=== PATIENT | female | born 1985 | race African-American/Black ===

== ENCOUNTER 2017-09-10 21:50 | Inpatient (IN) | payer MEDICAID ==
[~2017-09-10] VITALS: Ht 157.5 cm; Wt 49.9 kg
--- NOTE | 2017-09-10 21:47 | Emergency Room Report ---
History of Present Illness General Source: Patient Present Illness HPI Patient is a 31-year-old female presented after increased bleeding. The patient noted have prior history of cervical CVA and is currently receiving chemotherapy [place] to patient was noted to have increased rectal bleeding.The patient reports having had generalized weakness. Allergies: Coded Allergies: No Known Allergies (Unverified , 09/10/17) Patient History Reviewed Nursing Documentation: PMH: Agreed, PSxH: Agreed Review of Systems All Other Systems: negative except mentioned in HPI Physical Exam Sp02 EP Interpretation: reviewed, normal General Appearance: normal inspection, alert, lethargic, Chronically Ill Head: atraumatic ENT: normal ENT inspection, hearing grossly normal, normal voice Neck: normal inspection, full range of motion, supple, no bony tend Respiratory: normal inspection, lungs clear, normal breath sounds, no respiratory distress, no retraction, no wheezing Gastrointestinal: normal inspection, normal bowel sounds, non tender, soft, no guarding, no hernia Genitourinary: no CVA tenderness Musculoskeletal: normal inspection, back normal, normal range of motion Neurologic: normal inspection, alert, oriented x3, responsive, 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 The differential diagnosis included but was not limited to ulcer, diverticulosis, aortic aneurysm, arteriovenous formation, coagulopathy, cancer among others. Because of complexity of patient' s case laboratory testing and imaging studies were ordered. Laboratory testing showed evidence of severe anemia. Patient was noted to have active bleeding. Urinalysis showed evidence of urinary infection. The patient was given IV antibiotics as well as IV fluids she was noted to be tachycardic. The patient was transfused blood after consent was obtained. Patient given IV pain medications. Dr. Dano Guillaume was contacted for inpatient management due to panel physician. Labs Test 09/10/17 22:30 White Blood Count 14.0 K/UL (4.8-10.8) Red Blood Count 3.48 M/UL (4.20-5.40) Hemoglobin 8.1 G/DL (12.0-16.0) Hematocrit 27.5 % (37.0-47.0) Mean Corpuscular Volume 79 FL (80-99) Mean Corpuscular Hemoglobin 23.3 PG (27.0-31.0) Mean Corpuscular Hemoglobin Concent 29.4 G/DL (32.0-36.0) Red Cell Distribution Width 17.2 % (11.6-14.8) Platelet Count 758 K/UL (150-450) Mean Platelet Volume 5.0 FL (6.5-10.1) Neutrophils (%) (Auto) % (45.0-75.0) Lymphocytes (%) (Auto) % (20.0-45.0) Monocytes (%) (Auto) % (1.0-10.0) Eosinophils (%) (Auto) % (0.0-3.0) Basophils (%) (Auto) % (0.0-2.0) EKG Diagnostic Results Rate: tachycardiac - 135 Rhythm: NSR ST Segments: no acute changes ASA given to the pt in ED: No Rhythm Strip Diag. Results EP Interpretation: yes Rhythm: NSR, no PVC's Status: unchanged Disposition: ADMITTED INPATIENT Condition: Serious Harpreet Salinas Sep 10, 2017 21:47
[2017-09-10 22:39] VITALS: BP 103/76
[2017-09-10 23:03] LABS: HEMATOCRIT 27.5 % (37.0-47.0); HEMOGLOBIN 8.1 G/DL (12.0-16.0); MEAN CORPUSCULAR VOLUME 79 FL (80-99); PLATELET COUNT 758 K/UL (150-450); RED BLOOD COUNT 3.48 M/UL (4.20-5.40); RED CELL DISTRIBUTION WIDTH 17.2 % (11.6-14.8)
[2017-09-10 23:15] LABS: ANION GAP 8 mmol/L (5-15); BLOOD UREA NITROGEN 16 mg/dL (7-18); CALCIUM 8.3 MG/DL (8.5-10.1); CARBON DIOXIDE 30 MMOL/L (21-32); CHLORIDE 96 MMOL/L (98-107); CREATININE 0.7 MG/DL (0.55-1.30); POTASSIUM 4.4 MMOL/L (3.5-5.1); SODIUM 133 MMOL/L (136-145)
[2017-09-10 23:20] LABS: ALANINE AMINOTRANSFERASE 32 U/L (12-78); ALBUMIN 2.5 G/DL (3.4-5.0); ALBUMIN/GLOBULIN RATIO 0.5 (1.0-2.7); ALKALINE PHOSPHATASE 107 U/L (46-116); ASPARTATE AMINO TRANSFERASE 33 U/L (15-37); BILIRUBIN,TOTAL 0.3 MG/DL (0.2-1.0)
[2017-09-10 23:48] VITALS: BP 87/62
[2017-09-11] VITALS (12 sets, daily range): BP systolic 93–121; BP diastolic 49–86
[2017-09-11 00:53] LABS: BILIRUBIN, URINE 1+ (NEGATIVE); GLUCOSE, URINE (UA) NEGATIVE (NEGATIVE); KETONES,URINE NEGATIVE (NEGATIVE); LEUKOCYTE ESTERASE ,URINE 3+ (NEGATIVE); NITRITE,URINE NEGATIVE (NEGATIVE); PH,URINE 5 (4.5-8.0); PROTEIN,URINE 1+ (NEGATIVE); UROBILINOGEN,URINE 1 MG/DL (0.0-1.0)
[2017-09-11 01:09] LABS: APPEARANCE,URINE CLOUDY; COLOR,URINE YELLOW
[2017-09-11] MEDS ORDERED: cefTRIAXone 2 GM in NS 55 ML IVPB ONE (01:45)
[2017-09-11] MEDS ORDERED: OXYCODONE-ACET1 EAC5 ORAL (02:37)
[2017-09-11] MEDS ORDERED: Morphine Sulfate 4mg/ml Inj IVP ONE (02:45)
[2017-09-11] MEDS ORDERED: Morphine Sulfate 4mg/ml Inj ONE (03:34)
[2017-09-11] MEDS ORDERED: Morphine Sulfate 2mg/ml Inj IVP PRN (06:15)
[2017-09-11] MEDS ORDERED: Mylanta II UD 30ml ORAL PRN (06:15)
[2017-09-11] MEDS ORDERED: Miralax 17gm pkt ORAL PRN (06:15)
[2017-09-11] MEDS ORDERED: Nitroglycerin Subl 0.4mg tab SL PRN (06:15)
[2017-09-11] MEDS: D5NS 1,000 ML IV SCH (06:38)
[2017-09-11] MEDS ORDERED: Phytonadione 10 MG in D5W 55 ML IVPB ONE (08:00)
[2017-09-11] MEDS ORDERED: Phytonadione 10 mg/mL 1ml amp ONE (09:31)
[2017-09-11 09:45] LABS: BASOPHILS % (AUTO) 0.9 % (0.0-2.0); EOSINOPHILS % (AUTO) 0.3 % (0.0-3.0); HEMATOCRIT 33.9 % (37.0-47.0); HEMOGLOBIN 10.5 G/DL (12.0-16.0); LYMPHOCYTES % (AUTO) 7.5 % (20.0-45.0); MEAN CORPUSCULAR VOLUME 84 FL (80-99); MONOCYTES % (AUTO) 6.6 % (1.0-10.0); NEUTROPHILS % (AUTO) 84.7 % (45.0-75.0); PLATELET COUNT 488 K/UL (150-450); RED BLOOD COUNT 4.03 M/UL (4.20-5.40); RED CELL DISTRIBUTION WIDTH 15.5 % (11.6-14.8); WHITE BLOOD COUNT 11.2 K/UL (4.8-10.8)
[2017-09-11] MEDS: Morphine Sulfate 4mg/ml Inj IVP PRN ×3 (11:33→21:14)
--- NOTE | 2017-09-11 15:26 | Consultation ---
History of Present Illness General Date patient seen: Sep 11, 2017 Chief Complaint: Gastrointestinal Bleed Reason for Consultation: inpatient management Present Illness HPI 31-year-old female with hx of cervical cancer, on chemotherapy presented after increased bleeding. The patient reports having had generalized weakness. she is admitted for further work up. Allergies: Coded Allergies: No Known Allergies (Unverified , 09/10/17) Medication History Scheduled PRN Oxycodone Hcl/Acetaminophen 10-325* (Oxycodone-Acetaminophen 10-325*), 1 TAB ORAL Q6H PRN for For Pain, (Reported) Patient History Healthcare decision maker N Resuscitation status Advanced Directive on File Past Medical/Surgical History Past Medical/Surgical History: (1) Cervical cancer Review of Systems Constitutional: Reports: malaise, weakness Physical Exam General Appearance: cachetic Lines, tubes and drains: peripheral, central line HEENT: atraumatic Neck: non-tender, normal alignment Respiratory/Chest: lungs clear, normal breath sounds Cardiovascular/Chest: normal rate Abdomen: normal bowel sounds Genitourinary/Rectal: normal genital exam Extremities: normal range of motion, normal inspection Last 24 Hour Vital Signs Date Time Temp Pulse Resp B/P (MAP) Pulse Ox O2 Delivery O2 Flow Rate FiO2 09/11/17 14:45 98.7 100 12 113/61 100 Room Air 93 09/11/17 14:27 98.7 93 12 113/61 100 Room Air 09/11/17 11:08 100 14 108/73 100 Room Air 09/11/17 10:13 101 15 101/71 100 Room Air 09/11/17 09:25 98.5 09/11/17 05:40 98.5 107 17 103/72 98 Room Air 09/11/17 05:40 98.5 107 17 09/11/17 04:40 99.3 107 17 104/80 98 Room Air 09/11/17 03:30 99.3 113 16 09/11/17 03:30 99.3 113 16 112/86 99 Room Air 09/11/17 03:22 98.0 116 13 09/11/17 03:15 98.0 116 18 103/50 100 Room Air 09/11/17 02:50 98.1 114 13 09/11/17 02:50 98.1 114 13 109/71 96 Room Air 09/11/17 01:40 98.8 123 15 93/49 100 Room Air 09/11/17 01:40 98.8 123 15 09/11/17 01:25 98.7 121 17 09/11/17 01:25 98.7 121 17 103/70 100 Room Air 09/10/17 23:48 97.7 112 17 87/62 100 Room Air 09/10/17 22:39 97.7 127 16 103/76 100 Room Air 09/10/17 21:46 97.7 142 16 102/73 98 Room Air Intake and Output 09/10/17 09/11/17 19:00 07:00 Intake Total 1500 ml Balance 1500 ml Intake IV Total 1000 ml Blood Product 500 ml # Voids 1 Laboratory Tests Test 09/10/17 22:10 09/10/17 22:30 09/11/17 00:35 09/11/17 09:10 Lab Scanned Report Blood Bank/Transfusion White Blood Count 14.0 K/UL (4.8-10.8) H 11.2 K/UL (4.8-10.8) H Red Blood Count 3.48 M/UL (4.20-5.40) L 4.03 M/UL (4.20-5.40) L Hemoglobin 8.1 G/DL (12.0-16.0) L 10.5 G/DL (12.0-16.0) L Hematocrit 27.5 % (37.0-47.0) L 33.9 % (37.0-47.0) L Mean Corpuscular Volume 79 FL (80-99) L 84 FL (80-99) Mean Corpuscular Hemoglobin 23.3 PG (27.0-31.0) L 26.1 PG (27.0-31.0) L Mean Corpuscular Hemoglobin Concent 29.4 G/DL (32.0-36.0) L 31.0 G/DL (32.0-36.0) L Red Cell Distribution Width 17.2 % (11.6-14.8) H 15.5 % (11.6-14.8) H Platelet Count 758 K/UL (150-450) H 488 K/UL (150-450) H Mean Platelet Volume 5.0 FL (6.5-10.1) L 4.9 FL (6.5-10.1) L Neutrophils (%) (Auto) % (45.0-75.0) 84.7 % (45.0-75.0) H Lymphocytes (%) (Auto) % (20.0-45.0) 7.5 % (20.0-45.0) L Monocytes (%) (Auto) % (1.0-10.0) 6.6 % (1.0-10.0) Eosinophils (%) (Auto) % (0.0-3.0) 0.3 % (0.0-3.0) Basophils (%) (Auto) % (0.0-2.0) 0.9 % (0.0-2.0) Prothrombin Time 10.7 SEC (9.30-11.50) Prothromb Time International Ratio 1.0 (0.9-1.1) Activated Partial Thromboplast Time 37 SEC (23-33) H Sodium Level 133 MMOL/L (136-145) L Potassium Level 4.4 MMOL/L (3.5-5.1) Chloride Level 96 MMOL/L (98-107) L Carbon Dioxide Level 30 MMOL/L (21-32) Anion Gap 8 mmol/L (5-15) Blood Urea Nitrogen 16 mg/dL (7-18) Creatinine 0.7 MG/DL (0.55-1.30) Estimat Glomerular Filtration Rate > 60 mL/min (>60) Glucose Level 119 MG/DL (74-106) H Lactic Acid Level 1.10 mmol/L (0.66-2.22) Calcium Level 8.3 MG/DL (8.5-10.1) L Total Bilirubin 0.3 MG/DL (0.2-1.0) Aspartate Amino Transf (AST/SGOT) 33 U/L (15-37) Alanine Aminotransferase (ALT/SGPT) 32 U/L (12-78) Alkaline Phosphatase 107 U/L (46-116) Total Protein 8.0 G/DL (6.4-8.2) Albumin 2.5 G/DL (3.4-5.0) L Globulin 5.5 g/dL Albumin/Globulin Ratio 0.5 (1.0-2.7) L Urine Color Yellow Urine Appearance Cloudy Urine pH 5 (4.5-8.0) Urine Specific [place] 1.025 (1.005-1.035) Urine Protein 1+ (NEGATIVE) H Urine Glucose (UA) Negative (NEGATIVE) Urine Ketones Negative (NEGATIVE) Urine Occult Blood 2+ (NEGATIVE) H Urine Nitrite Negative (NEGATIVE) Urine Bilirubin 1+ (NEGATIVE) H Urine Ictotest Positive Urine Urobilinogen 1 MG/DL (0.0-1.0) H Urine Leukocyte Esterase 3+ (NEGATIVE) H Urine RBC 2-4 /HPF (0 - 2) H Urine WBC Tntc /HPF (0 - 2) H Urine Squamous Epithelial Cells Many /LPF (NONE/OCC) H Urine Bacteria Few /HPF (NONE) Height (Feet): 5 Height (Inches): 2.00 Weight (Pounds): 110 Medications Current Medications Medications (Trade) Dose Ordered Sig/Francoise Route PRN Reason Start Time Stop Time Status Last Admin Dose Admin Acetaminophen (Tylenol) 650 mg Q4H PRN ORAL fever 09/11/17 06:15 10/11/17 06:14 Al Hydroxide/Mg Hydroxide (Mylanta II) 30 ml Q6H PRN ORAL dyspepsia 09/11/17 06:15 10/11/17 06:14 Dextrose (Dextrose 50%) STAT PRN IV Hypoglycemia 09/11/17 06:15 10/11/17 06:14 Dextrose/Sodium Chloride 1,000 ml @ 100 mls/hr Q10H IV 09/11/17 06:14 10/11/17 06:13 09/11/17 06:38 Diphenhydramine HCl (Benadryl) 25 mg Q6H PRN ORAL Itching/Pruritis 09/11/17 06:15 10/11/17 06:14 Morphine Sulfate (Morphine Sulfate) 4 mg Q4H PRN IVP Pain 7-10 09/11/17 10:30 09/18/17 10:29 09/11/17 11:33 Nitroglycerin (Ntg) 0.4 mg Q5M X 3 DOSES PRN SL Prn Chest Pain 09/11/17 06:15 10/11/17 06:14 Ondansetron HCl (Zofran) 4 mg Q6H PRN IVP Nausea & Vomiting 09/11/17 06:15 10/11/17 06:14 Polyethylene Glycol (Miralax) 17 gm HSPRN PRN ORAL Constipation 09/11/17 06:15 10/11/17 06:14 Temazepam (Restoril) 15 mg HSPRN PRN ORAL Insomnia 09/11/17 06:15 09/18/17 06:14 Assessment/Plan Problem List: (1) Severe anemia ICD Codes: D64.9 - Anemia, unspecified SNOMED: 988457683 (2) Cervical cancer ICD Codes: C53.9 - Malignant neoplasm of cervix uteri, unspecified SNOMED: 588833613 (3) UTI (urinary tract infection) ICD Codes: N39.0 - Urinary tract infection, site not specified SNOMED: 37764300 Assessment/Plan prbc prn symptomatic treatment check h/h oncology evaluation JL CHAVEZ Sep 11, 2017 15:26
--- NOTE | 2017-09-11 17:15 | History and Physical Report ---
DATE OF ADMISSION: 09/11/2017 TIME SEEN: 3 p.m. CONSULTANTS: 1. Dimitrios Yung M.D. 2. Chris Spencer M.D. 3. Lon Jordan M.D. 4. Grant Ochoa M.D. CHIEF COMPLAINT: Abdominal pain, asthma, and history of cervical cancer. BRIEF HISTORY: This is a 32-year-old female with history of cervical cancer status post chemo and surgery presents with increasing abdominal pain for two days, increased to 8/10, asthma, slight nausea and vomiting, came to [facility], being diagnosed with the above, being admitted to [facility] floor shortly. Currently, slightly anxious, agitated in bed secondary to pain. No complaint otherwise. PAST MEDICAL HISTORY: Includes cervical cancer one year ago status post chemo. PAST SURGICAL HISTORY: Cervical surgery in 2017. MEDICATIONS: Include morphine, Tylenol, MiraLAX, Restoril, Benadryl, and Mylanta. ALLERGIES: Denies. SOCIAL HISTORY: No smoking. No alcohol. No intravenous drug abuse. FAMILY HISTORY: Noncontributory. REVIEW OF SYSTEMS: No chest pain. Slight short of breath. Slight nausea and vomiting. No diarrhea. PHYSICAL EXAMINATION: GENERAL: Slightly anxious in bed, oriented x3, and in no acute distress. VITAL SIGNS: Temperature is 98, pulse 100, respirations 12, and blood pressure 113/61. CARDIOVASCULAR: . LUNGS: Distant. ABDOMEN: Bowel sounds distant. Soft. No guarding. No rigidity. No rebound. EXTREMITIES: Show no cyanosis, clubbing, or edema. NEURO: The patient moves all extremities. Slightly weak. LABORATORY DATA: Lab exam show white count 11.2, hemoglobin and hematocrit 10 and 33, and platelets 288. BMP show sodium 133, chloride 96, and glucose 119. Albumin 2.5. INR is 1.0 and PTT is 37. Urinalysis, 3+ leukocyte esterase, otherwise 1+ protein, and 2+ occult blood. ASSESSMENT: 1. Abdominal pain. 2. Asthma. 3. Malnutrition. 4. Hyponatremia. 5. Urinary tract infection. 6. Gastrointestinal bleed. 7. Anemia. 8. Cervical cancer. PLAN: 1. Continue premeds. 2. Antiemetics. 3. Pain control. 4. OT, PT, and dietary evaluation. 5. CBC and BMP in the morning. 6. Antibiotics per Infectious Diseases. 7. Dr. Yung, Dr. Ochoa, Dr. Spencre, Dr. Jordan, Dr. Weiss, and Dr. Mauricio to consult. Dano Guillaume D.O. DR: THERESA JOB#: [id number] CC:
--- NOTE | 2017-09-11 19:00 | Consultation ---
DATE OF CONSULTATION: 09/11/2017 INFECTIOUS DISEASES CONSULTATION CONSULTING PHYSICIAN: Marco Dunbar M.D. PRIMARY ATTENDING PHYSICIAN: Dano Guillaume D.O. REASON FOR CONSULTATION: Pyuria, UTI. HISTORY OF PRESENT ILLNESS: The patient is a 32-year-old female admitted last night complaining of abdominal pain and rectal bleeding. The patient has history of cervical cancer diagnosed in 09/2016, with recurrence. The patient had surgery and chemotherapy. The last chemotherapy was given 1 month ago. She has lower abdominal and back pain, passing blood clots in stool. The patient has no fever. Since admission, the patient received blood transfusion for anemia. PAST MEDICAL HISTORY: Cervical cancer, on chemotherapy. MEDICATIONS: Getting morphine sulfate, Tylenol, MiraLAX, Zofran, temazepam, diphenhydramine, and also received a dose of ceftriaxone in the ER. SOCIAL HISTORY: Single. She has 3 children. REVIEW OF SYSTEMS: She has significant weight loss. In the past 3 months, she lost 40 pounds. No fever. No chills. No coughing. No nausea. No vomiting. Diarrhea and blood in stool, lower abdominal pain, back pain. PHYSICAL EXAMINATION: VITAL SIGNS: Temperature 98.7, pulse 100, and blood pressure is 113/61. GENERAL APPEARANCE: No acute distress. HEENT: [place] conjunctivae. No oral lesion. HEART: S1, S2. Regular. LUNGS: Clear. ABDOMEN: Soft. EXTREMITIES: No edema. LABORATORY AND DIAGNOSTIC DATA: WBC is 11.2 coming down from 14,000, hemoglobin 10.5 which is after blood transfusion coming up from 8.1, hematocrit 33.9, and platelets 488,000. Sodium 133, potassium 4.4, chloride 96, bicarbonate 30, BUN 16, and creatinine 0.7. UA showed WBC too numerous to count, leukocyte esterase 3+. IMPRESSION: Pyuria, may have urinary tract infection. The patient has lower abdominal pain, also has history of cervical cancer, on chemotherapy, has rectal bleeding, and has anemia status post transfusion. RECOMMENDATION: We will continue with Rocephin. At the end of my exam, I thank Dr. Dano Guillaume for involving me in the care of this patient. We will follow up the cultures. Marco Dunbar M.D. DR: DONTA JOB#: [id number] CC:
--- NOTE | 2017-09-11 21:49 | Cardiology Report ---
APPROVED REPORT EKG Measurement Heart [id number] Sinus tachycardia Rightward axis Abnormal ECG
[2017-09-12] VITALS: BP 112/79
[2017-09-12] MEDS: Morphine Sulfate 4mg/ml Inj IVP PRN ×5 (02:10→20:47)
[2017-09-12 04:00] VITALS: BP 113/83
[2017-09-12 08:00] VITALS: BP 115/77
[2017-09-12 08:26] LABS: BASOPHILS % (AUTO) 1.2 % (0.0-2.0); EOSINOPHILS % (AUTO) 1.1 % (0.0-3.0); HEMATOCRIT 28.4 % (37.0-47.0); HEMOGLOBIN 9.2 G/DL (12.0-16.0); LYMPHOCYTES % (AUTO) 7.5 % (20.0-45.0); MEAN CORPUSCULAR VOLUME 83 FL (80-99); MONOCYTES % (AUTO) 9.4 % (1.0-10.0); NEUTROPHILS % (AUTO) 80.8 % (45.0-75.0); PLATELET COUNT 492 K/UL (150-450); RED CELL DISTRIBUTION WIDTH 15.8 % (11.6-14.8); WHITE BLOOD COUNT 8.7 K/UL (4.8-10.8)
[2017-09-12 08:43] LABS: ALBUMIN 2.4 G/DL (3.4-5.0); ALBUMIN/GLOBULIN RATIO 0.5 (1.0-2.7); ALKALINE PHOSPHATASE 94 U/L (46-116); AMYLASE 24 U/L (25-115); ANION GAP 7 mmol/L (5-15); ASPARTATE AMINO TRANSFERASE 21 U/L (15-37); BILIRUBIN,TOTAL 0.6 MG/DL (0.2-1.0); BLOOD UREA NITROGEN 8 mg/dL (7-18); CALCIUM 8.4 MG/DL (8.5-10.1); CARBON DIOXIDE 28 MMOL/L (21-32); CHLORIDE 98 MMOL/L (98-107); CREATININE 0.6 MG/DL (0.55-1.30); POTASSIUM 3.8 MMOL/L (3.5-5.1); SODIUM 133 MMOL/L (136-145)
--- NOTE | 2017-09-12 09:08 | Consultation ---
History of Present Illness General Date patient seen: Sep 12, 2017 Chief Complaint: Present Illness Allergies: Coded Allergies: No Known Allergies (Unverified , 09/10/17) Medication History Scheduled PRN Oxycodone Hcl/Acetaminophen 10-325* (Oxycodone-Acetaminophen 10-325*), 1 TAB ORAL Q6H PRN for For Pain, (Reported) Patient History Healthcare decision maker N Resuscitation status Full Code Advanced Directive on File No Physical Exam Last 24 Hour Vital Signs Date Time Temp Pulse Resp B/P (MAP) Pulse Ox O2 Delivery O2 Flow Rate FiO2 09/12/17 04:00 98.2 96 20 113/83 99 Room Air 09/12/17 04:00 85 09/12/17 00:00 98.2 94 20 112/79 100 Room Air 09/12/17 00:00 92 09/11/17 20:00 99.0 86 18 121/73 99 Room Air 09/11/17 16:49 98.7 09/11/17 16:00 98.2 92 18 116/77 99 Room Air 09/11/17 16:00 92 09/11/17 14:45 98.7 100 12 113/61 100 Room Air 93 09/11/17 14:27 98.7 93 12 113/61 100 Room Air 09/11/17 11:08 100 14 108/73 100 Room Air 09/11/17 10:13 101 15 101/71 100 Room Air 09/11/17 09:25 98.5 Intake and Output 09/11/17 09/12/17 19:00 07:00 Intake Total 200 ml Balance 200 ml Intake Oral 200 ml # Voids 1 Laboratory Tests Test 09/11/17 09:10 09/11/17 21:20 09/12/17 07:35 White Blood Count 11.2 K/UL (4.8-10.8) H 8.7 K/UL (4.8-10.8) Red Blood Count 4.03 M/UL (4.20-5.40) L 3.40 M/UL (4.20-5.40) L Hemoglobin 10.5 G/DL (12.0-16.0) L 9.2 G/DL (12.0-16.0) L Hematocrit 33.9 % (37.0-47.0) L 28.4 % (37.0-47.0) L Mean Corpuscular Volume 84 FL (80-99) 83 FL (80-99) Mean Corpuscular Hemoglobin 26.1 PG (27.0-31.0) L 27.2 PG (27.0-31.0) Mean Corpuscular Hemoglobin Concent 31.0 G/DL (32.0-36.0) L 32.6 G/DL (32.0-36.0) Red Cell Distribution Width 15.5 % (11.6-14.8) H 15.8 % (11.6-14.8) H Platelet Count 488 K/UL (150-450) H 492 K/UL (150-450) H Mean Platelet Volume 4.9 FL (6.5-10.1) L 5.2 FL (6.5-10.1) L Neutrophils (%) (Auto) 84.7 % (45.0-75.0) H 80.8 % (45.0-75.0) H Lymphocytes (%) (Auto) 7.5 % (20.0-45.0) L 7.5 % (20.0-45.0) L Monocytes (%) (Auto) 6.6 % (1.0-10.0) 9.4 % (1.0-10.0) Eosinophils (%) (Auto) 0.3 % (0.0-3.0) 1.1 % (0.0-3.0) Basophils (%) (Auto) 0.9 % (0.0-2.0) 1.2 % (0.0-2.0) Reticulocyte Count 0.7 % (0.0-2.0) Soluble Transferrin Receptor Pending Ferritin 209 NG/ML (8-388) Vitamin B12 Level 1050 PG/ML (193-986) H Thyroid Stimulating Hormone (TSH) 0.787 uiU/mL (0.358-3.740) Prothrombin Time 10.2 SEC (9.30-11.50) Prothromb Time International Ratio 1.0 (0.9-1.1) Activated Partial Thromboplast Time 37 SEC (23-33) H Sodium Level 133 MMOL/L (136-145) L Potassium Level 3.8 MMOL/L (3.5-5.1) Chloride Level 98 MMOL/L (98-107) Carbon Dioxide Level 28 MMOL/L (21-32) Anion Gap 7 mmol/L (5-15) Blood Urea Nitrogen 8 mg/dL (7-18) Creatinine 0.6 MG/DL (0.55-1.30) Estimat Glomerular Filtration Rate > 60 mL/min (>60) Glucose Level 87 MG/DL (74-106) Calcium Level 8.4 MG/DL (8.5-10.1) L Total Bilirubin 0.6 MG/DL (0.2-1.0) Aspartate Amino Transf (AST/SGOT) 21 U/L (15-37) Alanine Aminotransferase (ALT/SGPT) Pending Alkaline Phosphatase 94 U/L (46-116) Total Protein 7.3 G/DL (6.4-8.2) Albumin 2.4 G/DL (3.4-5.0) L Globulin 4.9 g/dL Albumin/Globulin Ratio 0.5 (1.0-2.7) L Amylase Level 24 U/L (25-115) L Lipase 62 U/L (73-393) L Height (Feet): 5 Height (Inches): 2.00 Weight (Pounds): 110 Medications Current Medications Medications (Trade) Dose Ordered Sig/Francoise Route PRN Reason Start Time Stop Time Status Last Admin Dose Admin Acetaminophen (Tylenol) 650 mg Q4H PRN ORAL fever 09/11/17 06:15 10/11/17 06:14 Al Hydroxide/Mg Hydroxide (Mylanta II) 30 ml Q6H PRN ORAL dyspepsia 09/11/17 06:15 10/11/17 06:14 Ceftriaxone Sodium 1 gm/ Dextrose 55 ml @ 110 mls/hr Q24H IVPB 09/12/17 08:00 09/19/17 07:59 Dextrose (Dextrose 50%) STAT PRN IV Hypoglycemia 09/11/17 06:15 10/11/17 06:14 Dextrose/Sodium Chloride 1,000 ml @ 100 mls/hr Q10H IV 09/11/17 06:14 10/11/17 06:13 09/11/17 06:38 Diphenhydramine HCl (Benadryl) 25 mg Q6H PRN ORAL Itching/Pruritis 09/11/17 06:15 10/11/17 06:14 Morphine Sulfate (Morphine Sulfate) 4 mg Q4H PRN IVP Pain 7-10 09/11/17 10:30 09/18/17 10:29 09/12/17 06:23 Nitroglycerin (Ntg) 0.4 mg Q5M X 3 DOSES PRN SL Prn Chest Pain 09/11/17 06:15 10/11/17 06:14 Ondansetron HCl (Zofran) 4 mg Q6H PRN IVP Nausea & Vomiting 09/11/17 06:15 10/11/17 06:14 Polyethylene Glycol (Miralax) 17 gm HSPRN PRN ORAL Constipation 09/11/17 06:15 10/11/17 06:14 Temazepam (Restoril) 15 mg HSPRN PRN ORAL Insomnia 09/11/17 06:15 09/18/17 06:14 Assessment/Plan Assessment/Plan (1) Intractable abdominal pain (2) Cervical CA Seen dictated. ROSA MARIA MELGAR Sep 12, 2017 09:08
[2017-09-12 09:52] LABS: ALANINE AMINOTRANSFERASE 30 U/L (12-78)
[2017-09-12] MEDS: cefTRIAXone 1 GM in D5W 55 ML IVPB SCH (11:48)
[2017-09-12 12:00] VITALS: BP 112/76
[2017-09-12] MEDS: D5NS 1,000 ML IV SCH ×3 (12:14→22:14)
--- NOTE | 2017-09-12 13:20 | Infectious Diseases Prog Note ---
Assessment/Plan Assessment/Plan A; Pyuria/ UTI Cervical cancer GI bleeding Anemia P; Continue Rocephin Subjective ROS Limited/Unobtainable: No Constitutional: Reports: other - feels better HEENT: Reports: no symptoms Cardiovascular: Reports: no symptoms Gastrointestinal/Abdominal: Reports: no symptoms, other - on clear liquid diet Genitourinary: Reports: no symptoms Musculoskeletal: Reports: pain, other - controlled Allergies: Coded Allergies: No Known Allergies (Unverified , 09/10/17) Objective Vital Signs Last 24 Hour Vital Signs Date Time Temp Pulse Resp B/P (MAP) Pulse Ox O2 Delivery O2 Flow Rate FiO2 09/12/17 04:00 98.2 96 20 113/83 99 Room Air 09/12/17 04:00 85 09/12/17 00:00 98.2 94 20 112/79 100 Room Air 09/12/17 00:00 92 09/11/17 20:00 99.0 86 18 121/73 99 Room Air 09/11/17 16:49 98.7 09/11/17 16:00 98.2 92 18 116/77 99 Room Air 09/11/17 16:00 92 09/11/17 14:45 98.7 100 12 113/61 100 Room Air 93 09/11/17 14:27 98.7 93 12 113/61 100 Room Air Height (Feet): 5 Height (Inches): 2.00 Weight (Pounds): 110 General Appearance: no acute distress HEENT: anicteric Respiratory/Chest: lungs clear Cardiovascular: normal rate Abdomen: soft, non tender Extremities: no edema Neurologic/Psychiatric: alert, oriented x 3, responsive Microbiology Date/Time Source Procedure Growth Status 09/10/17 22:35 Blood Blood Culture - Preliminary NO GROWTH AFTER 24 HOURS Resulted 09/10/17 22:30 Blood Blood Culture - Preliminary NO GROWTH AFTER 24 HOURS Resulted 09/11/17 00:35 Urine,Clean Catch Urine Culture - Preliminary Mixed Gram Positive Organism Resulted Laboratory Tests Test 09/11/17 21:20 09/12/17 07:35 Reticulocyte Count 0.7 % (0.0-2.0) Soluble Transferrin Receptor Pending Ferritin 209 NG/ML (8-388) Vitamin B12 Level 1050 PG/ML (193-986) H Thyroid Stimulating Hormone (TSH) 0.787 uiU/mL (0.358-3.740) White Blood Count 8.7 K/UL (4.8-10.8) Red Blood Count 3.40 M/UL (4.20-5.40) L Hemoglobin 9.2 G/DL (12.0-16.0) L Hematocrit 28.4 % (37.0-47.0) L Mean Corpuscular Volume 83 FL (80-99) Mean Corpuscular Hemoglobin 27.2 PG (27.0-31.0) Mean Corpuscular Hemoglobin Concent 32.6 G/DL (32.0-36.0) Red Cell Distribution Width 15.8 % (11.6-14.8) H Platelet Count 492 K/UL (150-450) H Mean Platelet Volume 5.2 FL (6.5-10.1) L Neutrophils (%) (Auto) 80.8 % (45.0-75.0) H Lymphocytes (%) (Auto) 7.5 % (20.0-45.0) L Monocytes (%) (Auto) 9.4 % (1.0-10.0) Eosinophils (%) (Auto) 1.1 % (0.0-3.0) Basophils (%) (Auto) 1.2 % (0.0-2.0) Prothrombin Time 10.2 SEC (9.30-11.50) Prothromb Time International Ratio 1.0 (0.9-1.1) Activated Partial Thromboplast Time 37 SEC (23-33) H Sodium Level 133 MMOL/L (136-145) L Potassium Level 3.8 MMOL/L (3.5-5.1) Chloride Level 98 MMOL/L (98-107) Carbon Dioxide Level 28 MMOL/L (21-32) Anion Gap 7 mmol/L (5-15) Blood Urea Nitrogen 8 mg/dL (7-18) Creatinine 0.6 MG/DL (0.55-1.30) Estimat Glomerular Filtration Rate > 60 mL/min (>60) Glucose Level 87 MG/DL (74-106) Calcium Level 8.4 MG/DL (8.5-10.1) L Total Bilirubin 0.6 MG/DL (0.2-1.0) Aspartate Amino Transf (AST/SGOT) 21 U/L (15-37) Alanine Aminotransferase (ALT/SGPT) 30 U/L (12-78) Alkaline Phosphatase 94 U/L (46-116) Total Protein 7.3 G/DL (6.4-8.2) Albumin 2.4 G/DL (3.4-5.0) L Globulin 4.9 g/dL Albumin/Globulin Ratio 0.5 (1.0-2.7) L Amylase Level 24 U/L (25-115) L Lipase 62 U/L (73-393) L Current Medications Medications (Trade) Dose Ordered Sig/[place] Route PRN Reason Start Time Stop Time Status Last Admin Dose Admin Acetaminophen (Tylenol) 650 mg Q4H PRN ORAL fever 09/11/17 06:15 10/11/17 06:14 Al Hydroxide/Mg Hydroxide (Mylanta II) 30 ml Q6H PRN ORAL dyspepsia 09/11/17 06:15 10/11/17 06:14 Ceftriaxone Sodium 1 gm/ Dextrose 55 ml @ 110 mls/hr Q24H IVPB 09/12/17 08:00 09/19/17 07:59 09/12/17 11:48 Dextrose (Dextrose 50%) STAT PRN IV Hypoglycemia 09/11/17 06:15 10/11/17 06:14 Dextrose/Sodium Chloride 1,000 ml @ 100 mls/hr Q10H IV 09/11/17 06:14 10/11/17 06:13 09/11/17 06:38 Diphenhydramine HCl (Benadryl) 25 mg Q6H PRN ORAL Itching/Pruritis 09/11/17 06:15 10/11/17 06:14 Morphine Sulfate (Morphine Sulfate) 4 mg Q4H PRN IVP Pain 7-10 09/11/17 10:30 09/18/17 10:29 09/12/17 10:08 Nitroglycerin (Ntg) 0.4 mg Q5M X 3 DOSES PRN SL Prn Chest Pain 09/11/17 06:15 10/11/17 06:14 Ondansetron HCl (Zofran) 4 mg Q6H PRN IVP Nausea & Vomiting 09/11/17 06:15 10/11/17 06:14 Oxycodone/ Acetaminophen (Percocet 10/325) 1 tab Q6H PRN ORAL Moderate Breakthru Pain (5-7) 09/12/17 10:00 09/19/17 09:59 09/12/17 12:10 Polyethylene Glycol (Miralax) 17 gm HSPRN PRN ORAL Constipation 09/11/17 06:15 10/11/17 06:14 Temazepam (Restoril) 15 mg HSPRN PRN ORAL Insomnia 09/11/17 06:15 09/18/17 06:14 CHERYLE WOLFE Sep 12, 2017 13:20
--- NOTE | 2017-09-12 14:48 | Pulmonology Progress Note ---
Assessment/Plan Problems: (1) Severe anemia (2) Cervical cancer (3) UTI (urinary tract infection) Assessment/Plan feeling better continue abx check cultures symptomatic treatment med/surg Subjective ROS Limited/Unobtainable: No Constitutional: Reports: no symptoms HEENT: Repors: no symptoms Allergies: Coded Allergies: No Known Allergies (Unverified , 09/10/17) Objective Last 24 Hour Vital Signs Date Time Temp Pulse Resp B/P (MAP) Pulse Ox O2 Delivery O2 Flow Rate FiO2 09/12/17 12:00 98.1 90 20 112/76 98 Room Air 09/12/17 08:00 97.9 99 20 115/77 99 Room Air 09/12/17 04:00 98.2 96 20 113/83 99 Room Air 09/12/17 04:00 85 09/12/17 00:00 98.2 94 20 112/79 100 Room Air 09/12/17 00:00 92 09/11/17 20:00 99.0 86 18 121/73 99 Room Air 09/11/17 16:49 98.7 09/11/17 16:00 98.2 92 18 116/77 99 Room Air 09/11/17 16:00 92 Intake and Output 09/11/17 09/12/17 19:00 07:00 Intake Total 200 ml Balance 200 ml Intake Oral 200 ml # Voids 1 Objective . General Appearance: cachetic HEENT: normocephalic, atraumatic Respiratory/Chest: chest wall non-tender, normal breath sounds Breasts: no masses Cardiovascular: normal peripheral pulses Abdomen: normal bowel sounds, soft, non tender Genitourinary: normal external genitalia Extremities: no cyanosis Skin: no lesions Neurologic/Psychiatric: feather edger II-XII grossly normal Microbiology Date/Time Source Procedure Growth Status 09/10/17 22:35 Blood Blood Culture - Preliminary NO GROWTH AFTER 24 HOURS Resulted 09/10/17 22:30 Blood Blood Culture - Preliminary NO GROWTH AFTER 24 HOURS Resulted 09/11/17 00:35 Urine,Clean Catch Urine Culture - Preliminary Mixed Gram Positive Organism Resulted Laboratory Tests 09/11/17 21:20: Reticulocyte Count 0.7, Soluble Transferrin Receptor [Pending], Ferritin 209, Vitamin B12 Level 1050H, Thyroid Stimulating Hormone (TSH) 0.787 09/12/17 07:35: White Blood Count 8.7, Red Blood Count 3.40L, Hemoglobin 9.2L, Hematocrit 28.4L , Mean Corpuscular Volume 83, Mean Corpuscular Hemoglobin 27.2, Mean Corpuscular Hemoglobin Concent 32.6, Red Cell Distribution Width 15.8H, Platelet Count 492H, Mean Platelet Volume 5.2L, Neutrophils (%) (Auto) 80.8H, Lymphocytes (%) (Auto) 7.5L, Monocytes (%) (Auto) 9.4, Eosinophils (%) (Auto) 1.1, Basophils (%) (Auto) 1.2, Prothrombin Time 10.2, Prothromb Time International Ratio 1.0, Activated Partial Thromboplast Time 37H, Sodium Level 133L, Potassium Level 3.8, Chloride Level 98, Carbon Dioxide Level 28, Anion Gap 7, Blood Urea Nitrogen 8, Creatinine 0.6, Estimat Glomerular Filtration Rate > 60, Glucose Level 87, Calcium Level 8.4L, Total Bilirubin 0.6, Aspartate Amino Transf (AST/SGOT) 21, Alanine Aminotransferase (ALT/SGPT) 30, Alkaline Phosphatase 94, Total Protein 7.3, Albumin 2.4L, Globulin 4.9, Albumin/Globulin Ratio 0.5L, Amylase Level 24L, Lipase 62L Current Medications Medications (Trade) Dose Ordered Sig/Francoise Route PRN Reason Start Time Stop Time Status Last Admin Dose Admin Acetaminophen (Tylenol) 650 mg Q4H PRN ORAL fever 09/11/17 06:15 10/11/17 06:14 Al Hydroxide/Mg Hydroxide (Mylanta II) 30 ml Q6H PRN ORAL dyspepsia 09/11/17 06:15 10/11/17 06:14 Ceftriaxone Sodium 1 gm/ Dextrose 55 ml @ 110 mls/hr Q24H IVPB 09/12/17 08:00 09/19/17 07:59 09/12/17 11:48 Dextrose (Dextrose 50%) STAT PRN IV Hypoglycemia 09/11/17 06:15 10/11/17 06:14 Dextrose/Sodium Chloride 1,000 ml @ 100 mls/hr Q10H IV 09/11/17 06:14 10/11/17 06:13 09/11/17 06:38 Diphenhydramine HCl (Benadryl) 25 mg Q6H PRN ORAL Itching/Pruritis 09/11/17 06:15 10/11/17 06:14 Morphine Sulfate (Morphine Sulfate) 4 mg Q4H PRN IVP Pain 7-10 09/11/17 10:30 09/18/17 10:29 09/12/17 10:08 Nitroglycerin (Ntg) 0.4 mg Q5M X 3 DOSES PRN SL Prn Chest Pain 09/11/17 06:15 10/11/17 06:14 Ondansetron HCl (Zofran) 4 mg Q6H PRN IVP Nausea & Vomiting 09/11/17 06:15 10/11/17 06:14 Oxycodone/ Acetaminophen (Percocet 10/325) 1 tab Q6H PRN ORAL Moderate Breakthru Pain (5-7) 09/12/17 10:00 09/19/17 09:59 09/12/17 12:10 Polyethylene Glycol (Miralax) 17 gm HSPRN PRN ORAL Constipation 09/11/17 06:15 10/11/17 06:14 Temazepam (Restoril) 15 mg HSPRN PRN ORAL Insomnia 09/11/17 06:15 09/18/17 06:14 JL CHAVEZ Sep 12, 2017 14:48
--- NOTE | 2017-09-12 15:20 | General Progress Note ---
Assessment/Plan Problem List: (1) UTI (urinary tract infection) ICD Codes: N39.0 - Urinary tract infection, site not specified SNOMED: 61163441 (2) Gastrointestinal hemorrhage ICD Codes: K92.2 - Gastrointestinal hemorrhage, unspecified SNOMED: 34469325 (3) Cervical cancer ICD Codes: C53.9 - Malignant neoplasm of cervix uteri, unspecified SNOMED: 046354606 (4) Severe anemia ICD Codes: D64.9 - Anemia, unspecified SNOMED: 042019738 Status: unchanged Assessment/Plan ot pt diet abx pain control gi f/u cbc bmp am Subjective Constitutional: Reports: weakness Allergies: Coded Allergies: No Known Allergies (Unverified , 09/10/17) All Systems: reviewed and negative except above Subjective c/o gen pain Objective Last 24 Hour Vital Signs Date Time Temp Pulse Resp B/P (MAP) Pulse Ox O2 Delivery O2 Flow Rate FiO2 09/12/17 12:00 98.1 90 20 112/76 98 Room Air 09/12/17 08:00 97.9 99 20 115/77 99 Room Air 09/12/17 04:00 98.2 96 20 113/83 99 Room Air 09/12/17 04:00 85 09/12/17 00:00 98.2 94 20 112/79 100 Room Air 09/12/17 00:00 92 09/11/17 20:00 99.0 86 18 121/73 99 Room Air 09/11/17 16:49 98.7 09/11/17 16:00 98.2 92 18 116/77 99 Room Air 09/11/17 16:00 92 Intake and Output 09/11/17 09/12/17 19:00 07:00 Intake Total 200 ml Balance 200 ml Intake Oral 200 ml # Voids 1 Laboratory Tests 09/11/17 21:20: Reticulocyte Count 0.7, Soluble Transferrin Receptor [Pending], Ferritin 209, Vitamin B12 Level 1050H, Thyroid Stimulating Hormone (TSH) 0.787 09/12/17 07:35: White Blood Count 8.7, Red Blood Count 3.40L, Hemoglobin 9.2L, Hematocrit 28.4L , Mean Corpuscular Volume 83, Mean Corpuscular Hemoglobin 27.2, Mean Corpuscular Hemoglobin Concent 32.6, Red Cell Distribution Width 15.8H, Platelet Count 492H, Mean Platelet Volume 5.2L, Neutrophils (%) (Auto) 80.8H, Lymphocytes (%) (Auto) 7.5L, Monocytes (%) (Auto) 9.4, Eosinophils (%) (Auto) 1.1, Basophils (%) (Auto) 1.2, Prothrombin Time 10.2, Prothromb Time International Ratio 1.0, Activated Partial Thromboplast Time 37H, Sodium Level 133L, Potassium Level 3.8, Chloride Level 98, Carbon Dioxide Level 28, Anion Gap 7, Blood Urea Nitrogen 8, Creatinine 0.6, Estimat Glomerular Filtration Rate > 60, Glucose Level 87, Calcium Level 8.4L, Total Bilirubin 0.6, Aspartate Amino Transf (AST/SGOT) 21, Alanine Aminotransferase (ALT/SGPT) 30, Alkaline Phosphatase 94, Total Protein 7.3, Albumin 2.4L, Globulin 4.9, Albumin/Globulin Ratio 0.5L, Amylase Level 24L, Lipase 62L Height (Feet): 5 Height (Inches): 2.00 Weight (Pounds): 110 General Appearance: lethargic EENT: normal ENT inspection Neck: normal alignment Cardiovascular: normal peripheral pulses, normal rate, regular rhythm Respiratory/Chest: chest wall non-tender, lungs clear, normal breath sounds Abdomen: normal bowel sounds, soft Extremities: normal inspection Edema: no edema noted Arm (L), no edema noted Arm (R), no edema noted Leg (L), no edema noted Leg (R), no edema noted Pedal (L), no edema noted Pedal (R), no edema noted Generalized Neurologic: responsive, motor weakness Skin: normal pigmentation, warm/dry SONIDO FELICIANO Sep 12, 2017 15:20
[2017-09-12 16:00] VITALS: BP 122/79
--- NOTE | 2017-09-12 16:10 | GI Initial Consult Note ---
History of Present Illness General Date patient seen: Sep 12, 2017 Time patient seen: 15:47 Reason for Hospitalization: Gastrointestinal Bleed Referring physician: SONIDO FELICIANO Reason for Consultation: R/O GI BLEED Present Illness HPI Patient is a 31-year-old female presented after increased bleeding. The patient noted have prior history of cervical CVA and is currently receiving chemotherapy Bruce Peggs to patient was noted to have increased rectal bleeding.The patient reports having had generalized weakness. GI consulted r/o GI bleed. HPI noted above. Pt seen on floor, awake A&Ox4 NAD with no active s/sx of N/V/D. Per patient report, the patient c/o of diarrhea with noted large amounts of blood clots. Currently complain of generalized weakness. No known history of endoscopies or colonoscopies.. Home Meds Reported Medications Oxycodone Hcl/Acetaminophen 10-325* (OXYCODONE-ACETAMINOPHEN 10-325*) 1 Each Tablet, 1 TAB ORAL Q6H Y for For Pain, #30 TAB 0 Refills 09/11/17 Med list reviewed/reconciled: Yes Allergies: Coded Allergies: No Known Allergies (Unverified , 09/10/17) Patient History History Provided By: Patient, Medical Record PMH Narrative Patient History Reviewed Nursing Documentation: PMH: Agreed, PSxH: Agreed Social History: Denies: smoking, alcohol use, drug use, other Review of Systems All Other Systems: negative except mentioned in HPI Physical Exam Vital Signs Date Time Temp Pulse Resp B/P (MAP) Pulse Ox O2 Delivery O2 Flow Rate FiO2 09/10/17 21:46 97.7 142 16 102/73 98 Room Air Sp02 EP Interpretation: reviewed, normal Labs Laboratory Tests Test 09/11/17 21:20 09/12/17 07:35 Reticulocyte Count 0.7 % (0.0-2.0) Soluble Transferrin Receptor Pending Ferritin 209 NG/ML (8-388) Vitamin B12 Level 1050 PG/ML (193-986) H Thyroid Stimulating Hormone (TSH) 0.787 uiU/mL (0.358-3.740) White Blood Count 8.7 K/UL (4.8-10.8) Red Blood Count 3.40 M/UL (4.20-5.40) L Hemoglobin 9.2 G/DL (12.0-16.0) L Hematocrit 28.4 % (37.0-47.0) L Mean Corpuscular Volume 83 FL (80-99) Mean Corpuscular Hemoglobin 27.2 PG (27.0-31.0) Mean Corpuscular Hemoglobin Concent 32.6 G/DL (32.0-36.0) Red Cell Distribution Width 15.8 % (11.6-14.8) H Platelet Count 492 K/UL (150-450) H Mean Platelet Volume 5.2 FL (6.5-10.1) L Neutrophils (%) (Auto) 80.8 % (45.0-75.0) H Lymphocytes (%) (Auto) 7.5 % (20.0-45.0) L Monocytes (%) (Auto) 9.4 % (1.0-10.0) Eosinophils (%) (Auto) 1.1 % (0.0-3.0) Basophils (%) (Auto) 1.2 % (0.0-2.0) Prothrombin Time 10.2 SEC (9.30-11.50) Prothromb Time International Ratio 1.0 (0.9-1.1) Activated Partial Thromboplast Time 37 SEC (23-33) H Sodium Level 133 MMOL/L (136-145) L Potassium Level 3.8 MMOL/L (3.5-5.1) Chloride Level 98 MMOL/L (98-107) Carbon Dioxide Level 28 MMOL/L (21-32) Anion Gap 7 mmol/L (5-15) Blood Urea Nitrogen 8 mg/dL (7-18) Creatinine 0.6 MG/DL (0.55-1.30) Estimat Glomerular Filtration Rate > 60 mL/min (>60) Glucose Level 87 MG/DL (74-106) Calcium Level 8.4 MG/DL (8.5-10.1) L Total Bilirubin 0.6 MG/DL (0.2-1.0) Aspartate Amino Transf (AST/SGOT) 21 U/L (15-37) Alanine Aminotransferase (ALT/SGPT) 30 U/L (12-78) Alkaline Phosphatase 94 U/L (46-116) Total Protein 7.3 G/DL (6.4-8.2) Albumin 2.4 G/DL (3.4-5.0) L Globulin 4.9 g/dL Albumin/Globulin Ratio 0.5 (1.0-2.7) L Amylase Level 24 U/L (25-115) L Lipase 62 U/L (73-393) L General Appearance: well appearing, no apparent distress, alert, thin Head: normocephalic EENT: PERRL/EOMI, normal ENT inspection Neck: supple Respiratory: normal breath sounds, no respiratory distress Cardiovascular: normal rate Gastrointestinal: normal inspection, non tender, soft, normal bowel sounds, non -distended Rectal: deferred Genitourinary: no CVA tenderness Musculoskeletal: normal inspection, back normal Neurologic: normal inspection, alert, oriented x3, responsive Psychiatric: normal inspection, judgement/insight normal, memory normal Skin: normal inspection, normal color, no rash, warm/dry, palpation normal, well hydrated Lymphatic: normal inspection, no adenopathy Current Medications Current Medications Medications (Trade) Dose Ordered Sig/Francoise Route PRN Reason Start Time Stop Time Status Last Admin Dose Admin Acetaminophen (Tylenol) 650 mg Q4H PRN ORAL fever 09/11/17 06:15 10/11/17 06:14 Al Hydroxide/Mg Hydroxide (Mylanta II) 30 ml Q6H PRN ORAL dyspepsia 09/11/17 06:15 10/11/17 06:14 Ceftriaxone Sodium 1 gm/ Dextrose 55 ml @ 110 mls/hr Q24H IVPB 09/12/17 08:00 09/19/17 07:59 09/12/17 11:48 Dextrose (Dextrose 50%) STAT PRN IV Hypoglycemia 09/11/17 06:15 10/11/17 06:14 Dextrose/Sodium Chloride 1,000 ml @ 100 mls/hr Q10H IV 09/11/17 06:14 10/11/17 06:13 09/11/17 06:38 Diphenhydramine HCl (Benadryl) 25 mg Q6H PRN ORAL Itching/Pruritis 09/11/17 06:15 10/11/17 06:14 Morphine Sulfate (Morphine Sulfate) 4 mg Q4H PRN IVP Pain 7-10 09/11/17 10:30 09/18/17 10:29 09/12/17 10:08 Nitroglycerin (Ntg) 0.4 mg Q5M X 3 DOSES PRN SL Prn Chest Pain 09/11/17 06:15 10/11/17 06:14 Ondansetron HCl (Zofran) 4 mg Q6H PRN IVP Nausea & Vomiting 09/11/17 06:15 10/11/17 06:14 Oxycodone/ Acetaminophen (Percocet 10/325) 1 tab Q6H PRN ORAL Moderate Breakthru Pain (5-7) 09/12/17 10:00 09/19/17 09:59 09/12/17 12:10 Polyethylene Glycol (Miralax) 17 gm HSPRN PRN ORAL Constipation 09/11/17 06:15 10/11/17 06:14 Temazepam (Restoril) 15 mg HSPRN PRN ORAL Insomnia 09/11/17 06:15 09/18/17 06:14 GI: Plan Problems: (1) Cervical cancer (2) Severe anemia (3) Gastrointestinal hemorrhage Plan possible acute chemotherapy-related diarrhea send for cdiff, stool studies OB stool r/o GI bleed vs cervical anemia work up reviewed monitor H&H, prn transfusions ppi electrolyte correction low residual diet Imodium prn fu labs Discussed with Dr. Jordan. Thank you for this patient referral, we will follow. Cece Gerard N.P. Sep 12, 2017 16:10
[2017-09-12 20:54] VITALS: BP 116/76
[2017-09-13 00:34] VITALS: BP 111/76
[2017-09-13] MEDS: Morphine Sulfate 4mg/ml Inj IVP PRN ×4 (00:49→21:32)
[2017-09-13] MEDS: D5NS 1,000 ML IV SCH ×3 (02:49→18:32)
[2017-09-13 04:27] VITALS: BP 117/78
[2017-09-13 07:50] LABS: BASOPHILS % (AUTO) 0.8 % (0.0-2.0); EOSINOPHILS % (AUTO) 1.8 % (0.0-3.0); HEMATOCRIT 30.4 % (37.0-47.0); HEMOGLOBIN 9.7 G/DL (12.0-16.0); MEAN CORPUSCULAR VOLUME 84 FL (80-99); NEUTROPHILS % (AUTO) 72.5 % (45.0-75.0); PLATELET COUNT 529 K/UL (150-450); RED BLOOD COUNT 3.63 M/UL (4.20-5.40); RED CELL DISTRIBUTION WIDTH 16.1 % (11.6-14.8); WHITE BLOOD COUNT 6.2 K/UL (4.8-10.8)
[2017-09-13 08:00] VITALS: BP 102/70
[2017-09-13 08:13] LABS: ANION GAP 8 mmol/L (5-15); BLOOD UREA NITROGEN 4 mg/dL (7-18); CARBON DIOXIDE 29 MMOL/L (21-32); CHLORIDE 99 MMOL/L (98-107); CREATININE 0.6 MG/DL (0.55-1.30); POTASSIUM 3.2 MMOL/L (3.5-5.1); SODIUM 136 MMOL/L (136-145)
[2017-09-13] MEDS: cefTRIAXone 1 GM in D5W 55 ML IVPB SCH (08:18)
--- NOTE | 2017-09-13 09:42 | Consultation ---
DATE OF CONSULTATION: 09/11/2017 NOTE: POOR AUDIO HEMATOLOGY/ONCOLOGY CONSULTATION CONSULTING PHYSICIAN: Chris Spencer M.D. IDENTIFICATION DATA: The patient is a pleasant 32-year-old female with a history of stage IV cervical cancer. She has been status post chemotherapy with surgery, recently increasing abdominal pain, 8/10 on the scale with nausea and vomiting, presents to [facility], noted to be anemic, had been having bloody stools. Hematology Service was consulted as well as UNCLAIMED PROPERTY MANAGER . The patient continues to be anemic at this time, status post blood transfusion. PAST MEDICAL HISTORY: Cervical cancer one year ago, status post chemo. PAST SURGICAL HISTORY: Cervical surgery in 2017. MEDICATIONS: Morphine, Tylenol, MiraLAX, Restoril, Benadryl, and Mylanta. ALLERGIES: Denies. SOCIAL HISTORY: No alcohol, tobacco, or illicit drug use. FAMILY HISTORY: Noncontributory. REVIEW OF SYSTEMS: Otherwise negative except as noted in the HPI. PHYSICAL EXAMINATION: GENERAL: No acute distress. VITAL SIGNS: Reviewed. PULMONARY: Decreased breath sounds. CARDIOVASCULAR: Regular rate. No S3 and S4. ABDOMEN: Soft, nontender, and nondistended. Surgical scar noted on the abdomen. EXTREMITIES: No cyanosis, swelling, or edema. LABORATORY AND DIAGNOSTIC DATA: WBC 11.3, hemoglobin 10.5, hematocrit 35, and platelet count 180,000. INR of 1 and PTT of 37. BUN of 16 and creatinine is 0.7. labs reviewed. ASSESSMENT AND RECOMMENDATIONS: 1. the patient is status post transfusion again. 2. secondary to genitourinary bleed. Continue to closely monitor. Consider [employer] evaluation. Continue to follow up with Radiation Oncology. 3. Anemia, secondary to potential gastrointestinal bleed. 4. Leukocytosis, likely secondary to underlying infection, urinary tract infection and pyuria. 5. Asthma. 6. Malnutrition . 7. gastrointestinal bleed. I appreciate the consultation. Chris Spencer M.D. DR: RADHA JOB#: [id number] CC:
--- NOTE | 2017-09-13 09:42 | Consultation ---
DATE OF CONSULTATION: 09/12/2017 PAIN MANAGEMENT CONSULTATION CONSULTING PHYSICIAN: Grant Ochoa M.D. PHYSICIAN MASTER OCEAN: Virginie Rudd REFERRING PHYSICIAN: Dano Guillaume D.O. CHIEF COMPLAINT: Abdominal pain and pelvic pain. HISTORY OF PRESENT ILLNESS: This is a 32-year-old female, who is being seen on the telemetry floor of [facility] for initial comprehensive pain management consultation. The patient was admitted under the care of Dr. Guillaume complaining of severe abdominal pain, rating 8/10, has a history of cervical cancer with hysterectomy; however, over the past two weeks, the pain has been constant and acute, rating at 8/10. Describing as a twisting, stabbing pain. Increased with movement, and nothing has been helping to relieve her pain. Started on morphine 4 mg IV every four hours with minimal pain relief. We were consulted so that the patient would have adequate Pain control while here in the hospital. PAST MEDICAL HISTORY: Cervical cancer. PAST SURGICAL HISTORY: Hysterectomy. SOCIAL HISTORY: Denies smoking, drinking alcohol, or drug abuse. ALLERGIES: No known drug allergies. MEDICATIONS: Percocet. REVIEW OF SYSTEMS: Denies rash, fever, chills, sweating, dizziness, drowsiness, sore throat, or change in her weight. No shortness of breath, chest pain, palpitations, or cough. No nausea, vomiting, or diarrhea. She is complaining of pelvic and abdominal pain. PHYSICAL EXAMINATION: GENERAL: Alert, awake, and oriented x3. VITAL SIGNS: Blood pressure 113/83, heart rate is 96, oxygen saturation 99%, respiratory rate 20, and temperature is 98.2 degrees Fahrenheit. HEENT: PERRLA. NECK: Range of motion is full in all directions. No tenderness. No adenopathy. LUNGS: Decreased breath sounds bilaterally. ABDOMEN: Tenderness to palpation. BACK: Range of motion is full on flexion and extension. No tenderness to paraspinal muscles, trapezius, and rhomboid muscles. EXTREMITIES: Upper and lower extremity range of motion is full in all directions. Motor is intact. No cyanosis. No clubbing. No edema. Sensory is intact. Reflexes are unobtainable. No adenopathy. ASSESSMENT AND PLAN: This is a 32-year-old female with intractable abdominal pain and cervical cancer. The patient will be continued on morphine, and started on Percocet 10/325 one tablet every six hours as needed for severe breakthrough pain. The patient was discussed with Dr. Ochoa and Dr. Ochoa concurred. We will follow the patient. Thank you very much for the courtesy of this consultation. Grant Ochoa M.D. SLOANE Rudd DR: LOGAN JOB#: [id number] CC: MARILYN
--- NOTE | 2017-09-13 11:03 | Infectious Diseases Prog Note ---
Assessment/Plan Assessment/Plan A; Pyuria/ UTI Cervical cancer GI bleeding Anemia P; Continue Rocephin x 1 day Subjective ROS Limited/Unobtainable: No Constitutional: Reports: anorexia Respiratory: Reports: no symptoms Cardiovascular: Reports: no symptoms Gastrointestinal/Abdominal: Reports: other - abdominal pain with solid foods Allergies: Coded Allergies: No Known Allergies (Unverified , 09/10/17) Objective Vital Signs Last 24 Hour Vital Signs Date Time Temp Pulse Resp B/P (MAP) Pulse Ox O2 Delivery O2 Flow Rate FiO2 09/13/17 04:27 98.1 92 18 117/78 97 Room Air 09/13/17 04:00 87 09/13/17 01:19 98.4 09/13/17 01:19 98.4 09/13/17 00:34 98.4 95 18 111/76 100 Room Air 09/13/17 00:00 96 09/12/17 20:54 98.2 99 18 116/76 97 Room Air 09/12/17 20:00 103 09/12/17 16:00 97.7 88 18 122/79 99 Room Air 09/12/17 16:00 104 09/12/17 12:00 98.1 90 20 112/76 98 Room Air 09/12/17 12:00 99 Height (Feet): 5 Height (Inches): 2.00 Weight (Pounds): 110 General Appearance: no acute distress HEENT: mucous membranes moist Respiratory/Chest: lungs clear Cardiovascular: normal rate Abdomen: soft, non tender Extremities: no edema Neurologic/Psychiatric: alert, oriented x 3, responsive Microbiology Date/Time Source Procedure Growth Status 09/10/17 22:35 Blood Blood Culture - Preliminary NO GROWTH AFTER 48 HOURS Resulted 09/10/17 22:30 Blood Blood Culture - Preliminary NO GROWTH AFTER 48 HOURS Resulted 09/12/17 20:00 Stool Stool Culture Pending Resulted 09/12/17 20:00 Stool Clostridium difficile Toxin Assay - Final Resulted 09/11/17 00:35 Urine,Clean Catch Urine Culture - Final Mixed Gram Positive Organism Complete Laboratory Tests Test 09/13/17 06:20 White Blood Count 6.2 K/UL (4.8-10.8) Red Blood Count 3.63 M/UL (4.20-5.40) L Hemoglobin 9.7 G/DL (12.0-16.0) L Hematocrit 30.4 % (37.0-47.0) L Mean Corpuscular Volume 84 FL (80-99) Mean Corpuscular Hemoglobin 26.7 PG (27.0-31.0) L Mean Corpuscular Hemoglobin Concent 31.8 G/DL (32.0-36.0) L Red Cell Distribution Width 16.1 % (11.6-14.8) H Platelet Count 529 K/UL (150-450) H Mean Platelet Volume 4.9 FL (6.5-10.1) L Neutrophils (%) (Auto) 72.5 % (45.0-75.0) Lymphocytes (%) (Auto) 15.0 % (20.0-45.0) L Monocytes (%) (Auto) 10.0 % (1.0-10.0) Eosinophils (%) (Auto) 1.8 % (0.0-3.0) Basophils (%) (Auto) 0.8 % (0.0-2.0) Sodium Level 136 MMOL/L (136-145) Potassium Level 3.2 MMOL/L (3.5-5.1) L Chloride Level 99 MMOL/L (98-107) Carbon Dioxide Level 29 MMOL/L (21-32) Anion Gap 8 mmol/L (5-15) Blood Urea Nitrogen 4 mg/dL (7-18) L Creatinine 0.6 MG/DL (0.55-1.30) Estimat Glomerular Filtration Rate > 60 mL/min (>60) Glucose Level 101 MG/DL (74-106) Calcium Level 9.0 MG/DL (8.5-10.1) Current Medications Medications (Trade) Dose Ordered Sig/Francoise Route PRN Reason Start Time Stop Time Status Last Admin Dose Admin Acetaminophen (Tylenol) 650 mg Q4H PRN ORAL fever 09/11/17 06:15 10/11/17 06:14 Al Hydroxide/Mg Hydroxide (Mylanta II) 30 ml Q6H PRN ORAL dyspepsia 09/11/17 06:15 10/11/17 06:14 Ceftriaxone Sodium 1 gm/ Dextrose 55 ml @ 110 mls/hr Q24H IVPB 09/12/17 08:00 09/19/17 07:59 09/13/17 08:18 Dextrose (Dextrose 50%) STAT PRN IV Hypoglycemia 09/11/17 06:15 10/11/17 06:14 Dextrose/Sodium Chloride 1,000 ml @ 100 mls/hr Q10H IV 09/11/17 06:14 10/11/17 06:13 09/13/17 02:49 Diphenhydramine HCl (Benadryl) 25 mg Q6H PRN ORAL Itching/Pruritis 09/11/17 06:15 10/11/17 06:14 Morphine Sulfate (Morphine Sulfate) 4 mg Q4H PRN IVP Pain 7-10 09/11/17 10:30 09/18/17 10:29 09/13/17 05:59 Nitroglycerin (Ntg) 0.4 mg Q5M X 3 DOSES PRN SL Prn Chest Pain 09/11/17 06:15 10/11/17 06:14 Ondansetron HCl (Zofran) 4 mg Q6H PRN IVP Nausea & Vomiting 09/11/17 06:15 10/11/17 06:14 Oxycodone/ Acetaminophen (Percocet 10/325) 1 tab Q6H PRN ORAL Moderate Breakthru Pain (5-7) 09/12/17 10:00 09/19/17 09:59 09/13/17 08:18 Polyethylene Glycol (Miralax) 17 gm HSPRN PRN ORAL Constipation 09/11/17 06:15 10/11/17 06:14 Temazepam (Restoril) 15 mg HSPRN PRN ORAL Insomnia 09/11/17 06:15 09/18/17 06:14 CHERYLE WOLFE Sep 13, 2017 11:03
--- NOTE | 2017-09-13 11:53 | General Progress Note ---
Assessment/Plan Problem List: (1) UTI (urinary tract infection) ICD Codes: N39.0 - Urinary tract infection, site not specified SNOMED: 17230856 (2) Gastrointestinal hemorrhage ICD Codes: K92.2 - Gastrointestinal hemorrhage, unspecified SNOMED: 21986844 (3) Cervical cancer ICD Codes: C53.9 - Malignant neoplasm of cervix uteri, unspecified SNOMED: 882518441 (4) Severe anemia ICD Codes: D64.9 - Anemia, unspecified SNOMED: 989866158 Status: stable, progressing, tolerating diet Assessment/Plan ot pt diet abx pain control gi f/u cbc bmp am dc plan Subjective Constitutional: Reports: weakness Allergies: Coded Allergies: No Known Allergies (Unverified , 09/10/17) All Systems: reviewed and negative except above Subjective c/o gen pain Objective Last 24 Hour Vital Signs Date Time Temp Pulse Resp B/P (MAP) Pulse Ox O2 Delivery O2 Flow Rate FiO2 09/13/17 04:27 98.1 92 18 117/78 97 Room Air 09/13/17 04:00 87 09/13/17 01:19 98.4 09/13/17 01:19 98.4 09/13/17 00:34 98.4 95 18 111/76 100 Room Air 09/13/17 00:00 96 09/12/17 20:54 98.2 99 18 116/76 97 Room Air 09/12/17 20:00 103 09/12/17 16:00 97.7 88 18 122/79 99 Room Air 09/12/17 16:00 104 09/12/17 12:00 98.1 90 20 112/76 98 Room Air 09/12/17 12:00 99 Intake and Output 09/12/17 09/13/17 19:00 07:00 Intake Total 960 ml Output Total 400 ml Balance 960 ml -400 ml Intake Oral 960 ml Output Urine Total 400 ml # Voids 2 # Bowel Movements 1 Laboratory Tests 09/13/17 06:20: White Blood Count 6.2, Red Blood Count 3.63L, Hemoglobin 9.7L, Hematocrit 30.4L , Mean Corpuscular Volume 84, Mean Corpuscular Hemoglobin 26.7L, Mean Corpuscular Hemoglobin Concent 31.8L, Red Cell Distribution Width 16.1H, Platelet Count 529H, Mean Platelet Volume 4.9L, Neutrophils (%) (Auto) 72.5, Lymphocytes (%) (Auto) 15.0L, Monocytes (%) (Auto) 10.0, Eosinophils (%) (Auto) 1.8, Basophils (%) (Auto) 0.8, Sodium Level 136, Potassium Level 3.2L, Chloride Level 99, Carbon Dioxide Level 29, Anion Gap 8, Blood Urea Nitrogen 4L, Creatinine 0.6, Estimat Glomerular Filtration Rate > 60, Glucose Level 101, Calcium Level 9.0 Height (Feet): 5 Height (Inches): 2.00 Weight (Pounds): 110 General Appearance: lethargic EENT: normal ENT inspection Neck: normal alignment Cardiovascular: normal peripheral pulses, normal rate, regular rhythm Respiratory/Chest: chest wall non-tender, lungs clear, normal breath sounds Abdomen: normal bowel sounds, non tender, soft Extremities: normal inspection Edema: no edema noted Arm (L), no edema noted Arm (R), no edema noted Leg (L), no edema noted Leg (R), no edema noted Pedal (L), no edema noted Pedal (R), no edema noted Generalized Neurologic: responsive, motor weakness Skin: normal pigmentation, warm/dry SONIDO FELICIANO Sep 13, 2017 11:53
[2017-09-13 12:00] VITALS: BP 110/74
--- NOTE | 2017-09-13 13:22 | GI Progress Note ---
Assessment/Plan Problems: (1) Severe anemia ICD Codes: D64.9 - Anemia, unspecified SNOMED: 611930789 (2) Gastrointestinal hemorrhage ICD Codes: K92.2 - Gastrointestinal hemorrhage, unspecified SNOMED: 34084778 (3) Cervical cancer ICD Codes: C53.9 - Malignant neoplasm of cervix uteri, unspecified SNOMED: 422830627 Status: unchanged Status Narrative Discussed with Dr. Jordan. Assessment/Plan ?acute chemotherapy-related diarrhea cdiff negative fu stool studies OB stool r/o GI bleed vs cervical monitor H&H, prn transfusions ppi electrolyte correction low residual diet changed to lomotil PRN fu labs Subjective Gastrointestinal/Abdominal: Reports: abdominal pain, diarrhea - has improved Objective Last 24 Hour Vital Signs Date Time Temp Pulse Resp B/P (MAP) Pulse Ox O2 Delivery O2 Flow Rate FiO2 09/13/17 04:27 98.1 92 18 117/78 97 Room Air 09/13/17 04:00 87 09/13/17 01:19 98.4 09/13/17 01:19 98.4 09/13/17 00:34 98.4 95 18 111/76 100 Room Air 09/13/17 00:00 96 09/12/17 20:54 98.2 99 18 116/76 97 Room Air 09/12/17 20:00 103 09/12/17 16:00 97.7 88 18 122/79 99 Room Air 09/12/17 16:00 104 Intake and Output 09/12/17 09/13/17 19:00 07:00 Intake Total 960 ml Output Total 400 ml Balance 960 ml -400 ml Intake Oral 960 ml Output Urine Total 400 ml # Voids 2 # Bowel Movements 1 Laboratory Tests Test 09/13/17 06:20 White Blood Count 6.2 K/UL (4.8-10.8) Red Blood Count 3.63 M/UL (4.20-5.40) L Hemoglobin 9.7 G/DL (12.0-16.0) L Hematocrit 30.4 % (37.0-47.0) L Mean Corpuscular Volume 84 FL (80-99) Mean Corpuscular Hemoglobin 26.7 PG (27.0-31.0) L Mean Corpuscular Hemoglobin Concent 31.8 G/DL (32.0-36.0) L Red Cell Distribution Width 16.1 % (11.6-14.8) H Platelet Count 529 K/UL (150-450) H Mean Platelet Volume 4.9 FL (6.5-10.1) L Neutrophils (%) (Auto) 72.5 % (45.0-75.0) Lymphocytes (%) (Auto) 15.0 % (20.0-45.0) L Monocytes (%) (Auto) 10.0 % (1.0-10.0) Eosinophils (%) (Auto) 1.8 % (0.0-3.0) Basophils (%) (Auto) 0.8 % (0.0-2.0) Sodium Level 136 MMOL/L (136-145) Potassium Level 3.2 MMOL/L (3.5-5.1) L Chloride Level 99 MMOL/L (98-107) Carbon Dioxide Level 29 MMOL/L (21-32) Anion Gap 8 mmol/L (5-15) Blood Urea Nitrogen 4 mg/dL (7-18) L Creatinine 0.6 MG/DL (0.55-1.30) Estimat Glomerular Filtration Rate > 60 mL/min (>60) Glucose Level 101 MG/DL (74-106) Calcium Level 9.0 MG/DL (8.5-10.1) Microbiology Date/Time Source Procedure Growth Status 09/12/17 20:00 Stool Stool Culture Pending Resulted 09/12/17 20:00 Stool Clostridium difficile Toxin Assay - Final Resulted Height (Feet): 5 Height (Inches): 2.00 Weight (Pounds): 110 General Appearance: WD/WN, no apparent distress, alert, thin Cardiovascular: normal rate Respiratory/Chest: normal breath sounds, no respiratory distress Abdominal Exam: normal bowel sounds, non tender, soft Extremities: normal range of motion, non-tender Cece Gerard N.P. Sep 13, 2017 13:22
[2017-09-13] MEDS ORDERED: Lomotil 2.5mg tab ORAL PRN ×2 (13:30→19:00)
--- NOTE | 2017-09-13 14:29 | Pulmonology Progress Note ---
Assessment/Plan Problems: (1) Severe anemia (2) Cervical cancer (3) UTI (urinary tract infection) Assessment/Plan feeling better check cultures symptomatic treatment med/surg Subjective ROS Limited/Unobtainable: No Constitutional: Reports: no symptoms HEENT: Repors: no symptoms Respiratory: Reports: no symptoms Cardiovascular: Reports: no symptoms Allergies: Coded Allergies: No Known Allergies (Unverified , 09/10/17) Objective Last 24 Hour Vital Signs Date Time Temp Pulse Resp B/P (MAP) Pulse Ox O2 Delivery O2 Flow Rate FiO2 09/13/17 04:27 98.1 92 18 117/78 97 Room Air 09/13/17 04:00 87 09/13/17 01:19 98.4 09/13/17 01:19 98.4 09/13/17 00:34 98.4 95 18 111/76 100 Room Air 09/13/17 00:00 96 09/12/17 20:54 98.2 99 18 116/76 97 Room Air 09/12/17 20:00 103 09/12/17 16:00 97.7 88 18 122/79 99 Room Air 09/12/17 16:00 104 Intake and Output 09/12/17 09/13/17 19:00 07:00 Intake Total 960 ml Output Total 400 ml Balance 960 ml -400 ml Intake Oral 960 ml Output Urine Total 400 ml # Voids 2 # Bowel Movements 1 Objective . General Appearance: WD/WN HEENT: normocephalic, atraumatic, PERRL Respiratory/Chest: lungs clear, normal breath sounds Breasts: no masses Cardiovascular: normal rate Abdomen: normal bowel sounds, soft, non tender Microbiology Date/Time Source Procedure Growth Status 09/10/17 22:35 Blood Blood Culture - Preliminary NO GROWTH AFTER 48 HOURS Resulted 09/10/17 22:30 Blood Blood Culture - Preliminary NO GROWTH AFTER 48 HOURS Resulted 09/12/17 20:00 Stool Stool Culture Pending Resulted 09/12/17 20:00 Stool Clostridium difficile Toxin Assay - Final Resulted 09/11/17 00:35 Urine,Clean Catch Urine Culture - Final Mixed Gram Positive Organism Complete Laboratory Tests 09/13/17 06:20: White Blood Count 6.2, Red Blood Count 3.63L, Hemoglobin 9.7L, Hematocrit 30.4L , Mean Corpuscular Volume 84, Mean Corpuscular Hemoglobin 26.7L, Mean Corpuscular Hemoglobin Concent 31.8L, Red Cell Distribution Width 16.1H, Platelet Count 529H, Mean Platelet Volume 4.9L, Neutrophils (%) (Auto) 72.5, Lymphocytes (%) (Auto) 15.0L, Monocytes (%) (Auto) 10.0, Eosinophils (%) (Auto) 1.8, Basophils (%) (Auto) 0.8, Sodium Level 136, Potassium Level 3.2L, Chloride Level 99, Carbon Dioxide Level 29, Anion Gap 8, Blood Urea Nitrogen 4L, Creatinine 0.6, Estimat Glomerular Filtration Rate > 60, Glucose Level 101, Calcium Level 9.0 Current Medications Medications (Trade) Dose Ordered Sig/Francoise Route PRN Reason Start Time Stop Time Status Last Admin Dose Admin Acetaminophen (Tylenol) 650 mg Q4H PRN ORAL fever 09/11/17 06:15 10/11/17 06:14 Al Hydroxide/Mg Hydroxide (Mylanta II) 30 ml Q6H PRN ORAL dyspepsia 09/11/17 06:15 10/11/17 06:14 Ceftriaxone Sodium 1 gm/ Dextrose 55 ml @ 110 mls/hr Q24H IVPB 09/12/17 08:00 09/14/17 23:59 09/13/17 08:18 Dextrose (Dextrose 50%) STAT PRN IV Hypoglycemia 09/11/17 06:15 10/11/17 06:14 Dextrose/Sodium Chloride 1,000 ml @ 100 mls/hr Q10H IV 09/11/17 06:14 10/11/17 06:13 09/13/17 02:49 Diphenhydramine HCl (Benadryl) 25 mg Q6H PRN ORAL Itching/Pruritis 09/11/17 06:15 10/11/17 06:14 Diphenoxylate HCl/ Atropine (Lomotil) 2.5 mg Q4H PRN ORAL Diarrhea 09/13/17 13:30 10/13/17 13:29 Morphine Sulfate (Morphine Sulfate) 4 mg Q4H PRN IVP Pain 7-10 09/11/17 10:30 09/18/17 10:29 09/13/17 05:59 Nitroglycerin (Ntg) 0.4 mg Q5M X 3 DOSES PRN SL Prn Chest Pain 09/11/17 06:15 10/11/17 06:14 Ondansetron HCl (Zofran) 4 mg Q6H PRN IVP Nausea & Vomiting 09/11/17 06:15 10/11/17 06:14 Oxycodone/ Acetaminophen (Percocet 10/325) 1 tab Q6H PRN ORAL Moderate Breakthru Pain (5-7) 09/12/17 10:00 09/19/17 09:59 09/13/17 13:54 Polyethylene Glycol (Miralax) 17 gm HSPRN PRN ORAL Constipation 09/11/17 06:15 10/11/17 06:14 Temazepam (Restoril) 15 mg HSPRN PRN ORAL Insomnia 09/11/17 06:15 09/18/17 06:14 JL CHAVEZ Sep 13, 2017 14:28
--- NOTE | 2017-09-13 15:31 | General Progress Note ---
Assessment/Plan Assessment/Plan ASSESSMENT AND RECOMMENDATIONS: # Cervical cancer with surgery and xrt upfront and now on chemotherapy, has not had any over the past month -- Continue to follow up with Radiation Oncology. --> f/u with outpatient oncology --> consider [facility], [facility] genomic evaluation as prognosis for stage iv generally poor for cervical cancer patients # Anemia, secondary to potential gastrointestinal bleed. # Leukocytosis, likely secondary to underlying infection, urinary tract infection and pyuria. --> better # Asthma. # Malnutrition, protien caloric Subjective Constitutional: Denies: no symptoms, chills, diaphoresis, fever, malaise, weakness, other HEENT: Denies: no symptoms, eye pain, blurred vision, tearing, double vision, ear pain, ear discharge, nose pain, nose congestion, throat pain, throat swelling, mouth pain, mouth swelling, other Cardiovascular: Denies: no symptoms, chest pain, edema, irregular heart rate, lightheadedness, palpitations, syncope, other Respiratory: Denies: no symptoms, cough, orthopnea, shortness of breath, SOB with excertion, SOB at rest, sputum, stridor, wheezing, other Genitourinary: Denies: no symptoms, burning, discharge, frequency, flank pain, hematuria, incontinence, pain, urgency, other Neurologic/Psychiatric: Denies: no symptoms, anxiety, depressed, emotional problems, headache, numbness, paresthesia, pre-existing deficit, seizure, tingling, tremors, weakness, other Endocrine: Denies: no symptoms, excessive sweating, flushing, intolerance to cold, intolerance to heat, increased hunger, increased thirst, increased urine, unexplained weight gain, unexplained weight loss, other Hematologic/Lymphatic: Denies: no symptoms, anemia, easy bleeding, easy bruising, other Allergies: Coded Allergies: No Known Allergies (Unverified , 09/10/17) Subjective feeling better, no events otherwise, less nausea Objective Last 24 Hour Vital Signs Date Time Temp Pulse Resp B/P (MAP) Pulse Ox O2 Delivery O2 Flow Rate FiO2 09/13/17 04:27 98.1 92 18 117/78 97 Room Air 09/13/17 04:00 87 09/13/17 01:19 98.4 09/13/17 01:19 98.4 09/13/17 00:34 98.4 95 18 111/76 100 Room Air 09/13/17 00:00 96 09/12/17 20:54 98.2 99 18 116/76 97 Room Air 09/12/17 20:00 103 09/12/17 16:00 97.7 88 18 122/79 99 Room Air 09/12/17 16:00 104 Intake and Output 09/12/17 09/13/17 19:00 07:00 Intake Total 960 ml Output Total 400 ml Balance 960 ml -400 ml Intake Oral 960 ml Output Urine Total 400 ml # Voids 2 # Bowel Movements 1 Laboratory Tests 09/13/17 06:20: White Blood Count 6.2, Red Blood Count 3.63L, Hemoglobin 9.7L, Hematocrit 30.4L , Mean Corpuscular Volume 84, Mean Corpuscular Hemoglobin 26.7L, Mean Corpuscular Hemoglobin Concent 31.8L, Red Cell Distribution Width 16.1H, Platelet Count 529H, Mean Platelet Volume 4.9L, Neutrophils (%) (Auto) 72.5, Lymphocytes (%) (Auto) 15.0L, Monocytes (%) (Auto) 10.0, Eosinophils (%) (Auto) 1.8, Basophils (%) (Auto) 0.8, Sodium Level 136, Potassium Level 3.2L, Chloride Level 99, Carbon Dioxide Level 29, Anion Gap 8, Blood Urea Nitrogen 4L, Creatinine 0.6, Estimat Glomerular Filtration Rate > 60, Glucose Level 101, Calcium Level 9.0 Height (Feet): 5 Height (Inches): 2.00 Weight (Pounds): 110 General Appearance: no apparent distress EENT: normal ENT inspection Cardiovascular: regular rhythm Respiratory/Chest: normal breath sounds Abdomen: soft Extremities: non-tender Edema: 1+ Leg (L), 1+ Leg (R) Edema: mild edema Neurologic: alert Chris Spencer Sep 13, 2017 15:31
[2017-09-13 16:00] VITALS: BP 102/80
[2017-09-13] MEDS ORDERED: Nitroglycerin Subl 0.4mg tab SL PRN (18:15)
[2017-09-13] MEDS ORDERED: Mylanta II UD 30ml ORAL PRN (18:15)
[2017-09-13] MEDS ORDERED: Miralax 17gm pkt ORAL PRN (19:00)
[2017-09-13 20:00] VITALS: BP 113/75
--- NOTE | 2017-09-13 23:11 | General Progress Note ---
Assessment/Plan Status: unchanged Assessment/Plan ASSESSMENT AND RECOMMENDATIONS: # Cervical cancer with surgery and xrt upfront and now on chemotherapy, has not had any over the past month -- Continue to follow up with Radiation Oncology. --> f/u with outpatient oncology --> consider [facility] genomic evaluation as prognosis for stage iv generally poor for cervical cancer patients # Anemia, secondary to potential gastrointestinal bleed. --> Hemoglobin stable. does not need blood transfusion currently # Leukocytosis, likely secondary to underlying infection, urinary tract infection and pyuria. --> Improved. # Asthma. # Malnutrition, protien caloric Subjective Date patient seen: Sep 13, 2017 Allergies: Coded Allergies: No Known Allergies (Unverified , 09/10/17) Subjective Hemoglobin stable. Leukocytosis improved. No major events. Objective Last 24 Hour Vital Signs Date Time Temp Pulse Resp B/P (MAP) Pulse Ox O2 Delivery O2 Flow Rate FiO2 09/13/17 22:02 97.7 09/13/17 20:55 97.7 09/13/17 20:00 97.7 94 18 113/75 97 09/13/17 16:00 97.5 105 18 102/80 98 Room Air 09/13/17 12:00 97.9 92 18 110/74 97 Room Air 09/13/17 12:00 88 09/13/17 08:00 98.2 90 18 102/70 95 Room Air 09/13/17 04:27 98.1 92 18 117/78 97 Room Air 09/13/17 04:00 87 09/13/17 01:19 98.4 09/13/17 01:19 98.4 09/13/17 00:34 98.4 95 18 111/76 100 Room Air 09/13/17 00:00 96 Intake and Output 09/12/17 09/13/17 19:00 07:00 Intake Total 960 ml Output Total 400 ml Balance 960 ml -400 ml Intake Oral 960 ml Output Urine Total 400 ml # Voids 2 # Bowel Movements 1 Laboratory Tests 09/13/17 06:20: White Blood Count 6.2, Red Blood Count 3.63L, Hemoglobin 9.7L, Hematocrit 30.4L , Mean Corpuscular Volume 84, Mean Corpuscular Hemoglobin 26.7L, Mean Corpuscular Hemoglobin Concent 31.8L, Red Cell Distribution Width 16.1H, Platelet Count 529H, Mean Platelet Volume 4.9L, Neutrophils (%) (Auto) 72.5, Lymphocytes (%) (Auto) 15.0L, Monocytes (%) (Auto) 10.0, Eosinophils (%) (Auto) 1.8, Basophils (%) (Auto) 0.8, Sodium Level 136, Potassium Level 3.2L, Chloride Level 99, Carbon Dioxide Level 29, Anion Gap 8, Blood Urea Nitrogen 4L, Creatinine 0.6, Estimat Glomerular Filtration Rate > 60, Glucose Level 101, Calcium Level 9.0 Height (Feet): 5 Height (Inches): 2.00 Weight (Pounds): 110 General Appearance: no apparent distress EENT: normal ENT inspection Neck: supple Cardiovascular: normal rate Respiratory/Chest: lungs clear, decreased breath sounds Edema: 1+ Leg (L), 1+ Leg (R) Edema: mild edema Chris Spencer Sep 13, 2017 23:11
[2017-09-14] VITALS: BP 108/73
[2017-09-14] MEDS: Morphine Sulfate 4mg/ml Inj IVP PRN ×4 (01:30→13:36)
[2017-09-14 04:00] VITALS: BP 106/71
[2017-09-14] MEDS: D5NS 1,000 ML IV SCH ×2 (04:29→15:00)
[2017-09-14 07:41] LABS: BASOPHILS % (AUTO) 0.6 % (0.0-2.0); EOSINOPHILS % (AUTO) 2.1 % (0.0-3.0); HEMATOCRIT 27.6 % (37.0-47.0); HEMOGLOBIN 8.8 G/DL (12.0-16.0); LYMPHOCYTES % (AUTO) 14.5 % (20.0-45.0); MEAN CORPUSCULAR VOLUME 85 FL (80-99); MONOCYTES % (AUTO) 5.5 % (1.0-10.0); NEUTROPHILS % (AUTO) 77.4 % (45.0-75.0); PLATELET COUNT 534 K/UL (150-450); RED BLOOD COUNT 3.26 M/UL (4.20-5.40); WHITE BLOOD COUNT 7.3 K/UL (4.8-10.8)
[2017-09-14 07:51] LABS: ANION GAP 7 mmol/L (5-15); BLOOD UREA NITROGEN 4 mg/dL (7-18); CALCIUM 8.8 MG/DL (8.5-10.1); CARBON DIOXIDE 30 MMOL/L (21-32); CHLORIDE 99 MMOL/L (98-107); CREATININE 0.6 MG/DL (0.55-1.30); POTASSIUM 3.3 MMOL/L (3.5-5.1); SODIUM 136 MMOL/L (136-145)
[2017-09-14 08:00] VITALS: BP 115/71
[2017-09-14] MEDS ORDERED: cefTRIAXone 1 GM in D5W 55 ML IVPB SCH (08:00)
[2017-09-14 12:00] VITALS: BP 110/72
--- NOTE | 2017-09-14 12:40 | Infectious Diseases Prog Note ---
Assessment/Plan Assessment/Plan A; Pyuria/ UTI Cervical cancer GI bleeding Anemia P; discontinue Rocephin Subjective ROS Limited/Unobtainable: No Constitutional: Reports: anorexia Respiratory: Reports: no symptoms Cardiovascular: Reports: no symptoms Gastrointestinal/Abdominal: Reports: no symptoms Genitourinary: Reports: no symptoms Musculoskeletal: Reports: pain, other - abdominal, pelvic & back pain Allergies: Coded Allergies: No Known Allergies (Unverified , 09/10/17) Objective Vital Signs Last 24 Hour Vital Signs Date Time Temp Pulse Resp B/P (MAP) Pulse Ox O2 Delivery O2 Flow Rate FiO2 09/14/17 12:00 97.7 96 18 110/72 99 09/14/17 08:00 97.7 94 20 115/71 100 09/14/17 06:05 97.9 09/14/17 04:06 97.9 09/14/17 04:00 97.8 90 18 106/71 95 09/14/17 00:00 96 Room Air 09/14/17 00:00 97.9 92 18 108/73 96 09/13/17 20:00 97.7 94 18 113/75 97 09/13/17 20:00 97 Room Air 09/13/17 16:00 97.5 105 18 102/80 98 Room Air Height (Feet): 5 Height (Inches): 2.00 Weight (Pounds): 110 Microbiology Date/Time Source Procedure Growth Status 09/12/17 20:00 Stool Stool Culture - Preliminary Resulted 09/12/17 20:00 Stool Clostridium difficile Toxin Assay - Final Resulted Laboratory Tests Test 09/14/17 05:30 White Blood Count 7.3 K/UL (4.8-10.8) Red Blood Count 3.26 M/UL (4.20-5.40) L Hemoglobin 8.8 G/DL (12.0-16.0) L Hematocrit 27.6 % (37.0-47.0) L Mean Corpuscular Volume 85 FL (80-99) Mean Corpuscular Hemoglobin 27.0 PG (27.0-31.0) Mean Corpuscular Hemoglobin Concent 31.9 G/DL (32.0-36.0) L Red Cell Distribution Width 16.0 % (11.6-14.8) H Platelet Count 534 K/UL (150-450) H Mean Platelet Volume 4.9 FL (6.5-10.1) L Neutrophils (%) (Auto) 77.4 % (45.0-75.0) H Lymphocytes (%) (Auto) 14.5 % (20.0-45.0) L Monocytes (%) (Auto) 5.5 % (1.0-10.0) Eosinophils (%) (Auto) 2.1 % (0.0-3.0) Basophils (%) (Auto) 0.6 % (0.0-2.0) Sodium Level 136 MMOL/L (136-145) Potassium Level 3.3 MMOL/L (3.5-5.1) L Chloride Level 99 MMOL/L (98-107) Carbon Dioxide Level 30 MMOL/L (21-32) Anion Gap 7 mmol/L (5-15) Blood Urea Nitrogen 4 mg/dL (7-18) L Creatinine 0.6 MG/DL (0.55-1.30) Estimat Glomerular Filtration Rate > 60 mL/min (>60) Glucose Level 98 MG/DL (74-106) Calcium Level 8.8 MG/DL (8.5-10.1) Current Medications Medications (Trade) Dose Ordered Sig/Francoise Route PRN Reason Start Time Stop Time Status Last Admin Dose Admin Acetaminophen (Tylenol) 650 mg Q4H PRN ORAL fever 09/13/17 18:15 10/11/17 06:14 Al Hydroxide/Mg Hydroxide (Mylanta II) 30 ml Q6H PRN ORAL dyspepsia 09/13/17 18:15 10/11/17 06:14 Ceftriaxone Sodium 1 gm/ Dextrose 55 ml @ 110 mls/hr Q24H IVPB 09/14/17 08:00 09/14/17 23:59 09/14/17 08:16 Dextrose (Dextrose 50%) STAT PRN IV Hypoglycemia 09/13/17 18:00 10/13/17 17:59 Dextrose/Sodium Chloride 1,000 ml @ 100 mls/hr Q10H IV 09/13/17 19:00 10/11/17 18:59 09/14/17 04:29 Diphenhydramine HCl (Benadryl) 25 mg Q6H PRN ORAL Itching/Pruritis 09/13/17 18:15 10/11/17 06:14 Diphenoxylate HCl/ Atropine (Lomotil) 2.5 mg Q4H PRN ORAL Diarrhea 09/13/17 19:00 10/13/17 18:59 Morphine Sulfate (Morphine Sulfate) 4 mg Q4H PRN IVP Pain 7-10 09/13/17 18:30 09/18/17 10:29 09/14/17 09:30 Nitroglycerin (Ntg) 0.4 mg Q5M X 3 DOSES PRN SL Prn Chest Pain 09/13/17 18:15 10/11/17 06:14 Ondansetron HCl (Zofran) 4 mg Q6H PRN IVP Nausea & Vomiting 09/13/17 18:15 10/11/17 06:14 Oxycodone/ Acetaminophen (Percocet 10/325) 1 tab Q6H PRN ORAL Moderate Breakthru Pain (5-7) 09/13/17 19:00 09/19/17 18:59 09/14/17 11:23 Polyethylene Glycol (Miralax) 17 gm HSPRN PRN ORAL Constipation 09/13/17 19:00 10/13/17 18:59 Temazepam (Restoril) 15 mg HSPRN PRN ORAL Insomnia 09/13/17 19:00 09/20/17 18:59 CHERYLE WOLFE Sep 14, 2017 12:40
--- NOTE | 2017-09-14 13:42 | General Progress Note ---
Assessment/Plan Problem List: (1) UTI (urinary tract infection) ICD Codes: N39.0 - Urinary tract infection, site not specified SNOMED: 05778239 (2) Gastrointestinal hemorrhage ICD Codes: K92.2 - Gastrointestinal hemorrhage, unspecified SNOMED: 19910911 (3) Cervical cancer ICD Codes: C53.9 - Malignant neoplasm of cervix uteri, unspecified SNOMED: 347664186 (4) Severe anemia ICD Codes: D64.9 - Anemia, unspecified SNOMED: 839528400 Status: stable, progressing, tolerating diet Assessment/Plan ot pt diet abx pain control gi f/u dc plan Subjective Constitutional: Reports: weakness Allergies: Coded Allergies: No Known Allergies (Unverified , 09/10/17) All Systems: reviewed and negative except above Subjective c/o gen pain eating some Objective Last 24 Hour Vital Signs Date Time Temp Pulse Resp B/P (MAP) Pulse Ox O2 Delivery O2 Flow Rate FiO2 09/14/17 12:00 97.7 96 18 110/72 99 09/14/17 08:00 97.7 94 20 115/71 100 09/14/17 06:05 97.9 09/14/17 04:06 97.9 09/14/17 04:00 97.8 90 18 106/71 95 09/14/17 00:00 96 Room Air 09/14/17 00:00 97.9 92 18 108/73 96 09/13/17 20:00 97.7 94 18 113/75 97 09/13/17 20:00 97 Room Air 09/13/17 16:00 97.5 105 18 102/80 98 Room Air Intake and Output 09/13/17 09/14/17 19:00 07:00 Intake Total 360 ml 1440 ml Balance 360 ml 1440 ml Intake Oral 360 ml 240 ml IV Total 1200 ml # Voids 3 2 # Bowel Movements 1 1 Laboratory Tests 09/14/17 05:30: White Blood Count 7.3, Red Blood Count 3.26L, Hemoglobin 8.8L, Hematocrit 27.6L , Mean Corpuscular Volume 85, Mean Corpuscular Hemoglobin 27.0, Mean Corpuscular Hemoglobin Concent 31.9L, Red Cell Distribution Width 16.0H, Platelet Count 534H, Mean Platelet Volume 4.9L, Neutrophils (%) (Auto) 77.4H, Lymphocytes (%) (Auto) 14.5L, Monocytes (%) (Auto) 5.5, Eosinophils (%) (Auto) 2.1, Basophils (%) (Auto) 0.6, Sodium Level 136, Potassium Level 3.3L, Chloride Level 99, Carbon Dioxide Level 30, Anion Gap 7, Blood Urea Nitrogen 4L, Creatinine 0.6, Estimat Glomerular Filtration Rate > 60, Glucose Level 98, Calcium Level 8.8 Height (Feet): 5 Height (Inches): 2.00 Weight (Pounds): 110 General Appearance: alert EENT: normal ENT inspection Neck: normal alignment Cardiovascular: normal peripheral pulses, normal rate, regular rhythm Respiratory/Chest: chest wall non-tender, lungs clear, normal breath sounds Abdomen: normal bowel sounds, non tender, soft Extremities: normal inspection Edema: no edema noted Arm (L), no edema noted Arm (R), no edema noted Leg (L), no edema noted Leg (R), no edema noted Pedal (L), no edema noted Pedal (R), no edema noted Generalized Neurologic: responsive, motor weakness Skin: normal pigmentation, warm/dry SONIDO FELICIANO Sep 14, 2017 13:41
[2017-09-14 16:00] VITALS: BP 112/74
--- NOTE | 2017-09-14 16:44 | GI Progress Note ---
Assessment/Plan Problems: (1) Severe anemia ICD Codes: D64.9 - Anemia, unspecified SNOMED: 453695287 (2) Gastrointestinal hemorrhage ICD Codes: K92.2 - Gastrointestinal hemorrhage, unspecified SNOMED: 32807847 (3) Cervical cancer ICD Codes: C53.9 - Malignant neoplasm of cervix uteri, unspecified SNOMED: 336061183 Status: stable, progressing Status Narrative Discussed with Dr. Jordan. Assessment/Plan cdiff negative pain mgmt fu stool studies OB stool r/o GI bleed vs cervical monitor H&H, prn transfusions ppi electrolyte correction low residual diet lomotil PRN fu labs Subjective Subjective diarrhea improved Objective Last 24 Hour Vital Signs Date Time Temp Pulse Resp B/P (MAP) Pulse Ox O2 Delivery O2 Flow Rate FiO2 09/14/17 12:00 97.7 96 18 110/72 99 09/14/17 08:00 97.7 94 20 115/71 100 09/14/17 06:05 97.9 09/14/17 04:06 97.9 09/14/17 04:00 97.8 90 18 106/71 95 09/14/17 00:00 96 Room Air 09/14/17 00:00 97.9 92 18 108/73 96 09/13/17 20:00 97.7 94 18 113/75 97 09/13/17 20:00 97 Room Air Intake and Output 09/13/17 09/14/17 19:00 07:00 Intake Total 360 ml 1440 ml Balance 360 ml 1440 ml Intake Oral 360 ml 240 ml IV Total 1200 ml # Voids 3 2 # Bowel Movements 1 1 Laboratory Tests Test 09/14/17 05:30 White Blood Count 7.3 K/UL (4.8-10.8) Red Blood Count 3.26 M/UL (4.20-5.40) L Hemoglobin 8.8 G/DL (12.0-16.0) L Hematocrit 27.6 % (37.0-47.0) L Mean Corpuscular Volume 85 FL (80-99) Mean Corpuscular Hemoglobin 27.0 PG (27.0-31.0) Mean Corpuscular Hemoglobin Concent 31.9 G/DL (32.0-36.0) L Red Cell Distribution Width 16.0 % (11.6-14.8) H Platelet Count 534 K/UL (150-450) H Mean Platelet Volume 4.9 FL (6.5-10.1) L Neutrophils (%) (Auto) 77.4 % (45.0-75.0) H Lymphocytes (%) (Auto) 14.5 % (20.0-45.0) L Monocytes (%) (Auto) 5.5 % (1.0-10.0) Eosinophils (%) (Auto) 2.1 % (0.0-3.0) Basophils (%) (Auto) 0.6 % (0.0-2.0) Sodium Level 136 MMOL/L (136-145) Potassium Level 3.3 MMOL/L (3.5-5.1) L Chloride Level 99 MMOL/L (98-107) Carbon Dioxide Level 30 MMOL/L (21-32) Anion Gap 7 mmol/L (5-15) Blood Urea Nitrogen 4 mg/dL (7-18) L Creatinine 0.6 MG/DL (0.55-1.30) Estimat Glomerular Filtration Rate > 60 mL/min (>60) Glucose Level 98 MG/DL (74-106) Calcium Level 8.8 MG/DL (8.5-10.1) Height (Feet): 5 Height (Inches): 2.00 Weight (Pounds): 110 General Appearance: WD/WN, no apparent distress, alert, thin Cardiovascular: normal rate Respiratory/Chest: normal breath sounds, no respiratory distress Abdominal Exam: normal bowel sounds, non tender, soft Extremities: normal range of motion, non-tender Cece Gerard N.P. Sep 14, 2017 16:44
[2017-09-14] MEDS ORDERED: D5NS 1000ml IV ONE (19:29)
--- NOTE | 2017-09-14 19:38 | Pulmonology Progress Note ---
Assessment/Plan Problems: (1) Severe anemia (2) Cervical cancer (3) UTI (urinary tract infection) Assessment/Plan feeling better check cultures symptomatic treatment med/surg check h/h in am dc planning soon Subjective ROS Limited/Unobtainable: No Constitutional: Reports: no symptoms HEENT: Repors: no symptoms Respiratory: Reports: no symptoms Allergies: Coded Allergies: No Known Allergies (Unverified , 09/10/17) Objective Last 24 Hour Vital Signs Date Time Temp Pulse Resp B/P (MAP) Pulse Ox O2 Delivery O2 Flow Rate FiO2 09/14/17 16:00 98.2 89 20 112/74 99 09/14/17 12:00 97.7 96 18 110/72 99 09/14/17 08:00 97.7 94 20 115/71 100 09/14/17 06:05 97.9 09/14/17 04:06 97.9 09/14/17 04:00 97.8 90 18 106/71 95 09/14/17 00:00 96 Room Air 09/14/17 00:00 97.9 92 18 108/73 96 09/13/17 20:00 97.7 94 18 113/75 97 09/13/17 20:00 97 Room Air Intake and Output 09/13/17 09/14/17 19:00 07:00 Intake Total 360 ml 1440 ml Balance 360 ml 1440 ml Intake Oral 360 ml 240 ml IV Total 1200 ml # Voids 3 2 # Bowel Movements 1 1 Objective . 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, no motor/sensory deficits Lymphatic: no neck adenopathy Microbiology Date/Time Source Procedure Growth Status 09/12/17 20:00 Stool Stool Culture - Preliminary Resulted 09/12/17 20:00 Stool Clostridium difficile Toxin Assay - Final Resulted Laboratory Tests 09/14/17 05:30: White Blood Count 7.3, Red Blood Count 3.26L, Hemoglobin 8.8L, Hematocrit 27.6L , Mean Corpuscular Volume 85, Mean Corpuscular Hemoglobin 27.0, Mean Corpuscular Hemoglobin Concent 31.9L, Red Cell Distribution Width 16.0H, Platelet Count 534H, Mean Platelet Volume 4.9L, Neutrophils (%) (Auto) 77.4H, Lymphocytes (%) (Auto) 14.5L, Monocytes (%) (Auto) 5.5, Eosinophils (%) (Auto) 2.1, Basophils (%) (Auto) 0.6, Sodium Level 136, Potassium Level 3.3L, Chloride Level 99, Carbon Dioxide Level 30, Anion Gap 7, Blood Urea Nitrogen 4L, Creatinine 0.6, Estimat Glomerular Filtration Rate > 60, Glucose Level 98, Calcium Level 8.8 Current Medications Medications (Trade) Dose Ordered Sig/Francoise Route PRN Reason Start Time Stop Time Status Last Admin Dose Admin Acetaminophen (Tylenol) 650 mg Q4H PRN ORAL fever 09/13/17 18:15 10/11/17 06:14 Al Hydroxide/Mg Hydroxide (Mylanta II) 30 ml Q6H PRN ORAL dyspepsia 09/13/17 18:15 10/11/17 06:14 Dextrose (Dextrose 50%) STAT PRN IV Hypoglycemia 09/13/17 18:00 10/13/17 17:59 Diphenhydramine HCl (Benadryl) 25 mg Q6H PRN ORAL Itching/Pruritis 09/13/17 18:15 10/11/17 06:14 Diphenoxylate HCl/ Atropine (Lomotil) 2.5 mg Q4H PRN ORAL Diarrhea 09/13/17 19:00 10/13/17 18:59 09/14/17 17:07 Morphine Sulfate (Morphine Sulfate) 4 mg Q4H PRN IVP Pain 7-10 09/13/17 18:30 09/18/17 10:29 09/14/17 13:36 Nitroglycerin (Ntg) 0.4 mg Q5M X 3 DOSES PRN SL Prn Chest Pain 09/13/17 18:15 10/11/17 06:14 Ondansetron HCl (Zofran) 4 mg Q6H PRN IVP Nausea & Vomiting 09/13/17 18:15 10/11/17 06:14 Oxycodone/ Acetaminophen (Percocet 10/325) 1 tab Q6H PRN ORAL Moderate Breakthru Pain (5-7) 09/13/17 19:00 09/19/17 18:59 09/14/17 17:08 Polyethylene Glycol (Miralax) 17 gm HSPRN PRN ORAL Constipation 09/13/17 19:00 10/13/17 18:59 Temazepam (Restoril) 15 mg HSPRN PRN ORAL Insomnia 09/13/17 19:00 09/20/17 18:59 JL CHAVEZ Sep 14, 2017 19:38
--- NOTE | 2017-09-15 02:23 | General Progress Note ---
Assessment/Plan Status: stable Assessment/Plan ASSESSMENT AND RECOMMENDATIONS: # Cervical cancer with surgery and xrt upfront and now on chemotherapy, has not had any over the past month -- Continue to follow up with Radiation Oncology. --> f/u with outpatient oncology, receive treatment as outpatient --> consider [facility] genomic evaluation as prognosis for stage iv generally poor for cervical cancer patients # Anemia, secondary to potential gastrointestinal bleed. --> Hemoglobin stable. does not need blood transfusion currently # Leukocytosis, likely secondary to underlying infection, urinary tract infection and pyuria. --> Improved. # Asthma. # Malnutrition, protien caloric Subjective Date patient seen: Sep 14, 2017 Constitutional: Denies: no symptoms, chills, diaphoresis, fever, malaise, weakness, other HEENT: Denies: no symptoms, eye pain, blurred vision, tearing, double vision, ear pain, ear discharge, nose pain, nose congestion, throat pain, throat swelling, mouth pain, mouth swelling, other Cardiovascular: Denies: no symptoms, chest pain, edema, irregular heart rate, lightheadedness, palpitations, syncope, other Respiratory: Denies: no symptoms, cough, orthopnea, shortness of breath, SOB with excertion, SOB at rest, sputum, stridor, wheezing, other Gastrointestinal/Abdominal: Denies: no symptoms, abdomen distended, abdominal pain, black stools, tarry stools, blood in stool, constipated, diarrhea, difficulty swallowing, nausea, poor appetite, poor fluid intake, rectal bleeding , vomiting, other Genitourinary: Denies: no symptoms, burning, discharge, frequency, flank pain, hematuria, incontinence, pain, urgency, other Allergies: Coded Allergies: No Known Allergies (Unverified , 09/10/17) Subjective Hemodynamically stable. No fever or chills. Pending discharge. Objective Last 24 Hour Vital Signs Date Time Temp Pulse Resp B/P (MAP) Pulse Ox O2 Delivery O2 Flow Rate FiO2 09/14/17 16:00 98.2 89 20 112/74 99 09/14/17 12:00 97.7 96 18 110/72 99 09/14/17 08:00 97.7 94 20 115/71 100 09/14/17 06:05 97.9 09/14/17 04:06 97.9 09/14/17 04:00 97.8 90 18 106/71 95 Intake and Output 09/14/17 09/15/17 19:00 07:00 Intake Total 1770 ml Balance 1770 ml Intake Oral 940 ml IV Total 830 ml # Voids 8 # Bowel Movements 2 Laboratory Tests 09/14/17 05:30: White Blood Count 7.3, Red Blood Count 3.26L, Hemoglobin 8.8L, Hematocrit 27.6L , Mean Corpuscular Volume 85, Mean Corpuscular Hemoglobin 27.0, Mean Corpuscular Hemoglobin Concent 31.9L, Red Cell Distribution Width 16.0H, Platelet Count 534H, Mean Platelet Volume 4.9L, Neutrophils (%) (Auto) 77.4H, Lymphocytes (%) (Auto) 14.5L, Monocytes (%) (Auto) 5.5, Eosinophils (%) (Auto) 2.1, Basophils (%) (Auto) 0.6, Sodium Level 136, Potassium Level 3.3L, Chloride Level 99, Carbon Dioxide Level 30, Anion Gap 7, Blood Urea Nitrogen 4L, Creatinine 0.6, Estimat Glomerular Filtration Rate > 60, Glucose Level 98, Calcium Level 8.8 Height (Feet): 5 Height (Inches): 2.00 Weight (Pounds): 110 Chris Spencer Sep 15, 2017 02:23
--- NOTE | 2017-09-15 14:06 | Discharge Summary ---
Discharge Summary Hospital Course Date of Admission Sep 10, 2017 at 23:00 Date of Discharge Sep 14, 2017 at 19:30 Admitting Diagnosis severe anemia, rectal bleeding HPI Tiff Connolly is a 32 year old female who was admitted on Sep 10, 2017 at 23: 00 for Severe Anemia,Rectal Bleeding Hospital Course [id number] Discharge Discharge Disposition Patient was discharged to Home with Home Health(06) Discharge Diagnoses: Brandi Rogers NP Sep 15, 2017 14:06
--- NOTE | 2017-09-16 03:30 | Discharge Summary 2 SIG ---
DATE OF ADMISSION: 09/10/2017 DATE OF DISCHARGE: 09/14/2017 CONSULTANTS: 1. Chris Spencer M.D. 2. Dimitrios Yung M.D. 3. Lon Jordan M.D. 4. Marco Dunbar M.D. 5. Grant Ochoa M.D. BRIEF HOSPITAL COURSE: The patient is a 32-year-old female with history of cervical cancer status post chemotherapy and surgery presented to ED complaining of increased abdominal pain for two days with nausea and vomiting. She is currently receiving chemotherapy at [facility] and was noted to have increased rectal bleed and generalized weakness. On evaluation at ED, blood work showed evidence of anemia. Hemoglobin was 8.1. Hematocrit was 27.5. There was no noted active bleed. Urine showed evidence of urine infection. Urine WBC was too many to count with 2 to 4 RBCs and 3+ leukocyte esterase, and negative nitrite. She was given IV hydration and was started on IV antibiotic. She was admitted to telemetry for severe anemia and was given two units packed RBC blood transfusion. She was given pain management and was started on morphine and was given Percocet 10/325 mg every 6 hours for p.r.n. breakthrough pain. She had diarrhea possible chemotherapy related diarrhea and was given Imodium as needed. She was placed on proton pump inhibitors. C. diff was negative. Stool culture was negative. Urine culture showed growth of mixed positive gram organisms. Ceftriaxone was discontinued. She was tolerating diet well. Venous duplex of lower extremity was negative for DVT. She was advised to continue to follow up with Radiation Oncology. FINAL DIAGNOSES: 1. Urinary tract infection. 2. Acute anemia requiring blood transfusion. 3. Cervical cancer. 4. Anemia secondary to potential gastrointestinal bleed. 5. Protein-calorie malnutrition. DISPOSITION: The patient was discharged home with home health. DISCHARGE INSTRUCTIONS: Follow up with oncologist and PMD in a week. Dano Guillaume D.O. I have been assigned to dictate discharge summary on this account and I was not involved in the patient's management. Brandi Rogers N.P. DR: ELENA JOB#: [id number] CC:
--- NOTE | 2017-10-01 20:40 | Diagnostic Imaging Report ---
APPROVED REPORT CPT Code: 06592 Present Symptoms Lower Extremity Pain: BILATERAL LOWER EXTREMITY VENOUS DUPLEX: Imaging reveals a patent deep venous system bilaterally. There is no evidence of thrombus within the femoral, popliteal or tibial segments. The greater saphenous veins are also within normal limits. Doppler indicates normal spontaneous flow within these segments.
== END 2017-09-14 19:30 | disposition home health service (06) | DRG 253 ==
LOC: EDBD 21:50 → EDBEDREQ 22:03 → EMR 22:10 → 2E 23:00 → EDBEDREQ 09-11 14:24 → 4W 09-13 17:55
PROC: 30233K1 Transfusion of Nonautologous Frozen Plasma into Peripheral Vein, Percutaneous Approach (ICD-10-PCS; principal; 2017-09-11)
PROC: 30233N1 Transfusion of Nonautologous Red Blood Cells into Peripheral Vein, Percutaneous Approach (ICD-10-PCS; 2017-09-11)
DX: K92.2 Gastrointestinal hemorrhage, unspecified (principal); E46 Unspecified protein-calorie malnutrition; K52.1 Toxic gastroenteritis and colitis; E87.1 Hypo-osmolality and hyponatremia; D64.9 Anemia, unspecified; N39.0 Urinary tract infection, site not specified; C53.9 Malignant neoplasm of cervix uteri, unspecified; J45.909 Unspecified asthma, uncomplicated; Z68.20 Body mass index [BMI] 20.0-20.9, adult; T45.1X5A Adverse effect of antineoplastic and immunosuppressive drugs, initial encounter; Y92.89 Other specified places as the place of occurrence of the external cause
CPT/HCPCS: 36415; 80048; 80053; 81001; 82150; 82607; 82728; 83605; 83690; 84238; 84443; 85025; 85044; 85610; 85730; 86850; 86900; 86901; 86920; 86927; 87040; 87045; 87086; 87324; 93005; 93970; 97803; 99285; J2405; J8499

== ENCOUNTER 2017-09-22 07:32 | Inpatient (IN) | payer MEDICAID, OTHER ==
[~2017-09-22] VITALS: Ht 160 cm; Wt 32.7 kg
[2017-09-22] VITALS (23 sets, daily range): BP systolic 92–148; BP diastolic 42–76
[~2017-09-22 07:32] MED LIST: OXYCODONE-ACET1 EAC5 ORAL
[2017-09-22] MEDS ORDERED: Morphine Sulfate 4mg/ml Inj IVP ONE ×2 (07:45→11:00)
--- NOTE | 2017-09-22 08:17 | Emergency Room Report ---
History of Present Illness General Chief Complaint: Abdominal Pain Source: Patient, Family Member, Medical Record Present Illness HPI 32-year-old female brought in by EMS for sharp centralized abdominal pain since last night, associated with diarrhea and recurring blood in stool. Patient denies associated nausea, vomiting, fever or chills. Patient with history of cervical CA, has been off chemotherapy for one month, was told to "take a break from it". Patient had recent admission here for similar, required blood transfusion. Stool cultures were negative on review of previous visit. Patient did not have CT at that time. Patient was seen by GI however on review of EMR does not look like colonoscopy or endoscopy was done. GI bleed thought to to chemotherapy related diarrhea. Allergies: Coded Allergies: No Known Allergies (Unverified , 09/10/17) Patient History Past Medical History: other - cervical Ca Past Surgical History: none Pertinent Family History: none Social History: Denies: smoking, alcohol use, drug use Last Menstrual Period: NA Now: No Immunizations: UTD Reviewed Nursing Documentation: PMH: Agreed, PSxH: Agreed Nursing Documentation-PMH Past Medical History: No History, Except For Hx Cardiac Problems: No Hx Cancer: Yes - Cervical Hx Gastrointestinal Problems: No Hx Neurological Problems: No Review of Systems All Other Systems: negative except mentioned in HPI Physical Exam Vital Signs Date Time Temp Pulse Resp B/P (MAP) Pulse Ox O2 Delivery O2 Flow Rate FiO2 09/22/17 07:34 98.4 120 14 97/57 99 Room Air Sp02 EP Interpretation: reviewed, normal General Appearance: normal inspection, well appearing, no apparent distress, alert, GCS 15, non-toxic, cachetic, thin, Chronically Ill Head: normocephalic, atraumatic Eyes: bilateral eye PERRL, bilateral eye EOMI ENT: normal ENT inspection, hearing grossly normal, normal pharynx, no angioedema, normal voice, TMs + canals normal, uvula midline, moist mucus membranes Neck: normal inspection, full range of motion, supple, thyroid normal, no meningismus, no bony tend Respiratory: normal inspection, lungs clear, normal breath sounds, no rhonchi, no respiratory distress, no retraction, no accessory muscle use, no wheezing, speaking full sentences Cardiovascular #1: regular rate, rhythm, no edema, no JVD, normal capillary refill Gastrointestinal: normal inspection, normal bowel sounds, soft, no mass, no peritonitis, non-distended, no guarding, no hernia, no pulsatile mass, other - mild ttp. 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, motor strength/tone normal, cerebellar normal, normal gait, speech normal Psychiatric: normal inspection, judgement/insight normal, mood/affect normal, no suicidal/homicidal ideation, no delusions Skin: normal inspection, pallor Lymphatic: normal inspection, no adenopathy Medical Decision Making Diagnostic Impression: Primary Impression: Abdominal pain Qualified Codes: R10.13 - Epigastric pain Additional Impressions: Anemia Qualified Codes: D64.9 - Anemia, unspecified GI bleed Qualified Codes: K92.2 - Gastrointestinal hemorrhage, unspecified ER Course 2-year-old female with history of cervical cancer, with abdominal pain. Vital signs significant for tachycardia. On exam patient is thin, cachectic, and pale. hb 7.3 - transfusing 2 units in the ER CT scanner is inoperable at time of endorsement to Dr Guillaume for admission CT ordered, advised Dr Guillaume to followup Recommend GI consult to do colonoscopy for continued rectal bleed - no active hemorrhage in ED. Rhythm Strip Diag. Results EP Interpretation: yes Rate: 114 Rhythm: no PVC's, no ectopy Last Vital Signs Date Time Temp Pulse Resp B/P (MAP) Pulse Ox O2 Delivery O2 Flow Rate FiO2 09/22/17 07:45 100.5 126 15 92/52 100 Room Air Status: improved Disposition: ADMITTED INPATIENT Condition: Serious SANDI CARRANZA M.D. Sep 22, 2017 08:17
[2017-09-22 08:29] LABS: HEMATOCRIT 23.1 % (37.0-47.0); HEMOGLOBIN 7.3 G/DL (12.0-16.0); MEAN CORPUSCULAR VOLUME 82 FL (80-99); PLATELET COUNT 673 K/UL (150-450); RED BLOOD COUNT 2.81 M/UL (4.20-5.40); RED CELL DISTRIBUTION WIDTH 16.1 % (11.6-14.8); WHITE BLOOD COUNT 4.4 K/UL (4.8-10.8)
[2017-09-22] MEDS ORDERED: HYDROmorphone 1mg/ml Carpuject IVP ONE (09:00)
[2017-09-22 09:16] LABS: ALBUMIN 2.3 G/DL (3.4-5.0); ALBUMIN/GLOBULIN RATIO 0.5 (1.0-2.7); ANION GAP 8 mmol/L (5-15); BILIRUBIN,TOTAL 0.4 MG/DL (0.2-1.0); CARBON DIOXIDE 29 MMOL/L (21-32); CHLORIDE 97 MMOL/L (98-107); CREATININE 0.5 MG/DL (0.55-1.30); POTASSIUM 3.9 MMOL/L (3.5-5.1); SODIUM 134 MMOL/L (136-145)
[2017-09-22 09:41] LABS: ALANINE AMINOTRANSFERASE 23 U/L (12-78); ALKALINE PHOSPHATASE 103 U/L (46-116); ASPARTATE AMINO TRANSFERASE 22 U/L (15-37); BLOOD UREA NITROGEN 17 mg/dL (7-18); CALCIUM 9.2 MG/DL (8.5-10.1)
[2017-09-22 10:10] LABS: APPEARANCE,URINE CLEAR; BILIRUBIN, URINE NEGATIVE (NEGATIVE); GLUCOSE, URINE (UA) NEGATIVE (NEGATIVE); KETONES,URINE 2+ (NEGATIVE); LEUKOCYTE ESTERASE ,URINE 3+ (NEGATIVE); NITRITE,URINE NEGATIVE (NEGATIVE); PH,URINE 5 (4.5-8.0); PROTEIN,URINE 1+ (NEGATIVE); UROBILINOGEN,URINE 4 MG/DL (0.0-1.0)
[2017-09-22 10:20] LABS: COLOR,URINE YELLOW
[2017-09-22] MEDS ORDERED: Piperacillin/Tazobactam 3.375 GM in NS 110 ML IVPB ONE ×2 (11:00→15:30)
[2017-09-22] MEDS ORDERED: Zosyn 3.375gm inj ONE (11:08)
--- NOTE | 2017-09-22 11:12 | Diagnostic Imaging Report ---
Indication: Pain. History of cervical cancer. Technique: CT of the abdomen and pelvis utilizing automated exposure control with intravenous contrast. Venous scanning performed. CT dose: Total DLP 345.08 mGycm; CTDI vol 7.95 mGy Comparison: None Findings: No focal consolidation, pleural effusion or pneumothorax noted in the visualized lung bases. Heart size within normal limits. No pericardial effusion seen. There is a moderate amount of free air within the abdomen. The largest pockets of air are noted anterior to the liver (series 3 image #14) and within the midline lower abdomen (series 3 image 40). Some small foci of free air suspected within the retroperitoneum (series 3 image #28, #31). These findings are highly concerning for a hollow viscus perforation. There is copious stool within the colon, which is slightly distended. Multiple abnormally dilated small bowel loops are noted within the lower abdomen/pelvis. Exact site of suspected perforation is difficult to delineate, especially given paucity of intra-abdominal fat. There is mild ascites. Liver, gallbladder, spleen, adrenal glands and pancreas are grossly unremarkable in appearance. Kidneys enhance symmetrically. There is no urinary tract stone or hydronephrosis bilaterally. The bladder is mildly distended but otherwise unremarkable. The uterus is not definitively visualized and may be surgically absent. Limited evaluation for lymphadenopathy. Abdominal aorta is normal in caliber. No acute osseous abnormality is seen. IMPRESSION: Moderate amount of free air in the abdomen most concerning for hollow viscus perforation. Copious stool within the colon, which is slightly distended. Multiple abnormally dilated small bowel loops in the pelvis. Site (or sites) of suspected perforation is difficult to confidently delineate, especially given paucity of intra-abdominal fat. Small foci of free air also noted in the retroperitoneum. Findings discussed with treating ER physician DILLON 10:40 AM on 09/22/[address] scanner at [facility] is accredited by the [employer] and the scans are performed using protocols designed to limit radiation exposure to as low as reasonably achievable to attain images of sufficient resolution adequate for diagnostic evaluation.
[2017-09-22 11:19] LABS: INR 1.1 (0.9-1.1)
[2017-09-22] MEDS ORDERED: Bupivacaine 0.25% Inj 30ml INJ ONE (13:52)
[2017-09-22] MEDS ORDERED: Bacitracin 50000 Units Vial ONE ×2 (13:53→21:45)
[2017-09-22] MEDS ORDERED: Lidocaine 1% 10mg/ml/Epi 0.005mg/ml 30ml vial INJ ONE (13:53)
--- NOTE | 2017-09-22 14:36 | Pre-Procedure Note/Attestation ---
Pre-Procedure Note/Attestation Complete Prior to Procedure Planned Procedure: not applicable Procedure Narrative: exploratory laparotomy Indications for Procedure Pre-Operative Diagnosis: perforated hollow viscus Attestation I attest that I discussed the nature of the procedure; its benefits; risks and complications; and alternatives (and the risks and benefits of such alternatives ), prior to the procedure, with the patient (or the patient's legal outbound call center representative). I attest that, if there was a reasonable possibility of needing a blood transfusion, the patient (or the patient's legal outbound call center representative) was given the [facility] standardized written summary, pursuant to the Parveen Derek Blood Safety Act ([place] Health and Safety Code # 1645, as amended). I attest that I re-evaluated the patient just prior to the surgery and that there has been no change in the patient's H&P, except as documented below: DWAYNE OLIVER Sep 22, 2017 14:36
--- NOTE | 2017-09-22 14:46 | GI Initial Consult Note ---
History of Present Illness General Date patient seen: Sep 22, 2017 Time patient seen: 14:36 Reason for Hospitalization: Abdominal Pain Referring physician: SONIDO FELICIANO Reason for Consultation: ABDOMINAL PAIN / GI BLEED Present Illness HPI 32-year-old female brought in by EMS for sharp centralized abdominal pain since last night, associated with diarrhea and recurring blood in stool. Patient denies associated nausea, vomiting, fever or chills. Patient with history of cervical CA, has been off chemotherapy for one month, was told to "take a break from it". Patient had recent admission here for similar, required blood transfusion. Stool cultures were negative on review of previous visit. Patient did not have CT at that time. Patient was seen by GI however on review of EMR does not look like colonoscopy or endoscopy was done. GI bleed thought to to chemotherapy related diarrhea. GI consulted for abdominal pain. HPI noted above. Patient was recently seen by GI here at [facility] for chronic diarrhea. At the time, the patient was having uncontrolled diarrhea and thus we were asked to evaluate. Stool cultures and cdiff were negative during last admission. Given the recent history of chemo and GI work up, we symptomatically controlled the patients diarrhea until it resolved. OB stool to r/o any GI bleed was never collected. She presents today with continued diarrhea and reports of blood in the stool. CT AP today reveals moderate amount of free air in the abdomen most concerning for hollow viscus perforation, see full report. Surgery called to consult. Home Meds Reported Medications Oxycodone Hcl/Acetaminophen 10-325* (OXYCODONE-ACETAMINOPHEN 10-325*) 1 Each Tablet, 1 TAB ORAL Q6H Y for For Pain, #30 TAB 0 Refills 09/11/17 Med list reviewed/reconciled: Yes Allergies: Coded Allergies: No Known Allergies (Unverified , 09/10/17) Patient History History Provided By: Patient, Medical Record PMH Narrative Past Medical History: other - cervical Ca Past Surgical History: none Pertinent Family History: none Social History: Denies: smoking, alcohol use, drug use Last Menstrual Period: NA Now: No Immunizations: UTD Reviewed Nursing Documentation: PMH: Agreed, PSxH: Agreed Nursing Documentation-PM Past Medical History: No History, Except For Hx Cardiac Problems: No Hx Cancer: Yes - Cervical Hx Gastrointestinal Problems: No Hx Neurological Problems: No Social History: Denies: smoking, alcohol use, drug use, other Review of Systems All Other Systems: negative except mentioned in HPI Physical Exam Vital Signs Date Time Temp Pulse Resp B/P (MAP) Pulse Ox O2 Delivery O2 Flow Rate FiO2 09/22/17 07:34 98.4 120 14 97/57 99 Room Air Sp02 EP Interpretation: reviewed, normal Labs Laboratory Tests Test 09/22/17 07:55 09/22/17 10:00 09/22/17 10:58 09/22/17 12:10 White Blood Count 4.4 K/UL (4.8-10.8) L Red Blood Count 2.81 M/UL (4.20-5.40) L Hemoglobin 7.3 G/DL (12.0-16.0) L Hematocrit 23.1 % (37.0-47.0) L Mean Corpuscular Volume 82 FL (80-99) Mean Corpuscular Hemoglobin 25.8 PG (27.0-31.0) L Mean Corpuscular Hemoglobin Concent 31.3 G/DL (32.0-36.0) L Red Cell Distribution Width 16.1 % (11.6-14.8) H Platelet Count 673 K/UL (150-450) H Mean Platelet Volume 4.8 FL (6.5-10.1) L Neutrophils (%) (Auto) % (45.0-75.0) Lymphocytes (%) (Auto) % (20.0-45.0) Monocytes (%) (Auto) % (1.0-10.0) Eosinophils (%) (Auto) % (0.0-3.0) Basophils (%) (Auto) % (0.0-2.0) Differential Total Cells Counted 100 Neutrophils % (Manual) 77 % (45-75) H Lymphocytes % (Manual) 10 % (20-45) L Monocytes % (Manual) 5 % (1-10) Eosinophils % (Manual) 0 % (0-3) Basophils % (Manual) 0 % (0-2) Band Neutrophils 8 % (0-8) Platelet Estimate Increased H Platelet Morphology Normal Polychromasia 2+ Hypochromasia 1+ Anisocytosis 1+ Sodium Level 134 MMOL/L (136-145) L Potassium Level 3.9 MMOL/L (3.5-5.1) Chloride Level 97 MMOL/L (98-107) L Carbon Dioxide Level 29 MMOL/L (21-32) Anion Gap 8 mmol/L (5-15) Blood Urea Nitrogen 17 mg/dL (7-18) Creatinine 0.5 MG/DL (0.55-1.30) L Estimat Glomerular Filtration Rate > 60 mL/min (>60) Glucose Level 120 MG/DL (74-106) H Calcium Level 9.2 MG/DL (8.5-10.1) Total Bilirubin 0.4 MG/DL (0.2-1.0) Aspartate Amino Transf (AST/SGOT) 22 U/L (15-37) Alanine Aminotransferase (ALT/SGPT) 23 U/L (12-78) Alkaline Phosphatase 103 U/L (46-116) Total Protein 7.1 G/DL (6.4-8.2) Albumin 2.3 G/DL (3.4-5.0) L Globulin 4.8 g/dL Albumin/Globulin Ratio 0.5 (1.0-2.7) L Lipase 32 U/L (73-393) L Urine Color Yellow Urine Appearance Clear Urine pH 5 (4.5-8.0) Urine Specific [place] 1.025 (1.005-1.035) Urine Protein 1+ (NEGATIVE) H Urine Glucose (UA) Negative (NEGATIVE) Urine Ketones 2+ (NEGATIVE) H Urine Occult Blood 1+ (NEGATIVE) H Urine Nitrite Negative (NEGATIVE) Urine Bilirubin Negative (NEGATIVE) Urine Urobilinogen 4 MG/DL (0.0-1.0) H Urine Leukocyte Esterase 3+ (NEGATIVE) H Urine RBC 0-2 /HPF (0 - 2) Urine WBC 10-15 /HPF (0 - 2) H Urine Squamous Epithelial Cells Moderate /LPF (NONE/OCC) H Urine Bacteria Few /HPF (NONE) Urine Mucus Few /LPF (NONE/OCC) H Urine HCG, Qualitative Negative Prothrombin Time 11.2 SEC (9.30-11.50) Prothromb Time International Ratio 1.1 (0.9-1.1) Lactic Acid Level 2.30 mmol/L (0.66-2.22) H 0.90 mmol/L (0.66-2.22) General Appearance: well appearing, no apparent distress, alert, thin Head: normocephalic EENT: PERRL/EOMI, normal ENT inspection Neck: supple Respiratory: normal breath sounds, no respiratory distress Cardiovascular: normal rate Gastrointestinal: normal inspection, non tender, soft, normal bowel sounds, non -distended Rectal: deferred Genitourinary: no CVA tenderness Musculoskeletal: normal inspection, back normal Neurologic: normal inspection, alert, oriented x3, responsive Psychiatric: normal inspection, judgement/insight normal, memory normal Skin: normal inspection, normal color, no rash, warm/dry, palpation normal, well hydrated Lymphatic: normal inspection, no adenopathy GI: Plan Problems: (1) Abdominal pain (2) Anemia (3) Intra-abdominal free air of unknown etiology Plan scheduled for surgery today monitor H&H, prn transfusions ppi fu labs Discussed with Dr. Jordan. Thank you for this patient referral, we will follow. Cece Gerard N.P. Sep 22, 2017 14:46
[2017-09-22] MEDS ORDERED: Midazolam 2mg/2ml Inj ONE ×2 (14:57→15:00)
[2017-09-22] MEDS ORDERED: fentaNYL 100 mcg/2 mL IV ONE ×2 (14:57→15:00)
[2017-09-22] MEDS ORDERED: Morphine Sulfate 2mg/ml Inj ONE ×2 (14:57→15:00)
[2017-09-22] MEDS ORDERED: Succinylcholine 20mg/ml 10ml vial ONE (15:00)
[2017-09-22] MEDS ORDERED: Metoclopramide 10mg/2ml Inj ONE (15:00)
[2017-09-22] MEDS ORDERED: Ketorolac 30mg Inj ONE (15:00)
[2017-09-22] MEDS ORDERED: Zemuron 50mg/5ml Inj IV ONE (15:00)
[2017-09-22] MEDS ORDERED: Propofol 200mg/20ml IV ONE (15:00)
[2017-09-22] MEDS ORDERED: LR 1000ml ONE (15:00)
[2017-09-22] MEDS ORDERED: Dexamethasone 4mg/ml vial ONE (15:00)
[2017-09-22] MEDS ORDERED: Glycopyrrolate 0.2mg/ml 1ml Vial ONE (15:00)
[2017-09-22] MEDS ORDERED: NS Irrig 1000ml IRRIG ONE (15:05)
[2017-09-22] MEDS ORDERED: LR 1000ml 1,000 ML IVLG SCH (16:27)
[2017-09-22] MEDS ORDERED: Ketorolac 30mg Inj IV PRN (16:30)
[2017-09-22] MEDS ORDERED: Morphine Sulfate 2mg/ml Inj IVP PRN (16:30)
[2017-09-22] MEDS ORDERED: fentaNYL 100 mcg/2 mL IV PRN (16:30)
--- NOTE | 2017-09-22 16:32 | Anethesia Preoperative Eval ---
Anesthesia Pre-op PMH/ROS General Date of Evaluation: Sep 22, 2017 Time of Evaluation: 15:02 Anesthesiologist: Georgie ASA Score: ASA 3 Mallampati Score Class I : Soft palate, uvula, fauces, pillars visible Class II: Soft palate, uvula, fauces visible Class III: Soft palate, base of uvula visible Class IV: Only hard plate visible Mallampati Classification: Class II Diagnosis: Bowel Obstruction Surgical Procedure: x-Lap Anesthesia History: none Family History: no anesthesia problems Allergies: Coded Allergies: No Known Allergies (Unverified , 09/10/17) Medications: see eMAR Anesthesia Pre-op Phys. Exam Physician Exam Last Vital Signs Date Time Temp Pulse Resp B/P (MAP) Pulse Ox O2 Delivery O2 Flow Rate FiO2 09/22/17 14:00 113 19 100/52 99 Room Air 09/22/17 13:15 98.4 Constitutional: NAD Neurologic: CN 2-12 intact Cardiovascular: RRR Respiratory: CTA Gastrointestinal: S/NT/ND Airway Exam Mallampati Score: Class II MO: full ROM: full Teeth: intact Anesthesia Pre-op A/P Labs Hematology Test 09/22/17 07:55 White Blood Count 4.4 K/UL (4.8-10.8) L Red Blood Count 2.81 M/UL (4.20-5.40) L Hemoglobin 7.3 G/DL (12.0-16.0) L Hematocrit 23.1 % (37.0-47.0) L Mean Corpuscular Volume 82 FL (80-99) Mean Corpuscular Hemoglobin 25.8 PG (27.0-31.0) L Mean Corpuscular Hemoglobin Concent 31.3 G/DL (32.0-36.0) L Red Cell Distribution Width 16.1 % (11.6-14.8) H Platelet Count 673 K/UL (150-450) H Mean Platelet Volume 4.8 FL (6.5-10.1) L Neutrophils (%) (Auto) % (45.0-75.0) Lymphocytes (%) (Auto) % (20.0-45.0) Monocytes (%) (Auto) % (1.0-10.0) Eosinophils (%) (Auto) % (0.0-3.0) Basophils (%) (Auto) % (0.0-2.0) Differential Total Cells Counted 100 Neutrophils % (Manual) 77 % (45-75) H Lymphocytes % (Manual) 10 % (20-45) L Monocytes % (Manual) 5 % (1-10) Eosinophils % (Manual) 0 % (0-3) Basophils % (Manual) 0 % (0-2) Band Neutrophils 8 % (0-8) Platelet Estimate Increased H Platelet Morphology Normal Polychromasia 2+ Hypochromasia 1+ Anisocytosis 1+ Coagulation Test 09/22/17 10:58 Prothrombin Time 11.2 SEC (9.30-11.50) Prothromb Time International Ratio 1.1 (0.9-1.1) Chemistry Test 09/22/17 07:55 09/22/17 10:58 09/22/17 12:10 Sodium Level 134 MMOL/L (136-145) L Potassium Level 3.9 MMOL/L (3.5-5.1) Chloride Level 97 MMOL/L (98-107) L Carbon Dioxide Level 29 MMOL/L (21-32) Anion Gap 8 mmol/L (5-15) Blood Urea Nitrogen 17 mg/dL (7-18) Creatinine 0.5 MG/DL (0.55-1.30) L Estimat Glomerular Filtration Rate > 60 mL/min (>60) Glucose Level 120 MG/DL (74-106) H Calcium Level 9.2 MG/DL (8.5-10.1) Total Bilirubin 0.4 MG/DL (0.2-1.0) Aspartate Amino Transf (AST/SGOT) 22 U/L (15-37) Alanine Aminotransferase (ALT/SGPT) 23 U/L (12-78) Alkaline Phosphatase 103 U/L (46-116) Total Protein 7.1 G/DL (6.4-8.2) Albumin 2.3 G/DL (3.4-5.0) L Globulin 4.8 g/dL Albumin/Globulin Ratio 0.5 (1.0-2.7) L Lipase 32 U/L (73-393) L Lactic Acid Level 2.30 mmol/L (0.66-2.22) H 0.90 mmol/L (0.66-2.22) Urine Test Test 09/22/17 10:00 Urine HCG, Qualitative Negative Risk Assessment & Plan Plan: GA Status Change Before Surgery: No Pre-Antibiotics Drug: Zosyn Given Within 1 Hr of Incision: Yes Time Given: 15:30 Abimael Jacques M.D. Sep 22, 2017 16:32
--- NOTE | 2017-09-22 16:36 | Immediate Post-Op Evaluation ---
Immediate Post-Op Evalulation Immediate Post-Op Evalulation Procedure: ExLap Bowel Rsection Date of Evaluation: Sep 22, 2017 Time of Evaluation: 17:30 IV Fluids: 1000 Blood Products: PRBC Estimated Blood Loss: 50 Urinary Output: 200 Blood Pressure Systolic: 139 Blood Pressure Diastolic: 78 Pulse Rate: 109 Respiratory Rate: 28 O2 Sat by Pulse Oximetry: 99 Temperature (Fahrenheit): 98 Pain Score (1-10): 0 Nausea: No Vomiting: No Patient Status: reacts, patent, ventilated Hydration Status: adequate Drug: Zosyn Given Within 1 Hr of Incision: Yes Time Given: 15:20 Abimael Jacques M.D. Sep 22, 2017 16:36
--- NOTE | 2017-09-22 16:37 | 48 Hour Post Anesthesia Eval ---
Post Anesthesia Evaluation Procedure: ExLap Bowel Rsection Date of Evaluation: Sep 24, 2017 Time of Evaluation: 09:00 Blood Pressure Systolic: 139 0: 63 Pulse Rate: 109 Respiratory Rate: 24 Temperature (Fahrenheit): 99 O2 Sat by Pulse Oximetry: 99 Airway: patent Nausea: No Vomiting: No Pain Intensity: 0 Hydration Status: adequate Mental Status/LOC: patient returned to baseline Post-Anesthesia Complications: none Abimael Jacques M.D. Sep 22, 2017 16:37
[2017-09-22] MEDS ORDERED: Acetaminophen 650 MG SUPP RECTAL PRN (16:45)
--- NOTE | 2017-09-22 16:58 | Brief Operative Note ---
Immediate Post Operative Note Operative Note Pre-op Diagnosis: perforated hollow viscus Post-op Diagnosis: perforation of cecum and recto-sigmoid Post-op Diagnosis: same as pre-op Findings: consistent w/pre-op dx studies Surgeon: MD Brian Auto Transmission Technician: MD Edilberto Anesthesiologist: Anesthesia: general Specimen: yes Complications: none Condition: stable Fluids: per anesthesialogist Estimated Blood Loss: volume - 100ml Drains: GENET Implant(s) used?: No DWAYNE OLIVER Sep 22, 2017 16:58
[2017-09-22] MEDS ORDERED: HYDROmorphone 1mg/ml Carpuject IVP PRN (19:44)
[2017-09-22] MEDS ORDERED: Hydromorphone 0.5mg/0.5ml inj IVP PRN (19:44)
[2017-09-22] MEDS: D5 1/2NS w/KCl 20mEq 1,000 ML IV SCH (20:55)
[2017-09-22] MEDS ORDERED: GENTAMICIN 120 MG/100 ML IVPB ONE (21:00)
[2017-09-22] MEDS ORDERED: NS IVPB ONE (21:00)
--- NOTE | 2017-09-22 21:30 | Consultation ---
DATE OF CONSULTATION: 09/22/2017 PREOPERATIVE CONSULTATION CONSULTING PHYSICIAN: Gonzalo Lopez M.D. REQUESTING PHYSICIAN: Emergency room. REASON FOR CONSULTATION: Abdominal pain. HISTORY OF PRESENT ILLNESS: This is a 32-year-old female with a history of advanced cervical cancer, presented to emergency room complaining of abdominal pain since yesterday. She stated that the pain is all over the abdomen. She denied any nausea or vomiting. She had a bowel movement yesterday. She denies any fever, cough, dysuria, or frequency. PAST MEDICAL HISTORY: She denies allergies, asthma, diabetes, hypertension, or renal diseases. She has a history of cancer of the cervix. PAST SURGICAL HISTORY: Surgeries include hysterectomy. MEDICATIONS: Please see the medicine reconciliation form. SOCIAL HISTORY: The patient is a 32-year-old female, who is single without any children. She is unemployed and denies smoking or drinking. REVIEW OF SYSTEMS: She complains of weakness and anemia. PHYSICAL EXAMINATION: GENERAL: The patient appeared to be a well-developed, well-nourished, cachectic, 32-year-old female, lying on the gurney, complaining of severe abdominal pain. She does not lie supine, as it triggers the abdominal pain. HEENT: Head is normocephalic and atraumatic. Eyes, pupils are equal, round, and reactive to light. Conjunctivae are completely anemic. Mouth is clear, but dry. NECK: There is no palpable thyromegaly or adenopathy. CHEST: Clear to auscultation and percussion. HEART: There is no gallop or murmur. S1 and S2 are within normal limits. ABDOMEN: Flat, but the patient has severe tenderness and rebound tenderness and guarding. Bowel sounds are absent. GENITAL: Deferred. EXTREMITIES: Cachectic. LABORATORY AND DIAGNOSTIC DATA: CBC has shown a WBC of 4400 with a left shift. Chemistry is basically normal except for the lactic acid, which is 2.3. On CBC, hemoglobin is 7.3 g. The CAT scan of the abdomen has been interpreted with free air in the abdomen and there is some retroperitoneal air. ASSESSMENT: Perforated hollow viscus. PLAN: The patient requires exploratory laparotomy. The risks and benefits have been explained to her. She understood and granted the consent. Gonzalo Lopez M.D. DR: SHAHID JOB#: [id number] CC:
[2017-09-22] MEDS ORDERED: Piperacillin/Tazobactam 3.375 GM in D5W 110 ML IVPB SCH (22:00)
--- NOTE | 2017-09-22 22:00 | Operative Note - Dictated ---
DATE OF OPERATION: 09/22/2017 PREOPERATIVE DIAGNOSIS: Acute abdomen due to the perforated hollow viscus. POSTOPERATIVE DIAGNOSIS: Perforation of the cecum and the rectosigmoid. OPERATION: 1. Exploratory laparotomy and lysis of the adhesion. 2. Partial right hemicolectomy with primary anastomosis. 3. Resection of the rectosigmoid with Katerina pouch and colostomy. COMPLICATIONS: None. SURGEON: Gonzalo Lopez M.D. OVEREDGE MACHINE OPERATOR: Jag Casanova M.D. ANESTHESIA: General with endotracheal tube. ANESTHESIOLOGIST: Dr. Jacques. INDICATION: This is a 32-year-old female, who presented to the emergency room complaining of severe abdominal pain since yesterday. The pain was all over the abdomen, but mainly at the lower abdomen. Physical examination showed tenderness, rebound tenderness, and guarding all over the abdomen. CBC showed a WBC of 4400 with left shift. CAT scan of the abdomen showed free air in the abdomen. It should be noted that the patient has a history of cancer of the cervix, for which she has been on chemotherapy and has received radiation and she is carrying diagnosis of advanced cancer. DESCRIPTION OF PROCEDURE: The patient was placed supine on the operating table and after general anesthesia with endotracheal tube, the abdomen was properly prepped and draped. A midline incision was given initially above the umbilicus and was carried sharply through the subcutaneous tissue and peritoneum. Intraperitoneal cavity was entered and the stomach and duodenum was explored, which failed to show perforation and so the incision was extended all the way to the pubis. At this time, we noticed the adhesion of the omentum in the pelvis and there was fecal fluid on the left paracolic gutter, from which a culture was obtained. Exploration was performed. There was dense adhesion in the pelvis. Initially, the omentum was released and it was noticed that there was fecal material in the area and the small bowel, which had adhesion in the pelvis was gradually dissected and released and then finally, the attention was given to the sigmoid colon and cecum, both of which were at the bottom of the pelvis. There was a large amount of the formed stool in the pelvis and exploration was performed and the sigmoid colon was released and it was noticed that both cecum and sigmoid colon at the area of the rectosigmoid they both had a perforation, large perforation, which seems was due to the hard stool. Initially, the cecum was released and a large amount of formed stool was removed from the pelvis. Partial right hemicolectomy was performed with a JAKE stapler and the cecum and part of the terminal ileum was removed. The mesentery was ligated with 2-0 silk. The specimen was removed. Later, end-to-end anastomosis and functional anastomosis was performed between the terminal ileum and ascending colon with the help of the JAKE stapler and the mesentery defect in the mesentery was approximated with multiple interrupted suture of 3-0 silk. At the next step, the attention was given to the sigmoid colon. As I mentioned, the patient had perforation at the area of the rectosigmoid. Again, the sigmoid colon was transected with the help of the JAKE stapler and then the rectum was transected immediately proximal to the floor of the pelvis and the rectum was resected with the help of a TA stapler. As it seemed that the rectum had an extra perforation, the area of the repair was oversewn with 0 Prolene. The perforated part of the rectosigmoid and the part of the sigmoid colon was removed. After this, the pelvis was thoroughly irrigated with antibiotic solution and Betadine. The intraperitoneal cavity was thoroughly irrigated with antibiotic solution. The descending colon was released and the end of the sigmoid colon was brought out from the colostomy site on the left lower quadrant. The abdominal incision was approximated with running suture of the PDS and then the attention was given to the colostomy, which was matured with multiple interrupted suture of 3-0 Vicryl. The patient tolerated the procedure well and was transferred to ICU in the guarded condition. Sponge and needle count correct. Estimated blood loss 100 mL. Condition of the patient at the end of the procedure is guarded. Gonzalo Lopez M.D. DR: ESA JOB#: [id number] CC: MARILYN
--- NOTE | 2017-09-22 22:50 | Pulmonolgy Critical Care Note ---
Critical Care - Asmt/Plan Problems: (1) Perforated sigmoid colon (2) Perforation of cecum Respiratory: monitor respiratory rate, adjust FIO2, CXR Cardiac: continue to monitor HR/BP Renal: F/U I&O, keep IV fluid Infectious Disease: check cultures Gastrointestinal: hold feedings Endocrine: monitor blood sugar Hematologic: monitor H/H Neurologic: PRN Ativan Prophylaxis: Protonix, Heparin Disposition: keep in ICU Critical Care - Objective Last 24 Hour Vital Signs Date Time Temp Pulse Resp B/P (MAP) Pulse Ox O2 Delivery O2 Flow Rate FiO2 09/22/17 21:04 Room Air 09/22/17 19:15 123 19 118/60 100 Mechanical Ventilator 40 09/22/17 19:00 125 18 113/71 100 Mechanical Ventilator 40 09/22/17 18:46 122 25 100 09/22/17 18:45 123 24 107/62 100 Mechanical Ventilator 80 09/22/17 18:30 124 26 124/53 100 Mechanical Ventilator 100 09/22/17 18:15 133 26 102/52 100 Mechanical Ventilator 100 09/22/17 17:58 142 27 100 09/22/17 17:53 98.4 137 24 119/53 100 Mechanical Ventilator 100 09/22/17 17:52 100 09/22/17 17:45 95 09/22/17 16:37 109 24 99 09/22/17 16:36 109 28 99 09/22/17 14:00 113 19 100/52 99 Room Air 09/22/17 13:15 98.4 114 17 99/51 99 Room Air 09/22/17 13:00 98.3 115 16 09/22/17 13:00 98.3 115 18 106/48 98 Room Air 09/22/17 12:55 98.1 115 15 09/22/17 12:30 98.2 116 17 102/53 98 Room Air 09/22/17 12:00 117 15 104/56 98 Room Air 09/22/17 11:30 119 18 105/49 98 Room Air 09/22/17 11:20 118 17 100/54 98 Room Air 09/22/17 11:05 98.6 122 18 102/42 100 Room Air 09/22/17 11:00 98.7 123 14 103/53 100 Room Air 09/22/17 10:55 98.2 122 18 104/52 100 Room Air 09/22/17 10:50 98.6 121 18 09/22/17 10:50 98.6 121 18 108/56 100 Room Air 09/22/17 09:11 98.0 60 15 148/76 100 Room Air 09/22/17 08:58 98.9 126 12 106/60 100 Room Air 09/22/17 08:57 98.9 09/22/17 07:45 100.5 126 15 92/52 100 Room Air 09/22/17 07:34 98.4 120 14 97/57 99 Room Air Status: sedated Condition: critical HEENT: atraumatic Heart: HR/BP stable Abdomen: non-tender, feeding tube Extremities: edema Critical Care - Subjective ROS Limited/Unobtainable: Yes ICU Day: 1 EKG Rhythm: Sinus Rhythm FI02: 40 Vent Support Breath Rate: 14 Vent Support Mode: AC Vent Tidal Volume: 400 Sputum Amount: None PIP: 18 ET-Tube: 7.0 ET Position: 21 JL CHAVEZ Sep 22, 2017 22:50
[2017-09-22] MEDS ORDERED: LORazepam 1mg tab ORAL PRN (23:00)
[2017-09-23] VITALS (11 sets, daily range): BP systolic 103–132; BP diastolic 70–82
[2017-09-23] MEDS ORDERED: Piperacillin/Tazobactam 3.375 GM in D5W 110 ML IVPB SCH ×2
[2017-09-23] MEDS: D5 1/2NS w/KCl 20mEq 1,000 ML IV SCH ×3 (06:11→17:08)
[2017-09-23 06:34] LABS: HEMATOCRIT 41.6 % (37.0-47.0); HEMOGLOBIN 13.9 G/DL (12.0-16.0); MEAN CORPUSCULAR VOLUME 86 FL (80-99); PLATELET COUNT 512 K/UL (150-450); RED BLOOD COUNT 4.86 M/UL (4.20-5.40); RED CELL DISTRIBUTION WIDTH 14.3 % (11.6-14.8); WHITE BLOOD COUNT 14.8 K/UL (4.8-10.8)
[2017-09-23 06:49] LABS: PHOSPHORUS 3.7 MG/DL (2.5-4.9)
[2017-09-23 06:55] LABS: ALANINE AMINOTRANSFERASE 11 U/L (12-78); ALBUMIN 1.6 G/DL (3.4-5.0); ALBUMIN/GLOBULIN RATIO 0.4 (1.0-2.7); ALKALINE PHOSPHATASE 81 U/L (46-116); ANION GAP 8 mmol/L (5-15); ASPARTATE AMINO TRANSFERASE 18 U/L (15-37); BILIRUBIN,TOTAL 2.7 MG/DL (0.2-1.0); BLOOD UREA NITROGEN 11 mg/dL (7-18); CALCIUM 8.5 MG/DL (8.5-10.1); CARBON DIOXIDE 25 MMOL/L (21-32); CHLORIDE 100 MMOL/L (98-107); CREATININE 0.6 MG/DL (0.55-1.30); POTASSIUM 4.4 MMOL/L (3.5-5.1); SODIUM 133 MMOL/L (136-145)
[2017-09-23 07:02] LABS: BILIRUBIN,DIRECT 1.4 MG/DL (0.0-0.3)
--- NOTE | 2017-09-23 07:30 | History and Physical Report ---
DATE OF ADMISSION: 09/22/2017 NOTE: POOR AUDIO HISTORY OF PRESENT ILLNESS: The patient is admitted for perforated bowel. according to the ER doctor has been contacted by the ER doctor. According to the ER doctor, Dr. Lopez urgently to the OR perforated bowel for the repair. After that is completed, she is admitted to ICU. I saw the patient in the morning while the patient was in the emergency room. The patient has lost weight and has cervical cancer, status post chemotherapy and radiation for the cervical cancer as well as hysterectomy. The patient is complaining of severe abdominal pain. She lost about 35 pounds since May. She has pain all over, especially in the abdomen. Denies vomiting. PAST MEDICAL HISTORY: Cervical cancer, anemia. The patient severe anemia. PAST SURGICAL HISTORY: Hysterectomy. ALLERGIES: No known allergies. MEDICATIONS: She takes pain medication. FAMILY HISTORY: Noncontributory. SOCIAL HISTORY: The patient denies history of smoking, alcohol, or illicit drugs. REVIEW OF SYSTEMS: HEENT: Denies headaches. RESPIRATORY: Denies shortness of breath. Denies cough. CARDIOVASCULAR: Denies chest pain. GASTROINTESTINAL: Reports severe abdominal pain and vomiting and pain all over as well. EXTREMITIES: Denies pain. CENTRAL NERVOUS SYSTEM: Denies change in vision or speech pattern. Feels very weak and has lost weight. PHYSICAL EXAMINATION: VITAL SIGNS: pulse is 133, and blood pressure 102/52. HEENT: PERRLA. NECK: Supple. CHEST: Clear to auscultation. CARDIOVASCULAR: Tachycardic. ABDOMEN: Diffusely tender. Positive bowel sounds. EXTREMITIES: No edema. The patient is cachectic. Reflexes equal on both sides. NEUROLOGIC: There is generalized weakness. LABORATORY DATA: WBC of 4.4, hemoglobin 7.3, and platelets of 673. Sodium 134, potassium 3.9, BUN 17, creatinine 0.7, and glucose 120. Lactic acid of 3.3. ASSESSMENT AND PLAN: Perforated bowel. Dr. Lopez has been consulted. The patient go emergently to tachycardia as well as severely anemic, rule out sepsis. I have asked Dr. Ingram, Dr. Mauricio, Dr. Jordan, as well as Dr. Yung and Dr. Chris Spencer to see the patient for the above-mentioned diagnoses and treatment. Nadia Blackmon M.D. DR: RIYA JOB#: [id number] CC:
--- NOTE | 2017-09-23 07:37 | Pulmonolgy Critical Care Note ---
Critical Care - Asmt/Plan Assessment/Plan: ASSESSMENT Acute abdominal pain 2 to perforation Perforated cecum and rectosigmoid s/p exp laparotomy with partial R hemicolectomy cervical Ca GI bleeding anemia due to acute blood loss severe protein calorie malnutrition PLAN OF CARE improving CT A/P with evidence of free air s/p emergent surgery surgery follows IVF NPO Abx, ID follows, urine cx + mixed GPO IS at the ebdside and encourage to use q1hr Pain management wound care O2 HN prn DVT prophylaxis monitor HH, anemia wup, transfuse to keep Hgb above 8, s/p 3 u PRBC development lead consult, nutritional support when start diet transfer to tele case discussed and evaluated by supervising physician Critical Care - Objective Last 24 Hour Vital Signs Date Time Temp Pulse Resp B/P (MAP) Pulse Ox O2 Delivery O2 Flow Rate FiO2 09/23/17 06:00 106 16 103/71 98 Room Air 09/23/17 05:20 109 18 09/23/17 05:00 104 18 103/71 98 Room Air 09/23/17 04:01 105 09/23/17 04:00 109 09/23/17 04:00 98.2 104 16 111/71 98 Room Air 09/23/17 03:11 109 18 09/23/17 03:00 104 17 112/77 98 Room Air 09/23/17 02:00 102 16 110/79 99 Room Air 09/23/17 01:00 106 16 109/82 97 Room Air 09/23/17 00:00 97.8 108 16 112/70 97 Room Air 09/23/17 00:00 109 09/22/17 23:00 107 16 111/73 98 Room Air 09/22/17 22:00 110 18 108/67 98 Room Air 09/22/17 21:04 Room Air 09/22/17 21:00 114 18 107/73 100 Mechanical Ventilator 40 09/22/17 20:00 98.0 119 17 121/74 100 Mechanical Ventilator 40 09/22/17 20:00 115 09/22/17 19:15 123 19 118/60 100 Mechanical Ventilator 40 09/22/17 19:00 125 18 113/71 100 Mechanical Ventilator 40 09/22/17 18:46 122 25 100 09/22/17 18:45 123 24 107/62 100 Mechanical Ventilator 80 09/22/17 18:30 124 26 124/53 100 Mechanical Ventilator 100 09/22/17 18:15 133 26 102/52 100 Mechanical Ventilator 100 09/22/17 17:58 142 27 100 09/22/17 17:53 98.4 137 24 119/53 100 Mechanical Ventilator 100 09/22/17 17:52 100 09/22/17 17:45 95 09/22/17 16:37 109 24 99 09/22/17 16:36 109 28 99 09/22/17 14:00 113 19 100/52 99 Room Air 09/22/17 13:15 98.4 114 17 99/51 99 Room Air 09/22/17 13:00 98.3 115 16 09/22/17 13:00 98.3 115 18 106/48 98 Room Air 09/22/17 12:55 98.1 115 15 09/22/17 12:30 98.2 116 17 102/53 98 Room Air 09/22/17 12:00 117 15 104/56 98 Room Air 09/22/17 11:30 119 18 105/49 98 Room Air 09/22/17 11:20 118 17 100/54 98 Room Air 09/22/17 11:05 98.6 122 18 102/42 100 Room Air 09/22/17 11:00 98.7 123 14 103/53 100 Room Air 09/22/17 10:55 98.2 122 18 104/52 100 Room Air 09/22/17 10:50 98.6 121 18 09/22/17 10:50 98.6 121 18 108/56 100 Room Air 09/22/17 09:11 98.0 60 15 148/76 100 Room Air 09/22/17 08:58 98.9 126 12 106/60 100 Room Air 09/22/17 08:57 98.9 09/22/17 07:45 100.5 126 15 92/52 100 Room Air Status: awake, other - A/A/O x 3 cachectic femal Condition: improving HEENT: atraumatic, normocephalic, other - NGT intact Neck: full ROM Lungs: clear Heart: HR/BP stable Abdomen: soft, other - abdominal dressing C/D/I ; drain intact Extremities: no C/C/E, other - SCD on Critical Care - Subjective Interval Events: leukocytosis this am, afebrile ABG stable on RA no signs of respiratory distress pain intermittently controlled with current analgesic regimen Condition: stable IV Access: central - R jugular CL intact EKG Rhythm: Sinus Rhythm Vent Tidal Volume: 400 PIP: 18 Fluids: D51/2 NS + 20 KCL at 100 I&O: Intake and Output 09/22/17 09/23/17 19:00 07:00 Intake Total 360 ml 982.5 ml Output Total 15 ml 500 ml Balance 345 ml 482.5 ml Intake Oral 0 ml IV Total 110 ml 982.5 ml Blood Product 250 ml Output Urine Total 15 ml 360 ml Drainage Total 140 ml # Bowel Movements 6 CXR: 09/23 NG tube in the stomach. Right jugular catheter in the region of the superior vena cava. Drain in the right upper quadrant of the abdomen. No acute abnormality. Carroll (VipulNikole szymanski NP Sep 23, 2017 07:37
[2017-09-23] MEDS ORDERED: Hydromorphone 0.5mg/0.5ml inj IVP PRN (07:45)
[2017-09-23] MEDS ORDERED: HYDROmorphone 1mg/ml Carpuject IVP PRN (07:45)
--- NOTE | 2017-09-23 07:57 | General Progress Note ---
Assessment/Plan Problem List: (1) Perforated sigmoid colon ICD Codes: K63.1 - Perforation of intestine (nontraumatic) SNOMED: 520288085 (2) Perforation of cecum ICD Codes: K63.1 - Perforation of intestine (nontraumatic) SNOMED: 784666099 Assessment/Plan post op D#1 fu surgical recs NPO pain control Subjective ROS Limited/Unobtainable: Yes Allergies: Coded Allergies: No Known Allergies (Unverified , 09/10/17) Subjective abd pain Objective Last 24 Hour Vital Signs Date Time Temp Pulse Resp B/P (MAP) Pulse Ox O2 Delivery O2 Flow Rate FiO2 09/23/17 06:00 106 16 103/71 98 Room Air 09/23/17 05:20 109 18 09/23/17 05:00 104 18 103/71 98 Room Air 09/23/17 04:01 105 09/23/17 04:00 109 09/23/17 04:00 98.2 104 16 111/71 98 Room Air 09/23/17 03:11 109 18 09/23/17 03:00 104 17 112/77 98 Room Air 09/23/17 02:00 102 16 110/79 99 Room Air 09/23/17 01:00 106 16 109/82 97 Room Air 09/23/17 00:00 97.8 108 16 112/70 97 Room Air 09/23/17 00:00 109 09/22/17 23:00 107 16 111/73 98 Room Air 09/22/17 22:00 110 18 108/67 98 Room Air 09/22/17 21:04 Room Air 09/22/17 21:00 114 18 107/73 100 Mechanical Ventilator 40 09/22/17 20:00 98.0 119 17 121/74 100 Mechanical Ventilator 40 09/22/17 20:00 115 09/22/17 19:15 123 19 118/60 100 Mechanical Ventilator 40 09/22/17 19:00 125 18 113/71 100 Mechanical Ventilator 40 09/22/17 18:46 122 25 100 18 18:45 123 24 107/62 100 Mechanical Ventilator 80 09/22/17 18:30 124 26 124/53 100 Mechanical Ventilator 100 09/22/17 18:15 133 26 102/52 100 Mechanical Ventilator 100 09/22/17 17:58 142 27 100 09/22/17 17:53 98.4 137 24 119/53 100 Mechanical Ventilator 100 09/22/17 17:52 100 09/22/17 17:45 95 09/22/17 16:37 109 24 99 09/22/17 16:36 109 28 99 09/22/17 14:00 113 19 100/52 99 Room Air 09/22/17 13:15 98.4 114 17 99/51 99 Room Air 09/22/17 13:00 98.3 115 16 09/22/17 13:00 98.3 115 18 106/48 98 Room Air 09/22/17 12:55 98.1 115 15 09/22/17 12:30 98.2 116 17 102/53 98 Room Air 09/22/17 12:00 117 15 104/56 98 Room Air 09/22/17 11:30 119 18 105/49 98 Room Air 09/22/17 11:20 118 17 100/54 98 Room Air 09/22/17 11:05 98.6 122 18 102/42 100 Room Air 09/22/17 11:00 98.7 123 14 103/53 100 Room Air 09/22/17 10:55 98.2 122 18 104/52 100 Room Air 09/22/17 10:50 98.6 121 18 09/22/17 10:50 98.6 121 18 108/56 100 Room Air 09/22/17 09:11 98.0 60 15 148/76 100 Room Air 09/22/17 08:58 98.9 126 12 106/60 100 Room Air 09/22/17 08:57 98.9 Intake and Output 09/22/17 09/23/17 19:00 07:00 Intake Total 360 ml 982.5 ml Output Total 15 ml 500 ml Balance 345 ml 482.5 ml Intake Oral 0 ml IV Total 110 ml 982.5 ml Blood Product 250 ml Output Urine Total 15 ml 360 ml Drainage Total 140 ml # Bowel Movements 6 Laboratory Tests 09/22/17 10:00: Urine Color Yellow, Urine Appearance Clear, Urine pH 5, Urine Specific [place] 1.025, Urine Protein 1+H, Urine Glucose (UA) Negative, Urine Ketones 2+H, Urine Occult Blood 1+H, Urine Nitrite Negative, Urine Bilirubin Negative, Urine Urobilinogen 4H, Urine Leukocyte Esterase 3+H, Urine RBC 0-2, Urine WBC 10-15H, Urine Squamous Epithelial Cells ModerateH, Urine Bacteria Few, Urine Mucus FewH , Urine HCG, Qualitative Negative 09/22/17 10:58: Prothrombin Time 11.2, Prothromb Time International Ratio 1.1, Lactic Acid Level 2.30H 09/22/17 12:10: Lactic Acid Level 0.90 09/22/17 20:15: Arterial Blood pH 7.470H, Arterial Blood Partial Pressure CO2 35.6, Arterial Blood Partial Pressure O2 202.7H, Arterial Blood HCO3 25.4, Arterial Blood Oxygen Saturation 99.3H, Arterial Blood Base Excess 2.1, Braxton Test Positive 09/23/17 05:10: White Blood Count 14.8#H, Red Blood Count 4.86, Hemoglobin 13.9#, Hematocrit 41.6#, Mean Corpuscular Volume 86, Mean Corpuscular Hemoglobin 28.7, Mean Corpuscular Hemoglobin Concent 33.4, Red Cell Distribution Width 14.3, Platelet Count 512H, Mean Platelet Volume 4.7L, Neutrophils (%) (Auto) , Lymphocytes (%) (Auto) , Monocytes (%) (Auto) , Eosinophils (%) (Auto) , Basophils (%) (Auto) , Neutrophils % (Manual) [Pending], Lymphocytes % (Manual) [Pending], Platelet Estimate [Pending], Platelet Morphology [Pending], Sodium Level 133L, Potassium Level 4.4, Chloride Level 100, Carbon Dioxide Level 25, Anion Gap 8, Blood Urea Nitrogen 11, Creatinine 0.6, Estimat Glomerular Filtration Rate > 60, Glucose Level 155H, Calcium Level 8.5, Phosphorus Level 3.7, Magnesium Level 1.7L, Total Bilirubin 2.7H, Direct Bilirubin 1.4H, Aspartate Amino Transf (AST/SGOT) 18, Alanine Aminotransferase (ALT/SGPT) 11L, Alkaline Phosphatase 81, Total Protein 5.9L, Albumin 1.6L, Globulin 4.3, Albumin/Globulin Ratio 0.4L Height (Feet): 5 Height (Inches): 3.00 Weight (Pounds): 72 General Appearance: lethargic EENT: normal ENT inspection Neck: supple Cardiovascular: normal rate Respiratory/Chest: decreased breath sounds Abdomen: other - post surgical Extremities: non-tender WINNIE WEATHERS Sep 23, 2017 07:57
[2017-09-23] MEDS ORDERED: LORazepam 1mg tab ORAL PRN (08:00)
[2017-09-23] MEDS ORDERED: Acetaminophen 650 MG SUPP RECTAL PRN (08:00)
[2017-09-23] MEDS: Piperacillin/Tazobactam 3.375 GM in D5W 110 ML IVPB SCH ×2 (08:24→15:46)
[2017-09-23] MEDS: Pantoprazole Inj IVP SCH (08:25)
[2017-09-23] MEDS: Heparin 5000 units/ml inj SUBQ SCH ×2 (08:41→21:01)
[2017-09-23] MEDS ORDERED: Pantoprazole Inj IVP SCH (09:00)
[2017-09-23] MEDS ORDERED: Heparin 5000 units/ml inj SUBQ SCH (09:00)
--- NOTE | 2017-09-23 10:01 | Diagnostic Imaging Report ---
Indication: Reason For Exam: [email or web address] Technique: XRAY Chest 1v Comparison:None Findings: The heart is normal in size. Lungs are clear. No pleural fluid. A right jugular central line appears to be in place with the tip in the region of the superior vena cava. A nasogastric tube is in the stomach. There is a drain in the right upper quadrant of the abdomen. Impression: NG tube in the stomach. Right jugular catheter in the region of the superior vena cava. Drain in the right upper quadrant of the abdomen. No acute abnormality.
[2017-09-23] MEDS ORDERED: Albuterol/Ipratropium 3ml neb HHN PRN (11:00)
--- NOTE | 2017-09-23 15:49 | General Progress Note ---
Assessment/Plan Problem List: (1) Anemia ICD Codes: D64.9 - Anemia, unspecified SNOMED: 533376966 Qualifiers: Qualified Codes: D64.9 - Anemia, unspecified (2) Abdominal pain ICD Codes: R10.9 - Unspecified abdominal pain SNOMED: 81559046 Qualifiers: Qualified Codes: R10.13 - Epigastric pain (3) Intra-abdominal free air of unknown etiology ICD Codes: K66.8 - Other specified disorders of peritoneum SNOMED: 91377711 (4) Perforated sigmoid colon ICD Codes: K63.1 - Perforation of intestine (nontraumatic) SNOMED: 356523021 (5) Perforation of cecum ICD Codes: K63.1 - Perforation of intestine (nontraumatic) SNOMED: 999748498 Status: progressing Assessment/Plan abdominal pain is improving post repair s/p perforated viscus treatment per surgeon Subjective Allergies: Coded Allergies: No Known Allergies (Unverified , 09/10/17) Subjective abd pain Objective Last 24 Hour Vital Signs Date Time Temp Pulse Resp B/P (MAP) Pulse Ox O2 Delivery O2 Flow Rate FiO2 09/23/17 12:00 97.7 112 18 105/71 95 Room Air 09/23/17 12:00 112 09/23/17 10:57 09/23/17 08:00 109 09/23/17 08:00 97.3 109 20 111/77 96 Room Air 09/23/17 06:00 106 16 103/71 98 Room Air 09/23/17 05:20 109 18 09/23/17 05:00 104 18 103/71 98 Room Air 09/23/17 04:01 105 09/23/17 04:00 109 09/23/17 04:00 98.2 104 16 111/71 98 Room Air 09/23/17 03:11 109 18 09/23/17 03:00 104 17 112/77 98 Room Air 09/23/17 02:00 102 16 110/79 99 Room Air 09/23/17 01:00 106 16 109/82 97 Room Air 09/23/17 00:00 97.8 108 16 112/70 97 Room Air 09/23/17 00:00 109 09/22/17 23:00 107 16 111/73 98 Room Air 09/22/17 22:00 110 18 108/67 98 Room Air 09/22/17 21:04 Room Air 09/22/17 21:00 114 18 107/73 100 Mechanical Ventilator 40 09/22/17 20:00 98.0 119 17 121/74 100 Mechanical Ventilator 40 09/22/17 20:00 115 09/22/17 19:15 123 19 118/60 100 Mechanical Ventilator 40 09/22/17 19:00 125 18 113/71 100 Mechanical Ventilator 40 09/22/17 18:46 122 25 100 09/22/17 18:45 123 24 107/62 100 Mechanical Ventilator 80 09/22/17 18:30 124 26 124/53 100 Mechanical Ventilator 100 09/22/17 18:15 133 26 102/52 100 Mechanical Ventilator 100 09/22/17 17:58 142 27 100 09/22/17 17:53 98.4 137 24 119/53 100 Mechanical Ventilator 100 09/22/17 17:52 100 09/22/17 17:45 95 09/22/17 16:37 109 24 99 09/22/17 16:36 109 28 99 Intake and Output 09/22/17 09/23/17 19:00 07:00 Intake Total 360 ml 982.5 ml Output Total 15 ml 500 ml Balance 345 ml 482.5 ml Intake Oral 0 ml IV Total 110 ml 982.5 ml Blood Product 250 ml Output Urine Total 15 ml 360 ml Drainage Total 140 ml # Bowel Movements 6 Laboratory Tests 09/22/17 20:15: Arterial Blood pH 7.470H, Arterial Blood Partial Pressure CO2 35.6, Arterial Blood Partial Pressure O2 202.7H, Arterial Blood HCO3 25.4, Arterial Blood Oxygen Saturation 99.3H, Arterial Blood Base Excess 2.1, Braxton Test Positive 09/23/17 05:10: White Blood Count 14.8#H, Red Blood Count 4.86, Hemoglobin 13.9#, Hematocrit 41.6#, Mean Corpuscular Volume 86, Mean Corpuscular Hemoglobin 28.7, Mean Corpuscular Hemoglobin Concent 33.4, Red Cell Distribution Width 14.3, Platelet Count 512H, Mean Platelet Volume 4.7L, Neutrophils (%) (Auto) , Lymphocytes (%) (Auto) , Monocytes (%) (Auto) , Eosinophils (%) (Auto) , Basophils (%) (Auto) , Differential Total Cells Counted 100, Neutrophils % (Manual) 96H, Lymphocytes % (Manual) 2L, Monocytes % (Manual) 2, Eosinophils % (Manual) 0, Basophils % ( Manual) 0, Band Neutrophils 0, Platelet Estimate Adequate, Platelet Morphology Normal, Sodium Level 133L, Potassium Level 4.4, Chloride Level 100, Carbon Dioxide Level 25, Anion Gap 8, Blood Urea Nitrogen 11, Creatinine 0.6, Estimat Glomerular Filtration Rate > 60, Glucose Level 155H, Calcium Level 8.5, Phosphorus Level 3.7, Magnesium Level 1.7L, Total Bilirubin 2.7H, Direct Bilirubin 1.4H, Aspartate Amino Transf (AST/SGOT) 18, Alanine Aminotransferase ( ALT/SGPT) 11L, Alkaline Phosphatase 81, Total Protein 5.9L, Albumin 1.6L, Globulin 4.3, Albumin/Globulin Ratio 0.4L 09/23/17 09:00: Arterial Blood pH 7.329L, Arterial Blood Partial Pressure CO2 48.3H, Arterial Blood Partial Pressure O2 76.3, Arterial Blood HCO3 24.8, Arterial Blood Oxygen Saturation 94.3, Arterial Blood Base Excess -1.5, Braxton Test Positive Height (Feet): 5 Height (Inches): 3.00 Weight (Pounds): 72 Abdomen: tender Nadia Blackmon MD Sep 23, 2017 15:49
--- NOTE | 2017-09-23 18:20 | General Surgery Progress Note ---
General Surgery-Progress Note Subjective Symptoms: improved Objective Last 24 Hour Vital Signs Date Time Temp Pulse Resp B/P (MAP) Pulse Ox O2 Delivery O2 Flow Rate FiO2 09/23/17 16:00 97.7 109 18 113/74 94 Room Air 09/23/17 12:00 97.7 112 18 105/71 95 Room Air 09/23/17 12:00 112 09/23/17 10:57 09/23/17 08:00 109 09/23/17 08:00 97.3 109 20 111/77 96 Room Air 09/23/17 06:00 106 16 103/71 98 Room Air 09/23/17 05:20 109 18 09/23/17 05:00 104 18 103/71 98 Room Air 09/23/17 04:01 105 09/23/17 04:00 109 09/23/17 04:00 98.2 104 16 111/71 98 Room Air 09/23/17 03:11 109 18 09/23/17 03:00 104 17 112/77 98 Room Air 09/23/17 02:00 102 16 110/79 99 Room Air 09/23/17 01:00 106 16 109/82 97 Room Air 09/23/17 00:00 97.8 108 16 112/70 97 Room Air 09/23/17 00:00 109 09/22/17 23:00 107 16 111/73 98 Room Air 09/22/17 22:00 110 18 108/67 98 Room Air 09/22/17 21:04 Room Air 09/22/17 21:00 114 18 107/73 100 Mechanical Ventilator 40 09/22/17 20:00 98.0 119 17 121/74 100 Mechanical Ventilator 40 09/22/17 20:00 115 09/22/17 19:15 123 19 118/60 100 Mechanical Ventilator 40 09/22/17 19:00 125 18 113/71 100 Mechanical Ventilator 40 09/22/17 18:46 122 25 100 09/22/17 18:45 123 24 107/62 100 Mechanical Ventilator 80 09/22/17 18:30 124 26 124/53 100 Mechanical Ventilator 100 I&O Intake and Output 09/22/17 09/23/17 19:00 07:00 Intake Total 360 ml 982.5 ml Output Total 15 ml 500 ml Balance 345 ml 482.5 ml Intake Oral 0 ml IV Total 110 ml 982.5 ml Blood Product 250 ml Output Urine Total 15 ml 360 ml Drainage Total 140 ml # Bowel Movements 6 Wound: other - open packed Drains: james Respiratory: clear Abdomen: soft, flat, tenderness, absent bowel sounds Extremities: no tenderness Laboratory Tests Test 09/22/17 20:15 09/23/17 05:10 09/23/17 09:00 Arterial Blood pH 7.470 (7.350-7.450) 7.329 (7.350-7.450) Arterial Blood Partial Pressure CO2 35.6 mmHg (35.0-45.0) 48.3 mmHg (35.0-45.0) H Arterial Blood Partial Pressure O2 202.7 mmHg (75.0-100.0) H 76.3 mmHg (75.0-100.0) Arterial Blood HCO3 25.4 mmol/L (22.0-26.0) 24.8 mmol/L (22.0-26.0) Arterial Blood Oxygen Saturation 99.3 % (92.0-98.0) H 94.3 % (92.0-98.0) Arterial Blood Base Excess 2.1 -1.5 Braxton Test Positive Positive White Blood Count 14.8 K/UL (4.8-10.8) #H Red Blood Count 4.86 M/UL (4.20-5.40) Hemoglobin 13.9 G/DL (12.0-16.0) # Hematocrit 41.6 % (37.0-47.0) # Mean Corpuscular Volume 86 FL (80-99) Mean Corpuscular Hemoglobin 28.7 PG (27.0-31.0) Mean Corpuscular Hemoglobin Concent 33.4 G/DL (32.0-36.0) Red Cell Distribution Width 14.3 % (11.6-14.8) Platelet Count 512 K/UL (150-450) H Mean Platelet Volume 4.7 FL (6.5-10.1) L Neutrophils (%) (Auto) % (45.0-75.0) Lymphocytes (%) (Auto) % (20.0-45.0) Monocytes (%) (Auto) % (1.0-10.0) Eosinophils (%) (Auto) % (0.0-3.0) Basophils (%) (Auto) % (0.0-2.0) Differential Total Cells Counted 100 Neutrophils % (Manual) 96 % (45-75) H Lymphocytes % (Manual) 2 % (20-45) L Monocytes % (Manual) 2 % (1-10) Eosinophils % (Manual) 0 % (0-3) Basophils % (Manual) 0 % (0-2) Band Neutrophils 0 % (0-8) Platelet Estimate Adequate Platelet Morphology Normal Sodium Level 133 MMOL/L (136-145) L Potassium Level 4.4 MMOL/L (3.5-5.1) Chloride Level 100 MMOL/L (98-107) Carbon Dioxide Level 25 MMOL/L (21-32) Anion Gap 8 mmol/L (5-15) Blood Urea Nitrogen 11 mg/dL (7-18) Creatinine 0.6 MG/DL (0.55-1.30) Estimat Glomerular Filtration Rate > 60 mL/min (>60) Glucose Level 155 MG/DL (74-106) H Calcium Level 8.5 MG/DL (8.5-10.1) Phosphorus Level 3.7 MG/DL (2.5-4.9) Magnesium Level 1.7 MG/DL (1.8-2.4) L Total Bilirubin 2.7 MG/DL (0.2-1.0) H Direct Bilirubin 1.4 MG/DL (0.0-0.3) H Aspartate Amino Transf (AST/SGOT) 18 U/L (15-37) Alanine Aminotransferase (ALT/SGPT) 11 U/L (12-78) L Alkaline Phosphatase 81 U/L (46-116) Total Protein 5.9 G/DL (6.4-8.2) L Albumin 1.6 G/DL (3.4-5.0) L Globulin 4.3 g/dL Albumin/Globulin Ratio 0.4 (1.0-2.7) L Assessment Post-op Diagnosis perforation of cecum and recto-sigmoid Plan Additional Comments continue current treatment DWAYNE OLIVER Sep 23, 2017 18:20
[2017-09-24] MEDS: Piperacillin/Tazobactam 3.375 GM in D5W 110 ML IVPB SCH ×3 (00:07→16:26)
[2017-09-24 00:32] VITALS: BP 105/70
[2017-09-24] MEDS: D5 1/2NS w/KCl 20mEq 1,000 ML IV SCH ×2 (03:30→14:53)
[2017-09-24 04:20] VITALS: BP 110/78
[2017-09-24 07:20] LABS: HEMATOCRIT 33.3 % (37.0-47.0); MEAN CORPUSCULAR VOLUME 87 FL (80-99); PLATELET COUNT 441 K/UL (150-450); RED BLOOD COUNT 3.82 M/UL (4.20-5.40); WHITE BLOOD COUNT 19.7 K/UL (4.8-10.8)
[2017-09-24 07:34] LABS: % IRON SATURATION 12 % (15-50); IRON 7 ug/dL (50-175); TOTAL IRON BINDING CAPACITY 60 ug/dL (250-450)
[2017-09-24 07:46] LABS: ANION GAP 4 mmol/L (5-15); BLOOD UREA NITROGEN 6 mg/dL (7-18); CALCIUM 8.7 MG/DL (8.5-10.1); CARBON DIOXIDE 29 MMOL/L (21-32); CHLORIDE 96 MMOL/L (98-107); CREATININE 0.5 MG/DL (0.55-1.30); FERRITIN 386 NG/ML (8-388); POTASSIUM 4.4 MMOL/L (3.5-5.1); SODIUM 129 MMOL/L (136-145)
[2017-09-24 08:00] VITALS: BP 109/75
[2017-09-24] MEDS: Pantoprazole Inj IVP SCH (08:10)
[2017-09-24] MEDS: Heparin 5000 units/ml inj SUBQ SCH ×2 (08:18→20:49)
--- NOTE | 2017-09-24 08:31 | General Progress Note ---
Assessment/Plan Problem List: (1) Perforated sigmoid colon ICD Codes: K63.1 - Perforation of intestine (nontraumatic) SNOMED: 242800813 (2) Perforation of cecum ICD Codes: K63.1 - Perforation of intestine (nontraumatic) SNOMED: 338555230 Assessment/Plan post op D#2 fu surgical recs NPO pain control Subjective ROS Limited/Unobtainable: Yes Allergies: Coded Allergies: No Known Allergies (Unverified , 09/10/17) Subjective abd pain Objective Last 24 Hour Vital Signs Date Time Temp Pulse Resp B/P (MAP) Pulse Ox O2 Delivery O2 Flow Rate FiO2 09/24/17 04:20 96.4 111 18 110/78 98 Nasal Cannula 09/24/17 04:20 Room Air 09/24/17 04:00 115 09/24/17 00:32 Room Air 09/24/17 00:32 96.7 102 18 105/70 98 Nasal Cannula 09/24/17 00:00 105 09/23/17 20:34 97.5 112 18 132/76 Nasal Cannula 09/23/17 20:34 97 Room Air 09/23/17 20:00 117 09/23/17 16:00 112 09/23/17 16:00 97.7 109 18 113/74 94 Room Air 09/23/17 12:00 97.7 112 18 105/71 95 Room Air 09/23/17 12:00 112 09/23/17 10:57 Intake and Output 09/23/17 09/24/17 19:00 07:00 Intake Total 1150.5 ml 1273.0 ml Output Total 600 ml 990 ml Balance 550.5 ml 283.0 ml IV Total 1150.5 ml 1273.0 ml Output Urine Total 600 ml 910 ml Drainage Total 80 ml # Bowel Movements 2 2 Laboratory Tests 09/23/17 09:00: Arterial Blood pH 7.329L, Arterial Blood Partial Pressure CO2 48.3H, Arterial Blood Partial Pressure O2 76.3, Arterial Blood HCO3 24.8, Arterial Blood Oxygen Saturation 94.3, Arterial Blood Base Excess -1.5, Braxton Test Positive 09/24/17 05:10: White Blood Count 19.7H, Red Blood Count 3.82L, Hemoglobin 11.0L, Hematocrit 33.3L, Mean Corpuscular Volume 87, Mean Corpuscular Hemoglobin 28.9, Mean Corpuscular Hemoglobin Concent 33.1, Red Cell Distribution Width 15.0H, Platelet Count 441, Mean Platelet Volume 4.4L, Neutrophils (%) (Auto) , Lymphocytes (%) (Auto) , Monocytes (%) (Auto) , Eosinophils (%) (Auto) , Basophils (%) (Auto) , Neutrophils % (Manual) [Pending], Lymphocytes % (Manual) [Pending], Platelet Estimate [Pending], Platelet Morphology [Pending], Sodium Level 129L, Potassium Level 4.4, Chloride Level 96L, Carbon Dioxide Level 29, Anion Gap 4L, Blood Urea Nitrogen 6L, Creatinine 0.5L, Estimat Glomerular Filtration Rate > 60, Glucose Level 104, Calcium Level 8.7, Magnesium Level 2.1 , Iron Level 7L, Total Iron Binding Capacity 60L, Percent Iron Saturation 12L, Unsaturated Iron Binding 53L, Ferritin 386, Prealbumin [Pending] Height (Feet): 5 Height (Inches): 3.00 Weight (Pounds): 72 General Appearance: alert EENT: normal ENT inspection Neck: supple Cardiovascular: normal rate Respiratory/Chest: decreased breath sounds Pelvis: other - post surgical Extremities: non-tender WINNIE WEATHERS Sep 24, 2017 08:31
[2017-09-24 12:00] VITALS: BP 113/67
--- NOTE | 2017-09-24 13:40 | General Surgery Progress Note ---
General Surgery-Progress Note Subjective Symptoms: improved Objective Last 24 Hour Vital Signs Date Time Temp Pulse Resp B/P (MAP) Pulse Ox O2 Delivery O2 Flow Rate FiO2 09/24/17 12:46 96.4 09/24/17 08:00 97.9 111 18 109/75 98 Nasal Cannula 09/24/17 08:00 107 09/24/17 04:20 96.4 111 18 110/78 98 Nasal Cannula 09/24/17 04:20 Room Air 09/24/17 04:00 115 09/24/17 00:32 Room Air 09/24/17 00:32 96.7 102 18 105/70 98 Nasal Cannula 09/24/17 00:00 105 09/23/17 20:34 97.5 112 18 132/76 Nasal Cannula 09/23/17 20:34 97 Room Air 09/23/17 20:00 117 09/23/17 16:00 112 09/23/17 16:00 97.7 109 18 113/74 94 Room Air I&O Intake and Output 09/23/17 09/24/17 19:00 07:00 Intake Total 1150.5 ml 1273.0 ml Output Total 600 ml 990 ml Balance 550.5 ml 283.0 ml IV Total 1150.5 ml 1273.0 ml Output Urine Total 600 ml 910 ml Drainage Total 80 ml # Bowel Movements 2 2 Respiratory: clear Abdomen: soft, flat, tenderness, absent bowel sounds Extremities: no tenderness Laboratory Tests Test 09/24/17 05:10 White Blood Count 19.7 K/UL (4.8-10.8) H Red Blood Count 3.82 M/UL (4.20-5.40) L Hemoglobin 11.0 G/DL (12.0-16.0) L Hematocrit 33.3 % (37.0-47.0) L Mean Corpuscular Volume 87 FL (80-99) Mean Corpuscular Hemoglobin 28.9 PG (27.0-31.0) Mean Corpuscular Hemoglobin Concent 33.1 G/DL (32.0-36.0) Red Cell Distribution Width 15.0 % (11.6-14.8) H Platelet Count 441 K/UL (150-450) Mean Platelet Volume 4.4 FL (6.5-10.1) L Neutrophils (%) (Auto) % (45.0-75.0) Lymphocytes (%) (Auto) % (20.0-45.0) Monocytes (%) (Auto) % (1.0-10.0) Eosinophils (%) (Auto) % (0.0-3.0) Basophils (%) (Auto) % (0.0-2.0) Differential Total Cells Counted 100 Neutrophils % (Manual) 96 % (45-75) H Lymphocytes % (Manual) 2 % (20-45) L Monocytes % (Manual) 2 % (1-10) Eosinophils % (Manual) 0 % (0-3) Basophils % (Manual) 0 % (0-2) Band Neutrophils 0 % (0-8) Platelet Estimate Adequate Platelet Morphology Normal Hypochromasia 1+ Anisocytosis 1+ Sodium Level 129 MMOL/L (136-145) L Potassium Level 4.4 MMOL/L (3.5-5.1) Chloride Level 96 MMOL/L (98-107) L Carbon Dioxide Level 29 MMOL/L (21-32) Anion Gap 4 mmol/L (5-15) L Blood Urea Nitrogen 6 mg/dL (7-18) L Creatinine 0.5 MG/DL (0.55-1.30) L Estimat Glomerular Filtration Rate > 60 mL/min (>60) Glucose Level 104 MG/DL (74-106) Calcium Level 8.7 MG/DL (8.5-10.1) Magnesium Level 2.1 MG/DL (1.8-2.4) Iron Level 7 ug/dL (50-175) L Total Iron Binding Capacity 60 ug/dL (250-450) L Percent Iron Saturation 12 % (15-50) L Unsaturated Iron Binding 53 ug/dL (112-346) L Ferritin 386 NG/ML (8-388) Prealbumin Pending Assessment Post-op Diagnosis perforation of cecum and recto-sigmoid Plan Additional Comments continue as before DWAYNE OLIVER Sep 24, 2017 13:40
--- NOTE | 2017-09-24 13:45 | Pulmonology Progress Note ---
Assessment/Plan Assessment/Plan ASSESSMENT Acute abdominal pain 2 to perforation Perforated cecum and rectosigmoid s/p exp laparotomy with partial R hemicolectomy cervical Ca GI bleeding anemia due to acute blood loss severe protein calorie malnutrition PLAN OF CARE tele improving CT A/P with evidence of free air s/p emergent surgery surgery follows IVF NPO Abx, ID follows, urine cx + mixed GPO IS at the bedside and encourage to use q1hr - discussed with pt need to use and rationale fup with CXR Pain management wound care O2 HN prn DVT prophylaxis monitor HH, anemia wup, transfuse to keep Hgb above 8, s/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, nutritional support when start diet keep in tele, tachy, sick case discussed and evaluated by supervising physician Subjective Allergies: Coded Allergies: No Known Allergies (Unverified , 09/10/17) Subjective leukocytosis up today, afebrile pain controlled Objective Last 24 Hour Vital Signs Date Time Temp Pulse Resp B/P (MAP) Pulse Ox O2 Delivery O2 Flow Rate FiO2 09/24/17 12:46 96.4 09/24/17 08:00 97.9 111 18 109/75 98 Nasal Cannula 09/24/17 08:00 107 09/24/17 04:20 96.4 111 18 110/78 98 Nasal Cannula 09/24/17 04:20 Room Air 09/24/17 04:00 115 09/24/17 00:32 Room Air 09/24/17 00:32 96.7 102 18 105/70 98 Nasal Cannula 09/24/17 00:00 105 09/23/17 20:34 97.5 112 18 132/76 Nasal Cannula 09/23/17 20:34 97 Room Air 09/23/17 20:00 117 09/23/17 16:00 112 09/23/17 16:00 97.7 109 18 113/74 94 Room Air Intake and Output 09/23/17 09/24/17 19:00 07:00 Intake Total 1150.5 ml 1273.0 ml Output Total 600 ml 990 ml Balance 550.5 ml 283.0 ml IV Total 1150.5 ml 1273.0 ml Output Urine Total 600 ml 910 ml Drainage Total 80 ml # Bowel Movements 2 2 Objective Status: awake, A/A/O x 3 cachectic female Condition: improving HEENT: atraumatic, normocephalic, NGT intact Neck: full ROM Lungs: clear Heart: HR/BP stable Abdomen: soft abdominal dressing C/D/I ; drain intact Extremities: no C/C/E, SCD on Microbiology Date/Time Source Procedure Growth Status 09/22/17 10:00 Urine,Clean Catch Urine Culture - Final Mixed Gram Positive Organism Complete 09/22/17 15:20 Abdominal Fluid Gram Stain - Final Resulted 09/22/17 15:20 Aerobic Culture - Preliminary Gram Negative Carlos Strep Species, Gamma-Hemolytic Resulted 09/22/17 15:20 Abdominal Fluid Anaerobic Culture Pending Resulted Laboratory Tests 09/24/17 05:10: White Blood Count 19.7H, Red Blood Count 3.82L, Hemoglobin 11.0L, Hematocrit 33.3L, Mean Corpuscular Volume 87, Mean Corpuscular Hemoglobin 28.9, Mean Corpuscular Hemoglobin Concent 33.1, Red Cell Distribution Width 15.0H, Platelet Count 441, Mean Platelet Volume 4.4L, Neutrophils (%) (Auto) , Lymphocytes (%) (Auto) , Monocytes (%) (Auto) , Eosinophils (%) (Auto) , Basophils (%) (Auto) , Differential Total Cells Counted 100, Neutrophils % ( Manual) 96H, Lymphocytes % (Manual) 2L, Monocytes % (Manual) 2, Eosinophils % ( Manual) 0, Basophils % (Manual) 0, Band Neutrophils 0, Platelet Estimate Adequate, Platelet Morphology Normal, Hypochromasia 1+, Anisocytosis 1+, Sodium Level 129L, Potassium Level 4.4, Chloride Level 96L, Carbon Dioxide Level 29, Anion Gap 4L, Blood Urea Nitrogen 6L, Creatinine 0.5L, Estimat Glomerular Filtration Rate > 60, Glucose Level 104, Calcium Level 8.7, Magnesium Level 2.1 , Iron Level 7L, Total Iron Binding Capacity 60L, Percent Iron Saturation 12L, Unsaturated Iron Binding 53L, Ferritin 386, Prealbumin [Pending] Current Medications Medications (Trade) Dose Ordered Sig/Francoise Route PRN Reason Start Time Stop Time Status Last Admin Dose Admin Acetaminophen (Tylenol) 650 mg Q4H PRN RECTAL FEVER 09/23/17 08:00 10/22/17 07:59 Albuterol/ Ipratropium (Albuterol/ Ipratropium) 3 ml Q4H PRN HHN SHORTNESS OF BREATH 09/23/17 11:00 09/28/17 10:59 Chlorhexidine Gluconate (Kenia-Hex 2%) 1 applic DAILY@2000 TOPIC 09/24/17 20:00 10/24/17 19:59 Dextrose/ Electrolytes 1,000 ml @ 100 mls/hr Q10H IV 09/23/17 08:30 10/22/17 08:29 09/24/17 03:30 Heparin Sodium (Porcine) (Heparin 5000 units/ml) 5,000 units EVERY 12 HOURS SUBQ 09/23/17 09:00 10/23/17 08:59 09/24/17 08:18 Hydromorphone HCl (Dilaudid) 0.5 mg Q3H PRN IVP Pain Score 1-3 09/23/17 07:45 09/29/17 19:43 Hydromorphone HCl (Dilaudid) 1 mg Q3H PRN IVP pain score 4-6 09/23/17 07:45 09/29/17 19:43 Hydromorphone HCl (Dilaudid) 3 mg Q2H PRN IVP pain score 7-10 09/23/17 08:00 09/30/17 07:59 09/24/17 12:16 Lorazepam (Ativan) 1 mg Q6H PRN ORAL For Anxiety 09/23/17 08:00 09/29/17 07:59 Ondansetron HCl (Zofran) 4 mg Q6H PRN IVP Nausea & Vomiting 09/23/17 08:00 10/22/17 07:59 Pantoprazole (Protonix) 40 mg DAILY IVP 09/23/17 09:00 10/23/17 08:59 09/24/17 08:10 Piperacillin Sod/ Tazobactam Sod 3.375 gm/Dextrose 110 ml @ 27.5 mls/hr Q8H IVPB 09/23/17 08:00 10/01/17 07:59 09/24/17 08:10 Nikole Hodges NP (Vanchtein) Sep 24, 2017 13:45
--- NOTE | 2017-09-24 14:11 | Consultation ---
History of Present Illness General Date patient seen: Sep 24, 2017 Present Illness Allergies: Coded Allergies: No Known Allergies (Unverified , 09/10/17) Medication History Scheduled PRN Oxycodone Hcl/Acetaminophen 10-325* (Oxycodone-Acetaminophen 10-325*), 1 TAB ORAL Q6H PRN for For Pain, (Reported) Patient History Healthcare decision maker Milagro Connolly Resuscitation status Full Code Advanced Directive on File No Physical Exam Last 24 Hour Vital Signs Date Time Temp Pulse Resp B/P (MAP) Pulse Ox O2 Delivery O2 Flow Rate FiO2 09/24/17 12:46 96.4 09/24/17 08:00 97.9 111 18 109/75 98 Nasal Cannula 09/24/17 08:00 107 09/24/17 04:20 96.4 111 18 110/78 98 Nasal Cannula 09/24/17 04:20 Room Air 09/24/17 04:00 115 09/24/17 00:32 Room Air 09/24/17 00:32 96.7 102 18 105/70 98 Nasal Cannula 09/24/17 00:00 105 09/23/17 20:34 97.5 112 18 132/76 Nasal Cannula 09/23/17 20:34 97 Room Air 09/23/17 20:00 117 09/23/17 16:00 112 09/23/17 16:00 97.7 109 18 113/74 94 Room Air Intake and Output 09/23/17 09/24/17 19:00 07:00 Intake Total 1150.5 ml 1273.0 ml Output Total 600 ml 990 ml Balance 550.5 ml 283.0 ml IV Total 1150.5 ml 1273.0 ml Output Urine Total 600 ml 910 ml Drainage Total 80 ml # Bowel Movements 2 2 Laboratory Tests Test 09/24/17 05:10 White Blood Count 19.7 K/UL (4.8-10.8) H Red Blood Count 3.82 M/UL (4.20-5.40) L Hemoglobin 11.0 G/DL (12.0-16.0) L Hematocrit 33.3 % (37.0-47.0) L Mean Corpuscular Volume 87 FL (80-99) Mean Corpuscular Hemoglobin 28.9 PG (27.0-31.0) Mean Corpuscular Hemoglobin Concent 33.1 G/DL (32.0-36.0) Red Cell Distribution Width 15.0 % (11.6-14.8) H Platelet Count 441 K/UL (150-450) Mean Platelet Volume 4.4 FL (6.5-10.1) L Neutrophils (%) (Auto) % (45.0-75.0) Lymphocytes (%) (Auto) % (20.0-45.0) Monocytes (%) (Auto) % (1.0-10.0) Eosinophils (%) (Auto) % (0.0-3.0) Basophils (%) (Auto) % (0.0-2.0) Differential Total Cells Counted 100 Neutrophils % (Manual) 96 % (45-75) H Lymphocytes % (Manual) 2 % (20-45) L Monocytes % (Manual) 2 % (1-10) Eosinophils % (Manual) 0 % (0-3) Basophils % (Manual) 0 % (0-2) Band Neutrophils 0 % (0-8) Platelet Estimate Adequate Platelet Morphology Normal Hypochromasia 1+ Anisocytosis 1+ Sodium Level 129 MMOL/L (136-145) L Potassium Level 4.4 MMOL/L (3.5-5.1) Chloride Level 96 MMOL/L (98-107) L Carbon Dioxide Level 29 MMOL/L (21-32) Anion Gap 4 mmol/L (5-15) L Blood Urea Nitrogen 6 mg/dL (7-18) L Creatinine 0.5 MG/DL (0.55-1.30) L Estimat Glomerular Filtration Rate > 60 mL/min (>60) Glucose Level 104 MG/DL (74-106) Calcium Level 8.7 MG/DL (8.5-10.1) Magnesium Level 2.1 MG/DL (1.8-2.4) Iron Level 7 ug/dL (50-175) L Total Iron Binding Capacity 60 ug/dL (250-450) L Percent Iron Saturation 12 % (15-50) L Unsaturated Iron Binding 53 ug/dL (112-346) L Ferritin 386 NG/ML (8-388) Prealbumin Pending Height (Feet): 5 Height (Inches): 3.00 Weight (Pounds): 72 Medications Current Medications Medications (Trade) Dose Ordered Sig/Francoise Route PRN Reason Start Time Stop Time Status Last Admin Dose Admin Acetaminophen (Tylenol) 650 mg Q4H PRN RECTAL FEVER 09/23/17 08:00 10/22/17 07:59 Albuterol/ Ipratropium (Albuterol/ Ipratropium) 3 ml Q4H PRN HHN SHORTNESS OF BREATH 09/23/17 11:00 09/28/17 10:59 Chlorhexidine Gluconate (Kenia-Hex 2%) 1 applic DAILY@2000 TOPIC 09/24/17 20:00 10/24/17 19:59 Dextrose/ Electrolytes 1,000 ml @ 100 mls/hr Q10H IV 09/23/17 08:30 10/22/17 08:29 09/24/17 03:30 Heparin Sodium (Porcine) (Heparin 5000 units/ml) 5,000 units EVERY 12 HOURS SUBQ 09/23/17 09:00 10/23/17 08:59 09/24/17 08:18 Hydromorphone HCl (Dilaudid) 0.5 mg Q3H PRN IVP Pain Score 1-3 09/23/17 07:45 09/29/17 19:43 Hydromorphone HCl (Dilaudid) 1 mg Q3H PRN IVP pain score 4-6 09/23/17 07:45 09/29/17 19:43 Hydromorphone HCl (Dilaudid) 3 mg Q2H PRN IVP pain score 7-10 09/23/17 08:00 09/30/17 07:59 09/24/17 12:16 Lorazepam (Ativan) 1 mg Q6H PRN ORAL For Anxiety 09/23/17 08:00 09/29/17 07:59 Ondansetron HCl (Zofran) 4 mg Q6H PRN IVP Nausea & Vomiting 09/23/17 08:00 10/22/17 07:59 Pantoprazole (Protonix) 40 mg DAILY IVP 09/23/17 09:00 10/23/17 08:59 09/24/17 08:10 Piperacillin Sod/ Tazobactam Sod 3.375 gm/Dextrose 110 ml @ 27.5 mls/hr Q8H IVPB 09/23/17 08:00 10/01/17 07:59 09/24/17 08:10 Assessment/Plan Assessment/Plan (1) Intractable abdominal pain (2) Perforation of the cecum and the rectosigmoid (3) S/p Exploratory laparotomy and lysis of the adhesion (4) Partial right hemicolectomy with primary anastomosis (5) Resection of the rectosigmoid with Katerina pouch and colostomy (6) Cervical cancer seen dictated. ROSA MARIA MELGAR Sep 24, 2017 14:11
[2017-09-24] MEDS ORDERED: Gentamicin Rx monitoring MISC PRN (15:15)
[2017-09-24 16:00] VITALS: BP 111/79
--- NOTE | 2017-09-24 16:58 | Cardiology Progress Note ---
Assessment/Plan Assessment/Plan The patient is seen and examined, full consult note is dictated. Objective Last 24 Hour Vital Signs Date Time Temp Pulse Resp B/P (MAP) Pulse Ox O2 Delivery O2 Flow Rate FiO2 09/24/17 15:08 96.4 09/24/17 12:00 106 09/24/17 08:00 97.9 111 18 109/75 98 Nasal Cannula 09/24/17 08:00 107 09/24/17 04:20 96.4 111 18 110/78 98 Nasal Cannula 09/24/17 04:20 Room Air 09/24/17 04:00 115 09/24/17 00:32 Room Air 09/24/17 00:32 96.7 102 18 105/70 98 Nasal Cannula 09/24/17 00:00 105 09/23/17 20:34 97.5 112 18 132/76 Nasal Cannula 09/23/17 20:34 97 Room Air 09/23/17 20:00 117 Intake and Output 09/23/17 09/24/17 19:00 07:00 Intake Total 1150.5 ml 1273.0 ml Output Total 600 ml 990 ml Balance 550.5 ml 283.0 ml IV Total 1150.5 ml 1273.0 ml Output Urine Total 600 ml 910 ml Drainage Total 80 ml # Bowel Movements 2 2 Laboratory Tests Test 09/24/17 05:10 White Blood Count 19.7 K/UL (4.8-10.8) H Red Blood Count 3.82 M/UL (4.20-5.40) L Hemoglobin 11.0 G/DL (12.0-16.0) L Hematocrit 33.3 % (37.0-47.0) L Mean Corpuscular Volume 87 FL (80-99) Mean Corpuscular Hemoglobin 28.9 PG (27.0-31.0) Mean Corpuscular Hemoglobin Concent 33.1 G/DL (32.0-36.0) Red Cell Distribution Width 15.0 % (11.6-14.8) H Platelet Count 441 K/UL (150-450) Mean Platelet Volume 4.4 FL (6.5-10.1) L Neutrophils (%) (Auto) % (45.0-75.0) Lymphocytes (%) (Auto) % (20.0-45.0) Monocytes (%) (Auto) % (1.0-10.0) Eosinophils (%) (Auto) % (0.0-3.0) Basophils (%) (Auto) % (0.0-2.0) Differential Total Cells Counted 100 Neutrophils % (Manual) 96 % (45-75) H Lymphocytes % (Manual) 2 % (20-45) L Monocytes % (Manual) 2 % (1-10) Eosinophils % (Manual) 0 % (0-3) Basophils % (Manual) 0 % (0-2) Band Neutrophils 0 % (0-8) Platelet Estimate Adequate Platelet Morphology Normal Hypochromasia 1+ Anisocytosis 1+ Sodium Level 129 MMOL/L (136-145) L Potassium Level 4.4 MMOL/L (3.5-5.1) Chloride Level 96 MMOL/L (98-107) L Carbon Dioxide Level 29 MMOL/L (21-32) Anion Gap 4 mmol/L (5-15) L Blood Urea Nitrogen 6 mg/dL (7-18) L Creatinine 0.5 MG/DL (0.55-1.30) L Estimat Glomerular Filtration Rate > 60 mL/min (>60) Glucose Level 104 MG/DL (74-106) Calcium Level 8.7 MG/DL (8.5-10.1) Magnesium Level 2.1 MG/DL (1.8-2.4) Iron Level 7 ug/dL (50-175) L Total Iron Binding Capacity 60 ug/dL (250-450) L Percent Iron Saturation 12 % (15-50) L Unsaturated Iron Binding 53 ug/dL (112-346) L Ferritin 386 NG/ML (8-388) Prealbumin Pending Microbiology Date/Time Source Procedure Growth Status 09/22/17 10:00 Urine,Clean Catch Urine Culture - Final Mixed Gram Positive Organism Complete 09/22/17 15:20 Abdominal Fluid Gram Stain - Final Resulted 09/22/17 15:20 Aerobic Culture - Preliminary Gram Negative Carlos Strep Species, Gamma-Hemolytic Resulted 09/22/17 15:20 Abdominal Fluid Anaerobic Culture Pending Resulted JUDITH WATSON Sep 24, 2017 16:58
[2017-09-24] MEDS ORDERED: GENTAMICIN IVPB SCH (17:00)
[2017-09-24] MEDS ORDERED: Gentamicin inj 160 MG in NS 110 ML IVPB SCH (18:00)
[2017-09-24] MEDS ORDERED: Dyna-Hex 2% Top Sol 2oz TOPIC SCH (20:00)
--- NOTE | 2017-09-24 20:34 | General Progress Note ---
Assessment/Plan Assessment/Plan Assessment and Recs: # Leukocytosis is likely reactive from Acute abdominal pain 2 to perforation with perforated cecum and rectosigmoid s/p exp laparotomy with partial R hemicolectomy # Cervical Ca s/p surgery and radiation, has not received any chemotherapy recently # Anemia of chronic disease --> w/u has been reviewed --> hgb goal is >7 # Thrombocytosis is likely related to chronic reactive process --> currently imporved # Anemia of GI bleeding # Severe protein calorie malnutrition Subjective Constitutional: Reports: no symptoms Cardiovascular: Reports: no symptoms Respiratory: Reports: orthopnea Gastrointestinal/Abdominal: Reports: no symptoms Genitourinary: Reports: no symptoms Neurologic/Psychiatric: Reports: no symptoms Endocrine: Reports: no symptoms Hematologic/Lymphatic: Reports: anemia Allergies: Coded Allergies: No Known Allergies (Unverified , 09/10/17) Subjective no events, tired Objective Last 24 Hour Vital Signs Date Time Temp Pulse Resp B/P (MAP) Pulse Ox O2 Delivery O2 Flow Rate FiO2 09/24/17 16:00 96.1 110 18 111/79 98 Nasal Cannula 2.0 09/24/17 16:00 121 09/24/17 15:08 96.4 09/24/17 12:00 106 09/24/17 12:00 96.6 110 18 113/67 97 Nasal Cannula 09/24/17 08:00 97.9 111 18 109/75 98 Nasal Cannula 09/24/17 08:00 107 09/24/17 04:20 96.4 111 18 110/78 98 Nasal Cannula 09/24/17 04:20 Room Air 09/24/17 04:00 115 09/24/17 00:32 Room Air 09/24/17 00:32 96.7 102 18 105/70 98 Nasal Cannula 09/24/17 00:00 105 09/23/17 20:34 97.5 112 18 132/76 Nasal Cannula 09/23/17 20:34 97 Room Air Intake and Output 09/23/17 09/24/17 19:00 07:00 Intake Total 1150.5 ml 1273.0 ml Output Total 600 ml 990 ml Balance 550.5 ml 283.0 ml IV Total 1150.5 ml 1273.0 ml Output Urine Total 600 ml 910 ml Drainage Total 80 ml # Bowel Movements 2 2 Laboratory Tests 09/24/17 05:10: White Blood Count 19.7H, Red Blood Count 3.82L, Hemoglobin 11.0L, Hematocrit 33.3L, Mean Corpuscular Volume 87, Mean Corpuscular Hemoglobin 28.9, Mean Corpuscular Hemoglobin Concent 33.1, Red Cell Distribution Width 15.0H, Platelet Count 441, Mean Platelet Volume 4.4L, Neutrophils (%) (Auto) , Lymphocytes (%) (Auto) , Monocytes (%) (Auto) , Eosinophils (%) (Auto) , Basophils (%) (Auto) , Differential Total Cells Counted 100, Neutrophils % ( Manual) 96H, Lymphocytes % (Manual) 2L, Monocytes % (Manual) 2, Eosinophils % ( Manual) 0, Basophils % (Manual) 0, Band Neutrophils 0, Platelet Estimate Adequate, Platelet Morphology Normal, Hypochromasia 1+, Anisocytosis 1+, Sodium Level 129L, Potassium Level 4.4, Chloride Level 96L, Carbon Dioxide Level 29, Anion Gap 4L, Blood Urea Nitrogen 6L, Creatinine 0.5L, Estimat Glomerular Filtration Rate > 60, Glucose Level 104, Calcium Level 8.7, Magnesium Level 2.1 , Iron Level 7L, Total Iron Binding Capacity 60L, Percent Iron Saturation 12L, Unsaturated Iron Binding 53L, Ferritin 386, Prealbumin [Pending] Height (Feet): 5 Height (Inches): 3.00 Weight (Pounds): 72 General Appearance: no apparent distress EENT: TMs normal Neck: supple Cardiovascular: no gallop/murmur Respiratory/Chest: normal breath sounds Abdomen: non tender Extremities: normal range of motion Chris Spencer Sep 24, 2017 20:34
--- NOTE | 2017-09-24 21:30 | Consultation ---
DATE OF CONSULTATION: 09/24/2017 INFECTIOUS DISEASES CONSULTATION CONSULTING PHYSICIAN: Marco Dunbar M.D. PRIMARY ATTENDING PHYSICIAN: Dano Guillaume D.O. REASON FOR CONSULTATION: Bowel perforation, peritonitis. HISTORY OF PRESENT ILLNESS: The patient is a 32-year-old female admitted on 09/22/2017, complaining of nausea, vomiting, abdominal pain, diarrhea, and blood in the stool. CT scan showed patient has free air in abdomen with impression of hollow viscus perforation. The patient went to OR on date of admission and had exploratory laparotomy. There was a perforated cecum and partial perforated rectosigmoid. The patient had partial right hemicolectomy with lysis of adhesion and resection of the rectosigmoid with Katerina pouch and colostomy. PAST MEDICAL HISTORY: History of cervical cancer since 09/2015, was on chemotherapy, had a previous admission to [facility] between 09/10/2017 and 09/14/2017 because of GI bleeding, has anemia that required blood transfusion, and has cachexia. MEDICATIONS: Chlorhexidine, albuterol, ipratropium inhaler, heparin, Protonix, Zosyn, hydromorphone, Zofran. ALLERGIES: No known drug allergies. SOCIAL HISTORY: She has three kids. No history of alcohol, drug abuse, or smoking. REVIEW OF SYSTEMS: No fever. No chills. Complains of abdominal pain. PHYSICAL EXAMINATION: VITAL SIGNS: Temperature 96.4, pulse 111, blood pressure 109/75. BMI is 12.8. GENERAL APPEARANCE: Very thin and cachectic. HEAD AND NECK: Gypsy conjunctivae. She has NG tube to suction. HEART: S1 and S2 regular. LUNGS: Clear. ABDOMEN: She has colostomy in place. There is midline surgical dressing. EXTREMITIES: No edema. LINES: The patient has right internal jugular central line. LABORATORY AND DIAGNOSTIC DATA: WBC is going up, 19.6 today, hemoglobin 11, hematocrit 33.3, and platelet is 441,000. Sodium 129, potassium 4.4, chloride 96, bicarbonate 26, BUN 6, creatinine 0.5, and glucose is 104. Abdominal fluid culture growing gram-negative rods, strep gamma hemolytic. Final cultures are pending. IMPRESSION: Acute abdomen with perforated cecum and rectosigmoid. The patient has peritonitis, is status post partial right hemicolectomy with lysis of adhesion, resection of rectosigmoid with Katerina pouch and colostomy, has hyponatremia, anemia, and cervical cancer. RECOMMENDATION: Continue with Zosyn. We will follow up the cultures. At the end of my exam, I thank Dr. Dano Guillaume for involving me in the care of this patient. Marco Dunbar M.D. DR: LORRIE JOB#: [id number] CC: MARILYN
--- NOTE | 2017-09-24 22:28 | General Progress Note ---
Assessment/Plan Problem List: (1) Anemia ICD Codes: D64.9 - Anemia, unspecified SNOMED: 178912502 Qualifiers: Qualified Codes: D64.9 - Anemia, unspecified (2) Abdominal pain ICD Codes: R10.9 - Unspecified abdominal pain SNOMED: 26857990 Qualifiers: Qualified Codes: R10.13 - Epigastric pain (3) Intra-abdominal free air of unknown etiology ICD Codes: K66.8 - Other specified disorders of peritoneum SNOMED: 03068739 (4) Perforated sigmoid colon ICD Codes: K63.1 - Perforation of intestine (nontraumatic) SNOMED: 541914337 (5) Perforation of cecum ICD Codes: K63.1 - Perforation of intestine (nontraumatic) SNOMED: 939441670 Assessment/Plan cervical cancer s/p perforated viscus repair afebrile treatment per surgeon Subjective ROS Limited/Unobtainable: Yes Allergies: Coded Allergies: No Known Allergies (Unverified , 09/10/17) Subjective abd pain Objective Last 24 Hour Vital Signs Date Time Temp Pulse Resp B/P (MAP) Pulse Ox O2 Delivery O2 Flow Rate FiO2 09/24/17 16:00 96.1 110 18 111/79 98 Nasal Cannula 2.0 09/24/17 16:00 121 09/24/17 15:08 96.4 09/24/17 12:00 106 09/24/17 12:00 96.6 110 18 113/67 97 Nasal Cannula 09/24/17 08:00 97.9 111 18 109/75 98 Nasal Cannula 09/24/17 08:00 107 09/24/17 04:20 96.4 111 18 110/78 98 Nasal Cannula 09/24/17 04:20 Room Air 09/24/17 04:00 115 09/24/17 00:32 Room Air 09/24/17 00:32 96.7 102 18 105/70 98 Nasal Cannula 09/24/17 00:00 105 Intake and Output 09/23/17 09/24/17 19:00 07:00 Intake Total 1150.5 ml 1273.0 ml Output Total 600 ml 990 ml Balance 550.5 ml 283.0 ml IV Total 1150.5 ml 1273.0 ml Output Urine Total 600 ml 910 ml Drainage Total 80 ml # Bowel Movements 2 2 Laboratory Tests 09/24/17 05:10: White Blood Count 19.7H, Red Blood Count 3.82L, Hemoglobin 11.0L, Hematocrit 33.3L, Mean Corpuscular Volume 87, Mean Corpuscular Hemoglobin 28.9, Mean Corpuscular Hemoglobin Concent 33.1, Red Cell Distribution Width 15.0H, Platelet Count 441, Mean Platelet Volume 4.4L, Neutrophils (%) (Auto) , Lymphocytes (%) (Auto) , Monocytes (%) (Auto) , Eosinophils (%) (Auto) , Basophils (%) (Auto) , Differential Total Cells Counted 100, Neutrophils % ( Manual) 96H, Lymphocytes % (Manual) 2L, Monocytes % (Manual) 2, Eosinophils % ( Manual) 0, Basophils % (Manual) 0, Band Neutrophils 0, Platelet Estimate Adequate, Platelet Morphology Normal, Hypochromasia 1+, Anisocytosis 1+, Sodium Level 129L, Potassium Level 4.4, Chloride Level 96L, Carbon Dioxide Level 29, Anion Gap 4L, Blood Urea Nitrogen 6L, Creatinine 0.5L, Estimat Glomerular Filtration Rate > 60, Glucose Level 104, Calcium Level 8.7, Magnesium Level 2.1 , Iron Level 7L, Total Iron Binding Capacity 60L, Percent Iron Saturation 12L, Unsaturated Iron Binding 53L, Ferritin 386, Prealbumin [Pending] Height (Feet): 5 Height (Inches): 3.00 Weight (Pounds): 72 Abdomen: tender Nadia Blackmon MD Sep 24, 2017 22:28
--- NOTE | 2017-09-24 23:00 | Consultation ---
DATE OF CONSULTATION: 09/24/2017 PAIN MANAGEMENT CONSULTATION CONSULTING PHYSICIAN: Grant Ochoa M.D. REFERRING PHYSICIAN: Nadia Blackmon M.D. PHYSICIAN CERTIFIED VETERINARY TECHNICIAN: Virginie Rudd CHIEF COMPLAINT: Abdominal pain. HISTORY OF PRESENT ILLNESS: This is a 32-year-old female, who is being seen on the telemetry floor of [facility] for comprehensive pain management consultation. The patient is a known patient from prior admission now returned due to severe abdominal pain and found to have perforated bowel and is status post exploratory laparotomy and lysis of adhesion, partial right hemicolectomy and primary anastomosis, and resection of rectosigmoid colon with colostomy placement. At this time, the patient is in bed with NG tube inserted and complaining of severe abdominal pain and started her on Dilaudid 0.5 mg IV every 3 hours as needed for mild pain and Dilaudid 1 mg IV every 3 hours as needed for moderate pain and Dilaudid 3 mg IV every 2 hours as needed for severe pain. The patient at this time reports that the Dilaudid 3 mg has been helping to relieve her pain having used 11 doses in the last 24 hours reporting that her pain is reduced from 9 to 2/10. We were consulted so that the patient would have adequate pain control while here in the hospital. PAST MEDICAL HISTORY: Cervical cancer and anemia. PAST SURGICAL HISTORY: Hysterectomy. MEDICATIONS: Percocet. ALLERGIES: No known drug allergies. SOCIAL HISTORY: Denies smoking tobacco, drinking alcohol, or drug abuse. REVIEW OF SYSTEMS: Denies rash, fever, chills, sweating, dizziness, drowsiness, blurred vision, sore throat, or change in her weight. Denies change in hearing, however, does report a weight loss of 35 pounds since May. No bowel or bladder incontinence at this time. No dysuria. She is complaining of severe abdominal pain. PHYSICAL EXAMINATION: GENERAL: Alert, awake, and oriented. VITAL SIGNS: Blood pressure 109/74, heart rate is 111, oxygen saturation 98%, respirations 18, and temperature 97.9 degrees Fahrenheit. HEENT: PERRLA. NECK: Range of motion is full in all directions. No tenderness to paracervical muscles. No adenopathy. LUNGS: Decreased breath sounds bilaterally. ABDOMEN: Surgical wounds with bandages applied. Colostomy bag noted with tenderness to palpation. BACK: Range of motion is decreased in flexion and extension. EXTREMITIES: No cyanosis and no clubbing. NEUROLOGIC: Generalized weakness noted. ASSESSMENT AND PLAN: This is a 32-year-old female with cervical cancer, intractable abdominal pain, perforated cecum, and rectosigmoid colon status post exploratory laparotomy, lysis of adhesions, partial right hemicolectomy and primary anastomosis, resection of the rectosigmoid, and colostomy placement. The patient will continue on Dilaudid as needed for mild, moderate, and severe pain. Parameters will be set to hold Dilaudid for oversedation for systolic blood pressure below 90 or diastolic blood pressure below 60 or respiratory rate below 12 or oxygen saturation below 92%. The patient was discussed with Dr. Ochoa and Dr. Ochoa concurred. We will follow the patient. Thank you very much for the courtesy of this consultation. Grant Ochoa M.D. SLOANE Rudd DR: YOU JOB#: [id number] CC:
--- NOTE | 2017-09-24 23:15 | Consultation ---
DATE OF CONSULTATION: 09/24/2017 CARDIOLOGY CONSULTATION CONSULTING PHYSICIAN: Armani Ingram M.D. REFERRING PHYSICIAN: Nadia Blackmon M.D REASON FOR CONSULTATION: Management of tachycardia. HISTORY OF PRESENT ILLNESS: The patient is a very unfortunate 32-year-old female, who was brought down to this facility for evaluation of centralized abdominal pain, associated diarrhea, and recurring blood in stool. The patient did not have any fever, chills, nausea, or vomiting. She has history of cervical cancer and has been off chemotherapy for about a month. She had been admitted to this facility with similar episodes requiring blood transfusions. At the time of arrival to the hospital, she was hypotensive with blood pressure 97/57 mmHg and tachycardia with heart rate of 120 beats per minute. She was admitted to telemetry for further evaluation and management. Cardiology consultation was made at request of Dr. Blackmon for management and evaluation of tachycardia. The patient denies any prior history of coronary artery disease, congestive heart failure, or cardiac arrhythmias. She denies any palpitations, dizziness, or lightheadedness. She currently has NG tube that is suctioning the gastric aspirates. She states that she feels hungry. IV fluid is running at 100 mL/hour at this time. PAST MEDICAL HISTORY: Cervical cancer, history of anemia requiring blood transfusion. PAST SURGICAL HISTORY: None. MEDICATIONS: List of medications including oxycodone and acetaminophen 10/325 mg one tablet p.o. q.6 h. p.r.n. pain. SOCIAL HISTORY: Denies any tobacco, alcohol, or illicit drug use. ALLERGIES: No known drug allergies. REVIEW OF SYSTEMS: A 12-system review done essentially negative except what mentioned in the history of present illness. PHYSICAL EXAMINATION: VITAL SIGNS: Blood pressure was 97/57, respirations 14, pulse of 120, temperature 98.4 degrees Fahrenheit, and O2 saturation 99% on room air. GENERAL: The patient is a very unfortunate 32-year-old emaciated lady, in no apparent respiratory distress, presents with an NG-tube. HEENT: Atraumatic and normocephalic. Anicteric. Pupils are equal, round, and reactive to light and accommodation. There is conjunctival pallor. NECK: JVP less than 5 cm. No carotid bruit. Carotid upstrokes 2+ bilaterally. CARDIOVASCULAR: Normal S1 and S2. Regular rate and rhythm. Tachycardic. No murmurs, gallops, or rubs. LUNGS: Clear to auscultation bilaterally. ABDOMEN: Soft, nontender, and nondistended. No hepatosplenomegaly. Positive bowel sounds. EXTREMITIES: No evidence of edema, clubbing, or cyanosis. LABORATORY AND DIAGNOSTIC DATA: Chest x-ray showed no acute cardiopulmonary disease, right jugular vein catheter is in the superior vena cava. NG tube in the stomach. Laboratory Findings, WBC is 4.4, hemoglobin of 7.3, hematocrit of 33.1, and platelet counts is 673. Sodium is 134, potassium is 3.9, chloride 97, bicarbonate 29, BUN of 17, creatinine 0.5, glucose is 120, calcium is 9.2. INR is 1.1. A 12-lead electrocardiogram shows sinus tachycardia at a rate of 114 with rightward axis. There is no acute ischemic changes. QT interval 463, which is considered to be borderline prolonged. ASSESSMENT AND PLAN: The patient is a very unfortunate 32-year-old female, seen in Cardiology consultation at request of Dr. Blackmon. 1. Sinus tachycardia, most likely due to volume depletion. The patient will require to be on D5 normal saline for intravascular volume expansion that may help with her tachycardia as well. 2. The patient also requested to receive blood transfusion given hemoglobin and hematocrit values on admission. No AV jayda agents required at this time in view of her low blood pressure. 3. Hypotension. This is again due to intravascular volume depression that may respond well to combination of blood transfusion as well as isotonic and saline solution. 4. History of cervical cancer, status post chemotherapy. I would like to thank Dr. Blackmon for allowing me to participate in care of this patient. Armani Ingram M.D. DR: Kimberly JOB#: [id number] CC:
--- NOTE | 2017-09-25 | General Progress Note ---
Assessment/Plan Assessment/Plan Assessment and Recs: # Leukocytosis is likely reactive from Acute abdominal pain 2 to perforation with perforated cecum and rectosigmoid s/p exp laparotomy with partial R hemicolectomy --> Monitor wbc count # Cervical Ca s/p surgery and radiation, has not received any chemotherapy recently # Anemia of chronic disease --> w/u has been reviewed --> hgb goal is >7 # Thrombocytosis is likely related to chronic reactive process --> currently improved # Anemia of GI bleeding --> GI followup. # Severe protein calorie malnutrition Subjective Date patient seen: Sep 23, 2017 Constitutional: Denies: no symptoms, chills, diaphoresis, fever, malaise, weakness, other HEENT: Denies: no symptoms, eye pain, blurred vision, tearing, double vision, ear pain, ear discharge, nose pain, nose congestion, throat pain, throat swelling, mouth pain, mouth swelling, other Cardiovascular: Denies: no symptoms, chest pain, edema, irregular heart rate, lightheadedness, palpitations, syncope, other Respiratory: Denies: no symptoms, cough, orthopnea, shortness of breath, SOB with excertion, SOB at rest, sputum, stridor, wheezing, other Gastrointestinal/Abdominal: Denies: no symptoms, abdomen distended, abdominal pain, black stools, tarry stools, blood in stool, constipated, diarrhea, difficulty swallowing, nausea, poor appetite, poor fluid intake, rectal bleeding , vomiting, other Genitourinary: Denies: no symptoms, burning, discharge, frequency, flank pain, hematuria, incontinence, pain, urgency, other Allergies: Coded Allergies: No Known Allergies (Unverified , 09/10/17) Subjective No new events overnight. H/H stable. Wbc high Objective Last 24 Hour Vital Signs Date Time Temp Pulse Resp B/P (MAP) Pulse Ox O2 Delivery O2 Flow Rate FiO2 09/24/17 16:00 96.1 110 18 111/79 98 Nasal Cannula 2.0 09/24/17 16:00 121 09/24/17 15:08 96.4 09/24/17 12:00 106 09/24/17 12:00 96.6 110 18 113/67 97 Nasal Cannula 09/24/17 08:00 97.9 111 18 109/75 98 Nasal Cannula 09/24/17 08:00 107 09/24/17 04:20 96.4 111 18 110/78 98 Nasal Cannula 09/24/17 04:20 Room Air 09/24/17 04:00 115 09/24/17 00:32 Room Air 09/24/17 00:32 96.7 102 18 105/70 98 Nasal Cannula 09/24/17 00:00 105 Intake and Output 09/23/17 09/24/17 19:00 07:00 Intake Total 1150.5 ml 1273.0 ml Output Total 600 ml 990 ml Balance 550.5 ml 283.0 ml IV Total 1150.5 ml 1273.0 ml Output Urine Total 600 ml 910 ml Drainage Total 80 ml # Bowel Movements 2 2 Laboratory Tests 09/24/17 05:10: White Blood Count 19.7H, Red Blood Count 3.82L, Hemoglobin 11.0L, Hematocrit 33.3L, Mean Corpuscular Volume 87, Mean Corpuscular Hemoglobin 28.9, Mean Corpuscular Hemoglobin Concent 33.1, Red Cell Distribution Width 15.0H, Platelet Count 441, Mean Platelet Volume 4.4L, Neutrophils (%) (Auto) , Lymphocytes (%) (Auto) , Monocytes (%) (Auto) , Eosinophils (%) (Auto) , Basophils (%) (Auto) , Differential Total Cells Counted 100, Neutrophils % ( Manual) 96H, Lymphocytes % (Manual) 2L, Monocytes % (Manual) 2, Eosinophils % ( Manual) 0, Basophils % (Manual) 0, Band Neutrophils 0, Platelet Estimate Adequate, Platelet Morphology Normal, Hypochromasia 1+, Anisocytosis 1+, Sodium Level 129L, Potassium Level 4.4, Chloride Level 96L, Carbon Dioxide Level 29, Anion Gap 4L, Blood Urea Nitrogen 6L, Creatinine 0.5L, Estimat Glomerular Filtration Rate > 60, Glucose Level 104, Calcium Level 8.7, Magnesium Level 2.1 , Iron Level 7L, Total Iron Binding Capacity 60L, Percent Iron Saturation 12L, Unsaturated Iron Binding 53L, Ferritin 386, Prealbumin [Pending] Height (Feet): 5 Height (Inches): 3.00 Weight (Pounds): 72 Chris Spencer Sep 25, 2017 00:00
[2017-09-25 00:05] VITALS: BP 111/79
[2017-09-25] MEDS: Piperacillin/Tazobactam 3.375 GM in D5W 110 ML IVPB SCH ×2 (01:26→09:48)
[2017-09-25] MEDS: D5 1/2NS w/KCl 20mEq 1,000 ML IV SCH ×3 (01:26→17:33)
[2017-09-25 04:00] VITALS: BP 110/79
[2017-09-25 05:22] LABS: HEMATOCRIT 35.4 % (37.0-47.0); HEMOGLOBIN 11.6 G/DL (12.0-16.0); MEAN CORPUSCULAR VOLUME 87 FL (80-99); PLATELET COUNT 449 K/UL (150-450); RED BLOOD COUNT 4.05 M/UL (4.20-5.40); RED CELL DISTRIBUTION WIDTH 15.4 % (11.6-14.8)
[2017-09-25 05:35] LABS: ANION GAP 6 mmol/L (5-15); BLOOD UREA NITROGEN 3 mg/dL (7-18); CALCIUM 8.8 MG/DL (8.5-10.1); CARBON DIOXIDE 30 MMOL/L (21-32); CHLORIDE 95 MMOL/L (98-107); CREATININE 0.5 MG/DL (0.55-1.30); POTASSIUM 4.1 MMOL/L (3.5-5.1); SODIUM 131 MMOL/L (136-145)
--- NOTE | 2017-09-25 07:30 | Consultation ---
DATE OF CONSULTATION: 09/22/2017 NOTE: "POOR AUDIO" HEMATOLOGY/ONCOLOGY CONSULTATION CONSULTING PHYSICIAN: Chris Spencer M.D. REQUESTING PHYSICIAN: Dano Guillaume D.O. REASON FOR CONSULTATION: Evaluation of progressive anemia as well as leukopenia. IDENTIFYING DATA: Dear Dr. Dano Guillaume, The patient is a 32-year-old female with a history of cervical cancer, status post chemotherapy and radiation, currently on chemotherapy, 00:34 the last month, continued to follow up with Radiation Oncology 00:38 Medicine evaluation. The patient otherwise at this time does not have any complaints. I have seen her again earlier this month. At this time, she presents with intractable nausea and vomiting, seen in the ER, and seen by Surgical, noted to have air in the abdomen, hollow viscus, and consent placed for evaluation of exploratory laparotomy. The patient with sharp abdominal pain since last evening, recurrent, blood noted in the stool, has again been on and off chemotherapy over the last month, taking 01:25 requiring blood transfusion. Hemoglobin remained low. Hematology Service consulted for further evaluation and treatment. She does not appear to have any recent colonoscopy. PAST MEDICAL HISTORY: As noted above, cervical cancer. PAST SURGICAL HISTORY: Besides gynecological surgery, none reported. ALLERGIES: No known drug allergies. SOCIAL HISTORY: No alcohol, tobacco, or illicit drug use. , never. REVIEW OF SYSTEMS: CONSTITUTIONAL: No fever, chills, or night sweats. SKIN: No rashes, bumps, or itching. HEENT: No headache, hearing or vision changes. BREASTS: No lumps, pain, or discharge. PULMONARY: No cough, sputum, or shortness of breath. GASTROINTESTINAL: No nausea, vomiting, or diarrhea. Abdominal pain as noted. GENITOURINARY: No dysuria, frequency, or urgency. MUSCULOSKELETAL: No joint swelling, muscle pain, or trauma. PHYSICAL EXAMINATION: VITAL SIGNS: Reviewed. LABORATORY AND DIAGNOSTIC DATA: WBC of 4.4, hemoglobin is 7.3, hematocrit 28, and platelet count 673,000. INR 1.1. Chloride 97, 02:24, and creatinine 0.5. Lactic acid 2.3 on admission, decreased to 0.9. ASSESSMENT AND RECOMMENDATION: 1. Anemia, secondary to recent chemotherapy. Continue to closely monitor. 2. Cervical cancer history, status post surgery and radiation up front. Recommend chemotherapy in the future if the patient is able to tolerate. 3. Leukocytosis secondary to underlying infection, currently decreased. The patient with leukopenia. 4. Perforated viscus, seen in the ER. The patient requires blood transfusion. 03:16 evaluation for surgical procedure. 5. Failure to thrive, likely related to underlying history of cervical cancer, 03:29 complication, chemotherapy. 6. Urinary tract infection history. Antibiotics have been completed in the past. 7. Continue to closely monitor. I appreciate consultation. Continue supportive care. Hemoglobin goal is above 7. Get an outpatient management with chemotherapy and/or if the patient is only able to tolerate treatment. Evaluate further with Gynecology/Oncology. Chris Spencer M.D. DR: RAHDA JOB#: [id number] CC:
[2017-09-25 08:00] VITALS: BP 124/75
[2017-09-25] MEDS: Pantoprazole Inj IVP SCH (09:37)
[2017-09-25] MEDS: Heparin 5000 units/ml inj SUBQ SCH ×2 (09:47→20:18)
[2017-09-25 12:00] VITALS: BP 109/71
--- NOTE | 2017-09-25 12:35 | GI Progress Note ---
Assessment/Plan Problems: (1) Perforation of cecum ICD Codes: K63.1 - Perforation of intestine (nontraumatic) SNOMED: 416154579 (2) Perforated sigmoid colon ICD Codes: K63.1 - Perforation of intestine (nontraumatic) SNOMED: 422824614 (3) Intra-abdominal free air of unknown etiology ICD Codes: K66.8 - Other specified disorders of peritoneum SNOMED: 53294865 (4) Abdominal pain ICD Codes: R10.9 - Unspecified abdominal pain SNOMED: 21261817 Qualifiers: Qualified Codes: R10.13 - Epigastric pain (5) GI bleed ICD Codes: K92.2 - Gastrointestinal hemorrhage, unspecified SNOMED: 04171441 Qualifiers: Qualified Codes: K92.2 - Gastrointestinal hemorrhage, unspecified (6) Anemia ICD Codes: D64.9 - Anemia, unspecified SNOMED: 109790385 Qualifiers: Qualified Codes: D64.9 - Anemia, unspecified Status: progressing Status Narrative Discussed with Dr. Jordan. Assessment/Plan post op care fu surgical recs NPO + IVFs pain control fu labs Subjective Subjective hungry generalized weakness Objective Last 24 Hour Vital Signs Date Time Temp Pulse Resp B/P (MAP) Pulse Ox O2 Delivery O2 Flow Rate FiO2 09/25/17 08:00 101 09/25/17 08:00 97.3 84 19 124/75 97 Room Air 09/25/17 04:00 98.0 102 20 110/79 94 Room Air 09/25/17 04:00 106 09/25/17 03:38 96.1 09/25/17 00:05 96.1 110 18 111/79 98 Nasal Cannula 2.0 40 09/25/17 00:00 106 09/24/17 20:00 107 09/24/17 16:00 96.1 110 18 111/79 98 Nasal Cannula 2.0 09/24/17 16:00 121 Intake and Output 09/24/17 09/25/17 19:00 07:00 Intake Total 810.0 ml Output Total 600 ml 5 ml Balance 210.0 ml -5 ml IV Total 810.0 ml Output Urine Total 600 ml 5 ml # Bowel Movements 2 2 Laboratory Tests Test 09/25/17 04:45 White Blood Count 21.0 K/UL (4.8-10.8) H Red Blood Count 4.05 M/UL (4.20-5.40) L Hemoglobin 11.6 G/DL (12.0-16.0) L Hematocrit 35.4 % (37.0-47.0) L Mean Corpuscular Volume 87 FL (80-99) Mean Corpuscular Hemoglobin 28.7 PG (27.0-31.0) Mean Corpuscular Hemoglobin Concent 32.8 G/DL (32.0-36.0) Red Cell Distribution Width 15.4 % (11.6-14.8) H Platelet Count 449 K/UL (150-450) Mean Platelet Volume 4.6 FL (6.5-10.1) L Neutrophils (%) (Auto) % (45.0-75.0) Lymphocytes (%) (Auto) % (20.0-45.0) Monocytes (%) (Auto) % (1.0-10.0) Eosinophils (%) (Auto) % (0.0-3.0) Basophils (%) (Auto) % (0.0-2.0) Differential Total Cells Counted 100 Neutrophils % (Manual) 95 % (45-75) H Lymphocytes % (Manual) 2 % (20-45) L Monocytes % (Manual) 2 % (1-10) Eosinophils % (Manual) 0 % (0-3) Basophils % (Manual) 0 % (0-2) Band Neutrophils 1 % (0-8) Platelet Estimate Adequate Platelet Morphology Normal Red Blood Cell Morphology Normal Sodium Level 131 MMOL/L (136-145) L Potassium Level 4.1 MMOL/L (3.5-5.1) Chloride Level 95 MMOL/L (98-107) L Carbon Dioxide Level 30 MMOL/L (21-32) Anion Gap 6 mmol/L (5-15) Blood Urea Nitrogen 3 mg/dL (7-18) L Creatinine 0.5 MG/DL (0.55-1.30) L Estimat Glomerular Filtration Rate > 60 mL/min (>60) Glucose Level 113 MG/DL (74-106) H Calcium Level 8.8 MG/DL (8.5-10.1) Random Gentamicin Level 0.9 ug/mL Height (Feet): 5 Height (Inches): 3.00 Weight (Pounds): 72 General Appearance: WD/WN, no apparent distress, alert, thin Cardiovascular: normal rate Respiratory/Chest: normal breath sounds, no respiratory distress Abdominal Exam: normal bowel sounds, non tender, soft, other - colostomy Extremities: non-tender Cece Gerard N.P. Sep 25, 2017 12:35
--- NOTE | 2017-09-25 13:10 | Pulmonology Progress Note ---
Assessment/Plan Problems: (1) Intra-abdominal free air of unknown etiology (2) Perforated sigmoid colon (3) Sepsis Assessment/Plan iv abx iv fluid check cultures pain management Subjective ROS Limited/Unobtainable: No Interval Events: still in pain Allergies: Coded Allergies: No Known Allergies (Unverified , 09/10/17) Objective Last 24 Hour Vital Signs Date Time Temp Pulse Resp B/P (MAP) Pulse Ox O2 Delivery O2 Flow Rate FiO2 09/25/17 08:00 101 09/25/17 08:00 97.3 84 19 124/75 97 Room Air 09/25/17 04:00 98.0 102 20 110/79 94 Room Air 09/25/17 04:00 106 09/25/17 03:38 96.1 09/25/17 00:05 96.1 110 18 111/79 98 Nasal Cannula 2.0 40 09/25/17 00:00 106 09/24/17 20:00 107 09/24/17 16:00 96.1 110 18 111/79 98 Nasal Cannula 2.0 09/24/17 16:00 121 Intake and Output 09/24/17 09/25/17 19:00 07:00 Intake Total 810.0 ml Output Total 600 ml 5 ml Balance 210.0 ml -5 ml IV Total 810.0 ml Output Urine Total 600 ml 5 ml # Bowel Movements 2 2 General Appearance: cachetic HEENT: normocephalic, atraumatic Respiratory/Chest: chest wall non-tender, lungs clear Cardiovascular: normal peripheral pulses, normal rate Abdomen: normal bowel sounds, soft, non tender Extremities: no clubbing Skin: no ulcers Neurologic/Psychiatric: endband cutter hand II-XII grossly normal Microbiology Date/Time Source Procedure Growth Status 09/22/17 15:20 Abdominal Fluid Gram Stain - Final Resulted 09/22/17 15:20 Aerobic Culture - Preliminary Escherichia Coli Enterococcus Faecalis Resulted 09/22/17 15:20 Abdominal Fluid Anaerobic Culture Pending Resulted Laboratory Tests 09/25/17 04:45: White Blood Count 21.0H, Red Blood Count 4.05L, Hemoglobin 11.6L, Hematocrit 35.4L, Mean Corpuscular Volume 87, Mean Corpuscular Hemoglobin 28.7, Mean Corpuscular Hemoglobin Concent 32.8, Red Cell Distribution Width 15.4H, Platelet Count 449, Mean Platelet Volume 4.6L, Neutrophils (%) (Auto) , Lymphocytes (%) (Auto) , Monocytes (%) (Auto) , Eosinophils (%) (Auto) , Basophils (%) (Auto) , Differential Total Cells Counted 100, Neutrophils % ( Manual) 95H, Lymphocytes % (Manual) 2L, Monocytes % (Manual) 2, Eosinophils % ( Manual) 0, Basophils % (Manual) 0, Band Neutrophils 1, Platelet Estimate Adequate, Platelet Morphology Normal, Red Blood Cell Morphology Normal, Sodium Level 131L, Potassium Level 4.1, Chloride Level 95L, Carbon Dioxide Level 30, Anion Gap 6, Blood Urea Nitrogen 3L, Creatinine 0.5L, Estimat Glomerular Filtration Rate > 60, Glucose Level 113H, Calcium Level 8.8, Random Gentamicin Level 0.9 Current Medications Medications (Trade) Dose Ordered Sig/Francoise Route PRN Reason Start Time Stop Time Status Last Admin Dose Admin Acetaminophen (Tylenol) 650 mg Q4H PRN RECTAL FEVER 09/23/17 08:00 10/22/17 07:59 Albuterol/ Ipratropium (Albuterol/ Ipratropium) 3 ml Q4H PRN HHN SHORTNESS OF BREATH 09/23/17 11:00 09/28/17 10:59 Chlorhexidine Gluconate (Kenia-Hex 2%) 1 applic DAILY@2000 TOPIC 09/24/17 20:00 10/24/17 19:59 09/24/17 20:48 Dextrose/ Electrolytes 1,000 ml @ 100 mls/hr Q10H IV 09/23/17 08:30 10/22/17 08:29 09/25/17 09:50 Gentamicin Protocol (Gentamicin pharmacy to dose) 1 ea DAILY PRN MISC Per rx protocol 09/24/17 15:15 10/24/17 23:59 Gentamicin Sulfate 160 mg/ Sodium Chloride 114 ml @ 114 mls/hr Q24H IVPB 09/24/17 18:00 10/01/17 17:59 09/24/17 18:20 Heparin Sodium (Porcine) (Heparin 5000 units/ml) 5,000 units EVERY 12 HOURS SUBQ 09/23/17 09:00 10/23/17 08:59 09/25/17 09:47 Hydromorphone HCl (Dilaudid) 1 mg Q3H PRN IVP pain score 4-6 09/23/17 07:45 09/29/17 19:43 Hydromorphone HCl (Dilaudid) 3 mg Q2H PRN IVP pain score 7-10 09/23/17 08:00 09/30/17 07:59 09/25/17 12:01 Iron Sucrose 100 mg/Sodium Chloride 60 ml @ 240 mls/hr BEDTIME IVPB 09/25/17 21:00 09/27/17 21:14 Lorazepam (Ativan) 1 mg Q6H PRN ORAL For Anxiety 09/23/17 08:00 09/29/17 07:59 Ondansetron HCl (Zofran) 4 mg Q6H PRN IVP Nausea & Vomiting 09/23/17 08:00 10/22/17 07:59 Pantoprazole (Protonix) 40 mg DAILY IVP 09/23/17 09:00 10/23/17 08:59 09/25/17 09:37 Piperacillin Sod/ Tazobactam Sod 3.375 gm/Dextrose 110 ml @ 27.5 mls/hr Q8H IVPB 09/23/17 08:00 10/01/17 07:59 09/25/17 09:48 JL CHAVEZ Sep 25, 2017 13:10
--- NOTE | 2017-09-25 14:07 | General Progress Note ---
Assessment/Plan Status: unchanged Assessment/Plan Assessment and Recs: # Leukocytosis is likely reactive from Acute abdominal pain 2 to perforation with perforated cecum and rectosigmoid s/p exp laparotomy with partial R hemicolectomy --> Monitor wbc count --> Worsened from yesterday, continue to closely monitor. # Cervical Ca s/p surgery and radiation, has not received any chemotherapy recently # Anemia of chronic disease --> w/u has been reviewed --> hgb goal is >7 --> Currently mild, does not need blood transfusion # Thrombocytosis is likely related to chronic reactive process --> currently improved # Anemia of GI bleeding --> GI followup. # Severe protein calorie malnutrition Subjective Date patient seen: Sep 25, 2017 Constitutional: Denies: no symptoms, chills, diaphoresis, fever, malaise, weakness, other HEENT: Denies: no symptoms, eye pain, blurred vision, tearing, double vision, ear pain, ear discharge, nose pain, nose congestion, throat pain, throat swelling, mouth pain, mouth swelling, other Cardiovascular: Denies: no symptoms, chest pain, edema, irregular heart rate, lightheadedness, palpitations, syncope, other Respiratory: Denies: no symptoms, cough, orthopnea, shortness of breath, SOB with excertion, SOB at rest, sputum, stridor, wheezing, other Gastrointestinal/Abdominal: Denies: no symptoms, abdomen distended, abdominal pain, black stools, tarry stools, blood in stool, constipated, diarrhea, difficulty swallowing, nausea, poor appetite, poor fluid intake, rectal bleeding , vomiting, other Hematologic/Lymphatic: Reports: anemia, other - leukocytosis Allergies: Coded Allergies: No Known Allergies (Unverified , 09/10/17) Subjective Leukocytosis slightly worsened. Anemia is mild. Objective Last 24 Hour Vital Signs Date Time Temp Pulse Resp B/P (MAP) Pulse Ox O2 Delivery O2 Flow Rate FiO2 09/25/17 08:00 101 09/25/17 08:00 97.3 84 19 124/75 97 Room Air 09/25/17 04:00 98.0 102 20 110/79 94 Room Air 09/25/17 04:00 106 09/25/17 03:38 96.1 09/25/17 00:05 96.1 110 18 111/79 98 Nasal Cannula 2.0 40 09/25/17 00:00 106 09/24/17 20:00 107 09/24/17 16:00 96.1 110 18 111/79 98 Nasal Cannula 2.0 09/24/17 16:00 121 Intake and Output 09/24/17 09/25/17 19:00 07:00 Intake Total 810.0 ml Output Total 600 ml 5 ml Balance 210.0 ml -5 ml IV Total 810.0 ml Output Urine Total 600 ml 5 ml # Bowel Movements 2 2 Laboratory Tests 09/25/17 04:45: White Blood Count 21.0H, Red Blood Count 4.05L, Hemoglobin 11.6L, Hematocrit 35.4L, Mean Corpuscular Volume 87, Mean Corpuscular Hemoglobin 28.7, Mean Corpuscular Hemoglobin Concent 32.8, Red Cell Distribution Width 15.4H, Platelet Count 449, Mean Platelet Volume 4.6L, Neutrophils (%) (Auto) , Lymphocytes (%) (Auto) , Monocytes (%) (Auto) , Eosinophils (%) (Auto) , Basophils (%) (Auto) , Differential Total Cells Counted 100, Neutrophils % ( Manual) 95H, Lymphocytes % (Manual) 2L, Monocytes % (Manual) 2, Eosinophils % ( Manual) 0, Basophils % (Manual) 0, Band Neutrophils 1, Platelet Estimate Adequate, Platelet Morphology Normal, Red Blood Cell Morphology Normal, Sodium Level 131L, Potassium Level 4.1, Chloride Level 95L, Carbon Dioxide Level 30, Anion Gap 6, Blood Urea Nitrogen 3L, Creatinine 0.5L, Estimat Glomerular Filtration Rate > 60, Glucose Level 113H, Calcium Level 8.8, Random Gentamicin Level 0.9 Height (Feet): 5 Height (Inches): 3.00 Weight (Pounds): 72 Chris Spencer Sep 25, 2017 14:07
--- NOTE | 2017-09-25 14:10 | General Progress Note ---
Assessment/Plan Problem List: (1) Anemia ICD Codes: D64.9 - Anemia, unspecified SNOMED: 630451362 Qualifiers: Qualified Codes: D64.9 - Anemia, unspecified (2) GI bleed ICD Codes: K92.2 - Gastrointestinal hemorrhage, unspecified SNOMED: 77881584 Qualifiers: Qualified Codes: K92.2 - Gastrointestinal hemorrhage, unspecified (3) Abdominal pain ICD Codes: R10.9 - Unspecified abdominal pain SNOMED: 59552692 Qualifiers: Qualified Codes: R10.13 - Epigastric pain Status: unchanged Assessment/Plan ot pt diet ng cbc bmp am gi f/u Subjective Constitutional: Reports: weakness Allergies: Coded Allergies: No Known Allergies (Unverified , 09/10/17) All Systems: reviewed and negative except above Subjective ng nauseus Objective Last 24 Hour Vital Signs Date Time Temp Pulse Resp B/P (MAP) Pulse Ox O2 Delivery O2 Flow Rate FiO2 09/25/17 12:00 108 09/25/17 12:00 97.0 102 19 109/71 95 Room Air 09/25/17 08:00 101 09/25/17 08:00 97.3 84 19 124/75 97 Room Air 09/25/17 04:00 98.0 102 20 110/79 94 Room Air 09/25/17 04:00 106 09/25/17 03:38 96.1 09/25/17 00:05 96.1 110 18 111/79 98 Nasal Cannula 2.0 40 09/25/17 00:00 106 09/24/17 20:00 107 09/24/17 16:00 96.1 110 18 111/79 98 Nasal Cannula 2.0 09/24/17 16:00 121 Intake and Output 09/24/17 09/25/17 19:00 07:00 Intake Total 810.0 ml Output Total 600 ml 5 ml Balance 210.0 ml -5 ml IV Total 810.0 ml Output Urine Total 600 ml 5 ml # Bowel Movements 2 2 Laboratory Tests 09/25/17 04:45: White Blood Count 21.0H, Red Blood Count 4.05L, Hemoglobin 11.6L, Hematocrit 35.4L, Mean Corpuscular Volume 87, Mean Corpuscular Hemoglobin 28.7, Mean Corpuscular Hemoglobin Concent 32.8, Red Cell Distribution Width 15.4H, Platelet Count 449, Mean Platelet Volume 4.6L, Neutrophils (%) (Auto) , Lymphocytes (%) (Auto) , Monocytes (%) (Auto) , Eosinophils (%) (Auto) , Basophils (%) (Auto) , Differential Total Cells Counted 100, Neutrophils % ( Manual) 95H, Lymphocytes % (Manual) 2L, Monocytes % (Manual) 2, Eosinophils % ( Manual) 0, Basophils % (Manual) 0, Band Neutrophils 1, Platelet Estimate Adequate, Platelet Morphology Normal, Red Blood Cell Morphology Normal, Sodium Level 131L, Potassium Level 4.1, Chloride Level 95L, Carbon Dioxide Level 30, Anion Gap 6, Blood Urea Nitrogen 3L, Creatinine 0.5L, Estimat Glomerular Filtration Rate > 60, Glucose Level 113H, Calcium Level 8.8, Random Gentamicin Level 0.9 Height (Feet): 5 Height (Inches): 3.00 Weight (Pounds): 72 General Appearance: lethargic EENT: normal ENT inspection Neck: normal alignment Cardiovascular: normal peripheral pulses, normal rate, regular rhythm Respiratory/Chest: chest wall non-tender, lungs clear, normal breath sounds Abdomen: hypoactive bowel sounds Extremities: normal inspection Edema: no edema noted Arm (L), no edema noted Arm (R), no edema noted Leg (L), no edema noted Leg (R), no edema noted Pedal (L), no edema noted Pedal (R), no edema noted Generalized Neurologic: motor weakness Skin: normal pigmentation, warm/dry SONIDO FELICIANO Sep 25, 2017 14:10
--- NOTE | 2017-09-25 14:13 | General Surgery Progress Note ---
General Surgery-Progress Note Objective Last 24 Hour Vital Signs Date Time Temp Pulse Resp B/P (MAP) Pulse Ox O2 Delivery O2 Flow Rate FiO2 09/25/17 12:00 108 09/25/17 12:00 97.0 102 19 109/71 95 Room Air 09/25/17 08:00 101 09/25/17 08:00 97.3 84 19 124/75 97 Room Air 09/25/17 04:00 98.0 102 20 110/79 94 Room Air 09/25/17 04:00 106 09/25/17 03:38 96.1 09/25/17 00:05 96.1 110 18 111/79 98 Nasal Cannula 2.0 40 09/25/17 00:00 106 09/24/17 20:00 107 09/24/17 16:00 96.1 110 18 111/79 98 Nasal Cannula 2.0 09/24/17 16:00 121 I&O Intake and Output 09/24/17 09/25/17 19:00 07:00 Intake Total 810.0 ml Output Total 600 ml 5 ml Balance 210.0 ml -5 ml IV Total 810.0 ml Output Urine Total 600 ml 5 ml # Bowel Movements 2 2 Dressing: other - packed Drains: james Respiratory: clear Abdomen: soft, flat, tenderness, absent bowel sounds Extremities: no tenderness Laboratory Tests Test 09/25/17 04:45 White Blood Count 21.0 K/UL (4.8-10.8) H Red Blood Count 4.05 M/UL (4.20-5.40) L Hemoglobin 11.6 G/DL (12.0-16.0) L Hematocrit 35.4 % (37.0-47.0) L Mean Corpuscular Volume 87 FL (80-99) Mean Corpuscular Hemoglobin 28.7 PG (27.0-31.0) Mean Corpuscular Hemoglobin Concent 32.8 G/DL (32.0-36.0) Red Cell Distribution Width 15.4 % (11.6-14.8) H Platelet Count 449 K/UL (150-450) Mean Platelet Volume 4.6 FL (6.5-10.1) L Neutrophils (%) (Auto) % (45.0-75.0) Lymphocytes (%) (Auto) % (20.0-45.0) Monocytes (%) (Auto) % (1.0-10.0) Eosinophils (%) (Auto) % (0.0-3.0) Basophils (%) (Auto) % (0.0-2.0) Differential Total Cells Counted 100 Neutrophils % (Manual) 95 % (45-75) H Lymphocytes % (Manual) 2 % (20-45) L Monocytes % (Manual) 2 % (1-10) Eosinophils % (Manual) 0 % (0-3) Basophils % (Manual) 0 % (0-2) Band Neutrophils 1 % (0-8) Platelet Estimate Adequate Platelet Morphology Normal Red Blood Cell Morphology Normal Sodium Level 131 MMOL/L (136-145) L Potassium Level 4.1 MMOL/L (3.5-5.1) Chloride Level 95 MMOL/L (98-107) L Carbon Dioxide Level 30 MMOL/L (21-32) Anion Gap 6 mmol/L (5-15) Blood Urea Nitrogen 3 mg/dL (7-18) L Creatinine 0.5 MG/DL (0.55-1.30) L Estimat Glomerular Filtration Rate > 60 mL/min (>60) Glucose Level 113 MG/DL (74-106) H Calcium Level 8.8 MG/DL (8.5-10.1) Random Gentamicin Level 0.9 ug/mL Assessment Post-op Diagnosis perforation of cecum and recto-sigmoid Plan Additional Comments continue NPO and IV antibiotics DWAYNE OLIVER Sep 25, 2017 14:13
--- NOTE | 2017-09-25 15:11 | Diagnostic Imaging Report ---
Indication: Reason For Exam: SOB Technique: XRAY Chest 1v Comparison: 09/23/2017 Findings: Heart size and mediastinal contours are stable. NG tube tip in the stomach. Abdominal drainage catheter tip in the right upper quadrant. Right IJ central line tip in the SVC. There is no focal airspace consolidation. There is trace left pleural fluid. There is no pneumothorax. No acute osseous abnormality seen. Impression: Interval development of trace left pleural effusion. Lungs are otherwise clear. Support lines/tubes unchanged in position.
[2017-09-25 16:00] VITALS: BP 108/77
[2017-09-25] MEDS ORDERED: Albuterol/Ipratropium 3ml neb HHN PRN (16:30)
[2017-09-25] MEDS ORDERED: LORazepam 1mg tab ORAL PRN (16:30)
[2017-09-25] MEDS ORDERED: Acetaminophen 650 MG SUPP RECTAL PRN (16:30)
[2017-09-25] MEDS ORDERED: Hydromorphone 0.5mg/0.5ml inj IVP PRN (16:45)
[2017-09-25] MEDS ORDERED: HYDROmorphone 1mg/ml Carpuject IVP PRN (16:45)
[2017-09-25] MEDS ORDERED: Tubing IV Secondary IV ONE (17:16)
[2017-09-25] MEDS ORDERED: NS 275ml ONE (17:16)
[2017-09-25] MEDS: Gentamicin inj 160 MG in NS 110 ML IVPB SCH (17:33)
--- NOTE | 2017-09-25 18:44 | Cardiology Progress Note ---
Assessment/Plan Assessment/Plan 1. Sinus tachycardia, most likely due to volume depletion, continue hydration. 2. Hypotension, due to intravascular volume depression consider hydration. 3. History of cervical cancer, status post chemotherapy. Subjective Subjective She is off the telemetry box. Objective Last 24 Hour Vital Signs Date Time Temp Pulse Resp B/P (MAP) Pulse Ox O2 Delivery O2 Flow Rate FiO2 09/25/17 16:00 96.8 100 20 108/77 94 09/25/17 12:00 108 09/25/17 12:00 97.0 102 19 109/71 95 Room Air 09/25/17 08:00 101 09/25/17 08:00 97.3 84 19 124/75 97 Room Air 09/25/17 04:00 98.0 102 20 110/79 94 Room Air 09/25/17 04:00 106 09/25/17 03:38 96.1 09/25/17 00:05 96.1 110 18 111/79 98 Nasal Cannula 2.0 40 09/25/17 00:00 106 09/24/17 20:00 107 Intake and Output 09/24/17 09/25/17 19:00 07:00 Intake Total 810.0 ml Output Total 600 ml 5 ml Balance 210.0 ml -5 ml IV Total 810.0 ml Output Urine Total 600 ml 5 ml # Bowel Movements 2 2 Laboratory Tests Test 09/25/17 04:45 White Blood Count 21.0 K/UL (4.8-10.8) H Red Blood Count 4.05 M/UL (4.20-5.40) L Hemoglobin 11.6 G/DL (12.0-16.0) L Hematocrit 35.4 % (37.0-47.0) L Mean Corpuscular Volume 87 FL (80-99) Mean Corpuscular Hemoglobin 28.7 PG (27.0-31.0) Mean Corpuscular Hemoglobin Concent 32.8 G/DL (32.0-36.0) Red Cell Distribution Width 15.4 % (11.6-14.8) H Platelet Count 449 K/UL (150-450) Mean Platelet Volume 4.6 FL (6.5-10.1) L Neutrophils (%) (Auto) % (45.0-75.0) Lymphocytes (%) (Auto) % (20.0-45.0) Monocytes (%) (Auto) % (1.0-10.0) Eosinophils (%) (Auto) % (0.0-3.0) Basophils (%) (Auto) % (0.0-2.0) Differential Total Cells Counted 100 Neutrophils % (Manual) 95 % (45-75) H Lymphocytes % (Manual) 2 % (20-45) L Monocytes % (Manual) 2 % (1-10) Eosinophils % (Manual) 0 % (0-3) Basophils % (Manual) 0 % (0-2) Band Neutrophils 1 % (0-8) Platelet Estimate Adequate Platelet Morphology Normal Red Blood Cell Morphology Normal Sodium Level 131 MMOL/L (136-145) L Potassium Level 4.1 MMOL/L (3.5-5.1) Chloride Level 95 MMOL/L (98-107) L Carbon Dioxide Level 30 MMOL/L (21-32) Anion Gap 6 mmol/L (5-15) Blood Urea Nitrogen 3 mg/dL (7-18) L Creatinine 0.5 MG/DL (0.55-1.30) L Estimat Glomerular Filtration Rate > 60 mL/min (>60) Glucose Level 113 MG/DL (74-106) H Calcium Level 8.8 MG/DL (8.5-10.1) Random Gentamicin Level 0.9 ug/mL Objective HEENT: Atraumatic and normocephalic. Anicteric. Pupils are equal, round, and reactive to light and accommodation. There is conjunctival pallor. NECK: JVP less than 5 cm. No carotid bruit. Carotid upstrokes 2+ bilaterally. CARDIOVASCULAR: Normal S1 and S2. Regular rate and rhythm. Tachycardic. No murmurs, gallops, or rubs. LUNGS: Clear to auscultation bilaterally. ABDOMEN: Soft, nontender, and nondistended. No hepatosplenomegaly. Positive bowel sounds. EXTREMITIES: No evidence of edema, clubbing, or cyanosis. JUDITH WATSON Sep 25, 2017 18:44
[2017-09-25 20:00] VITALS: BP 113/81
[2017-09-25] MEDS: Iron Sucrose 100 MG in NS 55 ML IV SCH (20:10)
[2017-09-25] MEDS: Dyna-Hex 2% Top Sol 2oz TOPIC SCH (20:10)
[2017-09-25] MEDS ORDERED: Iron Sucrose 100 MG in NS 55 ML IVPB SCH (21:00)
[2017-09-26] VITALS: BP 111/79
[2017-09-26] MEDS: D5 1/2NS w/KCl 20mEq 1,000 ML IV SCH (02:25)
[2017-09-26 04:00] VITALS: BP 107/75
[2017-09-26 07:25] LABS: HEMATOCRIT 40.6 % (37.0-47.0); HEMOGLOBIN 12.9 G/DL (12.0-16.0); MEAN CORPUSCULAR VOLUME 89 FL (80-99); PLATELET COUNT 503 K/UL (150-450); RED BLOOD COUNT 4.56 M/UL (4.20-5.40); RED CELL DISTRIBUTION WIDTH 15.5 % (11.6-14.8); WHITE BLOOD COUNT 13.3 K/UL (4.8-10.8)
[2017-09-26 07:36] LABS: ALANINE AMINOTRANSFERASE 18 U/L (12-78); ALBUMIN 1.5 G/DL (3.4-5.0); ALBUMIN/GLOBULIN RATIO 0.3 (1.0-2.7); ALKALINE PHOSPHATASE 107 U/L (46-116); ANION GAP 3 mmol/L (5-15); ASPARTATE AMINO TRANSFERASE 17 U/L (15-37); BILIRUBIN,TOTAL 2.5 MG/DL (0.2-1.0); BLOOD UREA NITROGEN 2 mg/dL (7-18); CALCIUM 9.7 MG/DL (8.5-10.1); CARBON DIOXIDE 34 MMOL/L (21-32); CHLORIDE 98 MMOL/L (98-107); CREATININE 0.5 MG/DL (0.55-1.30); POTASSIUM 5.3 MMOL/L (3.5-5.1); SODIUM 135 MMOL/L (136-145)
[2017-09-26 07:44] LABS: BILIRUBIN,DIRECT 1.6 MG/DL (0.0-0.3)
[2017-09-26] MEDS: Pantoprazole Inj IVP SCH (08:18)
[2017-09-26 08:24] VITALS: BP 111/78
[2017-09-26] MEDS: Heparin 5000 units/ml inj SUBQ SCH ×2 (08:26→20:32)
[2017-09-26] MEDS ORDERED: Gentamicin Rx monitoring MISC PRN (09:00)
--- NOTE | 2017-09-26 10:05 | Infectious Diseases Prog Note ---
Assessment/Plan Assessment/Plan A; Perforated bowel Peritonitis Cervical cancer P: Continue Zosyn Subjective ROS Limited/Unobtainable: No Constitutional: Reports: no symptoms Respiratory: Reports: productive cough Gastrointestinal/Abdominal: Reports: other - pain in surgical side Genitourinary: Reports: no symptoms Allergies: Coded Allergies: No Known Allergies (Unverified , 09/10/17) Objective Vital Signs Last 24 Hour Vital Signs Date Time Temp Pulse Resp B/P (MAP) Pulse Ox O2 Delivery O2 Flow Rate FiO2 09/26/17 08:33 105 18 Room Air 09/26/17 08:24 97.4 95 19 111/78 96 09/26/17 04:00 97.6 109 19 107/75 100 09/26/17 00:00 98.2 104 20 111/79 100 09/25/17 22:32 85 18 Room Air 09/25/17 20:00 98.3 109 20 113/81 99 09/25/17 19:08 96.8 09/25/17 16:00 96.8 100 20 108/77 94 09/25/17 12:00 108 09/25/17 12:00 97.0 102 19 109/71 95 Room Air Height (Feet): 5 Height (Inches): 3.00 Weight (Pounds): 72 General Appearance: cachetic HEENT: mucous membranes moist Respiratory/Chest: lungs clear Cardiovascular: tachycardia, other - RIJ central line Abdomen: other - soft, s/p colostomy Neurologic/Psychiatric: alert, oriented x 3, responsive Laboratory Tests Test 09/26/17 06:25 White Blood Count 13.3 K/UL (4.8-10.8) H Red Blood Count 4.56 M/UL (4.20-5.40) Hemoglobin 12.9 G/DL (12.0-16.0) Hematocrit 40.6 % (37.0-47.0) Mean Corpuscular Volume 89 FL (80-99) Mean Corpuscular Hemoglobin 28.3 PG (27.0-31.0) Mean Corpuscular Hemoglobin Concent 31.9 G/DL (32.0-36.0) L Red Cell Distribution Width 15.5 % (11.6-14.8) H Platelet Count 503 K/UL (150-450) H Mean Platelet Volume 4.7 FL (6.5-10.1) L Neutrophils (%) (Auto) % (45.0-75.0) Lymphocytes (%) (Auto) % (20.0-45.0) Monocytes (%) (Auto) % (1.0-10.0) Eosinophils (%) (Auto) % (0.0-3.0) Basophils (%) (Auto) % (0.0-2.0) Differential Total Cells Counted 100 Neutrophils % (Manual) 96 % (45-75) H Lymphocytes % (Manual) 2 % (20-45) L Monocytes % (Manual) 2 % (1-10) Eosinophils % (Manual) 0 % (0-3) Basophils % (Manual) 0 % (0-2) Band Neutrophils 0 % (0-8) Platelet Estimate Adequate Platelet Morphology Normal Red Blood Cell Morphology Normal Sodium Level 135 MMOL/L (136-145) L Potassium Level 5.3 MMOL/L (3.5-5.1) H Chloride Level 98 MMOL/L (98-107) Carbon Dioxide Level 34 MMOL/L (21-32) H Anion Gap 3 mmol/L (5-15) L Blood Urea Nitrogen 2 mg/dL (7-18) L Creatinine 0.5 MG/DL (0.55-1.30) L Estimat Glomerular Filtration Rate > 60 mL/min (>60) Glucose Level 115 MG/DL (74-106) H Calcium Level 9.7 MG/DL (8.5-10.1) Total Bilirubin 2.5 MG/DL (0.2-1.0) H Direct Bilirubin 1.6 MG/DL (0.0-0.3) H Aspartate Amino Transf (AST/SGOT) 17 U/L (15-37) Alanine Aminotransferase (ALT/SGPT) 18 U/L (12-78) Alkaline Phosphatase 107 U/L (46-116) Total Protein 6.1 G/DL (6.4-8.2) L Albumin 1.5 G/DL (3.4-5.0) L Globulin 4.6 g/dL Albumin/Globulin Ratio 0.3 (1.0-2.7) L Current Medications Medications (Trade) Dose Ordered Sig/Francoise Route PRN Reason Start Time Stop Time Status Last Admin Dose Admin Acetaminophen (Tylenol) 650 mg Q4H PRN RECTAL FEVER 09/25/17 16:30 2/18/18 16:29 Albuterol/ Ipratropium (Albuterol/ Ipratropium) 3 ml Q4H PRN HHN SHORTNESS OF BREATH 09/25/17 16:30 09/28/17 16:29 Chlorhexidine Gluconate (Kenia-Hex 2%) 1 applic DAILY@2000 TOPIC 09/25/17 20:00 10/24/17 19:59 09/25/17 20:10 Dextrose/ Electrolytes 1,000 ml @ 100 mls/hr Q10H IV 09/25/17 18:00 10/22/17 17:59 09/26/17 02:25 Gentamicin Protocol (Gentamicin pharmacy to dose) 1 ea DAILY PRN MISC Per rx protocol 09/26/17 09:00 10/24/17 23:59 Gentamicin Sulfate 160 mg/ Sodium Chloride 114 ml @ 114 mls/hr Q24H IVPB 09/25/17 18:00 10/01/17 17:59 09/25/17 17:33 Heparin Sodium (Porcine) (Heparin 5000 units/ml) 5,000 units EVERY 12 HOURS SUBQ 09/25/17 21:00 10/23/17 08:59 09/26/17 08:26 Hydromorphone HCl (Dilaudid) 1 mg Q3H PRN IVP pain score 4-6 09/25/17 16:45 09/29/17 19:43 Hydromorphone HCl (Dilaudid) 3 mg Q2H PRN IVP pain score 7-10 09/25/17 16:30 09/30/17 16:29 09/26/17 08:17 Iron Sucrose 100 mg/Sodium Chloride 60 ml @ 240 mls/hr BEDTIME IV 09/25/17 21:00 09/27/17 21:01 09/25/17 20:10 Levofloxacin 150 ml @ 100 mls/hr Q24H IVPB 09/26/17 15:00 10/02/17 14:59 Lorazepam (Ativan) 1 mg Q6H PRN ORAL For Anxiety 09/25/17 16:30 09/29/17 16:29 Ondansetron HCl (Zofran) 4 mg Q6H PRN IVP Nausea & Vomiting 09/25/17 16:30 10/22/17 16:29 Pantoprazole (Protonix) 40 mg DAILY IVP 09/26/17 09:00 10/23/17 08:59 09/26/17 08:18 CHERYLE WOLFE Sep 26, 2017 10:05
--- NOTE | 2017-09-26 10:29 | GI Progress Note ---
Assessment/Plan Problems: (1) Perforation of cecum ICD Codes: K63.1 - Perforation of intestine (nontraumatic) SNOMED: 189288046 (2) Perforated sigmoid colon ICD Codes: K63.1 - Perforation of intestine (nontraumatic) SNOMED: 084812410 (3) Intra-abdominal free air of unknown etiology ICD Codes: K66.8 - Other specified disorders of peritoneum SNOMED: 25494732 (4) Abdominal pain ICD Codes: R10.9 - Unspecified abdominal pain SNOMED: 58111503 Qualifiers: Qualified Codes: R10.13 - Epigastric pain (5) GI bleed ICD Codes: K92.2 - Gastrointestinal hemorrhage, unspecified SNOMED: 40698500 Qualifiers: Qualified Codes: K92.2 - Gastrointestinal hemorrhage, unspecified (6) Anemia ICD Codes: D64.9 - Anemia, unspecified SNOMED: 083981637 Qualifiers: Qualified Codes: D64.9 - Anemia, unspecified Status: unchanged Status Narrative Discussed with Dr. Jordan. Assessment/Plan post op care fu surgical recs NPO + IVFs, consider TPN pain control fu labs Subjective Subjective hungry generalized weakness Objective Last 24 Hour Vital Signs Date Time Temp Pulse Resp B/P (MAP) Pulse Ox O2 Delivery O2 Flow Rate FiO2 09/26/17 08:33 105 18 Room Air 09/26/17 08:24 97.4 95 19 111/78 96 09/26/17 04:00 97.6 109 19 107/75 100 09/26/17 00:00 98.2 104 20 111/79 100 09/25/17 22:32 85 18 Room Air 09/25/17 20:00 98.3 109 20 113/81 99 09/25/17 19:08 96.8 09/25/17 16:00 96.8 100 20 108/77 94 09/25/17 12:00 108 09/25/17 12:00 97.0 102 19 109/71 95 Room Air Intake and Output 09/25/17 09/26/17 19:00 07:00 Intake Total 100 ml 1200 ml Output Total 175 ml Balance 100 ml 1025 ml IV Total 100 ml 1200 ml Stool Total 5 ml Drainage Total 70 ml Other 100 ml # Voids 5 2 # Bowel Movements 2 Laboratory Tests Test 09/26/17 06:25 White Blood Count 13.3 K/UL (4.8-10.8) H Red Blood Count 4.56 M/UL (4.20-5.40) Hemoglobin 12.9 G/DL (12.0-16.0) Hematocrit 40.6 % (37.0-47.0) Mean Corpuscular Volume 89 FL (80-99) Mean Corpuscular Hemoglobin 28.3 PG (27.0-31.0) Mean Corpuscular Hemoglobin Concent 31.9 G/DL (32.0-36.0) L Red Cell Distribution Width 15.5 % (11.6-14.8) H Platelet Count 503 K/UL (150-450) H Mean Platelet Volume 4.7 FL (6.5-10.1) L Neutrophils (%) (Auto) % (45.0-75.0) Lymphocytes (%) (Auto) % (20.0-45.0) Monocytes (%) (Auto) % (1.0-10.0) Eosinophils (%) (Auto) % (0.0-3.0) Basophils (%) (Auto) % (0.0-2.0) Differential Total Cells Counted 100 Neutrophils % (Manual) 96 % (45-75) H Lymphocytes % (Manual) 2 % (20-45) L Monocytes % (Manual) 2 % (1-10) Eosinophils % (Manual) 0 % (0-3) Basophils % (Manual) 0 % (0-2) Band Neutrophils 0 % (0-8) Platelet Estimate Adequate Platelet Morphology Normal Red Blood Cell Morphology Normal Sodium Level 135 MMOL/L (136-145) L Potassium Level 5.3 MMOL/L (3.5-5.1) H Chloride Level 98 MMOL/L (98-107) Carbon Dioxide Level 34 MMOL/L (21-32) H Anion Gap 3 mmol/L (5-15) L Blood Urea Nitrogen 2 mg/dL (7-18) L Creatinine 0.5 MG/DL (0.55-1.30) L Estimat Glomerular Filtration Rate > 60 mL/min (>60) Glucose Level 115 MG/DL (74-106) H Calcium Level 9.7 MG/DL (8.5-10.1) Total Bilirubin 2.5 MG/DL (0.2-1.0) H Direct Bilirubin 1.6 MG/DL (0.0-0.3) H Aspartate Amino Transf (AST/SGOT) 17 U/L (15-37) Alanine Aminotransferase (ALT/SGPT) 18 U/L (12-78) Alkaline Phosphatase 107 U/L (46-116) Total Protein 6.1 G/DL (6.4-8.2) L Albumin 1.5 G/DL (3.4-5.0) L Globulin 4.6 g/dL Albumin/Globulin Ratio 0.3 (1.0-2.7) L Height (Feet): 5 Height (Inches): 3.00 Weight (Pounds): 72 General Appearance: no apparent distress, alert, thin Cardiovascular: normal rate Respiratory/Chest: normal breath sounds Abdominal Exam: other - colostomy Cece Gerard N.P. Sep 26, 2017 10:29
[2017-09-26] MEDS ORDERED: D5 1/2NS 1,000 ML IV SCH (11:15)
[2017-09-26 11:35] VITALS: BP 127/74
--- NOTE | 2017-09-26 12:18 | Pulmonology Progress Note ---
Assessment/Plan Problems: (1) Intra-abdominal free air of unknown etiology (2) Perforated sigmoid colon (3) Sepsis Assessment/Plan iv abx iv fluid check cultures pain management continue NG suction chagne IV fluid check electroltyes. Subjective ROS Limited/Unobtainable: No Interval Events: npo, Allergies: Coded Allergies: No Known Allergies (Unverified , 09/10/17) Objective Last 24 Hour Vital Signs Date Time Temp Pulse Resp B/P (MAP) Pulse Ox O2 Delivery O2 Flow Rate FiO2 09/26/17 11:35 97.5 105 20 127/74 96 09/26/17 08:33 105 18 Room Air 09/26/17 08:24 97.4 95 19 111/78 96 09/26/17 04:00 97.6 109 19 107/75 100 09/26/17 00:00 98.2 104 20 111/79 100 09/25/17 22:32 85 18 Room Air 09/25/17 20:00 98.3 109 20 113/81 99 09/25/17 19:08 96.8 09/25/17 16:00 96.8 100 20 108/77 94 Intake and Output 09/25/17 09/26/17 19:00 07:00 Intake Total 100 ml 1200 ml Output Total 175 ml Balance 100 ml 1025 ml IV Total 100 ml 1200 ml Stool Total 5 ml Drainage Total 70 ml Other 100 ml # Voids 5 2 # Bowel Movements 2 General Appearance: WD/WN, cachetic HEENT: normocephalic Respiratory/Chest: chest wall non-tender, lungs clear Cardiovascular: normal peripheral pulses, normal rate Abdomen: normal bowel sounds, soft, non tender Genitourinary: normal external genitalia Extremities: no clubbing Skin: no rash Laboratory Tests 09/26/17 06:25: White Blood Count 13.3H, Red Blood Count 4.56, Hemoglobin 12.9, Hematocrit 40.6 , Mean Corpuscular Volume 89, Mean Corpuscular Hemoglobin 28.3, Mean Corpuscular Hemoglobin Concent 31.9L, Red Cell Distribution Width 15.5H, Platelet Count 503H, Mean Platelet Volume 4.7L, Neutrophils (%) (Auto) , Lymphocytes (%) (Auto) , Monocytes (%) (Auto) , Eosinophils (%) (Auto) , Basophils (%) (Auto) , Differential Total Cells Counted 100, Neutrophils % ( Manual) 96H, Lymphocytes % (Manual) 2L, Monocytes % (Manual) 2, Eosinophils % ( Manual) 0, Basophils % (Manual) 0, Band Neutrophils 0, Platelet Estimate Adequate, Platelet Morphology Normal, Red Blood Cell Morphology Normal, Sodium Level 135L, Potassium Level 5.3H, Chloride Level 98, Carbon Dioxide Level 34H, Anion Gap 3L, Blood Urea Nitrogen 2L, Creatinine 0.5L, Estimat Glomerular Filtration Rate > 60, Glucose Level 115H, Calcium Level 9.7, Total Bilirubin 2.5H, Direct Bilirubin 1.6H, Aspartate Amino Transf (AST/SGOT) 17, Alanine Aminotransferase (ALT/SGPT) 18, Alkaline Phosphatase 107, Total Protein 6.1L, Albumin 1.5L, Globulin 4.6, Albumin/Globulin Ratio 0.3L Current Medications Medications (Trade) Dose Ordered Sig/Francoise Route PRN Reason Start Time Stop Time Status Last Admin Dose Admin Acetaminophen (Tylenol) 650 mg Q4H PRN RECTAL FEVER 09/25/17 16:30 10/22/17 16:29 Albuterol/ Ipratropium (Albuterol/ Ipratropium) 3 ml Q4H PRN HHN SHORTNESS OF BREATH 09/25/17 16:30 09/28/17 16:29 Chlorhexidine Gluconate (Kenia-Hex 2%) 1 applic DAILY@2000 TOPIC 09/25/17 20:00 10/24/17 19:59 09/25/17 20:10 Dextrose/Sodium Chloride 1,000 ml @ 100 mls/hr Q10H IV 09/26/17 11:15 10/26/17 11:14 09/26/17 11:52 Gentamicin Protocol (Gentamicin pharmacy to dose) 1 ea DAILY PRN MISC Per rx protocol 09/26/17 09:00 10/24/17 23:59 Gentamicin Sulfate 160 mg/ Sodium Chloride 114 ml @ 114 mls/hr Q24H IVPB 09/25/17 18:00 10/01/17 17:59 09/25/17 17:33 Heparin Sodium (Porcine) (Heparin 5000 units/ml) 5,000 units EVERY 12 HOURS SUBQ 09/25/17 21:00 10/23/17 08:59 09/26/17 08:26 Hydromorphone HCl (Dilaudid) 1 mg Q3H PRN IVP pain score 4-6 09/25/17 16:45 09/29/17 19:43 Hydromorphone HCl (Dilaudid) 3 mg Q2H PRN IVP pain score 7-10 09/25/17 16:30 09/30/17 16:29 09/26/17 10:50 Iron Sucrose 100 mg/Sodium Chloride 60 ml @ 240 mls/hr BEDTIME IV 09/25/17 21:00 09/27/17 21:01 09/25/17 20:10 Levofloxacin 150 ml @ 100 mls/hr Q24H IVPB 09/26/17 15:00 10/02/17 14:59 Lorazepam (Ativan) 1 mg Q6H PRN ORAL For Anxiety 09/25/17 16:30 09/29/17 16:29 Ondansetron HCl (Zofran) 4 mg Q6H PRN IVP Nausea & Vomiting 09/25/17 16:30 10/22/17 16:29 Pantoprazole (Protonix) 40 mg DAILY IVP 09/26/17 09:00 10/23/17 08:59 09/26/17 08:18 JL CHAVEZ Sep 26, 2017 12:18
--- NOTE | 2017-09-26 13:49 | General Progress Note ---
Assessment/Plan Problem List: (1) Anemia ICD Codes: D64.9 - Anemia, unspecified SNOMED: 543102255 Qualifiers: Qualified Codes: D64.9 - Anemia, unspecified (2) GI bleed ICD Codes: K92.2 - Gastrointestinal hemorrhage, unspecified SNOMED: 09346112 Qualifiers: Qualified Codes: K92.2 - Gastrointestinal hemorrhage, unspecified (3) Abdominal pain ICD Codes: R10.9 - Unspecified abdominal pain SNOMED: 30485970 Qualifiers: Qualified Codes: R10.13 - Epigastric pain Status: unchanged Assessment/Plan ot pt diet ng cbc bmp am gi f/u id eval Subjective Constitutional: Reports: weakness Allergies: Coded Allergies: No Known Allergies (Unverified , 09/10/17) All Systems: reviewed and negative except above Subjective ng sl nauseus Objective Last 24 Hour Vital Signs Date Time Temp Pulse Resp B/P (MAP) Pulse Ox O2 Delivery O2 Flow Rate FiO2 09/26/17 11:35 97.5 105 20 127/74 96 09/26/17 08:33 105 18 Room Air 09/26/17 08:24 97.4 95 19 111/78 96 09/26/17 04:00 97.6 109 19 107/75 100 09/26/17 00:00 98.2 104 20 111/79 100 09/25/17 22:32 85 18 Room Air 09/25/17 20:00 98.3 109 20 113/81 99 09/25/17 19:08 96.8 09/25/17 16:00 96.8 100 20 108/77 94 Intake and Output 09/25/17 09/26/17 19:00 07:00 Intake Total 100 ml 1200 ml Output Total 175 ml Balance 100 ml 1025 ml IV Total 100 ml 1200 ml Stool Total 5 ml Drainage Total 70 ml Other 100 ml # Voids 5 2 # Bowel Movements 2 Laboratory Tests 09/26/17 06:25: White Blood Count 13.3H, Red Blood Count 4.56, Hemoglobin 12.9, Hematocrit 40.6 , Mean Corpuscular Volume 89, Mean Corpuscular Hemoglobin 28.3, Mean Corpuscular Hemoglobin Concent 31.9L, Red Cell Distribution Width 15.5H, Platelet Count 503H, Mean Platelet Volume 4.7L, Neutrophils (%) (Auto) , Lymphocytes (%) (Auto) , Monocytes (%) (Auto) , Eosinophils (%) (Auto) , Basophils (%) (Auto) , Differential Total Cells Counted 100, Neutrophils % ( Manual) 96H, Lymphocytes % (Manual) 2L, Monocytes % (Manual) 2, Eosinophils % ( Manual) 0, Basophils % (Manual) 0, Band Neutrophils 0, Platelet Estimate Adequate, Platelet Morphology Normal, Red Blood Cell Morphology Normal, Sodium Level 135L, Potassium Level 5.3H, Chloride Level 98, Carbon Dioxide Level 34H, Anion Gap 3L, Blood Urea Nitrogen 2L, Creatinine 0.5L, Estimat Glomerular Filtration Rate > 60, Glucose Level 115H, Calcium Level 9.7, Total Bilirubin 2.5H, Direct Bilirubin 1.6H, Aspartate Amino Transf (AST/SGOT) 17, Alanine Aminotransferase (ALT/SGPT) 18, Alkaline Phosphatase 107, Total Protein 6.1L, Albumin 1.5L, Globulin 4.6, Albumin/Globulin Ratio 0.3L Height (Feet): 5 Height (Inches): 3.00 Weight (Pounds): 72 General Appearance: lethargic EENT: normal ENT inspection Neck: normal alignment Cardiovascular: normal peripheral pulses, normal rate, regular rhythm Respiratory/Chest: chest wall non-tender, lungs clear, normal breath sounds Abdomen: normal bowel sounds, non tender, soft Extremities: normal inspection Edema: no edema noted Arm (L), no edema noted Arm (R), no edema noted Leg (L), no edema noted Leg (R), no edema noted Pedal (L), no edema noted Pedal (R), no edema noted Generalized Neurologic: responsive, motor weakness Skin: normal pigmentation, warm/dry SONIDO FELICIANO Sep 26, 2017 13:49
--- NOTE | 2017-09-26 14:09 | General Surgery Progress Note ---
General Surgery-Progress Note Objective Last 24 Hour Vital Signs Date Time Temp Pulse Resp B/P (MAP) Pulse Ox O2 Delivery O2 Flow Rate FiO2 09/26/17 11:35 97.5 105 20 127/74 96 09/26/17 08:33 105 18 Room Air 09/26/17 08:24 97.4 95 19 111/78 96 09/26/17 04:00 97.6 109 19 107/75 100 09/26/17 00:00 98.2 104 20 111/79 100 09/25/17 22:32 85 18 Room Air 09/25/17 20:00 98.3 109 20 113/81 99 09/25/17 19:08 96.8 09/25/17 16:00 96.8 100 20 108/77 94 I&O Intake and Output 09/25/17 09/26/17 19:00 07:00 Intake Total 100 ml 1200 ml Output Total 175 ml Balance 100 ml 1025 ml IV Total 100 ml 1200 ml Stool Total 5 ml Drainage Total 70 ml Other 100 ml # Voids 5 2 # Bowel Movements 2 Wound: other - packing Drains: james Respiratory: clear Abdomen: soft, flat, tenderness, absent bowel sounds Extremities: no tenderness Laboratory Tests Test 09/26/17 06:25 White Blood Count 13.3 K/UL (4.8-10.8) H Red Blood Count 4.56 M/UL (4.20-5.40) Hemoglobin 12.9 G/DL (12.0-16.0) Hematocrit 40.6 % (37.0-47.0) Mean Corpuscular Volume 89 FL (80-99) Mean Corpuscular Hemoglobin 28.3 PG (27.0-31.0) Mean Corpuscular Hemoglobin Concent 31.9 G/DL (32.0-36.0) L Red Cell Distribution Width 15.5 % (11.6-14.8) H Platelet Count 503 K/UL (150-450) H Mean Platelet Volume 4.7 FL (6.5-10.1) L Neutrophils (%) (Auto) % (45.0-75.0) Lymphocytes (%) (Auto) % (20.0-45.0) Monocytes (%) (Auto) % (1.0-10.0) Eosinophils (%) (Auto) % (0.0-3.0) Basophils (%) (Auto) % (0.0-2.0) Differential Total Cells Counted 100 Neutrophils % (Manual) 96 % (45-75) H Lymphocytes % (Manual) 2 % (20-45) L Monocytes % (Manual) 2 % (1-10) Eosinophils % (Manual) 0 % (0-3) Basophils % (Manual) 0 % (0-2) Band Neutrophils 0 % (0-8) Platelet Estimate Adequate Platelet Morphology Normal Red Blood Cell Morphology Normal Sodium Level 135 MMOL/L (136-145) L Potassium Level 5.3 MMOL/L (3.5-5.1) H Chloride Level 98 MMOL/L (98-107) Carbon Dioxide Level 34 MMOL/L (21-32) H Anion Gap 3 mmol/L (5-15) L Blood Urea Nitrogen 2 mg/dL (7-18) L Creatinine 0.5 MG/DL (0.55-1.30) L Estimat Glomerular Filtration Rate > 60 mL/min (>60) Glucose Level 115 MG/DL (74-106) H Calcium Level 9.7 MG/DL (8.5-10.1) Total Bilirubin 2.5 MG/DL (0.2-1.0) H Direct Bilirubin 1.6 MG/DL (0.0-0.3) H Aspartate Amino Transf (AST/SGOT) 17 U/L (15-37) Alanine Aminotransferase (ALT/SGPT) 18 U/L (12-78) Alkaline Phosphatase 107 U/L (46-116) Total Protein 6.1 G/DL (6.4-8.2) L Albumin 1.5 G/DL (3.4-5.0) L Globulin 4.6 g/dL Albumin/Globulin Ratio 0.3 (1.0-2.7) L Assessment Post-op Diagnosis perforation of cecum and recto-sigmoid Plan Additional Comments continue IV antibiotics DWAYNE OLIVER Sep 26, 2017 14:09
[2017-09-26 15:56] VITALS: BP 111/74
--- NOTE | 2017-09-26 17:26 | Cardiology Progress Note ---
Assessment/Plan Assessment/Plan 1. Sinus tachycardia, most likely due to volume depletion, continue hydration. 2. Hypotension, due to intravascular volume depression consider hydration. 3. History of cervical cancer, status post chemotherapy. Subjective Subjective No cardiac events. Denies chest pain or SOB. Objective Last 24 Hour Vital Signs Date Time Temp Pulse Resp B/P (MAP) Pulse Ox O2 Delivery O2 Flow Rate FiO2 09/26/17 15:56 97.8 109 21 111/74 96 09/26/17 11:35 97.5 105 20 127/74 96 09/26/17 08:33 105 18 Room Air 09/26/17 08:24 97.4 95 19 111/78 96 09/26/17 04:00 97.6 109 19 107/75 100 09/26/17 00:00 98.2 104 20 111/79 100 09/25/17 22:32 85 18 Room Air 09/25/17 20:00 98.3 109 20 113/81 99 09/25/17 19:08 96.8 Intake and Output 09/25/17 09/26/17 19:00 07:00 Intake Total 100 ml 1200 ml Output Total 175 ml Balance 100 ml 1025 ml IV Total 100 ml 1200 ml Stool Total 5 ml Drainage Total 70 ml Other 100 ml # Voids 5 2 # Bowel Movements 2 Laboratory Tests Test 09/26/17 06:25 White Blood Count 13.3 K/UL (4.8-10.8) H Red Blood Count 4.56 M/UL (4.20-5.40) Hemoglobin 12.9 G/DL (12.0-16.0) Hematocrit 40.6 % (37.0-47.0) Mean Corpuscular Volume 89 FL (80-99) Mean Corpuscular Hemoglobin 28.3 PG (27.0-31.0) Mean Corpuscular Hemoglobin Concent 31.9 G/DL (32.0-36.0) L Red Cell Distribution Width 15.5 % (11.6-14.8) H Platelet Count 503 K/UL (150-450) H Mean Platelet Volume 4.7 FL (6.5-10.1) L Neutrophils (%) (Auto) % (45.0-75.0) Lymphocytes (%) (Auto) % (20.0-45.0) Monocytes (%) (Auto) % (1.0-10.0) Eosinophils (%) (Auto) % (0.0-3.0) Basophils (%) (Auto) % (0.0-2.0) Differential Total Cells Counted 100 Neutrophils % (Manual) 96 % (45-75) H Lymphocytes % (Manual) 2 % (20-45) L Monocytes % (Manual) 2 % (1-10) Eosinophils % (Manual) 0 % (0-3) Basophils % (Manual) 0 % (0-2) Band Neutrophils 0 % (0-8) Platelet Estimate Adequate Platelet Morphology Normal Red Blood Cell Morphology Normal Sodium Level 135 MMOL/L (136-145) L Potassium Level 5.3 MMOL/L (3.5-5.1) H Chloride Level 98 MMOL/L (98-107) Carbon Dioxide Level 34 MMOL/L (21-32) H Anion Gap 3 mmol/L (5-15) L Blood Urea Nitrogen 2 mg/dL (7-18) L Creatinine 0.5 MG/DL (0.55-1.30) L Estimat Glomerular Filtration Rate > 60 mL/min (>60) Glucose Level 115 MG/DL (74-106) H Calcium Level 9.7 MG/DL (8.5-10.1) Total Bilirubin 2.5 MG/DL (0.2-1.0) H Direct Bilirubin 1.6 MG/DL (0.0-0.3) H Aspartate Amino Transf (AST/SGOT) 17 U/L (15-37) Alanine Aminotransferase (ALT/SGPT) 18 U/L (12-78) Alkaline Phosphatase 107 U/L (46-116) Total Protein 6.1 G/DL (6.4-8.2) L Albumin 1.5 G/DL (3.4-5.0) L Globulin 4.6 g/dL Albumin/Globulin Ratio 0.3 (1.0-2.7) L Objective HEENT: Atraumatic and normocephalic. Anicteric. Pupils are equal, round, and reactive to light and accommodation. There is conjunctival pallor. NECK: JVP less than 5 cm. No carotid bruit. Carotid upstrokes 2+ bilaterally. CARDIOVASCULAR: Normal S1 and S2. Regular rate and rhythm. Tachycardic. No murmurs, gallops, or rubs. LUNGS: Clear to auscultation bilaterally. ABDOMEN: Soft, nontender, and nondistended. No hepatosplenomegaly. Positive bowel sounds. EXTREMITIES: No evidence of edema, clubbing, or cyanosis. JUDITH WATSON Sep 26, 2017 17:25
[2017-09-26] MEDS: Gentamicin inj 160 MG in NS 110 ML IVPB SCH (17:43)
[2017-09-26] MEDS: D5 1/2NS 1,000 ML IV SCH ×2 (17:44→22:38)
[2017-09-26 20:00] VITALS: BP 113/73
[2017-09-26] MEDS: Dyna-Hex 2% Top Sol 2oz TOPIC SCH (20:18)
[2017-09-26] MEDS: Iron Sucrose 100 MG in NS 55 ML IV SCH (20:18)
--- NOTE | 2017-09-26 23:49 | General Progress Note ---
Assessment/Plan Status: stable Assessment/Plan Assessment and Recs: # Leukocytosis is likely reactive from Acute abdominal pain 2 to perforation with perforated cecum and rectosigmoid s/p exp laparotomy with partial R hemicolectomy --> Trend wbc count --> improved from yesterday, continue to closely monitor. # Cervical Ca s/p surgery and radiation, has not received any chemotherapy recently # Anemia of chronic disease --> w/u has been reviewed --> hgb goal is >7 --> Has been mild, does not need blood transfusion # Thrombocytosis is likely related to chronic reactive process --> currently improved # Anemia of GI bleeding --> GI followup. # Severe protein calorie malnutrition Subjective Date patient seen: Sep 26, 2017 Constitutional: Denies: no symptoms, chills, diaphoresis, fever, malaise, weakness, other HEENT: Denies: no symptoms, eye pain, blurred vision, tearing, double vision, ear pain, ear discharge, nose pain, nose congestion, throat pain, throat swelling, mouth pain, mouth swelling, other Cardiovascular: Denies: no symptoms, chest pain, edema, irregular heart rate, lightheadedness, palpitations, syncope, other Respiratory: Denies: no symptoms, cough, orthopnea, shortness of breath, SOB with excertion, SOB at rest, sputum, stridor, wheezing, other Gastrointestinal/Abdominal: Denies: no symptoms, abdomen distended, abdominal pain, black stools, tarry stools, blood in stool, constipated, diarrhea, difficulty swallowing, nausea, poor appetite, poor fluid intake, rectal bleeding , vomiting, other Genitourinary: Denies: no symptoms, burning, discharge, frequency, flank pain, hematuria, incontinence, pain, urgency, other Allergies: Coded Allergies: No Known Allergies (Unverified , 09/10/17) Subjective Lethargic. H/H stable. No fever. Objective Last 24 Hour Vital Signs Date Time Temp Pulse Resp B/P (MAP) Pulse Ox O2 Delivery O2 Flow Rate FiO2 09/26/17 20:00 97.2 107 19 113/73 99 09/26/17 19:10 99 18 Room Air 09/26/17 15:56 97.8 109 21 111/74 96 09/26/17 11:35 97.5 105 20 127/74 96 09/26/17 08:33 105 18 Room Air 09/26/17 08:24 97.4 95 19 111/78 96 09/26/17 04:00 97.6 109 19 107/75 100 09/26/17 00:00 98.2 104 20 111/79 100 Intake and Output 09/25/17 09/26/17 19:00 07:00 Intake Total 100 ml 1200 ml Output Total 175 ml Balance 100 ml 1025 ml IV Total 100 ml 1200 ml Stool Total 5 ml Drainage Total 70 ml Other 100 ml # Voids 5 2 # Bowel Movements 2 Laboratory Tests 09/26/17 06:25: White Blood Count 13.3H, Red Blood Count 4.56, Hemoglobin 12.9, Hematocrit 40.6 , Mean Corpuscular Volume 89, Mean Corpuscular Hemoglobin 28.3, Mean Corpuscular Hemoglobin Concent 31.9L, Red Cell Distribution Width 15.5H, Platelet Count 503H, Mean Platelet Volume 4.7L, Neutrophils (%) (Auto) , Lymphocytes (%) (Auto) , Monocytes (%) (Auto) , Eosinophils (%) (Auto) , Basophils (%) (Auto) , Differential Total Cells Counted 100, Neutrophils % ( Manual) 96H, Lymphocytes % (Manual) 2L, Monocytes % (Manual) 2, Eosinophils % ( Manual) 0, Basophils % (Manual) 0, Band Neutrophils 0, Platelet Estimate Adequate, Platelet Morphology Normal, Red Blood Cell Morphology Normal, Sodium Level 135L, Potassium Level 5.3H, Chloride Level 98, Carbon Dioxide Level 34H, Anion Gap 3L, Blood Urea Nitrogen 2L, Creatinine 0.5L, Estimat Glomerular Filtration Rate > 60, Glucose Level 115H, Calcium Level 9.7, Total Bilirubin 2.5H, Direct Bilirubin 1.6H, Aspartate Amino Transf (AST/SGOT) 17, Alanine Aminotransferase (ALT/SGPT) 18, Alkaline Phosphatase 107, Total Protein 6.1L, Albumin 1.5L, Globulin 4.6, Albumin/Globulin Ratio 0.3L Height (Feet): 5 Height (Inches): 3.00 Weight (Pounds): 72 General Appearance: lethargic EENT: normal ENT inspection Abdomen: normal bowel sounds, non tender, soft Skin: warm/dry Chris Spencer Sep 26, 2017 23:49
[2017-09-27] VITALS: BP 121/80
[2017-09-27 04:03] VITALS: BP 131/73
[2017-09-27] MEDS: D5 1/2NS 1,000 ML IV SCH ×2 (06:09→18:10)
[2017-09-27 08:00] VITALS: BP 114/79
[2017-09-27 08:00] LABS: HEMATOCRIT 39.9 % (37.0-47.0); HEMOGLOBIN 12.9 G/DL (12.0-16.0); MEAN CORPUSCULAR VOLUME 89 FL (80-99); PLATELET COUNT 495 K/UL (150-450); RED CELL DISTRIBUTION WIDTH 15.6 % (11.6-14.8); WHITE BLOOD COUNT 12.4 K/UL (4.8-10.8)
[2017-09-27] MEDS: Pantoprazole Inj IVP SCH (08:19)
[2017-09-27 08:20] LABS: ANION GAP 6 mmol/L (5-15); BLOOD UREA NITROGEN 2 mg/dL (7-18); CALCIUM 8.9 MG/DL (8.5-10.1); CARBON DIOXIDE 33 MMOL/L (21-32); CHLORIDE 96 MMOL/L (98-107); CREATININE 0.4 MG/DL (0.55-1.30); PHOSPHORUS 3.9 MG/DL (2.5-4.9); POTASSIUM 3.9 MMOL/L (3.5-5.1); SODIUM 135 MMOL/L (136-145)
[2017-09-27] MEDS: Heparin 5000 units/ml inj SUBQ SCH ×2 (08:21→21:47)
[2017-09-27] MEDS ORDERED: Sodium Phosphate 30 MM in Sodium Chloride 500ML 550 ML IVPB ONE (11:00)
--- NOTE | 2017-09-27 11:51 | GI Progress Note ---
Assessment/Plan Problems: (1) Perforation of cecum ICD Codes: K63.1 - Perforation of intestine (nontraumatic) SNOMED: 225715850 (2) Perforated sigmoid colon ICD Codes: K63.1 - Perforation of intestine (nontraumatic) SNOMED: 128091832 (3) Intra-abdominal free air of unknown etiology ICD Codes: K66.8 - Other specified disorders of peritoneum SNOMED: 28084301 (4) Abdominal pain ICD Codes: R10.9 - Unspecified abdominal pain SNOMED: 67202547 Qualifiers: Qualified Codes: R10.13 - Epigastric pain (5) GI bleed ICD Codes: K92.2 - Gastrointestinal hemorrhage, unspecified SNOMED: 78617952 Qualifiers: Qualified Codes: K92.2 - Gastrointestinal hemorrhage, unspecified (6) Anemia ICD Codes: D64.9 - Anemia, unspecified SNOMED: 228051181 Qualifiers: Qualified Codes: D64.9 - Anemia, unspecified Status: progressing Status Narrative Discussed with Dr. Jordan. Assessment/Plan post op care fu surgical recs NPO + IVFs, TPN scheduled tonight NGT to LIS per surgery PT evaluation pain control fu labs Subjective Subjective hungry generalized weakness Objective Last 24 Hour Vital Signs Date Time Temp Pulse Resp B/P (MAP) Pulse Ox O2 Delivery O2 Flow Rate FiO2 09/27/17 08:00 97.7 109 18 114/79 96 09/27/17 07:45 56 18 Room Air 09/27/17 04:03 97.5 103 19 131/73 93 09/27/17 00:00 97.5 110 19 121/80 98 09/26/17 20:00 97.2 107 19 113/73 99 09/26/17 19:10 99 18 Room Air 09/26/17 15:56 97.8 109 21 111/74 96 Intake and Output 09/26/17 09/27/17 19:00 07:00 Intake Total 864 ml 1375 ml Output Total 890 ml 70 ml Balance -26 ml 1305 ml Intake Oral 0 ml IV Total 864 ml 1375 ml Output Urine Total 800 ml Stool Total 0 ml Gastric Drainage Total 70 ml Drainage Total 20 ml 10 ml Other 60 ml # Voids 3 Laboratory Tests Test 09/27/17 06:40 White Blood Count 12.4 K/UL (4.8-10.8) H Red Blood Count 4.50 M/UL (4.20-5.40) Hemoglobin 12.9 G/DL (12.0-16.0) Hematocrit 39.9 % (37.0-47.0) Mean Corpuscular Volume 89 FL (80-99) Mean Corpuscular Hemoglobin 28.7 PG (27.0-31.0) Mean Corpuscular Hemoglobin Concent 32.4 G/DL (32.0-36.0) Red Cell Distribution Width 15.6 % (11.6-14.8) H Platelet Count 495 K/UL (150-450) H Mean Platelet Volume 4.7 FL (6.5-10.1) L Neutrophils (%) (Auto) % (45.0-75.0) Lymphocytes (%) (Auto) % (20.0-45.0) Monocytes (%) (Auto) % (1.0-10.0) Eosinophils (%) (Auto) % (0.0-3.0) Basophils (%) (Auto) % (0.0-2.0) Differential Total Cells Counted 100 Neutrophils % (Manual) 93 % (45-75) H Lymphocytes % (Manual) 4 % (20-45) L Monocytes % (Manual) 3 % (1-10) Eosinophils % (Manual) 0 % (0-3) Basophils % (Manual) 0 % (0-2) Band Neutrophils 0 % (0-8) Platelet Estimate Adequate Platelet Morphology Normal Hypochromasia 1+ Anisocytosis 1+ Sodium Level 135 MMOL/L (136-145) L Potassium Level 3.9 MMOL/L (3.5-5.1) Chloride Level 96 MMOL/L (98-107) L Carbon Dioxide Level 33 MMOL/L (21-32) H Anion Gap 6 mmol/L (5-15) Blood Urea Nitrogen 2 mg/dL (7-18) L Creatinine 0.4 MG/DL (0.55-1.30) L Estimat Glomerular Filtration Rate > 60 mL/min (>60) Glucose Level 116 MG/DL (74-106) H Calcium Level 8.9 MG/DL (8.5-10.1) Phosphorus Level 3.9 MG/DL (2.5-4.9) Magnesium Level 1.4 MG/DL (1.8-2.4) L Height (Feet): 5 Height (Inches): 3.00 Weight (Pounds): 72 General Appearance: WD/WN, no apparent distress, alert, thin Cardiovascular: normal rate Respiratory/Chest: normal breath sounds, no respiratory distress Abdominal Exam: normal bowel sounds, non tender, soft, other - colostomy Extremities: normal range of motion, non-tender Cece Gerard N.P. Sep 27, 2017 11:51
[2017-09-27 12:00] VITALS: BP 112/75
--- NOTE | 2017-09-27 13:44 | Infectious Diseases Prog Note ---
Assessment/Plan Assessment/Plan A; Perforated bowel Peritonitis withE. coli, Enterococcus, C. albicans Cervical cancer P: Continue Zosyn Add Fluconazole Subjective ROS Limited/Unobtainable: No Respiratory: Reports: productive cough Musculoskeletal: Reports: pain Allergies: Coded Allergies: No Known Allergies (Unverified , 09/10/17) Objective Vital Signs Last 24 Hour Vital Signs Date Time Temp Pulse Resp B/P (MAP) Pulse Ox O2 Delivery O2 Flow Rate FiO2 09/27/17 12:00 97.7 94 18 112/75 97 09/27/17 08:00 97.7 109 18 114/79 96 09/27/17 07:45 56 18 Room Air 09/27/17 04:03 97.5 103 19 131/73 93 09/27/17 00:00 97.5 110 19 121/80 98 09/26/17 20:00 97.2 107 19 113/73 99 09/26/17 19:10 99 18 Room Air 09/26/17 15:56 97.8 109 21 111/74 96 Height (Feet): 5 Height (Inches): 3.00 Weight (Pounds): 72 General Appearance: cachetic HEENT: thrush Respiratory/Chest: lungs clear Cardiovascular: normal rate, other - RIJ line Abdomen: other - surical dressing, colostomy, drains Extremities: no edema Neurologic/Psychiatric: alert, oriented x 3, responsive Laboratory Tests Test 09/27/17 06:40 White Blood Count 12.4 K/UL (4.8-10.8) H Red Blood Count 4.50 M/UL (4.20-5.40) Hemoglobin 12.9 G/DL (12.0-16.0) Hematocrit 39.9 % (37.0-47.0) Mean Corpuscular Volume 89 FL (80-99) Mean Corpuscular Hemoglobin 28.7 PG (27.0-31.0) Mean Corpuscular Hemoglobin Concent 32.4 G/DL (32.0-36.0) Red Cell Distribution Width 15.6 % (11.6-14.8) H Platelet Count 495 K/UL (150-450) H Mean Platelet Volume 4.7 FL (6.5-10.1) L Neutrophils (%) (Auto) % (45.0-75.0) Lymphocytes (%) (Auto) % (20.0-45.0) Monocytes (%) (Auto) % (1.0-10.0) Eosinophils (%) (Auto) % (0.0-3.0) Basophils (%) (Auto) % (0.0-2.0) Differential Total Cells Counted 100 Neutrophils % (Manual) 93 % (45-75) H Lymphocytes % (Manual) 4 % (20-45) L Monocytes % (Manual) 3 % (1-10) Eosinophils % (Manual) 0 % (0-3) Basophils % (Manual) 0 % (0-2) Band Neutrophils 0 % (0-8) Platelet Estimate Adequate Platelet Morphology Normal Hypochromasia 1+ Anisocytosis 1+ Sodium Level 135 MMOL/L (136-145) L Potassium Level 3.9 MMOL/L (3.5-5.1) Chloride Level 96 MMOL/L (98-107) L Carbon Dioxide Level 33 MMOL/L (21-32) H Anion Gap 6 mmol/L (5-15) Blood Urea Nitrogen 2 mg/dL (7-18) L Creatinine 0.4 MG/DL (0.55-1.30) L Estimat Glomerular Filtration Rate > 60 mL/min (>60) Glucose Level 116 MG/DL (74-106) H Calcium Level 8.9 MG/DL (8.5-10.1) Phosphorus Level 3.9 MG/DL (2.5-4.9) Magnesium Level 1.4 MG/DL (1.8-2.4) L Current Medications Medications (Trade) Dose Ordered Sig/Francoise Route PRN Reason Start Time Stop Time Status Last Admin Dose Admin Acetaminophen (Tylenol) 650 mg Q4H PRN RECTAL FEVER 09/25/17 16:30 10/22/17 16:29 Albuterol/ Ipratropium (Albuterol/ Ipratropium) 3 ml Q4H PRN HHN SHORTNESS OF BREATH 09/25/17 16:30 09/28/17 16:29 Chlorhexidine Gluconate (Kenia-Hex 2%) 1 applic DAILY@1999 TOPIC 09/25/17 20:00 10/24/17 19:59 09/26/17 20:18 Dextrose (Dextrose 50%) No Dose PRN IV hypoglycemia 09/28/17 00:00 10/28/17 00:00 Dextrose/Sodium Chloride 1,000 ml @ 125 mls/hr Q8H IV 09/26/17 17:30 09/27/17 19:59 09/27/17 06:09 Fat Emulsion Intravenous 168 ml/Amino Acids/ Electrolytes/ Dextrose 1,320 ml @ 55 mls/hr Q24H IV 09/27/17 20:00 10/27/17 19:59 Gentamicin Protocol (Gentamicin pharmacy to dose) 1 ea DAILY PRN MISC Per rx protocol 09/26/17 09:00 10/24/17 23:59 Gentamicin Sulfate 160 mg/ Sodium Chloride 114 ml @ 114 mls/hr Q24H IVPB 09/25/17 18:00 10/01/17 17:59 09/26/17 17:43 Heparin Sodium (Porcine) (Heparin 5000 units/ml) 5,000 units EVERY 12 HOURS SUBQ 09/25/17 21:00 10/23/17 08:59 09/27/17 08:21 Hydromorphone HCl (Dilaudid) 1 mg Q3H PRN IVP pain score 4-6 09/25/17 16:45 09/29/17 19:43 Hydromorphone HCl (Dilaudid) 3 mg Q2H PRN IVP pain score 7-10 09/25/17 16:30 09/30/17 16:29 09/27/17 12:42 Insulin Aspart (NovoLOG) No Dose Q6HR SUBQ 09/28/17 00:00 10/28/17 00:00 Iron Sucrose 100 mg/Sodium Chloride 60 ml @ 240 mls/hr BEDTIME IV 09/25/17 21:00 09/27/17 21:01 09/26/17 20:18 Levofloxacin 150 ml @ 100 mls/hr Q24H IVPB 09/26/17 15:00 10/02/17 14:59 09/26/17 14:29 Lorazepam (Ativan) 1 mg Q6H PRN ORAL For Anxiety 09/25/17 16:30 09/29/17 16:29 Magnesium Sulfate 100 ml @ 100 mls/hr Q1H IVPB 09/27/17 17:00 09/27/17 18:59 Ondansetron HCl (Zofran) 4 mg Q6H PRN IVP Nausea & Vomiting 09/25/17 16:30 10/22/17 16:29 Pantoprazole (Protonix) 40 mg DAILY IVP 09/26/17 09:00 10/23/17 08:59 09/27/17 08:19 Phytonadione (Vitamin K) 10 mg QWEEK SUBQ 09/27/17 20:00 10/27/17 19:59 Sodium Phosphate 30 mm/Sodium Chloride 560 ml @ 93.333 mls/ hr ONCE ONCE IVPB 09/27/17 11:00 09/27/17 16:59 09/27/17 10:49 CHERYLE WOLFE Sep 27, 2017 13:44
--- NOTE | 2017-09-27 15:05 | General Progress Note ---
Assessment/Plan Problem List: (1) Anemia ICD Codes: D64.9 - Anemia, unspecified SNOMED: 122306038 Qualifiers: Qualified Codes: D64.9 - Anemia, unspecified (2) GI bleed ICD Codes: K92.2 - Gastrointestinal hemorrhage, unspecified SNOMED: 56797643 Qualifiers: Qualified Codes: K92.2 - Gastrointestinal hemorrhage, unspecified (3) Abdominal pain ICD Codes: R10.9 - Unspecified abdominal pain SNOMED: 42758838 Qualifiers: Qualified Codes: R10.13 - Epigastric pain Status: unchanged Assessment/Plan ot pt diet ng cbc bmp am gi f/u id eval Subjective Constitutional: Reports: weakness Allergies: Coded Allergies: No Known Allergies (Unverified , 09/10/17) All Systems: reviewed and negative except above Subjective ng sl nauseus Objective Last 24 Hour Vital Signs Date Time Temp Pulse Resp B/P (MAP) Pulse Ox O2 Delivery O2 Flow Rate FiO2 09/27/17 12:00 97.7 94 18 112/75 97 09/27/17 08:00 97.7 109 18 114/79 96 09/27/17 07:45 56 18 Room Air 09/27/17 04:03 97.5 103 19 131/73 93 09/27/17 00:00 97.5 110 19 121/80 98 09/26/17 20:00 97.2 107 19 113/73 99 09/26/17 19:10 99 18 Room Air 09/26/17 15:56 97.8 109 21 111/74 96 Intake and Output 09/26/17 09/27/17 19:00 07:00 Intake Total 864 ml 1375 ml Output Total 890 ml 70 ml Balance -26 ml 1305 ml Intake Oral 0 ml IV Total 864 ml 1375 ml Output Urine Total 800 ml Stool Total 0 ml Gastric Drainage Total 70 ml Drainage Total 20 ml 10 ml Other 60 ml # Voids 3 Laboratory Tests 09/27/17 06:40: White Blood Count 12.4H, Red Blood Count 4.50, Hemoglobin 12.9, Hematocrit 39.9 , Mean Corpuscular Volume 89, Mean Corpuscular Hemoglobin 28.7, Mean Corpuscular Hemoglobin Concent 32.4, Red Cell Distribution Width 15.6H, Platelet Count 495H, Mean Platelet Volume 4.7L, Neutrophils (%) (Auto) , Lymphocytes (%) (Auto) , Monocytes (%) (Auto) , Eosinophils (%) (Auto) , Basophils (%) (Auto) , Differential Total Cells Counted 100, Neutrophils % ( Manual) 93H, Lymphocytes % (Manual) 4L, Monocytes % (Manual) 3, Eosinophils % ( Manual) 0, Basophils % (Manual) 0, Band Neutrophils 0, Platelet Estimate Adequate, Platelet Morphology Normal, Hypochromasia 1+, Anisocytosis 1+, Sodium Level 135L, Potassium Level 3.9, Chloride Level 96L, Carbon Dioxide Level 33H, Anion Gap 6, Blood Urea Nitrogen 2L, Creatinine 0.4L, Estimat Glomerular Filtration Rate > 60, Glucose Level 116H, Calcium Level 8.9, Phosphorus Level 3.9, Magnesium Level 1.4L Height (Feet): 5 Height (Inches): 3.00 Weight (Pounds): 72 General Appearance: alert EENT: normal ENT inspection Neck: normal alignment Cardiovascular: normal peripheral pulses, normal rate, regular rhythm Respiratory/Chest: chest wall non-tender, lungs clear, normal breath sounds Abdomen: hypoactive bowel sounds Extremities: normal inspection Edema: no edema noted Arm (L), no edema noted Arm (R), no edema noted Leg (L), no edema noted Leg (R), no edema noted Pedal (L), no edema noted Pedal (R), no edema noted Generalized Neurologic: responsive, motor weakness Skin: normal pigmentation, warm/dry SONIDO FELICIANO Sep 27, 2017 15:05
--- NOTE | 2017-09-27 16:12 | Pulmonology Progress Note ---
Assessment/Plan Problems: (1) Intra-abdominal free air of unknown etiology (2) Perforated sigmoid colon (3) Sepsis Assessment/Plan iv abx iv fluid check cultures pain management continue NG suction chagne IV fluid check electroltyes. still npo pt wants to eat, awaiting surgeons approval Subjective ROS Limited/Unobtainable: No Interval Events: pain is better Allergies: Coded Allergies: No Known Allergies (Unverified , 09/10/17) Objective Last 24 Hour Vital Signs Date Time Temp Pulse Resp B/P (MAP) Pulse Ox O2 Delivery O2 Flow Rate FiO2 09/27/17 12:00 97.7 94 18 112/75 97 09/27/17 08:00 97.7 109 18 114/79 96 09/27/17 07:45 56 18 Room Air 09/27/17 04:03 97.5 103 19 131/73 93 09/27/17 00:00 97.5 110 19 121/80 98 09/26/17 20:00 97.2 107 19 113/73 99 09/26/17 19:10 99 18 Room Air Intake and Output 09/26/17 09/27/17 19:00 07:00 Intake Total 864 ml 1375 ml Output Total 890 ml 70 ml Balance -26 ml 1305 ml Intake Oral 0 ml IV Total 864 ml 1375 ml Output Urine Total 800 ml Stool Total 0 ml Gastric Drainage Total 70 ml Drainage Total 20 ml 10 ml Other 60 ml # Voids 3 General Appearance: cachetic HEENT: normocephalic, anicteric Respiratory/Chest: chest wall non-tender, lungs clear Breasts: no masses Cardiovascular: normal rate Abdomen: normal bowel sounds, no organomegaly Genitourinary: normal external genitalia Skin: no rash Laboratory Tests 09/27/17 06:40: White Blood Count 12.4H, Red Blood Count 4.50, Hemoglobin 12.9, Hematocrit 39.9 , Mean Corpuscular Volume 89, Mean Corpuscular Hemoglobin 28.7, Mean Corpuscular Hemoglobin Concent 32.4, Red Cell Distribution Width 15.6H, Platelet Count 495H, Mean Platelet Volume 4.7L, Neutrophils (%) (Auto) , Lymphocytes (%) (Auto) , Monocytes (%) (Auto) , Eosinophils (%) (Auto) , Basophils (%) (Auto) , Differential Total Cells Counted 100, Neutrophils % ( Manual) 93H, Lymphocytes % (Manual) 4L, Monocytes % (Manual) 3, Eosinophils % ( Manual) 0, Basophils % (Manual) 0, Band Neutrophils 0, Platelet Estimate Adequate, Platelet Morphology Normal, Hypochromasia 1+, Anisocytosis 1+, Sodium Level 135L, Potassium Level 3.9, Chloride Level 96L, Carbon Dioxide Level 33H, Anion Gap 6, Blood Urea Nitrogen 2L, Creatinine 0.4L, Estimat Glomerular Filtration Rate > 60, Glucose Level 116H, Calcium Level 8.9, Phosphorus Level 3.9, Magnesium Level 1.4L Current Medications Medications (Trade) Dose Ordered Sig/Francoise Route PRN Reason Start Time Stop Time Status Last Admin Dose Admin Acetaminophen (Tylenol) 650 mg Q4H PRN RECTAL FEVER 09/25/17 16:30 10/22/17 16:29 Albuterol/ Ipratropium (Albuterol/ Ipratropium) 3 ml Q4H PRN HHN SHORTNESS OF BREATH 09/25/17 16:30 09/28/17 16:29 Chlorhexidine Gluconate (Kenia-Hex 2%) 1 applic DAILY@1999 TOPIC 09/25/17 20:00 10/24/17 19:59 09/26/17 20:18 Dextrose (Dextrose 50%) No Dose PRN IV hypoglycemia 09/28/17 00:00 10/28/17 00:00 Dextrose/Sodium Chloride 1,000 ml @ 125 mls/hr Q8H IV 09/26/17 17:30 09/27/17 19:59 09/27/17 06:09 Fat Emulsion Intravenous 168 ml/Amino Acids/ Electrolytes/ Dextrose 1,320 ml @ 55 mls/hr Q24H IV 09/27/17 20:00 10/27/17 19:59 Fluconazole/ Sodium Chloride 100 ml @ 100 mls/hr Q24H IV 09/27/17 18:00 10/04/17 17:59 Heparin Sodium (Porcine) (Heparin 5000 units/ml) 5,000 units EVERY 12 HOURS SUBQ 09/25/17 21:00 10/23/17 08:59 09/27/17 08:21 Hydromorphone HCl (Dilaudid) 1 mg Q3H PRN IVP pain score 4-6 09/25/17 16:45 09/29/17 19:43 Hydromorphone HCl (Dilaudid) 3 mg Q2H PRN IVP pain score 7-10 09/25/17 16:30 09/30/17 16:29 09/27/17 14:45 Insulin Aspart (NovoLOG) No Dose Q6HR SUBQ 09/28/17 00:00 10/28/17 00:00 Iron Sucrose 100 mg/Sodium Chloride 60 ml @ 240 mls/hr BEDTIME IV 09/25/17 21:00 09/27/17 21:01 09/26/17 20:18 Lorazepam (Ativan) 1 mg Q6H PRN ORAL For Anxiety 09/25/17 16:30 09/29/17 16:29 Magnesium Sulfate 100 ml @ 100 mls/hr Q1H IVPB 09/27/17 17:00 09/27/17 18:59 Ondansetron HCl (Zofran) 4 mg Q6H PRN IVP Nausea & Vomiting 09/25/17 16:30 10/22/17 16:29 Pantoprazole (Protonix) 40 mg DAILY IVP 09/26/17 09:00 10/23/17 08:59 09/27/17 08:19 Phytonadione (Vitamin K) 10 mg QWEEK SUBQ 09/27/17 20:00 10/27/17 19:59 Piperacillin Sod/ Tazobactam Sod 3.375 gm/Dextrose 110 ml @ 27.5 mls/hr EVERY 8 HOURS IVPB 09/27/17 15:00 10/02/17 14:59 Sodium Phosphate 30 mm/Sodium Chloride 560 ml @ 93.333 mls/ hr ONCE ONCE IVPB 09/27/17 11:00 09/27/17 16:59 09/27/17 10:49 JL CHAVEZ Sep 27, 2017 16:12
--- NOTE | 2017-09-27 16:28 | General Progress Note ---
Progress Note Progress Note [id number] full note dictated LORRAINE GROVER Sep 27, 2017 16:28
[2017-09-27] MEDS: Piperacillin/Tazobactam 3.375 GM in D5W 110 ML IVPB SCH ×2 (16:29→22:39)
--- NOTE | 2017-09-27 17:30 | Consultation ---
DATE OF CONSULTATION: 09/27/2017 NEPHROLOGY CONSULTATION CONSULTING PHYSICIAN: Lakesha Zabala M.D. REFERRING PHYSICIAN: Dano Guillaume D.O. REASON FOR CONSULTATION: Electrolyte abnormality. HISTORY OF PRESENT ILLNESS: The patient is an unfortunate 32-year-old female with past medical history significant for history of cervical cancer status post chemotherapy and radiation therapy. Apparently, the patient was admitted earlier for increasing abdominal pain and found to have free air in the abdomen and had an exploratory laparotomy. The patient was also found to be very low in appetite and having diarrhea with blood in the stool. The patient was admitted in the hospital and over the course of hospital admission, the patient was found to have hyperkalemia and hyponatremia. I was called for management of renal disease and electrolyte imbalance. PAST MEDICAL HISTORY: 1. History of cervical cancer. 2. History of anemia. 3. History of hypotension. 4. History of exploratory laparotomy. MEDICATIONS: Including Tylenol p.r.n. pain. ALLERGIES: No known drug allergies. SOCIAL HISTORY: Denies any history of tobacco, alcohol, or drug use. REVIEW OF SYSTEMS: GENERAL: She complained of generalized weakness. Denied any fever, chills, or night sweats. HEAD AND NECK: Denies any dysphagia, odynophagia, blurry vision, headache, or neck stiffness. PULMONARY: No shortness of breath. No cough or sputum. CARDIOVASCULAR: Denies any chest pain or palpitation. GASTROINTESTINAL: Complaining of increasing abdominal pain and increasing abdominal girth. Had diarrhea and blood in the stool on admission. GENITOURINARY: Denies any dysuria, frequency, or hematuria. MUSCULOSKELETAL: Denies any weakness or numbness. PHYSICAL EXAMINATION: VITAL SIGNS: The patient has a temperature of 98 degrees, blood pressure of 113/73, pulse rate of 107, and respiratory rate of 18. HEAD AND NECK: No JVP. No LAD. No thyromegaly. Extraocular movement intact. Pupils are reactive to light and accommodation. LUNGS: Decreased breathing sounds. CARDIAC: Regular rate and rhythm. S1 and S2. No murmur. No rub. ABDOMEN: Distended. Bowel sounds are positive. Diffuse tenderness. No guarding. No rebound. EXTREMITIES: A 1+ to 2+ edema. No clubbing. No cyanosis. NEUROLOGIC: Cranial nerves II through XII within normal limits. Upper and lower extremities are grossly intact. LABORATORY VALUES: The patient had WBC count of , hemoglobin of 12.9, hematocrit of 39, and platelet count of 495,000. Chemistry revealed sodium of 135, potassium dropped from 5.3 to 3.9, chloride 99, bicarb 33, BUN of 2, and creatinine of 0.4. Glucose of 116. Calcium of 8.9. Magnesium of 1.4. Total bilirubin of 2.5. Direct bilirubin of 1.6. Albumin is only 1.5. UA specific gravity of 1.025, protein 1+, ketones 2+, had leukocyte esterase 3+, WBC of 10 to 15, RBCs 0 to 2, and bacteria negative. HCC is negative. ASSESSMENT: 1. Acute renal failure with hyperkalemia. Rule out obstructive uropathy. 2. Hyponatremia. 3. Malnutrition. 4. Intractable nausea, vomiting, and diarrhea. 5. Dehydration. 6. History of cervical cancer. PLAN: Plan for the patient is to obtain a UA. Check the random urine protein-creatinine ratio to calculate the proteinuria. Check the urine sodium and creatinine to calculate fractional excretion of sodium. Monitor renal function and electrolytes closely. Check the urine potassium. Low-potassium diet. Avoid any further nephrotoxics. Again, I would like to thank, Dr. Dano Guillaume, for allowing me to participate in the care of this patient. Lakesha Zabala M.D. DR: JUDIE JOB#: [id number] CC:
[2017-09-27] MEDS: Magnesium Sulfate 1gm/100ml IVPB SCH ×2 (18:09→19:28)
--- NOTE | 2017-09-27 18:47 | Cardiology Progress Note ---
Assessment/Plan Assessment/Plan 1. Sinus tachycardia, resolved, most likely due to volume depletion, continue hydration. 2. Hypotension, due to intravascular volume depletion, continue hydration. 3. History of cervical cancer, status post chemotherapy. Subjective Subjective Clinically the same. Denies chest pain or SOB. Objective Last 24 Hour Vital Signs Date Time Temp Pulse Resp B/P (MAP) Pulse Ox O2 Delivery O2 Flow Rate FiO2 09/27/17 12:00 97.7 94 18 112/75 97 09/27/17 08:00 97.7 109 18 114/79 96 09/27/17 07:45 56 18 Room Air 09/27/17 04:03 97.5 103 19 131/73 93 09/27/17 00:00 97.5 110 19 121/80 98 09/26/17 20:00 97.2 107 19 113/73 99 09/26/17 19:10 99 18 Room Air Intake and Output 09/26/17 09/27/17 19:00 07:00 Intake Total 864 ml 1375 ml Output Total 890 ml 70 ml Balance -26 ml 1305 ml Intake Oral 0 ml IV Total 864 ml 1375 ml Output Urine Total 800 ml Stool Total 0 ml Gastric Drainage Total 70 ml Drainage Total 20 ml 10 ml Other 60 ml # Voids 3 Laboratory Tests Test 09/27/17 06:40 White Blood Count 12.4 K/UL (4.8-10.8) H Red Blood Count 4.50 M/UL (4.20-5.40) Hemoglobin 12.9 G/DL (12.0-16.0) Hematocrit 39.9 % (37.0-47.0) Mean Corpuscular Volume 89 FL (80-99) Mean Corpuscular Hemoglobin 28.7 PG (27.0-31.0) Mean Corpuscular Hemoglobin Concent 32.4 G/DL (32.0-36.0) Red Cell Distribution Width 15.6 % (11.6-14.8) H Platelet Count 495 K/UL (150-450) H Mean Platelet Volume 4.7 FL (6.5-10.1) L Neutrophils (%) (Auto) % (45.0-75.0) Lymphocytes (%) (Auto) % (20.0-45.0) Monocytes (%) (Auto) % (1.0-10.0) Eosinophils (%) (Auto) % (0.0-3.0) Basophils (%) (Auto) % (0.0-2.0) Differential Total Cells Counted 100 Neutrophils % (Manual) 93 % (45-75) H Lymphocytes % (Manual) 4 % (20-45) L Monocytes % (Manual) 3 % (1-10) Eosinophils % (Manual) 0 % (0-3) Basophils % (Manual) 0 % (0-2) Band Neutrophils 0 % (0-8) Platelet Estimate Adequate Platelet Morphology Normal Hypochromasia 1+ Anisocytosis 1+ Sodium Level 135 MMOL/L (136-145) L Potassium Level 3.9 MMOL/L (3.5-5.1) Chloride Level 96 MMOL/L (98-107) L Carbon Dioxide Level 33 MMOL/L (21-32) H Anion Gap 6 mmol/L (5-15) Blood Urea Nitrogen 2 mg/dL (7-18) L Creatinine 0.4 MG/DL (0.55-1.30) L Estimat Glomerular Filtration Rate > 60 mL/min (>60) Glucose Level 116 MG/DL (74-106) H Calcium Level 8.9 MG/DL (8.5-10.1) Phosphorus Level 3.9 MG/DL (2.5-4.9) Magnesium Level 1.4 MG/DL (1.8-2.4) L Objective HEENT: Atraumatic and normocephalic. Anicteric. Pupils are equal, round, and reactive to light and accommodation. There is conjunctival pallor. NECK: JVP less than 5 cm. No carotid bruit. Carotid upstrokes 2+ bilaterally. CARDIOVASCULAR: Normal S1 and S2. Regular rate and rhythm. Tachycardic. No murmurs, gallops, or rubs. LUNGS: Clear to auscultation bilaterally. ABDOMEN: Soft, nontender, and nondistended. No hepatosplenomegaly. Positive bowel sounds. EXTREMITIES: No evidence of edema, clubbing, or cyanosis. JUDITH WATSON Sep 27, 2017 18:47
[2017-09-27 20:00] VITALS: BP 111/64
[2017-09-27] MEDS ORDERED: FAT EMULSION 20% IV SCH (20:00)
[2017-09-27] MEDS ORDERED: TPN IV SCH (20:00)
[2017-09-27] MEDS: Iron Sucrose 100 MG in NS 55 ML IV SCH (21:35)
[2017-09-27] MEDS: Dyna-Hex 2% Top Sol 2oz TOPIC SCH (21:35)
[2017-09-27] MEDS: Phytonadione 10 mg/mL 1ml amp SUBQ SCH (21:36)
--- NOTE | 2017-09-27 23:57 | General Progress Note ---
Assessment/Plan Status: stable Assessment/Plan Assessment and Recs: # Anemia of chronic disease --> w/u has been reviewed --> hgb goal is >7 --> Has been mild, does not need blood transfusion # Leukocytosis is likely reactive from Acute abdominal pain 2 to perforation with perforated cecum and rectosigmoid s/p exp laparotomy with partial R hemicolectomy --> Trend wbc count --> improving, continue to closely monitor. # Cervical Ca s/p surgery and radiation, has not received any chemotherapy recently # Thrombocytosis is likely related to chronic reactive process --> currently improved # Anemia of GI bleeding --> GI followup. # Severe protein calorie malnutrition Subjective Date patient seen: Sep 27, 2017 Constitutional: Denies: no symptoms, chills, diaphoresis, fever, malaise, weakness, other HEENT: Denies: no symptoms, eye pain, blurred vision, tearing, double vision, ear pain, ear discharge, nose pain, nose congestion, throat pain, throat swelling, mouth pain, mouth swelling, other Cardiovascular: Denies: no symptoms, chest pain, edema, irregular heart rate, lightheadedness, palpitations, syncope, other Respiratory: Denies: no symptoms, cough, orthopnea, shortness of breath, SOB with excertion, SOB at rest, sputum, stridor, wheezing, other Gastrointestinal/Abdominal: Denies: no symptoms, abdomen distended, abdominal pain, black stools, tarry stools, blood in stool, constipated, diarrhea, difficulty swallowing, nausea, poor appetite, poor fluid intake, rectal bleeding , vomiting, other Genitourinary: Denies: no symptoms, burning, discharge, frequency, flank pain, hematuria, incontinence, pain, urgency, other Allergies: Coded Allergies: No Known Allergies (Unverified , 09/10/17) Subjective Lethargic. H/H stable. No fever. Objective Last 24 Hour Vital Signs Date Time Temp Pulse Resp B/P (MAP) Pulse Ox O2 Delivery O2 Flow Rate FiO2 09/27/17 21:00 98 20 Room Air 09/27/17 20:00 98.1 101 23 111/64 95 09/27/17 12:00 97.7 94 18 112/75 97 09/27/17 08:00 97.7 109 18 114/79 96 09/27/17 07:45 56 18 Room Air 09/27/17 04:03 97.5 103 19 131/73 93 09/27/17 00:00 97.5 110 19 121/80 98 Intake and Output 09/26/17 09/27/17 19:00 07:00 Intake Total 864 ml 1375 ml Output Total 890 ml 70 ml Balance -26 ml 1305 ml Intake Oral 0 ml IV Total 864 ml 1375 ml Output Urine Total 800 ml Stool Total 0 ml Gastric Drainage Total 70 ml Drainage Total 20 ml 10 ml Other 60 ml # Voids 3 Laboratory Tests 09/27/17 06:40: White Blood Count 12.4H, Red Blood Count 4.50, Hemoglobin 12.9, Hematocrit 39.9 , Mean Corpuscular Volume 89, Mean Corpuscular Hemoglobin 28.7, Mean Corpuscular Hemoglobin Concent 32.4, Red Cell Distribution Width 15.6H, Platelet Count 495H, Mean Platelet Volume 4.7L, Neutrophils (%) (Auto) , Lymphocytes (%) (Auto) , Monocytes (%) (Auto) , Eosinophils (%) (Auto) , Basophils (%) (Auto) , Differential Total Cells Counted 100, Neutrophils % ( Manual) 93H, Lymphocytes % (Manual) 4L, Monocytes % (Manual) 3, Eosinophils % ( Manual) 0, Basophils % (Manual) 0, Band Neutrophils 0, Platelet Estimate Adequate, Platelet Morphology Normal, Hypochromasia 1+, Anisocytosis 1+, Sodium Level 135L, Potassium Level 3.9, Chloride Level 96L, Carbon Dioxide Level 33H, Anion Gap 6, Blood Urea Nitrogen 2L, Creatinine 0.4L, Estimat Glomerular Filtration Rate > 60, Glucose Level 116H, Calcium Level 8.9, Phosphorus Level 3.9, Magnesium Level 1.4L Height (Feet): 5 Height (Inches): 3.00 Weight (Pounds): 72 General Appearance: no apparent distress Neck: normal alignment, supple Respiratory/Chest: lungs clear Abdomen: non tender, soft Chris Spencer Sep 27, 2017 23:57
[2017-09-28] VITALS: BP 122/86
[2017-09-28] MEDS: Insulin NovoLOG Flexpen S/S (insulin sensitive) SUBQ SCH ×5 (00:08→23:51)
[2017-09-28 01:32] LABS: APPEARANCE,URINE CLEAR; BILIRUBIN, URINE NEGATIVE (NEGATIVE); GLUCOSE, URINE (UA) NEGATIVE (NEGATIVE); KETONES,URINE NEGATIVE (NEGATIVE); LEUKOCYTE ESTERASE ,URINE NEGATIVE (NEGATIVE); NITRITE,URINE NEGATIVE (NEGATIVE); PH,URINE 5 (4.5-8.0); PROTEIN,URINE NEGATIVE (NEGATIVE); UROBILINOGEN,URINE NORMAL MG/DL (0.0-1.0)
[2017-09-28 01:34] LABS: COLOR,URINE YELLOW
[2017-09-28 04:00] VITALS: BP 119/76
[2017-09-28] MEDS: Piperacillin/Tazobactam 3.375 GM in D5W 110 ML IVPB SCH ×3 (06:01→21:50)
[2017-09-28 06:03] LABS: HEMATOCRIT 36.3 % (37.0-47.0); HEMOGLOBIN 11.9 G/DL (12.0-16.0); MEAN CORPUSCULAR VOLUME 88 FL (80-99); PLATELET COUNT 465 K/UL (150-450); RED BLOOD COUNT 4.12 M/UL (4.20-5.40); RED CELL DISTRIBUTION WIDTH 15.7 % (11.6-14.8); WHITE BLOOD COUNT 12.8 K/UL (4.8-10.8)
[2017-09-28 06:32] LABS: ALANINE AMINOTRANSFERASE 18 U/L (12-78); ALBUMIN 1.5 G/DL (3.4-5.0); ALBUMIN/GLOBULIN RATIO 0.3 (1.0-2.7); ALKALINE PHOSPHATASE 90 U/L (46-116); ANION GAP 4 mmol/L (5-15); ASPARTATE AMINO TRANSFERASE 19 U/L (15-37); BILIRUBIN,TOTAL 1.8 MG/DL (0.2-1.0); BLOOD UREA NITROGEN 3 mg/dL (7-18); CALCIUM 8.4 MG/DL (8.5-10.1); CARBON DIOXIDE 35 MMOL/L (21-32); CHLORIDE 99 MMOL/L (98-107); CREATININE 0.5 MG/DL (0.55-1.30); PHOSPHORUS 4.4 MG/DL (2.5-4.9); POTASSIUM 3.5 MMOL/L (3.5-5.1); SODIUM 138 MMOL/L (136-145)
[2017-09-28 06:38] LABS: BILIRUBIN,DIRECT 1.1 MG/DL (0.0-0.3)
[2017-09-28 08:00] VITALS: BP 104/79
[2017-09-28] MEDS: Pantoprazole Inj IVP SCH (08:46)
[2017-09-28] MEDS: Heparin 5000 units/ml inj SUBQ SCH ×2 (08:50→20:24)
--- NOTE | 2017-09-28 09:09 | Nephrology Progress Note ---
Assessment/Plan Assessment 1. Acute renal failure 2. Hyponatremia. 3. Malnutrition. 4. hyperkalemia. 5. Dehydration. 6. History of cervical cancer. Plan plan to continue IVF monitoring renal function avoid NSAID replace electrolyte as need it mix all IV with NS Subjective Constitutional: Reports: no symptoms, malaise, weakness HEENT: Reports: no symptoms Genitourinary: Reports: no symptoms Neurologic/Psychiatric: Reports: depressed Subjective c/o back and abdominal pain denies nausea or vomiting Objective Objective Last 24 Hour Vital Signs Date Time Temp Pulse Resp B/P (MAP) Pulse Ox O2 Delivery O2 Flow Rate FiO2 09/28/17 08:00 98.0 86 18 104/79 97 09/28/17 07:30 84 20 Room Air 09/28/17 04:01 Room Air 09/28/17 04:00 97.0 84 19 119/76 100 Room Air 09/28/17 00:01 Room Air 09/28/17 00:00 98.2 86 20 122/86 100 09/27/17 21:00 98 20 Room Air 09/27/17 20:01 Room Air 09/27/17 20:00 98.1 101 23 111/64 95 09/27/17 12:00 97.7 94 18 112/75 97 Intake and Output 09/27/17 09/28/17 19:00 07:00 Intake Total 1017.498 ml 765.0 ml Output Total 160 ml 706 ml Balance 857.498 ml 59.0 ml IV Total 1017.498 ml 765.0 ml Output Urine Total 650 ml Stool Total 0 ml Gastric Drainage Total 150 ml 40 ml Drainage Total 10 ml 16 ml # Voids 6 3 Laboratory Tests 09/27/17 22:00: Urine Color Yellow, Urine Appearance Clear, Urine pH 5, Urine Specific [place] 1.010, Urine Protein Negative, Urine Glucose (UA) Negative, Urine Ketones Negative, Urine Occult Blood Negative, Urine Nitrite Negative, Urine Bilirubin Negative, Urine Urobilinogen Normal, Urine Leukocyte Esterase Negative, Urine RBC 0-2, Urine WBC 0, Urine Squamous Epithelial Cells Few, Urine Bacteria None, Urine Random Creatinine [Pending], Urine Random Microalbumin [Pending], Urine Random Total Protein 14H, Urine Random Sodium 79, Urine Creatinine 19.6L, Urine Microalbumin/Creatinine Ratio [Pending] 09/28/17 05:45: White Blood Count 12.8H, Red Blood Count 4.12L, Hemoglobin 11.9L, Hematocrit 36.3L, Mean Corpuscular Volume 88, Mean Corpuscular Hemoglobin 29.0, Mean Corpuscular Hemoglobin Concent 32.8, Red Cell Distribution Width 15.7H, Platelet Count 465H, Mean Platelet Volume 5.2L, Neutrophils (%) (Auto) , Lymphocytes (%) (Auto) , Monocytes (%) (Auto) , Eosinophils (%) (Auto) , Basophils (%) (Auto) , Differential Total Cells Counted 100, Neutrophils % ( Manual) 86H, Lymphocytes % (Manual) 10L, Monocytes % (Manual) 1, Eosinophils % ( Manual) 1, Basophils % (Manual) 0, Band Neutrophils 2, Platelet Estimate Adequate, Platelet Morphology Normal, Red Blood Cell Morphology Normal, Sodium Level 138, Potassium Level 3.5, Chloride Level 99, Carbon Dioxide Level 35H, Anion Gap 4L, Blood Urea Nitrogen 3L, Creatinine 0.5L, Estimat Glomerular Filtration Rate > 60, Glucose Level 107H, Calcium Level 8.4L, Phosphorus Level 4.4, Magnesium Level 1.8, Total Bilirubin 1.8H, Direct Bilirubin 1.1H, Aspartate Amino Transf (AST/SGOT) 19, Alanine Aminotransferase (ALT/SGPT) 18, Alkaline Phosphatase 90, Total Protein 5.8L, Albumin 1.5L, Globulin 4.3, Albumin /Globulin Ratio 0.3L Height (Feet): 5 Height (Inches): 3.00 Weight (Pounds): 72 Objective HEAD AND NECK: No JVP. No LAD. No thyromegaly. Extraocular movement intact. Pupils are reactive to light and accommodation. LUNGS: Decreased breathing sounds. CARDIAC: Regular rate and rhythm. S1 and S2. No murmur. No rub. ABDOMEN: Distended. Bowel sounds are positive. Diffuse tenderness. No guarding. No rebound. EXTREMITIES: A 1+ to 2+ edema. No clubbing. No cyanosis. NEUROLOGIC: Cranial nerves II through XII within normal limits. Upper and lower extremities are grossly intact. LORRAINE GROVER Sep 28, 2017 09:09
--- NOTE | 2017-09-28 10:46 | GI Progress Note ---
Assessment/Plan Problems: (1) Perforation of cecum ICD Codes: K63.1 - Perforation of intestine (nontraumatic) SNOMED: 258294586 (2) Perforated sigmoid colon ICD Codes: K63.1 - Perforation of intestine (nontraumatic) SNOMED: 908935386 (3) Intra-abdominal free air of unknown etiology ICD Codes: K66.8 - Other specified disorders of peritoneum SNOMED: 07153769 (4) Abdominal pain ICD Codes: R10.9 - Unspecified abdominal pain SNOMED: 26921232 Qualifiers: Qualified Codes: R10.13 - Epigastric pain (5) GI bleed ICD Codes: K92.2 - Gastrointestinal hemorrhage, unspecified SNOMED: 80329195 Qualifiers: Qualified Codes: K92.2 - Gastrointestinal hemorrhage, unspecified (6) Anemia ICD Codes: D64.9 - Anemia, unspecified SNOMED: 386137055 Qualifiers: Qualified Codes: D64.9 - Anemia, unspecified Status: unchanged Status Narrative Discussed with Dr. Jordan. Assessment/Plan post op care fu surgical recs TPN NGT to LIS per surgery PT evaluation pain control fu labs Subjective Subjective hungry generalized weakness Objective Last 24 Hour Vital Signs Date Time Temp Pulse Resp B/P (MAP) Pulse Ox O2 Delivery O2 Flow Rate FiO2 09/28/17 08:00 98.0 86 18 104/79 97 09/28/17 07:30 84 20 Room Air 09/28/17 04:01 Room Air 09/28/17 04:00 97.0 84 19 119/76 100 Room Air 09/28/17 00:01 Room Air 09/28/17 00:00 98.2 86 20 122/86 100 09/27/17 21:00 98 20 Room Air 09/27/17 20:01 Room Air 09/27/17 20:00 98.1 101 23 111/64 95 09/27/17 12:00 97.7 94 18 112/75 97 Intake and Output 09/27/17 09/28/17 19:00 07:00 Intake Total 1017.498 ml 765.0 ml Output Total 160 ml 706 ml Balance 857.498 ml 59.0 ml IV Total 1017.498 ml 765.0 ml Output Urine Total 650 ml Stool Total 0 ml Gastric Drainage Total 150 ml 40 ml Drainage Total 10 ml 16 ml # Voids 6 3 Laboratory Tests Test 09/27/17 22:00 09/28/17 05:45 Urine Color Yellow Urine Appearance Clear Urine pH 5 (4.5-8.0) Urine Specific [place] 1.010 (1.005-1.035) Urine Protein Negative (NEGATIVE) Urine Glucose (UA) Negative (NEGATIVE) Urine Ketones Negative (NEGATIVE) Urine Occult Blood Negative (NEGATIVE) Urine Nitrite Negative (NEGATIVE) Urine Bilirubin Negative (NEGATIVE) Urine Urobilinogen Normal MG/DL (0.0-1.0) Urine Leukocyte Esterase Negative (NEGATIVE) Urine RBC 0-2 /HPF (0 - 2) Urine WBC 0 /HPF (0 - 2) Urine Squamous Epithelial Cells Few /LPF (NONE/OCC) Urine Bacteria None /HPF (NONE) Urine Random Creatinine Pending Urine Random Microalbumin Pending Urine Random Total Protein 14 MG/DL (< 11.9) H Urine Random Sodium 79 MEQ/L (20-110) Urine Creatinine 19.6 MG/DL (30.0-125.0) L Urine Microalbumin/Creatinine Ratio Pending White Blood Count 12.8 K/UL (4.8-10.8) H Red Blood Count 4.12 M/UL (4.20-5.40) L Hemoglobin 11.9 G/DL (12.0-16.0) L Hematocrit 36.3 % (37.0-47.0) L Mean Corpuscular Volume 88 FL (80-99) Mean Corpuscular Hemoglobin 29.0 PG (27.0-31.0) Mean Corpuscular Hemoglobin Concent 32.8 G/DL (32.0-36.0) Red Cell Distribution Width 15.7 % (11.6-14.8) H Platelet Count 465 K/UL (150-450) H Mean Platelet Volume 5.2 FL (6.5-10.1) L Neutrophils (%) (Auto) % (45.0-75.0) Lymphocytes (%) (Auto) % (20.0-45.0) Monocytes (%) (Auto) % (1.0-10.0) Eosinophils (%) (Auto) % (0.0-3.0) Basophils (%) (Auto) % (0.0-2.0) Differential Total Cells Counted 100 Neutrophils % (Manual) 86 % (45-75) H Lymphocytes % (Manual) 10 % (20-45) L Monocytes % (Manual) 1 % (1-10) Eosinophils % (Manual) 1 % (0-3) Basophils % (Manual) 0 % (0-2) Band Neutrophils 2 % (0-8) Platelet Estimate Adequate Platelet Morphology Normal Red Blood Cell Morphology Normal Sodium Level 138 MMOL/L (136-145) Potassium Level 3.5 MMOL/L (3.5-5.1) Chloride Level 99 MMOL/L (98-107) Carbon Dioxide Level 35 MMOL/L (21-32) H Anion Gap 4 mmol/L (5-15) L Blood Urea Nitrogen 3 mg/dL (7-18) L Creatinine 0.5 MG/DL (0.55-1.30) L Estimat Glomerular Filtration Rate > 60 mL/min (>60) Glucose Level 107 MG/DL (74-106) H Calcium Level 8.4 MG/DL (8.5-10.1) L Phosphorus Level 4.4 MG/DL (2.5-4.9) Magnesium Level 1.8 MG/DL (1.8-2.4) Total Bilirubin 1.8 MG/DL (0.2-1.0) H Direct Bilirubin 1.1 MG/DL (0.0-0.3) H Aspartate Amino Transf (AST/SGOT) 19 U/L (15-37) Alanine Aminotransferase (ALT/SGPT) 18 U/L (12-78) Alkaline Phosphatase 90 U/L (46-116) Total Protein 5.8 G/DL (6.4-8.2) L Albumin 1.5 G/DL (3.4-5.0) L Globulin 4.3 g/dL Albumin/Globulin Ratio 0.3 (1.0-2.7) L Height (Feet): 5 Height (Inches): 3.00 Weight (Pounds): 72 General Appearance: WD/WN, no apparent distress, alert, thin Cardiovascular: normal rate Respiratory/Chest: normal breath sounds, no respiratory distress Abdominal Exam: normal bowel sounds, non tender, soft Extremities: normal range of motion, non-tender Cece Gerard N.P. Sep 28, 2017 10:46
--- NOTE | 2017-09-28 11:48 | General Progress Note ---
Assessment/Plan Problem List: (1) Anemia ICD Codes: D64.9 - Anemia, unspecified SNOMED: 483519461 Qualifiers: Qualified Codes: D64.9 - Anemia, unspecified (2) GI bleed ICD Codes: K92.2 - Gastrointestinal hemorrhage, unspecified SNOMED: 26939073 Qualifiers: Qualified Codes: K92.2 - Gastrointestinal hemorrhage, unspecified (3) Abdominal pain ICD Codes: R10.9 - Unspecified abdominal pain SNOMED: 34911938 Qualifiers: Qualified Codes: R10.13 - Epigastric pain Status: unchanged Assessment/Plan ot pt diet ng cbc bmp am gi f/u id eval Subjective Constitutional: Reports: weakness Allergies: Coded Allergies: No Known Allergies (Unverified , 09/10/17) All Systems: reviewed and negative except above Subjective ng sl nauseus Objective Last 24 Hour Vital Signs Date Time Temp Pulse Resp B/P (MAP) Pulse Ox O2 Delivery O2 Flow Rate FiO2 09/28/17 08:00 98.0 86 18 104/79 97 09/28/17 07:30 84 20 Room Air 09/28/17 04:01 Room Air 09/28/17 04:00 97.0 84 19 119/76 100 Room Air 09/28/17 00:01 Room Air 09/28/17 00:00 98.2 86 20 122/86 100 09/27/17 21:00 98 20 Room Air 09/27/17 20:01 Room Air 09/27/17 20:00 98.1 101 23 111/64 95 09/27/17 12:00 97.7 94 18 112/75 97 Intake and Output 09/27/17 09/28/17 19:00 07:00 Intake Total 1017.498 ml 765.0 ml Output Total 160 ml 706 ml Balance 857.498 ml 59.0 ml IV Total 1017.498 ml 765.0 ml Output Urine Total 650 ml Stool Total 0 ml Gastric Drainage Total 150 ml 40 ml Drainage Total 10 ml 16 ml # Voids 6 3 Laboratory Tests 09/27/17 22:00: Urine Color Yellow, Urine Appearance Clear, Urine pH 5, Urine Specific [place] 1.010, Urine Protein Negative, Urine Glucose (UA) Negative, Urine Ketones Negative, Urine Occult Blood Negative, Urine Nitrite Negative, Urine Bilirubin Negative, Urine Urobilinogen Normal, Urine Leukocyte Esterase Negative, Urine RBC 0-2, Urine WBC 0, Urine Squamous Epithelial Cells Few, Urine Bacteria None, Urine Random Creatinine [Pending], Urine Random Microalbumin [Pending], Urine Random Total Protein 14H, Urine Random Sodium 79, Urine Creatinine 19.6L, Urine Microalbumin/Creatinine Ratio [Pending] 09/28/17 05:45: White Blood Count 12.8H, Red Blood Count 4.12L, Hemoglobin 11.9L, Hematocrit 36.3L, Mean Corpuscular Volume 88, Mean Corpuscular Hemoglobin 29.0, Mean Corpuscular Hemoglobin Concent 32.8, Red Cell Distribution Width 15.7H, Platelet Count 465H, Mean Platelet Volume 5.2L, Neutrophils (%) (Auto) , Lymphocytes (%) (Auto) , Monocytes (%) (Auto) , Eosinophils (%) (Auto) , Basophils (%) (Auto) , Differential Total Cells Counted 100, Neutrophils % ( Manual) 86H, Lymphocytes % (Manual) 10L, Monocytes % (Manual) 1, Eosinophils % ( Manual) 1, Basophils % (Manual) 0, Band Neutrophils 2, Platelet Estimate Adequate, Platelet Morphology Normal, Red Blood Cell Morphology Normal, Sodium Level 138, Potassium Level 3.5, Chloride Level 99, Carbon Dioxide Level 35H, Anion Gap 4L, Blood Urea Nitrogen 3L, Creatinine 0.5L, Estimat Glomerular Filtration Rate > 60, Glucose Level 107H, Calcium Level 8.4L, Phosphorus Level 4.4, Magnesium Level 1.8, Total Bilirubin 1.8H, Direct Bilirubin 1.1H, Aspartate Amino Transf (AST/SGOT) 19, Alanine Aminotransferase (ALT/SGPT) 18, Alkaline Phosphatase 90, Total Protein 5.8L, Albumin 1.5L, Globulin 4.3, Albumin /Globulin Ratio 0.3L Height (Feet): 5 Height (Inches): 3.00 Weight (Pounds): 72 General Appearance: lethargic EENT: normal ENT inspection Neck: normal alignment Cardiovascular: normal peripheral pulses, normal rate, regular rhythm Respiratory/Chest: chest wall non-tender, lungs clear, normal breath sounds Abdomen: normal bowel sounds, non tender, soft Extremities: normal inspection Edema: no edema noted Arm (L), no edema noted Arm (R), no edema noted Leg (L), no edema noted Leg (R), no edema noted Pedal (L), no edema noted Pedal (R), no edema noted Generalized Neurologic: motor weakness Skin: normal pigmentation, warm/dry SONIDO FELICIANO Sep 28, 2017 11:48
[2017-09-28 12:00] VITALS: BP 108/77
--- NOTE | 2017-09-28 12:15 | Infectious Diseases Prog Note ---
Assessment/Plan Assessment/Plan A; Perforated bowel Peritonitis with E. coli, Enterococcus, C. albicans Cervical cancer P: Continue Zosyn & Fluconazole Subjective ROS Limited/Unobtainable: No Constitutional: Reports: no symptoms Respiratory: Reports: no symptoms Gastrointestinal/Abdominal: Reports: other - pain Genitourinary: Reports: no symptoms Allergies: Coded Allergies: No Known Allergies (Unverified , 09/10/17) Objective Vital Signs Last 24 Hour Vital Signs Date Time Temp Pulse Resp B/P (MAP) Pulse Ox O2 Delivery O2 Flow Rate FiO2 09/28/17 08:00 98.0 86 18 104/79 97 09/28/17 07:30 84 20 Room Air 09/28/17 04:01 Room Air 09/28/17 04:00 97.0 84 19 119/76 100 Room Air 09/28/17 00:01 Room Air 09/28/17 00:00 98.2 86 20 122/86 100 09/27/17 21:00 98 20 Room Air 09/27/17 20:01 Room Air 09/27/17 20:00 98.1 101 23 111/64 95 Height (Feet): 5 Height (Inches): 3.00 Weight (Pounds): 72 General Appearance: no acute distress, cachetic HEENT: mucous membranes moist Respiratory/Chest: lungs clear Cardiovascular: normal rate, other - RIJ central line Abdomen: soft, non tender, other - s/p osteotomy Extremities: no edema Neurologic/Psychiatric: alert, oriented x 3, responsive Laboratory Tests Test 09/27/17 22:00 09/28/17 05:45 Urine Color Yellow Urine Appearance Clear Urine pH 5 (4.5-8.0) Urine Specific [place] 1.010 (1.005-1.035) Urine Protein Negative (NEGATIVE) Urine Glucose (UA) Negative (NEGATIVE) Urine Ketones Negative (NEGATIVE) Urine Occult Blood Negative (NEGATIVE) Urine Nitrite Negative (NEGATIVE) Urine Bilirubin Negative (NEGATIVE) Urine Urobilinogen Normal MG/DL (0.0-1.0) Urine Leukocyte Esterase Negative (NEGATIVE) Urine RBC 0-2 /HPF (0 - 2) Urine WBC 0 /HPF (0 - 2) Urine Squamous Epithelial Cells Few /LPF (NONE/OCC) Urine Bacteria None /HPF (NONE) Urine Random Creatinine Pending Urine Random Microalbumin Pending Urine Random Total Protein 14 MG/DL (< 11.9) H Urine Random Sodium 79 MEQ/L (20-110) Urine Creatinine 19.6 MG/DL (30.0-125.0) L Urine Microalbumin/Creatinine Ratio Pending White Blood Count 12.8 K/UL (4.8-10.8) H Red Blood Count 4.12 M/UL (4.20-5.40) L Hemoglobin 11.9 G/DL (12.0-16.0) L Hematocrit 36.3 % (37.0-47.0) L Mean Corpuscular Volume 88 FL (80-99) Mean Corpuscular Hemoglobin 29.0 PG (27.0-31.0) Mean Corpuscular Hemoglobin Concent 32.8 G/DL (32.0-36.0) Red Cell Distribution Width 15.7 % (11.6-14.8) H Platelet Count 465 K/UL (150-450) H Mean Platelet Volume 5.2 FL (6.5-10.1) L Neutrophils (%) (Auto) % (45.0-75.0) Lymphocytes (%) (Auto) % (20.0-45.0) Monocytes (%) (Auto) % (1.0-10.0) Eosinophils (%) (Auto) % (0.0-3.0) Basophils (%) (Auto) % (0.0-2.0) Differential Total Cells Counted 100 Neutrophils % (Manual) 86 % (45-75) H Lymphocytes % (Manual) 10 % (20-45) L Monocytes % (Manual) 1 % (1-10) Eosinophils % (Manual) 1 % (0-3) Basophils % (Manual) 0 % (0-2) Band Neutrophils 2 % (0-8) Platelet Estimate Adequate Platelet Morphology Normal Red Blood Cell Morphology Normal Sodium Level 138 MMOL/L (136-145) Potassium Level 3.5 MMOL/L (3.5-5.1) Chloride Level 99 MMOL/L (98-107) Carbon Dioxide Level 35 MMOL/L (21-32) H Anion Gap 4 mmol/L (5-15) L Blood Urea Nitrogen 3 mg/dL (7-18) L Creatinine 0.5 MG/DL (0.55-1.30) L Estimat Glomerular Filtration Rate > 60 mL/min (>60) Glucose Level 107 MG/DL (74-106) H Calcium Level 8.4 MG/DL (8.5-10.1) L Phosphorus Level 4.4 MG/DL (2.5-4.9) Magnesium Level 1.8 MG/DL (1.8-2.4) Total Bilirubin 1.8 MG/DL (0.2-1.0) H Direct Bilirubin 1.1 MG/DL (0.0-0.3) H Aspartate Amino Transf (AST/SGOT) 19 U/L (15-37) Alanine Aminotransferase (ALT/SGPT) 18 U/L (12-78) Alkaline Phosphatase 90 U/L (46-116) Total Protein 5.8 G/DL (6.4-8.2) L Albumin 1.5 G/DL (3.4-5.0) L Globulin 4.3 g/dL Albumin/Globulin Ratio 0.3 (1.0-2.7) L Current Medications Medications (Trade) Dose Ordered Sig/Francoise Route PRN Reason Start Time Stop Time Status Last Admin Dose Admin Acetaminophen (Tylenol) 650 mg Q4H PRN RECTAL FEVER 09/25/17 16:30 10/22/17 16:29 Albuterol/ Ipratropium (Albuterol/ Ipratropium) 3 ml Q4H PRN HHN SHORTNESS OF BREATH 09/25/17 16:30 09/28/17 16:29 Chlorhexidine Gluconate (Kenia-Hex 2%) 1 applic DAILY@2000 TOPIC 09/25/17 20:00 10/24/17 19:59 09/27/17 21:35 Dextrose (Dextrose 50%) No Dose PRN IV hypoglycemia 09/28/17 00:00 10/28/17 00:00 Fat Emulsion Intravenous 168 ml/Amino Acids/ Electrolytes/ Dextrose 1,320 ml @ 55 mls/hr Q24H IV 09/27/17 20:00 09/28/17 19:59 09/27/17 21:46 Fat Emulsion Intravenous 168 ml/Amino Acids/ Electrolytes/ Dextrose 1,320 ml @ 55 mls/hr Q24H IV 09/28/17 20:00 10/28/17 19:59 Fluconazole/ Sodium Chloride 100 ml @ 100 mls/hr Q24H IV 09/27/17 18:00 10/04/17 17:59 09/27/17 21:36 Heparin Sodium (Porcine) (Heparin 5000 units/ml) 5,000 units EVERY 12 HOURS SUBQ 09/25/17 21:00 10/23/17 08:59 09/28/17 08:50 Hydromorphone HCl (Dilaudid) 1 mg Q3H PRN IVP pain score 4-6 09/25/17 16:45 09/29/17 19:43 Hydromorphone HCl (Dilaudid) 3 mg Q2H PRN IVP pain score 7-10 09/25/17 16:30 09/30/17 16:29 09/28/17 10:49 Insulin Aspart (NovoLOG) No Dose Q6HR SUBQ 09/28/17 00:00 10/28/17 00:00 09/28/17 06:15 Lorazepam (Ativan) 1 mg Q6H PRN ORAL For Anxiety 09/25/17 16:30 09/29/17 16:29 Ondansetron HCl (Zofran) 4 mg Q6H PRN IVP Nausea & Vomiting 09/25/17 16:30 10/22/17 16:29 Pantoprazole (Protonix) 40 mg DAILY IVP 09/26/17 09:00 10/23/17 08:59 09/28/17 08:46 Phytonadione (Vitamin K) 10 mg QWEEK SUBQ 09/27/17 20:00 10/27/17 19:59 09/27/17 21:36 Piperacillin Sod/ Tazobactam Sod 3.375 gm/Dextrose 110 ml @ 27.5 mls/hr EVERY 8 HOURS IVPB 09/27/17 15:00 10/02/17 14:59 09/28/17 06:01 CHERYLE WOLFE Sep 28, 2017 12:15
--- NOTE | 2017-09-28 14:38 | Pulmonology Progress Note ---
Assessment/Plan Problems: (1) Intra-abdominal free air of unknown etiology (2) Perforated sigmoid colon (3) Sepsis Assessment/Plan no new complains all reviewed iv abx iv fluid check cultures pain management continue NG suction chagne IV fluid check electroltyes. still npo pt wants to eat, awaiting surgeons approval Subjective ROS Limited/Unobtainable: No Allergies: Coded Allergies: No Known Allergies (Unverified , 09/10/17) Objective Last 24 Hour Vital Signs Date Time Temp Pulse Resp B/P (MAP) Pulse Ox O2 Delivery O2 Flow Rate FiO2 09/28/17 12:00 98.1 81 18 108/77 97 09/28/17 08:00 98.0 86 18 104/79 97 09/28/17 07:30 84 20 Room Air 09/28/17 04:01 Room Air 09/28/17 04:00 97.0 84 19 119/76 100 Room Air 09/28/17 00:01 Room Air 09/28/17 00:00 98.2 86 20 122/86 100 09/27/17 21:00 98 20 Room Air 09/27/17 20:01 Room Air 09/27/17 20:00 98.1 101 23 111/64 95 Intake and Output 09/27/17 09/28/17 19:00 07:00 Intake Total 1017.498 ml 765.0 ml Output Total 160 ml 706 ml Balance 857.498 ml 59.0 ml IV Total 1017.498 ml 765.0 ml Output Urine Total 650 ml Stool Total 0 ml Gastric Drainage Total 150 ml 40 ml Drainage Total 10 ml 16 ml # Voids 6 3 Objective General Appearance: WD/WN, no apparent distress, ON tpn, NGtube in place HEENT: normocephalic, atraumatic Neck: non-tender, normal alignment Respiratory/Chest: chest wall non-tender, lungs clear Breasts: no masses Cardiovascular/Chest: normal rate Abdomen: normal bowel sounds, no organomegaly Genitourinary/Rectal: normal genital exam Extremities: normal range of motion General Appearance: WD/WN Laboratory Tests 09/27/17 22:00: Urine Color Yellow, Urine Appearance Clear, Urine pH 5, Urine Specific [place] 1.010, Urine Protein Negative, Urine Glucose (UA) Negative, Urine Ketones Negative, Urine Occult Blood Negative, Urine Nitrite Negative, Urine Bilirubin Negative, Urine Urobilinogen Normal, Urine Leukocyte Esterase Negative, Urine RBC 0-2, Urine WBC 0, Urine Squamous Epithelial Cells Few, Urine Bacteria None, Urine Random Creatinine [Pending], Urine Random Microalbumin [Pending], Urine Random Total Protein 14H, Urine Random Sodium 79, Urine Creatinine 19.6L, Urine Microalbumin/Creatinine Ratio [Pending] 09/28/17 05:45: White Blood Count 12.8H, Red Blood Count 4.12L, Hemoglobin 11.9L, Hematocrit 36.3L, Mean Corpuscular Volume 88, Mean Corpuscular Hemoglobin 29.0, Mean Corpuscular Hemoglobin Concent 32.8, Red Cell Distribution Width 15.7H, Platelet Count 465H, Mean Platelet Volume 5.2L, Neutrophils (%) (Auto) , Lymphocytes (%) (Auto) , Monocytes (%) (Auto) , Eosinophils (%) (Auto) , Basophils (%) (Auto) , Differential Total Cells Counted 100, Neutrophils % ( Manual) 86H, Lymphocytes % (Manual) 10L, Monocytes % (Manual) 1, Eosinophils % ( Manual) 1, Basophils % (Manual) 0, Band Neutrophils 2, Platelet Estimate Adequate, Platelet Morphology Normal, Red Blood Cell Morphology Normal, Sodium Level 138, Potassium Level 3.5, Chloride Level 99, Carbon Dioxide Level 35H, Anion Gap 4L, Blood Urea Nitrogen 3L, Creatinine 0.5L, Estimat Glomerular Filtration Rate > 60, Glucose Level 107H, Calcium Level 8.4L, Phosphorus Level 4.4, Magnesium Level 1.8, Total Bilirubin 1.8H, Direct Bilirubin 1.1H, Aspartate Amino Transf (AST/SGOT) 19, Alanine Aminotransferase (ALT/SGPT) 18, Alkaline Phosphatase 90, Total Protein 5.8L, Albumin 1.5L, Globulin 4.3, Albumin /Globulin Ratio 0.3L Current Medications Medications (Trade) Dose Ordered Sig/Francoise Route PRN Reason Start Time Stop Time Status Last Admin Dose Admin Acetaminophen (Tylenol) 650 mg Q4H PRN RECTAL FEVER 09/25/17 16:30 10/22/17 16:29 Albuterol/ Ipratropium (Albuterol/ Ipratropium) 3 ml Q4H PRN HHN SHORTNESS OF BREATH 09/25/17 16:30 09/28/17 16:29 Chlorhexidine Gluconate (Kenia-Hex 2%) 1 applic DAILY@2000 TOPIC 09/25/17 20:00 10/24/17 19:59 09/27/17 21:35 Dextrose (Dextrose 50%) No Dose PRN IV hypoglycemia 09/28/17 00:00 10/28/17 00:00 Fat Emulsion Intravenous 168 ml/Amino Acids/ Electrolytes/ Dextrose 1,320 ml @ 55 mls/hr Q24H IV 09/27/17 20:00 09/28/17 19:59 09/27/17 21:46 Fat Emulsion Intravenous 168 ml/Amino Acids/ Electrolytes/ Dextrose 1,320 ml @ 55 mls/hr Q24H IV 09/28/17 20:00 10/28/17 19:59 Fluconazole/ Sodium Chloride 100 ml @ 100 mls/hr Q24H IV 09/27/17 18:00 10/04/17 17:59 09/27/17 21:36 Heparin Sodium (Porcine) (Heparin 5000 units/ml) 5,000 units EVERY 12 HOURS SUBQ 09/25/17 21:00 10/23/17 08:59 09/28/17 08:50 Hydromorphone HCl (Dilaudid) 1 mg Q3H PRN IVP pain score 4-6 09/25/17 16:45 09/29/17 19:43 Hydromorphone HCl (Dilaudid) 3 mg Q2H PRN IVP pain score 7-10 09/25/17 16:30 09/30/17 16:29 09/28/17 12:57 Insulin Aspart (NovoLOG) No Dose Q6HR SUBQ 09/28/17 00:00 10/28/17 00:00 09/28/17 12:59 Lorazepam (Ativan) 1 mg Q6H PRN ORAL For Anxiety 09/25/17 16:30 09/29/17 16:29 Ondansetron HCl (Zofran) 4 mg Q6H PRN IVP Nausea & Vomiting 09/25/17 16:30 10/22/17 16:29 Pantoprazole (Protonix) 40 mg DAILY IVP 09/26/17 09:00 10/23/17 08:59 09/28/17 08:46 Phytonadione (Vitamin K) 10 mg QWEEK SUBQ 09/27/17 20:00 10/27/17 19:59 09/27/17 21:36 Piperacillin Sod/ Tazobactam Sod 3.375 gm/Dextrose 110 ml @ 27.5 mls/hr EVERY 8 HOURS IVPB 09/27/17 15:00 10/02/17 14:59 09/28/17 13:56 JL CHAVEZ Sep 28, 2017 14:38
[2017-09-28 16:00] VITALS: BP 107/67
--- NOTE | 2017-09-28 16:42 | General Surgery Progress Note ---
General Surgery-Progress Note Subjective Symptoms: improved Objective Last 24 Hour Vital Signs Date Time Temp Pulse Resp B/P (MAP) Pulse Ox O2 Delivery O2 Flow Rate FiO2 09/28/17 12:00 98.1 81 18 108/77 97 09/28/17 08:00 98.0 86 18 104/79 97 09/28/17 07:30 84 20 Room Air 09/28/17 04:01 Room Air 09/28/17 04:00 97.0 84 19 119/76 100 Room Air 09/28/17 00:01 Room Air 09/28/17 00:00 98.2 86 20 122/86 100 09/27/17 21:00 98 20 Room Air 09/27/17 20:01 Room Air 09/27/17 20:00 98.1 101 23 111/64 95 I&O Intake and Output 09/27/17 09/28/17 19:00 07:00 Intake Total 1017.498 ml 765.0 ml Output Total 160 ml 706 ml Balance 857.498 ml 59.0 ml IV Total 1017.498 ml 765.0 ml Output Urine Total 650 ml Stool Total 0 ml Gastric Drainage Total 150 ml 40 ml Drainage Total 10 ml 16 ml # Voids 6 3 Wound: other - packing Drains: james Respiratory: clear Abdomen: soft, flat, non-tender, absent bowel sounds Extremities: no tenderness Laboratory Tests Test 09/27/17 22:00 09/28/17 05:45 Urine Color Yellow Urine Appearance Clear Urine pH 5 (4.5-8.0) Urine Specific [place] 1.010 (1.005-1.035) Urine Protein Negative (NEGATIVE) Urine Glucose (UA) Negative (NEGATIVE) Urine Ketones Negative (NEGATIVE) Urine Occult Blood Negative (NEGATIVE) Urine Nitrite Negative (NEGATIVE) Urine Bilirubin Negative (NEGATIVE) Urine Urobilinogen Normal MG/DL (0.0-1.0) Urine Leukocyte Esterase Negative (NEGATIVE) Urine RBC 0-2 /HPF (0 - 2) Urine WBC 0 /HPF (0 - 2) Urine Squamous Epithelial Cells Few /LPF (NONE/OCC) Urine Bacteria None /HPF (NONE) Urine Random Creatinine Pending Urine Random Microalbumin Pending Urine Random Total Protein 14 MG/DL (< 11.9) H Urine Random Sodium 79 MEQ/L (20-110) Urine Creatinine 19.6 MG/DL (30.0-125.0) L Urine Microalbumin/Creatinine Ratio Pending White Blood Count 12.8 K/UL (4.8-10.8) H Red Blood Count 4.12 M/UL (4.20-5.40) L Hemoglobin 11.9 G/DL (12.0-16.0) L Hematocrit 36.3 % (37.0-47.0) L Mean Corpuscular Volume 88 FL (80-99) Mean Corpuscular Hemoglobin 29.0 PG (27.0-31.0) Mean Corpuscular Hemoglobin Concent 32.8 G/DL (32.0-36.0) Red Cell Distribution Width 15.7 % (11.6-14.8) H Platelet Count 465 K/UL (150-450) H Mean Platelet Volume 5.2 FL (6.5-10.1) L Neutrophils (%) (Auto) % (45.0-75.0) Lymphocytes (%) (Auto) % (20.0-45.0) Monocytes (%) (Auto) % (1.0-10.0) Eosinophils (%) (Auto) % (0.0-3.0) Basophils (%) (Auto) % (0.0-2.0) Differential Total Cells Counted 100 Neutrophils % (Manual) 86 % (45-75) H Lymphocytes % (Manual) 10 % (20-45) L Monocytes % (Manual) 1 % (1-10) Eosinophils % (Manual) 1 % (0-3) Basophils % (Manual) 0 % (0-2) Band Neutrophils 2 % (0-8) Platelet Estimate Adequate Platelet Morphology Normal Red Blood Cell Morphology Normal Sodium Level 138 MMOL/L (136-145) Potassium Level 3.5 MMOL/L (3.5-5.1) Chloride Level 99 MMOL/L (98-107) Carbon Dioxide Level 35 MMOL/L (21-32) H Anion Gap 4 mmol/L (5-15) L Blood Urea Nitrogen 3 mg/dL (7-18) L Creatinine 0.5 MG/DL (0.55-1.30) L Estimat Glomerular Filtration Rate > 60 mL/min (>60) Glucose Level 107 MG/DL (74-106) H Calcium Level 8.4 MG/DL (8.5-10.1) L Phosphorus Level 4.4 MG/DL (2.5-4.9) Magnesium Level 1.8 MG/DL (1.8-2.4) Total Bilirubin 1.8 MG/DL (0.2-1.0) H Direct Bilirubin 1.1 MG/DL (0.0-0.3) H Aspartate Amino Transf (AST/SGOT) 19 U/L (15-37) Alanine Aminotransferase (ALT/SGPT) 18 U/L (12-78) Alkaline Phosphatase 90 U/L (46-116) Total Protein 5.8 G/DL (6.4-8.2) L Albumin 1.5 G/DL (3.4-5.0) L Globulin 4.3 g/dL Albumin/Globulin Ratio 0.3 (1.0-2.7) L Assessment Post-op Diagnosis perforation of cecum and recto-sigmoid Plan Additional Comments continue as before DWAYNE OLIVER Sep 28, 2017 16:42
--- NOTE | 2017-09-28 18:00 | Cardiology Progress Note ---
Assessment/Plan Assessment/Plan 1. Sinus tachycardia, resolved, most likely due to volume depletion, continue hydration. 2. Hypotension, due to intravascular volume depletion, continue hydration. 3. History of cervical cancer, status post chemotherapy. 4. s/p rectosigmoid resection, POD #6 with peritonitis. Subjective Subjective Denies chest pain or SOB. Objective Last 24 Hour Vital Signs Date Time Temp Pulse Resp B/P (MAP) Pulse Ox O2 Delivery O2 Flow Rate FiO2 09/28/17 16:00 97.7 70 18 107/67 97 09/28/17 12:00 98.1 81 18 108/77 97 09/28/17 08:00 98.0 86 18 104/79 97 09/28/17 07:30 84 20 Room Air 09/28/17 04:01 Room Air 09/28/17 04:00 97.0 84 19 119/76 100 Room Air 09/28/17 00:01 Room Air 09/28/17 00:00 98.2 86 20 122/86 100 09/27/17 21:00 98 20 Room Air 09/27/17 20:01 Room Air 09/27/17 20:00 98.1 101 23 111/64 95 Intake and Output 09/27/17 09/28/17 19:00 07:00 Intake Total 1017.498 ml 765.0 ml Output Total 160 ml 706 ml Balance 857.498 ml 59.0 ml IV Total 1017.498 ml 765.0 ml Output Urine Total 650 ml Stool Total 0 ml Gastric Drainage Total 150 ml 40 ml Drainage Total 10 ml 16 ml # Voids 6 3 Laboratory Tests Test 09/27/17 22:00 09/28/17 05:45 Urine Color Yellow Urine Appearance Clear Urine pH 5 (4.5-8.0) Urine Specific [place] 1.010 (1.005-1.035) Urine Protein Negative (NEGATIVE) Urine Glucose (UA) Negative (NEGATIVE) Urine Ketones Negative (NEGATIVE) Urine Occult Blood Negative (NEGATIVE) Urine Nitrite Negative (NEGATIVE) Urine Bilirubin Negative (NEGATIVE) Urine Urobilinogen Normal MG/DL (0.0-1.0) Urine Leukocyte Esterase Negative (NEGATIVE) Urine RBC 0-2 /HPF (0 - 2) Urine WBC 0 /HPF (0 - 2) Urine Squamous Epithelial Cells Few /LPF (NONE/OCC) Urine Bacteria None /HPF (NONE) Urine Random Creatinine Pending Urine Random Microalbumin Pending Urine Random Total Protein 14 MG/DL (< 11.9) H Urine Random Sodium 79 MEQ/L (20-110) Urine Creatinine 19.6 MG/DL (30.0-125.0) L Urine Microalbumin/Creatinine Ratio Pending White Blood Count 12.8 K/UL (4.8-10.8) H Red Blood Count 4.12 M/UL (4.20-5.40) L Hemoglobin 11.9 G/DL (12.0-16.0) L Hematocrit 36.3 % (37.0-47.0) L Mean Corpuscular Volume 88 FL (80-99) Mean Corpuscular Hemoglobin 29.0 PG (27.0-31.0) Mean Corpuscular Hemoglobin Concent 32.8 G/DL (32.0-36.0) Red Cell Distribution Width 15.7 % (11.6-14.8) H Platelet Count 465 K/UL (150-450) H Mean Platelet Volume 5.2 FL (6.5-10.1) L Neutrophils (%) (Auto) % (45.0-75.0) Lymphocytes (%) (Auto) % (20.0-45.0) Monocytes (%) (Auto) % (1.0-10.0) Eosinophils (%) (Auto) % (0.0-3.0) Basophils (%) (Auto) % (0.0-2.0) Differential Total Cells Counted 100 Neutrophils % (Manual) 86 % (45-75) H Lymphocytes % (Manual) 10 % (20-45) L Monocytes % (Manual) 1 % (1-10) Eosinophils % (Manual) 1 % (0-3) Basophils % (Manual) 0 % (0-2) Band Neutrophils 2 % (0-8) Platelet Estimate Adequate Platelet Morphology Normal Red Blood Cell Morphology Normal Sodium Level 138 MMOL/L (136-145) Potassium Level 3.5 MMOL/L (3.5-5.1) Chloride Level 99 MMOL/L (98-107) Carbon Dioxide Level 35 MMOL/L (21-32) H Anion Gap 4 mmol/L (5-15) L Blood Urea Nitrogen 3 mg/dL (7-18) L Creatinine 0.5 MG/DL (0.55-1.30) L Estimat Glomerular Filtration Rate > 60 mL/min (>60) Glucose Level 107 MG/DL (74-106) H Calcium Level 8.4 MG/DL (8.5-10.1) L Phosphorus Level 4.4 MG/DL (2.5-4.9) Magnesium Level 1.8 MG/DL (1.8-2.4) Total Bilirubin 1.8 MG/DL (0.2-1.0) H Direct Bilirubin 1.1 MG/DL (0.0-0.3) H Aspartate Amino Transf (AST/SGOT) 19 U/L (15-37) Alanine Aminotransferase (ALT/SGPT) 18 U/L (12-78) Alkaline Phosphatase 90 U/L (46-116) Total Protein 5.8 G/DL (6.4-8.2) L Albumin 1.5 G/DL (3.4-5.0) L Globulin 4.3 g/dL Albumin/Globulin Ratio 0.3 (1.0-2.7) L Objective HEENT: Atraumatic and normocephalic. Anicteric. Pupils are equal, round, and reactive to light and accommodation. There is conjunctival pallor. NECK: JVP less than 5 cm. No carotid bruit. Carotid upstrokes 2+ bilaterally. CARDIOVASCULAR: Normal S1 and S2. Regular rate and rhythm. Tachycardic. No murmurs, gallops, or rubs. LUNGS: Clear to auscultation bilaterally. ABDOMEN: Soft, nontender, and nondistended. No hepatosplenomegaly. Positive bowel sounds. EXTREMITIES: No evidence of edema, clubbing, or cyanosis. JUDITH WATSON Sep 28, 2017 18:00
[2017-09-28 20:00] VITALS: BP 122/80
[2017-09-28] MEDS: Dyna-Hex 2% Top Sol 2oz TOPIC SCH (20:22)
[2017-09-28] MEDS: FAT EMULSION 20% IV SCH (20:23)
[2017-09-28] MEDS: TPN IV SCH (20:23)
--- NOTE | 2017-09-28 22:10 | General Progress Note ---
Assessment/Plan Status: stable Assessment/Plan Assessment and Recs: # Anemia of chronic disease --> w/u has been reviewed --> hgb goal is >7 --> Has been mild, does not need blood transfusion # Leukocytosis is likely reactive from Acute abdominal pain 2 to perforation with perforated cecum and rectosigmoid s/p exp laparotomy with partial R hemicolectomy --> improving, continue to closely monitor. # Cervical Ca s/p surgery and radiation, has not received any chemotherapy recently # Thrombocytosis is likely related to chronic reactive process --> currently improved # Anemia of GI bleeding --> GI followup. # Severe protein calorie malnutrition Subjective Date patient seen: Sep 28, 2017 Constitutional: Denies: no symptoms, chills, diaphoresis, fever, malaise, weakness, other HEENT: Denies: no symptoms, eye pain, blurred vision, tearing, double vision, ear pain, ear discharge, nose pain, nose congestion, throat pain, throat swelling, mouth pain, mouth swelling, other Cardiovascular: Denies: no symptoms, chest pain, edema, irregular heart rate, lightheadedness, palpitations, syncope, other Respiratory: Denies: no symptoms, cough, orthopnea, shortness of breath, SOB with excertion, SOB at rest, sputum, stridor, wheezing, other Gastrointestinal/Abdominal: Denies: no symptoms, abdomen distended, abdominal pain, black stools, tarry stools, blood in stool, constipated, diarrhea, difficulty swallowing, nausea, poor appetite, poor fluid intake, rectal bleeding , vomiting, other Genitourinary: Denies: no symptoms, burning, discharge, frequency, flank pain, hematuria, incontinence, pain, urgency, other Allergies: Coded Allergies: No Known Allergies (Unverified , 09/10/17) Subjective Remains lethargic. No major events. On pain control. Objective Last 24 Hour Vital Signs Date Time Temp Pulse Resp B/P (MAP) Pulse Ox O2 Delivery O2 Flow Rate FiO2 09/28/17 20:00 97.8 95 18 122/80 98 Room Air 09/28/17 16:00 97.7 70 18 107/67 97 09/28/17 12:00 98.1 81 18 108/77 97 09/28/17 08:00 98.0 86 18 104/79 97 1/25/18 07:30 84 20 Room Air 09/28/17 04:01 Room Air 09/28/17 04:00 97.0 84 19 119/76 100 Room Air 09/28/17 00:01 Room Air 09/28/17 00:00 98.2 86 20 122/86 100 Intake and Output 09/27/17 09/28/17 19:00 07:00 Intake Total 1017.498 ml 765.0 ml Output Total 160 ml 706 ml Balance 857.498 ml 59.0 ml IV Total 1017.498 ml 765.0 ml Output Urine Total 650 ml Stool Total 0 ml Gastric Drainage Total 150 ml 40 ml Drainage Total 10 ml 16 ml # Voids 6 3 Laboratory Tests 09/28/17 05:45: White Blood Count 12.8H, Red Blood Count 4.12L, Hemoglobin 11.9L, Hematocrit 36.3L, Mean Corpuscular Volume 88, Mean Corpuscular Hemoglobin 29.0, Mean Corpuscular Hemoglobin Concent 32.8, Red Cell Distribution Width 15.7H, Platelet Count 465H, Mean Platelet Volume 5.2L, Neutrophils (%) (Auto) , Lymphocytes (%) (Auto) , Monocytes (%) (Auto) , Eosinophils (%) (Auto) , Basophils (%) (Auto) , Differential Total Cells Counted 100, Neutrophils % ( Manual) 86H, Lymphocytes % (Manual) 10L, Monocytes % (Manual) 1, Eosinophils % ( Manual) 1, Basophils % (Manual) 0, Band Neutrophils 2, Platelet Estimate Adequate, Platelet Morphology Normal, Red Blood Cell Morphology Normal, Sodium Level 138, Potassium Level 3.5, Chloride Level 99, Carbon Dioxide Level 35H, Anion Gap 4L, Blood Urea Nitrogen 3L, Creatinine 0.5L, Estimat Glomerular Filtration Rate > 60, Glucose Level 107H, Calcium Level 8.4L, Phosphorus Level 4.4, Magnesium Level 1.8, Total Bilirubin 1.8H, Direct Bilirubin 1.1H, Aspartate Amino Transf (AST/SGOT) 19, Alanine Aminotransferase (ALT/SGPT) 18, Alkaline Phosphatase 90, Total Protein 5.8L, Albumin 1.5L, Globulin 4.3, Albumin /Globulin Ratio 0.3L Height (Feet): 5 Height (Inches): 3.00 Weight (Pounds): 72 General Appearance: lethargic Respiratory/Chest: decreased breath sounds Chris Spencer Sep 28, 2017 22:10
[2017-09-29] VITALS: BP 111/72
[2017-09-29 04:00] VITALS: BP 109/71
[2017-09-29] MEDS: Insulin NovoLOG Flexpen S/S (insulin sensitive) SUBQ SCH ×3 (06:00→17:22)
[2017-09-29] MEDS: Piperacillin/Tazobactam 3.375 GM in D5W 110 ML IVPB SCH ×2 (06:00→13:16)
[2017-09-29 06:26] LABS: HEMOGLOBIN 13.1 G/DL (12.0-16.0); MEAN CORPUSCULAR VOLUME 88 FL (80-99); PLATELET COUNT 467 K/UL (150-450); RED BLOOD COUNT 4.66 M/UL (4.20-5.40); RED CELL DISTRIBUTION WIDTH 15.4 % (11.6-14.8); WHITE BLOOD COUNT 15.5 K/UL (4.8-10.8)
[2017-09-29 07:11] LABS: ANION GAP 5 mmol/L (5-15); BLOOD UREA NITROGEN 5 mg/dL (7-18); CALCIUM 8.6 MG/DL (8.5-10.1); CARBON DIOXIDE 33 MMOL/L (21-32); CHLORIDE 97 MMOL/L (98-107); CREATININE 0.5 MG/DL (0.55-1.30); POTASSIUM 3.6 MMOL/L (3.5-5.1); SODIUM 135 MMOL/L (136-145)
[2017-09-29 07:26] LABS: PHOSPHORUS 3.3 MG/DL (2.5-4.9)
[2017-09-29 08:00] VITALS: BP 122/76
[2017-09-29] MEDS: Heparin 5000 units/ml inj SUBQ SCH ×2 (08:09→20:29)
[2017-09-29] MEDS: Pantoprazole Inj IVP SCH (08:13)
[2017-09-29] MEDS ORDERED: Hydromorphone 0.5mg/0.5ml inj IVP PRN (10:45)
--- NOTE | 2017-09-29 11:47 | GI Progress Note ---
Assessment/Plan Problems: (1) Perforation of cecum ICD Codes: K63.1 - Perforation of intestine (nontraumatic) SNOMED: 571529307 (2) Perforated sigmoid colon ICD Codes: K63.1 - Perforation of intestine (nontraumatic) SNOMED: 466902731 (3) Intra-abdominal free air of unknown etiology ICD Codes: K66.8 - Other specified disorders of peritoneum SNOMED: 43150011 (4) Abdominal pain ICD Codes: R10.9 - Unspecified abdominal pain SNOMED: 00098937 Qualifiers: Qualified Codes: R10.13 - Epigastric pain (5) GI bleed ICD Codes: K92.2 - Gastrointestinal hemorrhage, unspecified SNOMED: 12242944 Qualifiers: Qualified Codes: K92.2 - Gastrointestinal hemorrhage, unspecified (6) Anemia ICD Codes: D64.9 - Anemia, unspecified SNOMED: 599586741 Qualifiers: Qualified Codes: D64.9 - Anemia, unspecified Status: unchanged Status Narrative Discussed with Dr. Jordan. Assessment/Plan post op care fu surgical recs TPN NGT to LIS per surgery PT evaluation pain control fu labs Subjective Subjective hungry generalized weakness Objective Last 24 Hour Vital Signs Date Time Temp Pulse Resp B/P (MAP) Pulse Ox O2 Delivery O2 Flow Rate FiO2 09/29/17 10:32 98.1 09/29/17 08:30 98.1 09/29/17 08:00 98.6 94 20 122/76 98 09/29/17 04:00 98.1 89 18 109/71 97 Room Air 09/29/17 00:00 98.1 90 18 111/72 98 Room Air 09/28/17 20:00 97.8 95 18 122/80 98 Room Air 09/28/17 16:00 97.7 70 18 107/67 97 09/28/17 12:00 98.1 81 18 108/77 97 Intake and Output 09/28/17 09/29/17 19:00 07:00 Intake Total 880.0 ml 550 ml Output Total 30 ml Balance 880.0 ml 520 ml IV Total 880.0 ml 550 ml Stool Total 5 ml Drainage Total 25 ml # Voids 6 5 Laboratory Tests Test 09/29/17 04:50 White Blood Count 15.5 K/UL (4.8-10.8) H Red Blood Count 4.66 M/UL (4.20-5.40) Hemoglobin 13.1 G/DL (12.0-16.0) Hematocrit 41.0 % (37.0-47.0) Mean Corpuscular Volume 88 FL (80-99) Mean Corpuscular Hemoglobin 28.1 PG (27.0-31.0) Mean Corpuscular Hemoglobin Concent 31.9 G/DL (32.0-36.0) L Red Cell Distribution Width 15.4 % (11.6-14.8) H Platelet Count 467 K/UL (150-450) H Mean Platelet Volume 5.2 FL (6.5-10.1) L Neutrophils (%) (Auto) % (45.0-75.0) Lymphocytes (%) (Auto) % (20.0-45.0) Monocytes (%) (Auto) % (1.0-10.0) Eosinophils (%) (Auto) % (0.0-3.0) Basophils (%) (Auto) % (0.0-2.0) Differential Total Cells Counted 100 Neutrophils % (Manual) 93 % (45-75) H Lymphocytes % (Manual) 7 % (20-45) L Monocytes % (Manual) 0 % (1-10) L Eosinophils % (Manual) 0 % (0-3) Basophils % (Manual) 0 % (0-2) Band Neutrophils 0 % (0-8) Platelet Estimate Adequate Platelet Morphology Normal Hypochromasia 1+ Anisocytosis 1+ Sodium Level 135 MMOL/L (136-145) L Potassium Level 3.6 MMOL/L (3.5-5.1) Chloride Level 97 MMOL/L (98-107) L Carbon Dioxide Level 33 MMOL/L (21-32) H Anion Gap 5 mmol/L (5-15) Blood Urea Nitrogen 5 mg/dL (7-18) L Creatinine 0.5 MG/DL (0.55-1.30) L Estimat Glomerular Filtration Rate > 60 mL/min (>60) Glucose Level 100 MG/DL (74-106) Calcium Level 8.6 MG/DL (8.5-10.1) Phosphorus Level 3.3 MG/DL (2.5-4.9) Magnesium Level 1.9 MG/DL (1.8-2.4) Height (Feet): 5 Height (Inches): 3.00 Weight (Pounds): 72 General Appearance: WD/WN, no apparent distress, alert, thin Cardiovascular: normal rate Respiratory/Chest: normal breath sounds, no respiratory distress Abdominal Exam: normal bowel sounds, non tender, soft Extremities: normal range of motion, non-tender Cece Gerard N.P. Sep 29, 2017 11:47
--- NOTE | 2017-09-29 11:52 | Infectious Diseases Prog Note ---
Assessment/Plan Assessment/Plan A; Perforated bowel Peritonitis with E. coli, Enterococcus, C. albicans & Prevotella Cervical cancer P: Continue Zosyn & Fluconazole Subjective ROS Limited/Unobtainable: No Constitutional: Reports: other - doing better Gastrointestinal/Abdominal: Reports: other - NG tube is removed Musculoskeletal: Reports: pain Allergies: Coded Allergies: No Known Allergies (Unverified , 09/10/17) Objective Vital Signs Last 24 Hour Vital Signs Date Time Temp Pulse Resp B/P (MAP) Pulse Ox O2 Delivery O2 Flow Rate FiO2 09/29/17 10:32 98.1 09/29/17 08:30 98.1 09/29/17 08:00 98.6 94 20 122/76 98 09/29/17 04:00 98.1 89 18 109/71 97 Room Air 09/29/17 00:00 98.1 90 18 111/72 98 Room Air 09/28/17 20:00 97.8 95 18 122/80 98 Room Air 09/28/17 16:00 97.7 70 18 107/67 97 09/28/17 12:00 98.1 81 18 108/77 97 Height (Feet): 5 Height (Inches): 3.00 Weight (Pounds): 72 General Appearance: cachetic HEENT: mucous membranes moist Respiratory/Chest: lungs clear Cardiovascular: normal rate, other - RIJ line Abdomen: soft, non tender, other - s/p osteotpmy Extremities: no edema Neurologic/Psychiatric: alert, oriented x 3, responsive Laboratory Tests Test 09/29/17 04:50 White Blood Count 15.5 K/UL (4.8-10.8) H Red Blood Count 4.66 M/UL (4.20-5.40) Hemoglobin 13.1 G/DL (12.0-16.0) Hematocrit 41.0 % (37.0-47.0) Mean Corpuscular Volume 88 FL (80-99) Mean Corpuscular Hemoglobin 28.1 PG (27.0-31.0) Mean Corpuscular Hemoglobin Concent 31.9 G/DL (32.0-36.0) L Red Cell Distribution Width 15.4 % (11.6-14.8) H Platelet Count 467 K/UL (150-450) H Mean Platelet Volume 5.2 FL (6.5-10.1) L Neutrophils (%) (Auto) % (45.0-75.0) Lymphocytes (%) (Auto) % (20.0-45.0) Monocytes (%) (Auto) % (1.0-10.0) Eosinophils (%) (Auto) % (0.0-3.0) Basophils (%) (Auto) % (0.0-2.0) Differential Total Cells Counted 100 Neutrophils % (Manual) 93 % (45-75) H Lymphocytes % (Manual) 7 % (20-45) L Monocytes % (Manual) 0 % (1-10) L Eosinophils % (Manual) 0 % (0-3) Basophils % (Manual) 0 % (0-2) Band Neutrophils 0 % (0-8) Platelet Estimate Adequate Platelet Morphology Normal Hypochromasia 1+ Anisocytosis 1+ Sodium Level 135 MMOL/L (136-145) L Potassium Level 3.6 MMOL/L (3.5-5.1) Chloride Level 97 MMOL/L (98-107) L Carbon Dioxide Level 33 MMOL/L (21-32) H Anion Gap 5 mmol/L (5-15) Blood Urea Nitrogen 5 mg/dL (7-18) L Creatinine 0.5 MG/DL (0.55-1.30) L Estimat Glomerular Filtration Rate > 60 mL/min (>60) Glucose Level 100 MG/DL (74-106) Calcium Level 8.6 MG/DL (8.5-10.1) Phosphorus Level 3.3 MG/DL (2.5-4.9) Magnesium Level 1.9 MG/DL (1.8-2.4) Current Medications Medications (Trade) Dose Ordered Sig/Francoise Route PRN Reason Start Time Stop Time Status Last Admin Dose Admin Acetaminophen (Tylenol) 650 mg Q4H PRN RECTAL FEVER 09/25/17 16:30 10/22/17 16:29 Chlorhexidine Gluconate (Kenia-Hex 2%) 1 applic DAILY@2000 TOPIC 09/25/17 20:00 10/24/17 19:59 09/28/17 20:22 Dextrose (Dextrose 50%) No Dose PRN IV hypoglycemia 09/28/17 00:00 10/28/17 00:00 Fat Emulsion Intravenous 168 ml/Amino Acids/ Electrolytes/ Dextrose 1,320 ml @ 55 mls/hr Q24H IV 09/28/17 20:00 10/28/17 19:59 09/28/17 20:23 Fluconazole/ Sodium Chloride 100 ml @ 100 mls/hr Q24H IV 09/27/17 18:00 10/04/17 17:59 09/28/17 18:04 Heparin Sodium (Porcine) (Heparin 5000 units/ml) 5,000 units EVERY 12 HOURS SUBQ 09/25/17 21:00 10/23/17 08:59 09/29/17 08:09 Hydromorphone HCl (Dilaudid) 1 mg Q3H PRN IVP pain score 4-6 09/29/17 10:45 10/03/17 23:59 Hydromorphone HCl (Dilaudid) 3 mg Q2H PRN IVP pain score 7-10 09/29/17 10:30 10/04/17 23:59 09/29/17 10:02 Insulin Aspart (NovoLOG) No Dose Q6HR SUBQ 09/28/17 00:00 10/28/17 00:00 09/28/17 18:05 Lorazepam (Ativan) 1 mg Q6H PRN ORAL For Anxiety 09/25/17 16:30 09/29/17 16:29 Ondansetron HCl (Zofran) 4 mg Q6H PRN IVP Nausea & Vomiting 09/25/17 16:30 10/22/17 16:29 Pantoprazole (Protonix) 40 mg DAILY IVP 09/26/17 09:00 10/23/17 08:59 09/29/17 08:13 Phytonadione (Vitamin K) 10 mg QWEEK SUBQ 09/27/17 20:00 10/27/17 19:59 09/27/17 21:36 Piperacillin Sod/ Tazobactam Sod 3.375 gm/Dextrose 110 ml @ 27.5 mls/hr EVERY 8 HOURS IVPB 09/27/17 15:00 10/02/17 14:59 09/29/17 06:00 CHERYLE WOLFE Sep 29, 2017 11:52
[2017-09-29 12:00] VITALS: BP 115/73
--- NOTE | 2017-09-29 12:12 | Nephrology Progress Note ---
Assessment/Plan Assessment 1. Acute renal failure 2. Hyponatremia. 3. Malnutrition. 4. hyperkalemia. 5. Dehydration. 6. History of cervical cancer. Plan plan to continue IVF monitoring renal function avoid NSAID replace electrolyte as need it mix all IV with NS Subjective Constitutional: Reports: no symptoms HEENT: Reports: no symptoms Genitourinary: Reports: no symptoms Neurologic/Psychiatric: Reports: no symptoms Subjective alert and awake no complaints Objective Objective Last 24 Hour Vital Signs Date Time Temp Pulse Resp B/P (MAP) Pulse Ox O2 Delivery O2 Flow Rate FiO2 09/29/17 10:32 98.1 09/29/17 08:30 98.1 09/29/17 08:00 98.6 94 20 122/76 98 09/29/17 04:00 98.1 89 18 109/71 97 Room Air 09/29/17 00:00 98.1 90 18 111/72 98 Room Air 09/28/17 20:00 97.8 95 18 122/80 98 Room Air 09/28/17 16:00 97.7 70 18 107/67 97 Intake and Output 09/28/17 09/29/17 19:00 07:00 Intake Total 880.0 ml 550 ml Output Total 30 ml Balance 880.0 ml 520 ml IV Total 880.0 ml 550 ml Stool Total 5 ml Drainage Total 25 ml # Voids 6 5 Laboratory Tests 09/29/17 04:50: White Blood Count 15.5H, Red Blood Count 4.66, Hemoglobin 13.1, Hematocrit 41.0 , Mean Corpuscular Volume 88, Mean Corpuscular Hemoglobin 28.1, Mean Corpuscular Hemoglobin Concent 31.9L, Red Cell Distribution Width 15.4H, Platelet Count 467H, Mean Platelet Volume 5.2L, Neutrophils (%) (Auto) , Lymphocytes (%) (Auto) , Monocytes (%) (Auto) , Eosinophils (%) (Auto) , Basophils (%) (Auto) , Differential Total Cells Counted 100, Neutrophils % ( Manual) 93H, Lymphocytes % (Manual) 7L, Monocytes % (Manual) 0L, Eosinophils % ( Manual) 0, Basophils % (Manual) 0, Band Neutrophils 0, Platelet Estimate Adequate, Platelet Morphology Normal, Hypochromasia 1+, Anisocytosis 1+, Sodium Level 135L, Potassium Level 3.6, Chloride Level 97L, Carbon Dioxide Level 33H, Anion Gap 5, Blood Urea Nitrogen 5L, Creatinine 0.5L, Estimat Glomerular Filtration Rate > 60, Glucose Level 100, Calcium Level 8.6, Phosphorus Level 3.3 , Magnesium Level 1.9 Height (Feet): 5 Height (Inches): 3.00 Weight (Pounds): 72 Objective HEAD AND NECK: No JVP. No LAD. No thyromegaly. Extraocular movement intact. Pupils are reactive to light and accommodation. LUNGS: Decreased breathing sounds. CARDIAC: Regular rate and rhythm. S1 and S2. No murmur. No rub. ABDOMEN: Distended. Bowel sounds are positive. Diffuse tenderness. No guarding. No rebound. EXTREMITIES: A 1+ to 2+ edema. No clubbing. No cyanosis. NEUROLOGIC: Cranial nerves II through XII within normal limits. Upper and lower extremities are grossly intact. LORRAINE GROVER Sep 29, 2017 12:12
--- NOTE | 2017-09-29 14:24 | General Surgery Progress Note ---
General Surgery-Progress Note Objective Last 24 Hour Vital Signs Date Time Temp Pulse Resp B/P (MAP) Pulse Ox O2 Delivery O2 Flow Rate FiO2 09/29/17 12:32 98.1 09/29/17 12:00 98.1 86 20 115/73 97 09/29/17 08:30 98.1 09/29/17 08:00 98.6 94 20 122/76 98 09/29/17 04:00 98.1 89 18 109/71 97 Room Air 09/29/17 00:00 98.1 90 18 111/72 98 Room Air 09/28/17 20:00 97.8 95 18 122/80 98 Room Air 09/28/17 16:00 97.7 70 18 107/67 97 I&O Intake and Output 09/28/17 09/29/17 19:00 07:00 Intake Total 880.0 ml 604.5 ml Output Total 30 ml Balance 880.0 ml 574.5 ml IV Total 880.0 ml 604.5 ml Stool Total 5 ml Drainage Total 25 ml # Voids 6 5 Wound: other - packing Drains: james Respiratory: clear Abdomen: soft, flat, non-tender, present bowel sounds Laboratory Tests Test 09/29/17 04:50 White Blood Count 15.5 K/UL (4.8-10.8) H Red Blood Count 4.66 M/UL (4.20-5.40) Hemoglobin 13.1 G/DL (12.0-16.0) Hematocrit 41.0 % (37.0-47.0) Mean Corpuscular Volume 88 FL (80-99) Mean Corpuscular Hemoglobin 28.1 PG (27.0-31.0) Mean Corpuscular Hemoglobin Concent 31.9 G/DL (32.0-36.0) L Red Cell Distribution Width 15.4 % (11.6-14.8) H Platelet Count 467 K/UL (150-450) H Mean Platelet Volume 5.2 FL (6.5-10.1) L Neutrophils (%) (Auto) % (45.0-75.0) Lymphocytes (%) (Auto) % (20.0-45.0) Monocytes (%) (Auto) % (1.0-10.0) Eosinophils (%) (Auto) % (0.0-3.0) Basophils (%) (Auto) % (0.0-2.0) Differential Total Cells Counted 100 Neutrophils % (Manual) 93 % (45-75) H Lymphocytes % (Manual) 7 % (20-45) L Monocytes % (Manual) 0 % (1-10) L Eosinophils % (Manual) 0 % (0-3) Basophils % (Manual) 0 % (0-2) Band Neutrophils 0 % (0-8) Platelet Estimate Adequate Platelet Morphology Normal Hypochromasia 1+ Anisocytosis 1+ Sodium Level 135 MMOL/L (136-145) L Potassium Level 3.6 MMOL/L (3.5-5.1) Chloride Level 97 MMOL/L (98-107) L Carbon Dioxide Level 33 MMOL/L (21-32) H Anion Gap 5 mmol/L (5-15) Blood Urea Nitrogen 5 mg/dL (7-18) L Creatinine 0.5 MG/DL (0.55-1.30) L Estimat Glomerular Filtration Rate > 60 mL/min (>60) Glucose Level 100 MG/DL (74-106) Calcium Level 8.6 MG/DL (8.5-10.1) Phosphorus Level 3.3 MG/DL (2.5-4.9) Magnesium Level 1.9 MG/DL (1.8-2.4) Assessment Post-op Diagnosis perforation of cecum and recto-sigmoid Plan Additional Comments clear liquid diet DWAYNE OLIVER Sep 29, 2017 14:24
--- NOTE | 2017-09-29 14:41 | General Progress Note ---
Assessment/Plan Status: unchanged Assessment/Plan Assessment and Recs: # Anemia of chronic disease --> w/u has been reviewed --> Blood transfusion not required unless symptomatic or hgb <7 # Leukocytosis is likely reactive from Acute abdominal pain 2 to perforation with perforated cecum and rectosigmoid s/p exp laparotomy with partial R hemicolectomy --> improving, continue to closely monitor. # Cervical Ca s/p surgery and radiation, has not received any chemotherapy recently # Thrombocytosis is likely related to chronic reactive process --> currently improved # Anemia of GI bleeding --> GI followup. # Severe protein calorie malnutrition Subjective Date patient seen: Sep 29, 2017 Constitutional: Denies: no symptoms, chills, diaphoresis, fever, malaise, weakness, other HEENT: Denies: no symptoms, eye pain, blurred vision, tearing, double vision, ear pain, ear discharge, nose pain, nose congestion, throat pain, throat swelling, mouth pain, mouth swelling, other Cardiovascular: Denies: no symptoms, chest pain, edema, irregular heart rate, lightheadedness, palpitations, syncope, other Respiratory: Denies: no symptoms, cough, orthopnea, shortness of breath, SOB with excertion, SOB at rest, sputum, stridor, wheezing, other Gastrointestinal/Abdominal: Denies: no symptoms, abdomen distended, abdominal pain, black stools, tarry stools, blood in stool, constipated, diarrhea, difficulty swallowing, nausea, poor appetite, poor fluid intake, rectal bleeding , vomiting, other Genitourinary: Denies: no symptoms, burning, discharge, frequency, flank pain, hematuria, incontinence, pain, urgency, other Hematologic/Lymphatic: Reports: anemia Allergies: Coded Allergies: No Known Allergies (Unverified , 09/10/17) Subjective Remains lethargic. Generalized weakness. Objective Last 24 Hour Vital Signs Date Time Temp Pulse Resp B/P (MAP) Pulse Ox O2 Delivery O2 Flow Rate FiO2 09/29/17 12:32 98.1 09/29/17 12:00 98.1 86 20 115/73 97 09/29/17 08:30 98.1 09/29/17 08:00 98.6 94 20 122/76 98 09/29/17 04:00 98.1 89 18 109/71 97 Room Air 1/26/18 00:00 98.1 90 18 111/72 98 Room Air 09/28/17 20:00 97.8 95 18 122/80 98 Room Air 09/28/17 16:00 97.7 70 18 107/67 97 Intake and Output 09/28/17 09/29/17 19:00 07:00 Intake Total 880.0 ml 604.5 ml Output Total 30 ml Balance 880.0 ml 574.5 ml IV Total 880.0 ml 604.5 ml Stool Total 5 ml Drainage Total 25 ml # Voids 6 5 Laboratory Tests 09/29/17 04:50: White Blood Count 15.5H, Red Blood Count 4.66, Hemoglobin 13.1, Hematocrit 41.0 , Mean Corpuscular Volume 88, Mean Corpuscular Hemoglobin 28.1, Mean Corpuscular Hemoglobin Concent 31.9L, Red Cell Distribution Width 15.4H, Platelet Count 467H, Mean Platelet Volume 5.2L, Neutrophils (%) (Auto) , Lymphocytes (%) (Auto) , Monocytes (%) (Auto) , Eosinophils (%) (Auto) , Basophils (%) (Auto) , Differential Total Cells Counted 100, Neutrophils % ( Manual) 93H, Lymphocytes % (Manual) 7L, Monocytes % (Manual) 0L, Eosinophils % ( Manual) 0, Basophils % (Manual) 0, Band Neutrophils 0, Platelet Estimate Adequate, Platelet Morphology Normal, Hypochromasia 1+, Anisocytosis 1+, Sodium Level 135L, Potassium Level 3.6, Chloride Level 97L, Carbon Dioxide Level 33H, Anion Gap 5, Blood Urea Nitrogen 5L, Creatinine 0.5L, Estimat Glomerular Filtration Rate > 60, Glucose Level 100, Calcium Level 8.6, Phosphorus Level 3.3 , Magnesium Level 1.9 Height (Feet): 5 Height (Inches): 3.00 Weight (Pounds): 72 General Appearance: lethargic Respiratory/Chest: decreased breath sounds Chris Spencer Sep 29, 2017 14:41
--- NOTE | 2017-09-29 14:54 | Pulmonology Progress Note ---
Assessment/Plan Problems: (1) Intra-abdominal free air of unknown etiology (2) Perforated sigmoid colon (3) Sepsis Assessment/Plan no new complains all reviewed iv abx iv fluid check cultures pain management continue NG suction chagne IV fluid check electroltyes. advance feeding as tolerated Subjective ROS Limited/Unobtainable: No Interval Events: moved her bowel. Allergies: Coded Allergies: No Known Allergies (Unverified , 09/10/17) Objective Last 24 Hour Vital Signs Date Time Temp Pulse Resp B/P (MAP) Pulse Ox O2 Delivery O2 Flow Rate FiO2 09/29/17 12:32 98.1 09/29/17 12:00 98.1 86 20 115/73 97 09/29/17 08:30 98.1 09/29/17 08:00 98.6 94 20 122/76 98 09/29/17 04:00 98.1 89 18 109/71 97 Room Air 09/29/17 00:00 98.1 90 18 111/72 98 Room Air 09/28/17 20:00 97.8 95 18 122/80 98 Room Air 09/28/17 16:00 97.7 70 18 107/67 97 Intake and Output 09/28/17 09/29/17 19:00 07:00 Intake Total 880.0 ml 604.5 ml Output Total 30 ml Balance 880.0 ml 574.5 ml IV Total 880.0 ml 604.5 ml Stool Total 5 ml Drainage Total 25 ml # Voids 6 5 Objective General Appearance: WD/WN, no apparent distress, ON tpn, NGtube in place HEENT: normocephalic, atraumatic Neck: non-tender, normal alignment Respiratory/Chest: chest wall non-tender, lungs clear Breasts: no masses Cardiovascular/Chest: normal rate Abdomen: normal bowel sounds, no organomegaly Genitourinary/Rectal: normal genital exam Extremities: normal range of motion Laboratory Tests 09/29/17 04:50: White Blood Count 15.5H, Red Blood Count 4.66, Hemoglobin 13.1, Hematocrit 41.0 , Mean Corpuscular Volume 88, Mean Corpuscular Hemoglobin 28.1, Mean Corpuscular Hemoglobin Concent 31.9L, Red Cell Distribution Width 15.4H, Platelet Count 467H, Mean Platelet Volume 5.2L, Neutrophils (%) (Auto) , Lymphocytes (%) (Auto) , Monocytes (%) (Auto) , Eosinophils (%) (Auto) , Basophils (%) (Auto) , Differential Total Cells Counted 100, Neutrophils % ( Manual) 93H, Lymphocytes % (Manual) 7L, Monocytes % (Manual) 0L, Eosinophils % ( Manual) 0, Basophils % (Manual) 0, Band Neutrophils 0, Platelet Estimate Adequate, Platelet Morphology Normal, Hypochromasia 1+, Anisocytosis 1+, Sodium Level 135L, Potassium Level 3.6, Chloride Level 97L, Carbon Dioxide Level 33H, Anion Gap 5, Blood Urea Nitrogen 5L, Creatinine 0.5L, Estimat Glomerular Filtration Rate > 60, Glucose Level 100, Calcium Level 8.6, Phosphorus Level 3.3 , Magnesium Level 1.9 Current Medications Medications (Trade) Dose Ordered Sig/Francoise Route PRN Reason Start Time Stop Time Status Last Admin Dose Admin Acetaminophen (Tylenol) 650 mg Q4H PRN RECTAL FEVER 09/25/17 16:30 10/22/17 16:29 Chlorhexidine Gluconate (Kenia-Hex 2%) 1 applic DAILY@2000 TOPIC 09/25/17 20:00 10/24/17 19:59 09/28/17 20:22 Dextrose (Dextrose 50%) No Dose PRN IV hypoglycemia 09/28/17 00:00 10/28/17 00:00 Fat Emulsion Intravenous 168 ml/Amino Acids/ Electrolytes/ Dextrose 1,320 ml @ 55 mls/hr Q24H IV 09/28/17 20:00 10/28/17 19:59 09/28/17 20:23 Fluconazole/ Sodium Chloride 100 ml @ 100 mls/hr Q24H IV 09/27/17 18:00 10/04/17 17:59 09/28/17 18:04 Heparin Sodium (Porcine) (Heparin 5000 units/ml) 5,000 units EVERY 12 HOURS SUBQ 09/25/17 21:00 10/23/17 08:59 09/29/17 08:09 Hydromorphone HCl (Dilaudid) 1 mg Q3H PRN IVP pain score 4-6 09/29/17 10:45 10/03/17 23:59 Hydromorphone HCl (Dilaudid) 3 mg Q2H PRN IVP pain score 7-10 09/29/17 10:30 10/04/17 23:59 09/29/17 14:03 Insulin Aspart (NovoLOG) No Dose Q6HR SUBQ 09/28/17 00:00 10/28/17 00:00 09/28/17 18:05 Levofloxacin 150 ml @ 100 mls/hr Q24H IVPB 09/29/17 20:00 10/06/17 19:59 Lorazepam (Ativan) 1 mg Q6H PRN ORAL For Anxiety 09/25/17 16:30 09/29/17 16:29 Ondansetron HCl (Zofran) 4 mg Q6H PRN IVP Nausea & Vomiting 09/25/17 16:30 10/22/17 16:29 Pantoprazole (Protonix) 40 mg DAILY IVP 09/26/17 09:00 10/23/17 08:59 09/29/17 08:13 Phytonadione (Vitamin K) 10 mg QWEEK SUBQ 09/27/17 20:00 10/27/17 19:59 09/27/17 21:36 Senna/Docusate Sodium (Jinny-Colace) 1 tab TWICE A DAY ORAL 09/29/17 18:00 10/29/17 17:59 JL CHAVEZ Sep 29, 2017 14:54
[2017-09-29 16:00] VITALS: BP 114/74
--- NOTE | 2017-09-29 16:32 | General Progress Note ---
Assessment/Plan Problem List: (1) Anemia ICD Codes: D64.9 - Anemia, unspecified SNOMED: 270435152 Qualifiers: Qualified Codes: D64.9 - Anemia, unspecified (2) GI bleed ICD Codes: K92.2 - Gastrointestinal hemorrhage, unspecified SNOMED: 11390740 Qualifiers: Qualified Codes: K92.2 - Gastrointestinal hemorrhage, unspecified (3) Abdominal pain ICD Codes: R10.9 - Unspecified abdominal pain SNOMED: 09440641 Qualifiers: Qualified Codes: R10.13 - Epigastric pain Status: stable, progressing Assessment/Plan ot pt diet cbc bmp am gi f/u id eval Subjective Constitutional: Reports: weakness Allergies: Coded Allergies: No Known Allergies (Unverified , 09/10/17) All Systems: reviewed and negative except above Subjective sharif clear liquid Objective Last 24 Hour Vital Signs Date Time Temp Pulse Resp B/P (MAP) Pulse Ox O2 Delivery O2 Flow Rate FiO2 09/29/17 14:25 98.1 09/29/17 12:00 98.1 86 20 115/73 97 09/29/17 08:30 98.1 09/29/17 08:00 98.6 94 20 122/76 98 09/29/17 04:00 98.1 89 18 109/71 97 Room Air 09/29/17 00:00 98.1 90 18 111/72 98 Room Air 09/28/17 20:00 97.8 95 18 122/80 98 Room Air Intake and Output 09/28/17 09/29/17 19:00 07:00 Intake Total 880.0 ml 604.5 ml Output Total 30 ml Balance 880.0 ml 574.5 ml IV Total 880.0 ml 604.5 ml Stool Total 5 ml Drainage Total 25 ml # Voids 6 5 Laboratory Tests 09/29/17 04:50: White Blood Count 15.5H, Red Blood Count 4.66, Hemoglobin 13.1, Hematocrit 41.0 , Mean Corpuscular Volume 88, Mean Corpuscular Hemoglobin 28.1, Mean Corpuscular Hemoglobin Concent 31.9L, Red Cell Distribution Width 15.4H, Platelet Count 467H, Mean Platelet Volume 5.2L, Neutrophils (%) (Auto) , Lymphocytes (%) (Auto) , Monocytes (%) (Auto) , Eosinophils (%) (Auto) , Basophils (%) (Auto) , Differential Total Cells Counted 100, Neutrophils % ( Manual) 93H, Lymphocytes % (Manual) 7L, Monocytes % (Manual) 0L, Eosinophils % ( Manual) 0, Basophils % (Manual) 0, Band Neutrophils 0, Platelet Estimate Adequate, Platelet Morphology Normal, Hypochromasia 1+, Anisocytosis 1+, Sodium Level 135L, Potassium Level 3.6, Chloride Level 97L, Carbon Dioxide Level 33H, Anion Gap 5, Blood Urea Nitrogen 5L, Creatinine 0.5L, Estimat Glomerular Filtration Rate > 60, Glucose Level 100, Calcium Level 8.6, Phosphorus Level 3.3 , Magnesium Level 1.9 Height (Feet): 5 Height (Inches): 3.00 Weight (Pounds): 72 General Appearance: lethargic EENT: normal ENT inspection Neck: normal alignment Cardiovascular: normal peripheral pulses, normal rate, regular rhythm Respiratory/Chest: chest wall non-tender, lungs clear, normal breath sounds Abdomen: normal bowel sounds, non tender, soft Pelvis: normal external exam, normal rectal exam, speculum exam normal Extremities: normal inspection Edema: no edema noted Arm (L), no edema noted Arm (R), no edema noted Leg (L), no edema noted Leg (R), no edema noted Pedal (L), no edema noted Pedal (R), no edema noted Generalized Neurologic: responsive, motor weakness Skin: normal pigmentation, warm/dry SONIDO FELICIANO Sep 29, 2017 16:32
[2017-09-29] MEDS: Docusate Sod/Senna tab ORAL SCH (17:22)
[2017-09-29 20:00] VITALS: BP 118/83
[2017-09-29] MEDS: Dyna-Hex 2% Top Sol 2oz TOPIC SCH (20:27)
[2017-09-29] MEDS: FAT EMULSION 20% IV SCH (20:30)
[2017-09-29] MEDS: TPN IV SCH (20:30)
--- NOTE | 2017-09-29 21:48 | Cardiology Progress Note ---
Assessment/Plan Assessment/Plan 1. Sinus tachycardia, resolved, most likely due to volume depletion, continue hydration. 2. Hypotension, due to intravascular volume depletion, continue hydration. 3. History of cervical cancer, status post chemotherapy. 4. s/p rectosigmoid resection, POD #7 with peritonitis. Subjective Subjective No cardiac events noted. Objective Last 24 Hour Vital Signs Date Time Temp Pulse Resp B/P (MAP) Pulse Ox O2 Delivery O2 Flow Rate FiO2 09/29/17 20:00 97.7 98 18 118/83 100 Room Air 09/29/17 18:35 98.1 09/29/17 16:00 98.4 94 18 114/74 99 09/29/17 12:00 98.1 86 20 115/73 97 09/29/17 08:30 98.1 09/29/17 08:00 98.6 94 20 122/76 98 09/29/17 04:00 98.1 89 18 109/71 97 Room Air 09/29/17 00:00 98.1 90 18 111/72 98 Room Air Intake and Output 09/28/17 09/29/17 19:00 07:00 Intake Total 880.0 ml 604.5 ml Output Total 30 ml Balance 880.0 ml 574.5 ml IV Total 880.0 ml 604.5 ml Stool Total 5 ml Drainage Total 25 ml # Voids 6 5 Laboratory Tests Test 09/29/17 04:50 White Blood Count 15.5 K/UL (4.8-10.8) H Red Blood Count 4.66 M/UL (4.20-5.40) Hemoglobin 13.1 G/DL (12.0-16.0) Hematocrit 41.0 % (37.0-47.0) Mean Corpuscular Volume 88 FL (80-99) Mean Corpuscular Hemoglobin 28.1 PG (27.0-31.0) Mean Corpuscular Hemoglobin Concent 31.9 G/DL (32.0-36.0) L Red Cell Distribution Width 15.4 % (11.6-14.8) H Platelet Count 467 K/UL (150-450) H Mean Platelet Volume 5.2 FL (6.5-10.1) L Neutrophils (%) (Auto) % (45.0-75.0) Lymphocytes (%) (Auto) % (20.0-45.0) Monocytes (%) (Auto) % (1.0-10.0) Eosinophils (%) (Auto) % (0.0-3.0) Basophils (%) (Auto) % (0.0-2.0) Differential Total Cells Counted 100 Neutrophils % (Manual) 93 % (45-75) H Lymphocytes % (Manual) 7 % (20-45) L Monocytes % (Manual) 0 % (1-10) L Eosinophils % (Manual) 0 % (0-3) Basophils % (Manual) 0 % (0-2) Band Neutrophils 0 % (0-8) Platelet Estimate Adequate Platelet Morphology Normal Hypochromasia 1+ Anisocytosis 1+ Sodium Level 135 MMOL/L (136-145) L Potassium Level 3.6 MMOL/L (3.5-5.1) Chloride Level 97 MMOL/L (98-107) L Carbon Dioxide Level 33 MMOL/L (21-32) H Anion Gap 5 mmol/L (5-15) Blood Urea Nitrogen 5 mg/dL (7-18) L Creatinine 0.5 MG/DL (0.55-1.30) L Estimat Glomerular Filtration Rate > 60 mL/min (>60) Glucose Level 100 MG/DL (74-106) Calcium Level 8.6 MG/DL (8.5-10.1) Phosphorus Level 3.3 MG/DL (2.5-4.9) Magnesium Level 1.9 MG/DL (1.8-2.4) Objective HEENT: Atraumatic and normocephalic. Anicteric. Pupils are equal, round, and reactive to light and accommodation. There is conjunctival pallor. NECK: JVP less than 5 cm. No carotid bruit. Carotid upstrokes 2+ bilaterally. CARDIOVASCULAR: Normal S1 and S2. Regular rate and rhythm. No murmurs, gallops, or rubs. LUNGS: Clear to auscultation bilaterally. ABDOMEN: Soft, nontender, and nondistended. No hepatosplenomegaly. Positive bowel sounds. EXTREMITIES: No evidence of edema, clubbing, or cyanosis. JUDITH WATSON Sep 29, 2017 21:48
[2017-09-30] VITALS: BP 113/76
[2017-09-30 04:12] VITALS: BP 121/47
[2017-09-30] MEDS: Insulin NovoLOG Flexpen S/S (insulin sensitive) SUBQ SCH ×4 (06:00→18:33)
[2017-09-30 07:00] LABS: HEMATOCRIT 38.5 % (37.0-47.0); HEMOGLOBIN 12.3 G/DL (12.0-16.0); MEAN CORPUSCULAR VOLUME 89 FL (80-99); PLATELET COUNT 530 K/UL (150-450); RED BLOOD COUNT 4.33 M/UL (4.20-5.40); RED CELL DISTRIBUTION WIDTH 15.9 % (11.6-14.8); WHITE BLOOD COUNT 17.6 K/UL (4.8-10.8)
[2017-09-30 07:11] LABS: ALANINE AMINOTRANSFERASE 22 U/L (12-78); ALBUMIN 1.7 G/DL (3.4-5.0); ALBUMIN/GLOBULIN RATIO 0.3 (1.0-2.7); ALKALINE PHOSPHATASE 132 U/L (46-116); ANION GAP 3 mmol/L (5-15); ASPARTATE AMINO TRANSFERASE 22 U/L (15-37); BILIRUBIN,TOTAL 1.7 MG/DL (0.2-1.0); BLOOD UREA NITROGEN 6 mg/dL (7-18); CALCIUM 9.1 MG/DL (8.5-10.1); CARBON DIOXIDE 33 MMOL/L (21-32); CHLORIDE 98 MMOL/L (98-107); CREATININE 0.5 MG/DL (0.55-1.30); PHOSPHORUS 2.9 MG/DL (2.5-4.9); SODIUM 134 MMOL/L (136-145)
[2017-09-30 07:15] LABS: BILIRUBIN,DIRECT 1.1 MG/DL (0.0-0.3)
[2017-09-30 08:00] VITALS: BP 111/68
[2017-09-30] MEDS: Pantoprazole Inj IVP SCH (08:51)
[2017-09-30] MEDS: Docusate Sod/Senna tab ORAL SCH ×2 (08:51→18:18)
[2017-09-30] MEDS: Heparin 5000 units/ml inj SUBQ SCH ×2 (08:53→20:12)
--- NOTE | 2017-09-30 09:17 | General Progress Note ---
Assessment/Plan Problem List: (1) Anemia ICD Codes: D64.9 - Anemia, unspecified SNOMED: 825819354 Qualifiers: Qualified Codes: D64.9 - Anemia, unspecified (2) GI bleed ICD Codes: K92.2 - Gastrointestinal hemorrhage, unspecified SNOMED: 63779326 Qualifiers: Qualified Codes: K92.2 - Gastrointestinal hemorrhage, unspecified (3) Abdominal pain ICD Codes: R10.9 - Unspecified abdominal pain SNOMED: 08234084 Qualifiers: Qualified Codes: R10.13 - Epigastric pain Status: stable, progressing, tolerating diet Assessment/Plan ot pt diet cbc bmp am gi f/u id eval Subjective Constitutional: Reports: weakness Allergies: Coded Allergies: No Known Allergies (Unverified , 09/10/17) All Systems: reviewed and negative except above Subjective sharif clear liquid Objective Last 24 Hour Vital Signs Date Time Temp Pulse Resp B/P (MAP) Pulse Ox O2 Delivery O2 Flow Rate FiO2 09/30/17 08:00 97.7 20 111/68 99 09/30/17 04:12 97.2 98 20 121/47 99 09/30/17 00:00 97.0 93 18 113/76 98 09/29/17 20:00 97.7 98 18 118/83 100 Room Air 09/29/17 18:35 98.1 09/29/17 16:00 98.4 94 18 114/74 99 09/29/17 12:00 98.1 86 20 115/73 97 Intake and Output 09/29/17 09/30/17 19:00 07:00 Intake Total 947.50 ml Output Total 13 ml 30 ml Balance 934.50 ml -30 ml Intake Oral 100 ml IV Total 847.50 ml Stool Total 0 ml 15 ml Drainage Total 13 ml 15 ml # Voids 4 4 Laboratory Tests 09/30/17 05:50: White Blood Count 17.6H, Red Blood Count 4.33, Hemoglobin 12.3, Hematocrit 38.5 , Mean Corpuscular Volume 89, Mean Corpuscular Hemoglobin 28.5, Mean Corpuscular Hemoglobin Concent 32.0, Red Cell Distribution Width 15.9H, Platelet Count 530H, Mean Platelet Volume 5.2L, Neutrophils (%) (Auto) , Lymphocytes (%) (Auto) , Monocytes (%) (Auto) , Eosinophils (%) (Auto) , Basophils (%) (Auto) , Differential Total Cells Counted 100, Neutrophils % ( Manual) 90H, Lymphocytes % (Manual) 5L, Monocytes % (Manual) 2, Eosinophils % ( Manual) 2, Basophils % (Manual) 0, Band Neutrophils 1, Platelet Estimate IncreasedH, Platelet Morphology Normal, Hypochromasia 1+, Anisocytosis 1+, Sodium Level 134L, Potassium Level 5.0, Chloride Level 98, Carbon Dioxide Level 33H, Anion Gap 3L, Blood Urea Nitrogen 6L, Creatinine 0.5L, Estimat Glomerular Filtration Rate > 60, Glucose Level 110H, Calcium Level 9.1, Phosphorus Level 2.9, Magnesium Level 1.9, Total Bilirubin 1.7H, Direct Bilirubin 1.1H, Aspartate Amino Transf (AST/SGOT) 22, Alanine Aminotransferase (ALT/SGPT) 22, Alkaline Phosphatase 132H, Total Protein 6.8, Albumin 1.7L, Globulin 5.1, Albumin/Globulin Ratio 0.3L Height (Feet): 5 Height (Inches): 3.00 Weight (Pounds): 72 General Appearance: lethargic EENT: normal ENT inspection Neck: normal alignment Cardiovascular: normal rate Respiratory/Chest: chest wall non-tender, lungs clear, normal breath sounds Abdomen: normal bowel sounds, non tender, soft Extremities: normal inspection Edema: no edema noted Arm (L), no edema noted Arm (R), no edema noted Leg (L), no edema noted Leg (R), no edema noted Pedal (L), no edema noted Pedal (R), no edema noted Generalized Neurologic: responsive, motor weakness Skin: normal pigmentation, warm/dry SONIDO FELICIANO Sep 30, 2017 09:17
--- NOTE | 2017-09-30 09:43 | Pulmonology Progress Note ---
Assessment/Plan Problems: (1) Intra-abdominal free air of unknown etiology (2) Perforated sigmoid colon (3) Sepsis Assessment/Plan no new complains all reviewed iv abx iv fluid check cultures pain management continue NG suction chagne IV fluid check electroltyes. advance feeding as tolerated, tolerating well Subjective Interval Events: eating well Allergies: Coded Allergies: No Known Allergies (Unverified , 09/10/17) Objective Last 24 Hour Vital Signs Date Time Temp Pulse Resp B/P (MAP) Pulse Ox O2 Delivery O2 Flow Rate FiO2 09/30/17 08:00 97.7 20 111/68 99 09/30/17 04:12 97.2 98 20 121/47 99 09/30/17 00:00 97.0 93 18 113/76 98 09/29/17 20:00 97.7 98 18 118/83 100 Room Air 09/29/17 18:35 98.1 09/29/17 16:00 98.4 94 18 114/74 99 09/29/17 12:00 98.1 86 20 115/73 97 Intake and Output 09/29/17 09/30/17 19:00 07:00 Intake Total 947.50 ml Output Total 13 ml 30 ml Balance 934.50 ml -30 ml Intake Oral 100 ml IV Total 847.50 ml Stool Total 0 ml 15 ml Drainage Total 13 ml 15 ml # Voids 4 4 Objective General Appearance: WD/WN, no apparent distress, ON tpn, NGtube in place HEENT: normocephalic, atraumatic Neck: non-tender, normal alignment Respiratory/Chest: chest wall non-tender, lungs clear Breasts: no masses Cardiovascular/Chest: normal rate Abdomen: normal bowel sounds, no organomegaly Genitourinary/Rectal: normal genital exam Extremities: normal range of motion Laboratory Tests 09/30/17 05:50: White Blood Count 17.6H, Red Blood Count 4.33, Hemoglobin 12.3, Hematocrit 38.5 , Mean Corpuscular Volume 89, Mean Corpuscular Hemoglobin 28.5, Mean Corpuscular Hemoglobin Concent 32.0, Red Cell Distribution Width 15.9H, Platelet Count 530H, Mean Platelet Volume 5.2L, Neutrophils (%) (Auto) , Lymphocytes (%) (Auto) , Monocytes (%) (Auto) , Eosinophils (%) (Auto) , Basophils (%) (Auto) , Differential Total Cells Counted 100, Neutrophils % ( Manual) 90H, Lymphocytes % (Manual) 5L, Monocytes % (Manual) 2, Eosinophils % ( Manual) 2, Basophils % (Manual) 0, Band Neutrophils 1, Platelet Estimate IncreasedH, Platelet Morphology Normal, Hypochromasia 1+, Anisocytosis 1+, Sodium Level 134L, Potassium Level 5.0, Chloride Level 98, Carbon Dioxide Level 33H, Anion Gap 3L, Blood Urea Nitrogen 6L, Creatinine 0.5L, Estimat Glomerular Filtration Rate > 60, Glucose Level 110H, Calcium Level 9.1, Phosphorus Level 2.9, Magnesium Level 1.9, Total Bilirubin 1.7H, Direct Bilirubin 1.1H, Aspartate Amino Transf (AST/SGOT) 22, Alanine Aminotransferase (ALT/SGPT) 22, Alkaline Phosphatase 132H, Total Protein 6.8, Albumin 1.7L, Globulin 5.1, Albumin/Globulin Ratio 0.3L Current Medications Medications (Trade) Dose Ordered Sig/Francoise Route PRN Reason Start Time Stop Time Status Last Admin Dose Admin Acetaminophen (Tylenol) 650 mg Q4H PRN RECTAL FEVER 09/25/17 16:30 10/22/17 16:29 Chlorhexidine Gluconate (Kenia-Hex 2%) 1 applic DAILY@2000 TOPIC 09/25/17 20:00 10/24/17 19:59 09/29/17 20:27 Dextrose (Dextrose 50%) No Dose PRN IV hypoglycemia 09/28/17 00:00 10/28/17 00:00 Fat Emulsion Intravenous 168 ml/Amino Acids/ Electrolytes/ Dextrose 1,320 ml @ 55 mls/hr Q24H IV 09/28/17 20:00 10/28/17 19:59 09/29/17 20:30 Fluconazole/ Sodium Chloride 100 ml @ 100 mls/hr Q24H IV 09/27/17 18:00 10/04/17 17:59 09/29/17 17:22 Heparin Sodium (Porcine) (Heparin 5000 units/ml) 5,000 units EVERY 12 HOURS SUBQ 09/25/17 21:00 10/23/17 08:59 09/30/17 08:53 Hydromorphone HCl (Dilaudid) 1 mg Q3H PRN IVP pain score 4-6 09/29/17 10:45 10/03/17 23:59 Hydromorphone HCl (Dilaudid) 3 mg Q2H PRN IVP pain score 7-10 09/29/17 10:30 10/04/17 23:59 09/30/17 08:52 Insulin Aspart (NovoLOG) No Dose Q6HR SUBQ 09/28/17 00:00 10/28/17 00:00 09/28/17 18:05 Levofloxacin 150 ml @ 100 mls/hr Q24H IVPB 09/29/17 20:00 10/06/17 19:59 09/29/17 20:28 Ondansetron HCl (Zofran) 4 mg Q6H PRN IVP Nausea & Vomiting 09/25/17 16:30 10/22/17 16:29 Pantoprazole (Protonix) 40 mg DAILY IVP 09/26/17 09:00 10/23/17 08:59 09/30/17 08:51 Phytonadione (Vitamin K) 10 mg QWEEK SUBQ 09/27/17 20:00 10/27/17 19:59 09/27/17 21:36 Senna/Docusate Sodium (Jinny-Colace) 1 tab TWICE A DAY ORAL 09/29/17 18:00 10/29/17 17:59 09/30/17 08:51 JL CHAVEZ Sep 30, 2017 09:43
[2017-09-30 12:53] VITALS: BP 112/70
--- NOTE | 2017-09-30 13:29 | General Surgery Progress Note ---
General Surgery-Progress Note Objective Last 24 Hour Vital Signs Date Time Temp Pulse Resp B/P (MAP) Pulse Ox O2 Delivery O2 Flow Rate FiO2 09/30/17 12:53 97.3 89 20 112/70 98 09/30/17 08:00 97.7 20 111/68 99 09/30/17 04:12 97.2 98 20 121/47 99 09/30/17 00:00 97.0 93 18 113/76 98 09/29/17 20:00 97.7 98 18 118/83 100 Room Air 09/29/17 18:35 98.1 09/29/17 16:00 98.4 94 18 114/74 99 I&O Intake and Output 09/29/17 09/30/17 19:00 07:00 Intake Total 947.50 ml Output Total 13 ml 30 ml Balance 934.50 ml -30 ml Intake Oral 100 ml IV Total 847.50 ml Stool Total 0 ml 15 ml Drainage Total 13 ml 15 ml # Voids 4 4 Wound: other - packing Drains: james Respiratory: clear Abdomen: soft, flat, non-tender, present bowel sounds Extremities: no tenderness Laboratory Tests Test 09/30/17 05:50 White Blood Count 17.6 K/UL (4.8-10.8) H Red Blood Count 4.33 M/UL (4.20-5.40) Hemoglobin 12.3 G/DL (12.0-16.0) Hematocrit 38.5 % (37.0-47.0) Mean Corpuscular Volume 89 FL (80-99) Mean Corpuscular Hemoglobin 28.5 PG (27.0-31.0) Mean Corpuscular Hemoglobin Concent 32.0 G/DL (32.0-36.0) Red Cell Distribution Width 15.9 % (11.6-14.8) H Platelet Count 530 K/UL (150-450) H Mean Platelet Volume 5.2 FL (6.5-10.1) L Neutrophils (%) (Auto) % (45.0-75.0) Lymphocytes (%) (Auto) % (20.0-45.0) Monocytes (%) (Auto) % (1.0-10.0) Eosinophils (%) (Auto) % (0.0-3.0) Basophils (%) (Auto) % (0.0-2.0) Differential Total Cells Counted 100 Neutrophils % (Manual) 90 % (45-75) H Lymphocytes % (Manual) 5 % (20-45) L Monocytes % (Manual) 2 % (1-10) Eosinophils % (Manual) 2 % (0-3) Basophils % (Manual) 0 % (0-2) Band Neutrophils 1 % (0-8) Platelet Estimate Increased H Platelet Morphology Normal Hypochromasia 1+ Anisocytosis 1+ Sodium Level 134 MMOL/L (136-145) L Potassium Level 5.0 MMOL/L (3.5-5.1) Chloride Level 98 MMOL/L (98-107) Carbon Dioxide Level 33 MMOL/L (21-32) H Anion Gap 3 mmol/L (5-15) L Blood Urea Nitrogen 6 mg/dL (7-18) L Creatinine 0.5 MG/DL (0.55-1.30) L Estimat Glomerular Filtration Rate > 60 mL/min (>60) Glucose Level 110 MG/DL (74-106) H Calcium Level 9.1 MG/DL (8.5-10.1) Phosphorus Level 2.9 MG/DL (2.5-4.9) Magnesium Level 1.9 MG/DL (1.8-2.4) Total Bilirubin 1.7 MG/DL (0.2-1.0) H Direct Bilirubin 1.1 MG/DL (0.0-0.3) H Aspartate Amino Transf (AST/SGOT) 22 U/L (15-37) Alanine Aminotransferase (ALT/SGPT) 22 U/L (12-78) Alkaline Phosphatase 132 U/L (46-116) H Total Protein 6.8 G/DL (6.4-8.2) Albumin 1.7 G/DL (3.4-5.0) L Globulin 5.1 g/dL Albumin/Globulin Ratio 0.3 (1.0-2.7) L Assessment Post-op Diagnosis perforation of cecum and recto-sigmoid Plan Additional Comments diet DWAYNE OLIVER Sep 30, 2017 13:29
--- NOTE | 2017-09-30 15:16 | Nephrology Progress Note ---
Assessment/Plan Assessment 1. Acute renal failure 2. Hyponatremia. 3. Malnutrition. 4. hyperkalemia. 5. Dehydration. 6. History of cervical cancer. Plan plan to continue IVF monitoring renal function avoid NSAID replace electrolyte as need it mix all IV with NS Subjective Subjective alert and awake no complaints Objective Objective Last 24 Hour Vital Signs Date Time Temp Pulse Resp B/P (MAP) Pulse Ox O2 Delivery O2 Flow Rate FiO2 09/30/17 12:53 97.3 89 20 112/70 98 09/30/17 08:00 97.7 20 111/68 99 09/30/17 04:12 97.2 98 20 121/47 99 09/30/17 00:00 97.0 93 18 113/76 98 09/29/17 20:00 97.7 98 18 118/83 100 Room Air 09/29/17 18:35 98.1 09/29/17 16:00 98.4 94 18 114/74 99 Intake and Output 09/29/17 09/30/17 19:00 07:00 Intake Total 947.50 ml Output Total 13 ml 30 ml Balance 934.50 ml -30 ml Intake Oral 100 ml IV Total 847.50 ml Stool Total 0 ml 15 ml Drainage Total 13 ml 15 ml # Voids 4 4 Laboratory Tests 09/30/17 05:50: White Blood Count 17.6H, Red Blood Count 4.33, Hemoglobin 12.3, Hematocrit 38.5 , Mean Corpuscular Volume 89, Mean Corpuscular Hemoglobin 28.5, Mean Corpuscular Hemoglobin Concent 32.0, Red Cell Distribution Width 15.9H, Platelet Count 530H, Mean Platelet Volume 5.2L, Neutrophils (%) (Auto) , Lymphocytes (%) (Auto) , Monocytes (%) (Auto) , Eosinophils (%) (Auto) , Basophils (%) (Auto) , Differential Total Cells Counted 100, Neutrophils % ( Manual) 90H, Lymphocytes % (Manual) 5L, Monocytes % (Manual) 2, Eosinophils % ( Manual) 2, Basophils % (Manual) 0, Band Neutrophils 1, Platelet Estimate IncreasedH, Platelet Morphology Normal, Hypochromasia 1+, Anisocytosis 1+, Sodium Level 134L, Potassium Level 5.0, Chloride Level 98, Carbon Dioxide Level 33H, Anion Gap 3L, Blood Urea Nitrogen 6L, Creatinine 0.5L, Estimat Glomerular Filtration Rate > 60, Glucose Level 110H, Calcium Level 9.1, Phosphorus Level 2.9, Magnesium Level 1.9, Total Bilirubin 1.7H, Direct Bilirubin 1.1H, Aspartate Amino Transf (AST/SGOT) 22, Alanine Aminotransferase (ALT/SGPT) 22, Alkaline Phosphatase 132H, Total Protein 6.8, Albumin 1.7L, Globulin 5.1, Albumin/Globulin Ratio 0.3L Height (Feet): 5 Height (Inches): 3.00 Weight (Pounds): 72 Objective HEAD AND NECK: No JVP. No LAD. No thyromegaly. Extraocular movement intact. Pupils are reactive to light and accommodation. LUNGS: Decreased breathing sounds. CARDIAC: Regular rate and rhythm. S1 and S2. No murmur. No rub. ABDOMEN: Distended. Bowel sounds are positive. Diffuse tenderness. No guarding. No rebound. EXTREMITIES: A 1+ to 2+ edema. No clubbing. No cyanosis. NEUROLOGIC: Cranial nerves II through XII within normal limits. Upper and lower extremities are grossly intact. LORRAINE GROVER Sep 30, 2017 15:16
--- NOTE | 2017-09-30 15:18 | General Progress Note ---
Assessment/Plan Assessment/Plan Assessment/Plan Problems: (1) Perforation of cecum ICD Codes: K63.1 - Perforation of intestine (nontraumatic) SNOMED: 494719259 (2) Perforated sigmoid colon ICD Codes: K63.1 - Perforation of intestine (nontraumatic) SNOMED: 742731386 (3) Intra-abdominal free air of unknown etiology ICD Codes: K66.8 - Other specified disorders of peritoneum SNOMED: 79111873 (4) Abdominal pain ICD Codes: R10.9 - Unspecified abdominal pain SNOMED: 10531691 Qualifiers: Qualified Codes: R10.13 - Epigastric pain (5) GI bleed ICD Codes: K92.2 - Gastrointestinal hemorrhage, unspecified SNOMED: 33508581 Qualifiers: Qualified Codes: K92.2 - Gastrointestinal hemorrhage, unspecified (6) Anemia ICD Codes: D64.9 - Anemia, unspecified SNOMED: 176645742 Assessment/Plan post op care fu surgical recs TPN PT evaluation pain control fu labs Subjective Allergies: Coded Allergies: No Known Allergies (Unverified , 09/10/17) Subjective Above noted no new complaints on TPN Objective Last 24 Hour Vital Signs Date Time Temp Pulse Resp B/P (MAP) Pulse Ox O2 Delivery O2 Flow Rate FiO2 09/30/17 12:53 97.3 89 20 112/70 98 09/30/17 08:00 97.7 20 111/68 99 09/30/17 04:12 97.2 98 20 121/47 99 09/30/17 00:00 97.0 93 18 113/76 98 09/29/17 20:00 97.7 98 18 118/83 100 Room Air 09/29/17 18:35 98.1 09/29/17 16:00 98.4 94 18 114/74 99 Intake and Output 09/29/17 09/30/17 19:00 07:00 Intake Total 947.50 ml Output Total 13 ml 30 ml Balance 934.50 ml -30 ml Intake Oral 100 ml IV Total 847.50 ml Stool Total 0 ml 15 ml Drainage Total 13 ml 15 ml # Voids 4 4 Laboratory Tests 09/30/17 05:50: White Blood Count 17.6H, Red Blood Count 4.33, Hemoglobin 12.3, Hematocrit 38.5 , Mean Corpuscular Volume 89, Mean Corpuscular Hemoglobin 28.5, Mean Corpuscular Hemoglobin Concent 32.0, Red Cell Distribution Width 15.9H, Platelet Count 530H, Mean Platelet Volume 5.2L, Neutrophils (%) (Auto) , Lymphocytes (%) (Auto) , Monocytes (%) (Auto) , Eosinophils (%) (Auto) , Basophils (%) (Auto) , Differential Total Cells Counted 100, Neutrophils % ( Manual) 90H, Lymphocytes % (Manual) 5L, Monocytes % (Manual) 2, Eosinophils % ( Manual) 2, Basophils % (Manual) 0, Band Neutrophils 1, Platelet Estimate IncreasedH, Platelet Morphology Normal, Hypochromasia 1+, Anisocytosis 1+, Sodium Level 134L, Potassium Level 5.0, Chloride Level 98, Carbon Dioxide Level 33H, Anion Gap 3L, Blood Urea Nitrogen 6L, Creatinine 0.5L, Estimat Glomerular Filtration Rate > 60, Glucose Level 110H, Calcium Level 9.1, Phosphorus Level 2.9, Magnesium Level 1.9, Total Bilirubin 1.7H, Direct Bilirubin 1.1H, Aspartate Amino Transf (AST/SGOT) 22, Alanine Aminotransferase (ALT/SGPT) 22, Alkaline Phosphatase 132H, Total Protein 6.8, Albumin 1.7L, Globulin 5.1, Albumin/Globulin Ratio 0.3L Height (Feet): 5 Height (Inches): 3.00 Weight (Pounds): 72 Objective Thin AA woman NCAT supple CTA RR Soft ND, (+) LLQ ostomy, (+) wound, (+) two (R) sided drains no edema nonfocal REYNA SOLIS Sep 30, 2017 15:18
[2017-09-30] MEDS ORDERED: D5 1/2NS 1000ml IV ONE ×2 (16:19→16:20)
[2017-09-30] MEDS ORDERED: Tubing IV Secondary IV ONE (16:19)
[2017-09-30] MEDS ORDERED: NS 275ml ONE (16:19)
[2017-09-30] MEDS ORDERED: NS 500ML ONE (16:20)
[2017-09-30 16:40] VITALS: BP 117/78
[2017-09-30 20:00] VITALS: BP 132/88
[2017-09-30] MEDS: Dyna-Hex 2% Top Sol 2oz TOPIC SCH (20:10)
[2017-09-30] MEDS: FAT EMULSION 20% IV SCH (20:12)
[2017-09-30] MEDS: TPN IV SCH (20:12)
--- NOTE | 2017-09-30 20:58 | General Progress Note ---
Assessment/Plan Status: unchanged Assessment/Plan # Leukocytosis is likely reactive from Acute abdominal pain 2 to perforation with perforated cecum and rectosigmoid s/p exp laparotomy with partial R hemicolectomy --> worsened from yesterday, continue to closely monitor. # Cervical Ca s/p surgery and radiation, has not received any chemotherapy recently # Thrombocytosis is likely related to chronic reactive process --> worsened from yesterday, cont monitor closely # Anemia of chronic disease --> w/u has been reviewed --> Blood transfusion not required unless symptomatic or hgb <7 # Anemia of GI bleeding --> GI followup. # Severe protein calorie malnutrition Subjective Date patient seen: Sep 30, 2017 Constitutional: Denies: no symptoms, chills, diaphoresis, fever, malaise, weakness, other HEENT: Denies: no symptoms, eye pain, blurred vision, tearing, double vision, ear pain, ear discharge, nose pain, nose congestion, throat pain, throat swelling, mouth pain, mouth swelling, other Cardiovascular: Denies: no symptoms, chest pain, edema, irregular heart rate, lightheadedness, palpitations, syncope, other Respiratory: Denies: no symptoms, cough, orthopnea, shortness of breath, SOB with excertion, SOB at rest, sputum, stridor, wheezing, other Gastrointestinal/Abdominal: Denies: no symptoms, abdomen distended, abdominal pain, black stools, tarry stools, blood in stool, constipated, diarrhea, difficulty swallowing, nausea, poor appetite, poor fluid intake, rectal bleeding , vomiting, other Genitourinary: Denies: no symptoms, burning, discharge, frequency, flank pain, hematuria, incontinence, pain, urgency, other Hematologic/Lymphatic: Reports: anemia Allergies: Coded Allergies: No Known Allergies (Unverified , 09/10/17) Subjective Remains lethargic. No new events overnight. On TPN. Objective Last 24 Hour Vital Signs Date Time Temp Pulse Resp B/P (MAP) Pulse Ox O2 Delivery O2 Flow Rate FiO2 09/30/17 20:00 97.8 93 19 132/88 100 09/30/17 16:40 97.9 97 20 117/78 99 09/30/17 14:39 97.3 09/30/17 12:53 97.3 89 20 112/70 98 09/30/17 08:00 97.7 20 111/68 99 09/30/17 04:12 97.2 98 20 121/47 99 09/30/17 00:00 97.0 93 18 113/76 98 Intake and Output 09/29/17 09/30/17 19:00 07:00 Intake Total 947.50 ml Output Total 13 ml 30 ml Balance 934.50 ml -30 ml Intake Oral 100 ml IV Total 847.50 ml Stool Total 0 ml 15 ml Drainage Total 13 ml 15 ml # Voids 4 4 Laboratory Tests 09/30/17 05:50: White Blood Count 17.6H, Red Blood Count 4.33, Hemoglobin 12.3, Hematocrit 38.5 , Mean Corpuscular Volume 89, Mean Corpuscular Hemoglobin 28.5, Mean Corpuscular Hemoglobin Concent 32.0, Red Cell Distribution Width 15.9H, Platelet Count 530H, Mean Platelet Volume 5.2L, Neutrophils (%) (Auto) , Lymphocytes (%) (Auto) , Monocytes (%) (Auto) , Eosinophils (%) (Auto) , Basophils (%) (Auto) , Differential Total Cells Counted 100, Neutrophils % ( Manual) 90H, Lymphocytes % (Manual) 5L, Monocytes % (Manual) 2, Eosinophils % ( Manual) 2, Basophils % (Manual) 0, Band Neutrophils 1, Platelet Estimate IncreasedH, Platelet Morphology Normal, Hypochromasia 1+, Anisocytosis 1+, Sodium Level 134L, Potassium Level 5.0, Chloride Level 98, Carbon Dioxide Level 33H, Anion Gap 3L, Blood Urea Nitrogen 6L, Creatinine 0.5L, Estimat Glomerular Filtration Rate > 60, Glucose Level 110H, Calcium Level 9.1, Phosphorus Level 2.9, Magnesium Level 1.9, Total Bilirubin 1.7H, Direct Bilirubin 1.1H, Aspartate Amino Transf (AST/SGOT) 22, Alanine Aminotransferase (ALT/SGPT) 22, Alkaline Phosphatase 132H, Total Protein 6.8, Albumin 1.7L, Globulin 5.1, Albumin/Globulin Ratio 0.3L Height (Feet): 5 Height (Inches): 3.00 Weight (Pounds): 72 General Appearance: lethargic Cardiovascular: normal rate Respiratory/Chest: decreased breath sounds Abdomen: soft Chris Spencer Sep 30, 2017 20:58
--- NOTE | 2017-09-30 23:54 | Cardiology Progress Note ---
Assessment/Plan Assessment/Plan 1. Sinus tachycardia, resolved, most likely due to volume depletion, continue hydration. 2. Hypotension, due to intravascular volume depletion, continue hydration. 3. History of cervical cancer, status post chemotherapy. 4. s/p rectosigmoid resection, POD #8 with peritonitis. Subjective Subjective Denies chest pain or SOB. Off the telemetry unit. Objective Last 24 Hour Vital Signs Date Time Temp Pulse Resp B/P (MAP) Pulse Ox O2 Delivery O2 Flow Rate FiO2 09/30/17 20:00 97.8 93 19 132/88 100 09/30/17 16:40 97.9 97 20 117/78 99 09/30/17 14:39 97.3 09/30/17 12:53 97.3 89 20 112/70 98 09/30/17 08:00 97.7 20 111/68 99 09/30/17 04:12 97.2 98 20 121/47 99 09/30/17 00:00 97.0 93 18 113/76 98 Intake and Output 09/29/17 09/30/17 19:00 07:00 Intake Total 947.50 ml Output Total 13 ml 30 ml Balance 934.50 ml -30 ml Intake Oral 100 ml IV Total 847.50 ml Stool Total 0 ml 15 ml Drainage Total 13 ml 15 ml # Voids 4 4 Laboratory Tests Test 09/30/17 05:50 White Blood Count 17.6 K/UL (4.8-10.8) H Red Blood Count 4.33 M/UL (4.20-5.40) Hemoglobin 12.3 G/DL (12.0-16.0) Hematocrit 38.5 % (37.0-47.0) Mean Corpuscular Volume 89 FL (80-99) Mean Corpuscular Hemoglobin 28.5 PG (27.0-31.0) Mean Corpuscular Hemoglobin Concent 32.0 G/DL (32.0-36.0) Red Cell Distribution Width 15.9 % (11.6-14.8) H Platelet Count 530 K/UL (150-450) H Mean Platelet Volume 5.2 FL (6.5-10.1) L Neutrophils (%) (Auto) % (45.0-75.0) Lymphocytes (%) (Auto) % (20.0-45.0) Monocytes (%) (Auto) % (1.0-10.0) Eosinophils (%) (Auto) % (0.0-3.0) Basophils (%) (Auto) % (0.0-2.0) Differential Total Cells Counted 100 Neutrophils % (Manual) 90 % (45-75) H Lymphocytes % (Manual) 5 % (20-45) L Monocytes % (Manual) 2 % (1-10) Eosinophils % (Manual) 2 % (0-3) Basophils % (Manual) 0 % (0-2) Band Neutrophils 1 % (0-8) Platelet Estimate Increased H Platelet Morphology Normal Hypochromasia 1+ Anisocytosis 1+ Sodium Level 134 MMOL/L (136-145) L Potassium Level 5.0 MMOL/L (3.5-5.1) Chloride Level 98 MMOL/L (98-107) Carbon Dioxide Level 33 MMOL/L (21-32) H Anion Gap 3 mmol/L (5-15) L Blood Urea Nitrogen 6 mg/dL (7-18) L Creatinine 0.5 MG/DL (0.55-1.30) L Estimat Glomerular Filtration Rate > 60 mL/min (>60) Glucose Level 110 MG/DL (74-106) H Calcium Level 9.1 MG/DL (8.5-10.1) Phosphorus Level 2.9 MG/DL (2.5-4.9) Magnesium Level 1.9 MG/DL (1.8-2.4) Total Bilirubin 1.7 MG/DL (0.2-1.0) H Direct Bilirubin 1.1 MG/DL (0.0-0.3) H Aspartate Amino Transf (AST/SGOT) 22 U/L (15-37) Alanine Aminotransferase (ALT/SGPT) 22 U/L (12-78) Alkaline Phosphatase 132 U/L (46-116) H Total Protein 6.8 G/DL (6.4-8.2) Albumin 1.7 G/DL (3.4-5.0) L Globulin 5.1 g/dL Albumin/Globulin Ratio 0.3 (1.0-2.7) L Objective HEENT: Atraumatic and normocephalic. Anicteric. Pupils are equal, round, and reactive to light and accommodation. There is conjunctival pallor. NECK: JVP less than 5 cm. No carotid bruit. Carotid upstrokes 2+ bilaterally. CARDIOVASCULAR: Normal S1 and S2. Regular rate and rhythm. No murmurs, gallops, or rubs. LUNGS: Clear to auscultation bilaterally. ABDOMEN: Soft, nontender, and nondistended. No hepatosplenomegaly. Positive bowel sounds. EXTREMITIES: No evidence of edema, clubbing, or cyanosis. JUDITH WATSON Sep 30, 2017 23:54
[2017-10-01] VITALS: BP 106/78
[2017-10-01] MEDS: Insulin NovoLOG Flexpen S/S (insulin sensitive) SUBQ SCH ×4 (00:20→18:00)
[2017-10-01 04:00] VITALS: BP 114/66
--- NOTE | 2017-10-01 07:33 | General Progress Note ---
Assessment/Plan Problem List: (1) Anemia ICD Codes: D64.9 - Anemia, unspecified SNOMED: 998811948 Qualifiers: Qualified Codes: D64.9 - Anemia, unspecified (2) GI bleed ICD Codes: K92.2 - Gastrointestinal hemorrhage, unspecified SNOMED: 60149306 Qualifiers: Qualified Codes: K92.2 - Gastrointestinal hemorrhage, unspecified (3) Abdominal pain ICD Codes: R10.9 - Unspecified abdominal pain SNOMED: 55044366 Qualifiers: Qualified Codes: R10.13 - Epigastric pain Status: unchanged Assessment/Plan ot pt diet cbc bmp am gi f/u id eval Subjective Constitutional: Reports: weakness Allergies: Coded Allergies: No Known Allergies (Unverified , 09/10/17) All Systems: reviewed and negative except above Subjective sl nauseus Objective Last 24 Hour Vital Signs Date Time Temp Pulse Resp B/P (MAP) Pulse Ox O2 Delivery O2 Flow Rate FiO2 10/01/17 04:00 97.4 105 19 114/66 99 10/01/17 00:00 97.5 93 19 106/78 100 09/30/17 20:00 97.8 93 19 132/88 100 09/30/17 16:40 97.9 97 20 117/78 99 09/30/17 14:39 97.3 09/30/17 12:53 97.3 89 20 112/70 98 09/30/17 08:00 97.7 20 111/68 99 Intake and Output 09/30/17 10/01/17 19:00 07:00 Intake Total 275 ml 800 ml Output Total 616 ml Balance -341 ml 800 ml IV Total 275 ml 800 ml Output Urine Total 600 ml Drainage Total 16 ml # Voids 2 2 Height (Feet): 5 Height (Inches): 3.00 Weight (Pounds): 72 General Appearance: lethargic EENT: normal ENT inspection Neck: normal alignment Cardiovascular: normal peripheral pulses, normal rate, regular rhythm Respiratory/Chest: chest wall non-tender, lungs clear, normal breath sounds Abdomen: normal bowel sounds, non tender, soft Extremities: normal inspection Edema: no edema noted Arm (L), no edema noted Arm (R), no edema noted Leg (L), no edema noted Leg (R), no edema noted Pedal (L), no edema noted Pedal (R), no edema noted Generalized Neurologic: responsive, motor weakness Skin: normal pigmentation, warm/dry SONIDO FELICIANO Oct 01, 2017 07:33
[2017-10-01 08:02] LABS: HEMOGLOBIN 12.3 G/DL (12.0-16.0); MEAN CORPUSCULAR VOLUME 89 FL (80-99); PLATELET COUNT 460 K/UL (150-450); RED BLOOD COUNT 4.27 M/UL (4.20-5.40); RED CELL DISTRIBUTION WIDTH 15.8 % (11.6-14.8); WHITE BLOOD COUNT 17.5 K/UL (4.8-10.8)
[2017-10-01 08:15] LABS: ANION GAP 7 mmol/L (5-15); BLOOD UREA NITROGEN 7 mg/dL (7-18); CALCIUM 8.9 MG/DL (8.5-10.1); CARBON DIOXIDE 27 MMOL/L (21-32); CHLORIDE 98 MMOL/L (98-107); CREATININE 0.4 MG/DL (0.55-1.30); POTASSIUM 4.3 MMOL/L (3.5-5.1); SODIUM 132 MMOL/L (136-145)
[2017-10-01 08:24] VITALS: BP 99/61
[2017-10-01] MEDS: Pantoprazole Inj IVP SCH (08:26)
[2017-10-01] MEDS: Docusate Sod/Senna tab ORAL SCH ×2 (08:26→17:39)
[2017-10-01] MEDS: Heparin 5000 units/ml inj SUBQ SCH ×2 (08:29→20:22)
--- NOTE | 2017-10-01 09:47 | Infectious Diseases Prog Note ---
Assessment/Plan Assessment/Plan A; Perforated bowel Peritonitis with E. coli, Enterococcus, C. albicans & Prevotella Cervical cancer P: Change Levaquin to Unasyn &continue Fluconazole Subjective ROS Limited/Unobtainable: No Constitutional: Reports: no symptoms Respiratory: Reports: no symptoms Cardiovascular: Reports: no symptoms Gastrointestinal/Abdominal: Reports: other - started on PO diet, abdominal pain Genitourinary: Reports: no symptoms Allergies: Coded Allergies: No Known Allergies (Unverified , 09/10/17) Objective Vital Signs Last 24 Hour Vital Signs Date Time Temp Pulse Resp B/P (MAP) Pulse Ox O2 Delivery O2 Flow Rate FiO2 10/01/17 08:24 98.6 92 19 99/61 98 10/01/17 04:00 97.4 105 19 114/66 99 10/01/17 00:00 97.5 93 19 106/78 100 09/30/17 20:00 97.8 93 19 132/88 100 09/30/17 16:40 97.9 97 20 117/78 99 09/30/17 14:39 97.3 09/30/17 12:53 97.3 89 20 112/70 98 Height (Feet): 5 Height (Inches): 3.00 Weight (Pounds): 72 General Appearance: cachetic HEENT: mucous membranes moist Respiratory/Chest: lungs clear Cardiovascular: normal rate, other - RIJ line Extremities: no edema Neurologic/Psychiatric: alert, oriented x 3, responsive Laboratory Tests Test 10/01/17 06:20 White Blood Count 17.5 K/UL (4.8-10.8) H Red Blood Count 4.27 M/UL (4.20-5.40) Hemoglobin 12.3 G/DL (12.0-16.0) Hematocrit 38.0 % (37.0-47.0) Mean Corpuscular Volume 89 FL (80-99) Mean Corpuscular Hemoglobin 28.7 PG (27.0-31.0) Mean Corpuscular Hemoglobin Concent 32.3 G/DL (32.0-36.0) Red Cell Distribution Width 15.8 % (11.6-14.8) H Platelet Count 460 K/UL (150-450) H Mean Platelet Volume 5.0 FL (6.5-10.1) L Neutrophils (%) (Auto) % (45.0-75.0) Lymphocytes (%) (Auto) % (20.0-45.0) Monocytes (%) (Auto) % (1.0-10.0) Eosinophils (%) (Auto) % (0.0-3.0) Basophils (%) (Auto) % (0.0-2.0) Differential Total Cells Counted 100 Neutrophils % (Manual) 95 % (45-75) H Lymphocytes % (Manual) 4 % (20-45) L Monocytes % (Manual) 1 % (1-10) Eosinophils % (Manual) 0 % (0-3) Basophils % (Manual) 0 % (0-2) Band Neutrophils 0 % (0-8) Platelet Estimate Adequate Platelet Morphology Normal Hypochromasia 1+ Anisocytosis 1+ Sodium Level 132 MMOL/L (136-145) L Potassium Level 4.3 MMOL/L (3.5-5.1) Chloride Level 98 MMOL/L (98-107) Carbon Dioxide Level 27 MMOL/L (21-32) Anion Gap 7 mmol/L (5-15) Blood Urea Nitrogen 7 mg/dL (7-18) Creatinine 0.4 MG/DL (0.55-1.30) L Estimat Glomerular Filtration Rate > 60 mL/min (>60) Glucose Level 105 MG/DL (74-106) Calcium Level 8.9 MG/DL (8.5-10.1) Current Medications Medications (Trade) Dose Ordered Sig/Francoise Route PRN Reason Start Time Stop Time Status Last Admin Dose Admin Acetaminophen (Tylenol) 650 mg Q4H PRN RECTAL FEVER 09/25/17 16:30 10/22/17 16:29 Chlorhexidine Gluconate (Kenia-Hex 2%) 1 applic DAILY@1999 TOPIC 09/25/17 20:00 10/24/17 19:59 09/30/17 20:10 Dextrose (Dextrose 50%) No Dose PRN IV hypoglycemia 09/28/17 00:00 10/28/17 00:00 Fat Emulsion Intravenous 168 ml/Amino Acids/ Electrolytes/ Dextrose 1,320 ml @ 55 mls/hr Q24H IV 09/28/17 20:00 10/28/17 19:59 09/30/17 20:12 Fluconazole/ Sodium Chloride 100 ml @ 100 mls/hr Q24H IV 09/27/17 18:00 1/31/18 17:59 09/30/17 18:19 Heparin Sodium (Porcine) (Heparin 5000 units/ml) 5,000 units EVERY 12 HOURS SUBQ 09/25/17 21:00 10/23/17 08:59 10/01/17 08:29 Hydromorphone HCl (Dilaudid) 1 mg Q3H PRN IVP pain score 4-6 09/29/17 10:45 10/03/17 23:59 Hydromorphone HCl (Dilaudid) 3 mg Q2H PRN IVP pain score 7-10 09/29/17 10:30 10/04/17 23:59 10/01/17 08:18 Insulin Aspart (NovoLOG) No Dose Q6HR SUBQ 09/28/17 00:00 10/28/17 00:00 10/01/17 00:20 Levofloxacin 150 ml @ 100 mls/hr Q24H IVPB 09/29/17 20:00 10/06/17 19:59 09/30/17 20:11 Ondansetron HCl (Zofran) 4 mg Q6H PRN IVP Nausea & Vomiting 09/25/17 16:30 10/22/17 16:29 Pantoprazole (Protonix) 40 mg DAILY IVP 09/26/17 09:00 10/23/17 08:59 10/01/17 08:26 Phytonadione (Vitamin K) 10 mg QWEEK SUBQ 09/27/17 20:00 10/27/17 19:59 09/27/17 21:36 Senna/Docusate Sodium (Jinny-Colace) 1 tab TWICE A DAY ORAL 09/29/17 18:00 10/29/17 17:59 10/01/17 08:26 CHERYLE WOLFE Oct 01, 2017 09:47
--- NOTE | 2017-10-01 10:49 | Pulmonology Progress Note ---
Assessment/Plan Problems: (1) Intra-abdominal free air of unknown etiology (2) Perforated sigmoid colon (3) Sepsis Assessment/Plan no new complains all reviewed iv abx iv fluid check cultures pain management continue NG suction chagne IV fluid check electroltyes. advance feeding as tolerated, tolerating well Subjective ROS Limited/Unobtainable: No Constitutional: Reports: no symptoms HEENT: Repors: no symptoms Respiratory: Reports: no symptoms Allergies: Coded Allergies: No Known Allergies (Unverified , 09/10/17) Objective Last 24 Hour Vital Signs Date Time Temp Pulse Resp B/P (MAP) Pulse Ox O2 Delivery O2 Flow Rate FiO2 10/01/17 08:48 98.6 10/01/17 08:24 98.6 92 19 99/61 98 10/01/17 04:00 97.4 105 19 114/66 99 10/01/17 00:00 97.5 93 19 106/78 100 09/30/17 20:00 97.8 93 19 132/88 100 09/30/17 16:40 97.9 97 20 117/78 99 09/30/17 12:53 97.3 89 20 112/70 98 Intake and Output 09/30/17 10/01/17 19:00 07:00 Intake Total 275 ml 800 ml Output Total 616 ml Balance -341 ml 800 ml IV Total 275 ml 800 ml Output Urine Total 600 ml Drainage Total 16 ml # Voids 2 2 Objective General Appearance: WD/WN, no apparent distress, ON tpn, NGtube in place HEENT: normocephalic, atraumatic Neck: non-tender, normal alignment Respiratory/Chest: chest wall non-tender, lungs clear Breasts: no masses Cardiovascular/Chest: normal rate Abdomen: normal bowel sounds, no organomegaly Genitourinary/Rectal: normal genital exam Extremities: normal range of motion Laboratory Tests 10/01/17 06:20: White Blood Count 17.5H, Red Blood Count 4.27, Hemoglobin 12.3, Hematocrit 38.0 , Mean Corpuscular Volume 89, Mean Corpuscular Hemoglobin 28.7, Mean Corpuscular Hemoglobin Concent 32.3, Red Cell Distribution Width 15.8H, Platelet Count 460H, Mean Platelet Volume 5.0L, Neutrophils (%) (Auto) , Lymphocytes (%) (Auto) , Monocytes (%) (Auto) , Eosinophils (%) (Auto) , Basophils (%) (Auto) , Differential Total Cells Counted 100, Neutrophils % ( Manual) 95H, Lymphocytes % (Manual) 4L, Monocytes % (Manual) 1, Eosinophils % ( Manual) 0, Basophils % (Manual) 0, Band Neutrophils 0, Platelet Estimate Adequate, Platelet Morphology Normal, Hypochromasia 1+, Anisocytosis 1+, Sodium Level 132L, Potassium Level 4.3, Chloride Level 98, Carbon Dioxide Level 27, Anion Gap 7, Blood Urea Nitrogen 7, Creatinine 0.4L, Estimat Glomerular Filtration Rate > 60, Glucose Level 105, Calcium Level 8.9 Current Medications Medications (Trade) Dose Ordered Sig/Francoise Route PRN Reason Start Time Stop Time Status Last Admin Dose Admin Acetaminophen (Tylenol) 650 mg Q4H PRN RECTAL FEVER 09/25/17 16:30 10/22/17 16:29 Ampicillin Sodium/ Sulbactam Sodium 3 gm/Sodium Chloride 110 ml @ 220 mls/hr Q6HR IVPB 10/01/17 12:00 10/08/17 11:59 Chlorhexidine Gluconate (Kenia-Hex 2%) 1 applic DAILY@2000 TOPIC 09/25/17 20:00 10/24/17 19:59 09/30/17 20:10 Dextrose (Dextrose 50%) No Dose PRN IV hypoglycemia 09/28/17 00:00 10/28/17 00:00 Fat Emulsion Intravenous 168 ml/Amino Acids/ Electrolytes/ Dextrose 1,320 ml @ 55 mls/hr Q24H IV 09/28/17 20:00 10/28/17 19:59 09/30/17 20:12 Fluconazole/ Sodium Chloride 100 ml @ 100 mls/hr Q24H IV 09/27/17 18:00 10/04/17 17:59 09/30/17 18:19 Heparin Sodium (Porcine) (Heparin 5000 units/ml) 5,000 units EVERY 12 HOURS SUBQ 09/25/17 21:00 10/23/17 08:59 10/01/17 08:29 Hydromorphone HCl (Dilaudid) 1 mg Q3H PRN IVP pain score 4-6 09/29/17 10:45 10/03/17 23:59 Hydromorphone HCl (Dilaudid) 3 mg Q2H PRN IVP pain score 7-10 09/29/17 10:30 10/04/17 23:59 10/01/17 10:18 Insulin Aspart (NovoLOG) No Dose Q6HR SUBQ 09/28/17 00:00 10/28/17 00:00 10/01/17 00:20 Ondansetron HCl (Zofran) 4 mg Q6H PRN IVP Nausea & Vomiting 09/25/17 16:30 10/22/17 16:29 Pantoprazole (Protonix) 40 mg DAILY IVP 09/26/17 09:00 10/23/17 08:59 10/01/17 08:26 Phytonadione (Vitamin K) 10 mg QWEEK SUBQ 09/27/17 20:00 10/27/17 19:59 09/27/17 21:36 Senna/Docusate Sodium (Jinny-Colace) 1 tab TWICE A DAY ORAL 09/29/17 18:00 10/29/17 17:59 10/01/17 08:26 JL CHAVEZ Oct 01, 2017 10:49
[2017-10-01 11:43] VITALS: BP 102/67
[2017-10-01] MEDS: Ampicillin/Sulbactam Sod 3 GM in NS 110 ML IVPB SCH ×2 (12:20→18:25)
--- NOTE | 2017-10-01 12:27 | General Surgery Progress Note ---
General Surgery-Progress Note Subjective Symptoms: improved, BM Objective Last 24 Hour Vital Signs Date Time Temp Pulse Resp B/P (MAP) Pulse Ox O2 Delivery O2 Flow Rate FiO2 10/01/17 11:43 98.2 102 20 102/67 97 10/01/17 10:48 98.6 10/01/17 08:24 98.6 92 19 99/61 98 10/01/17 04:00 97.4 105 19 114/66 99 10/01/17 00:00 97.5 93 19 106/78 100 09/30/17 20:00 97.8 93 19 132/88 100 09/30/17 16:40 97.9 97 20 117/78 99 09/30/17 12:53 97.3 89 20 112/70 98 I&O Intake and Output 09/30/17 10/01/17 19:00 07:00 Intake Total 275 ml 800 ml Output Total 616 ml Balance -341 ml 800 ml IV Total 275 ml 800 ml Output Urine Total 600 ml Drainage Total 16 ml # Voids 2 2 Wound: other - packing Drains: james Respiratory: clear Abdomen: soft, flat, non-tender, present bowel sounds Laboratory Tests Test 10/01/17 06:20 White Blood Count 17.5 K/UL (4.8-10.8) H Red Blood Count 4.27 M/UL (4.20-5.40) Hemoglobin 12.3 G/DL (12.0-16.0) Hematocrit 38.0 % (37.0-47.0) Mean Corpuscular Volume 89 FL (80-99) Mean Corpuscular Hemoglobin 28.7 PG (27.0-31.0) Mean Corpuscular Hemoglobin Concent 32.3 G/DL (32.0-36.0) Red Cell Distribution Width 15.8 % (11.6-14.8) H Platelet Count 460 K/UL (150-450) H Mean Platelet Volume 5.0 FL (6.5-10.1) L Neutrophils (%) (Auto) % (45.0-75.0) Lymphocytes (%) (Auto) % (20.0-45.0) Monocytes (%) (Auto) % (1.0-10.0) Eosinophils (%) (Auto) % (0.0-3.0) Basophils (%) (Auto) % (0.0-2.0) Differential Total Cells Counted 100 Neutrophils % (Manual) 95 % (45-75) H Lymphocytes % (Manual) 4 % (20-45) L Monocytes % (Manual) 1 % (1-10) Eosinophils % (Manual) 0 % (0-3) Basophils % (Manual) 0 % (0-2) Band Neutrophils 0 % (0-8) Platelet Estimate Adequate Platelet Morphology Normal Hypochromasia 1+ Anisocytosis 1+ Sodium Level 132 MMOL/L (136-145) L Potassium Level 4.3 MMOL/L (3.5-5.1) Chloride Level 98 MMOL/L (98-107) Carbon Dioxide Level 27 MMOL/L (21-32) Anion Gap 7 mmol/L (5-15) Blood Urea Nitrogen 7 mg/dL (7-18) Creatinine 0.4 MG/DL (0.55-1.30) L Estimat Glomerular Filtration Rate > 60 mL/min (>60) Glucose Level 105 MG/DL (74-106) Calcium Level 8.9 MG/DL (8.5-10.1) Assessment Post-op Diagnosis perforation of cecum and recto-sigmoid Plan Additional Comments ct of DWAYNE Easley Oct 01, 2017 12:27
--- NOTE | 2017-10-01 14:25 | General Progress Note ---
Assessment/Plan Assessment/Plan (1) Intractable abdominal pain (2) Perforation of the cecum and the rectosigmoid (3) S/p Exploratory laparotomy and lysis of the adhesion (4) Partial right hemicolectomy with primary anastomosis (5) Resection of the rectosigmoid with Katerina pouch and colostomy (6) Cervical cancer Pt to be continued on Dilaudid We will start pt on Neurontin 100mg PO 1 tab TID D/w Dr. Ochoa and he concurred. Subjective Date patient seen: Oct 01, 2017 Time patient seen: 01:00 - pm Allergies: Coded Allergies: No Known Allergies (Unverified , 09/10/17) Subjective REVIEW OF SYSTEMS: Denies rash, fever, chills, sweating, dizziness, drowsiness, blurred vision, sore throat, or change in her weight. Denies change in hearing, however, does report a weight loss of 35 pounds since May. No bowel or bladder incontinence at this time. No dysuria. She is complaining of severe abdominal pain. SUBJECTIVE: Patient is in bed with family at bed side. She continues to c/o severe pain which is tolerated on the Dilaudid. I d/w her about adding Neurontin and she understands. Objective Last 24 Hour Vital Signs Date Time Temp Pulse Resp B/P (MAP) Pulse Ox O2 Delivery O2 Flow Rate FiO2 10/01/17 12:49 98.2 10/01/17 11:43 98.2 102 20 102/67 97 10/01/17 08:24 98.6 92 19 99/61 98 10/01/17 04:00 97.4 105 19 114/66 99 10/01/17 00:00 97.5 93 19 106/78 100 09/30/17 20:00 97.8 93 19 132/88 100 09/30/17 16:40 97.9 97 20 117/78 99 Intake and Output 09/30/17 10/01/17 19:00 07:00 Intake Total 275 ml 800 ml Output Total 616 ml Balance -341 ml 800 ml IV Total 275 ml 800 ml Output Urine Total 600 ml Drainage Total 16 ml # Voids 2 2 Laboratory Tests 10/01/17 06:20: White Blood Count 17.5H, Red Blood Count 4.27, Hemoglobin 12.3, Hematocrit 38.0 , Mean Corpuscular Volume 89, Mean Corpuscular Hemoglobin 28.7, Mean Corpuscular Hemoglobin Concent 32.3, Red Cell Distribution Width 15.8H, Platelet Count 460H, Mean Platelet Volume 5.0L, Neutrophils (%) (Auto) , Lymphocytes (%) (Auto) , Monocytes (%) (Auto) , Eosinophils (%) (Auto) , Basophils (%) (Auto) , Differential Total Cells Counted 100, Neutrophils % ( Manual) 95H, Lymphocytes % (Manual) 4L, Monocytes % (Manual) 1, Eosinophils % ( Manual) 0, Basophils % (Manual) 0, Band Neutrophils 0, Platelet Estimate Adequate, Platelet Morphology Normal, Hypochromasia 1+, Anisocytosis 1+, Sodium Level 132L, Potassium Level 4.3, Chloride Level 98, Carbon Dioxide Level 27, Anion Gap 7, Blood Urea Nitrogen 7, Creatinine 0.4L, Estimat Glomerular Filtration Rate > 60, Glucose Level 105, Calcium Level 8.9 Height (Feet): 5 Height (Inches): 3.00 Weight (Pounds): 72 Objective GENERAL: Alert, awake, and oriented. HEENT: PERRLA. NECK: Range of motion is full in all directions. No tenderness to paracervical muscles. No adenopathy. LUNGS: Decreased breath sounds bilaterally. ABDOMEN: Surgical wounds with bandages applied. Colostomy bag noted with tenderness to palpation. BACK: Range of motion is decreased in flexion and extension. EXTREMITIES: No cyanosis and no clubbing. NEUROLOGIC: Generalized weakness noted. ROSA MARIA MELGAR Oct 01, 2017 14:25
[2017-10-01 15:51] VITALS: BP 102/65
--- NOTE | 2017-10-01 16:31 | General Progress Note ---
Assessment/Plan Assessment/Plan Assessment/Plan Problems: (1) Perforation of cecum ICD Codes: K63.1 - Perforation of intestine (nontraumatic) SNOMED: 833232505 (2) Perforated sigmoid colon ICD Codes: K63.1 - Perforation of intestine (nontraumatic) SNOMED: 935993975 (3) Intra-abdominal free air of unknown etiology ICD Codes: K66.8 - Other specified disorders of peritoneum SNOMED: 76719458 (4) Abdominal pain ICD Codes: R10.9 - Unspecified abdominal pain SNOMED: 34139436 Qualifiers: Qualified Codes: R10.13 - Epigastric pain (5) GI bleed ICD Codes: K92.2 - Gastrointestinal hemorrhage, unspecified SNOMED: 05184612 Qualifiers: Qualified Codes: K92.2 - Gastrointestinal hemorrhage, unspecified (6) Anemia ICD Codes: D64.9 - Anemia, unspecified SNOMED: 110147195 Assessment/Plan post op care fu surgical recs Agree with CT scan given elevated WBC TPN PT evaluation pain control fu labs Subjective Allergies: Coded Allergies: No Known Allergies (Unverified , 09/10/17) Subjective Above noted no new complaints on TPN poor po elevated WBC noted Objective Last 24 Hour Vital Signs Date Time Temp Pulse Resp B/P (MAP) Pulse Ox O2 Delivery O2 Flow Rate FiO2 10/01/17 15:51 97.9 107 20 102/65 98 10/01/17 14:50 97.9 10/01/17 11:43 98.2 102 20 102/67 97 10/01/17 08:24 98.6 92 19 99/61 98 10/01/17 04:00 97.4 105 19 114/66 99 10/01/17 00:00 97.5 93 19 106/78 100 09/30/17 20:00 97.8 93 19 132/88 100 09/30/17 16:40 97.9 97 20 117/78 99 Intake and Output 09/30/17 10/01/17 19:00 07:00 Intake Total 275 ml 800 ml Output Total 616 ml Balance -341 ml 800 ml IV Total 275 ml 800 ml Output Urine Total 600 ml Drainage Total 16 ml # Voids 2 2 Laboratory Tests 10/01/17 06:20: White Blood Count 17.5H, Red Blood Count 4.27, Hemoglobin 12.3, Hematocrit 38.0 , Mean Corpuscular Volume 89, Mean Corpuscular Hemoglobin 28.7, Mean Corpuscular Hemoglobin Concent 32.3, Red Cell Distribution Width 15.8H, Platelet Count 460H, Mean Platelet Volume 5.0L, Neutrophils (%) (Auto) , Lymphocytes (%) (Auto) , Monocytes (%) (Auto) , Eosinophils (%) (Auto) , Basophils (%) (Auto) , Differential Total Cells Counted 100, Neutrophils % ( Manual) 95H, Lymphocytes % (Manual) 4L, Monocytes % (Manual) 1, Eosinophils % ( Manual) 0, Basophils % (Manual) 0, Band Neutrophils 0, Platelet Estimate Adequate, Platelet Morphology Normal, Hypochromasia 1+, Anisocytosis 1+, Sodium Level 132L, Potassium Level 4.3, Chloride Level 98, Carbon Dioxide Level 27, Anion Gap 7, Blood Urea Nitrogen 7, Creatinine 0.4L, Estimat Glomerular Filtration Rate > 60, Glucose Level 105, Calcium Level 8.9 Height (Feet): 5 Height (Inches): 3.00 Weight (Pounds): 72 Objective Thin AA woman NCAT supple CTA RR Soft ND, (+) LLQ ostomy, (+) wound, (+) two (R) sided drains no edema nonfocal REYNA SOLIS Oct 01, 2017 16:31
--- NOTE | 2017-10-01 18:46 | Nephrology Progress Note ---
Assessment/Plan Assessment 1. Acute renal failure 2. Hyponatremia worse 3. Malnutrition. 4. hyperkalemia. 5. Dehydration. 6. History of cervical cancer. Plan plan adjust TPN mix all ivpb with ns .9 monitoring renal function avoid NSAID replace electrolyte as need it Subjective Subjective alert and awake no complaints Objective Objective Last 24 Hour Vital Signs Date Time Temp Pulse Resp B/P (MAP) Pulse Ox O2 Delivery O2 Flow Rate FiO2 10/01/17 16:52 97.9 10/01/17 15:51 97.9 107 20 102/65 98 10/01/17 11:43 98.2 102 20 102/67 97 10/01/17 08:24 98.6 92 19 99/61 98 10/01/17 04:00 97.4 105 19 114/66 99 10/01/17 00:00 97.5 93 19 106/78 100 09/30/17 20:00 97.8 93 19 132/88 100 Intake and Output 09/30/17 10/01/17 19:00 07:00 Intake Total 275 ml 800 ml Output Total 616 ml Balance -341 ml 800 ml IV Total 275 ml 800 ml Output Urine Total 600 ml Drainage Total 16 ml # Voids 2 2 Laboratory Tests 10/01/17 06:20: White Blood Count 17.5H, Red Blood Count 4.27, Hemoglobin 12.3, Hematocrit 38.0 , Mean Corpuscular Volume 89, Mean Corpuscular Hemoglobin 28.7, Mean Corpuscular Hemoglobin Concent 32.3, Red Cell Distribution Width 15.8H, Platelet Count 460H, Mean Platelet Volume 5.0L, Neutrophils (%) (Auto) , Lymphocytes (%) (Auto) , Monocytes (%) (Auto) , Eosinophils (%) (Auto) , Basophils (%) (Auto) , Differential Total Cells Counted 100, Neutrophils % ( Manual) 95H, Lymphocytes % (Manual) 4L, Monocytes % (Manual) 1, Eosinophils % ( Manual) 0, Basophils % (Manual) 0, Band Neutrophils 0, Platelet Estimate Adequate, Platelet Morphology Normal, Hypochromasia 1+, Anisocytosis 1+, Sodium Level 132L, Potassium Level 4.3, Chloride Level 98, Carbon Dioxide Level 27, Anion Gap 7, Blood Urea Nitrogen 7, Creatinine 0.4L, Estimat Glomerular Filtration Rate > 60, Glucose Level 105, Calcium Level 8.9 Height (Feet): 5 Height (Inches): 3.00 Weight (Pounds): 72 Objective HEAD AND NECK: No JVP. No LAD. No thyromegaly. Extraocular movement intact. Pupils are reactive to light and accommodation. LUNGS: Decreased breathing sounds. CARDIAC: Regular rate and rhythm. S1 and S2. No murmur. No rub. ABDOMEN: Distended. Bowel sounds are positive. Diffuse tenderness. No guarding. No rebound. EXTREMITIES: A 1+ to 2+ edema. No clubbing. No cyanosis. NEUROLOGIC: Cranial nerves II through XII within normal limits. Upper and lower extremities are grossly intact. LORRAINE GROVER Oct 01, 2017 18:46
[2017-10-01 20:00] VITALS: BP 102/68
[2017-10-01] MEDS: TPN IV SCH (20:21)
[2017-10-01] MEDS: FAT EMULSION 20% IV SCH (20:21)
[2017-10-01] MEDS: Dyna-Hex 2% Top Sol 2oz TOPIC SCH (20:21)
[2017-10-01] MEDS ORDERED: Betadine 4oz Bottle TOPIC ONE (21:00)
--- NOTE | 2017-10-01 21:16 | General Progress Note ---
Assessment/Plan Status: unchanged Assessment/Plan # Leukocytosis is likely reactive from Acute abdominal pain 2 to perforation with perforated cecum and rectosigmoid s/p exp laparotomy with partial R hemicolectomy --> worsened from yesterday, --> continue to closely monitor. # Cervical Ca s/p surgery and radiation, has not received any chemotherapy recently # Thrombocytosis is likely related to chronic reactive process --> worsened from yesterday, cont monitor closely # Anemia of chronic disease --> w/u has been reviewed --> Blood transfusion not required unless symptomatic or hgb <7 --> Has not required blood # Anemia of GI bleeding --> GI followup. # Severe protein calorie malnutrition Subjective Date patient seen: Oct 01, 2017 Constitutional: Denies: no symptoms, chills, diaphoresis, fever, malaise, weakness, other HEENT: Denies: no symptoms, eye pain, blurred vision, tearing, double vision, ear pain, ear discharge, nose pain, nose congestion, throat pain, throat swelling, mouth pain, mouth swelling, other Cardiovascular: Denies: no symptoms, chest pain, edema, irregular heart rate, lightheadedness, palpitations, syncope, other Respiratory: Denies: no symptoms, cough, orthopnea, shortness of breath, SOB with excertion, SOB at rest, sputum, stridor, wheezing, other Gastrointestinal/Abdominal: Denies: no symptoms, abdomen distended, abdominal pain, black stools, tarry stools, blood in stool, constipated, diarrhea, difficulty swallowing, nausea, poor appetite, poor fluid intake, rectal bleeding , vomiting, other Hematologic/Lymphatic: Reports: anemia, other - leukocytosis Allergies: Coded Allergies: No Known Allergies (Unverified , 09/10/17) Subjective Remains lethargic. Leukocytosis worsened. On TPN. Objective Last 24 Hour Vital Signs Date Time Temp Pulse Resp B/P (MAP) Pulse Ox O2 Delivery O2 Flow Rate FiO2 10/01/17 20:00 98.2 94 19 102/68 100 10/01/17 18:55 97.9 10/01/17 15:51 97.9 107 20 102/65 98 10/01/17 11:43 98.2 102 20 102/67 97 10/01/17 08:24 98.6 92 19 99/61 98 10/01/17 04:00 97.4 105 19 114/66 99 10/01/17 00:00 97.5 93 19 106/78 100 Intake and Output 09/30/17 10/01/17 19:00 07:00 Intake Total 275 ml 800 ml Output Total 616 ml Balance -341 ml 800 ml IV Total 275 ml 800 ml Output Urine Total 600 ml Drainage Total 16 ml # Voids 2 2 Laboratory Tests 10/01/17 06:20: White Blood Count 17.5H, Red Blood Count 4.27, Hemoglobin 12.3, Hematocrit 38.0 , Mean Corpuscular Volume 89, Mean Corpuscular Hemoglobin 28.7, Mean Corpuscular Hemoglobin Concent 32.3, Red Cell Distribution Width 15.8H, Platelet Count 460H, Mean Platelet Volume 5.0L, Neutrophils (%) (Auto) , Lymphocytes (%) (Auto) , Monocytes (%) (Auto) , Eosinophils (%) (Auto) , Basophils (%) (Auto) , Differential Total Cells Counted 100, Neutrophils % ( Manual) 95H, Lymphocytes % (Manual) 4L, Monocytes % (Manual) 1, Eosinophils % ( Manual) 0, Basophils % (Manual) 0, Band Neutrophils 0, Platelet Estimate Adequate, Platelet Morphology Normal, Hypochromasia 1+, Anisocytosis 1+, Sodium Level 132L, Potassium Level 4.3, Chloride Level 98, Carbon Dioxide Level 27, Anion Gap 7, Blood Urea Nitrogen 7, Creatinine 0.4L, Estimat Glomerular Filtration Rate > 60, Glucose Level 105, Calcium Level 8.9 Height (Feet): 5 Height (Inches): 3.00 Weight (Pounds): 72 Chris Spencer Oct 01, 2017 21:16
[2017-10-02] VITALS: BP 112/74
[2017-10-02] MEDS: Ampicillin/Sulbactam Sod 3 GM in NS 110 ML IVPB SCH ×4 (00:20→18:35)
[2017-10-02] MEDS: Insulin NovoLOG Flexpen S/S (insulin sensitive) SUBQ SCH ×4 (00:21→18:00)
[2017-10-02 04:00] VITALS: BP 108/72
[2017-10-02 08:00] VITALS: BP 136/79
[2017-10-02 08:17] LABS: HEMATOCRIT 35.9 % (37.0-47.0); HEMOGLOBIN 11.7 G/DL (12.0-16.0); MEAN CORPUSCULAR VOLUME 89 FL (80-99); PLATELET COUNT 327 K/UL (150-450); RED BLOOD COUNT 4.04 M/UL (4.20-5.40); RED CELL DISTRIBUTION WIDTH 16.6 % (11.6-14.8); WHITE BLOOD COUNT 17.9 K/UL (4.8-10.8)
[2017-10-02 08:54] LABS: ALANINE AMINOTRANSFERASE 37 U/L (12-78); ALBUMIN 1.7 G/DL (3.4-5.0); ALBUMIN/GLOBULIN RATIO 0.3 (1.0-2.7); ALKALINE PHOSPHATASE 223 U/L (46-116); ANION GAP 8 mmol/L (5-15); ASPARTATE AMINO TRANSFERASE 30 U/L (15-37); BILIRUBIN,DIRECT 0.6 MG/DL (0.0-0.3); BILIRUBIN,TOTAL 1.5 MG/DL (0.2-1.0); BLOOD UREA NITROGEN 8 mg/dL (7-18); CALCIUM 9.3 MG/DL (8.5-10.1); CARBON DIOXIDE 28 MMOL/L (21-32); CHLORIDE 97 MMOL/L (98-107); CREATININE 0.4 MG/DL (0.55-1.30); POTASSIUM 4.8 MMOL/L (3.5-5.1); SODIUM 133 MMOL/L (136-145)
--- NOTE | 2017-10-02 10:10 | GI Progress Note ---
Assessment/Plan Problems: (1) Perforation of cecum ICD Codes: K63.1 - Perforation of intestine (nontraumatic) SNOMED: 673667001 (2) Perforated sigmoid colon ICD Codes: K63.1 - Perforation of intestine (nontraumatic) SNOMED: 827578898 (3) Intra-abdominal free air of unknown etiology ICD Codes: K66.8 - Other specified disorders of peritoneum SNOMED: 04458968 (4) Abdominal pain ICD Codes: R10.9 - Unspecified abdominal pain SNOMED: 42879411 Qualifiers: Qualified Codes: R10.13 - Epigastric pain (5) GI bleed ICD Codes: K92.2 - Gastrointestinal hemorrhage, unspecified SNOMED: 77658049 Qualifiers: Qualified Codes: K92.2 - Gastrointestinal hemorrhage, unspecified (6) Anemia ICD Codes: D64.9 - Anemia, unspecified SNOMED: 255949749 Qualifiers: Qualified Codes: D64.9 - Anemia, unspecified Status: stable Status Narrative Discussed with Dr. Jordan. Assessment/Plan post op care fu surgical recs TPN PT evaluation pain control fu labs Subjective Subjective hungry generalized weakness feels better Objective Last 24 Hour Vital Signs Date Time Temp Pulse Resp B/P (MAP) Pulse Ox O2 Delivery O2 Flow Rate FiO2 10/02/17 08:00 98.7 84 19 136/79 99 Room Air 10/02/17 04:52 97.0 10/02/17 04:00 97.0 102 20 108/72 98 10/02/17 00:00 97.3 110 18 112/74 98 Room Air 10/01/17 20:00 98.2 94 19 102/68 100 10/01/17 15:51 97.9 107 20 102/65 98 10/01/17 11:43 98.2 102 20 102/67 97 Intake and Output 10/01/17 10/02/17 19:00 07:00 Intake Total 530 ml 715 ml Output Total 460 ml 208 ml Balance 70 ml 507 ml Intake Oral 420 ml IV Total 110 ml 715 ml Output Urine Total 400 ml 200 ml Stool Total 50 ml Drainage Total 10 ml 8 ml # Voids 2 2 # Bowel Movements 2 Laboratory Tests Test 10/02/17 07:05 White Blood Count 17.9 K/UL (4.8-10.8) H Red Blood Count 4.04 M/UL (4.20-5.40) L Hemoglobin 11.7 G/DL (12.0-16.0) L Hematocrit 35.9 % (37.0-47.0) L Mean Corpuscular Volume 89 FL (80-99) Mean Corpuscular Hemoglobin 29.0 PG (27.0-31.0) Mean Corpuscular Hemoglobin Concent 32.7 G/DL (32.0-36.0) Red Cell Distribution Width 16.6 % (11.6-14.8) H Platelet Count 327 K/UL (150-450) Mean Platelet Volume 6.8 FL (6.5-10.1) Neutrophils (%) (Auto) % (45.0-75.0) Lymphocytes (%) (Auto) % (20.0-45.0) Monocytes (%) (Auto) % (1.0-10.0) Eosinophils (%) (Auto) % (0.0-3.0) Basophils (%) (Auto) % (0.0-2.0) Neutrophils % (Manual) Pending Lymphocytes % (Manual) Pending Platelet Estimate Pending Platelet Morphology Pending Sodium Level 133 MMOL/L (136-145) L Potassium Level 4.8 MMOL/L (3.5-5.1) Chloride Level 97 MMOL/L (98-107) L Carbon Dioxide Level 28 MMOL/L (21-32) Anion Gap 8 mmol/L (5-15) Blood Urea Nitrogen 8 mg/dL (7-18) Creatinine 0.4 MG/DL (0.55-1.30) L Estimat Glomerular Filtration Rate > 60 mL/min (>60) Glucose Level 105 MG/DL (74-106) Calcium Level 9.3 MG/DL (8.5-10.1) Total Bilirubin 1.5 MG/DL (0.2-1.0) H Direct Bilirubin 0.6 MG/DL (0.0-0.3) H Aspartate Amino Transf (AST/SGOT) 30 U/L (15-37) Alanine Aminotransferase (ALT/SGPT) 37 U/L (12-78) Alkaline Phosphatase 223 U/L (46-116) H Total Protein 7.3 G/DL (6.4-8.2) Albumin 1.7 G/DL (3.4-5.0) L Globulin 5.6 g/dL Albumin/Globulin Ratio 0.3 (1.0-2.7) L Height (Feet): 5 Height (Inches): 3.00 Weight (Pounds): 72 General Appearance: WD/WN, no apparent distress, alert, thin Cardiovascular: normal rate Respiratory/Chest: normal breath sounds, no respiratory distress Abdominal Exam: normal bowel sounds, non tender, soft, other - colostomy Extremities: normal range of motion - generalized weakness, non-tender Cece Gerard N.P. Oct 02, 2017 10:10
[2017-10-02] MEDS: Docusate Sod/Senna tab ORAL SCH ×2 (10:21→18:34)
[2017-10-02] MEDS: Pantoprazole Inj IVP SCH (10:21)
[2017-10-02] MEDS: Heparin 5000 units/ml inj SUBQ SCH ×2 (10:35→20:49)
--- NOTE | 2017-10-02 11:02 | Diagnostic Imaging Report ---
Clinical Indication: Abdominal pain history of surgery for cecal perforation Technique: Patient ingested enteric contrast. IV administration nonionic contrast. Venous phase spiral acquisition obtained through the abdomen and pelvis. Multiplanar reconstructions were generated. Total dose length product 387.08 mGycm. CTDIvol(s) 8.49 mGy. Dose reduction achieved using automated exposure control Comparison: 09/22/2017 Findings: Paucity of body fat limits inherent soft tissue resolution. There is evidence of interim surgery. A surgical drain enters via the right lower quadrant, tip in the pelvis just to the left of midline. A second surgical drain enters right upper quadrant, shaft projected anterior to the hepatic flexure the colon, tip over the dome of the liver. There is a surgical staple line in the proximal ascending colon, with evidence of ileocolic anastomosis. There is a descending colostomy. There is a surgical staple line in the pelvis indicating a Katerina procedure. Considerable stool is seen within the colon. Previous rectal distention with feces is no longer evident. There is edema of the pelvic fat. There may be a small amount of free pelvic fluid deep in the pelvis. A small collection of fluid is seen measuring 2.9 x 2.7 x 1.4 cm anterolateral to the bladder in the upper pelvis. A few bubbles of free intraperitoneal are are seen in the upper pelvis anterior to the bladder, some associated with a tiny sliver of fluid which measures 12 x 2 mm. A small gas collection is seen in the anterior abdominal wall to the left of midline in the upper pelvis. A collection of fluid with a gas bubble is seen immediately anterior to the sacrum. This measures 5 cm transverse by 2.2 cm AP by 3.5 cm craniocaudad. This demonstrates some rim enhancement which is best appreciated on the sagittal reconstructed images. Due to the presence of considerable unopacified fluid-filled small bowel within the pelvis, other small fluid or gas collections cannot be confidently excluded. Contrast distends the stomach. Filling defects within the stomach presumably represent retained ingested material. Contrast has traversed only a small distance into the small bowel. Small bowel loops are dilated proximally, diffusely mildly dilated more distally, without evidence of transition point. Small bowel loops are gas and fluid-filled and demonstrates somewhat prominent mural enhancement. There is a midline open surgical wound. There is edema of the retrosacral and rectococcygeal fat. There is diffuse edema of the mesenteric, pelvic, and subcutaneous fat. The bladder is distended. It contains gas. The right kidney demonstrates a wedge-shaped area of low attenuation in the interpolar region peripherally. Subcentimeter low-attenuation lesions are seen in both kidneys. No hydronephrosis. The liver, gallbladder, bile ducts, pancreas, spleen, adrenals are unremarkable. No retroperitoneal or mesenteric mass or adenopathy demonstrated. No pelvic mass or adenopathy. Uterus is not definitely visualized. The included lung bases demonstrate some atelectasis or scarring on the left. This is new since the prior study. The bones are unremarkable Impression: Postsurgical changes, as described, including evidence of resection of the cecum and terminal ileum, ascending ileocolic anastomosis, descending colostomy, resection of the sigmoid and Katerina procedure. Surgical drains as described Multiple small fluid and gas collections in the pelvis, as described. While quite likely representing routine postsurgical collections, the possibility of abscess as etiology of any of these cannot b ul ou Mildly distended fluid-filled small bowel. Most likely represents postoperative ileus Distended bladder. Air within the bladder most likely related to prior instrumentation. However, the possibility of emphysematous cystitis or enterovesical fistula should be considered Wedge-shaped area of low-attenuation in the right kidney, not evident previously, likely and area of focal nephritis. Correlate with clinical findings Subcentimeter low-attenuation renal lesions, too small to characterize, most likely benign simple cysts. No further follow-up necessary Nonvisualization of uterus, likely surgically absent Minimal left basilar pulmonary parenchymal atelectasis The CT scanner at [facility] is accredited by the [employer] and the scans are performed using protocols designed to limit radiation exposure to as low as reasonably achievable to attain images of sufficient resolution adequate for diagnostic evaluation.
[2017-10-02 12:00] VITALS: BP 106/68
--- NOTE | 2017-10-02 13:12 | Infectious Diseases Prog Note ---
Assessment/Plan Assessment/Plan A; Perforated bowel Peritonitis with E. coli, Enterococcus, C. albicans & Prevotella Cervical cancer P: continue Unasyn & Fluconazole Subjective ROS Limited/Unobtainable: No Constitutional: Reports: anorexia Respiratory: Reports: no symptoms Gastrointestinal/Abdominal: Reports: bloating Genitourinary: Reports: no symptoms Allergies: Coded Allergies: No Known Allergies (Unverified , 09/10/17) Objective Vital Signs Last 24 Hour Vital Signs Date Time Temp Pulse Resp B/P (MAP) Pulse Ox O2 Delivery O2 Flow Rate FiO2 10/02/17 08:51 98.7 10/02/17 08:00 98.7 84 19 136/79 99 Room Air 10/02/17 04:00 97.0 102 20 108/72 98 10/02/17 00:00 97.3 110 18 112/74 98 Room Air 10/01/17 20:00 98.2 94 19 102/68 100 10/01/17 15:51 97.9 107 20 102/65 98 Height (Feet): 5 Height (Inches): 3.00 Weight (Pounds): 72 General Appearance: cachetic HEENT: mucous membranes moist Respiratory/Chest: lungs clear Cardiovascular: normal rate, other - RIJ central line Abdomen: soft, non tender, other - s/p osteotomy Extremities: no edema Neurologic/Psychiatric: alert, oriented x 3, responsive Laboratory Tests Test 10/02/17 07:05 White Blood Count 17.9 K/UL (4.8-10.8) H Red Blood Count 4.04 M/UL (4.20-5.40) L Hemoglobin 11.7 G/DL (12.0-16.0) L Hematocrit 35.9 % (37.0-47.0) L Mean Corpuscular Volume 89 FL (80-99) Mean Corpuscular Hemoglobin 29.0 PG (27.0-31.0) Mean Corpuscular Hemoglobin Concent 32.7 G/DL (32.0-36.0) Red Cell Distribution Width 16.6 % (11.6-14.8) H Platelet Count 327 K/UL (150-450) Mean Platelet Volume 6.8 FL (6.5-10.1) Neutrophils (%) (Auto) % (45.0-75.0) Lymphocytes (%) (Auto) % (20.0-45.0) Monocytes (%) (Auto) % (1.0-10.0) Eosinophils (%) (Auto) % (0.0-3.0) Basophils (%) (Auto) % (0.0-2.0) Differential Total Cells Counted 100 Neutrophils % (Manual) 94 % (45-75) H Lymphocytes % (Manual) 2 % (20-45) L Monocytes % (Manual) 3 % (1-10) Eosinophils % (Manual) 1 % (0-3) Basophils % (Manual) 0 % (0-2) Band Neutrophils 0 % (0-8) Platelet Estimate Adequate Platelet Morphology Normal Red Blood Cell Morphology Normal Sodium Level 133 MMOL/L (136-145) L Potassium Level 4.8 MMOL/L (3.5-5.1) Chloride Level 97 MMOL/L (98-107) L Carbon Dioxide Level 28 MMOL/L (21-32) Anion Gap 8 mmol/L (5-15) Blood Urea Nitrogen 8 mg/dL (7-18) Creatinine 0.4 MG/DL (0.55-1.30) L Estimat Glomerular Filtration Rate > 60 mL/min (>60) Glucose Level 105 MG/DL (74-106) Calcium Level 9.3 MG/DL (8.5-10.1) Total Bilirubin 1.5 MG/DL (0.2-1.0) H Direct Bilirubin 0.6 MG/DL (0.0-0.3) H Aspartate Amino Transf (AST/SGOT) 30 U/L (15-37) Alanine Aminotransferase (ALT/SGPT) 37 U/L (12-78) Alkaline Phosphatase 223 U/L (46-116) H Total Protein 7.3 G/DL (6.4-8.2) Albumin 1.7 G/DL (3.4-5.0) L Globulin 5.6 g/dL Albumin/Globulin Ratio 0.3 (1.0-2.7) L Current Medications Medications (Trade) Dose Ordered Sig/Francoise Route PRN Reason Start Time Stop Time Status Last Admin Dose Admin Acetaminophen (Tylenol) 650 mg Q4H PRN RECTAL FEVER 09/25/17 16:30 10/22/17 16:29 Ampicillin Sodium/ Sulbactam Sodium 3 gm/Sodium Chloride 110 ml @ 220 mls/hr Q6HR IVPB 10/01/17 12:00 10/08/17 11:59 10/02/17 06:20 Chlorhexidine Gluconate (Kenia-Hex 2%) 1 applic DAILY@2000 TOPIC 09/25/17 20:00 10/24/17 19:59 10/01/17 20:21 Dextrose (Dextrose 50%) No Dose PRN IV hypoglycemia 09/28/17 00:00 10/28/17 00:00 Fat Emulsion Intravenous 168 ml/Amino Acids/ Electrolytes/ Dextrose 1,320 ml @ 55 mls/hr Q24H IV 09/28/17 20:00 10/28/17 19:59 10/01/17 20:21 Fluconazole/ Sodium Chloride 100 ml @ 100 mls/hr Q24H IV 09/27/17 18:00 10/04/17 17:59 10/01/17 17:14 Gabapentin (Neurontin) 100 mg THREE TIMES A DAY ORAL 10/01/17 15:00 10/31/17 14:59 10/02/17 12:34 Heparin Sodium (Porcine) (Heparin 5000 units/ml) 5,000 units EVERY 12 HOURS SUBQ 09/25/17 21:00 10/23/17 08:59 10/02/17 10:35 Hydromorphone HCl (Dilaudid) 1 mg Q3H PRN IVP pain score 4-6 09/29/17 10:45 10/03/17 23:59 Hydromorphone HCl (Dilaudid) 3 mg Q2H PRN IVP pain score 7-10 09/29/17 10:30 10/04/17 23:59 10/02/17 12:19 Insulin Aspart (NovoLOG) No Dose Q6HR SUBQ 09/28/17 00:00 10/28/17 00:00 10/02/17 06:21 Ondansetron HCl (Zofran) 4 mg Q6H PRN IVP Nausea & Vomiting 09/25/17 16:30 10/22/17 16:29 Pantoprazole (Protonix) 40 mg DAILY IVP 09/26/17 09:00 10/23/17 08:59 10/02/17 10:21 Phytonadione (Vitamin K) 10 mg QWEEK SUBQ 09/27/17 20:00 10/27/17 19:59 09/27/17 21:36 Povidone Iodine (Betadine Annamaria) 1 applic DAILY@2100 TOPIC 10/02/17 21:00 11/01/17 20:59 Senna/Docusate Sodium (Jinny-Colace) 1 tab TWICE A DAY ORAL 09/29/17 18:00 10/29/17 17:59 10/02/17 10:21 CHERYLE WOLFE Oct 02, 2017 13:12
--- NOTE | 2017-10-02 13:22 | General Progress Note ---
Assessment/Plan Problem List: (1) Anemia ICD Codes: D64.9 - Anemia, unspecified SNOMED: 974530594 Qualifiers: Qualified Codes: D64.9 - Anemia, unspecified (2) GI bleed ICD Codes: K92.2 - Gastrointestinal hemorrhage, unspecified SNOMED: 96407890 Qualifiers: Qualified Codes: K92.2 - Gastrointestinal hemorrhage, unspecified (3) Abdominal pain ICD Codes: R10.9 - Unspecified abdominal pain SNOMED: [id number] Qualifiers: Qualified Codes: R10.13 - Epigastric pain Status: unchanged Assessment/Plan ot pt diet cbc bmp am gi f/u id eval dc plan Subjective Constitutional: Reports: weakness Allergies: Coded Allergies: No Known Allergies (Unverified , 09/10/17) All Systems: reviewed and negative except above Subjective sl nauseus Objective Last 24 Hour Vital Signs Date Time Temp Pulse Resp B/P (MAP) Pulse Ox O2 Delivery O2 Flow Rate FiO2 10/02/17 12:49 98.7 10/02/17 08:00 98.7 84 19 136/79 99 Room Air 10/02/17 04:00 97.0 102 20 108/72 98 10/02/17 00:00 97.3 110 18 112/74 98 Room Air 10/01/17 20:00 98.2 94 19 102/68 100 10/01/17 15:51 97.9 107 20 102/65 98 Intake and Output 10/01/17 10/02/17 19:00 07:00 Intake Total 530 ml 715 ml Output Total 460 ml 208 ml Balance 70 ml 507 ml Intake Oral 420 ml IV Total 110 ml 715 ml Output Urine Total 400 ml 200 ml Stool Total 50 ml Drainage Total 10 ml 8 ml # Voids 2 2 # Bowel Movements 2 Laboratory Tests 10/02/17 07:05: White Blood Count 17.9H, Red Blood Count 4.04L, Hemoglobin 11.7L, Hematocrit 35.9L, Mean Corpuscular Volume 89, Mean Corpuscular Hemoglobin 29.0, Mean Corpuscular Hemoglobin Concent 32.7, Red Cell Distribution Width 16.6H, Platelet Count 327, Mean Platelet Volume 6.8, Neutrophils (%) (Auto) , Lymphocytes (%) (Auto) , Monocytes (%) (Auto) , Eosinophils (%) (Auto) , Basophils (%) (Auto) , Differential Total Cells Counted 100, Neutrophils % ( Manual) 94H, Lymphocytes % (Manual) 2L, Monocytes % (Manual) 3, Eosinophils % ( Manual) 1, Basophils % (Manual) 0, Band Neutrophils 0, Platelet Estimate Adequate, Platelet Morphology Normal, Red Blood Cell Morphology Normal, Sodium Level 133L, Potassium Level 4.8, Chloride Level 97L, Carbon Dioxide Level 28, Anion Gap 8, Blood Urea Nitrogen 8, Creatinine 0.4L, Estimat Glomerular Filtration Rate > 60, Glucose Level 105, Calcium Level 9.3, Total Bilirubin 1.5H , Direct Bilirubin 0.6H, Aspartate Amino Transf (AST/SGOT) 30, Alanine Aminotransferase (ALT/SGPT) 37, Alkaline Phosphatase 223H, Total Protein 7.3, Albumin 1.7L, Globulin 5.6, Albumin/Globulin Ratio 0.3L Height (Feet): 5 Height (Inches): 3.00 Weight (Pounds): 72 General Appearance: lethargic EENT: normal ENT inspection Neck: normal alignment Cardiovascular: normal peripheral pulses, normal rate, regular rhythm Respiratory/Chest: chest wall non-tender, lungs clear, normal breath sounds Abdomen: normal bowel sounds, non tender, soft Extremities: normal inspection Edema: no edema noted Arm (L), no edema noted Arm (R), no edema noted Leg (L), no edema noted Leg (R), no edema noted Pedal (L), no edema noted Pedal (R), no edema noted Generalized Neurologic: motor weakness Skin: normal pigmentation, warm/dry SONIDO FELICIANO Oct 02, 2017 13:22
--- NOTE | 2017-10-02 14:19 | Nephrology Progress Note ---
Assessment/Plan Assessment 1. Acute renal failure 2. Hyponatremia worse 3. Malnutrition. 4. hyperkalemia. 5. Dehydration. 6. History of cervical cancer. Plan plan adjust TPN mix all ivpb with ns .9 monitoring renal function avoid NSAID replace electrolyte as need it Subjective Subjective alert and awake no complaints Objective Objective Last 24 Hour Vital Signs Date Time Temp Pulse Resp B/P (MAP) Pulse Ox O2 Delivery O2 Flow Rate FiO2 10/02/17 12:49 98.7 10/02/17 08:00 98.7 84 19 136/79 99 Room Air 10/02/17 04:00 97.0 102 20 108/72 98 10/02/17 00:00 97.3 110 18 112/74 98 Room Air 10/01/17 20:00 98.2 94 19 102/68 100 10/01/17 15:51 97.9 107 20 102/65 98 Intake and Output 10/01/17 10/02/17 19:00 07:00 Intake Total 530 ml 715 ml Output Total 460 ml 208 ml Balance 70 ml 507 ml Intake Oral 420 ml IV Total 110 ml 715 ml Output Urine Total 400 ml 200 ml Stool Total 50 ml Drainage Total 10 ml 8 ml # Voids 2 2 # Bowel Movements 2 Laboratory Tests 10/02/17 07:05: White Blood Count 17.9H, Red Blood Count 4.04L, Hemoglobin 11.7L, Hematocrit 35.9L, Mean Corpuscular Volume 89, Mean Corpuscular Hemoglobin 29.0, Mean Corpuscular Hemoglobin Concent 32.7, Red Cell Distribution Width 16.6H, Platelet Count 327, Mean Platelet Volume 6.8, Neutrophils (%) (Auto) , Lymphocytes (%) (Auto) , Monocytes (%) (Auto) , Eosinophils (%) (Auto) , Basophils (%) (Auto) , Differential Total Cells Counted 100, Neutrophils % ( Manual) 94H, Lymphocytes % (Manual) 2L, Monocytes % (Manual) 3, Eosinophils % ( Manual) 1, Basophils % (Manual) 0, Band Neutrophils 0, Platelet Estimate Adequate, Platelet Morphology Normal, Red Blood Cell Morphology Normal, Sodium Level 133L, Potassium Level 4.8, Chloride Level 97L, Carbon Dioxide Level 28, Anion Gap 8, Blood Urea Nitrogen 8, Creatinine 0.4L, Estimat Glomerular Filtration Rate > 60, Glucose Level 105, Calcium Level 9.3, Total Bilirubin 1.5H , Direct Bilirubin 0.6H, Aspartate Amino Transf (AST/SGOT) 30, Alanine Aminotransferase (ALT/SGPT) 37, Alkaline Phosphatase 223H, Total Protein 7.3, Albumin 1.7L, Globulin 5.6, Albumin/Globulin Ratio 0.3L Height (Feet): 5 Height (Inches): 3.00 Weight (Pounds): 72 Objective HEAD AND NECK: No JVP. No LAD. No thyromegaly. Extraocular movement intact. Pupils are reactive to light and accommodation. LUNGS: Decreased breathing sounds. CARDIAC: Regular rate and rhythm. S1 and S2. No murmur. No rub. ABDOMEN: Distended. Bowel sounds are positive. Diffuse tenderness. No guarding. No rebound. EXTREMITIES: A 1+ to 2+ edema. No clubbing. No cyanosis. NEUROLOGIC: Cranial nerves II through XII within normal limits. Upper and lower extremities are grossly intact. LORRAINE GROVER Oct 02, 2017 14:19
--- NOTE | 2017-10-02 15:21 | Pulmonology Progress Note ---
Assessment/Plan Problems: (1) Intra-abdominal free air of unknown etiology (2) Perforated sigmoid colon (3) Sepsis Assessment/Plan no new complains all reviewed pain management check electroltyes. advance feeding as tolerated, tolerating well Subjective ROS Limited/Unobtainable: No Constitutional: Reports: no symptoms HEENT: Repors: no symptoms Respiratory: Reports: no symptoms Allergies: Coded Allergies: No Known Allergies (Unverified , 09/10/17) Objective Last 24 Hour Vital Signs Date Time Temp Pulse Resp B/P (MAP) Pulse Ox O2 Delivery O2 Flow Rate FiO2 10/02/17 12:49 98.7 10/02/17 12:00 97.6 99 18 106/68 99 10/02/17 08:00 98.7 84 19 136/79 99 Room Air 10/02/17 04:00 97.0 102 20 108/72 98 10/02/17 00:00 97.3 110 18 112/74 98 Room Air 10/01/17 20:00 98.2 94 19 102/68 100 10/01/17 15:51 97.9 107 20 102/65 98 Intake and Output 10/01/17 10/02/17 18:59 06:59 Intake Total 530 ml 715 ml Output Total 460 ml 208 ml Balance 70 ml 507 ml Intake Oral 420 ml IV Total 110 ml 715 ml Output Urine Total 400 ml 200 ml Stool Total 50 ml Drainage Total 10 ml 8 ml # Voids 2 2 # Bowel Movements 2 Objective General Appearance: WD/WN, no apparent distress, ON tpn, NGtube in place HEENT: normocephalic, atraumatic Neck: non-tender, normal alignment Respiratory/Chest: chest wall non-tender, lungs clear Breasts: no masses Cardiovascular/Chest: normal rate Abdomen: normal bowel sounds, no organomegaly Genitourinary/Rectal: normal genital exam Extremities: normal range of motion Laboratory Tests 10/02/17 07:05: White Blood Count 17.9H, Red Blood Count 4.04L, Hemoglobin 11.7L, Hematocrit 35.9L, Mean Corpuscular Volume 89, Mean Corpuscular Hemoglobin 29.0, Mean Corpuscular Hemoglobin Concent 32.7, Red Cell Distribution Width 16.6H, Platelet Count 327, Mean Platelet Volume 6.8, Neutrophils (%) (Auto) , Lymphocytes (%) (Auto) , Monocytes (%) (Auto) , Eosinophils (%) (Auto) , Basophils (%) (Auto) , Differential Total Cells Counted 100, Neutrophils % ( Manual) 94H, Lymphocytes % (Manual) 2L, Monocytes % (Manual) 3, Eosinophils % ( Manual) 1, Basophils % (Manual) 0, Band Neutrophils 0, Platelet Estimate Adequate, Platelet Morphology Normal, Red Blood Cell Morphology Normal, Sodium Level 133L, Potassium Level 4.8, Chloride Level 97L, Carbon Dioxide Level 28, Anion Gap 8, Blood Urea Nitrogen 8, Creatinine 0.4L, Estimat Glomerular Filtration Rate > 60, Glucose Level 105, Calcium Level 9.3, Total Bilirubin 1.5H , Direct Bilirubin 0.6H, Aspartate Amino Transf (AST/SGOT) 30, Alanine Aminotransferase (ALT/SGPT) 37, Alkaline Phosphatase 223H, Total Protein 7.3, Albumin 1.7L, Globulin 5.6, Albumin/Globulin Ratio 0.3L Current Medications Medications (Trade) Dose Ordered Sig/Francoise Route PRN Reason Start Time Stop Time Status Last Admin Dose Admin Acetaminophen (Tylenol) 650 mg Q4H PRN RECTAL FEVER 09/25/17 16:30 10/22/17 16:29 Ampicillin Sodium/ Sulbactam Sodium 3 gm/Sodium Chloride 110 ml @ 220 mls/hr Q6HR IVPB 10/01/17 12:00 10/08/17 11:59 10/02/17 14:01 Chlorhexidine Gluconate (Kenia-Hex 2%) 1 applic DAILY@2000 TOPIC 09/25/17 20:00 10/24/17 19:59 10/01/17 20:21 Dextrose (Dextrose 50%) No Dose PRN IV hypoglycemia 09/28/17 00:00 10/28/17 00:00 Fat Emulsion Intravenous 168 ml/Amino Acids/ Electrolytes/ Dextrose 1,320 ml @ 55 mls/hr Q24H IV 09/28/17 20:00 10/28/17 19:59 10/01/17 20:21 Fluconazole/ Sodium Chloride 100 ml @ 100 mls/hr Q24H IV 09/27/17 18:00 10/04/17 17:59 10/01/17 17:14 Gabapentin (Neurontin) 100 mg THREE TIMES A DAY ORAL 10/01/17 15:00 10/31/17 14:59 10/02/17 12:34 Heparin Sodium (Porcine) (Heparin 5000 units/ml) 5,000 units EVERY 12 HOURS SUBQ 09/25/17 21:00 10/23/17 08:59 10/02/17 10:35 Hydromorphone HCl (Dilaudid) 1 mg Q3H PRN IVP pain score 4-6 09/29/17 10:45 10/03/17 23:59 Hydromorphone HCl (Dilaudid) 3 mg Q2H PRN IVP pain score 7-10 09/29/17 10:30 10/04/17 23:59 10/02/17 14:31 Insulin Aspart (NovoLOG) No Dose Q6HR SUBQ 09/28/17 00:00 10/28/17 00:00 10/02/17 06:21 Ondansetron HCl (Zofran) 4 mg Q6H PRN IVP Nausea & Vomiting 09/25/17 16:30 10/22/17 16:29 Pantoprazole (Protonix) 40 mg DAILY IVP 09/26/17 09:00 10/23/17 08:59 10/02/17 10:21 Phytonadione (Vitamin K) 10 mg QWEEK SUBQ 09/27/17 20:00 10/27/17 19:59 09/27/17 21:36 Povidone Iodine (Betadine Annamaria) 1 applic DAILY@2100 TOPIC 10/02/17 21:00 11/01/17 20:59 Senna/Docusate Sodium (Jinny-Colace) 1 tab TWICE A DAY ORAL 09/29/17 18:00 10/29/17 17:59 10/02/17 10:21 JL CHAVEZ Oct 02, 2017 15:20
[2017-10-02 16:00] VITALS: BP 100/65
--- NOTE | 2017-10-02 17:29 | General Surgery Progress Note ---
General Surgery-Progress Note Subjective Symptoms: improved, BM Objective Last 24 Hour Vital Signs Date Time Temp Pulse Resp B/P (MAP) Pulse Ox O2 Delivery O2 Flow Rate FiO2 10/02/17 16:00 97.9 97 18 100/65 98 Room Air 10/02/17 15:01 98.7 10/02/17 12:00 Room Air 10/02/17 12:00 97.6 99 18 106/68 99 10/02/17 08:00 98.7 84 19 136/79 99 Room Air 10/02/17 04:00 97.0 102 20 108/72 98 10/02/17 00:00 97.3 110 18 112/74 98 Room Air 10/01/17 20:00 98.2 94 19 102/68 100 I&O Intake and Output 10/01/17 10/02/17 19:00 07:00 Intake Total 530 ml 715 ml Output Total 460 ml 208 ml Balance 70 ml 507 ml Intake Oral 420 ml IV Total 110 ml 715 ml Output Urine Total 400 ml 200 ml Stool Total 50 ml Drainage Total 10 ml 8 ml # Voids 2 2 # Bowel Movements 2 Wound: other - packing Drains: james Respiratory: clear Abdomen: soft, flat, non-tender, present bowel sounds Extremities: no tenderness Laboratory Tests Test 10/02/17 07:05 White Blood Count 17.9 K/UL (4.8-10.8) H Red Blood Count 4.04 M/UL (4.20-5.40) L Hemoglobin 11.7 G/DL (12.0-16.0) L Hematocrit 35.9 % (37.0-47.0) L Mean Corpuscular Volume 89 FL (80-99) Mean Corpuscular Hemoglobin 29.0 PG (27.0-31.0) Mean Corpuscular Hemoglobin Concent 32.7 G/DL (32.0-36.0) Red Cell Distribution Width 16.6 % (11.6-14.8) H Platelet Count 327 K/UL (150-450) Mean Platelet Volume 6.8 FL (6.5-10.1) Neutrophils (%) (Auto) % (45.0-75.0) Lymphocytes (%) (Auto) % (20.0-45.0) Monocytes (%) (Auto) % (1.0-10.0) Eosinophils (%) (Auto) % (0.0-3.0) Basophils (%) (Auto) % (0.0-2.0) Differential Total Cells Counted 100 Neutrophils % (Manual) 94 % (45-75) H Lymphocytes % (Manual) 2 % (20-45) L Monocytes % (Manual) 3 % (1-10) Eosinophils % (Manual) 1 % (0-3) Basophils % (Manual) 0 % (0-2) Band Neutrophils 0 % (0-8) Platelet Estimate Adequate Platelet Morphology Normal Red Blood Cell Morphology Normal Sodium Level 133 MMOL/L (136-145) L Potassium Level 4.8 MMOL/L (3.5-5.1) Chloride Level 97 MMOL/L (98-107) L Carbon Dioxide Level 28 MMOL/L (21-32) Anion Gap 8 mmol/L (5-15) Blood Urea Nitrogen 8 mg/dL (7-18) Creatinine 0.4 MG/DL (0.55-1.30) L Estimat Glomerular Filtration Rate > 60 mL/min (>60) Glucose Level 105 MG/DL (74-106) Calcium Level 9.3 MG/DL (8.5-10.1) Total Bilirubin 1.5 MG/DL (0.2-1.0) H Direct Bilirubin 0.6 MG/DL (0.0-0.3) H Aspartate Amino Transf (AST/SGOT) 30 U/L (15-37) Alanine Aminotransferase (ALT/SGPT) 37 U/L (12-78) Alkaline Phosphatase 223 U/L (46-116) H Total Protein 7.3 G/DL (6.4-8.2) Albumin 1.7 G/DL (3.4-5.0) L Globulin 5.6 g/dL Albumin/Globulin Ratio 0.3 (1.0-2.7) L Assessment Post-op Diagnosis perforation of cecum and recto-sigmoid Plan Additional Comments continue antibiotics DWAYNE OLIVER Oct 02, 2017 17:29
[2017-10-02 20:00] VITALS: BP 107/72
[2017-10-02] MEDS: Betadine 4oz Bottle TOPIC SCH (20:47)
[2017-10-02] MEDS: Dyna-Hex 2% Top Sol 2oz TOPIC SCH (20:48)
--- NOTE | 2017-10-02 20:48 | Cardiology Progress Note ---
Assessment/Plan Assessment/Plan 1. Sinus tachycardia, resolved, most likely due to volume depletion, continue hydration. 2. Hypotension, due to intravascular volume depletion, continue hydration. 3. History of cervical cancer, status post chemotherapy. 4. s/p rectosigmoid resection, POD #10 with peritonitis. Subjective Subjective Denies chest pain or SOB. No cardiac events. Objective Last 24 Hour Vital Signs Date Time Temp Pulse Resp B/P (MAP) Pulse Ox O2 Delivery O2 Flow Rate FiO2 10/02/17 20:00 97.6 78 19 107/72 100 10/02/17 19:05 98.7 10/02/17 16:00 97.9 97 18 100/65 98 Room Air 10/02/17 12:00 Room Air 10/02/17 12:00 97.6 99 18 106/68 99 10/02/17 08:00 98.7 84 19 136/79 99 Room Air 10/02/17 04:00 97.0 102 20 108/72 98 10/02/17 00:00 97.3 110 18 112/74 98 Room Air Intake and Output 10/01/17 10/02/17 19:00 07:00 Intake Total 530 ml 715 ml Output Total 460 ml 208 ml Balance 70 ml 507 ml Intake Oral 420 ml IV Total 110 ml 715 ml Output Urine Total 400 ml 200 ml Stool Total 50 ml Drainage Total 10 ml 8 ml # Voids 2 2 # Bowel Movements 2 Laboratory Tests Test 10/02/17 07:05 White Blood Count 17.9 K/UL (4.8-10.8) H Red Blood Count 4.04 M/UL (4.20-5.40) L Hemoglobin 11.7 G/DL (12.0-16.0) L Hematocrit 35.9 % (37.0-47.0) L Mean Corpuscular Volume 89 FL (80-99) Mean Corpuscular Hemoglobin 29.0 PG (27.0-31.0) Mean Corpuscular Hemoglobin Concent 32.7 G/DL (32.0-36.0) Red Cell Distribution Width 16.6 % (11.6-14.8) H Platelet Count 327 K/UL (150-450) Mean Platelet Volume 6.8 FL (6.5-10.1) Neutrophils (%) (Auto) % (45.0-75.0) Lymphocytes (%) (Auto) % (20.0-45.0) Monocytes (%) (Auto) % (1.0-10.0) Eosinophils (%) (Auto) % (0.0-3.0) Basophils (%) (Auto) % (0.0-2.0) Differential Total Cells Counted 100 Neutrophils % (Manual) 94 % (45-75) H Lymphocytes % (Manual) 2 % (20-45) L Monocytes % (Manual) 3 % (1-10) Eosinophils % (Manual) 1 % (0-3) Basophils % (Manual) 0 % (0-2) Band Neutrophils 0 % (0-8) Platelet Estimate Adequate Platelet Morphology Normal Red Blood Cell Morphology Normal Sodium Level 133 MMOL/L (136-145) L Potassium Level 4.8 MMOL/L (3.5-5.1) Chloride Level 97 MMOL/L (98-107) L Carbon Dioxide Level 28 MMOL/L (21-32) Anion Gap 8 mmol/L (5-15) Blood Urea Nitrogen 8 mg/dL (7-18) Creatinine 0.4 MG/DL (0.55-1.30) L Estimat Glomerular Filtration Rate > 60 mL/min (>60) Glucose Level 105 MG/DL (74-106) Calcium Level 9.3 MG/DL (8.5-10.1) Total Bilirubin 1.5 MG/DL (0.2-1.0) H Direct Bilirubin 0.6 MG/DL (0.0-0.3) H Aspartate Amino Transf (AST/SGOT) 30 U/L (15-37) Alanine Aminotransferase (ALT/SGPT) 37 U/L (12-78) Alkaline Phosphatase 223 U/L (46-116) H Total Protein 7.3 G/DL (6.4-8.2) Albumin 1.7 G/DL (3.4-5.0) L Globulin 5.6 g/dL Albumin/Globulin Ratio 0.3 (1.0-2.7) L Objective HEENT: Atraumatic and normocephalic. Anicteric. Pupils are equal, round, and reactive to light and accommodation. There is conjunctival pallor. NECK: JVP less than 5 cm. No carotid bruit. Carotid upstrokes 2+ bilaterally. CARDIOVASCULAR: Normal S1 and S2. Regular rate and rhythm. No murmurs, gallops, or rubs. LUNGS: Clear to auscultation bilaterally. ABDOMEN: Soft, nontender, and nondistended. No hepatosplenomegaly. Positive bowel sounds. EXTREMITIES: No evidence of edema, clubbing, or cyanosis. JUDITH WATSON Oct 02, 2017 20:48
[2017-10-02] MEDS: TPN IV SCH (20:51)
[2017-10-02] MEDS: FAT EMULSION 20% IV SCH (20:51)
--- NOTE | 2017-10-02 23:33 | General Progress Note ---
Assessment/Plan Status: stable Assessment/Plan # Leukocytosis is likely reactive from Acute abdominal pain 2 to perforation with perforated cecum and rectosigmoid s/p exp laparotomy with partial R hemicolectomy --> remains elevated --> continue to closely monitor. # Cervical Ca s/p surgery and radiation, has not received any chemotherapy recently # Thrombocytosis is likely related to chronic reactive process --> resolved # Anemia of chronic disease --> w/u has been reviewed --> Blood transfusion not required unless symptomatic or hgb <7 --> Has not required blood transfusion # Anemia of GI bleeding --> GI followup. # Severe protein calorie malnutrition Subjective Date patient seen: Oct 02, 2017 HEENT: Denies: no symptoms, eye pain, blurred vision, tearing, double vision, ear pain, ear discharge, nose pain, nose congestion, throat pain, throat swelling, mouth pain, mouth swelling, other Cardiovascular: Denies: no symptoms, chest pain, edema, irregular heart rate, lightheadedness, palpitations, syncope, other Respiratory: Denies: no symptoms, cough, orthopnea, shortness of breath, SOB with excertion, SOB at rest, sputum, stridor, wheezing, other Gastrointestinal/Abdominal: Denies: no symptoms, abdomen distended, abdominal pain, black stools, tarry stools, blood in stool, constipated, diarrhea, difficulty swallowing, nausea, poor appetite, poor fluid intake, rectal bleeding , vomiting, other Hematologic/Lymphatic: Reports: anemia, other - leuk Allergies: Coded Allergies: No Known Allergies (Unverified , 09/10/17) Subjective Remains lethargic. Leukocytosis remains. No fever. Objective Last 24 Hour Vital Signs Date Time Temp Pulse Resp B/P (MAP) Pulse Ox O2 Delivery O2 Flow Rate FiO2 10/02/17 21:17 97.6 10/02/17 20:00 97.6 78 19 107/72 100 10/02/17 16:00 97.9 97 18 100/65 98 Room Air 10/02/17 12:00 Room Air 10/02/17 12:00 97.6 99 18 106/68 99 10/02/17 08:00 98.7 84 19 136/79 99 Room Air 10/02/17 04:00 97.0 102 20 108/72 98 10/02/17 00:00 97.3 110 18 112/74 98 Room Air Intake and Output 10/01/17 10/02/17 19:00 07:00 Intake Total 1080 ml 770 ml Output Total 460 ml 208 ml Balance 620 ml 562 ml Intake Oral 420 ml IV Total 660 ml 770 ml Output Urine Total 400 ml 200 ml Stool Total 50 ml Drainage Total 10 ml 8 ml # Voids 2 2 # Bowel Movements 2 Laboratory Tests 10/02/17 07:05: White Blood Count 17.9H, Red Blood Count 4.04L, Hemoglobin 11.7L, Hematocrit 35.9L, Mean Corpuscular Volume 89, Mean Corpuscular Hemoglobin 29.0, Mean Corpuscular Hemoglobin Concent 32.7, Red Cell Distribution Width 16.6H, Platelet Count 327, Mean Platelet Volume 6.8, Neutrophils (%) (Auto) , Lymphocytes (%) (Auto) , Monocytes (%) (Auto) , Eosinophils (%) (Auto) , Basophils (%) (Auto) , Differential Total Cells Counted 100, Neutrophils % ( Manual) 94H, Lymphocytes % (Manual) 2L, Monocytes % (Manual) 3, Eosinophils % ( Manual) 1, Basophils % (Manual) 0, Band Neutrophils 0, Platelet Estimate Adequate, Platelet Morphology Normal, Red Blood Cell Morphology Normal, Sodium Level 133L, Potassium Level 4.8, Chloride Level 97L, Carbon Dioxide Level 28, Anion Gap 8, Blood Urea Nitrogen 8, Creatinine 0.4L, Estimat Glomerular Filtration Rate > 60, Glucose Level 105, Calcium Level 9.3, Total Bilirubin 1.5H , Direct Bilirubin 0.6H, Aspartate Amino Transf (AST/SGOT) 30, Alanine Aminotransferase (ALT/SGPT) 37, Alkaline Phosphatase 223H, Total Protein 7.3, Albumin 1.7L, Globulin 5.6, Albumin/Globulin Ratio 0.3L Height (Feet): 5 Height (Inches): 3.00 Weight (Pounds): 72 General Appearance: confused Cardiovascular: regular rhythm Respiratory/Chest: decreased breath sounds Abdomen: non tender, soft Edema: trace edema Neurologic: magistrate II-XII grossly normal Skin: warm/dry Chris Spencer Oct 02, 2017 23:33
[2017-10-03] VITALS: BP 103/64
[2017-10-03] MEDS: Ampicillin/Sulbactam Sod 3 GM in NS 110 ML IVPB SCH ×4 (00:54→18:13)
[2017-10-03 04:00] VITALS: BP 110/70
[2017-10-03] MEDS: Insulin NovoLOG Flexpen S/S (insulin sensitive) SUBQ SCH ×4 (06:03→18:00)
[2017-10-03 08:00] VITALS: BP 104/64
[2017-10-03] MEDS: Docusate Sod/Senna tab ORAL SCH ×2 (09:00→18:11)
[2017-10-03] MEDS: Pantoprazole Inj IVP SCH (09:01)
[2017-10-03] MEDS: Heparin 5000 units/ml inj SUBQ SCH ×2 (09:06→21:36)
--- NOTE | 2017-10-03 09:19 | General Progress Note ---
Assessment/Plan Assessment/Plan (1) Intractable abdominal pain (2) Perforation of the cecum and the rectosigmoid (3) S/p Exploratory laparotomy and lysis of the adhesion (4) Partial right hemicolectomy with primary anastomosis (5) Resection of the rectosigmoid with Katerina pouch and colostomy (6) Cervical cancer Pt to be continued on Dilaudid changed to 4mg PO 1 tab Q4H PRN severe pain, Dilaudid 1mg IV Q6H PRN severe breakthrough pain and Neurontin. An Rx for Dilaudid 2mg PO 1-2 tabs Q4-6H PRN 30 tabs was written for patient in anticipation for discharge. D/w Dr. Ochoa and he concurred. Subjective Date patient seen: Oct 03, 2017 Time patient seen: 07:00 - am Allergies: Coded Allergies: No Known Allergies (Unverified , 09/10/17) Subjective REVIEW OF SYSTEMS: Denies rash, fever, chills, sweating, dizziness, drowsiness, blurred vision, sore throat, or change in her weight. Denies change in hearing. No bowel or bladder incontinence at this time. No dysuria. She is complaining of abdominal pain. SUBJECTIVE: Patient is in bed. She continues to c/o abdominal pain. Has started regular diet as per surgeon. D/w pt about change from IV to Tabs and she understands. Objective Last 24 Hour Vital Signs Date Time Temp Pulse Resp B/P (MAP) Pulse Ox O2 Delivery O2 Flow Rate FiO2 10/03/17 08:00 97.9 101 20 104/64 99 10/03/17 04:00 99 Room Air 10/03/17 04:00 97.7 105 18 110/70 99 Room Air 10/03/17 00:00 97.5 98 19 103/64 97 10/02/17 23:20 97.6 10/02/17 20:00 100 Room Air 10/02/17 20:00 97.6 78 19 107/72 100 10/02/17 16:00 97.9 97 18 100/65 98 Room Air 10/02/17 12:00 Room Air 10/02/17 12:00 97.6 99 18 106/68 99 Intake and Output 10/02/17 10/03/17 19:00 07:00 Intake Total 1070 ml 1045 ml Output Total 10 ml Balance 1060 ml 1045 ml Intake Oral 300 ml IV Total 770 ml 1045 ml Drainage Total 10 ml # Voids 6 4 Height (Feet): 5 Height (Inches): 3.00 Weight (Pounds): 72 Objective GENERAL: Alert, awake, and oriented. HEENT: PERRLA. NECK: Range of motion is full in all directions. No tenderness to paracervical muscles. No adenopathy. LUNGS: Decreased breath sounds bilaterally. ABDOMEN: Surgical wounds with bandages applied. Colostomy bag noted with tenderness to palpation. BACK: Range of motion is decreased in flexion and extension. EXTREMITIES: No cyanosis and no clubbing. NEUROLOGIC: Generalized weakness noted. ROSA MARIA MELGAR Oct 03, 2017 09:19
--- NOTE | 2017-10-03 10:21 | Nephrology Progress Note ---
Assessment/Plan Assessment 1. Acute renal failure 2. Hyponatremia worse 3. Malnutrition. 4. hyperkalemia. 5. Dehydration. 6. History of cervical cancer. Plan plan adjust TPN mix all ivpb with ns .9 monitoring renal function avoid NSAID replace electrolyte as need it Subjective Subjective alert and awake no complaints Objective Objective Last 24 Hour Vital Signs Date Time Temp Pulse Resp B/P (MAP) Pulse Ox O2 Delivery O2 Flow Rate FiO2 10/03/17 08:00 97.9 101 20 104/64 99 10/03/17 04:00 99 Room Air 10/03/17 04:00 97.7 105 18 110/70 99 Room Air 10/03/17 00:00 97.5 98 19 103/64 97 10/02/17 23:20 97.6 10/02/17 20:00 100 Room Air 10/02/17 20:00 97.6 78 19 107/72 100 10/02/17 16:00 97.9 97 18 100/65 98 Room Air 10/02/17 12:00 Room Air 10/02/17 12:00 97.6 99 18 106/68 99 Intake and Output 10/02/17 10/03/17 19:00 07:00 Intake Total 1070 ml 1045 ml Output Total 10 ml Balance 1060 ml 1045 ml Intake Oral 300 ml IV Total 770 ml 1045 ml Drainage Total 10 ml # Voids 6 4 Laboratory Tests 10/03/17 09:50: White Blood Count [Pending], Red Blood Count [Pending], Hemoglobin [Pending], Hematocrit [Pending], Mean Corpuscular Volume [Pending], Mean Corpuscular Hemoglobin [Pending], Mean Corpuscular Hemoglobin Concent [Pending], Red Cell Distribution Width [Pending], Platelet Count [Pending], Mean Platelet Volume [ Pending], Neutrophils (%) (Auto) [Pending], Lymphocytes (%) (Auto) [Pending], Monocytes (%) (Auto) [Pending], Eosinophils (%) (Auto) [Pending], Basophils (%) (Auto) [Pending], Sodium Level [Pending], Potassium Level [Pending], Chloride Level [Pending], Carbon Dioxide Level [Pending], Blood Urea Nitrogen [Pending], Creatinine [Pending], Estimat Glomerular Filtration Rate [Pending], Glucose Level [Pending], Calcium Level [Pending], Phosphorus Level [Pending], Magnesium Level [Pending] Height (Feet): 5 Height (Inches): 3.00 Weight (Pounds): 72 Objective HEAD AND NECK: No JVP. No LAD. No thyromegaly. Extraocular movement intact. Pupils are reactive to light and accommodation. LUNGS: Decreased breathing sounds. CARDIAC: Regular rate and rhythm. S1 and S2. No murmur. No rub. ABDOMEN: Distended. Bowel sounds are positive. Diffuse tenderness. No guarding. No rebound. EXTREMITIES: A 1+ to 2+ edema. No clubbing. No cyanosis. NEUROLOGIC: Cranial nerves II through XII within normal limits. Upper and lower extremities are grossly intact. LORRAINE GROVER Oct 03, 2017 10:21
--- NOTE | 2017-10-03 10:27 | GI Progress Note ---
Assessment/Plan Problems: (1) Perforation of cecum ICD Codes: K63.1 - Perforation of intestine (nontraumatic) SNOMED: 559708667 (2) Perforated sigmoid colon ICD Codes: K63.1 - Perforation of intestine (nontraumatic) SNOMED: 658610577 (3) Intra-abdominal free air of unknown etiology ICD Codes: K66.8 - Other specified disorders of peritoneum SNOMED: 99039025 (4) Abdominal pain ICD Codes: R10.9 - Unspecified abdominal pain SNOMED: 72984733 Qualifiers: Qualified Codes: R10.13 - Epigastric pain (5) GI bleed ICD Codes: K92.2 - Gastrointestinal hemorrhage, unspecified SNOMED: 89449499 Qualifiers: Qualified Codes: K92.2 - Gastrointestinal hemorrhage, unspecified (6) Anemia ICD Codes: D64.9 - Anemia, unspecified SNOMED: 192680570 Qualifiers: Qualified Codes: D64.9 - Anemia, unspecified Status: progressing, unchanged Status Narrative Discussed with Dr. Jordan. Assessment/Plan post op care fu surgical recs PO diet per surgery TPN >> will taper once patient begins tolerate PO calorie count ordered electrolyte correction PT evaluation pain control fu labs Subjective Subjective hungry generalized weakness feels better Objective Last 24 Hour Vital Signs Date Time Temp Pulse Resp B/P (MAP) Pulse Ox O2 Delivery O2 Flow Rate FiO2 10/03/17 08:00 97.9 101 20 104/64 99 10/03/17 04:00 99 Room Air 10/03/17 04:00 97.7 105 18 110/70 99 Room Air 10/03/17 00:00 97.5 98 19 103/64 97 10/02/17 23:20 97.6 10/02/17 20:00 100 Room Air 10/02/17 20:00 97.6 78 19 107/72 100 10/02/17 16:00 97.9 97 18 100/65 98 Room Air 10/02/17 12:00 Room Air 10/02/17 12:00 97.6 99 18 106/68 99 Intake and Output 10/02/17 10/03/17 19:00 07:00 Intake Total 1070 ml 1045 ml Output Total 10 ml Balance 1060 ml 1045 ml Intake Oral 300 ml IV Total 770 ml 1045 ml Drainage Total 10 ml # Voids 6 4 Laboratory Tests Test 10/03/17 09:50 White Blood Count Pending Red Blood Count Pending Hemoglobin Pending Hematocrit Pending Mean Corpuscular Volume Pending Mean Corpuscular Hemoglobin Pending Mean Corpuscular Hemoglobin Concent Pending Red Cell Distribution Width Pending Platelet Count Pending Mean Platelet Volume Pending Neutrophils (%) (Auto) Pending Lymphocytes (%) (Auto) Pending Monocytes (%) (Auto) Pending Eosinophils (%) (Auto) Pending Basophils (%) (Auto) Pending Sodium Level Pending Potassium Level Pending Chloride Level Pending Carbon Dioxide Level Pending Blood Urea Nitrogen Pending Creatinine Pending Estimat Glomerular Filtration Rate Pending Glucose Level Pending Calcium Level Pending Phosphorus Level Pending Magnesium Level Pending Height (Feet): 5 Height (Inches): 3.00 Weight (Pounds): 72 General Appearance: thin Cardiovascular: normal rate Respiratory/Chest: normal breath sounds, no respiratory distress Abdominal Exam: normal bowel sounds, non tender, soft, other - colostomy Extremities: normal range of motion, non-tender Cece Gerard NZhen Oct 03, 2017 10:27
[2017-10-03 10:32] LABS: HEMATOCRIT 36.4 % (37.0-47.0); HEMOGLOBIN 11.6 G/DL (12.0-16.0); MEAN CORPUSCULAR VOLUME 89 FL (80-99); PLATELET COUNT 267 K/UL (150-450); RED BLOOD COUNT 4.07 M/UL (4.20-5.40); RED CELL DISTRIBUTION WIDTH 16.5 % (11.6-14.8); WHITE BLOOD COUNT 17.1 K/UL (4.8-10.8)
[2017-10-03 10:41] LABS: ANION GAP 8 mmol/L (5-15); BLOOD UREA NITROGEN 8 mg/dL (7-18); CALCIUM 9.4 MG/DL (8.5-10.1); CARBON DIOXIDE 26 MMOL/L (21-32); CHLORIDE 96 MMOL/L (98-107); CREATININE 0.4 MG/DL (0.55-1.30); PHOSPHORUS 4.1 MG/DL (2.5-4.9); POTASSIUM 4.5 MMOL/L (3.5-5.1); SODIUM 130 MMOL/L (136-145)
[2017-10-03] MEDS: HYDROmorphone 4mg tab ORAL PRN ×4 (11:05→22:57)
[2017-10-03 12:00] VITALS: BP 112/71
--- NOTE | 2017-10-03 12:27 | General Progress Note ---
Assessment/Plan Problem List: (1) Anemia ICD Codes: D64.9 - Anemia, unspecified SNOMED: 233991780 Qualifiers: Qualified Codes: D64.9 - Anemia, unspecified (2) GI bleed ICD Codes: K92.2 - Gastrointestinal hemorrhage, unspecified SNOMED: 69010902 Qualifiers: Qualified Codes: K92.2 - Gastrointestinal hemorrhage, unspecified (3) Abdominal pain ICD Codes: R10.9 - Unspecified abdominal pain SNOMED: 78585433 Qualifiers: Qualified Codes: R10.13 - Epigastric pain Status: unchanged Assessment/Plan ot pt diet cbc bmp am gi f/u id eval dc plan Subjective Constitutional: Reports: weakness Allergies: Coded Allergies: No Known Allergies (Unverified , 09/10/17) All Systems: reviewed and negative except above Subjective sl nauseus Objective Last 24 Hour Vital Signs Date Time Temp Pulse Resp B/P (MAP) Pulse Ox O2 Delivery O2 Flow Rate FiO2 10/03/17 12:00 97.8 114 20 112/71 98 10/03/17 09:30 97.9 10/03/17 08:00 97.9 101 20 104/64 99 10/03/17 04:00 99 Room Air 10/03/17 04:00 97.7 105 18 110/70 99 Room Air 10/03/17 00:00 97.5 98 19 103/64 97 10/02/17 20:00 100 Room Air 10/02/17 20:00 97.6 78 19 107/72 100 10/02/17 16:00 97.9 97 18 100/65 98 Room Air Intake and Output 10/02/17 10/03/17 19:00 07:00 Intake Total 1070 ml 1045 ml Output Total 10 ml Balance 1060 ml 1045 ml Intake Oral 300 ml IV Total 770 ml 1045 ml Drainage Total 10 ml # Voids 6 4 Laboratory Tests 10/03/17 09:50: White Blood Count 17.1H, Red Blood Count 4.07L, Hemoglobin 11.6L, Hematocrit 36.4L, Mean Corpuscular Volume 89, Mean Corpuscular Hemoglobin 28.4, Mean Corpuscular Hemoglobin Concent 31.8L, Red Cell Distribution Width 16.5H, Platelet Count 267, Mean Platelet Volume 6.6, Neutrophils (%) (Auto) , Lymphocytes (%) (Auto) , Monocytes (%) (Auto) , Eosinophils (%) (Auto) , Basophils (%) (Auto) , Neutrophils % (Manual) [Pending], Lymphocytes % (Manual) [Pending], Platelet Estimate [Pending], Platelet Morphology [Pending], Sodium Level 130L, Potassium Level 4.5, Chloride Level 96L, Carbon Dioxide Level 26, Anion Gap 8, Blood Urea Nitrogen 8, Creatinine 0.4L, Estimat Glomerular Filtration Rate > 60, Glucose Level 124H, Calcium Level 9.4, Phosphorus Level 4.1, Magnesium Level 1.8 Height (Feet): 5 Height (Inches): 3.00 Weight (Pounds): 72 General Appearance: lethargic EENT: normal ENT inspection Neck: normal alignment Cardiovascular: normal peripheral pulses, normal rate, regular rhythm Respiratory/Chest: chest wall non-tender, lungs clear, normal breath sounds Abdomen: non tender, soft, hypoactive bowel sounds Extremities: normal inspection Edema: no edema noted Arm (L), no edema noted Arm (R), no edema noted Leg (L), no edema noted Leg (R), no edema noted Pedal (L), no edema noted Pedal (R), no edema noted Generalized Neurologic: responsive, motor weakness Skin: normal pigmentation, warm/dry SONIDO FELICIANO Oct 03, 2017 12:27
[2017-10-03] MEDS: Hydromorphone 0.5mg/0.5ml inj IVP PRN ×2 (12:30→18:02)
--- NOTE | 2017-10-03 13:23 | Infectious Diseases Prog Note ---
Assessment/Plan Assessment/Plan A; Perforated bowel Peritonitis with E. coli, Enterococcus, C. albicans & Prevotella Cervical cancer P: continue Unasyn & Fluconazole Subjective ROS Limited/Unobtainable: No Constitutional: Reports: fatigue, anorexia Respiratory: Reports: no symptoms Gastrointestinal/Abdominal: Reports: no symptoms, other - pain Allergies: Coded Allergies: No Known Allergies (Unverified , 09/10/17) Objective Vital Signs Last 24 Hour Vital Signs Date Time Temp Pulse Resp B/P (MAP) Pulse Ox O2 Delivery O2 Flow Rate FiO2 10/03/17 12:04 97.8 10/03/17 12:00 97.8 114 20 112/71 98 10/03/17 09:30 97.9 10/03/17 08:00 97.9 101 20 104/64 99 10/03/17 04:00 99 Room Air 10/03/17 04:00 97.7 105 18 110/70 99 Room Air 10/03/17 00:00 97.5 98 19 103/64 97 10/02/17 20:00 100 Room Air 10/02/17 20:00 97.6 78 19 107/72 100 10/02/17 16:00 97.9 97 18 100/65 98 Room Air Height (Feet): 5 Height (Inches): 3.00 Weight (Pounds): 72 General Appearance: cachetic HEENT: mucous membranes moist Respiratory/Chest: lungs clear Cardiovascular: tachycardia, other - RIj line Abdomen: soft, non tender, other - s/p osteotomy Extremities: no edema Neurologic/Psychiatric: alert, oriented x 3, responsive Laboratory Tests Test 10/03/17 09:50 White Blood Count 17.1 K/UL (4.8-10.8) H Red Blood Count 4.07 M/UL (4.20-5.40) L Hemoglobin 11.6 G/DL (12.0-16.0) L Hematocrit 36.4 % (37.0-47.0) L Mean Corpuscular Volume 89 FL (80-99) Mean Corpuscular Hemoglobin 28.4 PG (27.0-31.0) Mean Corpuscular Hemoglobin Concent 31.8 G/DL (32.0-36.0) L Red Cell Distribution Width 16.5 % (11.6-14.8) H Platelet Count 267 K/UL (150-450) Mean Platelet Volume 6.6 FL (6.5-10.1) Neutrophils (%) (Auto) % (45.0-75.0) Lymphocytes (%) (Auto) % (20.0-45.0) Monocytes (%) (Auto) % (1.0-10.0) Eosinophils (%) (Auto) % (0.0-3.0) Basophils (%) (Auto) % (0.0-2.0) Differential Total Cells Counted 100 Neutrophils % (Manual) 93 % (45-75) H Lymphocytes % (Manual) 2 % (20-45) L Monocytes % (Manual) 5 % (1-10) Eosinophils % (Manual) 0 % (0-3) Basophils % (Manual) 0 % (0-2) Band Neutrophils 0 % (0-8) Platelet Estimate Adequate Platelet Morphology Normal Hypochromasia 1+ Anisocytosis 1+ Sodium Level 130 MMOL/L (136-145) L Potassium Level 4.5 MMOL/L (3.5-5.1) Chloride Level 96 MMOL/L (98-107) L Carbon Dioxide Level 26 MMOL/L (21-32) Anion Gap 8 mmol/L (5-15) Blood Urea Nitrogen 8 mg/dL (7-18) Creatinine 0.4 MG/DL (0.55-1.30) L Estimat Glomerular Filtration Rate > 60 mL/min (>60) Glucose Level 124 MG/DL (74-106) H Calcium Level 9.4 MG/DL (8.5-10.1) Phosphorus Level 4.1 MG/DL (2.5-4.9) Magnesium Level 1.8 MG/DL (1.8-2.4) Current Medications Medications (Trade) Dose Ordered Sig/Francoise Route PRN Reason Start Time Stop Time Status Last Admin Dose Admin Acetaminophen (Tylenol) 650 mg Q4H PRN RECTAL FEVER 09/25/17 16:30 10/22/17 16:29 Ampicillin Sodium/ Sulbactam Sodium 3 gm/Sodium Chloride 110 ml @ 220 mls/hr Q6HR IVPB 10/01/17 12:00 10/08/17 11:59 10/03/17 12:30 Chlorhexidine Gluconate (Kenia-Hex 2%) 1 applic DAILY@1999 TOPIC 09/25/17 20:00 10/24/17 19:59 10/02/17 20:48 Dextrose (Dextrose 50%) No Dose PRN IV hypoglycemia 09/28/17 00:00 10/28/17 00:00 Fat Emulsion Intravenous 168 ml/Amino Acids/ Electrolytes/ Dextrose 1,320 ml @ 55 mls/hr Q24H IV 09/28/17 20:00 10/28/17 19:59 10/02/17 20:51 Fluconazole/ Sodium Chloride 100 ml @ 100 mls/hr Q24H IV 09/27/17 18:00 10/04/17 17:59 10/01/17 17:14 Gabapentin (Neurontin) 100 mg THREE TIMES A DAY ORAL 10/01/17 15:00 10/31/17 14:59 10/03/17 12:41 Heparin Sodium (Porcine) (Heparin 5000 units/ml) 5,000 units EVERY 12 HOURS SUBQ 09/25/17 21:00 10/23/17 08:59 10/03/17 09:06 Hydromorphone HCl (Dilaudid) 1 mg Q6H PRN IVP Severe Breakthru Pain (>7) 10/03/17 09:30 10/10/17 09:29 10/03/17 12:30 Hydromorphone HCl (Dilaudid) 4 mg Q4H PRN ORAL Severe Pain (Pain Scale 7-10) 10/03/17 09:30 10/10/17 09:29 10/03/17 11:05 Insulin Aspart (NovoLOG) No Dose Q6HR SUBQ 09/28/17 00:00 10/28/17 00:00 10/03/17 06:03 Ondansetron HCl (Zofran) 4 mg Q6H PRN IVP Nausea & Vomiting 09/25/17 16:30 10/22/17 16:29 Pantoprazole (Protonix) 40 mg DAILY IVP 09/26/17 09:00 10/23/17 08:59 10/03/17 09:01 Phytonadione (Vitamin K) 10 mg QWEEK SUBQ 09/27/17 20:00 10/27/17 19:59 09/27/17 21:36 Povidone Iodine (Betadine Annamaria) 1 applic DAILY@2100 TOPIC 10/02/17 21:00 11/01/17 20:59 10/02/17 20:47 Senna/Docusate Sodium (Jinny-Colace) 1 tab TWICE A DAY ORAL 09/29/17 18:00 10/29/17 17:59 10/03/17 09:00 Zolpidem Tartrate (Ambien) 5 mg HSPRN PRN ORAL Insomnia 10/03/17 09:30 10/10/17 09:29 CHERYLE WOLFE Oct 03, 2017 13:23
--- NOTE | 2017-10-03 14:04 | General Surgery Progress Note ---
General Surgery-Progress Note Subjective Symptoms: BM Objective Last 24 Hour Vital Signs Date Time Temp Pulse Resp B/P (MAP) Pulse Ox O2 Delivery O2 Flow Rate FiO2 10/03/17 12:04 97.8 10/03/17 12:00 97.8 114 20 112/71 98 10/03/17 09:30 97.9 10/03/17 08:00 97.9 101 20 104/64 99 10/03/17 04:00 99 Room Air 10/03/17 04:00 97.7 105 18 110/70 99 Room Air 10/03/17 00:00 97.5 98 19 103/64 97 10/02/17 20:00 100 Room Air 10/02/17 20:00 97.6 78 19 107/72 100 10/02/17 16:00 97.9 97 18 100/65 98 Room Air I&O Intake and Output 10/02/17 10/03/17 19:00 07:00 Intake Total 1070 ml 1045 ml Output Total 10 ml Balance 1060 ml 1045 ml Intake Oral 300 ml IV Total 770 ml 1045 ml Drainage Total 10 ml # Voids 6 4 Wound: other - packing Drains: james Respiratory: clear Abdomen: soft, flat, non-tender, present bowel sounds Extremities: no tenderness Laboratory Tests Test 10/03/17 09:50 White Blood Count 17.1 K/UL (4.8-10.8) H Red Blood Count 4.07 M/UL (4.20-5.40) L Hemoglobin 11.6 G/DL (12.0-16.0) L Hematocrit 36.4 % (37.0-47.0) L Mean Corpuscular Volume 89 FL (80-99) Mean Corpuscular Hemoglobin 28.4 PG (27.0-31.0) Mean Corpuscular Hemoglobin Concent 31.8 G/DL (32.0-36.0) L Red Cell Distribution Width 16.5 % (11.6-14.8) H Platelet Count 267 K/UL (150-450) Mean Platelet Volume 6.6 FL (6.5-10.1) Neutrophils (%) (Auto) % (45.0-75.0) Lymphocytes (%) (Auto) % (20.0-45.0) Monocytes (%) (Auto) % (1.0-10.0) Eosinophils (%) (Auto) % (0.0-3.0) Basophils (%) (Auto) % (0.0-2.0) Differential Total Cells Counted 100 Neutrophils % (Manual) 93 % (45-75) H Lymphocytes % (Manual) 2 % (20-45) L Monocytes % (Manual) 5 % (1-10) Eosinophils % (Manual) 0 % (0-3) Basophils % (Manual) 0 % (0-2) Band Neutrophils 0 % (0-8) Platelet Estimate Adequate Platelet Morphology Normal Hypochromasia 1+ Anisocytosis 1+ Sodium Level 130 MMOL/L (136-145) L Potassium Level 4.5 MMOL/L (3.5-5.1) Chloride Level 96 MMOL/L (98-107) L Carbon Dioxide Level 26 MMOL/L (21-32) Anion Gap 8 mmol/L (5-15) Blood Urea Nitrogen 8 mg/dL (7-18) Creatinine 0.4 MG/DL (0.55-1.30) L Estimat Glomerular Filtration Rate > 60 mL/min (>60) Glucose Level 124 MG/DL (74-106) H Calcium Level 9.4 MG/DL (8.5-10.1) Phosphorus Level 4.1 MG/DL (2.5-4.9) Magnesium Level 1.8 MG/DL (1.8-2.4) Assessment Post-op Diagnosis perforation of cecum and recto-sigmoid Plan Additional Comments requires referral to local [facility] truck [facility] facility DWAYNE OLIVER Oct 03, 2017 14:04
[2017-10-03 16:06] VITALS: BP 101/76
--- NOTE | 2017-10-03 17:17 | Pulmonology Progress Note ---
Assessment/Plan Problems: (1) Intra-abdominal free air of unknown etiology (2) Perforated sigmoid colon (3) Sepsis Assessment/Plan wbc still high no new complains all reviewed pain management check electroltyes. advance feeding as tolerated, tolerating well Subjective ROS Limited/Unobtainable: No Interval Events: not feeling well Allergies: Coded Allergies: No Known Allergies (Unverified , 09/10/17) Objective Last 24 Hour Vital Signs Date Time Temp Pulse Resp B/P (MAP) Pulse Ox O2 Delivery O2 Flow Rate FiO2 10/03/17 16:06 97.9 110 20 101/76 95 Room Air 10/03/17 16:03 97.9 10/03/17 13:00 97.8 10/03/17 12:00 97.8 114 20 112/71 98 10/03/17 09:30 97.9 10/03/17 08:00 97.9 101 20 104/64 99 10/03/17 04:00 99 Room Air 10/03/17 04:00 97.7 105 18 110/70 99 Room Air 10/03/17 00:00 97.5 98 19 103/64 97 10/02/17 20:00 100 Room Air 10/02/17 20:00 97.6 78 19 107/72 100 Intake and Output 10/02/17 10/03/17 19:00 07:00 Intake Total 1070 ml 1045 ml Output Total 10 ml Balance 1060 ml 1045 ml Intake Oral 300 ml IV Total 770 ml 1045 ml Drainage Total 10 ml # Voids 6 4 Objective General Appearance: WD/WN, no apparent distress, ON tpn, NGtube in place HEENT: normocephalic, atraumatic Neck: non-tender, normal alignment Respiratory/Chest: chest wall non-tender, lungs clear Breasts: no masses Cardiovascular/Chest: normal rate Abdomen: normal bowel sounds, no organomegaly Genitourinary/Rectal: normal genital exam Extremities: normal range of motion Laboratory Tests 10/03/17 09:50: White Blood Count 17.1H, Red Blood Count 4.07L, Hemoglobin 11.6L, Hematocrit 36.4L, Mean Corpuscular Volume 89, Mean Corpuscular Hemoglobin 28.4, Mean Corpuscular Hemoglobin Concent 31.8L, Red Cell Distribution Width 16.5H, Platelet Count 267, Mean Platelet Volume 6.6, Neutrophils (%) (Auto) , Lymphocytes (%) (Auto) , Monocytes (%) (Auto) , Eosinophils (%) (Auto) , Basophils (%) (Auto) , Differential Total Cells Counted 100, Neutrophils % ( Manual) 93H, Lymphocytes % (Manual) 2L, Monocytes % (Manual) 5, Eosinophils % ( Manual) 0, Basophils % (Manual) 0, Band Neutrophils 0, Platelet Estimate Adequate, Platelet Morphology Normal, Hypochromasia 1+, Anisocytosis 1+, Sodium Level 130L, Potassium Level 4.5, Chloride Level 96L, Carbon Dioxide Level 26, Anion Gap 8, Blood Urea Nitrogen 8, Creatinine 0.4L, Estimat Glomerular Filtration Rate > 60, Glucose Level 124H, Calcium Level 9.4, Phosphorus Level 4.1, Magnesium Level 1.8 Current Medications Medications (Trade) Dose Ordered Sig/Francoise Route PRN Reason Start Time Stop Time Status Last Admin Dose Admin Acetaminophen (Tylenol) 650 mg Q4H PRN RECTAL FEVER 09/25/17 16:30 10/22/17 16:29 Ampicillin Sodium/ Sulbactam Sodium 3 gm/Sodium Chloride 110 ml @ 220 mls/hr Q6HR IVPB 10/01/17 12:00 10/08/17 11:59 10/03/17 12:30 Chlorhexidine Gluconate (Kenia-Hex 2%) 1 applic DAILY@2000 TOPIC 09/25/17 20:00 10/24/17 19:59 10/02/17 20:48 Dextrose (Dextrose 50%) No Dose PRN IV hypoglycemia 09/28/17 00:00 10/28/17 00:00 Fat Emulsion Intravenous 168 ml/Amino Acids/ Electrolytes/ Dextrose 1,320 ml @ 55 mls/hr Q24H IV 09/28/17 20:00 10/28/17 19:59 10/02/17 20:51 Fluconazole/ Sodium Chloride 100 ml @ 100 mls/hr Q24H IV 09/27/17 18:00 10/04/17 17:59 10/03/17 17:10 Gabapentin (Neurontin) 100 mg THREE TIMES A DAY ORAL 10/01/17 15:00 10/31/17 14:59 10/03/17 12:41 Heparin Sodium (Porcine) (Heparin 5000 units/ml) 5,000 units EVERY 12 HOURS SUBQ 09/25/17 21:00 10/23/17 08:59 10/03/17 09:06 Hydromorphone HCl (Dilaudid) 1 mg Q6H PRN IVP Severe Breakthru Pain (>7) 10/03/17 09:30 10/10/17 09:29 10/03/17 12:30 Hydromorphone HCl (Dilaudid) 4 mg Q4H PRN ORAL Severe Pain (Pain Scale 7-10) 10/03/17 09:30 10/10/17 09:29 10/03/17 15:04 Insulin Aspart (NovoLOG) No Dose Q6HR SUBQ 09/28/17 00:00 10/28/17 00:00 10/03/17 06:03 Ondansetron HCl (Zofran) 4 mg Q6H PRN IVP Nausea & Vomiting 09/25/17 16:30 10/22/17 16:29 Pantoprazole (Protonix) 40 mg DAILY IVP 09/26/17 09:00 10/23/17 08:59 10/03/17 09:01 Phytonadione (Vitamin K) 10 mg QWEEK SUBQ 09/27/17 20:00 10/27/17 19:59 09/27/17 21:36 Povidone Iodine (Betadine Annamaria) 1 applic DAILY@2100 TOPIC 10/02/17 21:00 11/01/17 20:59 10/02/17 20:47 Senna/Docusate Sodium (Jinny-Colace) 1 tab TWICE A DAY ORAL 09/29/17 18:00 10/29/17 17:59 10/03/17 09:00 Zolpidem Tartrate (Ambien) 5 mg HSPRN PRN ORAL Insomnia 10/03/17 09:30 10/10/17 09:29 JL CHAVEZ Oct 03, 2017 17:17
[2017-10-03 20:00] VITALS: BP 108/66
[2017-10-03] MEDS: Dyna-Hex 2% Top Sol 2oz TOPIC SCH (21:33)
[2017-10-03] MEDS: Betadine 4oz Bottle TOPIC SCH (21:33)
[2017-10-03] MEDS: TPN IV SCH (21:35)
[2017-10-03] MEDS: FAT EMULSION 20% IV SCH (21:35)
--- NOTE | 2017-10-03 22:25 | Cardiology Progress Note ---
Assessment/Plan Assessment/Plan 1. Sinus tachycardia, continue hydration. 2. Hypotension, resolved, continue hydration. 3. History of cervical cancer, status post chemotherapy. 4. s/p rectosigmoid resection, POD #11 with peritonitis. Subjective Subjective Clinically the same from the cardiac standpoint. Objective Last 24 Hour Vital Signs Date Time Temp Pulse Resp B/P (MAP) Pulse Ox O2 Delivery O2 Flow Rate FiO2 10/03/17 20:00 97.7 108 19 108/66 98 10/03/17 18:32 97.9 10/03/17 16:06 97.9 110 20 101/76 95 Room Air 10/03/17 16:03 97.9 10/03/17 12:00 97.8 114 20 112/71 98 10/03/17 09:30 97.9 10/03/17 08:00 97.9 101 20 104/64 99 10/03/17 04:00 99 Room Air 10/03/17 04:00 97.7 105 18 110/70 99 Room Air 10/03/17 00:00 97.5 98 19 103/64 97 Intake and Output 10/02/17 10/03/17 19:00 07:00 Intake Total 1070 ml 1100 ml Output Total 10 ml Balance 1060 ml 1100 ml Intake Oral 300 ml IV Total 770 ml 1100 ml Drainage Total 10 ml # Voids 6 4 Laboratory Tests Test 10/03/17 09:50 White Blood Count 17.1 K/UL (4.8-10.8) H Red Blood Count 4.07 M/UL (4.20-5.40) L Hemoglobin 11.6 G/DL (12.0-16.0) L Hematocrit 36.4 % (37.0-47.0) L Mean Corpuscular Volume 89 FL (80-99) Mean Corpuscular Hemoglobin 28.4 PG (27.0-31.0) Mean Corpuscular Hemoglobin Concent 31.8 G/DL (32.0-36.0) L Red Cell Distribution Width 16.5 % (11.6-14.8) H Platelet Count 267 K/UL (150-450) Mean Platelet Volume 6.6 FL (6.5-10.1) Neutrophils (%) (Auto) % (45.0-75.0) Lymphocytes (%) (Auto) % (20.0-45.0) Monocytes (%) (Auto) % (1.0-10.0) Eosinophils (%) (Auto) % (0.0-3.0) Basophils (%) (Auto) % (0.0-2.0) Differential Total Cells Counted 100 Neutrophils % (Manual) 93 % (45-75) H Lymphocytes % (Manual) 2 % (20-45) L Monocytes % (Manual) 5 % (1-10) Eosinophils % (Manual) 0 % (0-3) Basophils % (Manual) 0 % (0-2) Band Neutrophils 0 % (0-8) Platelet Estimate Adequate Platelet Morphology Normal Hypochromasia 1+ Anisocytosis 1+ Sodium Level 130 MMOL/L (136-145) L Potassium Level 4.5 MMOL/L (3.5-5.1) Chloride Level 96 MMOL/L (98-107) L Carbon Dioxide Level 26 MMOL/L (21-32) Anion Gap 8 mmol/L (5-15) Blood Urea Nitrogen 8 mg/dL (7-18) Creatinine 0.4 MG/DL (0.55-1.30) L Estimat Glomerular Filtration Rate > 60 mL/min (>60) Glucose Level 124 MG/DL (74-106) H Calcium Level 9.4 MG/DL (8.5-10.1) Phosphorus Level 4.1 MG/DL (2.5-4.9) Magnesium Level 1.8 MG/DL (1.8-2.4) Objective HEENT: Atraumatic and normocephalic. Anicteric. Pupils are equal, round, and reactive to light and accommodation. There is conjunctival pallor. NECK: JVP less than 5 cm. No carotid bruit. Carotid upstrokes 2+ bilaterally. CARDIOVASCULAR: Normal S1 and S2. Regular rate and rhythm. No murmurs, gallops, or rubs. LUNGS: Clear to auscultation bilaterally. ABDOMEN: Soft, nontender, and nondistended. No hepatosplenomegaly. Positive bowel sounds. EXTREMITIES: No evidence of edema, clubbing, or cyanosis. JUDITH WATSON Oct 03, 2017 22:25
--- NOTE | 2017-10-03 22:37 | General Progress Note ---
Assessment/Plan Status: unchanged Assessment/Plan # Leukocytosis is likely reactive from Acute abdominal pain 2 to perforation with perforated cecum and rectosigmoid s/p exp laparotomy with partial R hemicolectomy --> improving on abx. --> On pain control for abd pain. --> continue to closely monitor. # Anemia of chronic disease --> w/u has been reviewed --> Blood transfusion not required unless symptomatic or hgb <7 --> Has not required blood transfusion # Cervical Ca s/p surgery and radiation, has not received any chemotherapy recently --> Monitor. # Thrombocytosis is likely related to chronic reactive process --> resolved # Anemia of GI bleeding --> GI followup. # Severe protein calorie malnutrition Subjective Constitutional: Denies: no symptoms, chills, diaphoresis, fever, malaise, weakness, other HEENT: Denies: no symptoms, eye pain, blurred vision, tearing, double vision, ear pain, ear discharge, nose pain, nose congestion, throat pain, throat swelling, mouth pain, mouth swelling, other Cardiovascular: Denies: no symptoms, chest pain, edema, irregular heart rate, lightheadedness, palpitations, syncope, other Respiratory: Denies: no symptoms, cough, orthopnea, shortness of breath, SOB with excertion, SOB at rest, sputum, stridor, wheezing, other Gastrointestinal/Abdominal: Denies: no symptoms, abdomen distended, abdominal pain, black stools, tarry stools, blood in stool, constipated, diarrhea, difficulty swallowing, nausea, poor appetite, poor fluid intake, rectal bleeding , vomiting, other Hematologic/Lymphatic: Reports: anemia Allergies: Coded Allergies: No Known Allergies (Unverified , 09/10/17) Subjective Remains lethargic. On pain control for abd pain. S/P abd CT Objective Last 24 Hour Vital Signs Date Time Temp Pulse Resp B/P (MAP) Pulse Ox O2 Delivery O2 Flow Rate FiO2 10/03/17 20:00 97.7 108 19 108/66 98 10/03/17 18:32 97.9 10/03/17 16:06 97.9 110 20 101/76 95 Room Air 10/03/17 16:03 97.9 10/03/17 12:00 97.8 114 20 112/71 98 10/03/17 09:30 97.9 10/03/17 08:00 97.9 101 20 104/64 99 10/03/17 04:00 99 Room Air 10/03/17 04:00 97.7 105 18 110/70 99 Room Air 10/03/17 00:00 97.5 98 19 103/64 97 Intake and Output 10/02/17 10/03/17 19:00 07:00 Intake Total 1070 ml 1100 ml Output Total 10 ml Balance 1060 ml 1100 ml Intake Oral 300 ml IV Total 770 ml 1100 ml Drainage Total 10 ml # Voids 6 4 Laboratory Tests 10/03/17 09:50: White Blood Count 17.1H, Red Blood Count 4.07L, Hemoglobin 11.6L, Hematocrit 36.4L, Mean Corpuscular Volume 89, Mean Corpuscular Hemoglobin 28.4, Mean Corpuscular Hemoglobin Concent 31.8L, Red Cell Distribution Width 16.5H, Platelet Count 267, Mean Platelet Volume 6.6, Neutrophils (%) (Auto) , Lymphocytes (%) (Auto) , Monocytes (%) (Auto) , Eosinophils (%) (Auto) , Basophils (%) (Auto) , Differential Total Cells Counted 100, Neutrophils % ( Manual) 93H, Lymphocytes % (Manual) 2L, Monocytes % (Manual) 5, Eosinophils % ( Manual) 0, Basophils % (Manual) 0, Band Neutrophils 0, Platelet Estimate Adequate, Platelet Morphology Normal, Hypochromasia 1+, Anisocytosis 1+, Sodium Level 130L, Potassium Level 4.5, Chloride Level 96L, Carbon Dioxide Level 26, Anion Gap 8, Blood Urea Nitrogen 8, Creatinine 0.4L, Estimat Glomerular Filtration Rate > 60, Glucose Level 124H, Calcium Level 9.4, Phosphorus Level 4.1, Magnesium Level 1.8 Height (Feet): 5 Height (Inches): 3.00 Weight (Pounds): 72 General Appearance: lethargic Respiratory/Chest: decreased breath sounds Edema: trace edema Chris Spencer Oct 03, 2017 22:37
[2017-10-03] MEDS: Zolpidem 5mg tab ORAL PRN (22:56)
[2017-10-04] VITALS: BP 100/76
[2017-10-04] MEDS: Hydromorphone 0.5mg/0.5ml inj IVP PRN ×5 (00:26→23:16)
[2017-10-04] MEDS: Ampicillin/Sulbactam Sod 3 GM in NS 110 ML IVPB SCH ×4 (00:27→18:02)
[2017-10-04] MEDS: Insulin NovoLOG Flexpen S/S (insulin sensitive) SUBQ SCH ×4 (00:35→18:00)
[2017-10-04 04:00] VITALS: BP 116/68
[2017-10-04] MEDS: HYDROmorphone 4mg tab ORAL PRN ×5 (04:13→22:05)
[2017-10-04] MEDS: Heparin 5000 units/ml inj SUBQ SCH ×2 (08:19→20:03)
[2017-10-04] MEDS: Pantoprazole Inj IVP SCH (08:19)
[2017-10-04] MEDS: Docusate Sod/Senna tab ORAL SCH ×2 (08:19→18:02)
[2017-10-04 08:35] VITALS: BP 104/69
--- NOTE | 2017-10-04 10:49 | GI Progress Note ---
Assessment/Plan Problems: (1) Perforation of cecum ICD Codes: K63.1 - Perforation of intestine (nontraumatic) SNOMED: 558476006 (2) Perforated sigmoid colon ICD Codes: K63.1 - Perforation of intestine (nontraumatic) SNOMED: 770463962 (3) Intra-abdominal free air of unknown etiology ICD Codes: K66.8 - Other specified disorders of peritoneum SNOMED: 61744915 (4) Abdominal pain ICD Codes: R10.9 - Unspecified abdominal pain SNOMED: 78783813 Qualifiers: Qualified Codes: R10.13 - Epigastric pain (5) GI bleed ICD Codes: K92.2 - Gastrointestinal hemorrhage, unspecified SNOMED: 74687727 Qualifiers: Qualified Codes: K92.2 - Gastrointestinal hemorrhage, unspecified (6) Anemia ICD Codes: D64.9 - Anemia, unspecified SNOMED: 977777207 Qualifiers: Qualified Codes: D64.9 - Anemia, unspecified Status: progressing Status Narrative Discussed with Dr. Jordan. Assessment/Plan post op care fu surgical recs PO diet per surgery TPN >> will taper once patient begins tolerate PO - pt has no appetite, will order Marinol TID calorie count ordered electrolyte correction PT evaluation pain control fu labs Subjective Subjective hungry generalized weakness feels better has no appetite poor PO intake Objective Last 24 Hour Vital Signs Date Time Temp Pulse Resp B/P (MAP) Pulse Ox O2 Delivery O2 Flow Rate FiO2 10/04/17 09:17 98.4 10/04/17 08:35 98.4 105 20 104/69 100 10/04/17 04:00 97.3 98 19 116/68 100 10/04/17 00:00 97 Room Air 10/04/17 00:00 97.5 116 19 100/76 97 10/03/17 20:00 97.7 108 19 108/66 98 10/03/17 20:00 98 Room Air 10/03/17 18:32 97.9 10/03/17 16:06 97.9 110 20 101/76 95 Room Air 10/03/17 12:00 97.8 114 20 112/71 98 Intake and Output 10/03/17 10/04/17 19:00 07:00 Intake Total 1340 ml 935 ml Balance 1340 ml 935 ml Intake Oral 360 ml IV Total 980 ml 935 ml # Voids 9 3 # Bowel Movements 1 Height (Feet): 5 Height (Inches): 3.00 Weight (Pounds): 72 General Appearance: WD/WN, no apparent distress, alert, thin Cardiovascular: normal rate Respiratory/Chest: normal breath sounds, no respiratory distress Abdominal Exam: normal bowel sounds, non tender, soft, other - colostomy Cece Gerard N.P. Oct 04, 2017 10:49
[2017-10-04 12:04] VITALS: BP 106/69
[2017-10-04 12:13] LABS: HEMATOCRIT 33.6 % (37.0-47.0); HEMOGLOBIN 11.8 G/DL (12.0-16.0); MEAN CORPUSCULAR VOLUME 86 FL (80-99); PLATELET COUNT 245 K/UL (150-450); RED BLOOD COUNT 3.93 M/UL (4.20-5.40); RED CELL DISTRIBUTION WIDTH 16.8 % (11.6-14.8); WHITE BLOOD COUNT 17.7 K/UL (4.8-10.8)
--- NOTE | 2017-10-04 12:18 | Infectious Diseases Prog Note ---
Assessment/Plan Assessment/Plan A; Perforated bowel Peritonitis with E. coli, Enterococcus, C. albicans & Prevotella Cervical cancer, metastatic P: continue Unasyn & Fluconazole in hospital At time of discharge PO Fluconazole & Augmentin X 7 days Poor prognosis, consider hospice Subjective ROS Limited/Unobtainable: No Constitutional: Reports: anorexia Gastrointestinal/Abdominal: Reports: other - pain Allergies: Coded Allergies: No Known Allergies (Unverified , 09/10/17) Objective Vital Signs Last 24 Hour Vital Signs Date Time Temp Pulse Resp B/P (MAP) Pulse Ox O2 Delivery O2 Flow Rate FiO2 10/04/17 12:04 98.2 109 19 106/69 99 10/04/17 09:17 98.4 10/04/17 08:35 98.4 105 20 104/69 100 10/04/17 04:00 97.3 98 19 116/68 100 10/04/17 00:00 97 Room Air 10/04/17 00:00 97.5 116 19 100/76 97 10/03/17 20:00 97.7 108 19 108/66 98 10/03/17 20:00 98 Room Air 10/03/17 18:32 97.9 10/03/17 16:06 97.9 110 20 101/76 95 Room Air Height (Feet): 5 Height (Inches): 3.00 Weight (Pounds): 72 General Appearance: cachetic HEENT: mucous membranes moist Respiratory/Chest: lungs clear Cardiovascular: tachycardia Abdomen: other - s/p colostomy Extremities: no edema Neurologic/Psychiatric: alert, oriented x 3, responsive Laboratory Tests Test 10/04/17 11:40 White Blood Count Pending Red Blood Count Pending Hemoglobin Pending Hematocrit Pending Mean Corpuscular Volume Pending Mean Corpuscular Hemoglobin Pending Mean Corpuscular Hemoglobin Concent Pending Red Cell Distribution Width Pending Platelet Count Pending Mean Platelet Volume Pending Neutrophils (%) (Auto) Pending Lymphocytes (%) (Auto) Pending Monocytes (%) (Auto) Pending Eosinophils (%) (Auto) Pending Basophils (%) (Auto) Pending Sodium Level Pending Potassium Level Pending Chloride Level Pending Carbon Dioxide Level Pending Blood Urea Nitrogen Pending Creatinine Pending Estimat Glomerular Filtration Rate Pending Glucose Level Pending Calcium Level Pending Phosphorus Level Pending Magnesium Level Pending Current Medications Medications (Trade) Dose Ordered Sig/Francoise Route PRN Reason Start Time Stop Time Status Last Admin Dose Admin Acetaminophen (Tylenol) 650 mg Q4H PRN RECTAL FEVER 09/25/17 16:30 10/22/17 16:29 Ampicillin Sodium/ Sulbactam Sodium 3 gm/Sodium Chloride 110 ml @ 220 mls/hr Q6HR IVPB 10/01/17 12:00 10/08/17 11:59 10/04/17 05:35 Chlorhexidine Gluconate (Kenia-Hex 2%) 1 applic DAILY@2000 TOPIC 09/25/17 20:00 10/24/17 19:59 10/03/17 21:33 Dextrose (Dextrose 50%) No Dose PRN IV hypoglycemia 09/28/17 00:00 10/28/17 00:00 Dronabinol (Marinol) 2.5 mg TID ORAL 10/04/17 13:00 11/03/17 12:59 Fat Emulsion Intravenous 168 ml/Amino Acids/ Electrolytes/ Dextrose 1,200 ml @ 50 mls/hr Q24H IV 10/04/17 20:00 11/03/17 19:59 Fat Emulsion Intravenous 168 ml/Amino Acids/ Electrolytes/ Dextrose 1,320 ml @ 55 mls/hr Q24H IV 09/28/17 20:00 10/04/17 19:59 10/03/17 21:35 Fluconazole/ Sodium Chloride 100 ml @ 100 mls/hr Q24H IV 09/27/17 18:00 10/04/17 17:59 10/03/17 17:10 Gabapentin (Neurontin) 100 mg THREE TIMES A DAY ORAL 10/01/17 15:00 10/31/17 14:59 10/04/17 08:18 Heparin Sodium (Porcine) (Heparin 5000 units/ml) 5,000 units EVERY 12 HOURS SUBQ 09/25/17 21:00 10/23/17 08:59 10/04/17 08:19 Hydromorphone HCl (Dilaudid) 1 mg Q6H PRN IVP Severe Breakthru Pain (>7) 10/03/17 09:30 10/10/17 09:29 10/04/17 06:38 Hydromorphone HCl (Dilaudid) 4 mg Q4H PRN ORAL Severe Pain (Pain Scale 7-10) 10/03/17 09:30 10/10/17 09:29 10/04/17 08:18 Insulin Aspart (NovoLOG) No Dose Q6HR SUBQ 09/28/17 00:00 10/28/17 00:00 10/04/17 05:37 Ondansetron HCl (Zofran) 4 mg Q6H PRN IVP Nausea & Vomiting 09/25/17 16:30 10/22/17 16:29 Pantoprazole (Protonix) 40 mg DAILY IVP 09/26/17 09:00 10/23/17 08:59 10/04/17 08:19 Phytonadione (Vitamin K) 10 mg QWEEK SUBQ 09/27/17 20:00 10/27/17 19:59 09/27/17 21:36 Povidone Iodine (Betadine Annamaria) 1 applic DAILY@2100 TOPIC 10/02/17 21:00 11/01/17 20:59 10/03/17 21:33 Senna/Docusate Sodium (Jinny-Colace) 1 tab TWICE A DAY ORAL 09/29/17 18:00 10/29/17 17:59 10/04/17 08:19 Zolpidem Tartrate (Ambien) 5 mg HSPRN PRN ORAL Insomnia 10/03/17 09:30 10/10/17 09:29 10/03/17 22:56 CHERYLE WOLFE Oct 04, 2017 12:18
[2017-10-04 12:29] LABS: ANION GAP 6 mmol/L (5-15); BLOOD UREA NITROGEN 9 mg/dL (7-18); CALCIUM 9.4 MG/DL (8.5-10.1); CARBON DIOXIDE 29 MMOL/L (21-32); CHLORIDE 96 MMOL/L (98-107); CREATININE 0.4 MG/DL (0.55-1.30); PHOSPHORUS 4.1 MG/DL (2.5-4.9); POTASSIUM 4.6 MMOL/L (3.5-5.1); SODIUM 131 MMOL/L (136-145)
[2017-10-04] MEDS: Dronabinol 2.5mg Cap ORAL SCH ×2 (12:36→18:02)
--- NOTE | 2017-10-04 12:43 | General Surgery Progress Note ---
General Surgery-Progress Note Subjective Symptoms: BM Objective Last 24 Hour Vital Signs Date Time Temp Pulse Resp B/P (MAP) Pulse Ox O2 Delivery O2 Flow Rate FiO2 10/04/17 12:04 98.2 109 19 106/69 99 10/04/17 09:17 98.4 10/04/17 08:35 98.4 105 20 104/69 100 10/04/17 04:00 97.3 98 19 116/68 100 10/04/17 00:00 97 Room Air 10/04/17 00:00 97.5 116 19 100/76 97 10/03/17 20:00 97.7 108 19 108/66 98 10/03/17 20:00 98 Room Air 10/03/17 18:32 97.9 10/03/17 16:06 97.9 110 20 101/76 95 Room Air I&O Intake and Output 10/03/17 10/04/17 19:00 07:00 Intake Total 1340 ml 935 ml Balance 1340 ml 935 ml Intake Oral 360 ml IV Total 980 ml 935 ml # Voids 9 3 # Bowel Movements 1 Wound: other - packing Drains: none Respiratory: clear Abdomen: soft, flat, non-tender, present bowel sounds Extremities: no tenderness Laboratory Tests Test 10/04/17 11:40 White Blood Count 17.7 K/UL (4.8-10.8) H Red Blood Count 3.93 M/UL (4.20-5.40) L Hemoglobin 11.8 G/DL (12.0-16.0) L Hematocrit 33.6 % (37.0-47.0) L Mean Corpuscular Volume 86 FL (80-99) Mean Corpuscular Hemoglobin 30.0 PG (27.0-31.0) Mean Corpuscular Hemoglobin Concent 35.0 G/DL (32.0-36.0) Red Cell Distribution Width 16.8 % (11.6-14.8) H Platelet Count 245 K/UL (150-450) Mean Platelet Volume 7.4 FL (6.5-10.1) Neutrophils (%) (Auto) % (45.0-75.0) Lymphocytes (%) (Auto) % (20.0-45.0) Monocytes (%) (Auto) % (1.0-10.0) Eosinophils (%) (Auto) % (0.0-3.0) Basophils (%) (Auto) % (0.0-2.0) Differential Total Cells Counted 100 Neutrophils % (Manual) 90 % (45-75) H Lymphocytes % (Manual) 8 % (20-45) L Monocytes % (Manual) 0 % (1-10) L Eosinophils % (Manual) 1 % (0-3) Basophils % (Manual) 1 % (0-2) Band Neutrophils 0 % (0-8) Platelet Estimate Adequate Platelet Morphology Normal Sodium Level 131 MMOL/L (136-145) L Potassium Level 4.6 MMOL/L (3.5-5.1) Chloride Level 96 MMOL/L (98-107) L Carbon Dioxide Level 29 MMOL/L (21-32) Anion Gap 6 mmol/L (5-15) Blood Urea Nitrogen 9 mg/dL (7-18) Creatinine 0.4 MG/DL (0.55-1.30) L Estimat Glomerular Filtration Rate > 60 mL/min (>60) Glucose Level 121 MG/DL (74-106) H Calcium Level 9.4 MG/DL (8.5-10.1) Phosphorus Level 4.1 MG/DL (2.5-4.9) Magnesium Level 1.9 MG/DL (1.8-2.4) Assessment Post-op Diagnosis perforation of cecum and recto-sigmoid Plan Additional Comments continue antibiotics DWAYNE OLIVER Oct 04, 2017 12:43
[2017-10-04] MEDS: Fluconazole 100mg tab ORAL SCH (13:31)
--- NOTE | 2017-10-04 13:32 | General Progress Note ---
Assessment/Plan Problem List: (1) Anemia ICD Codes: D64.9 - Anemia, unspecified SNOMED: 653700917 Qualifiers: Qualified Codes: D64.9 - Anemia, unspecified (2) GI bleed ICD Codes: K92.2 - Gastrointestinal hemorrhage, unspecified SNOMED: 40893859 Qualifiers: Qualified Codes: K92.2 - Gastrointestinal hemorrhage, unspecified (3) Abdominal pain ICD Codes: R10.9 - Unspecified abdominal pain SNOMED: 23167986 Qualifiers: Qualified Codes: R10.13 - Epigastric pain Status: unchanged Assessment/Plan ot pt diet cbc bmp am gi f/u id eval dc plan Subjective Constitutional: Reports: weakness Allergies: Coded Allergies: No Known Allergies (Unverified , 09/10/17) All Systems: reviewed and negative except above Subjective sl nauseus Objective Last 24 Hour Vital Signs Date Time Temp Pulse Resp B/P (MAP) Pulse Ox O2 Delivery O2 Flow Rate FiO2 10/04/17 13:01 98.2 10/04/17 12:04 98.2 109 19 106/69 99 10/04/17 09:17 98.4 10/04/17 08:35 98.4 105 20 104/69 100 10/04/17 04:00 97.3 98 19 116/68 100 10/04/17 00:00 97 Room Air 10/04/17 00:00 97.5 116 19 100/76 97 10/03/17 20:00 97.7 108 19 108/66 98 10/03/17 20:00 98 Room Air 10/03/17 16:06 97.9 110 20 101/76 95 Room Air Intake and Output 10/03/17 10/04/17 19:00 07:00 Intake Total 1340 ml 935 ml Balance 1340 ml 935 ml Intake Oral 360 ml IV Total 980 ml 935 ml # Voids 9 3 # Bowel Movements 1 Laboratory Tests 10/04/17 11:40: White Blood Count 17.7H, Red Blood Count 3.93L, Hemoglobin 11.8L, Hematocrit 33.6L, Mean Corpuscular Volume 86, Mean Corpuscular Hemoglobin 30.0, Mean Corpuscular Hemoglobin Concent 35.0, Red Cell Distribution Width 16.8H, Platelet Count 245, Mean Platelet Volume 7.4, Neutrophils (%) (Auto) , Lymphocytes (%) (Auto) , Monocytes (%) (Auto) , Eosinophils (%) (Auto) , Basophils (%) (Auto) , Differential Total Cells Counted 100, Neutrophils % ( Manual) 90H, Lymphocytes % (Manual) 8L, Monocytes % (Manual) 0L, Eosinophils % ( Manual) 1, Basophils % (Manual) 1, Band Neutrophils 0, Platelet Estimate Adequate, Platelet Morphology Normal, Sodium Level 131L, Potassium Level 4.6, Chloride Level 96L, Carbon Dioxide Level 29, Anion Gap 6, Blood Urea Nitrogen 9 , Creatinine 0.4L, Estimat Glomerular Filtration Rate > 60, Glucose Level 121H, Calcium Level 9.4, Phosphorus Level 4.1, Magnesium Level 1.9 Height (Feet): 5 Height (Inches): 3.00 Weight (Pounds): 72 General Appearance: lethargic EENT: normal ENT inspection Neck: normal alignment Cardiovascular: normal peripheral pulses, normal rate, regular rhythm Respiratory/Chest: chest wall non-tender, lungs clear, normal breath sounds Abdomen: normal bowel sounds, non tender, soft Extremities: normal inspection Edema: no edema noted Arm (L), no edema noted Arm (R), no edema noted Leg (L), no edema noted Leg (R), no edema noted Pedal (L), no edema noted Pedal (R), no edema noted Generalized Neurologic: responsive, motor weakness Skin: normal pigmentation, warm/dry SONIDO FELICIANO Oct 04, 2017 13:32
[2017-10-04 15:52] VITALS: BP 99/70
--- NOTE | 2017-10-04 16:51 | Nephrology Progress Note ---
Assessment/Plan Assessment 1. Acute renal failure 2. Hyponatremia worse 3. Malnutrition. 4. hyperkalemia. 5. Dehydration. 6. History of cervical cancer. Plan plan adjust TPN mix all ivpb with ns .9 monitoring renal function avoid NSAID replace electrolyte as need it Subjective Constitutional: Reports: malaise, weakness HEENT: Reports: no symptoms Genitourinary: Reports: no symptoms Neurologic/Psychiatric: Reports: no symptoms Subjective alert and awake no complaints Objective Objective Last 24 Hour Vital Signs Date Time Temp Pulse Resp B/P (MAP) Pulse Ox O2 Delivery O2 Flow Rate FiO2 10/04/17 15:52 98.0 109 20 99/70 97 10/04/17 14:30 98.2 10/04/17 13:01 98.2 10/04/17 12:04 98.2 109 19 106/69 99 10/04/17 08:35 98.4 105 20 104/69 100 10/04/17 04:00 97.3 98 19 116/68 100 10/04/17 00:00 97 Room Air 10/04/17 00:00 97.5 116 19 100/76 97 10/03/17 20:00 97.7 108 19 108/66 98 10/03/17 20:00 98 Room Air Intake and Output 10/03/17 10/04/17 18:59 06:59 Intake Total 1340 ml 990 ml Balance 1340 ml 990 ml Intake Oral 360 ml IV Total 980 ml 990 ml # Voids 6 6 # Bowel Movements 1 Laboratory Tests 10/04/17 11:40: White Blood Count 17.7H, Red Blood Count 3.93L, Hemoglobin 11.8L, Hematocrit 33.6L, Mean Corpuscular Volume 86, Mean Corpuscular Hemoglobin 30.0, Mean Corpuscular Hemoglobin Concent 35.0, Red Cell Distribution Width 16.8H, Platelet Count 245, Mean Platelet Volume 7.4, Neutrophils (%) (Auto) , Lymphocytes (%) (Auto) , Monocytes (%) (Auto) , Eosinophils (%) (Auto) , Basophils (%) (Auto) , Differential Total Cells Counted 100, Neutrophils % ( Manual) 90H, Lymphocytes % (Manual) 8L, Monocytes % (Manual) 0L, Eosinophils % ( Manual) 1, Basophils % (Manual) 1, Band Neutrophils 0, Platelet Estimate Adequate, Platelet Morphology Normal, Sodium Level 131L, Potassium Level 4.6, Chloride Level 96L, Carbon Dioxide Level 29, Anion Gap 6, Blood Urea Nitrogen 9 , Creatinine 0.4L, Estimat Glomerular Filtration Rate > 60, Glucose Level 121H, Calcium Level 9.4, Phosphorus Level 4.1, Magnesium Level 1.9 Height (Feet): 5 Height (Inches): 3.00 Weight (Pounds): 72 Objective HEAD AND NECK: No JVP. No LAD. No thyromegaly. Extraocular movement intact. Pupils are reactive to light and accommodation. LUNGS: Decreased breathing sounds. CARDIAC: Regular rate and rhythm. S1 and S2. No murmur. No rub. ABDOMEN: Distended. Bowel sounds are positive. Diffuse tenderness. No guarding. No rebound. EXTREMITIES: A 1+ to 2+ edema. No clubbing. No cyanosis. NEUROLOGIC: Cranial nerves II through XII within normal limits. Upper and lower extremities are grossly intact. LORRAINE GROVER Oct 04, 2017 16:51
--- NOTE | 2017-10-04 17:17 | Pulmonology Progress Note ---
Assessment/Plan Problems: (1) Intra-abdominal free air of unknown etiology (2) Perforated sigmoid colon (3) Sepsis Assessment/Plan diflucan started adjust pain meds/ no new complains all reviewed pain management check electroltyes. advance feeding as tolerated, tolerating well Subjective ROS Limited/Unobtainable: No Constitutional: Reports: no symptoms HEENT: Repors: no symptoms Allergies: Coded Allergies: No Known Allergies (Unverified , 09/10/17) Objective Last 24 Hour Vital Signs Date Time Temp Pulse Resp B/P (MAP) Pulse Ox O2 Delivery O2 Flow Rate FiO2 10/04/17 15:52 98.0 109 20 99/70 97 10/04/17 14:30 98.2 10/04/17 13:01 98.2 10/04/17 12:04 98.2 109 19 106/69 99 10/04/17 08:35 98.4 105 20 104/69 100 10/04/17 04:00 97.3 98 19 116/68 100 10/04/17 00:00 97 Room Air 10/04/17 00:00 97.5 116 19 100/76 97 10/03/17 20:00 97.7 108 19 108/66 98 10/03/17 20:00 98 Room Air Intake and Output 10/03/17 10/04/17 19:00 07:00 Intake Total 1340 ml 935 ml Balance 1340 ml 935 ml Intake Oral 360 ml IV Total 980 ml 935 ml # Voids 9 3 # Bowel Movements 1 Objective General Appearance: WD/WN, no apparent distress, ON tpn, NGtube in place HEENT: normocephalic, atraumatic Neck: non-tender, normal alignment Respiratory/Chest: chest wall non-tender, lungs clear Breasts: no masses Cardiovascular/Chest: normal rate Abdomen: normal bowel sounds, no organomegaly Genitourinary/Rectal: normal genital exam Extremities: normal range of motion Laboratory Tests 10/04/17 11:40: White Blood Count 17.7H, Red Blood Count 3.93L, Hemoglobin 11.8L, Hematocrit 33.6L, Mean Corpuscular Volume 86, Mean Corpuscular Hemoglobin 30.0, Mean Corpuscular Hemoglobin Concent 35.0, Red Cell Distribution Width 16.8H, Platelet Count 245, Mean Platelet Volume 7.4, Neutrophils (%) (Auto) , Lymphocytes (%) (Auto) , Monocytes (%) (Auto) , Eosinophils (%) (Auto) , Basophils (%) (Auto) , Differential Total Cells Counted 100, Neutrophils % ( Manual) 90H, Lymphocytes % (Manual) 8L, Monocytes % (Manual) 0L, Eosinophils % ( Manual) 1, Basophils % (Manual) 1, Band Neutrophils 0, Platelet Estimate Adequate, Platelet Morphology Normal, Sodium Level 131L, Potassium Level 4.6, Chloride Level 96L, Carbon Dioxide Level 29, Anion Gap 6, Blood Urea Nitrogen 9 , Creatinine 0.4L, Estimat Glomerular Filtration Rate > 60, Glucose Level 121H, Calcium Level 9.4, Phosphorus Level 4.1, Magnesium Level 1.9 Current Medications Medications (Trade) Dose Ordered Sig/Francoise Route PRN Reason Start Time Stop Time Status Last Admin Dose Admin Acetaminophen (Tylenol) 650 mg Q4H PRN RECTAL FEVER 09/25/17 16:30 10/22/17 16:29 Ampicillin Sodium/ Sulbactam Sodium 3 gm/Sodium Chloride 110 ml @ 220 mls/hr Q6HR IVPB 10/01/17 12:00 10/08/17 11:59 10/04/17 12:31 Chlorhexidine Gluconate (Kenia-Hex 2%) 1 applic DAILY@2000 TOPIC 09/25/17 20:00 10/24/17 19:59 10/03/17 21:33 Dextrose (Dextrose 50%) No Dose PRN IV hypoglycemia 09/28/17 00:00 10/28/17 00:00 Dronabinol (Marinol) 2.5 mg TID ORAL 10/04/17 13:00 11/03/17 12:59 10/04/17 12:36 Fat Emulsion Intravenous 168 ml/Amino Acids/ Electrolytes/ Dextrose 1,200 ml @ 50 mls/hr Q24H IV 10/04/17 20:00 11/03/17 19:59 Fat Emulsion Intravenous 168 ml/Amino Acids/ Electrolytes/ Dextrose 1,320 ml @ 55 mls/hr Q24H IV 09/28/17 20:00 10/04/17 19:59 10/03/17 21:35 Fluconazole (Diflucan) 200 mg DAILY ORAL 10/04/17 14:00 10/11/17 13:59 10/04/17 13:31 Gabapentin (Neurontin) 100 mg THREE TIMES A DAY ORAL 10/01/17 15:00 10/31/17 14:59 10/04/17 12:30 Heparin Sodium (Porcine) (Heparin 5000 units/ml) 5,000 units EVERY 12 HOURS SUBQ 09/25/17 21:00 10/23/17 08:59 10/04/17 08:19 Hydromorphone HCl (Dilaudid) 1 mg Q4H PRN IVP Severe Breakthru Pain (>7) 10/04/17 16:30 10/10/17 16:29 Hydromorphone HCl (Dilaudid) 4 mg Q4H PRN ORAL Severe Pain (Pain Scale 7-10) 10/03/17 09:30 10/10/17 09:29 10/04/17 13:31 Insulin Aspart (NovoLOG) No Dose Q6HR SUBQ 09/28/17 00:00 10/28/17 00:00 10/04/17 05:37 Ondansetron HCl (Zofran) 4 mg Q6H PRN IVP Nausea & Vomiting 09/25/17 16:30 10/22/17 16:29 Pantoprazole (Protonix) 40 mg DAILY IVP 09/26/17 09:00 10/23/17 08:59 10/04/17 08:19 Phytonadione (Vitamin K) 10 mg QWEEK SUBQ 09/27/17 20:00 10/27/17 19:59 09/27/17 21:36 Povidone Iodine (Betadine Annamaria) 1 applic DAILY@2100 TOPIC 10/02/17 21:00 11/01/17 20:59 10/03/17 21:33 Senna/Docusate Sodium (Jinny-Colace) 1 tab TWICE A DAY ORAL 09/29/17 18:00 10/29/17 17:59 10/04/17 08:19 Zolpidem Tartrate (Ambien) 5 mg HSPRN PRN ORAL Insomnia 10/03/17 09:30 10/10/17 09:29 10/03/17 22:56 JL CHAVEZ Oct 04, 2017 17:17
--- NOTE | 2017-10-04 17:55 | Cardiology Report ---
APPROVED REPORT EKG Measurement Heart [id number] Suspect arm lead reversal, interpretation assumes no reversal Sinus tachycardia Possible Left atrial enlargement Rightward axis Nonspecific ST and T wave abnormality Abnormal ECG
[2017-10-04 20:00] VITALS: BP 94/62
[2017-10-04] MEDS ORDERED: TPN IV SCH ×4 (20:00)
[2017-10-04] MEDS ORDERED: FAT EMULSION 20% IV SCH ×4 (20:00)
[2017-10-04] MEDS: Dyna-Hex 2% Top Sol 2oz TOPIC SCH (20:02)
[2017-10-04] MEDS: Phytonadione 10 mg/mL 1ml amp SUBQ SCH (20:02)
[2017-10-04] MEDS: Betadine 4oz Bottle TOPIC SCH (20:02)
--- NOTE | 2017-10-04 21:19 | General Progress Note ---
Assessment/Plan Status: stable Assessment/Plan # Leukocytosis is likely reactive from Acute abdominal pain 2 to perforation with perforated cecum and rectosigmoid s/p exp laparotomy with partial R hemicolectomy --> improving on abx. Remains high. --> On pain control for abd pain. --> continue to closely monitor. # Anemia of chronic disease --> w/u has been reviewed --> Blood transfusion not required unless symptomatic or hgb <7 --> Has not required blood transfusion as hgb >8 # Cervical Ca s/p surgery and radiation, has not received any chemotherapy recently --> Monitor. # Thrombocytosis is likely related to chronic reactive process --> resolved # Anemia of GI bleeding --> GI followup. # Severe protein calorie malnutrition Subjective Date patient seen: Oct 04, 2017 Constitutional: Denies: no symptoms, chills, diaphoresis, fever, malaise, weakness, other HEENT: Denies: no symptoms, eye pain, blurred vision, tearing, double vision, ear pain, ear discharge, nose pain, nose congestion, throat pain, throat swelling, mouth pain, mouth swelling, other Cardiovascular: Denies: no symptoms, chest pain, edema, irregular heart rate, lightheadedness, palpitations, syncope, other Respiratory: Denies: no symptoms, cough, orthopnea, shortness of breath, SOB with excertion, SOB at rest, sputum, stridor, wheezing, other Gastrointestinal/Abdominal: Denies: no symptoms, abdomen distended, abdominal pain, black stools, tarry stools, blood in stool, constipated, diarrhea, difficulty swallowing, nausea, poor appetite, poor fluid intake, rectal bleeding , vomiting, other Genitourinary: Denies: no symptoms, burning, discharge, frequency, flank pain, hematuria, incontinence, pain, urgency, other Hematologic/Lymphatic: Reports: anemia Allergies: Coded Allergies: No Known Allergies (Unverified , 09/10/17) Subjective Leukocytosis remains. No major events. Resting in bed. Objective Last 24 Hour Vital Signs Date Time Temp Pulse Resp B/P (MAP) Pulse Ox O2 Delivery O2 Flow Rate FiO2 10/04/17 20:00 97.7 102 18 94/62 99 Room Air 10/04/17 19:02 98.0 10/04/17 19:02 98.0 10/04/17 15:52 98.0 109 20 99/70 97 10/04/17 13:01 98.2 10/04/17 12:04 98.2 109 19 106/69 99 10/04/17 08:35 98.4 105 20 104/69 100 10/04/17 04:00 97.3 98 19 116/68 100 10/04/17 00:00 97 Room Air 10/04/17 00:00 97.5 116 19 100/76 97 Intake and Output 10/03/17 10/04/17 19:00 07:00 Intake Total 1340 ml 935 ml Balance 1340 ml 935 ml Intake Oral 360 ml IV Total 980 ml 935 ml # Voids 9 3 # Bowel Movements 1 Laboratory Tests 10/04/17 11:40: White Blood Count 17.7H, Red Blood Count 3.93L, Hemoglobin 11.8L, Hematocrit 33.6L, Mean Corpuscular Volume 86, Mean Corpuscular Hemoglobin 30.0, Mean Corpuscular Hemoglobin Concent 35.0, Red Cell Distribution Width 16.8H, Platelet Count 245, Mean Platelet Volume 7.4, Neutrophils (%) (Auto) , Lymphocytes (%) (Auto) , Monocytes (%) (Auto) , Eosinophils (%) (Auto) , Basophils (%) (Auto) , Differential Total Cells Counted 100, Neutrophils % ( Manual) 90H, Lymphocytes % (Manual) 8L, Monocytes % (Manual) 0L, Eosinophils % ( Manual) 1, Basophils % (Manual) 1, Band Neutrophils 0, Platelet Estimate Adequate, Platelet Morphology Normal, Sodium Level 131L, Potassium Level 4.6, Chloride Level 96L, Carbon Dioxide Level 29, Anion Gap 6, Blood Urea Nitrogen 9 , Creatinine 0.4L, Estimat Glomerular Filtration Rate > 60, Glucose Level 121H, Calcium Level 9.4, Phosphorus Level 4.1, Magnesium Level 1.9 Height (Feet): 5 Height (Inches): 3.00 Weight (Pounds): 72 General Appearance: no apparent distress EENT: normal ENT inspection Cardiovascular: normal rate Respiratory/Chest: decreased breath sounds Abdomen: non tender, soft Skin: warm/dry Chris Spencer Oct 04, 2017 21:19
[2017-10-04] MEDS: Zolpidem 5mg tab ORAL PRN (23:16)
[2017-10-05] VITALS: BP 114/73
[2017-10-05] MEDS: Ampicillin/Sulbactam Sod 3 GM in NS 110 ML IVPB SCH ×4 (00:36→18:37)
[2017-10-05] MEDS: HYDROmorphone 4mg tab ORAL PRN ×6 (02:21→23:39)
[2017-10-05 04:00] VITALS: BP 110/71
[2017-10-05] MEDS: Hydromorphone 0.5mg/0.5ml inj IVP PRN ×3 (04:10→11:56)
[2017-10-05] MEDS: Insulin NovoLOG Flexpen S/S (insulin sensitive) SUBQ SCH ×2 (05:43)
[2017-10-05 08:00] VITALS: BP 100/73
--- NOTE | 2017-10-05 08:42 | Nephrology Progress Note ---
Assessment/Plan Assessment 1. Acute renal failure 2. Hyponatremia worse spoke to pharmacist increased NA to 90 3. Malnutrition. 4. hyperkalemia.resolved 5. Dehydration. 6. History of cervical cancer. Plan plan adjust TPN mix all ivpb with ns .9 monitoring renal function avoid NSAID replace electrolyte as need it Subjective Constitutional: Reports: no symptoms, malaise, weakness HEENT: Reports: no symptoms Genitourinary: Reports: no symptoms Neurologic/Psychiatric: Reports: no symptoms Subjective alert and awake no acute events Objective Objective Last 24 Hour Vital Signs Date Time Temp Pulse Resp B/P (MAP) Pulse Ox O2 Delivery O2 Flow Rate FiO2 10/05/17 07:24 97.6 10/05/17 04:00 97.5 116 18 110/71 98 10/05/17 04:00 98 Room Air 10/05/17 04:00 98 Room Air 10/05/17 00:00 98 Room Air 10/05/17 00:00 97.6 105 18 114/73 95 Room Air 10/04/17 20:00 99 Room Air 10/04/17 20:00 97.7 102 18 94/62 99 Room Air 10/04/17 19:02 98.0 10/04/17 15:52 98.0 109 20 99/70 97 10/04/17 13:01 98.2 10/04/17 12:04 98.2 109 19 106/69 99 Intake and Output 10/04/17 10/05/17 19:00 07:00 Intake Total 1330 ml 820 ml Output Total 500 ml Balance 830 ml 820 ml Intake Oral 450 ml 150 ml IV Total 880 ml 670 ml Output Urine Total 500 ml # Voids 3 Laboratory Tests 10/04/17 11:40: White Blood Count 17.7H, Red Blood Count 3.93L, Hemoglobin 11.8L, Hematocrit 33.6L, Mean Corpuscular Volume 86, Mean Corpuscular Hemoglobin 30.0, Mean Corpuscular Hemoglobin Concent 35.0, Red Cell Distribution Width 16.8H, Platelet Count 245, Mean Platelet Volume 7.4, Neutrophils (%) (Auto) , Lymphocytes (%) (Auto) , Monocytes (%) (Auto) , Eosinophils (%) (Auto) , Basophils (%) (Auto) , Differential Total Cells Counted 100, Neutrophils % ( Manual) 90H, Lymphocytes % (Manual) 8L, Monocytes % (Manual) 0L, Eosinophils % ( Manual) 1, Basophils % (Manual) 1, Band Neutrophils 0, Platelet Estimate Adequate, Platelet Morphology Normal, Sodium Level 131L, Potassium Level 4.6, Chloride Level 96L, Carbon Dioxide Level 29, Anion Gap 6, Blood Urea Nitrogen 9 , Creatinine 0.4L, Estimat Glomerular Filtration Rate > 60, Glucose Level 121H, Calcium Level 9.4, Phosphorus Level 4.1, Magnesium Level 1.9 10/05/17 08:00: White Blood Count [Pending], Red Blood Count [Pending], Hemoglobin [Pending], Hematocrit [Pending], Mean Corpuscular Volume [Pending], Mean Corpuscular Hemoglobin [Pending], Mean Corpuscular Hemoglobin Concent [Pending], Red Cell Distribution Width [Pending], Platelet Count [Pending], Mean Platelet Volume [ Pending], Neutrophils (%) (Auto) [Pending], Lymphocytes (%) (Auto) [Pending], Monocytes (%) (Auto) [Pending], Eosinophils (%) (Auto) [Pending], Basophils (%) (Auto) [Pending], Sodium Level [Pending], Potassium Level [Pending], Chloride Level [Pending], Carbon Dioxide Level [Pending], Blood Urea Nitrogen [Pending], Creatinine [Pending], Estimat Glomerular Filtration Rate [Pending], Glucose Level [Pending], Calcium Level [Pending] Height (Feet): 5 Height (Inches): 3.00 Weight (Pounds): 72 Objective HEAD AND NECK: No JVP. No LAD. No thyromegaly. Extraocular movement intact. Pupils are reactive to light and accommodation. LUNGS: Decreased breathing sounds. CARDIAC: Regular rate and rhythm. S1 and S2. No murmur. No rub. ABDOMEN: Distended. Bowel sounds are positive. Diffuse tenderness. No guarding. No rebound. EXTREMITIES: A 1+ to 2+ edema. No clubbing. No cyanosis. NEUROLOGIC: Cranial nerves II through XII within normal limits. Upper and lower extremities are grossly intact. LORRAINE GROVER Oct 05, 2017 08:42
[2017-10-05 08:45] LABS: HEMATOCRIT 33.7 % (37.0-47.0); HEMOGLOBIN 11.3 G/DL (12.0-16.0); MEAN CORPUSCULAR VOLUME 89 FL (80-99); PLATELET COUNT 280 K/UL (150-450); RED BLOOD COUNT 3.78 M/UL (4.20-5.40); RED CELL DISTRIBUTION WIDTH 16.4 % (11.6-14.8); WHITE BLOOD COUNT 15.1 K/UL (4.8-10.8)
[2017-10-05 09:17] LABS: ANION GAP 8 mmol/L (5-15); BLOOD UREA NITROGEN 11 mg/dL (7-18); CALCIUM 9.5 MG/DL (8.5-10.1); CARBON DIOXIDE 26 MMOL/L (21-32); CHLORIDE 98 MMOL/L (98-107); CREATININE 0.5 MG/DL (0.55-1.30); POTASSIUM 4.1 MMOL/L (3.5-5.1); SODIUM 132 MMOL/L (136-145)
[2017-10-05] MEDS: Dronabinol 2.5mg Cap ORAL SCH ×3 (09:18→17:59)
[2017-10-05] MEDS: Fluconazole 100mg tab ORAL SCH (09:18)
[2017-10-05] MEDS: Pantoprazole Inj IVP SCH (09:18)
[2017-10-05] MEDS: Heparin 5000 units/ml inj SUBQ SCH ×2 (09:20→21:17)
[2017-10-05] MEDS: Docusate Sod/Senna tab ORAL SCH ×2 (09:22→17:59)
--- NOTE | 2017-10-05 10:10 | GI Progress Note ---
Assessment/Plan Problems: (1) Perforation of cecum ICD Codes: K63.1 - Perforation of intestine (nontraumatic) SNOMED: 082171396 (2) Perforated sigmoid colon ICD Codes: K63.1 - Perforation of intestine (nontraumatic) SNOMED: 266982518 (3) Intra-abdominal free air of unknown etiology ICD Codes: K66.8 - Other specified disorders of peritoneum SNOMED: 25867097 (4) Abdominal pain ICD Codes: R10.9 - Unspecified abdominal pain SNOMED: 44289161 Qualifiers: Qualified Codes: R10.13 - Epigastric pain (5) GI bleed ICD Codes: K92.2 - Gastrointestinal hemorrhage, unspecified SNOMED: 04042313 Qualifiers: Qualified Codes: K92.2 - Gastrointestinal hemorrhage, unspecified (6) Anemia ICD Codes: D64.9 - Anemia, unspecified SNOMED: 790808451 Qualifiers: Qualified Codes: D64.9 - Anemia, unspecified Status: progressing Status Narrative Discussed with Dr. Jordan. Assessment/Plan post op care fu surgical recs PO diet per surgery TPN >> will taper once patient begins tolerate PO - cont Marinol calorie count ordered electrolyte correction PT evaluation pain control fu labs Subjective Subjective generalized weakness feels better has no appetite poor PO intake ambulating with PT today Objective Last 24 Hour Vital Signs Date Time Temp Pulse Resp B/P (MAP) Pulse Ox O2 Delivery O2 Flow Rate FiO2 10/05/17 08:37 97.6 10/05/17 08:00 97.6 111 20 100/73 100 10/05/17 07:24 97.6 10/05/17 04:00 97.5 116 18 110/71 98 10/05/17 04:00 98 Room Air 10/05/17 04:00 98 Room Air 10/05/17 00:00 98 Room Air 10/05/17 00:00 97.6 105 18 114/73 95 Room Air 10/04/17 20:00 99 Room Air 10/04/17 20:00 97.7 102 18 94/62 99 Room Air 10/04/17 15:52 98.0 109 20 99/70 97 10/04/17 13:01 98.2 10/04/17 12:04 98.2 109 19 106/69 99 Intake and Output 10/04/17 10/05/17 19:00 07:00 Intake Total 1330 ml 820 ml Output Total 500 ml Balance 830 ml 820 ml Intake Oral 450 ml 150 ml IV Total 880 ml 670 ml Output Urine Total 500 ml # Voids 3 Laboratory Tests Test 10/04/17 11:40 10/05/17 08:00 White Blood Count 17.7 K/UL (4.8-10.8) H 15.1 K/UL (4.8-10.8) H Red Blood Count 3.93 M/UL (4.20-5.40) L 3.78 M/UL (4.20-5.40) L Hemoglobin 11.8 G/DL (12.0-16.0) L 11.3 G/DL (12.0-16.0) L Hematocrit 33.6 % (37.0-47.0) L 33.7 % (37.0-47.0) L Mean Corpuscular Volume 86 FL (80-99) 89 FL (80-99) Mean Corpuscular Hemoglobin 30.0 PG (27.0-31.0) 29.9 PG (27.0-31.0) Mean Corpuscular Hemoglobin Concent 35.0 G/DL (32.0-36.0) 33.6 G/DL (32.0-36.0) Red Cell Distribution Width 16.8 % (11.6-14.8) H 16.4 % (11.6-14.8) H Platelet Count 245 K/UL (150-450) 280 K/UL (150-450) Mean Platelet Volume 7.4 FL (6.5-10.1) 8.0 FL (6.5-10.1) Neutrophils (%) (Auto) % (45.0-75.0) % (45.0-75.0) Lymphocytes (%) (Auto) % (20.0-45.0) % (20.0-45.0) Monocytes (%) (Auto) % (1.0-10.0) % (1.0-10.0) Eosinophils (%) (Auto) % (0.0-3.0) % (0.0-3.0) Basophils (%) (Auto) % (0.0-2.0) % (0.0-2.0) Differential Total Cells Counted 100 100 Neutrophils % (Manual) 90 % (45-75) H 84 % (45-75) H Lymphocytes % (Manual) 8 % (20-45) L 6 % (20-45) L Monocytes % (Manual) 0 % (1-10) L 9 % (1-10) Eosinophils % (Manual) 1 % (0-3) 1 % (0-3) Basophils % (Manual) 1 % (0-2) 0 % (0-2) Band Neutrophils 0 % (0-8) 0 % (0-8) Platelet Estimate Adequate Adequate Platelet Morphology Normal Normal Sodium Level 131 MMOL/L (136-145) L 132 MMOL/L (136-145) L Potassium Level 4.6 MMOL/L (3.5-5.1) 4.1 MMOL/L (3.5-5.1) Chloride Level 96 MMOL/L (98-107) L 98 MMOL/L (98-107) Carbon Dioxide Level 29 MMOL/L (21-32) 26 MMOL/L (21-32) Anion Gap 6 mmol/L (5-15) 8 mmol/L (5-15) Blood Urea Nitrogen 9 mg/dL (7-18) 11 mg/dL (7-18) Creatinine 0.4 MG/DL (0.55-1.30) L 0.5 MG/DL (0.55-1.30) L Estimat Glomerular Filtration Rate > 60 mL/min (>60) > 60 mL/min (>60) Glucose Level 121 MG/DL (74-106) H 125 MG/DL (74-106) H Calcium Level 9.4 MG/DL (8.5-10.1) 9.5 MG/DL (8.5-10.1) Phosphorus Level 4.1 MG/DL (2.5-4.9) Magnesium Level 1.9 MG/DL (1.8-2.4) Anisocytosis 1+ Height (Feet): 5 Height (Inches): 3.00 Weight (Pounds): 72 General Appearance: WD/WN, no apparent distress, alert, thin Cardiovascular: normal rate Respiratory/Chest: normal breath sounds, no respiratory distress Abdominal Exam: normal bowel sounds, non tender, soft Extremities: normal range of motion, non-tender GerardCece N.P. Oct 05, 2017 10:10
[2017-10-05] MEDS ORDERED: BusPIRone 10mg Tab ORAL SCH (10:30)
--- NOTE | 2017-10-05 11:51 | Cardiology Progress Note ---
Assessment/Plan Assessment/Plan 1. Sinus tachycardia, continue hydration. 2. Hypotension, resolved, continue hydration. 3. History of cervical cancer, status post chemotherapy. 4. s/p rectosigmoid resection, POD #13 with peritonitis. Subjective Subjective No cardiac events noted. No CP or SOB. Objective Last 24 Hour Vital Signs Date Time Temp Pulse Resp B/P (MAP) Pulse Ox O2 Delivery O2 Flow Rate FiO2 10/05/17 11:14 97.6 10/05/17 08:37 97.6 10/05/17 08:00 97.6 111 20 100/73 100 10/05/17 08:00 Room Air 10/05/17 04:00 97.5 116 18 110/71 98 10/05/17 04:00 98 Room Air 10/05/17 04:00 98 Room Air 10/05/17 00:00 98 Room Air 10/05/17 00:00 97.6 105 18 114/73 95 Room Air 10/04/17 20:00 99 Room Air 10/04/17 20:00 97.7 102 18 94/62 99 Room Air 10/04/17 15:52 98.0 109 20 99/70 97 10/04/17 13:01 98.2 10/04/17 12:04 98.2 109 19 106/69 99 Intake and Output 10/04/17 10/05/17 19:00 07:00 Intake Total 1330 ml 870 ml Output Total 500 ml Balance 830 ml 870 ml Intake Oral 450 ml 150 ml IV Total 880 ml 720 ml Output Urine Total 500 ml # Voids 3 Laboratory Tests Test 10/05/17 08:00 White Blood Count 15.1 K/UL (4.8-10.8) H Red Blood Count 3.78 M/UL (4.20-5.40) L Hemoglobin 11.3 G/DL (12.0-16.0) L Hematocrit 33.7 % (37.0-47.0) L Mean Corpuscular Volume 89 FL (80-99) Mean Corpuscular Hemoglobin 29.9 PG (27.0-31.0) Mean Corpuscular Hemoglobin Concent 33.6 G/DL (32.0-36.0) Red Cell Distribution Width 16.4 % (11.6-14.8) H Platelet Count 280 K/UL (150-450) Mean Platelet Volume 8.0 FL (6.5-10.1) Neutrophils (%) (Auto) % (45.0-75.0) Lymphocytes (%) (Auto) % (20.0-45.0) Monocytes (%) (Auto) % (1.0-10.0) Eosinophils (%) (Auto) % (0.0-3.0) Basophils (%) (Auto) % (0.0-2.0) Differential Total Cells Counted 100 Neutrophils % (Manual) 84 % (45-75) H Lymphocytes % (Manual) 6 % (20-45) L Monocytes % (Manual) 9 % (1-10) Eosinophils % (Manual) 1 % (0-3) Basophils % (Manual) 0 % (0-2) Band Neutrophils 0 % (0-8) Platelet Estimate Adequate Platelet Morphology Normal Anisocytosis 1+ Sodium Level 132 MMOL/L (136-145) L Potassium Level 4.1 MMOL/L (3.5-5.1) Chloride Level 98 MMOL/L (98-107) Carbon Dioxide Level 26 MMOL/L (21-32) Anion Gap 8 mmol/L (5-15) Blood Urea Nitrogen 11 mg/dL (7-18) Creatinine 0.5 MG/DL (0.55-1.30) L Estimat Glomerular Filtration Rate > 60 mL/min (>60) Glucose Level 125 MG/DL (74-106) H Calcium Level 9.5 MG/DL (8.5-10.1) Objective HEENT: Atraumatic and normocephalic. Anicteric. Pupils are equal, round, and reactive to light and accommodation. There is conjunctival pallor. NECK: JVP less than 5 cm. No carotid bruit. Carotid upstrokes 2+ bilaterally. CARDIOVASCULAR: Normal S1 and S2. Regular rate and rhythm. No murmurs, gallops, or rubs. LUNGS: Clear to auscultation bilaterally. ABDOMEN: Soft, nontender, and nondistended. No hepatosplenomegaly. Positive bowel sounds. EXTREMITIES: No evidence of edema, clubbing, or cyanosis. JUDITH WATSON Oct 05, 2017 11:51
[2017-10-05 12:00] VITALS: BP 108/72
[2017-10-05] MEDS: NovoLOG Insulin Flexpen SUBQ SCH ×3 (12:04→20:36)
--- NOTE | 2017-10-05 12:49 | Infectious Diseases Prog Note ---
Assessment/Plan Assessment/Plan A; Perforated bowel Peritonitis with E. coli, Enterococcus, C. albicans & Prevotella Cervical cancer, metastatic P: continue Unasyn & Fluconazole in hospital At time of discharge PO Fluconazole & Augmentin X 6 days Poor prognosis, consider hospice Subjective ROS Limited/Unobtainable: Yes Allergies: Coded Allergies: No Known Allergies (Unverified , 09/10/17) Objective Vital Signs Last 24 Hour Vital Signs Date Time Temp Pulse Resp B/P (MAP) Pulse Ox O2 Delivery O2 Flow Rate FiO2 10/05/17 12:26 97.6 10/05/17 11:14 97.6 10/05/17 08:00 97.6 111 20 100/73 100 10/05/17 08:00 Room Air 10/05/17 04:00 97.5 116 18 110/71 98 10/05/17 04:00 98 Room Air 10/05/17 04:00 98 Room Air 10/05/17 00:00 98 Room Air 10/05/17 00:00 97.6 105 18 114/73 95 Room Air 10/04/17 20:00 99 Room Air 10/04/17 20:00 97.7 102 18 94/62 99 Room Air 10/04/17 15:52 98.0 109 20 99/70 97 10/04/17 13:01 98.2 Height (Feet): 5 Height (Inches): 3.00 Weight (Pounds): 72 General Appearance: cachetic HEENT: mucous membranes moist Respiratory/Chest: lungs clear Cardiovascular: tachycardia Abdomen: soft, non tender, other - s/p colostomy Extremities: no edema Neurologic/Psychiatric: other - sleeping Musculoskeletal: atrophy Laboratory Tests Test 10/05/17 08:00 White Blood Count 15.1 K/UL (4.8-10.8) H Red Blood Count 3.78 M/UL (4.20-5.40) L Hemoglobin 11.3 G/DL (12.0-16.0) L Hematocrit 33.7 % (37.0-47.0) L Mean Corpuscular Volume 89 FL (80-99) Mean Corpuscular Hemoglobin 29.9 PG (27.0-31.0) Mean Corpuscular Hemoglobin Concent 33.6 G/DL (32.0-36.0) Red Cell Distribution Width 16.4 % (11.6-14.8) H Platelet Count 280 K/UL (150-450) Mean Platelet Volume 8.0 FL (6.5-10.1) Neutrophils (%) (Auto) % (45.0-75.0) Lymphocytes (%) (Auto) % (20.0-45.0) Monocytes (%) (Auto) % (1.0-10.0) Eosinophils (%) (Auto) % (0.0-3.0) Basophils (%) (Auto) % (0.0-2.0) Differential Total Cells Counted 100 Neutrophils % (Manual) 84 % (45-75) H Lymphocytes % (Manual) 6 % (20-45) L Monocytes % (Manual) 9 % (1-10) Eosinophils % (Manual) 1 % (0-3) Basophils % (Manual) 0 % (0-2) Band Neutrophils 0 % (0-8) Platelet Estimate Adequate Platelet Morphology Normal Anisocytosis 1+ Sodium Level 132 MMOL/L (136-145) L Potassium Level 4.1 MMOL/L (3.5-5.1) Chloride Level 98 MMOL/L (98-107) Carbon Dioxide Level 26 MMOL/L (21-32) Anion Gap 8 mmol/L (5-15) Blood Urea Nitrogen 11 mg/dL (7-18) Creatinine 0.5 MG/DL (0.55-1.30) L Estimat Glomerular Filtration Rate > 60 mL/min (>60) Glucose Level 125 MG/DL (74-106) H Calcium Level 9.5 MG/DL (8.5-10.1) Current Medications Medications (Trade) Dose Ordered Sig/Francoise Route PRN Reason Start Time Stop Time Status Last Admin Dose Admin Acetaminophen (Tylenol) 650 mg Q4H PRN RECTAL FEVER 09/25/17 16:30 10/22/17 16:29 Ampicillin Sodium/ Sulbactam Sodium 3 gm/Sodium Chloride 110 ml @ 220 mls/hr Q6HR IVPB 10/01/17 12:00 10/08/17 11:59 10/05/17 11:55 Chlorhexidine Gluconate (Kenia-Hex 2%) 1 applic DAILY@2000 TOPIC 09/25/17 20:00 10/24/17 19:59 10/04/17 20:02 Dextrose (Dextrose 50%) No Dose PRN IV hypoglycemia 09/28/17 00:00 10/28/17 00:00 Dronabinol (Marinol) 2.5 mg TID ORAL 10/04/17 13:00 11/03/17 12:59 10/05/17 09:18 Fat Emulsion Intravenous 168 ml/Amino Acids/ Electrolytes/ Dextrose 1,200 ml @ 50 mls/hr Q24H IV 10/04/17 20:00 10/05/17 19:59 10/04/17 20:01 Fat Emulsion Intravenous 168 ml/Amino Acids/ Electrolytes/ Dextrose 1,200 ml @ 50 mls/hr Q24H IV 10/05/17 20:00 11/04/17 19:59 Fluconazole (Diflucan) 200 mg DAILY ORAL 10/04/17 14:00 10/11/17 13:59 10/05/17 09:18 Gabapentin (Neurontin) 100 mg THREE TIMES A DAY ORAL 10/01/17 15:00 10/31/17 14:59 10/05/17 09:18 Heparin Sodium (Porcine) (Heparin 5000 units/ml) 5,000 units EVERY 12 HOURS SUBQ 09/25/17 21:00 10/23/17 08:59 10/05/17 09:20 Hydromorphone HCl (Dilaudid) 1 mg Q4H PRN IVP Severe Breakthru Pain (>7) 10/04/17 16:30 10/10/17 16:29 10/05/17 11:56 Hydromorphone HCl (Dilaudid) 4 mg Q4H PRN ORAL Severe Pain (Pain Scale 7-10) 10/03/17 09:30 10/10/17 09:29 10/05/17 10:15 Insulin Aspart (NovoLOG) BEFORE MEALS AND HS SUBQ 10/05/17 11:30 11/04/17 11:29 10/05/17 12:04 Ondansetron HCl (Zofran) 4 mg Q6H PRN IVP Nausea & Vomiting 09/25/17 16:30 10/22/17 16:29 Pantoprazole (Protonix) 40 mg DAILY IVP 09/26/17 09:00 10/23/17 08:59 10/05/17 09:18 Phytonadione (Vitamin K) 10 mg QWEEK SUBQ 09/27/17 20:00 10/27/17 19:59 10/04/17 20:02 Povidone Iodine (Betadine Annamaria) 1 applic DAILY@2100 TOPIC 10/02/17 21:00 11/01/17 20:59 10/04/17 20:02 Senna/Docusate Sodium (Jinny-Colace) 1 tab TWICE A DAY ORAL 09/29/17 18:00 10/29/17 17:59 10/05/17 09:22 Zolpidem Tartrate (Ambien) 5 mg HSPRN PRN ORAL Insomnia 10/03/17 09:30 10/10/17 09:29 10/04/17 23:16 CHERYLE WOLFE Oct 05, 2017 12:49
--- NOTE | 2017-10-05 13:16 | General Progress Note ---
Assessment/Plan Problem List: (1) Anemia ICD Codes: D64.9 - Anemia, unspecified SNOMED: 260309648 Qualifiers: Qualified Codes: D64.9 - Anemia, unspecified (2) GI bleed ICD Codes: K92.2 - Gastrointestinal hemorrhage, unspecified SNOMED: 87758979 Qualifiers: Qualified Codes: K92.2 - Gastrointestinal hemorrhage, unspecified (3) Abdominal pain ICD Codes: R10.9 - Unspecified abdominal pain SNOMED: 71042352 Qualifiers: Qualified Codes: R10.13 - Epigastric pain Status: unchanged Assessment/Plan ot pt diet cbc bmp am gi f/u id eval dc plan Subjective Constitutional: Reports: weakness Allergies: Coded Allergies: No Known Allergies (Unverified , 09/10/17) All Systems: reviewed and negative except above Subjective sl nauseus Objective Last 24 Hour Vital Signs Date Time Temp Pulse Resp B/P (MAP) Pulse Ox O2 Delivery O2 Flow Rate FiO2 10/05/17 12:26 97.6 10/05/17 12:00 98.4 110 20 108/72 100 10/05/17 11:14 97.6 10/05/17 08:00 97.6 111 20 100/73 100 10/05/17 08:00 Room Air 10/05/17 04:00 97.5 116 18 110/71 98 10/05/17 04:00 98 Room Air 10/05/17 04:00 98 Room Air 10/05/17 00:00 98 Room Air 10/05/17 00:00 97.6 105 18 114/73 95 Room Air 10/04/17 20:00 99 Room Air 10/04/17 20:00 97.7 102 18 94/62 99 Room Air 10/04/17 15:52 98.0 109 20 99/70 97 Intake and Output 10/04/17 10/05/17 19:00 07:00 Intake Total 1330 ml 870 ml Output Total 500 ml Balance 830 ml 870 ml Intake Oral 450 ml 150 ml IV Total 880 ml 720 ml Output Urine Total 500 ml # Voids 3 Laboratory Tests 10/05/17 08:00: White Blood Count 15.1H, Red Blood Count 3.78L, Hemoglobin 11.3L, Hematocrit 33.7L, Mean Corpuscular Volume 89, Mean Corpuscular Hemoglobin 29.9, Mean Corpuscular Hemoglobin Concent 33.6, Red Cell Distribution Width 16.4H, Platelet Count 280, Mean Platelet Volume 8.0, Neutrophils (%) (Auto) , Lymphocytes (%) (Auto) , Monocytes (%) (Auto) , Eosinophils (%) (Auto) , Basophils (%) (Auto) , Differential Total Cells Counted 100, Neutrophils % ( Manual) 84H, Lymphocytes % (Manual) 6L, Monocytes % (Manual) 9, Eosinophils % ( Manual) 1, Basophils % (Manual) 0, Band Neutrophils 0, Platelet Estimate Adequate, Platelet Morphology Normal, Anisocytosis 1+, Sodium Level 132L, Potassium Level 4.1, Chloride Level 98, Carbon Dioxide Level 26, Anion Gap 8, Blood Urea Nitrogen 11, Creatinine 0.5L, Estimat Glomerular Filtration Rate > 60 , Glucose Level 125H, Calcium Level 9.5 Height (Feet): 5 Height (Inches): 3.00 Weight (Pounds): 72 General Appearance: lethargic EENT: normal ENT inspection Neck: normal alignment Cardiovascular: normal peripheral pulses, normal rate, regular rhythm Respiratory/Chest: chest wall non-tender, lungs clear, normal breath sounds Abdomen: normal bowel sounds, non tender, soft Extremities: normal inspection Edema: no edema noted Arm (L), no edema noted Arm (R), no edema noted Leg (L), no edema noted Leg (R), no edema noted Pedal (L), no edema noted Pedal (R), no edema noted Generalized Neurologic: responsive, motor weakness Skin: normal pigmentation, warm/dry SONIDO FELICIANO Oct 05, 2017 13:16
--- NOTE | 2017-10-05 14:14 | General Surgery Progress Note ---
General Surgery-Progress Note Objective Last 24 Hour Vital Signs Date Time Temp Pulse Resp B/P (MAP) Pulse Ox O2 Delivery O2 Flow Rate FiO2 10/05/17 12:26 97.6 10/05/17 12:00 Room Air 10/05/17 12:00 98.4 110 20 108/72 100 10/05/17 11:14 97.6 10/05/17 08:00 97.6 111 20 100/73 100 10/05/17 08:00 Room Air 10/05/17 04:00 97.5 116 18 110/71 98 10/05/17 04:00 98 Room Air 10/05/17 04:00 98 Room Air 10/05/17 00:00 98 Room Air 10/05/17 00:00 97.6 105 18 114/73 95 Room Air 10/04/17 20:00 99 Room Air 10/04/17 20:00 97.7 102 18 94/62 99 Room Air 10/04/17 15:52 98.0 109 20 99/70 97 I&O Intake and Output 10/04/17 10/05/17 19:00 07:00 Intake Total 1330 ml 870 ml Output Total 500 ml Balance 830 ml 870 ml Intake Oral 450 ml 150 ml IV Total 880 ml 720 ml Output Urine Total 500 ml # Voids 3 Wound: other - packing Drains: none Respiratory: clear Abdomen: soft, flat, non-tender, present bowel sounds Extremities: no tenderness Laboratory Tests Test 10/05/17 08:00 White Blood Count 15.1 K/UL (4.8-10.8) H Red Blood Count 3.78 M/UL (4.20-5.40) L Hemoglobin 11.3 G/DL (12.0-16.0) L Hematocrit 33.7 % (37.0-47.0) L Mean Corpuscular Volume 89 FL (80-99) Mean Corpuscular Hemoglobin 29.9 PG (27.0-31.0) Mean Corpuscular Hemoglobin Concent 33.6 G/DL (32.0-36.0) Red Cell Distribution Width 16.4 % (11.6-14.8) H Platelet Count 280 K/UL (150-450) Mean Platelet Volume 8.0 FL (6.5-10.1) Neutrophils (%) (Auto) % (45.0-75.0) Lymphocytes (%) (Auto) % (20.0-45.0) Monocytes (%) (Auto) % (1.0-10.0) Eosinophils (%) (Auto) % (0.0-3.0) Basophils (%) (Auto) % (0.0-2.0) Differential Total Cells Counted 100 Neutrophils % (Manual) 84 % (45-75) H Lymphocytes % (Manual) 6 % (20-45) L Monocytes % (Manual) 9 % (1-10) Eosinophils % (Manual) 1 % (0-3) Basophils % (Manual) 0 % (0-2) Band Neutrophils 0 % (0-8) Platelet Estimate Adequate Platelet Morphology Normal Anisocytosis 1+ Sodium Level 132 MMOL/L (136-145) L Potassium Level 4.1 MMOL/L (3.5-5.1) Chloride Level 98 MMOL/L (98-107) Carbon Dioxide Level 26 MMOL/L (21-32) Anion Gap 8 mmol/L (5-15) Blood Urea Nitrogen 11 mg/dL (7-18) Creatinine 0.5 MG/DL (0.55-1.30) L Estimat Glomerular Filtration Rate > 60 mL/min (>60) Glucose Level 125 MG/DL (74-106) H Calcium Level 9.5 MG/DL (8.5-10.1) Assessment Post-op Diagnosis perforation of cecum and recto-sigmoid Plan Additional Comments continueantibiotics DWAYNE OLIVER Oct 05, 2017 14:14
[2017-10-05 16:00] VITALS: BP 106/69
[2017-10-05] MEDS ORDERED: Hydromorphone 0.5mg/0.5ml inj IVP PRN (16:30)
--- NOTE | 2017-10-05 18:17 | Pulmonology Progress Note ---
Assessment/Plan Problems: (1) Intra-abdominal free air of unknown etiology (2) Perforated sigmoid colon (3) Sepsis Assessment/Plan adjust pain meds/ no new complains all reviewed pain management check electroltyes. palliative care were discussed with patient, she agreed to hospice upon discharge. Subjective ROS Limited/Unobtainable: No Constitutional: Reports: no symptoms Allergies: Coded Allergies: No Known Allergies (Unverified , 09/10/17) Objective Last 24 Hour Vital Signs Date Time Temp Pulse Resp B/P (MAP) Pulse Ox O2 Delivery O2 Flow Rate FiO2 10/05/17 16:00 98.6 114 20 106/69 99 10/05/17 15:12 97.6 10/05/17 15:12 97.6 10/05/17 12:26 97.6 10/05/17 12:00 Room Air 10/05/17 12:00 98.4 110 20 108/72 100 10/05/17 08:00 97.6 111 20 100/73 100 10/05/17 08:00 Room Air 10/05/17 04:00 97.5 116 18 110/71 98 10/05/17 04:00 98 Room Air 10/05/17 04:00 98 Room Air 10/05/17 00:00 98 Room Air 10/05/17 00:00 97.6 105 18 114/73 95 Room Air 10/04/17 20:00 99 Room Air 10/04/17 20:00 97.7 102 18 94/62 99 Room Air Intake and Output 10/04/17 10/05/17 19:00 07:00 Intake Total 1330 ml 870 ml Output Total 500 ml Balance 830 ml 870 ml Intake Oral 450 ml 150 ml IV Total 880 ml 720 ml Output Urine Total 500 ml # Voids 3 Objective General Appearance: WD/WN, no apparent distress, ON tpn, NGtube in place HEENT: normocephalic, atraumatic Neck: non-tender, normal alignment Respiratory/Chest: chest wall non-tender, lungs clear Breasts: no masses Cardiovascular/Chest: normal rate Abdomen: normal bowel sounds, no organomegaly Genitourinary/Rectal: normal genital exam Extremities: normal range of motion Laboratory Tests 10/05/17 08:00: White Blood Count 15.1H, Red Blood Count 3.78L, Hemoglobin 11.3L, Hematocrit 33.7L, Mean Corpuscular Volume 89, Mean Corpuscular Hemoglobin 29.9, Mean Corpuscular Hemoglobin Concent 33.6, Red Cell Distribution Width 16.4H, Platelet Count 280, Mean Platelet Volume 8.0, Neutrophils (%) (Auto) , Lymphocytes (%) (Auto) , Monocytes (%) (Auto) , Eosinophils (%) (Auto) , Basophils (%) (Auto) , Differential Total Cells Counted 100, Neutrophils % ( Manual) 84H, Lymphocytes % (Manual) 6L, Monocytes % (Manual) 9, Eosinophils % ( Manual) 1, Basophils % (Manual) 0, Band Neutrophils 0, Platelet Estimate Adequate, Platelet Morphology Normal, Anisocytosis 1+, Sodium Level 132L, Potassium Level 4.1, Chloride Level 98, Carbon Dioxide Level 26, Anion Gap 8, Blood Urea Nitrogen 11, Creatinine 0.5L, Estimat Glomerular Filtration Rate > 60 , Glucose Level 125H, Calcium Level 9.5 Current Medications Medications (Trade) Dose Ordered Sig/Francoise Route PRN Reason Start Time Stop Time Status Last Admin Dose Admin Acetaminophen (Tylenol) 650 mg Q4H PRN RECTAL FEVER 09/25/17 16:30 10/22/17 16:29 Ampicillin Sodium/ Sulbactam Sodium 3 gm/Sodium Chloride 110 ml @ 220 mls/hr Q6HR IVPB 10/01/17 12:00 10/08/17 11:59 10/05/17 11:55 Chlorhexidine Gluconate (Kenia-Hex 2%) 1 applic DAILY@2000 TOPIC 09/25/17 20:00 10/24/17 19:59 10/04/17 20:02 Dextrose (Dextrose 50%) No Dose PRN IV hypoglycemia 09/28/17 00:00 10/28/17 00:00 Dronabinol (Marinol) 2.5 mg TID ORAL 10/04/17 13:00 11/03/17 12:59 10/05/17 17:59 Fat Emulsion Intravenous 168 ml/Amino Acids/ Electrolytes/ Dextrose 1,200 ml @ 50 mls/hr Q24H IV 10/04/17 20:00 10/05/17 19:59 10/04/17 20:01 Fat Emulsion Intravenous 168 ml/Amino Acids/ Electrolytes/ Dextrose 1,200 ml @ 50 mls/hr Q24H IV 10/05/17 20:00 11/04/17 19:59 Fluconazole (Diflucan) 200 mg DAILY ORAL 10/04/17 14:00 10/11/17 13:59 10/05/17 09:18 Gabapentin (Neurontin) 100 mg THREE TIMES A DAY ORAL 10/01/17 15:00 10/31/17 14:59 10/05/17 17:59 Heparin Sodium (Porcine) (Heparin 5000 units/ml) 5,000 units EVERY 12 HOURS SUBQ 09/25/17 21:00 10/23/17 08:59 10/05/17 09:20 Hydromorphone HCl (Dilaudid) 2 mg Q3H PRN IVP Severe Breakthru Pain (>7) 10/05/17 16:30 10/12/17 16:29 10/05/17 17:59 Hydromorphone HCl (Dilaudid) 4 mg Q4H PRN ORAL Severe Pain (Pain Scale 7-10) 10/03/17 09:30 10/10/17 09:29 10/05/17 14:13 Insulin Aspart (NovoLOG) BEFORE MEALS AND HS SUBQ 10/05/17 11:30 11/04/17 11:29 10/05/17 17:11 Ondansetron HCl (Zofran) 4 mg Q6H PRN IVP Nausea & Vomiting 09/25/17 16:30 10/22/17 16:29 Pantoprazole (Protonix) 40 mg DAILY IVP 09/26/17 09:00 10/23/17 08:59 10/05/17 09:18 Phytonadione (Vitamin K) 10 mg QWEEK SUBQ 09/27/17 20:00 10/27/17 19:59 10/04/17 20:02 Povidone Iodine (Betadine Annamaria) 1 applic DAILY@2100 TOPIC 10/02/17 21:00 11/01/17 20:59 10/04/17 20:02 Senna/Docusate Sodium (Jinny-Colace) 1 tab TWICE A DAY ORAL 09/29/17 18:00 10/29/17 17:59 10/05/17 17:59 Zolpidem Tartrate (Ambien) 5 mg HSPRN PRN ORAL Insomnia 10/03/17 09:30 10/10/17 09:29 10/04/17 23:16 JL CHAVEZ Oct 05, 2017 18:17
[2017-10-05 20:00] VITALS: BP 99/64
[2017-10-05] MEDS ORDERED: FAT EMULSION 20% IV SCH (20:00)
[2017-10-05] MEDS ORDERED: TPN IV SCH (20:00)
[2017-10-05] MEDS: Dyna-Hex 2% Top Sol 2oz TOPIC SCH (20:24)
[2017-10-05] MEDS: Betadine 4oz Bottle TOPIC SCH (21:15)
--- NOTE | 2017-10-05 23:17 | General Progress Note ---
Assessment/Plan Status: stable Assessment/Plan # Leukocytosis is likely reactive from Acute abdominal pain 2 to perforation with perforated cecum and rectosigmoid s/p exp laparotomy with partial R hemicolectomy --> improved from yesterday. --> On pain control for abd pain. --> continue to closely monitor. # Anemia of chronic disease --> w/u has been reviewed --> Blood transfusion not required unless symptomatic or hgb <7 --> Has not required blood transfusion as hgb >8 # Cervical Ca s/p surgery and radiation, has not received any chemotherapy recently --> Monitor. # Thrombocytosis is likely related to chronic reactive process --> resolved # Anemia of GI bleeding --> GI followup. # Severe protein calorie malnutrition Subjective Date patient seen: Oct 05, 2017 Constitutional: Denies: no symptoms, chills, diaphoresis, fever, malaise, weakness, other HEENT: Denies: no symptoms, eye pain, blurred vision, tearing, double vision, ear pain, ear discharge, nose pain, nose congestion, throat pain, throat swelling, mouth pain, mouth swelling, other Cardiovascular: Denies: no symptoms, chest pain, edema, irregular heart rate, lightheadedness, palpitations, syncope, other Respiratory: Denies: no symptoms, cough, orthopnea, shortness of breath, SOB with excertion, SOB at rest, sputum, stridor, wheezing, other Gastrointestinal/Abdominal: Denies: no symptoms, abdomen distended, abdominal pain, black stools, tarry stools, blood in stool, constipated, diarrhea, difficulty swallowing, nausea, poor appetite, poor fluid intake, rectal bleeding , vomiting, other Genitourinary: Denies: no symptoms, burning, discharge, frequency, flank pain, hematuria, incontinence, pain, urgency, other Neurologic/Psychiatric: Denies: no symptoms, anxiety, depressed, emotional problems, headache, numbness, paresthesia, pre-existing deficit, seizure, tingling, tremors, weakness, other Hematologic/Lymphatic: Reports: anemia Allergies: Coded Allergies: No Known Allergies (Unverified , 09/10/17) Subjective Wbc count improved. Patient on pain control for abd pain. Tachycardic. Objective Last 24 Hour Vital Signs Date Time Temp Pulse Resp B/P (MAP) Pulse Ox O2 Delivery O2 Flow Rate FiO2 10/05/17 20:36 97.0 10/05/17 20:00 97.0 18 97 Room Air 10/05/17 18:29 98.6 10/05/17 16:00 Room Air 10/05/17 16:00 98.6 114 20 106/69 99 10/05/17 12:26 97.6 10/05/17 12:00 Room Air 10/05/17 12:00 98.4 110 20 108/72 100 10/05/17 08:00 97.6 111 20 100/73 100 10/05/17 08:00 Room Air 10/05/17 04:00 97.5 116 18 110/71 98 10/05/17 04:00 98 Room Air 10/05/17 04:00 98 Room Air 10/05/17 00:00 98 Room Air 10/05/17 00:00 97.6 105 18 114/73 95 Room Air Intake and Output 10/04/17 10/05/17 19:00 07:00 Intake Total 1330 ml 870 ml Output Total 500 ml Balance 830 ml 870 ml Intake Oral 450 ml 150 ml IV Total 880 ml 720 ml Output Urine Total 500 ml # Voids 3 Laboratory Tests 10/05/17 08:00: White Blood Count 15.1H, Red Blood Count 3.78L, Hemoglobin 11.3L, Hematocrit 33.7L, Mean Corpuscular Volume 89, Mean Corpuscular Hemoglobin 29.9, Mean Corpuscular Hemoglobin Concent 33.6, Red Cell Distribution Width 16.4H, Platelet Count 280, Mean Platelet Volume 8.0, Neutrophils (%) (Auto) , Lymphocytes (%) (Auto) , Monocytes (%) (Auto) , Eosinophils (%) (Auto) , Basophils (%) (Auto) , Differential Total Cells Counted 100, Neutrophils % ( Manual) 84H, Lymphocytes % (Manual) 6L, Monocytes % (Manual) 9, Eosinophils % ( Manual) 1, Basophils % (Manual) 0, Band Neutrophils 0, Platelet Estimate Adequate, Platelet Morphology Normal, Anisocytosis 1+, Sodium Level 132L, Potassium Level 4.1, Chloride Level 98, Carbon Dioxide Level 26, Anion Gap 8, Blood Urea Nitrogen 11, Creatinine 0.5L, Estimat Glomerular Filtration Rate > 60 , Glucose Level 125H, Calcium Level 9.5 Height (Feet): 5 Height (Inches): 3.00 Weight (Pounds): 72 General Appearance: mild distress Cardiovascular: tachycardia Respiratory/Chest: decreased breath sounds Chris Spencer Oct 05, 2017 23:17
[2017-10-06] VITALS: BP 114/59
[2017-10-06] MEDS: Ampicillin/Sulbactam Sod 3 GM in NS 110 ML IVPB SCH ×5 (00:18→23:35)
[2017-10-06 04:00] VITALS: BP 100/60
[2017-10-06] MEDS: HYDROmorphone 4mg tab ORAL PRN ×5 (04:15→21:32)
[2017-10-06] MEDS: NovoLOG Insulin Flexpen SUBQ SCH ×4 (06:39→21:43)
--- NOTE | 2017-10-06 08:19 | Pulmonology Progress Note ---
Assessment/Plan Assessment/Plan ASSESSMENT Acute abdominal pain 2 to perforation Perforated cecum and rectosigmoid s/p exp laparotomy with partial R hemicolectomy peritonitis with E coli, Enterococci, Jennyfer and Prevotella metastatic cervical Ca GI bleeding anemia due to acute blood loss ( required blood transfusion) anemia of chronic disease severe protein calorie malnutrition PLAN OF CARE [facility] floor still with leukocytosis, poor oral intake s/p emergent surgery surgery follows TPN f/up CT A/P noted calorie count Abx, ID follows, IS at the bedside and encourage to use Pain management wound care O2 HHN prn DVT prophylaxis monitor HH, anemia w/up c/w anemia of chronic disease, s/p 3 u PRBC, goal to keep Hgb above 7, transfuse if below or symptomatic , heme/onco follows nutritional support overall prognosis poor need placement consider comfort care case discussed and evaluated by supervising physician Subjective Allergies: Coded Allergies: No Known Allergies (Unverified , 09/10/17) Subjective started on diet Poor oral intake WBC still high, but trending down, afebrile pain controlled Objective Last 24 Hour Vital Signs Date Time Temp Pulse Resp B/P (MAP) Pulse Ox O2 Delivery O2 Flow Rate FiO2 10/06/17 07:08 97.0 10/06/17 06:28 97.0 10/06/17 04:00 98.3 19 100/60 98 Room Air 10/06/17 00:00 98.1 116 18 114/59 100 Room Air 10/05/17 20:00 97.0 119 18 99/64 97 Room Air 10/05/17 16:00 Room Air 10/05/17 16:00 98.6 114 20 106/69 99 10/05/17 12:26 97.6 10/05/17 12:00 Room Air 10/05/17 12:00 98.4 110 20 108/72 100 Intake and Output 10/05/17 10/06/17 19:00 07:00 Intake Total 1000 ml 660 ml Balance 1000 ml 660 ml Intake Oral 240 ml IV Total 760 ml 660 ml # Voids 2 3 # Bowel Movements 1 Objective Status: awake, A/A/O x 3 cachectic female in NAD, chronically ill looking HEENT: atraumatic, normocephalic, Neck: full ROM, trachea midline, R jugular CL intact Lungs: clear Heart: HR/BP stable Abdomen: soft, + BS, abdominal dressing C/D/I ; Extremities: no C/C/E, Current Medications Medications (Trade) Dose Ordered Sig/Francoise Route PRN Reason Start Time Stop Time Status Last Admin Dose Admin Acetaminophen (Tylenol) 650 mg Q4H PRN RECTAL FEVER 09/25/17 16:30 10/22/17 16:29 Ampicillin Sodium/ Sulbactam Sodium 3 gm/Sodium Chloride 110 ml @ 220 mls/hr Q6HR IVPB 10/01/17 12:00 10/08/17 11:59 10/06/17 06:27 Chlorhexidine Gluconate (Kenia-Hex 2%) 1 applic DAILY@2000 TOPIC 09/25/17 20:00 10/24/17 19:59 10/05/17 20:24 Dextrose (Dextrose 50%) No Dose PRN IV hypoglycemia 09/28/17 00:00 10/28/17 00:00 Dronabinol (Marinol) 2.5 mg TID ORAL 10/04/17 13:00 11/03/17 12:59 10/05/17 17:59 Fat Emulsion Intravenous 168 ml/Amino Acids/ Electrolytes/ Dextrose 1,200 ml @ 50 mls/hr Q24H IV 10/05/17 20:00 11/04/17 19:59 10/05/17 20:33 Fluconazole (Diflucan) 200 mg DAILY ORAL 10/04/17 14:00 10/11/17 13:59 10/05/17 09:18 Gabapentin (Neurontin) 100 mg THREE TIMES A DAY ORAL 10/01/17 15:00 10/31/17 14:59 10/05/17 17:59 Heparin Sodium (Porcine) (Heparin 5000 units/ml) 5,000 units EVERY 12 HOURS SUBQ 09/25/17 21:00 10/23/17 08:59 10/05/17 21:17 Hydromorphone HCl (Dilaudid) 2 mg Q3H PRN IVP Severe Breakthru Pain (>7) 10/05/17 16:30 10/12/17 16:29 10/06/17 06:28 Hydromorphone HCl (Dilaudid) 4 mg Q4H PRN ORAL Severe Pain (Pain Scale 7-10) 10/03/17 09:30 10/10/17 09:29 10/06/17 04:15 Insulin Aspart (NovoLOG) BEFORE MEALS AND HS SUBQ 10/05/17 11:30 11/04/17 11:29 10/06/17 06:39 Ondansetron HCl (Zofran) 4 mg Q6H PRN IVP Nausea & Vomiting 09/25/17 16:30 10/22/17 16:29 Pantoprazole (Protonix) 40 mg DAILY IVP 09/26/17 09:00 10/23/17 08:59 10/05/17 09:18 Phytonadione (Vitamin K) 10 mg QWEEK SUBQ 09/27/17 20:00 10/27/17 19:59 10/04/17 20:02 Povidone Iodine (Betadine Annamaria) 1 applic DAILY@2100 TOPIC 10/02/17 21:00 11/01/17 20:59 10/05/17 21:15 Senna/Docusate Sodium (Jinny-Colace) 1 tab TWICE A DAY ORAL 09/29/17 18:00 10/29/17 17:59 10/05/17 17:59 Zolpidem Tartrate (Ambien) 5 mg HSPRN PRN ORAL Insomnia 10/03/17 09:30 10/10/17 09:29 10/04/17 23:16 Nikole Hodges NP ([facility]) Oct 06, 2017 08:19
[2017-10-06 08:21] VITALS: BP 93/56
[2017-10-06] MEDS: Dronabinol 2.5mg Cap ORAL SCH ×3 (08:37→17:53)
[2017-10-06] MEDS: Pantoprazole Inj IVP SCH (08:37)
[2017-10-06] MEDS: Fluconazole 100mg tab ORAL SCH (08:37)
[2017-10-06] MEDS: Heparin 5000 units/ml inj SUBQ SCH ×2 (08:39→21:42)
[2017-10-06] MEDS: Docusate Sod/Senna tab ORAL SCH ×2 (08:43→17:58)
[2017-10-06 09:03] LABS: HEMATOCRIT 31.6 % (37.0-47.0); HEMOGLOBIN 10.4 G/DL (12.0-16.0); MEAN CORPUSCULAR VOLUME 90 FL (80-99); PLATELET COUNT 280 K/UL (150-450); RED BLOOD COUNT 3.53 M/UL (4.20-5.40); RED CELL DISTRIBUTION WIDTH 16.3 % (11.6-14.8); WHITE BLOOD COUNT 13.6 K/UL (4.8-10.8)
[2017-10-06 09:23] LABS: ANION GAP 8 mmol/L (5-15); BLOOD UREA NITROGEN 16 mg/dL (7-18); CALCIUM 9.5 MG/DL (8.5-10.1); CARBON DIOXIDE 26 MMOL/L (21-32); CHLORIDE 97 MMOL/L (98-107); CREATININE 0.5 MG/DL (0.55-1.30); POTASSIUM 4.4 MMOL/L (3.5-5.1); SODIUM 131 MMOL/L (136-145)
--- NOTE | 2017-10-06 11:19 | GI Progress Note ---
Assessment/Plan Problems: (1) Perforation of cecum ICD Codes: K63.1 - Perforation of intestine (nontraumatic) SNOMED: 843406699 (2) Perforated sigmoid colon ICD Codes: K63.1 - Perforation of intestine (nontraumatic) SNOMED: 560881929 (3) Intra-abdominal free air of unknown etiology ICD Codes: K66.8 - Other specified disorders of peritoneum SNOMED: 39227581 (4) Abdominal pain ICD Codes: R10.9 - Unspecified abdominal pain SNOMED: 17126040 Qualifiers: Qualified Codes: R10.13 - Epigastric pain (5) GI bleed ICD Codes: K92.2 - Gastrointestinal hemorrhage, unspecified SNOMED: 37664952 Qualifiers: Qualified Codes: K92.2 - Gastrointestinal hemorrhage, unspecified (6) Anemia ICD Codes: D64.9 - Anemia, unspecified SNOMED: 348771402 Qualifiers: Qualified Codes: D64.9 - Anemia, unspecified Status: unchanged Status Narrative Discussed with Dr. Jordan. Assessment/Plan post op care fu surgical recs PO diet per surgery TPN >> will taper once patient begins tolerate PO - cont Marinol fu calorie count electrolyte correction PT evaluation pain control fu labs Subjective Subjective generalized weakness feels better has no appetite poor PO intake ambulating with PT today Objective Last 24 Hour Vital Signs Date Time Temp Pulse Resp B/P (MAP) Pulse Ox O2 Delivery O2 Flow Rate FiO2 10/06/17 08:21 98.0 98 19 93/56 98 10/06/17 07:08 97.0 10/06/17 06:28 97.0 10/06/17 04:00 98.3 19 100/60 98 Room Air 10/06/17 00:00 98.1 116 18 114/59 100 Room Air 10/05/17 20:00 97.0 119 18 99/64 97 Room Air 10/05/17 16:00 Room Air 10/05/17 16:00 98.6 114 20 106/69 99 10/05/17 12:26 97.6 10/05/17 12:00 Room Air 10/05/17 12:00 98.4 110 20 108/72 100 Intake and Output 10/05/17 10/06/17 19:00 07:00 Intake Total 1000 ml 660 ml Balance 1000 ml 660 ml Intake Oral 240 ml IV Total 760 ml 660 ml # Voids 2 3 # Bowel Movements 1 Laboratory Tests Test 10/06/17 08:10 White Blood Count 13.6 K/UL (4.8-10.8) H Red Blood Count 3.53 M/UL (4.20-5.40) L Hemoglobin 10.4 G/DL (12.0-16.0) L Hematocrit 31.6 % (37.0-47.0) L Mean Corpuscular Volume 90 FL (80-99) Mean Corpuscular Hemoglobin 29.5 PG (27.0-31.0) Mean Corpuscular Hemoglobin Concent 32.9 G/DL (32.0-36.0) Red Cell Distribution Width 16.3 % (11.6-14.8) H Platelet Count 280 K/UL (150-450) Mean Platelet Volume 7.4 FL (6.5-10.1) Neutrophils (%) (Auto) % (45.0-75.0) Lymphocytes (%) (Auto) % (20.0-45.0) Monocytes (%) (Auto) % (1.0-10.0) Eosinophils (%) (Auto) % (0.0-3.0) Basophils (%) (Auto) % (0.0-2.0) Differential Total Cells Counted 100 Neutrophils % (Manual) 93 % (45-75) H Lymphocytes % (Manual) 2 % (20-45) L Monocytes % (Manual) 3 % (1-10) Eosinophils % (Manual) 2 % (0-3) Basophils % (Manual) 0 % (0-2) Band Neutrophils 0 % (0-8) Platelet Estimate Adequate Platelet Morphology Normal Hypochromasia 1+ Sodium Level 131 MMOL/L (136-145) L Potassium Level 4.4 MMOL/L (3.5-5.1) Chloride Level 97 MMOL/L (98-107) L Carbon Dioxide Level 26 MMOL/L (21-32) Anion Gap 8 mmol/L (5-15) Blood Urea Nitrogen 16 mg/dL (7-18) Creatinine 0.5 MG/DL (0.55-1.30) L Estimat Glomerular Filtration Rate > 60 mL/min (>60) Glucose Level 81 MG/DL (74-106) Calcium Level 9.5 MG/DL (8.5-10.1) Height (Feet): 5 Height (Inches): 3.00 Weight (Pounds): 72 General Appearance: WD/WN, no apparent distress, alert, thin Cardiovascular: normal rate Respiratory/Chest: normal breath sounds, no respiratory distress Abdominal Exam: normal bowel sounds, non tender, soft Extremities: normal range of motion, non-tender Cece Gerard N.P. Oct 06, 2017 11:19
--- NOTE | 2017-10-06 11:20 | General Progress Note ---
Assessment/Plan Problem List: (1) Anemia ICD Codes: D64.9 - Anemia, unspecified SNOMED: 194937485 Qualifiers: Qualified Codes: D64.9 - Anemia, unspecified (2) GI bleed ICD Codes: K92.2 - Gastrointestinal hemorrhage, unspecified SNOMED: 23717465 Qualifiers: Qualified Codes: K92.2 - Gastrointestinal hemorrhage, unspecified (3) Abdominal pain ICD Codes: R10.9 - Unspecified abdominal pain SNOMED: 91026093 Qualifiers: Qualified Codes: R10.13 - Epigastric pain Status: unchanged Assessment/Plan ot pt diet cbc bmp am gi f/u id eval dc plan Subjective Constitutional: Reports: weakness Allergies: Coded Allergies: No Known Allergies (Unverified , 09/10/17) All Systems: reviewed and negative except above Subjective sl nauseus Objective Last 24 Hour Vital Signs Date Time Temp Pulse Resp B/P (MAP) Pulse Ox O2 Delivery O2 Flow Rate FiO2 10/06/17 08:21 98.0 98 19 93/56 98 10/06/17 07:08 97.0 10/06/17 06:28 97.0 10/06/17 04:00 98.3 19 100/60 98 Room Air 10/06/17 00:00 98.1 116 18 114/59 100 Room Air 10/05/17 20:00 97.0 119 18 99/64 97 Room Air 10/05/17 16:00 Room Air 10/05/17 16:00 98.6 114 20 106/69 99 10/05/17 12:26 97.6 10/05/17 12:00 Room Air 10/05/17 12:00 98.4 110 20 108/72 100 Intake and Output 10/05/17 10/06/17 19:00 07:00 Intake Total 1000 ml 660 ml Balance 1000 ml 660 ml Intake Oral 240 ml IV Total 760 ml 660 ml # Voids 2 3 # Bowel Movements 1 Laboratory Tests 10/06/17 08:10: White Blood Count 13.6H, Red Blood Count 3.53L, Hemoglobin 10.4L, Hematocrit 31.6L, Mean Corpuscular Volume 90, Mean Corpuscular Hemoglobin 29.5, Mean Corpuscular Hemoglobin Concent 32.9, Red Cell Distribution Width 16.3H, Platelet Count 280, Mean Platelet Volume 7.4, Neutrophils (%) (Auto) , Lymphocytes (%) (Auto) , Monocytes (%) (Auto) , Eosinophils (%) (Auto) , Basophils (%) (Auto) , Differential Total Cells Counted 100, Neutrophils % ( Manual) 93H, Lymphocytes % (Manual) 2L, Monocytes % (Manual) 3, Eosinophils % ( Manual) 2, Basophils % (Manual) 0, Band Neutrophils 0, Platelet Estimate Adequate, Platelet Morphology Normal, Hypochromasia 1+, Sodium Level 131L, Potassium Level 4.4, Chloride Level 97L, Carbon Dioxide Level 26, Anion Gap 8, Blood Urea Nitrogen 16, Creatinine 0.5L, Estimat Glomerular Filtration Rate > 60 , Glucose Level 81, Calcium Level 9.5 Height (Feet): 5 Height (Inches): 3.00 Weight (Pounds): 72 General Appearance: lethargic EENT: normal ENT inspection Neck: normal alignment Cardiovascular: normal peripheral pulses, normal rate, regular rhythm Respiratory/Chest: chest wall non-tender, lungs clear, normal breath sounds Abdomen: normal bowel sounds, non tender, soft Extremities: normal inspection Edema: no edema noted Arm (L), no edema noted Arm (R), no edema noted Leg (L), no edema noted Leg (R), no edema noted Pedal (L), no edema noted Pedal (R), no edema noted Generalized Neurologic: motor weakness Skin: normal pigmentation, warm/dry SONIDO FELICIANO Oct 06, 2017 11:20
--- NOTE | 2017-10-06 11:55 | Nephrology Progress Note ---
Assessment/Plan Assessment 1. Acute renal failure 2. Hyponatremia worse spoke to pharmacist increased NA to 90 3. Malnutrition. 4. hyperkalemia.resolved 5. Dehydration. 6. History of cervical cancer. Plan plan adjust TPN mix all ivpb with ns .9 monitoring renal function avoid NSAID replace electrolyte as need it Subjective Subjective alert and awake no acute events Objective Objective Last 24 Hour Vital Signs Date Time Temp Pulse Resp B/P (MAP) Pulse Ox O2 Delivery O2 Flow Rate FiO2 10/06/17 08:21 98.0 98 19 93/56 98 10/06/17 07:08 97.0 10/06/17 06:28 97.0 10/06/17 04:00 98.3 19 100/60 98 Room Air 10/06/17 00:00 98.1 116 18 114/59 100 Room Air 10/05/17 20:00 97.0 119 18 99/64 97 Room Air 10/05/17 16:00 Room Air 10/05/17 16:00 98.6 114 20 106/69 99 10/05/17 12:26 97.6 10/05/17 12:00 Room Air 10/05/17 12:00 98.4 110 20 108/72 100 Intake and Output 10/05/17 10/06/17 19:00 07:00 Intake Total 1000 ml 660 ml Balance 1000 ml 660 ml Intake Oral 240 ml IV Total 760 ml 660 ml # Voids 2 3 # Bowel Movements 1 Laboratory Tests 10/06/17 08:10: White Blood Count 13.6H, Red Blood Count 3.53L, Hemoglobin 10.4L, Hematocrit 31.6L, Mean Corpuscular Volume 90, Mean Corpuscular Hemoglobin 29.5, Mean Corpuscular Hemoglobin Concent 32.9, Red Cell Distribution Width 16.3H, Platelet Count 280, Mean Platelet Volume 7.4, Neutrophils (%) (Auto) , Lymphocytes (%) (Auto) , Monocytes (%) (Auto) , Eosinophils (%) (Auto) , Basophils (%) (Auto) , Differential Total Cells Counted 100, Neutrophils % ( Manual) 93H, Lymphocytes % (Manual) 2L, Monocytes % (Manual) 3, Eosinophils % ( Manual) 2, Basophils % (Manual) 0, Band Neutrophils 0, Platelet Estimate Adequate, Platelet Morphology Normal, Hypochromasia 1+, Sodium Level 131L, Potassium Level 4.4, Chloride Level 97L, Carbon Dioxide Level 26, Anion Gap 8, Blood Urea Nitrogen 16, Creatinine 0.5L, Estimat Glomerular Filtration Rate > 60 , Glucose Level 81, Calcium Level 9.5 Height (Feet): 5 Height (Inches): 3.00 Weight (Pounds): 72 Objective HEAD AND NECK: No JVP. No LAD. No thyromegaly. Extraocular movement intact. Pupils are reactive to light and accommodation. LUNGS: Decreased breathing sounds. CARDIAC: Regular rate and rhythm. S1 and S2. No murmur. No rub. ABDOMEN: Distended. Bowel sounds are positive. Diffuse tenderness. No guarding. No rebound. EXTREMITIES: A 1+ to 2+ edema. No clubbing. No cyanosis. NEUROLOGIC: Cranial nerves II through XII within normal limits. Upper and lower extremities are grossly intact. LORRAINE GROVER Oct 06, 2017 11:55
[2017-10-06 12:15] VITALS: BP 96/74
--- NOTE | 2017-10-06 12:31 | Infectious Diseases Prog Note ---
Assessment/Plan Assessment/Plan A; Perforated bowel Peritonitis with E. coli, Enterococcus, C. albicans & Prevotella Cervical cancer, metastatic P: continue Unasyn & Fluconazole in hospital Poor prognosis, consider hospice Subjective ROS Limited/Unobtainable: No Constitutional: Reports: anorexia Respiratory: Reports: no symptoms Cardiovascular: Reports: no symptoms Gastrointestinal/Abdominal: Reports: other - pain Genitourinary: Reports: no symptoms Musculoskeletal: Reports: no symptoms Allergies: Coded Allergies: No Known Allergies (Unverified , 09/10/17) Objective Vital Signs Last 24 Hour Vital Signs Date Time Temp Pulse Resp B/P (MAP) Pulse Ox O2 Delivery O2 Flow Rate FiO2 10/06/17 12:15 97.1 70 20 96/74 97 10/06/17 08:21 98.0 98 19 93/56 98 10/06/17 07:08 97.0 10/06/17 06:28 97.0 10/06/17 04:00 98.3 19 100/60 98 Room Air 10/06/17 00:00 98.1 116 18 114/59 100 Room Air 10/05/17 20:00 97.0 119 18 99/64 97 Room Air 10/05/17 16:00 Room Air 10/05/17 16:00 98.6 114 20 106/69 99 Height (Feet): 5 Height (Inches): 3.00 Weight (Pounds): 72 General Appearance: cachetic HEENT: mucous membranes moist Respiratory/Chest: lungs clear Cardiovascular: normal rate Abdomen: soft, non tender, other - s/p colostomy Extremities: no edema Neurologic/Psychiatric: alert, oriented x 3, responsive Laboratory Tests Test 10/06/17 08:10 White Blood Count 13.6 K/UL (4.8-10.8) H Red Blood Count 3.53 M/UL (4.20-5.40) L Hemoglobin 10.4 G/DL (12.0-16.0) L Hematocrit 31.6 % (37.0-47.0) L Mean Corpuscular Volume 90 FL (80-99) Mean Corpuscular Hemoglobin 29.5 PG (27.0-31.0) Mean Corpuscular Hemoglobin Concent 32.9 G/DL (32.0-36.0) Red Cell Distribution Width 16.3 % (11.6-14.8) H Platelet Count 280 K/UL (150-450) Mean Platelet Volume 7.4 FL (6.5-10.1) Neutrophils (%) (Auto) % (45.0-75.0) Lymphocytes (%) (Auto) % (20.0-45.0) Monocytes (%) (Auto) % (1.0-10.0) Eosinophils (%) (Auto) % (0.0-3.0) Basophils (%) (Auto) % (0.0-2.0) Differential Total Cells Counted 100 Neutrophils % (Manual) 93 % (45-75) H Lymphocytes % (Manual) 2 % (20-45) L Monocytes % (Manual) 3 % (1-10) Eosinophils % (Manual) 2 % (0-3) Basophils % (Manual) 0 % (0-2) Band Neutrophils 0 % (0-8) Platelet Estimate Adequate Platelet Morphology Normal Hypochromasia 1+ Sodium Level 131 MMOL/L (136-145) L Potassium Level 4.4 MMOL/L (3.5-5.1) Chloride Level 97 MMOL/L (98-107) L Carbon Dioxide Level 26 MMOL/L (21-32) Anion Gap 8 mmol/L (5-15) Blood Urea Nitrogen 16 mg/dL (7-18) Creatinine 0.5 MG/DL (0.55-1.30) L Estimat Glomerular Filtration Rate > 60 mL/min (>60) Glucose Level 81 MG/DL (74-106) Calcium Level 9.5 MG/DL (8.5-10.1) Current Medications Medications (Trade) Dose Ordered Sig/Francoise Route PRN Reason Start Time Stop Time Status Last Admin Dose Admin Acetaminophen (Tylenol) 650 mg Q4H PRN RECTAL FEVER 09/25/17 16:30 10/22/17 16:29 Ampicillin Sodium/ Sulbactam Sodium 3 gm/Sodium Chloride 110 ml @ 220 mls/hr Q6HR IVPB 10/01/17 12:00 10/08/17 11:59 10/06/17 06:27 Chlorhexidine Gluconate (Kenia-Hex 2%) 1 applic DAILY@2000 TOPIC 09/25/17 20:00 10/24/17 19:59 10/05/17 20:24 Dextrose (Dextrose 50%) No Dose PRN IV hypoglycemia 09/28/17 00:00 10/28/17 00:00 Dronabinol (Marinol) 2.5 mg TID ORAL 10/04/17 13:00 11/03/17 12:59 10/06/17 08:37 Fat Emulsion Intravenous 168 ml/Amino Acids/ Electrolytes/ Dextrose 1,200 ml @ 50 mls/hr Q24H IV 10/05/17 20:00 10/06/17 19:59 10/05/17 20:33 Fat Emulsion Intravenous 168 ml/Amino Acids/ Electrolytes/ Dextrose 1,200 ml @ 50 mls/hr Q24H IV 10/06/17 20:00 11/05/17 19:59 Fluconazole (Diflucan) 200 mg DAILY ORAL 10/04/17 14:00 10/11/17 13:59 10/06/17 08:37 Gabapentin (Neurontin) 100 mg THREE TIMES A DAY ORAL 10/01/17 15:00 10/31/17 14:59 10/06/17 08:37 Heparin Sodium (Porcine) (Heparin 5000 units/ml) 5,000 units EVERY 12 HOURS SUBQ 09/25/17 21:00 10/23/17 08:59 10/06/17 08:39 Hydromorphone HCl (Dilaudid) 2 mg Q3H PRN IVP Severe Breakthru Pain (>7) 10/05/17 16:30 10/12/17 16:29 10/06/17 09:38 Hydromorphone HCl (Dilaudid) 4 mg Q4H PRN ORAL Severe Pain (Pain Scale 7-10) 10/03/17 09:30 10/10/17 09:29 10/06/17 08:43 Insulin Aspart (NovoLOG) BEFORE MEALS AND HS SUBQ 10/05/17 11:30 11/04/17 11:29 10/06/17 06:39 Ondansetron HCl (Zofran) 4 mg Q6H PRN IVP Nausea & Vomiting 09/25/17 16:30 10/22/17 16:29 Pantoprazole (Protonix) 40 mg DAILY IVP 09/26/17 09:00 10/23/17 08:59 10/06/17 08:37 Phytonadione (Vitamin K) 10 mg QWEEK SUBQ 09/27/17 20:00 10/27/17 19:59 10/04/17 20:02 Povidone Iodine (Betadine Annamaria) 1 applic DAILY@2100 TOPIC 10/02/17 21:00 11/01/17 20:59 10/05/17 21:15 Senna/Docusate Sodium (Jinny-Colace) 1 tab TWICE A DAY ORAL 09/29/17 18:00 10/29/17 17:59 10/05/17 17:59 Zolpidem Tartrate (Ambien) 5 mg HSPRN PRN ORAL Insomnia 10/03/17 09:30 10/10/17 09:29 10/04/17 23:16 CHERYLE WOLFE Oct 06, 2017 12:31
[2017-10-06 16:00] VITALS: BP 101/67
[2017-10-06] MEDS ORDERED: Tubing IV Secondary IV ONE (18:32)
[2017-10-06] MEDS ORDERED: D5NS 1000ml IV ONE (18:32)
[2017-10-06 20:00] VITALS: BP 108/60
[2017-10-06] MEDS ORDERED: TPN IV SCH (20:00)
[2017-10-06] MEDS ORDERED: FAT EMULSION 20% IV SCH (20:00)
[2017-10-06] MEDS: Dyna-Hex 2% Top Sol 2oz TOPIC SCH (21:32)
[2017-10-06] MEDS: Betadine 4oz Bottle TOPIC SCH (22:20)
[2017-10-06] MEDS: Zolpidem 5mg tab ORAL PRN (22:20)
[2017-10-07] VITALS: BP 104/72
[2017-10-07] MEDS: HYDROmorphone 4mg tab ORAL PRN ×6 (01:42→23:29)
[2017-10-07 04:00] VITALS: BP 98/64
[2017-10-07] MEDS: Ampicillin/Sulbactam Sod 3 GM in NS 110 ML IVPB SCH ×4 (05:47→23:32)
[2017-10-07] MEDS: NovoLOG Insulin Flexpen SUBQ SCH ×4 (05:55→20:37)
[2017-10-07 08:15] VITALS: BP 95/60
--- NOTE | 2017-10-07 08:29 | General Progress Note ---
Assessment/Plan Problem List: (1) Perforated sigmoid colon ICD Codes: K63.1 - Perforation of intestine (nontraumatic) SNOMED: 259240475 (2) Perforation of cecum ICD Codes: K63.1 - Perforation of intestine (nontraumatic) SNOMED: 585509507 Assessment/Plan post op care fu surgical recs PO diet per surgery TPN >> will taper once patient begins tolerate PO - cont Marinol fu calorie count>>> incomplete electrolyte correction PT evaluation pain control fu labs Subjective ROS Limited/Unobtainable: Yes Allergies: Coded Allergies: No Known Allergies (Unverified , 09/10/17) Subjective abd pain Objective Last 24 Hour Vital Signs Date Time Temp Pulse Resp B/P (MAP) Pulse Ox O2 Delivery O2 Flow Rate FiO2 10/07/17 04:00 98.1 101 20 98/64 98 Room Air 10/07/17 00:00 97.9 103 18 104/72 97 Room Air 10/06/17 20:00 97.3 106 18 108/60 100 Room Air 10/06/17 16:00 98.8 108 20 101/67 100 10/06/17 12:15 97.1 70 20 96/74 97 Intake and Output 10/06/17 10/07/17 19:00 07:00 Intake Total 210 ml 610 ml Balance 210 ml 610 ml IV Total 210 ml 610 ml # Voids 1 1 Height (Feet): 5 Height (Inches): 3.00 Weight (Pounds): 72 General Appearance: alert EENT: normal ENT inspection Neck: supple Cardiovascular: normal rate Respiratory/Chest: decreased breath sounds Abdomen: other - post surgical, soft Extremities: non-tender WINNIE WEATHERS Oct 07, 2017 08:29
[2017-10-07 08:44] LABS: HEMATOCRIT 31.4 % (37.0-47.0); HEMOGLOBIN 10.5 G/DL (12.0-16.0); MEAN CORPUSCULAR VOLUME 89 FL (80-99); PLATELET COUNT 275 K/UL (150-450); RED BLOOD COUNT 3.52 M/UL (4.20-5.40); RED CELL DISTRIBUTION WIDTH 16.4 % (11.6-14.8); WHITE BLOOD COUNT 12.2 K/UL (4.8-10.8)
--- NOTE | 2017-10-07 08:53 | Pulmonology Progress Note ---
Assessment/Plan Assessment/Plan ASSESSMENT Acute abdominal pain 2 to perforation Perforated cecum and rectosigmoid s/p exp laparotomy with partial R hemicolectomy peritonitis with E coli, Enterococci, Jennyfer and Prevotella metastatic cervical Ca GI bleeding anemia due to acute blood loss ( required blood transfusion) anemia of chronic disease severe protein calorie malnutrition PLAN OF CARE [facility] floor still with leukocytosis, poor oral intake s/p emergent surgery surgery follows TPN f/up CT A/P noted calorie count Marinol Abx, ID follows, IS at the bedside and encourage to use Pain management wound care O2 HHN prn DVT prophylaxis monitor HH, anemia w/up c/w anemia of chronic disease, s/p 3 u PRBC, goal to keep Hgb above 7, transfuse if below or symptomatic , heme/onco follows nutritional support overall prognosis poor need placement consider comfort care case discussed and evaluated by supervising physician Subjective Allergies: Coded Allergies: No Known Allergies (Unverified , 09/10/17) Subjective Poor oral intake WBC trending down, afebrile pain controlled Objective Last 24 Hour Vital Signs Date Time Temp Pulse Resp B/P (MAP) Pulse Ox O2 Delivery O2 Flow Rate FiO2 10/07/17 08:15 97.7 73 18 95/60 99 Room Air 10/07/17 04:00 98.1 101 20 98/64 98 Room Air 10/07/17 00:00 97.9 103 18 104/72 97 Room Air 10/06/17 20:00 97.3 106 18 108/60 100 Room Air 10/06/17 16:00 98.8 108 20 101/67 100 10/06/17 12:15 97.1 70 20 96/74 97 Intake and Output 10/06/17 10/07/17 19:00 07:00 Intake Total 210 ml 610 ml Balance 210 ml 610 ml IV Total 210 ml 610 ml # Voids 1 1 Objective Status: awake, A/A/O x 3 cachectic female in NAD, chronically ill looking HEENT: atraumatic, normocephalic, Neck: full ROM, trachea midline, R jugular CL intact Lungs: clear Heart: HR/BP stable Abdomen: soft, + BS, abdominal dressing C/D/I ; Extremities: no C/C/E, Laboratory Tests 10/07/17 08:25: White Blood Count 12.2H, Red Blood Count 3.52L, Hemoglobin 10.5L, Hematocrit 31.4L, Mean Corpuscular Volume 89, Mean Corpuscular Hemoglobin 29.8, Mean Corpuscular Hemoglobin Concent 33.4, Red Cell Distribution Width 16.4H, Platelet Count 275, Mean Platelet Volume 8.5, Neutrophils (%) (Auto) , Lymphocytes (%) (Auto) , Monocytes (%) (Auto) , Eosinophils (%) (Auto) , Basophils (%) (Auto) , Neutrophils % (Manual) [Pending], Lymphocytes % (Manual) [Pending], Platelet Estimate [Pending], Platelet Morphology [Pending], Sodium Level [Pending], Potassium Level [Pending], Chloride Level [Pending], Carbon Dioxide Level [Pending], Blood Urea Nitrogen [Pending], Creatinine [Pending], Estimat Glomerular Filtration Rate [Pending], Glucose Level [Pending], Calcium Level [Pending] Current Medications Medications (Trade) Dose Ordered Sig/[place] Route PRN Reason Start Time Stop Time Status Last Admin Dose Admin Acetaminophen (Tylenol) 650 mg Q4H PRN RECTAL FEVER 09/25/17 16:30 10/22/17 16:29 Ampicillin Sodium/ Sulbactam Sodium 3 gm/Sodium Chloride 110 ml @ 220 mls/hr Q6HR IVPB 10/01/17 12:00 10/08/17 11:59 10/07/17 05:47 Chlorhexidine Gluconate (Kenia-Hex 2%) 1 applic DAILY@2000 TOPIC 09/25/17 20:00 10/24/17 19:59 10/06/17 21:32 Dextrose (Dextrose 50%) No Dose PRN IV hypoglycemia 09/28/17 00:00 10/28/17 00:00 Dronabinol (Marinol) 2.5 mg TID ORAL 10/04/17 13:00 11/03/17 12:59 10/06/17 17:53 Fat Emulsion Intravenous 168 ml/Amino Acids/ Electrolytes/ Dextrose 1,200 ml @ 50 mls/hr Q24H IV 10/06/17 20:00 11/05/17 19:59 10/06/17 21:42 Fluconazole (Diflucan) 200 mg DAILY ORAL 10/04/17 14:00 10/11/17 13:59 10/06/17 08:37 Gabapentin (Neurontin) 100 mg THREE TIMES A DAY ORAL 10/01/17 15:00 10/31/17 14:59 10/06/17 17:53 Heparin Sodium (Porcine) (Heparin 5000 units/ml) 5,000 units EVERY 12 HOURS SUBQ 09/25/17 21:00 10/23/17 08:59 10/06/17 21:42 Hydromorphone HCl (Dilaudid) 2 mg Q3H PRN IVP Severe Breakthru Pain (>7) 10/05/17 16:30 10/12/17 16:29 10/07/17 02:43 Hydromorphone HCl (Dilaudid) 4 mg Q4H PRN ORAL Severe Pain (Pain Scale 7-10) 10/03/17 09:30 10/10/17 09:29 10/07/17 05:45 Insulin Aspart (NovoLOG) BEFORE MEALS AND HS SUBQ 10/05/17 11:30 11/04/17 11:29 10/07/17 05:55 Ondansetron HCl (Zofran) 4 mg Q6H PRN IVP Nausea & Vomiting 09/25/17 16:30 10/22/17 16:29 Pantoprazole (Protonix) 40 mg DAILY IVP 09/26/17 09:00 10/23/17 08:59 10/06/17 08:37 Phytonadione (Vitamin K) 10 mg QWEEK SUBQ 09/27/17 20:00 10/27/17 19:59 10/04/17 20:02 Povidone Iodine (Betadine Annamaria) 1 applic DAILY@2100 TOPIC 10/02/17 21:00 11/01/17 20:59 10/06/17 22:20 Senna/Docusate Sodium (Jinny-Colace) 1 tab TWICE A DAY ORAL 09/29/17 18:00 10/29/17 17:59 10/05/17 17:59 Zolpidem Tartrate (Ambien) 5 mg HSPRN PRN ORAL Insomnia 10/03/17 09:30 10/10/17 09:29 10/06/17 22:20 [facility]Nikole NP Oct 07, 2017 08:53
--- NOTE | 2017-10-07 08:58 | General Progress Note ---
Assessment/Plan Problem List: (1) Anemia ICD Codes: D64.9 - Anemia, unspecified SNOMED: 798788545 Qualifiers: Qualified Codes: D64.9 - Anemia, unspecified (2) GI bleed ICD Codes: K92.2 - Gastrointestinal hemorrhage, unspecified SNOMED: 46346506 Qualifiers: Qualified Codes: K92.2 - Gastrointestinal hemorrhage, unspecified (3) Abdominal pain ICD Codes: R10.9 - Unspecified abdominal pain SNOMED: 11884955 Qualifiers: Qualified Codes: R10.13 - Epigastric pain Status: unchanged Assessment/Plan ot pt diet cbc bmp am gi f/u id eval dc plan Subjective Constitutional: Reports: weakness Allergies: Coded Allergies: No Known Allergies (Unverified , 09/10/17) All Systems: reviewed and negative except above Subjective sl nauseus Objective Last 24 Hour Vital Signs Date Time Temp Pulse Resp B/P (MAP) Pulse Ox O2 Delivery O2 Flow Rate FiO2 10/07/17 08:15 97.7 73 18 95/60 99 Room Air 10/07/17 04:00 98.1 101 20 98/64 98 Room Air 10/07/17 00:00 97.9 103 18 104/72 97 Room Air 10/06/17 20:00 97.3 106 18 108/60 100 Room Air 10/06/17 16:00 98.8 108 20 101/67 100 10/06/17 12:15 97.1 70 20 96/74 97 Intake and Output 10/06/17 10/07/17 19:00 07:00 Intake Total 210 ml 610 ml Balance 210 ml 610 ml IV Total 210 ml 610 ml # Voids 1 1 Laboratory Tests 10/07/17 08:25: White Blood Count 12.2H, Red Blood Count 3.52L, Hemoglobin 10.5L, Hematocrit 31.4L, Mean Corpuscular Volume 89, Mean Corpuscular Hemoglobin 29.8, Mean Corpuscular Hemoglobin Concent 33.4, Red Cell Distribution Width 16.4H, Platelet Count 275, Mean Platelet Volume 8.5, Neutrophils (%) (Auto) , Lymphocytes (%) (Auto) , Monocytes (%) (Auto) , Eosinophils (%) (Auto) , Basophils (%) (Auto) , Neutrophils % (Manual) [Pending], Lymphocytes % (Manual) [Pending], Platelet Estimate [Pending], Platelet Morphology [Pending], Sodium Level [Pending], Potassium Level [Pending], Chloride Level [Pending], Carbon Dioxide Level [Pending], Blood Urea Nitrogen [Pending], Creatinine [Pending], Estimat Glomerular Filtration Rate [Pending], Glucose Level [Pending], Calcium Level [Pending] Height (Feet): 5 Height (Inches): 3.00 Weight (Pounds): 72 General Appearance: lethargic EENT: normal ENT inspection Neck: normal alignment Cardiovascular: normal peripheral pulses, normal rate, regular rhythm Respiratory/Chest: chest wall non-tender, lungs clear, normal breath sounds Abdomen: hypoactive bowel sounds Extremities: normal inspection Edema: no edema noted Arm (L), no edema noted Arm (R), no edema noted Leg (L), no edema noted Leg (R), no edema noted Pedal (L), no edema noted Pedal (R), no edema noted Generalized Neurologic: motor weakness Skin: normal pigmentation, warm/dry SONIDO FELICIANO Oct 07, 2017 08:58
[2017-10-07 09:31] LABS: ANION GAP 7 mmol/L (5-15); BLOOD UREA NITROGEN 10 mg/dL (7-18); CALCIUM 9.7 MG/DL (8.5-10.1); CARBON DIOXIDE 29 MMOL/L (21-32); CHLORIDE 98 MMOL/L (98-107); CREATININE 0.5 MG/DL (0.55-1.30); POTASSIUM 4.1 MMOL/L (3.5-5.1); SODIUM 134 MMOL/L (136-145)
[2017-10-07] MEDS: Pantoprazole Inj IVP SCH (09:57)
[2017-10-07] MEDS: Fluconazole 100mg tab ORAL SCH (09:58)
[2017-10-07] MEDS: Docusate Sod/Senna tab ORAL SCH ×2 (09:58→17:18)
[2017-10-07] MEDS: Dronabinol 2.5mg Cap ORAL SCH ×3 (09:58→17:19)
[2017-10-07] MEDS: Heparin 5000 units/ml inj SUBQ SCH ×2 (10:06→20:35)
[2017-10-07 12:00] VITALS: BP 106/71
--- NOTE | 2017-10-07 14:50 | General Surgery Progress Note ---
General Surgery-Progress Note Subjective Symptoms: improved Objective Last 24 Hour Vital Signs Date Time Temp Pulse Resp B/P (MAP) Pulse Ox O2 Delivery O2 Flow Rate FiO2 10/07/17 12:00 98.0 99 17 106/71 99 Room Air 10/07/17 08:15 97.7 73 18 95/60 99 Room Air 10/07/17 04:00 98.1 101 20 98/64 98 Room Air 10/07/17 00:00 97.9 103 18 104/72 97 Room Air 10/06/17 20:00 97.3 106 18 108/60 100 Room Air 10/06/17 16:00 98.8 108 20 101/67 100 I&O Intake and Output 10/06/17 10/07/17 19:00 07:00 Intake Total 210 ml 610 ml Balance 210 ml 610 ml IV Total 210 ml 610 ml # Voids 1 1 Drains: none Respiratory: clear Abdomen: soft, flat, non-tender, present bowel sounds Extremities: no tenderness Laboratory Tests Test 10/07/17 08:25 White Blood Count 12.2 K/UL (4.8-10.8) H Red Blood Count 3.52 M/UL (4.20-5.40) L Hemoglobin 10.5 G/DL (12.0-16.0) L Hematocrit 31.4 % (37.0-47.0) L Mean Corpuscular Volume 89 FL (80-99) Mean Corpuscular Hemoglobin 29.8 PG (27.0-31.0) Mean Corpuscular Hemoglobin Concent 33.4 G/DL (32.0-36.0) Red Cell Distribution Width 16.4 % (11.6-14.8) H Platelet Count 275 K/UL (150-450) Mean Platelet Volume 8.5 FL (6.5-10.1) Neutrophils (%) (Auto) % (45.0-75.0) Lymphocytes (%) (Auto) % (20.0-45.0) Monocytes (%) (Auto) % (1.0-10.0) Eosinophils (%) (Auto) % (0.0-3.0) Basophils (%) (Auto) % (0.0-2.0) Differential Total Cells Counted 100 Neutrophils % (Manual) 95 % (45-75) H Lymphocytes % (Manual) 3 % (20-45) L Monocytes % (Manual) 2 % (1-10) Eosinophils % (Manual) 0 % (0-3) Basophils % (Manual) 0 % (0-2) Band Neutrophils 0 % (0-8) Platelet Estimate Adequate Platelet Morphology Normal Hypochromasia 1+ Anisocytosis 1+ Sodium Level 134 MMOL/L (136-145) L Potassium Level 4.1 MMOL/L (3.5-5.1) Chloride Level 98 MMOL/L (98-107) Carbon Dioxide Level 29 MMOL/L (21-32) Anion Gap 7 mmol/L (5-15) Blood Urea Nitrogen 10 mg/dL (7-18) Creatinine 0.5 MG/DL (0.55-1.30) L Estimat Glomerular Filtration Rate > 60 mL/min (>60) Glucose Level 118 MG/DL (74-106) H Calcium Level 9.7 MG/DL (8.5-10.1) Assessment Post-op Diagnosis perforation of cecum and recto-sigmoid Plan Additional Comments discharge planning DWAYNE OLIVER Oct 07, 2017 14:50
[2017-10-07 16:08] VITALS: BP 101/66
[2017-10-07] MEDS ORDERED: FAT EMULSION 20% IV SCH (20:00)
[2017-10-07] MEDS ORDERED: TPN IV SCH (20:00)
[2017-10-07 20:22] VITALS: BP 97/62
[2017-10-07] MEDS: Dyna-Hex 2% Top Sol 2oz TOPIC SCH (20:31)
[2017-10-07] MEDS: Betadine 4oz Bottle TOPIC SCH (20:31)
[2017-10-08 00:25] VITALS: BP 98/59
--- NOTE | 2017-10-08 02:06 | General Progress Note ---
Assessment/Plan Assessment/Plan # Leukocytosis is likely reactive from Acute abdominal pain 2 to perforation with perforated cecum and rectosigmoid s/p exp laparotomy with partial R hemicolectomy --> wbc count continues to improve. --> On pain control for abd pain. --> continue to closely monitor. # Anemia of chronic disease --> w/u has been reviewed --> Blood transfusion not required unless symptomatic or hgb <7 --> Has not required blood transfusion as hgb >8 # Cervical Ca s/p surgery and radiation, has not received any chemotherapy recently --> Monitor. # Thrombocytosis is likely related to chronic reactive process --> resolved # Anemia of GI bleeding --> GI followup. # Severe protein calorie malnutrition Subjective Date patient seen: Oct 06, 2017 Constitutional: Denies: no symptoms, chills, diaphoresis, fever, malaise, weakness, other HEENT: Denies: no symptoms, eye pain, blurred vision, tearing, double vision, ear pain, ear discharge, nose pain, nose congestion, throat pain, throat swelling, mouth pain, mouth swelling, other Cardiovascular: Denies: no symptoms, chest pain, edema, irregular heart rate, lightheadedness, palpitations, syncope, other Respiratory: Denies: no symptoms, cough, orthopnea, shortness of breath, SOB with excertion, SOB at rest, sputum, stridor, wheezing, other Gastrointestinal/Abdominal: Denies: no symptoms, abdomen distended, abdominal pain, black stools, tarry stools, blood in stool, constipated, diarrhea, difficulty swallowing, nausea, poor appetite, poor fluid intake, rectal bleeding , vomiting, other Hematologic/Lymphatic: Reports: anemia Allergies: Coded Allergies: No Known Allergies (Unverified , 09/10/17) Subjective On pain management. No fever or chills. Objective Last 24 Hour Vital Signs Date Time Temp Pulse Resp B/P (MAP) Pulse Ox O2 Delivery O2 Flow Rate FiO2 10/08/17 00:25 98.1 100 18 98/59 98 10/07/17 20:22 98.2 102 18 97/62 98 10/07/17 16:08 97.5 105 20 101/66 98 Room Air 10/07/17 12:00 98.0 99 17 106/71 99 Room Air 10/07/17 08:15 97.7 73 18 95/60 99 Room Air 10/07/17 04:00 98.1 101 20 98/64 98 Room Air 10/07/17 00:00 97.9 103 18 104/72 97 Room Air 10/06/17 20:00 97.3 106 18 108/60 100 Room Air 10/06/17 16:00 98.8 108 20 101/67 100 10/06/17 12:15 97.1 70 20 96/74 97 10/06/17 08:21 98.0 98 19 93/56 98 10/06/17 07:08 97.0 10/06/17 06:28 97.0 10/06/17 04:00 98.3 19 100/60 98 Room Air Last 24 Hour Vital Signs Date Time Temp Pulse Resp B/P (MAP) Pulse Ox O2 Delivery O2 Flow Rate FiO2 10/08/17 00:25 98.1 100 18 98/59 98 10/07/17 20:22 98.2 102 18 97/62 98 10/07/17 16:08 97.5 105 20 101/66 98 Room Air 10/07/17 12:00 98.0 99 17 106/71 99 Room Air 10/07/17 08:15 97.7 73 18 95/60 99 Room Air 10/07/17 04:00 98.1 101 20 98/64 98 Room Air Intake and Output 10/07/17 10/08/17 19:00 07:00 Intake Total 240 ml Balance 240 ml Intake Oral 240 ml # Voids 4 Labs Test 10/05/17 08:00 10/06/17 08:10 10/07/17 08:25 White Blood Count 15.1 K/UL (4.8-10.8) 13.6 K/UL (4.8-10.8) 12.2 K/UL (4.8-10.8) Red Blood Count 3.78 M/UL (4.20-5.40) 3.53 M/UL (4.20-5.40) 3.52 M/UL (4.20-5.40) Hemoglobin 11.3 G/DL (12.0-16.0) 10.4 G/DL (12.0-16.0) 10.5 G/DL (12.0-16.0) Hematocrit 33.7 % (37.0-47.0) 31.6 % (37.0-47.0) 31.4 % (37.0-47.0) Mean Corpuscular Volume 89 FL (80-99) 90 FL (80-99) 89 FL (80-99) Mean Corpuscular Hemoglobin 29.9 PG (27.0-31.0) 29.5 PG (27.0-31.0) 29.8 PG (27.0-31.0) Mean Corpuscular Hemoglobin Concent 33.6 G/DL (32.0-36.0) 32.9 G/DL (32.0-36.0) 33.4 G/DL (32.0-36.0) Red Cell Distribution Width 16.4 % (11.6-14.8) 16.3 % (11.6-14.8) 16.4 % (11.6-14.8) Platelet Count 280 K/UL (150-450) 280 K/UL (150-450) 275 K/UL (150-450) Mean Platelet Volume 8.0 FL (6.5-10.1) 7.4 FL (6.5-10.1) 8.5 FL (6.5-10.1) Neutrophils (%) (Auto) % (45.0-75.0) % (45.0-75.0) % (45.0-75.0) Lymphocytes (%) (Auto) % (20.0-45.0) % (20.0-45.0) % (20.0-45.0) Monocytes (%) (Auto) % (1.0-10.0) % (1.0-10.0) % (1.0-10.0) Eosinophils (%) (Auto) % (0.0-3.0) % (0.0-3.0) % (0.0-3.0) Basophils (%) (Auto) % (0.0-2.0) % (0.0-2.0) % (0.0-2.0) Differential Total Cells Counted 100 100 100 Neutrophils % (Manual) 84 % (45-75) 93 % (45-75) 95 % (45-75) Lymphocytes % (Manual) 6 % (20-45) 2 % (20-45) 3 % (20-45) Monocytes % (Manual) 9 % (1-10) 3 % (1-10) 2 % (1-10) Eosinophils % (Manual) 1 % (0-3) 2 % (0-3) 0 % (0-3) Basophils % (Manual) 0 % (0-2) 0 % (0-2) 0 % (0-2) Band Neutrophils 0 % (0-8) 0 % (0-8) 0 % (0-8) Platelet Estimate Adequate Adequate Adequate Platelet Morphology Normal Normal Normal Anisocytosis 1+ 1+ Sodium Level 132 MMOL/L (136-145) 131 MMOL/L (136-145) 134 MMOL/L (136-145) Potassium Level 4.1 MMOL/L (3.5-5.1) 4.4 MMOL/L (3.5-5.1) 4.1 MMOL/L (3.5-5.1) Chloride Level 98 MMOL/L (98-107) 97 MMOL/L (98-107) 98 MMOL/L (98-107) Carbon Dioxide Level 26 MMOL/L (21-32) 26 MMOL/L (21-32) 29 MMOL/L (21-32) Anion Gap 8 mmol/L (5-15) 8 mmol/L (5-15) 7 mmol/L (5-15) Blood Urea Nitrogen 11 mg/dL (7-18) 16 mg/dL (7-18) 10 mg/dL (7-18) Creatinine 0.5 MG/DL (0.55-1.30) 0.5 MG/DL (0.55-1.30) 0.5 MG/DL (0.55-1.30) Estimat Glomerular Filtration Rate > 60 mL/min (>60) > 60 mL/min (>60) > 60 mL/min (>60) Glucose Level 125 MG/DL (74-106) 81 MG/DL (74-106) 118 MG/DL (74-106) Calcium Level 9.5 MG/DL (8.5-10.1) 9.5 MG/DL (8.5-10.1) 9.7 MG/DL (8.5-10.1) Hypochromasia 1+ 1+ Laboratory Tests 2/3/18 08:25: White Blood Count 12.2H, Red Blood Count 3.52L, Hemoglobin 10.5L, Hematocrit 31.4L, Mean Corpuscular Volume 89, Mean Corpuscular Hemoglobin 29.8, Mean Corpuscular Hemoglobin Concent 33.4, Red Cell Distribution Width 16.4H, Platelet Count 275, Mean Platelet Volume 8.5, Neutrophils (%) (Auto) , Lymphocytes (%) (Auto) , Monocytes (%) (Auto) , Eosinophils (%) (Auto) , Basophils (%) (Auto) , Differential Total Cells Counted 100, Neutrophils % ( Manual) 95H, Lymphocytes % (Manual) 3L, Monocytes % (Manual) 2, Eosinophils % ( Manual) 0, Basophils % (Manual) 0, Band Neutrophils 0, Platelet Estimate Adequate, Platelet Morphology Normal, Hypochromasia 1+, Anisocytosis 1+, Sodium Level 134L, Potassium Level 4.1, Chloride Level 98, Carbon Dioxide Level 29, Anion Gap 7, Blood Urea Nitrogen 10, Creatinine 0.5L, Estimat Glomerular Filtration Rate > 60, Glucose Level 118H, Calcium Level 9.7 Height (Feet): 5 Height (Inches): 3.00 Weight (Pounds): 72 General Appearance: lethargic Cardiovascular: normal rate Respiratory/Chest: decreased breath sounds Abdomen: soft Chris Spencer Oct 08, 2017 02:06
--- NOTE | 2017-10-08 02:08 | General Progress Note ---
Assessment/Plan Status: stable Assessment/Plan # Leukocytosis is likely reactive from Acute abdominal pain 2 to perforation with perforated cecum and rectosigmoid s/p exp laparotomy with partial R hemicolectomy --> resolved today. --> On pain control for abd pain. --> continue to closely monitor. # Anemia of chronic disease --> w/u has been reviewed, mild at this time --> Blood transfusion not required unless symptomatic or hgb <7 --> Has not required blood transfusion as hgb >8 # Cervical Ca s/p surgery and radiation, has not received any chemotherapy recently --> Monitor. # Thrombocytosis is likely related to chronic reactive process --> resolved # Anemia of GI bleeding --> GI followup. # Severe protein calorie malnutrition Subjective Date patient seen: Oct 07, 2017 Constitutional: Denies: no symptoms, chills, diaphoresis, fever, malaise, weakness, other HEENT: Denies: no symptoms, eye pain, blurred vision, tearing, double vision, ear pain, ear discharge, nose pain, nose congestion, throat pain, throat swelling, mouth pain, mouth swelling, other Cardiovascular: Denies: no symptoms, chest pain, edema, irregular heart rate, lightheadedness, palpitations, syncope, other Respiratory: Denies: no symptoms, cough, orthopnea, shortness of breath, SOB with excertion, SOB at rest, sputum, stridor, wheezing, other Gastrointestinal/Abdominal: Denies: no symptoms, abdomen distended, abdominal pain, black stools, tarry stools, blood in stool, constipated, diarrhea, difficulty swallowing, nausea, poor appetite, poor fluid intake, rectal bleeding , vomiting, other Genitourinary: Denies: no symptoms, burning, discharge, frequency, flank pain, hematuria, incontinence, pain, urgency, other Hematologic/Lymphatic: Reports: anemia Allergies: Coded Allergies: No Known Allergies (Unverified , 09/10/17) Subjective Leukocytosis has resolved. No new events. Objective Last 24 Hour Vital Signs Date Time Temp Pulse Resp B/P (MAP) Pulse Ox O2 Delivery O2 Flow Rate FiO2 10/08/17 00:25 98.1 100 18 98/59 98 10/07/17 20:22 98.2 102 18 97/62 98 10/07/17 16:08 97.5 105 20 101/66 98 Room Air 10/07/17 12:00 98.0 99 17 106/71 99 Room Air 10/07/17 08:15 97.7 73 18 95/60 99 Room Air 10/07/17 04:00 98.1 101 20 98/64 98 Room Air Intake and Output 10/07/17 10/08/17 19:00 07:00 Intake Total 240 ml Balance 240 ml Intake Oral 240 ml # Voids 4 Laboratory Tests 10/07/17 08:25: White Blood Count 12.2H, Red Blood Count 3.52L, Hemoglobin 10.5L, Hematocrit 31.4L, Mean Corpuscular Volume 89, Mean Corpuscular Hemoglobin 29.8, Mean Corpuscular Hemoglobin Concent 33.4, Red Cell Distribution Width 16.4H, Platelet Count 275, Mean Platelet Volume 8.5, Neutrophils (%) (Auto) , Lymphocytes (%) (Auto) , Monocytes (%) (Auto) , Eosinophils (%) (Auto) , Basophils (%) (Auto) , Differential Total Cells Counted 100, Neutrophils % ( Manual) 95H, Lymphocytes % (Manual) 3L, Monocytes % (Manual) 2, Eosinophils % ( Manual) 0, Basophils % (Manual) 0, Band Neutrophils 0, Platelet Estimate Adequate, Platelet Morphology Normal, Hypochromasia 1+, Anisocytosis 1+, Sodium Level 134L, Potassium Level 4.1, Chloride Level 98, Carbon Dioxide Level 29, Anion Gap 7, Blood Urea Nitrogen 10, Creatinine 0.5L, Estimat Glomerular Filtration Rate > 60, Glucose Level 118H, Calcium Level 9.7 Height (Feet): 5 Height (Inches): 3.00 Weight (Pounds): 72 General Appearance: no apparent distress, lethargic Chris Spencer Oct 08, 2017 02:08
[2017-10-08] MEDS: HYDROmorphone 4mg tab ORAL PRN ×4 (03:31→22:59)
[2017-10-08 04:31] VITALS: BP 100/63
--- NOTE | 2017-10-08 05:38 | General Progress Note ---
Assessment/Plan Problem List: (1) Anemia ICD Codes: D64.9 - Anemia, unspecified SNOMED: 501565943 Qualifiers: Qualified Codes: D64.9 - Anemia, unspecified (2) GI bleed ICD Codes: K92.2 - Gastrointestinal hemorrhage, unspecified SNOMED: 71436329 Qualifiers: Qualified Codes: K92.2 - Gastrointestinal hemorrhage, unspecified (3) Abdominal pain ICD Codes: R10.9 - Unspecified abdominal pain SNOMED: 48800938 Qualifiers: Qualified Codes: R10.13 - Epigastric pain Status: unchanged Assessment/Plan ot pt diet cbc bmp am gi f/u id eval dc plan Subjective Constitutional: Reports: weakness Allergies: Coded Allergies: No Known Allergies (Unverified , 09/10/17) All Systems: reviewed and negative except above Subjective sl nauseus Objective Last 24 Hour Vital Signs Date Time Temp Pulse Resp B/P (MAP) Pulse Ox O2 Delivery O2 Flow Rate FiO2 10/08/17 04:31 98.7 113 17 100/63 98 10/08/17 00:25 98.1 100 18 98/59 98 10/07/17 20:22 98.2 102 18 97/62 98 10/07/17 16:08 97.5 105 20 101/66 98 Room Air 10/07/17 12:00 98.0 99 17 106/71 99 Room Air 10/07/17 08:15 97.7 73 18 95/60 99 Room Air Intake and Output 10/07/17 10/08/17 19:00 07:00 Intake Total 240 ml Balance 240 ml Intake Oral 240 ml # Voids 4 Laboratory Tests 10/07/17 08:25: White Blood Count 12.2H, Red Blood Count 3.52L, Hemoglobin 10.5L, Hematocrit 31.4L, Mean Corpuscular Volume 89, Mean Corpuscular Hemoglobin 29.8, Mean Corpuscular Hemoglobin Concent 33.4, Red Cell Distribution Width 16.4H, Platelet Count 275, Mean Platelet Volume 8.5, Neutrophils (%) (Auto) , Lymphocytes (%) (Auto) , Monocytes (%) (Auto) , Eosinophils (%) (Auto) , Basophils (%) (Auto) , Differential Total Cells Counted 100, Neutrophils % ( Manual) 95H, Lymphocytes % (Manual) 3L, Monocytes % (Manual) 2, Eosinophils % ( Manual) 0, Basophils % (Manual) 0, Band Neutrophils 0, Platelet Estimate Adequate, Platelet Morphology Normal, Hypochromasia 1+, Anisocytosis 1+, Sodium Level 134L, Potassium Level 4.1, Chloride Level 98, Carbon Dioxide Level 29, Anion Gap 7, Blood Urea Nitrogen 10, Creatinine 0.5L, Estimat Glomerular Filtration Rate > 60, Glucose Level 118H, Calcium Level 9.7 Height (Feet): 5 Height (Inches): 3.00 Weight (Pounds): 72 General Appearance: lethargic EENT: normal ENT inspection Neck: normal alignment Cardiovascular: normal peripheral pulses, normal rate, regular rhythm Respiratory/Chest: chest wall non-tender, lungs clear, normal breath sounds Abdomen: normal bowel sounds, non tender, soft Extremities: normal inspection Edema: no edema noted Arm (L), no edema noted Arm (R), no edema noted Leg (L), no edema noted Leg (R), no edema noted Pedal (L), no edema noted Pedal (R), no edema noted Generalized Neurologic: responsive, motor weakness Skin: normal pigmentation, warm/dry SONIDO FELICIANO Oct 08, 2017 05:38
[2017-10-08] MEDS: Ampicillin/Sulbactam Sod 3 GM in NS 110 ML IVPB SCH (06:31)
[2017-10-08] MEDS: NovoLOG Insulin Flexpen SUBQ SCH ×3 (06:36→16:30)
--- NOTE | 2017-10-08 08:16 | General Progress Note ---
Assessment/Plan Problem List: (1) Perforated sigmoid colon ICD Codes: K63.1 - Perforation of intestine (nontraumatic) SNOMED: 960272727 (2) Perforation of cecum ICD Codes: K63.1 - Perforation of intestine (nontraumatic) SNOMED: 187601797 Assessment/Plan post op care fu surgical recs PO diet per surgery TPN >> will taper once patient begins tolerate PO - cont Marinol fu calorie count>>> incomplete electrolyte correction PT evaluation pain control fu labs Subjective ROS Limited/Unobtainable: Yes Allergies: Coded Allergies: No Known Allergies (Unverified , 09/10/17) Subjective abd pain Objective Last 24 Hour Vital Signs Date Time Temp Pulse Resp B/P (MAP) Pulse Ox O2 Delivery O2 Flow Rate FiO2 10/08/17 04:31 98.7 113 17 100/63 98 10/08/17 00:25 98.1 100 18 98/59 98 10/07/17 20:22 98.2 102 18 97/62 98 10/07/17 16:08 97.5 105 20 101/66 98 Room Air 10/07/17 12:00 98.0 99 17 106/71 99 Room Air Intake and Output 10/07/17 10/08/17 19:00 07:00 Intake Total 240 ml 240 ml Output Total 10 ml Balance 240 ml 230 ml Intake Oral 240 ml 240 ml Stool Total 10 ml # Voids 4 2 Laboratory Tests 10/07/17 08:25: White Blood Count 12.2H, Red Blood Count 3.52L, Hemoglobin 10.5L, Hematocrit 31.4L, Mean Corpuscular Volume 89, Mean Corpuscular Hemoglobin 29.8, Mean Corpuscular Hemoglobin Concent 33.4, Red Cell Distribution Width 16.4H, Platelet Count 275, Mean Platelet Volume 8.5, Neutrophils (%) (Auto) , Lymphocytes (%) (Auto) , Monocytes (%) (Auto) , Eosinophils (%) (Auto) , Basophils (%) (Auto) , Differential Total Cells Counted 100, Neutrophils % ( Manual) 95H, Lymphocytes % (Manual) 3L, Monocytes % (Manual) 2, Eosinophils % ( Manual) 0, Basophils % (Manual) 0, Band Neutrophils 0, Platelet Estimate Adequate, Platelet Morphology Normal, Hypochromasia 1+, Anisocytosis 1+, Sodium Level 134L, Potassium Level 4.1, Chloride Level 98, Carbon Dioxide Level 29, Anion Gap 7, Blood Urea Nitrogen 10, Creatinine 0.5L, Estimat Glomerular Filtration Rate > 60, Glucose Level 118H, Calcium Level 9.7 10/08/17 07:20: White Blood Count [Pending], Red Blood Count [Pending], Hemoglobin [Pending], Hematocrit [Pending], Mean Corpuscular Volume [Pending], Mean Corpuscular Hemoglobin [Pending], Mean Corpuscular Hemoglobin Concent [Pending], Red Cell Distribution Width [Pending], Platelet Count [Pending], Mean Platelet Volume [ Pending], Neutrophils (%) (Auto) [Pending], Lymphocytes (%) (Auto) [Pending], Monocytes (%) (Auto) [Pending], Eosinophils (%) (Auto) [Pending], Basophils (%) (Auto) [Pending], Sodium Level [Pending], Potassium Level [Pending], Chloride Level [Pending], Carbon Dioxide Level [Pending], Blood Urea Nitrogen [Pending], Creatinine [Pending], Estimat Glomerular Filtration Rate [Pending], Glucose Level [Pending], Calcium Level [Pending], Total Bilirubin [Pending], Aspartate Amino Transf (AST/SGOT) [Pending], Alanine Aminotransferase (ALT/SGPT) [Pending] , Alkaline Phosphatase [Pending], Total Protein [Pending], Albumin [Pending], Globulin [Pending] Height (Feet): 5 Height (Inches): 3.00 Weight (Pounds): 72 General Appearance: no apparent distress EENT: normal ENT inspection Neck: supple Cardiovascular: normal rate Respiratory/Chest: decreased breath sounds Abdomen: other - post surgical Extremities: non-tender WINNIE WEATHERS Oct 08, 2017 08:16
[2017-10-08 08:17] VITALS: BP 105/68
[2017-10-08 08:22] LABS: HEMATOCRIT 30.3 % (37.0-47.0); HEMOGLOBIN 9.9 G/DL (12.0-16.0); MEAN CORPUSCULAR VOLUME 90 FL (80-99); PLATELET COUNT 294 K/UL (150-450); RED BLOOD COUNT 3.38 M/UL (4.20-5.40); RED CELL DISTRIBUTION WIDTH 16.4 % (11.6-14.8); WHITE BLOOD COUNT 11.5 K/UL (4.8-10.8)
[2017-10-08 08:40] LABS: ALANINE AMINOTRANSFERASE 85 U/L (12-78); ALBUMIN/GLOBULIN RATIO 0.4 (1.0-2.7); ALKALINE PHOSPHATASE 285 U/L (46-116); ANION GAP 7 mmol/L (5-15); ASPARTATE AMINO TRANSFERASE 31 U/L (15-37); BILIRUBIN,TOTAL 0.8 MG/DL (0.2-1.0); BLOOD UREA NITROGEN 11 mg/dL (7-18); CALCIUM 9.6 MG/DL (8.5-10.1); CARBON DIOXIDE 29 MMOL/L (21-32); CHLORIDE 98 MMOL/L (98-107); CREATININE 0.5 MG/DL (0.55-1.30); POTASSIUM 4.3 MMOL/L (3.5-5.1); SODIUM 134 MMOL/L (136-145)
[2017-10-08] MEDS: Pantoprazole Inj IVP SCH (08:41)
[2017-10-08] MEDS: Fluconazole 100mg tab ORAL SCH (08:41)
[2017-10-08] MEDS: Docusate Sod/Senna tab ORAL SCH ×2 (08:41→18:00)
[2017-10-08] MEDS: Dronabinol 2.5mg Cap ORAL SCH ×3 (08:42→18:28)
[2017-10-08] MEDS: Heparin 5000 units/ml inj SUBQ SCH ×2 (08:46→20:51)
--- NOTE | 2017-10-08 10:27 | Infectious Diseases Prog Note ---
Assessment/Plan Assessment/Plan A; Perforated bowel Peritonitis with E. coli, Enterococcus, C. albicans & Prevotella Cervical cancer, metastatic P: discontinue Unasyn , continue Fluconazole Poor prognosis, consider hospice Subjective ROS Limited/Unobtainable: Yes Allergies: Coded Allergies: No Known Allergies (Unverified , 09/10/17) Objective Vital Signs Last 24 Hour Vital Signs Date Time Temp Pulse Resp B/P (MAP) Pulse Ox O2 Delivery O2 Flow Rate FiO2 10/08/17 08:17 98.8 99 20 105/68 94 Room Air 10/08/17 04:31 98.7 113 17 100/63 98 10/08/17 00:25 98.1 100 18 98/59 98 10/07/17 20:22 98.2 102 18 97/62 98 10/07/17 16:08 97.5 105 20 101/66 98 Room Air 10/07/17 12:00 98.0 99 17 106/71 99 Room Air Height (Feet): 5 Height (Inches): 3.00 Weight (Pounds): 72 General Appearance: cachetic HEENT: mucous membranes moist Respiratory/Chest: lungs clear Cardiovascular: normal rate, other - RIJ line Abdomen: soft, non tender, other - s/p colostomy Extremities: no edema Neurologic/Psychiatric: other - sleeping Laboratory Tests Test 10/08/17 07:20 White Blood Count 11.5 K/UL (4.8-10.8) H Red Blood Count 3.38 M/UL (4.20-5.40) L Hemoglobin 9.9 G/DL (12.0-16.0) L Hematocrit 30.3 % (37.0-47.0) L Mean Corpuscular Volume 90 FL (80-99) Mean Corpuscular Hemoglobin 29.2 PG (27.0-31.0) Mean Corpuscular Hemoglobin Concent 32.5 G/DL (32.0-36.0) Red Cell Distribution Width 16.4 % (11.6-14.8) H Platelet Count 294 K/UL (150-450) Mean Platelet Volume 7.7 FL (6.5-10.1) Neutrophils (%) (Auto) % (45.0-75.0) Lymphocytes (%) (Auto) % (20.0-45.0) Monocytes (%) (Auto) % (1.0-10.0) Eosinophils (%) (Auto) % (0.0-3.0) Basophils (%) (Auto) % (0.0-2.0) Differential Total Cells Counted 100 Neutrophils % (Manual) 87 % (45-75) H Lymphocytes % (Manual) 7 % (20-45) L Monocytes % (Manual) 6 % (1-10) Eosinophils % (Manual) 0 % (0-3) Basophils % (Manual) 0 % (0-2) Band Neutrophils 0 % (0-8) Platelet Estimate Adequate Platelet Morphology Normal Hypochromasia 1+ Anisocytosis 1+ Sodium Level 134 MMOL/L (136-145) L Potassium Level 4.3 MMOL/L (3.5-5.1) Chloride Level 98 MMOL/L (98-107) Carbon Dioxide Level 29 MMOL/L (21-32) Anion Gap 7 mmol/L (5-15) Blood Urea Nitrogen 11 mg/dL (7-18) Creatinine 0.5 MG/DL (0.55-1.30) L Estimat Glomerular Filtration Rate > 60 mL/min (>60) Glucose Level 116 MG/DL (74-106) H Calcium Level 9.6 MG/DL (8.5-10.1) Total Bilirubin 0.8 MG/DL (0.2-1.0) Aspartate Amino Transf (AST/SGOT) 31 U/L (15-37) Alanine Aminotransferase (ALT/SGPT) 85 U/L (12-78) H Alkaline Phosphatase 285 U/L (46-116) H Total Protein 7.6 G/DL (6.4-8.2) Albumin 2.0 G/DL (3.4-5.0) L Globulin 5.6 g/dL Albumin/Globulin Ratio 0.4 (1.0-2.7) L Current Medications Medications (Trade) Dose Ordered Sig/Francoise Route PRN Reason Start Time Stop Time Status Last Admin Dose Admin Acetaminophen (Tylenol) 650 mg Q4H PRN RECTAL FEVER 09/25/17 16:30 10/22/17 16:29 Ampicillin Sodium/ Sulbactam Sodium 3 gm/Sodium Chloride 110 ml @ 220 mls/hr Q6HR IVPB 10/01/17 12:00 10/13/17 11:59 10/08/17 06:31 Chlorhexidine Gluconate (Kenia-Hex 2%) 1 applic DAILY@2000 TOPIC 09/25/17 20:00 10/24/17 19:59 10/07/17 20:31 Dextrose (Dextrose 50%) No Dose PRN IV hypoglycemia 09/28/17 00:00 10/28/17 00:00 Dronabinol (Marinol) 2.5 mg TID ORAL 10/04/17 13:00 11/03/17 12:59 10/08/17 08:42 Fat Emulsion Intravenous 168 ml/Amino Acids/ Electrolytes/ Dextrose 1,200 ml @ 50 mls/hr Q24H IV 10/07/17 20:00 11/06/17 19:59 10/07/17 20:34 Fluconazole (Diflucan) 200 mg DAILY ORAL 10/04/17 14:00 10/11/17 13:59 10/08/17 08:41 Gabapentin (Neurontin) 100 mg THREE TIMES A DAY ORAL 10/01/17 15:00 10/31/17 14:59 10/08/17 08:42 Heparin Sodium (Porcine) (Heparin 5000 units/ml) 5,000 units EVERY 12 HOURS SUBQ 09/25/17 21:00 10/23/17 08:59 10/08/17 08:46 Hydromorphone HCl (Dilaudid) 2 mg Q3H PRN IVP Severe Breakthru Pain (>7) 10/05/17 16:30 10/12/17 16:29 10/08/17 07:44 Hydromorphone HCl (Dilaudid) 4 mg Q4H PRN ORAL Severe Pain (Pain Scale 7-10) 10/03/17 09:30 10/10/17 09:29 10/08/17 08:42 Insulin Aspart (NovoLOG) BEFORE MEALS AND HS SUBQ 10/05/17 11:30 11/04/17 11:29 10/08/17 06:36 Ondansetron HCl (Zofran) 4 mg Q6H PRN IVP Nausea & Vomiting 09/25/17 16:30 10/22/17 16:29 Pantoprazole (Protonix) 40 mg DAILY IVP 09/26/17 09:00 10/23/17 08:59 10/08/17 08:41 Phytonadione (Vitamin K) 10 mg QWEEK SUBQ 09/27/17 20:00 10/27/17 19:59 10/04/17 20:02 Povidone Iodine (Betadine Annamaria) 1 applic DAILY@2100 TOPIC 10/02/17 21:00 11/01/17 20:59 10/06/17 22:20 Senna/Docusate Sodium (Jinny-Colace) 1 tab TWICE A DAY ORAL 09/29/17 18:00 10/29/17 17:59 10/08/17 08:41 Zolpidem Tartrate (Ambien) 5 mg HSPRN PRN ORAL Insomnia 10/03/17 09:30 10/10/17 09:29 10/06/17 22:20 CHERYLE WOLFE Oct 08, 2017 10:27
--- NOTE | 2017-10-08 11:00 | General Progress Note ---
Assessment/Plan Assessment/Plan (1) Intractable abdominal pain (2) Perforation of the cecum and the rectosigmoid (3) S/p Exploratory laparotomy and lysis of the adhesion (4) Partial right hemicolectomy with primary anastomosis (5) Resection of the rectosigmoid with Katerina pouch and colostomy (6) Cervical cancer Pt to be continued on Dilaudid D/w Dr. Ochoa and he concurred. Subjective Date patient seen: Oct 08, 2017 Allergies: Coded Allergies: No Known Allergies (Unverified , 09/10/17) Subjective REVIEW OF SYSTEMS: Denies rash, fever, chills, sweating, dizziness, drowsiness, blurred vision, sore throat, or change in her weight. Denies change in hearing. No bowel or bladder incontinence at this time. No dysuria. She is complaining of abdominal pain. SUBJECTIVE: Patient is in bed family at bed side. She continues to c/o severe pain which has been tolerated on the Dilaudid. Pt has discussed possible hospice care. Objective Last 24 Hour Vital Signs Date Time Temp Pulse Resp B/P (MAP) Pulse Ox O2 Delivery O2 Flow Rate FiO2 10/08/17 08:17 98.8 99 20 105/68 94 Room Air 10/08/17 04:31 98.7 113 17 100/63 98 10/08/17 00:25 98.1 100 18 98/59 98 10/07/17 20:22 98.2 102 18 97/62 98 10/07/17 16:08 97.5 105 20 101/66 98 Room Air 10/07/17 12:00 98.0 99 17 106/71 99 Room Air Intake and Output 10/07/17 10/08/17 19:00 07:00 Intake Total 240 ml 240 ml Output Total 10 ml Balance 240 ml 230 ml Intake Oral 240 ml 240 ml Stool Total 10 ml # Voids 4 2 Laboratory Tests 10/08/17 07:20: White Blood Count 11.5H, Red Blood Count 3.38L, Hemoglobin 9.9L, Hematocrit 30.3L, Mean Corpuscular Volume 90, Mean Corpuscular Hemoglobin 29.2, Mean Corpuscular Hemoglobin Concent 32.5, Red Cell Distribution Width 16.4H, Platelet Count 294, Mean Platelet Volume 7.7, Neutrophils (%) (Auto) , Lymphocytes (%) (Auto) , Monocytes (%) (Auto) , Eosinophils (%) (Auto) , Basophils (%) (Auto) , Differential Total Cells Counted 100, Neutrophils % ( Manual) 87H, Lymphocytes % (Manual) 7L, Monocytes % (Manual) 6, Eosinophils % ( Manual) 0, Basophils % (Manual) 0, Band Neutrophils 0, Platelet Estimate Adequate, Platelet Morphology Normal, Hypochromasia 1+, Anisocytosis 1+, Sodium Level 134L, Potassium Level 4.3, Chloride Level 98, Carbon Dioxide Level 29, Anion Gap 7, Blood Urea Nitrogen 11, Creatinine 0.5L, Estimat Glomerular Filtration Rate > 60, Glucose Level 116H, Calcium Level 9.6, Total Bilirubin 0.8 , Aspartate Amino Transf (AST/SGOT) 31, Alanine Aminotransferase (ALT/SGPT) 85H , Alkaline Phosphatase 285H, Total Protein 7.6, Albumin 2.0L, Globulin 5.6, Albumin/Globulin Ratio 0.4L Height (Feet): 5 Height (Inches): 3.00 Weight (Pounds): 72 Objective GENERAL: Alert, awake, and oriented. HEENT: PERRLA. NECK: Range of motion is full in all directions. No tenderness to paracervical muscles. No adenopathy. LUNGS: Decreased breath sounds bilaterally. ABDOMEN: Surgical wounds with bandages applied. Colostomy bag noted with tenderness to palpation. BACK: Range of motion is decreased in flexion and extension. EXTREMITIES: No cyanosis and no clubbing. NEUROLOGIC: Generalized weakness noted. ROSA MARIA MELGAR Oct 08, 2017 11:00
--- NOTE | 2017-10-08 11:52 | General Surgery Progress Note ---
General Surgery-Progress Note Subjective Symptoms: improved Objective Last 24 Hour Vital Signs Date Time Temp Pulse Resp B/P (MAP) Pulse Ox O2 Delivery O2 Flow Rate FiO2 10/08/17 08:17 98.8 99 20 105/68 94 Room Air 10/08/17 04:31 98.7 113 17 100/63 98 10/08/17 00:25 98.1 100 18 98/59 98 10/07/17 20:22 98.2 102 18 97/62 98 10/07/17 16:08 97.5 105 20 101/66 98 Room Air 10/07/17 12:00 98.0 99 17 106/71 99 Room Air I&O Intake and Output 10/07/17 10/08/17 19:00 07:00 Intake Total 240 ml 240 ml Output Total 10 ml Balance 240 ml 230 ml Intake Oral 240 ml 240 ml Stool Total 10 ml # Voids 4 2 Respiratory: clear Abdomen: soft, flat, non-tender, present bowel sounds Extremities: no tenderness Laboratory Tests Test 10/08/17 07:20 White Blood Count 11.5 K/UL (4.8-10.8) H Red Blood Count 3.38 M/UL (4.20-5.40) L Hemoglobin 9.9 G/DL (12.0-16.0) L Hematocrit 30.3 % (37.0-47.0) L Mean Corpuscular Volume 90 FL (80-99) Mean Corpuscular Hemoglobin 29.2 PG (27.0-31.0) Mean Corpuscular Hemoglobin Concent 32.5 G/DL (32.0-36.0) Red Cell Distribution Width 16.4 % (11.6-14.8) H Platelet Count 294 K/UL (150-450) Mean Platelet Volume 7.7 FL (6.5-10.1) Neutrophils (%) (Auto) % (45.0-75.0) Lymphocytes (%) (Auto) % (20.0-45.0) Monocytes (%) (Auto) % (1.0-10.0) Eosinophils (%) (Auto) % (0.0-3.0) Basophils (%) (Auto) % (0.0-2.0) Differential Total Cells Counted 100 Neutrophils % (Manual) 87 % (45-75) H Lymphocytes % (Manual) 7 % (20-45) L Monocytes % (Manual) 6 % (1-10) Eosinophils % (Manual) 0 % (0-3) Basophils % (Manual) 0 % (0-2) Band Neutrophils 0 % (0-8) Platelet Estimate Adequate Platelet Morphology Normal Hypochromasia 1+ Anisocytosis 1+ Sodium Level 134 MMOL/L (136-145) L Potassium Level 4.3 MMOL/L (3.5-5.1) Chloride Level 98 MMOL/L (98-107) Carbon Dioxide Level 29 MMOL/L (21-32) Anion Gap 7 mmol/L (5-15) Blood Urea Nitrogen 11 mg/dL (7-18) Creatinine 0.5 MG/DL (0.55-1.30) L Estimat Glomerular Filtration Rate > 60 mL/min (>60) Glucose Level 116 MG/DL (74-106) H Calcium Level 9.6 MG/DL (8.5-10.1) Total Bilirubin 0.8 MG/DL (0.2-1.0) Aspartate Amino Transf (AST/SGOT) 31 U/L (15-37) Alanine Aminotransferase (ALT/SGPT) 85 U/L (12-78) H Alkaline Phosphatase 285 U/L (46-116) H Total Protein 7.6 G/DL (6.4-8.2) Albumin 2.0 G/DL (3.4-5.0) L Globulin 5.6 g/dL Albumin/Globulin Ratio 0.4 (1.0-2.7) L Assessment Post-op Diagnosis perforation of cecum and recto-sigmoid Plan Additional Comments discharge planning DWAYNE OLIVER Oct 08, 2017 11:52
--- NOTE | 2017-10-08 13:55 | Pulmonology Progress Note ---
Assessment/Plan Assessment/Plan ASSESSMENT Acute abdominal pain 2 to perforation Perforated cecum and rectosigmoid s/p exp laparotomy with partial R hemicolectomy peritonitis with E coli, Enterococci, Jennyfer and Prevotella metastatic cervical Ca GI bleeding anemia due to acute blood loss ( required blood transfusion) anemia of chronic disease severe protein calorie malnutrition PLAN OF CARE MS floor still with leukocytosis, poor oral intake s/p emergent surgery surgery follows TPN f/up CT A/P noted calorie count Marinol Abx, ID follows, IS at the bedside and encourage to use Pain management wound care O2 HHN prn DVT prophylaxis monitor HH, anemia w/up c/w anemia of chronic disease, s/p 3 u PRBC, goal to keep Hgb above 7, transfuse if below or symptomatic , heme/onco follows nutritional support overall prognosis poor need placement consider comfort care case discussed and evaluated by supervising physician Subjective Allergies: Coded Allergies: No Known Allergies (Unverified , 09/10/17) Subjective Poor oral intake WBC trending down, afebrile pain controlled surgery follows clsoely Objective Last 24 Hour Vital Signs Date Time Temp Pulse Resp B/P (MAP) Pulse Ox O2 Delivery O2 Flow Rate FiO2 10/08/17 08:17 98.8 99 20 105/68 94 Room Air 10/08/17 04:31 98.7 113 17 100/63 98 10/08/17 00:25 98.1 100 18 98/59 98 10/07/17 20:22 98.2 102 18 97/62 98 10/07/17 16:08 97.5 105 20 101/66 98 Room Air Intake and Output 10/07/17 10/08/17 19:00 07:00 Intake Total 240 ml 240 ml Output Total 10 ml Balance 240 ml 230 ml Intake Oral 240 ml 240 ml Stool Total 10 ml # Voids 4 2 Objective Status: awake, A/A/O x 3 cachectic female in NAD, chronically ill looking HEENT: atraumatic, normocephalic, Neck: full ROM, trachea midline, R jugular CL intact Lungs: clear Heart: HR/BP stable Abdomen: soft, + BS, abdominal dressing C/D/I ; Extremities: no C/C/E, Laboratory Tests 10/08/17 07:20: White Blood Count 11.5H, Red Blood Count 3.38L, Hemoglobin 9.9L, Hematocrit 30.3L, Mean Corpuscular Volume 90, Mean Corpuscular Hemoglobin 29.2, Mean Corpuscular Hemoglobin Concent 32.5, Red Cell Distribution Width 16.4H, Platelet Count 294, Mean Platelet Volume 7.7, Neutrophils (%) (Auto) , Lymphocytes (%) (Auto) , Monocytes (%) (Auto) , Eosinophils (%) (Auto) , Basophils (%) (Auto) , Differential Total Cells Counted 100, Neutrophils % ( Manual) 87H, Lymphocytes % (Manual) 7L, Monocytes % (Manual) 6, Eosinophils % ( Manual) 0, Basophils % (Manual) 0, Band Neutrophils 0, Platelet Estimate Adequate, Platelet Morphology Normal, Hypochromasia 1+, Anisocytosis 1+, Sodium Level 134L, Potassium Level 4.3, Chloride Level 98, Carbon Dioxide Level 29, Anion Gap 7, Blood Urea Nitrogen 11, Creatinine 0.5L, Estimat Glomerular Filtration Rate > 60, Glucose Level 116H, Calcium Level 9.6, Total Bilirubin 0.8 , Aspartate Amino Transf (AST/SGOT) 31, Alanine Aminotransferase (ALT/SGPT) 85H , Alkaline Phosphatase 285H, Total Protein 7.6, Albumin 2.0L, Globulin 5.6, Albumin/Globulin Ratio 0.4L Current Medications Medications (Trade) Dose Ordered Sig/Francoise Route PRN Reason Start Time Stop Time Status Last Admin Dose Admin Acetaminophen (Tylenol) 650 mg Q4H PRN RECTAL FEVER 09/25/17 16:30 10/22/17 16:29 Chlorhexidine Gluconate (Kenia-Hex 2%) 1 applic DAILY@1999 TOPIC 09/25/17 20:00 10/24/17 19:59 10/07/17 20:31 Dextrose (Dextrose 50%) No Dose PRN IV hypoglycemia 09/28/17 00:00 10/28/17 00:00 Dronabinol (Marinol) 2.5 mg TID ORAL 10/04/17 13:00 11/03/17 12:59 10/08/17 13:43 Fluconazole (Diflucan) 200 mg DAILY ORAL 10/04/17 14:00 10/11/17 13:59 10/08/17 08:41 Gabapentin (Neurontin) 100 mg THREE TIMES A DAY ORAL 10/01/17 15:00 10/31/17 14:59 10/08/17 13:43 Heparin Sodium (Porcine) (Heparin 5000 units/ml) 5,000 units EVERY 12 HOURS SUBQ 09/25/17 21:00 10/23/17 08:59 10/08/17 08:46 Hydromorphone HCl (Dilaudid) 2 mg Q3H PRN IVP Severe Breakthru Pain (>7) 10/05/17 16:30 10/12/17 16:29 10/08/17 10:52 Hydromorphone HCl (Dilaudid) 4 mg Q4H PRN ORAL Severe Pain (Pain Scale 7-10) 10/03/17 09:30 10/10/17 09:29 10/08/17 08:42 Insulin Aspart (NovoLOG) BEFORE MEALS AND HS SUBQ 10/05/17 11:30 11/04/17 11:29 10/08/17 06:36 Ondansetron HCl (Zofran) 4 mg Q6H PRN IVP Nausea & Vomiting 09/25/17 16:30 10/22/17 16:29 Pantoprazole (Protonix) 40 mg DAILY IVP 09/26/17 09:00 10/23/17 08:59 10/08/17 08:41 Povidone Iodine (Betadine Annamaria) 1 applic DAILY@2100 TOPIC 10/02/17 21:00 11/01/17 20:59 10/06/17 22:20 Senna/Docusate Sodium (Jinny-Colace) 1 tab TWICE A DAY ORAL 09/29/17 18:00 10/29/17 17:59 10/08/17 08:41 Zolpidem Tartrate (Ambien) 5 mg HSPRN PRN ORAL Insomnia 10/03/17 09:30 10/10/17 09:29 10/06/17 22:20 [place] ([facility])Nikole NP Oct 08, 2017 13:55
[2017-10-08 16:45] VITALS: BP 96/59
--- NOTE | 2017-10-08 18:43 | Nephrology Progress Note ---
Assessment/Plan Assessment 1. Acute renal failure 2. Hyponatremia worse spoke to pharmacist increased NA to 90 3. Malnutrition. 4. hyperkalemia.resolved 5. Dehydration. 6. History of cervical cancer. Plan plan adjust TPN mix all ivpb with ns .9 monitoring renal function avoid NSAID replace electrolyte as need it Subjective Constitutional: Reports: no symptoms HEENT: Reports: no symptoms Genitourinary: Reports: no symptoms Neurologic/Psychiatric: Reports: no symptoms Subjective alert and awake no acute events Objective Objective Last 24 Hour Vital Signs Date Time Temp Pulse Resp B/P (MAP) Pulse Ox O2 Delivery O2 Flow Rate FiO2 10/08/17 16:45 98.9 107 20 96/59 94 Room Air 10/08/17 08:17 98.8 99 20 105/68 94 Room Air 10/08/17 04:31 98.7 113 17 100/63 98 10/08/17 00:25 98.1 100 18 98/59 98 10/07/17 20:22 98.2 102 18 97/62 98 Intake and Output 10/07/17 10/08/17 19:00 07:00 Intake Total 240 ml 240 ml Output Total 10 ml Balance 240 ml 230 ml Intake Oral 240 ml 240 ml Stool Total 10 ml # Voids 4 2 Laboratory Tests 10/08/17 07:20: White Blood Count 11.5H, Red Blood Count 3.38L, Hemoglobin 9.9L, Hematocrit 30.3L, Mean Corpuscular Volume 90, Mean Corpuscular Hemoglobin 29.2, Mean Corpuscular Hemoglobin Concent 32.5, Red Cell Distribution Width 16.4H, Platelet Count 294, Mean Platelet Volume 7.7, Neutrophils (%) (Auto) , Lymphocytes (%) (Auto) , Monocytes (%) (Auto) , Eosinophils (%) (Auto) , Basophils (%) (Auto) , Differential Total Cells Counted 100, Neutrophils % ( Manual) 87H, Lymphocytes % (Manual) 7L, Monocytes % (Manual) 6, Eosinophils % ( Manual) 0, Basophils % (Manual) 0, Band Neutrophils 0, Platelet Estimate Adequate, Platelet Morphology Normal, Hypochromasia 1+, Anisocytosis 1+, Sodium Level 134L, Potassium Level 4.3, Chloride Level 98, Carbon Dioxide Level 29, Anion Gap 7, Blood Urea Nitrogen 11, Creatinine 0.5L, Estimat Glomerular Filtration Rate > 60, Glucose Level 116H, Calcium Level 9.6, Total Bilirubin 0.8 , Aspartate Amino Transf (AST/SGOT) 31, Alanine Aminotransferase (ALT/SGPT) 85H , Alkaline Phosphatase 285H, Total Protein 7.6, Albumin 2.0L, Globulin 5.6, Albumin/Globulin Ratio 0.4L Height (Feet): 5 Height (Inches): 3.00 Weight (Pounds): 72 Objective HEAD AND NECK: No JVP. No LAD. No thyromegaly. Extraocular movement intact. Pupils are reactive to light and accommodation. LUNGS: Decreased breathing sounds. CARDIAC: Regular rate and rhythm. S1 and S2. No murmur. No rub. ABDOMEN: Distended. Bowel sounds are positive. Diffuse tenderness. No guarding. No rebound. EXTREMITIES: A 1+ to 2+ edema. No clubbing. No cyanosis. NEUROLOGIC: Cranial nerves II through XII within normal limits. Upper and lower extremities are grossly intact. LORRAINE GROVER Oct 08, 2017 18:43
[2017-10-08 20:00] VITALS: BP 96/57
[2017-10-08] MEDS: Dyna-Hex 2% Top Sol 2oz TOPIC SCH (20:00)
[2017-10-08] MEDS: Betadine 4oz Bottle TOPIC SCH (20:47)
--- NOTE | 2017-10-08 23:01 | General Progress Note ---
Assessment/Plan Assessment/Plan # Leukocytosis is likely reactive from Acute abdominal pain 2 to perforation with perforated cecum and rectosigmoid s/p exp laparotomy with partial R hemicolectomy --> resolved, but pain still persists --> On Dilaudid for abd pain. --> continue to closely monitor. # Anemia of chronic disease --> w/u has been reviewed, mild at this time --> Blood transfusion not required unless symptomatic or hgb <7 --> Has not required blood transfusion as hgb >8 # Cervical Ca s/p surgery and radiation, has not received any chemotherapy recently --> Monitor. # Thrombocytosis is likely related to chronic reactive process --> resolved # Anemia of GI bleeding --> GI followup. # Severe protein calorie malnutrition Subjective Date patient seen: Oct 08, 2017 HEENT: Denies: no symptoms, eye pain, blurred vision, tearing, double vision, ear pain, ear discharge, nose pain, nose congestion, throat pain, throat swelling, mouth pain, mouth swelling, other Cardiovascular: Denies: no symptoms, chest pain, edema, irregular heart rate, lightheadedness, palpitations, syncope, other Respiratory: Denies: no symptoms, cough, orthopnea, shortness of breath, SOB with excertion, SOB at rest, sputum, stridor, wheezing, other Gastrointestinal/Abdominal: Denies: no symptoms, abdomen distended, abdominal pain, black stools, tarry stools, blood in stool, constipated, diarrhea, difficulty swallowing, nausea, poor appetite, poor fluid intake, rectal bleeding , vomiting, other Genitourinary: Denies: no symptoms, burning, discharge, frequency, flank pain, hematuria, incontinence, pain, urgency, other Hematologic/Lymphatic: Reports: anemia Allergies: Coded Allergies: No Known Allergies (Unverified , 09/10/17) Subjective On pain control for abd pain. Objective Last 24 Hour Vital Signs Date Time Temp Pulse Resp B/P (MAP) Pulse Ox O2 Delivery O2 Flow Rate FiO2 10/08/17 20:00 99.0 100 18 96/57 99 10/08/17 16:45 98.9 107 20 96/59 94 Room Air 10/08/17 08:17 98.8 99 20 105/68 94 Room Air 10/08/17 04:31 98.7 113 17 100/63 98 10/08/17 00:25 98.1 100 18 98/59 98 Intake and Output 10/07/17 10/08/17 19:00 07:00 Intake Total 240 ml 240 ml Output Total 10 ml Balance 240 ml 230 ml Intake Oral 240 ml 240 ml Stool Total 10 ml # Voids 4 2 Laboratory Tests 10/08/17 07:20: White Blood Count 11.5H, Red Blood Count 3.38L, Hemoglobin 9.9L, Hematocrit 30.3L, Mean Corpuscular Volume 90, Mean Corpuscular Hemoglobin 29.2, Mean Corpuscular Hemoglobin Concent 32.5, Red Cell Distribution Width 16.4H, Platelet Count 294, Mean Platelet Volume 7.7, Neutrophils (%) (Auto) , Lymphocytes (%) (Auto) , Monocytes (%) (Auto) , Eosinophils (%) (Auto) , Basophils (%) (Auto) , Differential Total Cells Counted 100, Neutrophils % ( Manual) 87H, Lymphocytes % (Manual) 7L, Monocytes % (Manual) 6, Eosinophils % ( Manual) 0, Basophils % (Manual) 0, Band Neutrophils 0, Platelet Estimate Adequate, Platelet Morphology Normal, Hypochromasia 1+, Anisocytosis 1+, Sodium Level 134L, Potassium Level 4.3, Chloride Level 98, Carbon Dioxide Level 29, Anion Gap 7, Blood Urea Nitrogen 11, Creatinine 0.5L, Estimat Glomerular Filtration Rate > 60, Glucose Level 116H, Calcium Level 9.6, Total Bilirubin 0.8 , Aspartate Amino Transf (AST/SGOT) 31, Alanine Aminotransferase (ALT/SGPT) 85H , Alkaline Phosphatase 285H, Total Protein 7.6, Albumin 2.0L, Globulin 5.6, Albumin/Globulin Ratio 0.4L Height (Feet): 5 Height (Inches): 3.00 Weight (Pounds): 72 Chris Spencer Oct 08, 2017 23:01
[2017-10-09] VITALS: BP 109/48
[2017-10-09 04:00] VITALS: BP 95/71
[2017-10-09] MEDS: HYDROmorphone 4mg tab ORAL PRN (04:19)
[2017-10-09 06:41] LABS: HEMOGLOBIN 10.4 G/DL (12.0-16.0); MEAN CORPUSCULAR VOLUME 88 FL (80-99); PLATELET COUNT 321 K/UL (150-450); RED BLOOD COUNT 3.51 M/UL (4.20-5.40)
[2017-10-09 06:48] LABS: ANION GAP 8 mmol/L (5-15); BLOOD UREA NITROGEN 12 mg/dL (7-18); CALCIUM 10.4 MG/DL (8.5-10.1); CARBON DIOXIDE 28 MMOL/L (21-32); CHLORIDE 94 MMOL/L (98-107); CREATININE 0.6 MG/DL (0.55-1.30); POTASSIUM 4.1 MMOL/L (3.5-5.1); SODIUM 130 MMOL/L (136-145)
[2017-10-09 08:00] VITALS: BP 102/60
--- NOTE | 2017-10-09 08:44 | Nephrology Progress Note ---
Assessment/Plan Assessment 1. Acute renal failure 2. Hyponatremia worse spoke to pharmacist increased NA to 90 3. Malnutrition. 4. hyperkalemia.resolved 5. Dehydration. 6. History of cervical cancer. Plan plan adjust TPN mix all ivpb with ns .9 monitoring renal function avoid NSAID replace electrolyte as need it Subjective Subjective alert and awake no acute events Objective Objective Last 24 Hour Vital Signs Date Time Temp Pulse Resp B/P (MAP) Pulse Ox O2 Delivery O2 Flow Rate FiO2 10/09/17 08:00 97.2 101 16 102/60 96 10/09/17 04:00 98.2 101 18 95/71 97 10/09/17 00:00 98.9 116 18 109/48 96 10/08/17 20:00 99.0 100 18 96/57 99 10/08/17 16:45 98.9 107 20 96/59 94 Room Air Intake and Output 10/08/17 10/09/17 19:00 07:00 Intake Total 300 ml 240 ml Output Total 700 ml Balance 300 ml -460 ml Intake Oral 300 ml 240 ml Output Urine Total 700 ml # Bowel Movements 10 Laboratory Tests 10/09/17 06:20: White Blood Count 12.0H, Red Blood Count 3.51L, Hemoglobin 10.4L, Hematocrit 31.0L, Mean Corpuscular Volume 88, Mean Corpuscular Hemoglobin 29.8, Mean Corpuscular Hemoglobin Concent 33.7, Red Cell Distribution Width 16.0H, Platelet Count 321, Mean Platelet Volume 7.2, Neutrophils (%) (Auto) , Lymphocytes (%) (Auto) , Monocytes (%) (Auto) , Eosinophils (%) (Auto) , Basophils (%) (Auto) , Neutrophils % (Manual) [Pending], Lymphocytes % (Manual) [Pending], Platelet Estimate [Pending], Platelet Morphology [Pending], Sodium Level 130L, Potassium Level 4.1, Chloride Level 94L, Carbon Dioxide Level 28, Anion Gap 8, Blood Urea Nitrogen 12, Creatinine 0.6, Estimat Glomerular Filtration Rate > 60, Glucose Level 91, Calcium Level 10.4H Height (Feet): 5 Height (Inches): 3.00 Weight (Pounds): 72 Objective HEAD AND NECK: No JVP. No LAD. No thyromegaly. Extraocular movement intact. Pupils are reactive to light and accommodation. LUNGS: Decreased breathing sounds. CARDIAC: Regular rate and rhythm. S1 and S2. No murmur. No rub. ABDOMEN: Distended. Bowel sounds are positive. Diffuse tenderness. No guarding. No rebound. EXTREMITIES: A 1+ to 2+ edema. No clubbing. No cyanosis. NEUROLOGIC: Cranial nerves II through XII within normal limits. Upper and lower extremities are grossly intact. LORRAINE GROVER Oct 09, 2017 08:44
[2017-10-09] MEDS: Heparin 5000 units/ml inj SUBQ SCH ×2 (09:00→22:17)
[2017-10-09] MEDS: Docusate Sod/Senna tab ORAL SCH ×2 (09:20→17:47)
[2017-10-09] MEDS: Fluconazole 100mg tab ORAL SCH (09:20)
[2017-10-09] MEDS: Dronabinol 2.5mg Cap ORAL SCH ×3 (09:20→17:47)
[2017-10-09] MEDS: Pantoprazole Inj IVP SCH (09:26)
--- NOTE | 2017-10-09 10:56 | GI Progress Note ---
Assessment/Plan Problems: (1) Perforation of cecum ICD Codes: K63.1 - Perforation of intestine (nontraumatic) SNOMED: 191344477 (2) Perforated sigmoid colon ICD Codes: K63.1 - Perforation of intestine (nontraumatic) SNOMED: 452425983 (3) Intra-abdominal free air of unknown etiology ICD Codes: K66.8 - Other specified disorders of peritoneum SNOMED: 83476591 (4) Abdominal pain ICD Codes: R10.9 - Unspecified abdominal pain SNOMED: 37768716 Qualifiers: Qualified Codes: R10.13 - Epigastric pain (5) GI bleed ICD Codes: K92.2 - Gastrointestinal hemorrhage, unspecified SNOMED: 52846155 Qualifiers: Qualified Codes: K92.2 - Gastrointestinal hemorrhage, unspecified (6) Anemia ICD Codes: D64.9 - Anemia, unspecified SNOMED: 375621634 Qualifiers: Qualified Codes: D64.9 - Anemia, unspecified Status: unchanged Status Narrative Discussed with Dr. Jordan. Assessment/Plan consider PEG as primary source of nutrition if patient does not have enough caloric intake. post op care fu surgical recs PO diet per surgery TPN >> will taper once patient begins tolerate PO - cont Marinol fu calorie count >> poor PO intake electrolyte correction PT evaluation pain control fu labs Subjective Subjective generalized weakness feels better has no appetite poor PO intake Objective Last 24 Hour Vital Signs Date Time Temp Pulse Resp B/P (MAP) Pulse Ox O2 Delivery O2 Flow Rate FiO2 10/09/17 08:00 97.2 101 16 102/60 96 10/09/17 04:00 98.2 101 18 95/71 97 10/09/17 00:00 98.9 116 18 109/48 96 10/08/17 20:00 99.0 100 18 96/57 99 10/08/17 16:45 98.9 107 20 96/59 94 Room Air Intake and Output 10/08/17 10/09/17 19:00 07:00 Intake Total 300 ml 240 ml Output Total 700 ml Balance 300 ml -460 ml Intake Oral 300 ml 240 ml Output Urine Total 700 ml # Bowel Movements 10 Laboratory Tests Test 10/09/17 06:20 White Blood Count 12.0 K/UL (4.8-10.8) H Red Blood Count 3.51 M/UL (4.20-5.40) L Hemoglobin 10.4 G/DL (12.0-16.0) L Hematocrit 31.0 % (37.0-47.0) L Mean Corpuscular Volume 88 FL (80-99) Mean Corpuscular Hemoglobin 29.8 PG (27.0-31.0) Mean Corpuscular Hemoglobin Concent 33.7 G/DL (32.0-36.0) Red Cell Distribution Width 16.0 % (11.6-14.8) H Platelet Count 321 K/UL (150-450) Mean Platelet Volume 7.2 FL (6.5-10.1) Neutrophils (%) (Auto) % (45.0-75.0) Lymphocytes (%) (Auto) % (20.0-45.0) Monocytes (%) (Auto) % (1.0-10.0) Eosinophils (%) (Auto) % (0.0-3.0) Basophils (%) (Auto) % (0.0-2.0) Differential Total Cells Counted 100 Neutrophils % (Manual) 88 % (45-75) H Lymphocytes % (Manual) 6 % (20-45) L Monocytes % (Manual) 1 % (1-10) Eosinophils % (Manual) 3 % (0-3) Basophils % (Manual) 2 % (0-2) Band Neutrophils 0 % (0-8) Platelet Estimate Adequate Platelet Morphology Normal Sodium Level 130 MMOL/L (136-145) L Potassium Level 4.1 MMOL/L (3.5-5.1) Chloride Level 94 MMOL/L (98-107) L Carbon Dioxide Level 28 MMOL/L (21-32) Anion Gap 8 mmol/L (5-15) Blood Urea Nitrogen 12 mg/dL (7-18) Creatinine 0.6 MG/DL (0.55-1.30) Estimat Glomerular Filtration Rate > 60 mL/min (>60) Glucose Level 91 MG/DL (74-106) Calcium Level 10.4 MG/DL (8.5-10.1) H Height (Feet): 5 Height (Inches): 3.00 Weight (Pounds): 72 General Appearance: WD/WN, no apparent distress, alert Cardiovascular: normal rate Respiratory/Chest: normal breath sounds, no respiratory distress Abdominal Exam: normal bowel sounds, non tender, soft Extremities: normal range of motion, non-tender Cece Gerard N.P. Oct 09, 2017 10:56
[2017-10-09 12:00] VITALS: BP 98/59
[2017-10-09] MEDS ORDERED: Sodium Chloride 500ML 550 ML IV ONE (12:00)
--- NOTE | 2017-10-09 13:00 | General Progress Note ---
Assessment/Plan Problem List: (1) Anemia ICD Codes: D64.9 - Anemia, unspecified SNOMED: 002940487 Qualifiers: Qualified Codes: D64.9 - Anemia, unspecified (2) GI bleed ICD Codes: K92.2 - Gastrointestinal hemorrhage, unspecified SNOMED: 94640016 Qualifiers: Qualified Codes: K92.2 - Gastrointestinal hemorrhage, unspecified (3) Abdominal pain ICD Codes: R10.9 - Unspecified abdominal pain SNOMED: 70541056 Qualifiers: Qualified Codes: R10.13 - Epigastric pain Status: unchanged Assessment/Plan ot pt diet cbc bmp am gi f/u id eval dc plan Subjective Constitutional: Reports: weakness Allergies: Coded Allergies: No Known Allergies (Unverified , 09/10/17) All Systems: reviewed and negative except above Subjective sl nauseus no appetite Objective Last 24 Hour Vital Signs Date Time Temp Pulse Resp B/P (MAP) Pulse Ox O2 Delivery O2 Flow Rate FiO2 10/09/17 12:00 97.9 98 16 98/59 98 10/09/17 08:00 97.2 101 16 102/60 96 10/09/17 04:00 98.2 101 18 95/71 97 10/09/17 00:00 98.9 116 18 109/48 96 10/08/17 20:00 99.0 100 18 96/57 99 10/08/17 16:45 98.9 107 20 96/59 94 Room Air Intake and Output 10/08/17 10/09/17 19:00 07:00 Intake Total 300 ml 240 ml Output Total 700 ml Balance 300 ml -460 ml Intake Oral 300 ml 240 ml Output Urine Total 700 ml # Bowel Movements 10 Laboratory Tests 10/09/17 06:20: White Blood Count 12.0H, Red Blood Count 3.51L, Hemoglobin 10.4L, Hematocrit 31.0L, Mean Corpuscular Volume 88, Mean Corpuscular Hemoglobin 29.8, Mean Corpuscular Hemoglobin Concent 33.7, Red Cell Distribution Width 16.0H, Platelet Count 321, Mean Platelet Volume 7.2, Neutrophils (%) (Auto) , Lymphocytes (%) (Auto) , Monocytes (%) (Auto) , Eosinophils (%) (Auto) , Basophils (%) (Auto) , Differential Total Cells Counted 100, Neutrophils % ( Manual) 88H, Lymphocytes % (Manual) 6L, Monocytes % (Manual) 1, Eosinophils % ( Manual) 3, Basophils % (Manual) 2, Band Neutrophils 0, Platelet Estimate Adequate, Platelet Morphology Normal, Sodium Level 130L, Potassium Level 4.1, Chloride Level 94L, Carbon Dioxide Level 28, Anion Gap 8, Blood Urea Nitrogen 12 , Creatinine 0.6, Estimat Glomerular Filtration Rate > 60, Glucose Level 91, Calcium Level 10.4H Height (Feet): 5 Height (Inches): 3.00 Weight (Pounds): 72 General Appearance: lethargic EENT: normal ENT inspection Neck: normal alignment Cardiovascular: normal peripheral pulses, normal rate, regular rhythm Respiratory/Chest: chest wall non-tender, lungs clear, normal breath sounds Abdomen: normal bowel sounds, non tender, soft Extremities: normal inspection Edema: no edema noted Arm (L), no edema noted Arm (R), no edema noted Leg (L), no edema noted Leg (R), no edema noted Pedal (L), no edema noted Pedal (R), no edema noted Generalized Neurologic: responsive, motor weakness Skin: normal pigmentation, warm/dry SONIDO FELICIANO Oct 09, 2017 13:00
--- NOTE | 2017-10-09 15:37 | Pulmonology Progress Note ---
Assessment/Plan Problems: (1) Intra-abdominal free air of unknown etiology (2) Perforated sigmoid colon (3) Sepsis Assessment/Plan adjust pain meds/ no new complains all reviewed pain management check electroltyes. finished IV abx, add methadone palliative care were discussed with patient, she agreed to hospice upon discharge. Subjective ROS Limited/Unobtainable: No Constitutional: Reports: no symptoms HEENT: Repors: no symptoms Allergies: Coded Allergies: No Known Allergies (Unverified , 09/10/17) Objective Last 24 Hour Vital Signs Date Time Temp Pulse Resp B/P (MAP) Pulse Ox O2 Delivery O2 Flow Rate FiO2 10/09/17 12:00 97.9 98 16 98/59 98 10/09/17 08:00 97.2 101 16 102/60 96 10/09/17 04:00 98.2 101 18 95/71 97 10/09/17 00:00 98.9 116 18 109/48 96 10/08/17 20:00 99.0 100 18 96/57 99 10/08/17 16:45 98.9 107 20 96/59 94 Room Air Intake and Output 10/08/17 10/09/17 19:00 07:00 Intake Total 300 ml 240 ml Output Total 700 ml Balance 300 ml -460 ml Intake Oral 300 ml 240 ml Output Urine Total 700 ml # Bowel Movements 10 Objective General Appearance: WD/WN, no apparent distress, ON tpn, NGtube in place HEENT: normocephalic, atraumatic Neck: non-tender, normal alignment Respiratory/Chest: chest wall non-tender, lungs clear Breasts: no masses Cardiovascular/Chest: normal rate Abdomen: normal bowel sounds, no organomegaly Genitourinary/Rectal: normal genital exam Extremities: normal range of motion Laboratory Tests 10/09/17 06:20: White Blood Count 12.0H, Red Blood Count 3.51L, Hemoglobin 10.4L, Hematocrit 31.0L, Mean Corpuscular Volume 88, Mean Corpuscular Hemoglobin 29.8, Mean Corpuscular Hemoglobin Concent 33.7, Red Cell Distribution Width 16.0H, Platelet Count 321, Mean Platelet Volume 7.2, Neutrophils (%) (Auto) , Lymphocytes (%) (Auto) , Monocytes (%) (Auto) , Eosinophils (%) (Auto) , Basophils (%) (Auto) , Differential Total Cells Counted 100, Neutrophils % ( Manual) 88H, Lymphocytes % (Manual) 6L, Monocytes % (Manual) 1, Eosinophils % ( Manual) 3, Basophils % (Manual) 2, Band Neutrophils 0, Platelet Estimate Adequate, Platelet Morphology Normal, Sodium Level 130L, Potassium Level 4.1, Chloride Level 94L, Carbon Dioxide Level 28, Anion Gap 8, Blood Urea Nitrogen 12 , Creatinine 0.6, Estimat Glomerular Filtration Rate > 60, Glucose Level 91, Calcium Level 10.4H Current Medications Medications (Trade) Dose Ordered Sig/Francoise Route PRN Reason Start Time Stop Time Status Last Admin Dose Admin Acetaminophen (Tylenol) 650 mg Q4H PRN RECTAL FEVER 09/25/17 16:30 10/22/17 16:29 Chlorhexidine Gluconate (Kenia-Hex 2%) 1 applic DAILY@1999 TOPIC 09/25/17 20:00 10/24/17 19:59 10/07/17 20:31 Dextrose (Dextrose 50%) No Dose PRN IV hypoglycemia 09/28/17 00:00 10/28/17 00:00 Dronabinol (Marinol) 2.5 mg TID ORAL 10/04/17 13:00 11/03/17 12:59 10/09/17 12:55 Fluconazole (Diflucan) 200 mg DAILY ORAL 10/04/17 14:00 10/11/17 13:59 10/09/17 09:20 Gabapentin (Neurontin) 100 mg THREE TIMES A DAY ORAL 10/01/17 15:00 10/31/17 14:59 10/09/17 12:55 Heparin Sodium (Porcine) (Heparin 5000 units/ml) 5,000 units EVERY 12 HOURS SUBQ 09/25/17 21:00 10/23/17 08:59 10/08/17 20:51 Hydromorphone HCl (Dilaudid) 2 mg Q3H PRN IVP Severe Breakthru Pain (>7) 10/05/17 16:30 10/12/17 16:29 10/09/17 12:56 Hydromorphone HCl (Dilaudid) 4 mg Q4H PRN ORAL Severe Pain (Pain Scale 7-10) 10/08/17 14:30 10/15/17 14:29 10/09/17 04:19 Methadone HCl (Methadone HCl) 5 mg Q6H PRN ORAL For Pain 10/09/17 15:30 10/16/17 15:29 UNV Ondansetron HCl (Zofran) 4 mg Q6H PRN IVP Nausea & Vomiting 09/25/17 16:30 10/22/17 16:29 Pantoprazole (Protonix) 40 mg DAILY IVP 09/26/17 09:00 10/23/17 08:59 10/09/17 09:26 Povidone Iodine (Betadine Annamaria) 1 applic DAILY@2100 TOPIC 10/02/17 21:00 11/01/17 20:59 10/06/17 22:20 Senna/Docusate Sodium (Jinny-Colace) 1 tab TWICE A DAY ORAL 09/29/17 18:00 10/29/17 17:59 10/09/17 09:20 Sodium Chloride 550 ml @ 100 mls/hr Q5H30M ONCE IV 10/09/17 12:00 10/09/17 17:29 10/09/17 12:18 Zolpidem Tartrate (Ambien) 5 mg HSPRN PRN ORAL Insomnia 10/08/17 14:00 10/15/17 13:59 JL CHAVEZ Oct 09, 2017 15:37
[2017-10-09 16:00] VITALS: BP 106/68
[2017-10-09] MEDS ORDERED: HYDROmorphone 2mg tab ORAL PRN (16:00)
[2017-10-09] MEDS: Hydromorphone 0.5mg/0.5ml inj IVP PRN ×3 (16:09→23:15)
--- NOTE | 2017-10-09 17:18 | Cardiology Progress Note ---
Assessment/Plan Assessment/Plan 1. Sinus tachycardia, recurrent, resume propranolol. 2. Hypotension, asymptomatic, continue hydration. 3. History of cervical cancer, status post chemotherapy. 4. s/p rectosigmoid resection, complicated with peritonitis. Subjective Subjective Clinically the same. Denies chest pain or SOB. Objective Last 24 Hour Vital Signs Date Time Temp Pulse Resp B/P (MAP) Pulse Ox O2 Delivery O2 Flow Rate FiO2 10/09/17 16:00 98.1 99 17 106/68 97 10/09/17 12:00 97.9 98 16 98/59 98 10/09/17 08:00 97.2 101 16 102/60 96 10/09/17 04:00 98.2 101 18 95/71 97 10/09/17 00:00 98.9 116 18 109/48 96 10/08/17 20:00 99.0 100 18 96/57 99 Intake and Output 10/08/17 10/09/17 19:00 07:00 Intake Total 300 ml 240 ml Output Total 700 ml Balance 300 ml -460 ml Intake Oral 300 ml 240 ml Output Urine Total 700 ml # Bowel Movements 10 Laboratory Tests Test 10/09/17 06:20 White Blood Count 12.0 K/UL (4.8-10.8) H Red Blood Count 3.51 M/UL (4.20-5.40) L Hemoglobin 10.4 G/DL (12.0-16.0) L Hematocrit 31.0 % (37.0-47.0) L Mean Corpuscular Volume 88 FL (80-99) Mean Corpuscular Hemoglobin 29.8 PG (27.0-31.0) Mean Corpuscular Hemoglobin Concent 33.7 G/DL (32.0-36.0) Red Cell Distribution Width 16.0 % (11.6-14.8) H Platelet Count 321 K/UL (150-450) Mean Platelet Volume 7.2 FL (6.5-10.1) Neutrophils (%) (Auto) % (45.0-75.0) Lymphocytes (%) (Auto) % (20.0-45.0) Monocytes (%) (Auto) % (1.0-10.0) Eosinophils (%) (Auto) % (0.0-3.0) Basophils (%) (Auto) % (0.0-2.0) Differential Total Cells Counted 100 Neutrophils % (Manual) 88 % (45-75) H Lymphocytes % (Manual) 6 % (20-45) L Monocytes % (Manual) 1 % (1-10) Eosinophils % (Manual) 3 % (0-3) Basophils % (Manual) 2 % (0-2) Band Neutrophils 0 % (0-8) Platelet Estimate Adequate Platelet Morphology Normal Sodium Level 130 MMOL/L (136-145) L Potassium Level 4.1 MMOL/L (3.5-5.1) Chloride Level 94 MMOL/L (98-107) L Carbon Dioxide Level 28 MMOL/L (21-32) Anion Gap 8 mmol/L (5-15) Blood Urea Nitrogen 12 mg/dL (7-18) Creatinine 0.6 MG/DL (0.55-1.30) Estimat Glomerular Filtration Rate > 60 mL/min (>60) Glucose Level 91 MG/DL (74-106) Calcium Level 10.4 MG/DL (8.5-10.1) H Objective HEENT: Atraumatic and normocephalic. Anicteric. Pupils are equal, round,and reactive to light and accommodation. There is conjunctival pallor. NECK: JVP less than 5 cm. No carotid bruit. Carotid upstrokes 2+ bilaterally. CARDIOVASCULAR: Normal S1 and S2. Regular rate and rhythm. No murmurs, gallops , or rubs. LUNGS: Clear to auscultation bilaterally. ABDOMEN: Soft, nontender, and nondistended. No hepatosplenomegaly. Positive bowel sounds. EXTREMITIES: No evidence of edema, clubbing, or cyanosis. JUDITH WATSON Oct 09, 2017 17:18
[2017-10-09] MEDS: Propranolol 10mg tab ORAL SCH (17:48)
[2017-10-09 20:00] VITALS: BP 101/63
[2017-10-09] MEDS: Zolpidem 5mg tab ORAL PRN (22:12)
[2017-10-09] MEDS: Dyna-Hex 2% Top Sol 2oz TOPIC SCH (22:18)
[2017-10-09] MEDS: Betadine 4oz Bottle TOPIC SCH (22:18)
--- NOTE | 2017-10-09 22:34 | General Progress Note ---
Assessment/Plan Assessment/Plan # Leukocytosis is likely reactive from Acute abdominal pain 2 to perforation with perforated cecum and rectosigmoid s/p exp laparotomy with partial R hemicolectomy --> resolved, but pain still persists --> On Dilaudid for abd pain. Improved. --> continue to closely monitor. # Anemia of chronic disease --> w/u has been reviewed, mild at this time --> Blood transfusion not required unless symptomatic or hgb <7 --> Has not required blood transfusion as hgb >8 # Cervical Ca s/p surgery and radiation, has not received any chemotherapy recently --> Monitor. # Thrombocytosis is likely related to chronic reactive process --> resolved # Anemia of GI bleeding --> GI followup. # Severe protein calorie malnutrition Subjective Date patient seen: Oct 09, 2017 Constitutional: Denies: no symptoms, chills, diaphoresis, fever, malaise, weakness, other HEENT: Denies: no symptoms, eye pain, blurred vision, tearing, double vision, ear pain, ear discharge, nose pain, nose congestion, throat pain, throat swelling, mouth pain, mouth swelling, other Cardiovascular: Denies: no symptoms, chest pain, edema, irregular heart rate, lightheadedness, palpitations, syncope, other Respiratory: Denies: no symptoms, cough, orthopnea, shortness of breath, SOB with excertion, SOB at rest, sputum, stridor, wheezing, other Gastrointestinal/Abdominal: Denies: no symptoms, abdomen distended, abdominal pain, black stools, tarry stools, blood in stool, constipated, diarrhea, difficulty swallowing, nausea, poor appetite, poor fluid intake, rectal bleeding , vomiting, other Genitourinary: Denies: no symptoms, burning, discharge, frequency, flank pain, hematuria, incontinence, pain, urgency, other Allergies: Coded Allergies: No Known Allergies (Unverified , 09/10/17) Subjective On pain control for abd pain. No major events. Leukocytosis resolved. Objective Last 24 Hour Vital Signs Date Time Temp Pulse Resp B/P (MAP) Pulse Ox O2 Delivery O2 Flow Rate FiO2 10/09/17 17:48 99 91/59 10/09/17 16:39 98.1 10/09/17 16:00 98.1 99 17 106/68 97 2/5/18 12:00 97.9 98 16 98/59 98 10/09/17 08:00 97.2 101 16 102/60 96 10/09/17 04:00 98.2 101 18 95/71 97 10/09/17 00:00 98.9 116 18 109/48 96 Intake and Output 10/08/17 10/09/17 19:00 07:00 Intake Total 300 ml 240 ml Output Total 700 ml Balance 300 ml -460 ml Intake Oral 300 ml 240 ml Output Urine Total 700 ml # Bowel Movements 10 Laboratory Tests 10/09/17 06:20: White Blood Count 12.0H, Red Blood Count 3.51L, Hemoglobin 10.4L, Hematocrit 31.0L, Mean Corpuscular Volume 88, Mean Corpuscular Hemoglobin 29.8, Mean Corpuscular Hemoglobin Concent 33.7, Red Cell Distribution Width 16.0H, Platelet Count 321, Mean Platelet Volume 7.2, Neutrophils (%) (Auto) , Lymphocytes (%) (Auto) , Monocytes (%) (Auto) , Eosinophils (%) (Auto) , Basophils (%) (Auto) , Differential Total Cells Counted 100, Neutrophils % ( Manual) 88H, Lymphocytes % (Manual) 6L, Monocytes % (Manual) 1, Eosinophils % ( Manual) 3, Basophils % (Manual) 2, Band Neutrophils 0, Platelet Estimate Adequate, Platelet Morphology Normal, Sodium Level 130L, Potassium Level 4.1, Chloride Level 94L, Carbon Dioxide Level 28, Anion Gap 8, Blood Urea Nitrogen 12 , Creatinine 0.6, Estimat Glomerular Filtration Rate > 60, Glucose Level 91, Calcium Level 10.4H Height (Feet): 5 Height (Inches): 3.00 Weight (Pounds): 72 General Appearance: confused Respiratory/Chest: decreased breath sounds Skin: warm/dry Chris Spencer Oct 09, 2017 22:34
[2017-10-10] VITALS: BP 106/66
[2017-10-10 03:55] VITALS: BP 102/63
[2017-10-10] MEDS: Hydromorphone 0.5mg/0.5ml inj IVP PRN ×6 (04:47→21:30)
[2017-10-10 08:00] VITALS: BP 93/57
[2017-10-10] MEDS: Heparin 5000 units/ml inj SUBQ SCH ×2 (08:18→21:00)
[2017-10-10] MEDS: Fluconazole 100mg tab ORAL SCH (08:19)
[2017-10-10] MEDS: Docusate Sod/Senna tab ORAL SCH ×2 (08:19→18:15)
[2017-10-10] MEDS: Dronabinol 2.5mg Cap ORAL SCH (09:00)
[2017-10-10] MEDS: Propranolol 10mg tab ORAL SCH ×2 (09:00→18:15)
--- NOTE | 2017-10-10 10:57 | GI Progress Note ---
Assessment/Plan Problems: (1) Perforation of cecum ICD Codes: K63.1 - Perforation of intestine (nontraumatic) SNOMED: 700108628 (2) Perforated sigmoid colon ICD Codes: K63.1 - Perforation of intestine (nontraumatic) SNOMED: 228171841 (3) Intra-abdominal free air of unknown etiology ICD Codes: K66.8 - Other specified disorders of peritoneum SNOMED: 81235774 (4) Abdominal pain ICD Codes: R10.9 - Unspecified abdominal pain SNOMED: 38506887 Qualifiers: Qualified Codes: R10.13 - Epigastric pain (5) GI bleed ICD Codes: K92.2 - Gastrointestinal hemorrhage, unspecified SNOMED: 19666746 Qualifiers: Qualified Codes: K92.2 - Gastrointestinal hemorrhage, unspecified (6) Anemia ICD Codes: D64.9 - Anemia, unspecified SNOMED: 417699564 Qualifiers: Qualified Codes: D64.9 - Anemia, unspecified Status: unchanged Status Narrative Discussed with Dr. Jordan. Assessment/Plan calorie count >> on regular diet, poor PO intake pt agreed to palliative care consider PEG as primary source of nutrition if patient does not have enough caloric intake. post op care TPN >> will taper once patient begins tolerate PO - cont Marinol electrolyte correction PT evaluation pain control fu labs Subjective Subjective generalized weakness feels better has no appetite poor PO intake Objective Last 24 Hour Vital Signs Date Time Temp Pulse Resp B/P (MAP) Pulse Ox O2 Delivery O2 Flow Rate FiO2 10/10/17 05:17 98.0 10/10/17 03:55 98.0 96 19 102/63 97 Room Air 10/10/17 00:00 98.0 96 18 106/66 97 Room Air 10/09/17 20:00 98.0 96 18 101/63 97 Room Air 10/09/17 17:48 99 91/59 10/09/17 16:00 98.1 99 17 106/68 97 10/09/17 12:00 97.9 98 16 98/59 98 Intake and Output 10/09/17 10/10/17 19:00 07:00 Intake Total 550 ml 480 ml Output Total 820 ml 740 ml Balance -270 ml -260 ml Intake Oral 550 ml 480 ml Output Urine Total 820 ml 720 ml Stool Total 20 ml # Bowel Movements 15 2 Height (Feet): 5 Height (Inches): 3.00 Weight (Pounds): 72 General Appearance: WD/WN, no apparent distress, alert, thin Cardiovascular: normal rate Respiratory/Chest: normal breath sounds, no respiratory distress Abdominal Exam: normal bowel sounds, non tender, soft Extremities: normal range of motion - generalized weakness, non-tender Cece Gerard N.P. Oct 10, 2017 10:57
[2017-10-10 12:00] VITALS: BP 99/66
--- NOTE | 2017-10-10 12:41 | Infectious Diseases Prog Note ---
Assessment/Plan Assessment/Plan A; Perforated bowel Peritonitis with E. coli, Enterococcus, C. albicans & Prevotella Cervical cancer, metastatic P: continue Fluconazole X 3 days home hospice Subjective ROS Limited/Unobtainable: No Constitutional: Reports: anorexia Gastrointestinal/Abdominal: Reports: other - Pain Musculoskeletal: Reports: pain Allergies: Coded Allergies: No Known Allergies (Unverified , 09/10/17) Objective Vital Signs Last 24 Hour Vital Signs Date Time Temp Pulse Resp B/P (MAP) Pulse Ox O2 Delivery O2 Flow Rate FiO2 10/10/17 08:50 98.0 10/10/17 03:55 98.0 96 19 102/63 97 Room Air 10/10/17 00:00 98.0 96 18 106/66 97 Room Air 10/09/17 20:00 98.0 96 18 101/63 97 Room Air 10/09/17 17:48 99 91/59 10/09/17 16:00 98.1 99 17 106/68 97 Height (Feet): 5 Height (Inches): 3.00 Weight (Pounds): 72 General Appearance: cachetic HEENT: mucous membranes moist Respiratory/Chest: lungs clear Cardiovascular: normal rate Abdomen: soft, non tender, other - s/p colostomy Neurologic/Psychiatric: alert, oriented x 3, responsive Current Medications Medications (Trade) Dose Ordered Sig/Francoise Route PRN Reason Start Time Stop Time Status Last Admin Dose Admin Acetaminophen (Tylenol) 650 mg Q4H PRN RECTAL FEVER 09/25/17 16:30 10/22/17 16:29 Chlorhexidine Gluconate (Kenia-Hex 2%) 1 applic DAILY@1999 TOPIC 09/25/17 20:00 10/24/17 19:59 10/09/17 22:18 Dextrose (Dextrose 50%) No Dose PRN IV hypoglycemia 09/28/17 00:00 10/28/17 00:00 Dronabinol (Marinol) 2.5 mg TID ORAL 10/04/17 13:00 11/03/17 12:59 10/09/17 17:47 Fluconazole (Diflucan) 200 mg DAILY ORAL 10/04/17 14:00 10/11/17 13:59 10/10/17 08:19 Heparin Sodium (Porcine) (Heparin 5000 units/ml) 5,000 units EVERY 12 HOURS SUBQ 09/25/17 21:00 10/23/17 08:59 10/10/17 08:18 Hydromorphone HCl (Dilaudid) 1 mg Q3H PRN IVP Severe Breakthru Pain (>7) 10/09/17 16:30 10/16/17 16:29 10/10/17 11:58 Hydromorphone HCl (Dilaudid) 6 mg Q4H PRN ORAL Severe Pain (Pain Scale 7-10) 10/09/17 16:00 10/16/17 15:59 10/10/17 02:48 Methadone HCl (Methadone HCl) 5 mg Q6HR ORAL 10/09/17 18:00 10/16/17 17:59 10/10/17 06:05 Ondansetron HCl (Zofran) 4 mg Q6H PRN IVP Nausea & Vomiting 09/25/17 16:30 10/22/17 16:29 Povidone Iodine (Betadine Annamaria) 1 applic DAILY@2100 TOPIC 10/02/17 21:00 11/01/17 20:59 10/09/17 22:18 Propranolol HCl (Inderal) 10 mg BID ORAL 10/09/17 18:00 11/08/17 17:59 Senna/Docusate Sodium (Jinny-Colace) 1 tab TWICE A DAY ORAL 09/29/17 18:00 10/29/17 17:59 10/10/17 08:19 Zolpidem Tartrate (Ambien) 5 mg HSPRN PRN ORAL Insomnia 10/08/17 14:00 10/15/17 13:59 10/09/17 22:12 CHERYLE WOLFE Oct 10, 2017 12:41
--- NOTE | 2017-10-10 13:03 | General Progress Note ---
Assessment/Plan Problem List: (1) Anemia ICD Codes: D64.9 - Anemia, unspecified SNOMED: 750362985 Qualifiers: Qualified Codes: D64.9 - Anemia, unspecified (2) GI bleed ICD Codes: K92.2 - Gastrointestinal hemorrhage, unspecified SNOMED: 58824852 Qualifiers: Qualified Codes: K92.2 - Gastrointestinal hemorrhage, unspecified (3) Abdominal pain ICD Codes: R10.9 - Unspecified abdominal pain SNOMED: 63102849 Qualifiers: Qualified Codes: R10.13 - Epigastric pain Status: unchanged Assessment/Plan ot pt diet cbc bmp am gi f/u id eval dc plan Subjective Constitutional: Reports: weakness Allergies: Coded Allergies: No Known Allergies (Unverified , 09/10/17) All Systems: reviewed and negative except above Subjective sl nauseus no appetite Objective Last 24 Hour Vital Signs Date Time Temp Pulse Resp B/P (MAP) Pulse Ox O2 Delivery O2 Flow Rate FiO2 10/10/17 08:50 98.0 10/10/17 03:55 98.0 96 19 102/63 97 Room Air 10/10/17 00:00 98.0 96 18 106/66 97 Room Air 10/09/17 20:00 98.0 96 18 101/63 97 Room Air 10/09/17 17:48 99 91/59 10/09/17 16:00 98.1 99 17 106/68 97 Intake and Output 10/09/17 10/10/17 19:00 07:00 Intake Total 550 ml 480 ml Output Total 820 ml 740 ml Balance -270 ml -260 ml Intake Oral 550 ml 480 ml Output Urine Total 820 ml 720 ml Stool Total 20 ml # Bowel Movements 15 2 Height (Feet): 5 Height (Inches): 3.00 Weight (Pounds): 72 General Appearance: lethargic EENT: normal ENT inspection Neck: normal alignment Cardiovascular: normal peripheral pulses, normal rate, regular rhythm Respiratory/Chest: chest wall non-tender, lungs clear, normal breath sounds Abdomen: normal bowel sounds, non tender, soft Extremities: normal inspection Edema: no edema noted Arm (L), no edema noted Arm (R), no edema noted Leg (L), no edema noted Leg (R), no edema noted Pedal (L), no edema noted Pedal (R), no edema noted Generalized Neurologic: responsive, motor weakness Skin: normal pigmentation, warm/dry SONIDO FELICIANO Oct 10, 2017 13:03
--- NOTE | 2017-10-10 14:21 | Pulmonology Progress Note ---
Assessment/Plan Problems: (1) Intra-abdominal free air of unknown etiology (2) Perforated sigmoid colon (3) Sepsis Assessment/Plan episodes of nausea adjust pain meds/ no new complains all reviewed pain management add methadone, change to 2.5 mg. palliative care were discussed with patient, she agreed to hospice upon discharge. Subjective ROS Limited/Unobtainable: No Constitutional: Reports: no symptoms HEENT: Repors: no symptoms Allergies: Coded Allergies: No Known Allergies (Unverified , 09/10/17) Objective Last 24 Hour Vital Signs Date Time Temp Pulse Resp B/P (MAP) Pulse Ox O2 Delivery O2 Flow Rate FiO2 10/10/17 12:25 97.3 10/10/17 12:00 97.3 98 18 99/66 98 Room Air 10/10/17 08:00 97.7 104 18 93/57 98 Room Air 10/10/17 03:55 98.0 96 19 102/63 97 Room Air 10/10/17 00:00 98.0 96 18 106/66 97 Room Air 10/09/17 20:00 98.0 96 18 101/63 97 Room Air 10/09/17 17:48 99 91/59 10/09/17 16:00 98.1 99 17 106/68 97 Intake and Output 10/09/17 10/10/17 19:00 07:00 Intake Total 550 ml 480 ml Output Total 820 ml 740 ml Balance -270 ml -260 ml Intake Oral 550 ml 480 ml Output Urine Total 820 ml 720 ml Stool Total 20 ml # Bowel Movements 15 2 Objective General Appearance: WD/WN, no apparent distress, ON tpn, NGtube in place HEENT: normocephalic, atraumatic Neck: non-tender, normal alignment Respiratory/Chest: chest wall non-tender, lungs clear Breasts: no masses Cardiovascular/Chest: normal rate Abdomen: normal bowel sounds, no organomegaly Genitourinary/Rectal: normal genital exam Extremities: normal range of motion Current Medications Medications (Trade) Dose Ordered Sig/Francoise Route PRN Reason Start Time Stop Time Status Last Admin Dose Admin Acetaminophen (Tylenol) 650 mg Q4H PRN RECTAL FEVER 09/25/17 16:30 10/22/17 16:29 Chlorhexidine Gluconate (Kenia-Hex 2%) 1 applic DAILY@1999 TOPIC 09/25/17 20:00 10/24/17 19:59 10/09/17 22:18 Dextrose (Dextrose 50%) No Dose PRN IV hypoglycemia 09/28/17 00:00 10/28/17 00:00 Fluconazole (Diflucan) 200 mg DAILY ORAL 10/11/17 09:00 10/17/17 08:59 Heparin Sodium (Porcine) (Heparin 5000 units/ml) 5,000 units EVERY 12 HOURS SUBQ 09/25/17 21:00 10/23/17 08:59 10/10/17 08:18 Hydromorphone HCl (Dilaudid) 1 mg Q3H PRN IVP Severe Breakthru Pain (>7) 10/09/17 16:30 10/16/17 16:29 10/10/17 11:58 Hydromorphone HCl (Dilaudid) 6 mg Q4H PRN ORAL Severe Pain (Pain Scale 7-10) 10/09/17 16:00 10/16/17 15:59 10/10/17 02:48 Methadone HCl (Methadone HCl) 2.5 mg Q6HR ORAL 10/10/17 18:00 10/17/17 17:59 Ondansetron HCl (Zofran) 4 mg Q6H PRN IVP Nausea & Vomiting 09/25/17 16:30 10/22/17 16:29 Povidone Iodine (Betadine Annamaria) 1 applic DAILY@2100 TOPIC 10/02/17 21:00 11/01/17 20:59 10/09/17 22:18 Propranolol HCl (Inderal) 10 mg BID ORAL 10/09/17 18:00 11/08/17 17:59 Senna/Docusate Sodium (Jinny-Colace) 1 tab TWICE A DAY ORAL 09/29/17 18:00 10/29/17 17:59 10/10/17 08:19 Zolpidem Tartrate (Ambien) 5 mg HSPRN PRN ORAL Insomnia 10/08/17 14:00 10/15/17 13:59 10/09/17 22:12 JL CHAVEZ Oct 10, 2017 14:21
[2017-10-10 16:00] VITALS: BP 98/69
--- NOTE | 2017-10-10 17:02 | General Surgery Progress Note ---
General Surgery-Progress Note Objective Last 24 Hour Vital Signs Date Time Temp Pulse Resp B/P (MAP) Pulse Ox O2 Delivery O2 Flow Rate FiO2 10/10/17 16:00 97.0 105 18 98/69 100 Room Air 10/10/17 15:40 97.3 10/10/17 12:00 97.3 98 18 99/66 98 Room Air 10/10/17 08:00 97.7 104 18 93/57 98 Room Air 10/10/17 03:55 98.0 96 19 102/63 97 Room Air 10/10/17 00:00 98.0 96 18 106/66 97 Room Air 10/09/17 20:00 98.0 96 18 101/63 97 Room Air 10/09/17 17:48 99 91/59 I&O Intake and Output 10/09/17 10/10/17 19:00 07:00 Intake Total 550 ml 480 ml Output Total 820 ml 740 ml Balance -270 ml -260 ml Intake Oral 550 ml 480 ml Output Urine Total 820 ml 720 ml Stool Total 20 ml # Bowel Movements 15 2 Dressing: dry Respiratory: clear Abdomen: soft, flat, tenderness, absent bowel sounds Extremities: no tenderness Assessment Post-op Diagnosis perforation of cecum and recto-sigmoid Plan Additional Comments continue as before DWAYNE OLIVER Oct 10, 2017 17:02
[2017-10-10 20:00] VITALS: BP 113/76
[2017-10-10] MEDS: Dyna-Hex 2% Top Sol 2oz TOPIC SCH (20:00)
[2017-10-10] MEDS: Betadine 4oz Bottle TOPIC SCH (21:00)
--- NOTE | 2017-10-10 23:20 | General Progress Note ---
Assessment/Plan Status: stable Assessment/Plan # Leukocytosis is likely reactive from Acute abdominal pain 2 to perforation with perforated cecum and rectosigmoid s/p exp laparotomy with partial R hemicolectomy --> resolved, but pain still persists --> On Dilaudid for abd pain. Has improved --> continue to closely monitor. # Anemia of chronic disease --> w/u has been reviewed, mild at this time --> Blood transfusion not required unless symptomatic or hgb <7 --> PRBC not needed today. # Cervical Ca s/p surgery and radiation, has not received any chemotherapy recently --> Monitor. # Thrombocytosis is likely related to chronic reactive process --> resolved # Anemia of GI bleeding --> GI followup. # Severe protein calorie malnutrition Subjective Date patient seen: Oct 10, 2017 Constitutional: Denies: no symptoms, chills, diaphoresis, fever, malaise, weakness, other HEENT: Denies: no symptoms, eye pain, blurred vision, tearing, double vision, ear pain, ear discharge, nose pain, nose congestion, throat pain, throat swelling, mouth pain, mouth swelling, other Cardiovascular: Denies: no symptoms, chest pain, edema, irregular heart rate, lightheadedness, palpitations, syncope, other Respiratory: Denies: no symptoms, cough, orthopnea, shortness of breath, SOB with excertion, SOB at rest, sputum, stridor, wheezing, other Gastrointestinal/Abdominal: Denies: no symptoms, abdomen distended, abdominal pain, black stools, tarry stools, blood in stool, constipated, diarrhea, difficulty swallowing, nausea, poor appetite, poor fluid intake, rectal bleeding , vomiting, other Genitourinary: Denies: no symptoms, burning, discharge, frequency, flank pain, hematuria, incontinence, pain, urgency, other Allergies: Coded Allergies: No Known Allergies (Unverified , 09/10/17) Subjective On pain management. No new events overnight. Objective Last 24 Hour Vital Signs Date Time Temp Pulse Resp B/P (MAP) Pulse Ox O2 Delivery O2 Flow Rate FiO2 10/10/17 20:00 97.4 89 18 113/76 99 10/10/17 18:15 105 98/69 10/10/17 16:00 97.0 105 18 98/69 100 Room Air 10/10/17 15:40 97.3 2/6/18 12:00 97.3 98 18 99/66 98 Room Air 10/10/17 08:00 97.7 104 18 93/57 98 Room Air 10/10/17 03:55 98.0 96 19 102/63 97 Room Air 10/10/17 00:00 98.0 96 18 106/66 97 Room Air Intake and Output 10/09/17 10/10/17 19:00 07:00 Intake Total 550 ml 480 ml Output Total 820 ml 740 ml Balance -270 ml -260 ml Intake Oral 550 ml 480 ml Output Urine Total 820 ml 720 ml Stool Total 20 ml # Bowel Movements 15 2 Height (Feet): 5 Height (Inches): 3.00 Weight (Pounds): 72 General Appearance: confused Respiratory/Chest: decreased breath sounds Abdomen: non tender, soft Chris Spencer Oct 10, 2017 23:20
[2017-10-10] MEDS: Zolpidem 5mg tab ORAL PRN (23:37)
[2017-10-11] VITALS: BP 105/68
[2017-10-11] MEDS: Hydromorphone 0.5mg/0.5ml inj IVP PRN ×5 (00:38→12:50)
[2017-10-11 04:00] VITALS: BP 106/70
[2017-10-11 08:01] VITALS: BP 107/74
[2017-10-11] MEDS: Propranolol 10mg tab ORAL SCH ×2 (08:56→17:27)
[2017-10-11] MEDS: Fluconazole 100mg tab ORAL SCH (08:57)
[2017-10-11] MEDS: Docusate Sod/Senna tab ORAL SCH ×2 (08:57→17:27)
[2017-10-11 09:01] LABS: HEMATOCRIT 30.3 % (37.0-47.0); HEMOGLOBIN 10.1 G/DL (12.0-16.0); MEAN CORPUSCULAR VOLUME 89 FL (80-99); PLATELET COUNT 442 K/UL (150-450); RED BLOOD COUNT 3.39 M/UL (4.20-5.40); RED CELL DISTRIBUTION WIDTH 16.1 % (11.6-14.8)
[2017-10-11] MEDS: Heparin 5000 units/ml inj SUBQ SCH ×2 (09:05→20:10)
[2017-10-11 09:15] LABS: ALANINE AMINOTRANSFERASE 71 U/L (12-78); ALBUMIN 2.3 G/DL (3.4-5.0); ALBUMIN/GLOBULIN RATIO 0.4 (1.0-2.7); ALKALINE PHOSPHATASE 199 U/L (46-116); ANION GAP 7 mmol/L (5-15); ASPARTATE AMINO TRANSFERASE 24 U/L (15-37); BILIRUBIN,TOTAL 0.6 MG/DL (0.2-1.0); BLOOD UREA NITROGEN 14 mg/dL (7-18); CALCIUM 10.5 MG/DL (8.5-10.1); CARBON DIOXIDE 29 MMOL/L (21-32); CHLORIDE 96 MMOL/L (98-107); CREATININE 0.5 MG/DL (0.55-1.30); PHOSPHORUS 3.9 MG/DL (2.5-4.9); POTASSIUM 3.8 MMOL/L (3.5-5.1); SODIUM 132 MMOL/L (136-145)
[2017-10-11 11:43] VITALS: BP 120/72
--- NOTE | 2017-10-11 12:47 | General Progress Note ---
Assessment/Plan Problem List: (1) Anemia ICD Codes: D64.9 - Anemia, unspecified SNOMED: 721369088 Qualifiers: Qualified Codes: D64.9 - Anemia, unspecified (2) GI bleed ICD Codes: K92.2 - Gastrointestinal hemorrhage, unspecified SNOMED: 28011322 Qualifiers: Qualified Codes: K92.2 - Gastrointestinal hemorrhage, unspecified (3) Abdominal pain ICD Codes: R10.9 - Unspecified abdominal pain SNOMED: 10913002 Qualifiers: Qualified Codes: R10.13 - Epigastric pain Status: unchanged Assessment/Plan ot pt diet cbc bmp am gi f/u id eval dc plan Subjective Allergies: Coded Allergies: No Known Allergies (Unverified , 09/10/17) All Systems: reviewed and negative except above Subjective sl nauseus no appetite Objective Last 24 Hour Vital Signs Date Time Temp Pulse Resp B/P (MAP) Pulse Ox O2 Delivery O2 Flow Rate FiO2 10/11/17 11:43 97.6 90 20 120/72 99 10/11/17 08:56 77 107/74 10/11/17 08:01 97.7 77 20 107/74 100 10/11/17 08:01 Room Air 10/11/17 07:06 97.7 10/11/17 04:00 97.7 76 17 106/70 99 10/11/17 00:00 97.9 84 17 105/68 98 10/10/17 20:00 97.4 89 18 113/76 99 10/10/17 18:15 105 98/69 10/10/17 16:00 97.0 105 18 98/69 100 Room Air Intake and Output 10/10/17 10/11/17 19:00 07:00 Intake Total 240 ml Output Total 210 ml Balance 30 ml Intake Oral 240 ml Output Urine Total 200 ml Stool Total 10 ml # Voids 1 Laboratory Tests 10/11/17 07:20: White Blood Count 10.0, Red Blood Count 3.39L, Hemoglobin 10.1L, Hematocrit 30.3L, Mean Corpuscular Volume 89, Mean Corpuscular Hemoglobin 29.7, Mean Corpuscular Hemoglobin Concent 33.3, Red Cell Distribution Width 16.1H, Platelet Count 442, Mean Platelet Volume 6.3L, Neutrophils (%) (Auto) , Lymphocytes (%) (Auto) , Monocytes (%) (Auto) , Eosinophils (%) (Auto) , Basophils (%) (Auto) , Differential Total Cells Counted 100, Neutrophils % ( Manual) 84H, Lymphocytes % (Manual) 7L, Monocytes % (Manual) 5, Eosinophils % ( Manual) 4H, Basophils % (Manual) 0, Band Neutrophils 0, Platelet Estimate Adequate, Platelet Morphology Normal, Giant Platelets , Erythrocyte Sedimentation Rate 115H, Sodium Level 132L, Potassium Level 3.8, Chloride Level 96L, Carbon Dioxide Level 29, Anion Gap 7, Blood Urea Nitrogen 14, Creatinine 0.5L, Estimat Glomerular Filtration Rate > 60, Glucose Level 90, Calcium Level 10.5H, Phosphorus Level 3.9, Magnesium Level 2.0, Total Bilirubin 0.6, Aspartate Amino Transf (AST/SGOT) 24, Alanine Aminotransferase (ALT/SGPT) 71, Alkaline Phosphatase 199H, C-Reactive Protein, Quantitative 9.4H, Total Protein 7.9, Albumin 2.3L, Globulin 5.6, Albumin/Globulin Ratio 0.4L Height (Feet): 5 Height (Inches): 3.00 Weight (Pounds): 72 General Appearance: lethargic EENT: normal ENT inspection Neck: normal alignment Cardiovascular: normal peripheral pulses, normal rate, regular rhythm Respiratory/Chest: chest wall non-tender, lungs clear, normal breath sounds Abdomen: normal bowel sounds, non tender, soft Extremities: normal inspection Edema: no edema noted Arm (L), no edema noted Arm (R), no edema noted Leg (L), no edema noted Leg (R), no edema noted Pedal (L), no edema noted Pedal (R), no edema noted Generalized Neurologic: responsive, motor weakness Skin: normal pigmentation, warm/dry SONIDO FELICIANO Oct 11, 2017 12:47
--- NOTE | 2017-10-11 14:20 | GI Progress Note ---
Assessment/Plan Problems: (1) Perforation of cecum ICD Codes: K63.1 - Perforation of intestine (nontraumatic) SNOMED: 648405831 (2) Perforated sigmoid colon ICD Codes: K63.1 - Perforation of intestine (nontraumatic) SNOMED: 570766654 (3) Intra-abdominal free air of unknown etiology ICD Codes: K66.8 - Other specified disorders of peritoneum SNOMED: 18415812 (4) Abdominal pain ICD Codes: R10.9 - Unspecified abdominal pain SNOMED: 47694891 Qualifiers: Qualified Codes: R10.13 - Epigastric pain (5) GI bleed ICD Codes: K92.2 - Gastrointestinal hemorrhage, unspecified SNOMED: 76951656 Qualifiers: Qualified Codes: K92.2 - Gastrointestinal hemorrhage, unspecified (6) Anemia ICD Codes: D64.9 - Anemia, unspecified SNOMED: 823871065 Qualifiers: Qualified Codes: D64.9 - Anemia, unspecified Status: unchanged Status Narrative Discussed with Dr. Jordan. Assessment/Plan calorie count >> on regular diet, poor PO intake pt agreed to palliative care post op care Marinol electrolyte correction PT evaluation pain control fu labs Subjective Subjective generalized weakness feels better has no appetite poor PO intake Objective Last 24 Hour Vital Signs Date Time Temp Pulse Resp B/P (MAP) Pulse Ox O2 Delivery O2 Flow Rate FiO2 10/11/17 11:43 97.6 90 20 120/72 99 10/11/17 08:56 77 107/74 10/11/17 08:01 97.7 77 20 107/74 100 10/11/17 08:01 Room Air 10/11/17 07:06 97.7 10/11/17 04:00 97.7 76 17 106/70 99 10/11/17 00:00 97.9 84 17 105/68 98 10/10/17 20:00 97.4 89 18 113/76 99 10/10/17 18:15 105 98/69 10/10/17 16:00 97.0 105 18 98/69 100 Room Air Intake and Output 10/10/17 10/11/17 19:00 07:00 Intake Total 240 ml Output Total 210 ml Balance 30 ml Intake Oral 240 ml Output Urine Total 200 ml Stool Total 10 ml # Voids 1 Laboratory Tests Test 2/7/18 07:20 White Blood Count 10.0 K/UL (4.8-10.8) Red Blood Count 3.39 M/UL (4.20-5.40) L Hemoglobin 10.1 G/DL (12.0-16.0) L Hematocrit 30.3 % (37.0-47.0) L Mean Corpuscular Volume 89 FL (80-99) Mean Corpuscular Hemoglobin 29.7 PG (27.0-31.0) Mean Corpuscular Hemoglobin Concent 33.3 G/DL (32.0-36.0) Red Cell Distribution Width 16.1 % (11.6-14.8) H Platelet Count 442 K/UL (150-450) Mean Platelet Volume 6.3 FL (6.5-10.1) L Neutrophils (%) (Auto) % (45.0-75.0) Lymphocytes (%) (Auto) % (20.0-45.0) Monocytes (%) (Auto) % (1.0-10.0) Eosinophils (%) (Auto) % (0.0-3.0) Basophils (%) (Auto) % (0.0-2.0) Differential Total Cells Counted 100 Neutrophils % (Manual) 84 % (45-75) H Lymphocytes % (Manual) 7 % (20-45) L Monocytes % (Manual) 5 % (1-10) Eosinophils % (Manual) 4 % (0-3) H Basophils % (Manual) 0 % (0-2) Band Neutrophils 0 % (0-8) Platelet Estimate Adequate Platelet Morphology Normal Giant Platelets Erythrocyte Sedimentation Rate 115 MM/HR (0-20) H Sodium Level 132 MMOL/L (136-145) L Potassium Level 3.8 MMOL/L (3.5-5.1) Chloride Level 96 MMOL/L (98-107) L Carbon Dioxide Level 29 MMOL/L (21-32) Anion Gap 7 mmol/L (5-15) Blood Urea Nitrogen 14 mg/dL (7-18) Creatinine 0.5 MG/DL (0.55-1.30) L Estimat Glomerular Filtration Rate > 60 mL/min (>60) Glucose Level 90 MG/DL (74-106) Calcium Level 10.5 MG/DL (8.5-10.1) H Phosphorus Level 3.9 MG/DL (2.5-4.9) Magnesium Level 2.0 MG/DL (1.8-2.4) Total Bilirubin 0.6 MG/DL (0.2-1.0) Aspartate Amino Transf (AST/SGOT) 24 U/L (15-37) Alanine Aminotransferase (ALT/SGPT) 71 U/L (12-78) Alkaline Phosphatase 199 U/L (46-116) H C-Reactive Protein, Quantitative 9.4 mg/dL (0.00-0.90) H Total Protein 7.9 G/DL (6.4-8.2) Albumin 2.3 G/DL (3.4-5.0) L Globulin 5.6 g/dL Albumin/Globulin Ratio 0.4 (1.0-2.7) L Height (Feet): 5 Height (Inches): 3.00 Weight (Pounds): 72 General Appearance: WD/WN, no apparent distress, alert, thin Cardiovascular: normal rate Respiratory/Chest: normal breath sounds, no respiratory distress Abdominal Exam: normal bowel sounds, non tender, soft, incision site, other Extremities: normal range of motion, non-tender Cece Gerard N.P. Oct 11, 2017 14:20
--- NOTE | 2017-10-11 14:32 | Pulmonology Progress Note ---
Assessment/Plan Problems: (1) Intra-abdominal free air of unknown etiology (2) Perforated sigmoid colon (3) Sepsis Assessment/Plan episodes of nausea adjust pain meds/ no new complains all reviewed pain management add methadone, change to 5 mg. palliative care were discussed with patient, she agreed to hospice upon discharge. dc planning for am, home with hospice Subjective ROS Limited/Unobtainable: No Constitutional: Reports: no symptoms HEENT: Repors: no symptoms Respiratory: Reports: no symptoms Allergies: Coded Allergies: No Known Allergies (Unverified , 09/10/17) Objective Last 24 Hour Vital Signs Date Time Temp Pulse Resp B/P (MAP) Pulse Ox O2 Delivery O2 Flow Rate FiO2 10/11/17 11:43 97.6 90 20 120/72 99 10/11/17 08:56 77 107/74 10/11/17 08:01 97.7 77 20 107/74 100 10/11/17 08:01 Room Air 10/11/17 07:06 97.7 10/11/17 04:00 97.7 76 17 106/70 99 10/11/17 00:00 97.9 84 17 105/68 98 10/10/17 20:00 97.4 89 18 113/76 99 10/10/17 18:15 105 98/69 10/10/17 16:00 97.0 105 18 98/69 100 Room Air Intake and Output 10/10/17 10/11/17 19:00 07:00 Intake Total 240 ml Output Total 210 ml Balance 30 ml Intake Oral 240 ml Output Urine Total 200 ml Stool Total 10 ml # Voids 1 Objective General Appearance: WD/WN, no apparent distress, ON tpn, NGtube in place HEENT: normocephalic, atraumatic Neck: non-tender, normal alignment Respiratory/Chest: chest wall non-tender, lungs clear Breasts: no masses Cardiovascular/Chest: normal rate Abdomen: normal bowel sounds, no organomegaly Genitourinary/Rectal: normal genital exam Extremities: normal range of motion Laboratory Tests 10/11/17 07:20: White Blood Count 10.0, Red Blood Count 3.39L, Hemoglobin 10.1L, Hematocrit 30.3L, Mean Corpuscular Volume 89, Mean Corpuscular Hemoglobin 29.7, Mean Corpuscular Hemoglobin Concent 33.3, Red Cell Distribution Width 16.1H, Platelet Count 442, Mean Platelet Volume 6.3L, Neutrophils (%) (Auto) , Lymphocytes (%) (Auto) , Monocytes (%) (Auto) , Eosinophils (%) (Auto) , Basophils (%) (Auto) , Differential Total Cells Counted 100, Neutrophils % ( Manual) 84H, Lymphocytes % (Manual) 7L, Monocytes % (Manual) 5, Eosinophils % ( Manual) 4H, Basophils % (Manual) 0, Band Neutrophils 0, Platelet Estimate Adequate, Platelet Morphology Normal, Giant Platelets , Erythrocyte Sedimentation Rate 115H, Sodium Level 132L, Potassium Level 3.8, Chloride Level 96L, Carbon Dioxide Level 29, Anion Gap 7, Blood Urea Nitrogen 14, Creatinine 0.5L, Estimat Glomerular Filtration Rate > 60, Glucose Level 90, Calcium Level 10.5H, Phosphorus Level 3.9, Magnesium Level 2.0, Total Bilirubin 0.6, Aspartate Amino Transf (AST/SGOT) 24, Alanine Aminotransferase (ALT/SGPT) 71, Alkaline Phosphatase 199H, C-Reactive Protein, Quantitative 9.4H, Total Protein 7.9, Albumin 2.3L, Globulin 5.6, Albumin/Globulin Ratio 0.4L Current Medications Medications (Trade) Dose Ordered Sig/Francoise Route PRN Reason Start Time Stop Time Status Last Admin Dose Admin Acetaminophen (Tylenol) 650 mg Q4H PRN RECTAL FEVER 09/25/17 16:30 10/22/17 16:29 Chlorhexidine Gluconate (Kenia-Hex 2%) 1 applic DAILY@2000 TOPIC 09/25/17 20:00 10/24/17 19:59 10/09/17 22:18 Dextrose (Dextrose 50%) No Dose PRN IV hypoglycemia 09/28/17 00:00 10/28/17 00:00 Fluconazole (Diflucan) 200 mg DAILY ORAL 10/11/17 09:00 10/17/17 08:59 10/11/17 08:57 Heparin Sodium (Porcine) (Heparin 5000 units/ml) 5,000 units EVERY 12 HOURS SUBQ 09/25/17 21:00 10/23/17 08:59 10/11/17 09:05 Hydromorphone HCl (Dilaudid) 1 mg Q3H PRN IVP Severe Breakthru Pain (>7) 10/09/17 16:30 10/16/17 16:29 2/7/18 12:50 Hydromorphone HCl (Dilaudid) 6 mg Q4H PRN ORAL Severe Pain (Pain Scale 7-10) 10/09/17 16:00 10/16/17 15:59 10/10/17 02:48 Methadone HCl (Methadone HCl) 2.5 mg Q4HR ORAL 10/11/17 13:00 10/18/17 12:59 10/11/17 12:50 Ondansetron HCl (Zofran) 4 mg Q6H PRN IVP Nausea & Vomiting 09/25/17 16:30 10/22/17 16:29 Povidone Iodine (Betadine Annamaria) 1 applic DAILY@2100 TOPIC 10/02/17 21:00 11/01/17 20:59 10/09/17 22:18 Propranolol HCl (Inderal) 10 mg BID ORAL 10/09/17 18:00 11/08/17 17:59 10/11/17 08:56 Senna/Docusate Sodium (Jinny-Colace) 1 tab TWICE A DAY ORAL 09/29/17 18:00 10/29/17 17:59 10/11/17 08:57 Zolpidem Tartrate (Ambien) 5 mg HSPRN PRN ORAL Insomnia 10/08/17 14:00 10/15/17 13:59 10/10/17 23:37 JL CHAVEZ Oct 11, 2017 14:32
[2017-10-11] MEDS ORDERED: METHADONE H5 MG/5 M1 PO (14:46)
[2017-10-11] MEDS ORDERED: REGLAN5 MG ORAL (14:47)
[2017-10-11] MEDS ORDERED: DILAUDID8 MG PO (14:47)
[2017-10-11 15:55] VITALS: BP 123/74
[2017-10-11] MEDS: HYDROmorphone 2mg tab ORAL PRN (19:58)
[2017-10-11] MEDS: Betadine 4oz Bottle TOPIC SCH (19:58)
[2017-10-11 20:09] VITALS: BP 108/72
[2017-10-11] MEDS: Dyna-Hex 2% Top Sol 2oz TOPIC SCH (20:10)
--- NOTE | 2017-10-11 20:35 | Cardiology Progress Note ---
Assessment/Plan Assessment/Plan 1. Sinus tachycardia, resolved, resume propranolol. 2. Hypotension, asymptomatic, continue hydration. 3. History of cervical cancer, status post chemotherapy. 4. s/p rectosigmoid resection, complicated with peritonitis. Subjective Subjective Denies chest pain or SOB. Objective Last 24 Hour Vital Signs Date Time Temp Pulse Resp B/P (MAP) Pulse Ox O2 Delivery O2 Flow Rate FiO2 10/11/17 20:09 97.7 76 18 108/72 100 10/11/17 17:27 93 123/74 10/11/17 15:55 Room Air 10/11/17 15:55 97.8 93 20 123/74 98 10/11/17 11:43 97.6 90 20 120/72 99 10/11/17 11:43 Room Air 10/11/17 08:56 77 107/74 10/11/17 08:01 97.7 77 20 107/74 100 10/11/17 08:01 Room Air 10/11/17 07:06 97.7 10/11/17 04:00 97.7 76 17 106/70 99 10/11/17 00:00 97.9 84 17 105/68 98 Intake and Output 10/10/17 10/11/17 19:00 07:00 Intake Total 240 ml Output Total 210 ml Balance 30 ml Intake Oral 240 ml Output Urine Total 200 ml Stool Total 10 ml # Voids 1 Laboratory Tests Test 10/11/17 07:20 White Blood Count 10.0 K/UL (4.8-10.8) Red Blood Count 3.39 M/UL (4.20-5.40) L Hemoglobin 10.1 G/DL (12.0-16.0) L Hematocrit 30.3 % (37.0-47.0) L Mean Corpuscular Volume 89 FL (80-99) Mean Corpuscular Hemoglobin 29.7 PG (27.0-31.0) Mean Corpuscular Hemoglobin Concent 33.3 G/DL (32.0-36.0) Red Cell Distribution Width 16.1 % (11.6-14.8) H Platelet Count 442 K/UL (150-450) Mean Platelet Volume 6.3 FL (6.5-10.1) L Neutrophils (%) (Auto) % (45.0-75.0) Lymphocytes (%) (Auto) % (20.0-45.0) Monocytes (%) (Auto) % (1.0-10.0) Eosinophils (%) (Auto) % (0.0-3.0) Basophils (%) (Auto) % (0.0-2.0) Differential Total Cells Counted 100 Neutrophils % (Manual) 84 % (45-75) H Lymphocytes % (Manual) 7 % (20-45) L Monocytes % (Manual) 5 % (1-10) Eosinophils % (Manual) 4 % (0-3) H Basophils % (Manual) 0 % (0-2) Band Neutrophils 0 % (0-8) Platelet Estimate Adequate Platelet Morphology Normal Giant Platelets Erythrocyte Sedimentation Rate 115 MM/HR (0-20) H Sodium Level 132 MMOL/L (136-145) L Potassium Level 3.8 MMOL/L (3.5-5.1) Chloride Level 96 MMOL/L (98-107) L Carbon Dioxide Level 29 MMOL/L (21-32) Anion Gap 7 mmol/L (5-15) Blood Urea Nitrogen 14 mg/dL (7-18) Creatinine 0.5 MG/DL (0.55-1.30) L Estimat Glomerular Filtration Rate > 60 mL/min (>60) Glucose Level 90 MG/DL (74-106) Calcium Level 10.5 MG/DL (8.5-10.1) H Phosphorus Level 3.9 MG/DL (2.5-4.9) Magnesium Level 2.0 MG/DL (1.8-2.4) Total Bilirubin 0.6 MG/DL (0.2-1.0) Aspartate Amino Transf (AST/SGOT) 24 U/L (15-37) Alanine Aminotransferase (ALT/SGPT) 71 U/L (12-78) Alkaline Phosphatase 199 U/L (46-116) H C-Reactive Protein, Quantitative 9.4 mg/dL (0.00-0.90) H Total Protein 7.9 G/DL (6.4-8.2) Albumin 2.3 G/DL (3.4-5.0) L Globulin 5.6 g/dL Albumin/Globulin Ratio 0.4 (1.0-2.7) L Objective HEENT: Atraumatic and normocephalic. Anicteric. Pupils are equal, round,and reactive to light and accommodation. There is conjunctival pallor. NECK: JVP less than 5 cm. No carotid bruit. Carotid upstrokes 2+ bilaterally. CARDIOVASCULAR: Normal S1 and S2. Regular rate and rhythm. No murmurs, gallops , or rubs. LUNGS: Clear to auscultation bilaterally. ABDOMEN: Soft, nontender, and nondistended. No hepatosplenomegaly. Positive bowel sounds. EXTREMITIES: No evidence of edema, clubbing, or cyanosis. JUDITH WATSON Oct 11, 2017 20:35
--- NOTE | 2017-10-11 20:41 | Nephrology Progress Note ---
Assessment/Plan Assessment 1. Acute renal failure 2. Hyponatremia worse spoke to pharmacist increased NA to 90 3. Malnutrition. 4. hyperkalemia.resolved 5. Dehydration. 6. History of cervical cancer. Plan plan adjust TPN mix all ivpb with ns .9 monitoring renal function avoid NSAID replace electrolyte as need it Subjective Subjective alert and awake no acute events Objective Objective Last 24 Hour Vital Signs Date Time Temp Pulse Resp B/P (MAP) Pulse Ox O2 Delivery O2 Flow Rate FiO2 10/11/17 20:09 97.7 76 18 108/72 100 10/11/17 17:27 93 123/74 10/11/17 15:55 Room Air 10/11/17 15:55 97.8 93 20 123/74 98 10/11/17 11:43 97.6 90 20 120/72 99 10/11/17 11:43 Room Air 10/11/17 08:56 77 107/74 10/11/17 08:01 97.7 77 20 107/74 100 10/11/17 08:01 Room Air 10/11/17 07:06 97.7 10/11/17 04:00 97.7 76 17 106/70 99 10/11/17 00:00 97.9 84 17 105/68 98 Intake and Output 10/10/17 10/11/17 19:00 07:00 Intake Total 240 ml Output Total 210 ml Balance 30 ml Intake Oral 240 ml Output Urine Total 200 ml Stool Total 10 ml # Voids 1 Laboratory Tests 10/11/17 07:20: White Blood Count 10.0, Red Blood Count 3.39L, Hemoglobin 10.1L, Hematocrit 30.3L, Mean Corpuscular Volume 89, Mean Corpuscular Hemoglobin 29.7, Mean Corpuscular Hemoglobin Concent 33.3, Red Cell Distribution Width 16.1H, Platelet Count 442, Mean Platelet Volume 6.3L, Neutrophils (%) (Auto) , Lymphocytes (%) (Auto) , Monocytes (%) (Auto) , Eosinophils (%) (Auto) , Basophils (%) (Auto) , Differential Total Cells Counted 100, Neutrophils % ( Manual) 84H, Lymphocytes % (Manual) 7L, Monocytes % (Manual) 5, Eosinophils % ( Manual) 4H, Basophils % (Manual) 0, Band Neutrophils 0, Platelet Estimate Adequate, Platelet Morphology Normal, Giant Platelets , Erythrocyte Sedimentation Rate 115H, Sodium Level 132L, Potassium Level 3.8, Chloride Level 96L, Carbon Dioxide Level 29, Anion Gap 7, Blood Urea Nitrogen 14, Creatinine 0.5L, Estimat Glomerular Filtration Rate > 60, Glucose Level 90, Calcium Level 10.5H, Phosphorus Level 3.9, Magnesium Level 2.0, Total Bilirubin 0.6, Aspartate Amino Transf (AST/SGOT) 24, Alanine Aminotransferase (ALT/SGPT) 71, Alkaline Phosphatase 199H, C-Reactive Protein, Quantitative 9.4H, Total Protein 7.9, Albumin 2.3L, Globulin 5.6, Albumin/Globulin Ratio 0.4L Height (Feet): 5 Height (Inches): 3.00 Weight (Pounds): 72 Objective HEAD AND NECK: No JVP. No LAD. No thyromegaly. Extraocular movement intact. Pupils are reactive to light and accommodation. LUNGS: Decreased breathing sounds. CARDIAC: Regular rate and rhythm. S1 and S2. No murmur. No rub. ABDOMEN: Distended. Bowel sounds are positive. Diffuse tenderness. No guarding. No rebound. EXTREMITIES: A 1+ to 2+ edema. No clubbing. No cyanosis. NEUROLOGIC: Cranial nerves II through XII within normal limits. Upper and lower extremities are grossly intact. LORRAINE GROVER Oct 11, 2017 20:41
--- NOTE | 2017-10-11 23:18 | General Progress Note ---
Assessment/Plan Status: stable Assessment/Plan # Leukocytosis is likely reactive from Acute abdominal pain 2 to perforation with perforated cecum and rectosigmoid s/p exp laparotomy with partial R hemicolectomy --> resolved, but pain still persists --> On Dilaudid for abd pain. Pt feeling better. --> continue to closely monitor. # Anemia of chronic disease --> w/u has been reviewed, mild at this time --> Blood transfusion not required unless symptomatic or hgb <7 --> PRBC not needed today. # Cervical Ca s/p surgery and radiation, has not received any chemotherapy recently --> Monitor. # Thrombocytosis is likely related to chronic reactive process --> resolved # Anemia of GI bleeding --> GI followup. # Severe protein calorie malnutrition Subjective Date patient seen: Oct 11, 2017 Constitutional: Denies: no symptoms, chills, diaphoresis, fever, malaise, weakness, other HEENT: Denies: no symptoms, eye pain, blurred vision, tearing, double vision, ear pain, ear discharge, nose pain, nose congestion, throat pain, throat swelling, mouth pain, mouth swelling, other Cardiovascular: Denies: no symptoms, chest pain, edema, irregular heart rate, lightheadedness, palpitations, syncope, other Respiratory: Denies: no symptoms, cough, orthopnea, shortness of breath, SOB with excertion, SOB at rest, sputum, stridor, wheezing, other Gastrointestinal/Abdominal: Denies: no symptoms, abdomen distended, abdominal pain, black stools, tarry stools, blood in stool, constipated, diarrhea, difficulty swallowing, nausea, poor appetite, poor fluid intake, rectal bleeding , vomiting, other Genitourinary: Denies: no symptoms, burning, discharge, frequency, flank pain, hematuria, incontinence, pain, urgency, other Hematologic/Lymphatic: Reports: anemia Allergies: Coded Allergies: No Known Allergies (Unverified , 09/10/17) Subjective Abd pain controlled. Pt feeling better. Pending discharge. Objective Last 24 Hour Vital Signs Date Time Temp Pulse Resp B/P (MAP) Pulse Ox O2 Delivery O2 Flow Rate FiO2 10/11/17 20:09 97.7 76 18 108/72 100 10/11/17 17:27 93 123/74 10/11/17 15:55 Room Air 10/11/17 15:55 97.8 93 20 123/74 98 10/11/17 11:43 97.6 90 20 120/72 99 10/11/17 11:43 Room Air 10/11/17 08:56 77 107/74 10/11/17 08:01 97.7 77 20 107/74 100 10/11/17 08:01 Room Air 10/11/17 07:06 97.7 10/11/17 04:00 97.7 76 17 106/70 99 10/11/17 00:00 97.9 84 17 105/68 98 Intake and Output 10/10/17 10/11/17 19:00 07:00 Intake Total 240 ml Output Total 210 ml Balance 30 ml Intake Oral 240 ml Output Urine Total 200 ml Stool Total 10 ml # Voids 1 Laboratory Tests 10/11/17 07:20: White Blood Count 10.0, Red Blood Count 3.39L, Hemoglobin 10.1L, Hematocrit 30.3L, Mean Corpuscular Volume 89, Mean Corpuscular Hemoglobin 29.7, Mean Corpuscular Hemoglobin Concent 33.3, Red Cell Distribution Width 16.1H, Platelet Count 442, Mean Platelet Volume 6.3L, Neutrophils (%) (Auto) , Lymphocytes (%) (Auto) , Monocytes (%) (Auto) , Eosinophils (%) (Auto) , Basophils (%) (Auto) , Differential Total Cells Counted 100, Neutrophils % ( Manual) 84H, Lymphocytes % (Manual) 7L, Monocytes % (Manual) 5, Eosinophils % ( Manual) 4H, Basophils % (Manual) 0, Band Neutrophils 0, Platelet Estimate Adequate, Platelet Morphology Normal, Giant Platelets , Erythrocyte Sedimentation Rate 115H, Sodium Level 132L, Potassium Level 3.8, Chloride Level 96L, Carbon Dioxide Level 29, Anion Gap 7, Blood Urea Nitrogen 14, Creatinine 0.5L, Estimat Glomerular Filtration Rate > 60, Glucose Level 90, Calcium Level 10.5H, Phosphorus Level 3.9, Magnesium Level 2.0, Total Bilirubin 0.6, Aspartate Amino Transf (AST/SGOT) 24, Alanine Aminotransferase (ALT/SGPT) 71, Alkaline Phosphatase 199H, C-Reactive Protein, Quantitative 9.4H, Total Protein 7.9, Albumin 2.3L, Globulin 5.6, Albumin/Globulin Ratio 0.4L Height (Feet): 5 Height (Inches): 3.00 Weight (Pounds): 72 General Appearance: no apparent distress Neck: supple Cardiovascular: regular rhythm Respiratory/Chest: decreased breath sounds Chris Spencer Oct 11, 2017 23:18
[2017-10-12 00:29] VITALS: BP 115/76
[2017-10-12 04:26] VITALS: BP 120/70
[2017-10-12 07:47] LABS: EOSINOPHILS % (AUTO) 2.8 % (0.0-3.0); HEMATOCRIT 32.6 % (37.0-47.0); HEMOGLOBIN 11.2 G/DL (12.0-16.0); LYMPHOCYTES % (AUTO) 8.5 % (20.0-45.0); MEAN CORPUSCULAR VOLUME 88 FL (80-99); MONOCYTES % (AUTO) 4.2 % (1.0-10.0); NEUTROPHILS % (AUTO) 83.4 % (45.0-75.0); PLATELET COUNT 518 K/UL (150-450); RED BLOOD COUNT 3.69 M/UL (4.20-5.40); RED CELL DISTRIBUTION WIDTH 15.7 % (11.6-14.8); WHITE BLOOD COUNT 9.8 K/UL (4.8-10.8)
[2017-10-12 08:00] VITALS: BP 106/63
[2017-10-12 08:13] LABS: ANION GAP 6 mmol/L (5-15); BLOOD UREA NITROGEN 13 mg/dL (7-18); CALCIUM 10.8 MG/DL (8.5-10.1); CARBON DIOXIDE 30 MMOL/L (21-32); CHLORIDE 95 MMOL/L (98-107); CREATININE 0.6 MG/DL (0.55-1.30); POTASSIUM 4.1 MMOL/L (3.5-5.1); SODIUM 131 MMOL/L (136-145)
--- NOTE | 2017-10-12 08:42 | Cardiology Progress Note ---
Assessment/Plan Assessment/Plan 1. Sinus tachycardia, resolved, resume propranolol. 2. Hypotension, resolved, continue hydration. 3. History of cervical cancer, status post chemotherapy. 4. s/p rectosigmoid resection, complicated with peritonitis. Subjective Subjective Denies chest pain or SOB. Not on the tele unit. Objective Last 24 Hour Vital Signs Date Time Temp Pulse Resp B/P (MAP) Pulse Ox O2 Delivery O2 Flow Rate FiO2 10/12/17 04:26 97.5 77 17 120/70 97 10/12/17 00:29 97.9 74 17 115/76 98 10/11/17 20:09 97.7 76 18 108/72 100 10/11/17 17:27 93 123/74 10/11/17 15:55 Room Air 10/11/17 15:55 97.8 93 20 123/74 98 10/11/17 11:43 97.6 90 20 120/72 99 10/11/17 11:43 Room Air 10/11/17 08:56 77 107/74 Intake and Output 10/11/17 10/12/17 19:00 07:00 Intake Total 240 ml 460 ml Output Total 250 ml 200 ml Balance -10 ml 260 ml Intake Oral 240 ml 460 ml Output Urine Total 250 ml 200 ml # Voids 1 1 Laboratory Tests Test 10/12/17 05:50 White Blood Count 9.8 K/UL (4.8-10.8) Red Blood Count 3.69 M/UL (4.20-5.40) L Hemoglobin 11.2 G/DL (12.0-16.0) L Hematocrit 32.6 % (37.0-47.0) L Mean Corpuscular Volume 88 FL (80-99) Mean Corpuscular Hemoglobin 30.5 PG (27.0-31.0) Mean Corpuscular Hemoglobin Concent 34.4 G/DL (32.0-36.0) Red Cell Distribution Width 15.7 % (11.6-14.8) H Platelet Count 518 K/UL (150-450) H Mean Platelet Volume 6.5 FL (6.5-10.1) Neutrophils (%) (Auto) 83.4 % (45.0-75.0) H Lymphocytes (%) (Auto) 8.5 % (20.0-45.0) L Monocytes (%) (Auto) 4.2 % (1.0-10.0) Eosinophils (%) (Auto) 2.8 % (0.0-3.0) Basophils (%) (Auto) 1.0 % (0.0-2.0) Sodium Level 131 MMOL/L (136-145) L Potassium Level 4.1 MMOL/L (3.5-5.1) Chloride Level 95 MMOL/L (98-107) L Carbon Dioxide Level 30 MMOL/L (21-32) Anion Gap 6 mmol/L (5-15) Blood Urea Nitrogen 13 mg/dL (7-18) Creatinine 0.6 MG/DL (0.55-1.30) Estimat Glomerular Filtration Rate > 60 mL/min (>60) Glucose Level 83 MG/DL (74-106) Calcium Level 10.8 MG/DL (8.5-10.1) H Objective HEENT: Atraumatic and normocephalic. Anicteric. Pupils are equal, round,and reactive to light and accommodation. There is conjunctival pallor. NECK: JVP less than 5 cm. No carotid bruit. Carotid upstrokes 2+ bilaterally. CARDIOVASCULAR: Normal S1 and S2. Regular rate and rhythm. No murmurs, gallops , or rubs. LUNGS: Clear to auscultation bilaterally. ABDOMEN: Soft, nontender, and nondistended. No hepatosplenomegaly. Positive bowel sounds. EXTREMITIES: No evidence of edema, clubbing, or cyanosis. JUDITH WATSON Oct 12, 2017 08:42
[2017-10-12] MEDS: Heparin 5000 units/ml inj SUBQ SCH ×2 (09:00→21:00)
[2017-10-12] MEDS: Docusate Sod/Senna tab ORAL SCH ×2 (09:01→18:30)
[2017-10-12] MEDS: Propranolol 10mg tab ORAL SCH ×2 (09:01→18:00)
[2017-10-12] MEDS: Fluconazole 100mg tab ORAL SCH (09:02)
--- NOTE | 2017-10-12 10:16 | GI Progress Note ---
Assessment/Plan Problems: (1) Perforation of cecum ICD Codes: K63.1 - Perforation of intestine (nontraumatic) SNOMED: 319075812 (2) Perforated sigmoid colon ICD Codes: K63.1 - Perforation of intestine (nontraumatic) SNOMED: 105989960 (3) Intra-abdominal free air of unknown etiology ICD Codes: K66.8 - Other specified disorders of peritoneum SNOMED: 00156892 (4) Abdominal pain ICD Codes: R10.9 - Unspecified abdominal pain SNOMED: 49442509 Qualifiers: Qualified Codes: R10.13 - Epigastric pain (5) GI bleed ICD Codes: K92.2 - Gastrointestinal hemorrhage, unspecified SNOMED: 87215626 Qualifiers: Qualified Codes: K92.2 - Gastrointestinal hemorrhage, unspecified (6) Anemia ICD Codes: D64.9 - Anemia, unspecified SNOMED: 852908977 Qualifiers: Qualified Codes: D64.9 - Anemia, unspecified Status: not improved, unchanged Status Narrative Discussed with Dr. Jordan. Assessment/Plan pt agreed to palliative care, no more lab draws post op care Marinol PT evaluation pain control fu labs Subjective Subjective generalized weakness has no appetite poor PO intake Objective Last 24 Hour Vital Signs Date Time Temp Pulse Resp B/P (MAP) Pulse Ox O2 Delivery O2 Flow Rate FiO2 10/12/17 09:01 82 106/63 10/12/17 08:00 97.7 82 18 106/63 97 10/12/17 04:26 97.5 77 17 120/70 97 10/12/17 00:29 97.9 74 17 115/76 98 10/11/17 20:09 97.7 76 18 108/72 100 10/11/17 17:27 93 123/74 10/11/17 15:55 Room Air 10/11/17 15:55 97.8 93 20 123/74 98 10/11/17 11:43 97.6 90 20 120/72 99 10/11/17 11:43 Room Air Intake and Output 10/11/17 10/12/17 19:00 07:00 Intake Total 240 ml 460 ml Output Total 250 ml 200 ml Balance -10 ml 260 ml Intake Oral 240 ml 460 ml Output Urine Total 250 ml 200 ml # Voids 1 1 Laboratory Tests Test 10/12/17 05:50 White Blood Count 9.8 K/UL (4.8-10.8) Red Blood Count 3.69 M/UL (4.20-5.40) L Hemoglobin 11.2 G/DL (12.0-16.0) L Hematocrit 32.6 % (37.0-47.0) L Mean Corpuscular Volume 88 FL (80-99) Mean Corpuscular Hemoglobin 30.5 PG (27.0-31.0) Mean Corpuscular Hemoglobin Concent 34.4 G/DL (32.0-36.0) Red Cell Distribution Width 15.7 % (11.6-14.8) H Platelet Count 518 K/UL (150-450) H Mean Platelet Volume 6.5 FL (6.5-10.1) Neutrophils (%) (Auto) 83.4 % (45.0-75.0) H Lymphocytes (%) (Auto) 8.5 % (20.0-45.0) L Monocytes (%) (Auto) 4.2 % (1.0-10.0) Eosinophils (%) (Auto) 2.8 % (0.0-3.0) Basophils (%) (Auto) 1.0 % (0.0-2.0) Sodium Level 131 MMOL/L (136-145) L Potassium Level 4.1 MMOL/L (3.5-5.1) Chloride Level 95 MMOL/L (98-107) L Carbon Dioxide Level 30 MMOL/L (21-32) Anion Gap 6 mmol/L (5-15) Blood Urea Nitrogen 13 mg/dL (7-18) Creatinine 0.6 MG/DL (0.55-1.30) Estimat Glomerular Filtration Rate > 60 mL/min (>60) Glucose Level 83 MG/DL (74-106) Calcium Level 10.8 MG/DL (8.5-10.1) H Height (Feet): 5 Height (Inches): 3.00 Weight (Pounds): 72 General Appearance: alert, thin Cardiovascular: normal rate Respiratory/Chest: normal breath sounds, no accessory muscle use Abdominal Exam: normal bowel sounds, non tender, soft, incision site Cece Gerard N.P. Oct 12, 2017 10:16
[2017-10-12 12:00] VITALS: BP 100/62
[2017-10-12] MEDS: HYDROmorphone 2mg tab ORAL PRN (12:58)
--- NOTE | 2017-10-12 13:09 | Infectious Diseases Prog Note ---
Assessment/Plan Assessment/Plan A; Perforated bowel Peritonitis with E. coli, Enterococcus, C. albicans & Prevotella Cervical cancer, metastatic P: discontinue Fluconazole home hospice Subjective ROS Limited/Unobtainable: No Constitutional: Reports: anorexia Respiratory: Reports: no symptoms Gastrointestinal/Abdominal: Reports: other - pain Genitourinary: Reports: no symptoms Allergies: Coded Allergies: No Known Allergies (Unverified , 09/10/17) Objective Vital Signs Last 24 Hour Vital Signs Date Time Temp Pulse Resp B/P (MAP) Pulse Ox O2 Delivery O2 Flow Rate FiO2 10/12/17 12:00 97.7 74 17 100/62 98 10/12/17 09:01 82 106/63 10/12/17 08:00 97.7 82 18 106/63 97 10/12/17 04:26 97.5 77 17 120/70 97 10/12/17 00:29 97.9 74 17 115/76 98 10/11/17 20:09 97.7 76 18 108/72 100 10/11/17 17:27 93 123/74 10/11/17 15:55 Room Air 10/11/17 15:55 97.8 93 20 123/74 98 Height (Feet): 5 Height (Inches): 3.00 Weight (Pounds): 72 General Appearance: cachetic HEENT: mucous membranes moist Respiratory/Chest: lungs clear Cardiovascular: normal rate Abdomen: soft, non tender, other - s/p colostomy Extremities: no edema Neurologic/Psychiatric: alert, oriented x 3, responsive Musculoskeletal: atrophy Laboratory Tests Test 10/12/17 05:50 White Blood Count 9.8 K/UL (4.8-10.8) Red Blood Count 3.69 M/UL (4.20-5.40) L Hemoglobin 11.2 G/DL (12.0-16.0) L Hematocrit 32.6 % (37.0-47.0) L Mean Corpuscular Volume 88 FL (80-99) Mean Corpuscular Hemoglobin 30.5 PG (27.0-31.0) Mean Corpuscular Hemoglobin Concent 34.4 G/DL (32.0-36.0) Red Cell Distribution Width 15.7 % (11.6-14.8) H Platelet Count 518 K/UL (150-450) H Mean Platelet Volume 6.5 FL (6.5-10.1) Neutrophils (%) (Auto) 83.4 % (45.0-75.0) H Lymphocytes (%) (Auto) 8.5 % (20.0-45.0) L Monocytes (%) (Auto) 4.2 % (1.0-10.0) Eosinophils (%) (Auto) 2.8 % (0.0-3.0) Basophils (%) (Auto) 1.0 % (0.0-2.0) Sodium Level 131 MMOL/L (136-145) L Potassium Level 4.1 MMOL/L (3.5-5.1) Chloride Level 95 MMOL/L (98-107) L Carbon Dioxide Level 30 MMOL/L (21-32) Anion Gap 6 mmol/L (5-15) Blood Urea Nitrogen 13 mg/dL (7-18) Creatinine 0.6 MG/DL (0.55-1.30) Estimat Glomerular Filtration Rate > 60 mL/min (>60) Glucose Level 83 MG/DL (74-106) Calcium Level 10.8 MG/DL (8.5-10.1) H Current Medications Medications (Trade) Dose Ordered Sig/Fr[place] Route PRN Reason Start Time Stop Time Status Last Admin Dose Admin Acetaminophen (Tylenol) 650 mg Q4H PRN RECTAL FEVER 09/25/17 16:30 10/22/17 16:29 Chlorhexidine Gluconate (Kenia-Hex 2%) 1 applic DAILY@2000 TOPIC 09/25/17 20:00 10/24/17 19:59 10/11/17 20:10 Dextrose (Dextrose 50%) No Dose PRN IV hypoglycemia 09/28/17 00:00 10/28/17 00:00 Fluconazole (Diflucan) 200 mg DAILY ORAL 10/11/17 09:00 10/17/17 08:59 10/12/17 09:02 Heparin Sodium (Porcine) (Heparin 5000 units/ml) 5,000 units EVERY 12 HOURS SUBQ 09/25/17 21:00 10/23/17 08:59 10/11/17 09:05 Hydromorphone HCl (Dilaudid) 2 mg Q6H PRN IVP Severe Breakthru Pain (>7) 10/11/17 16:00 10/18/17 15:59 10/12/17 09:39 Hydromorphone HCl (Dilaudid) 4 mg Q6H PRN ORAL Severe Pain (Pain Scale 7-10) 10/11/17 16:00 10/18/17 15:59 10/12/17 12:58 Methadone HCl (Methadone HCl) 5 mg Q4HR ORAL 10/11/17 17:00 10/18/17 16:59 10/12/17 12:59 Ondansetron HCl (Zofran) 4 mg Q6H PRN IVP Nausea & Vomiting 09/25/17 16:30 10/22/17 16:29 Povidone Iodine (Betadine Annamaria) 1 applic DAILY@2100 TOPIC 10/02/17 21:00 11/01/17 20:59 10/11/17 19:58 Propranolol HCl (Inderal) 10 mg BID ORAL 10/09/17 18:00 11/08/17 17:59 10/12/17 09:01 Senna/Docusate Sodium (Jinny-Colace) 1 tab TWICE A DAY ORAL 09/29/17 18:00 10/29/17 17:59 10/12/17 09:01 Zolpidem Tartrate (Ambien) 5 mg HSPRN PRN ORAL Insomnia 10/08/17 14:00 10/15/17 13:59 10/10/17 23:37 CHERYLE WOLFE Oct 12, 2017 13:09
[2017-10-12] MEDS ORDERED: FLUCONAZOLE100 MG ORAL (13:45)
[2017-10-12] MEDS ORDERED: AUGMENTIN 875-1 EAC1 ORAL (13:48)
--- NOTE | 2017-10-12 13:51 | General Progress Note ---
Assessment/Plan Problem List: (1) Anemia ICD Codes: D64.9 - Anemia, unspecified SNOMED: 931758447 Qualifiers: Qualified Codes: D64.9 - Anemia, unspecified (2) GI bleed ICD Codes: K92.2 - Gastrointestinal hemorrhage, unspecified SNOMED: 44596448 Qualifiers: Qualified Codes: K92.2 - Gastrointestinal hemorrhage, unspecified (3) Abdominal pain ICD Codes: R10.9 - Unspecified abdominal pain SNOMED: [id number] Qualifiers: Qualified Codes: R10.13 - Epigastric pain Status: unchanged Assessment/Plan ot pt diet dc w hospice Subjective Constitutional: Reports: weakness Allergies: Coded Allergies: No Known Allergies (Unverified , 09/10/17) All Systems: reviewed and negative except above Subjective sl nauseus sl appetite Objective Last 24 Hour Vital Signs Date Time Temp Pulse Resp B/P (MAP) Pulse Ox O2 Delivery O2 Flow Rate FiO2 10/12/17 12:00 97.7 74 17 100/62 98 10/12/17 09:01 82 106/63 10/12/17 08:00 97.7 82 18 106/63 97 10/12/17 04:26 97.5 77 17 120/70 97 10/12/17 00:29 97.9 74 17 115/76 98 10/11/17 20:09 97.7 76 18 108/72 100 10/11/17 17:27 93 123/74 10/11/17 15:55 Room Air 10/11/17 15:55 97.8 93 20 123/74 98 Intake and Output 10/11/17 10/12/17 19:00 07:00 Intake Total 240 ml 460 ml Output Total 250 ml 200 ml Balance -10 ml 260 ml Intake Oral 240 ml 460 ml Output Urine Total 250 ml 200 ml # Voids 1 1 Laboratory Tests 10/12/17 05:50: White Blood Count 9.8, Red Blood Count 3.69L, Hemoglobin 11.2L, Hematocrit 32.6L , Mean Corpuscular Volume 88, Mean Corpuscular Hemoglobin 30.5, Mean Corpuscular Hemoglobin Concent 34.4, Red Cell Distribution Width 15.7H, Platelet Count 518H, Mean Platelet Volume 6.5, Neutrophils (%) (Auto) 83.4H, Lymphocytes (%) (Auto) 8.5L, Monocytes (%) (Auto) 4.2, Eosinophils (%) (Auto) 2.8, Basophils (%) (Auto) 1.0, Sodium Level 131L, Potassium Level 4.1, Chloride Level 95L, Carbon Dioxide Level 30, Anion Gap 6, Blood Urea Nitrogen 13, Creatinine 0.6, Estimat Glomerular Filtration Rate > 60, Glucose Level 83, Calcium Level 10.8H Height (Feet): 5 Height (Inches): 3.00 Weight (Pounds): 72 General Appearance: lethargic EENT: PERRL/EOMI Neck: normal alignment Cardiovascular: normal peripheral pulses, normal rate, regular rhythm Respiratory/Chest: chest wall non-tender, lungs clear, normal breath sounds Abdomen: normal bowel sounds, non tender, soft Extremities: normal inspection Edema: no edema noted Arm (L), no edema noted Arm (R), no edema noted Leg (L), no edema noted Leg (R), no edema noted Pedal (L), no edema noted Pedal (R), no edema noted Generalized Neurologic: responsive, motor weakness Skin: normal pigmentation, warm/dry SONIDO FELICIANO Oct 12, 2017 13:50
--- NOTE | 2017-10-12 15:07 | Wound Care Consultation ---
Wound Assessment Wound Assessment : Wound Number: 1 Wound Present on Admission: No New Wound: Yes Status Change of Wound: No Wound Location Body Site Modif: mid Wound Location Body Site: sacral Wound Type: pressure ulcer Neelima Test: Does not Neelima Pressure Ulcer Stage: Unstageable Wound Thickness: Full Thickness Wound Length: 4.5 Wound Width: 4.5 Wound Depth: utd Percent of Wound Bed Yellow/Wh: 10 Percent of Wound Black/Brown: 90 Wound Drainage Amount: None Wound Drainage Odor: None/Absent Tissue Surrounding Wound: Indurated Wound General Appearance: Blackened Wound Comment #1 Sacral unstageable pressure ulcer Recommendation -Local wound car per protocol -Optimize nutrition -Offload both heels -Heel protector on both heels -Turn and reposition -Low air loss mattress -Keep clean and dry -Assess and f/u accordingly for any changes RAINER CONDON RN Oct 12, 2017 15:07
[2017-10-12 16:00] VITALS: BP 95/61
[2017-10-12] MEDS: Dyna-Hex 2% Top Sol 2oz TOPIC SCH (20:00)
[2017-10-12 20:30] VITALS: BP 96/58
[2017-10-12] MEDS: Betadine 4oz Bottle TOPIC SCH (21:00)
--- NOTE | 2017-10-12 23:08 | General Progress Note ---
Assessment/Plan Status: stable Assessment/Plan # Leukocytosis is likely reactive from Acute abdominal pain 2 to perforation with perforated cecum and rectosigmoid s/p exp laparotomy with partial R hemicolectomy --> Wbc count WNL. --> On Dilaudid for abd pain. Pt feeling better. --> continue to closely monitor. # Anemia of chronic disease --> w/u has been reviewed, mild at this time --> Blood transfusion not required unless symptomatic or hgb <7 --> Hemoglobin has been >11, no blood transfusion needed. # Cervical Ca s/p surgery and radiation, has not received any chemotherapy recently --> Monitor. # Thrombocytosis is likely related to chronic reactive process --> resolved # Anemia of GI bleeding --> GI followup. # Severe protein calorie malnutrition Subjective Date patient seen: Oct 12, 2017 Constitutional: Denies: no symptoms, chills, diaphoresis, fever, malaise, weakness, other HEENT: Denies: no symptoms, eye pain, blurred vision, tearing, double vision, ear pain, ear discharge, nose pain, nose congestion, throat pain, throat swelling, mouth pain, mouth swelling, other Cardiovascular: Denies: no symptoms, chest pain, edema, irregular heart rate, lightheadedness, palpitations, syncope, other Gastrointestinal/Abdominal: Denies: no symptoms, abdomen distended, abdominal pain, black stools, tarry stools, blood in stool, constipated, diarrhea, difficulty swallowing, nausea, poor appetite, poor fluid intake, rectal bleeding , vomiting, other Genitourinary: Denies: no symptoms, burning, discharge, frequency, flank pain, hematuria, incontinence, pain, urgency, other Allergies: Coded Allergies: No Known Allergies (Unverified , 09/10/17) Subjective Abd pain controlled. No fever. Wound care done. Pending discharge. Objective Last 24 Hour Vital Signs Date Time Temp Pulse Resp B/P (MAP) Pulse Ox O2 Delivery O2 Flow Rate FiO2 10/12/17 20:30 98.0 77 17 96/58 98 10/12/17 18:00 74 95/57 10/12/17 16:00 98.1 74 18 95/61 98 10/12/17 16:00 Room Air 10/12/17 12:00 97.7 74 17 100/62 98 10/12/17 12:00 Room Air 10/12/17 09:01 82 106/63 10/12/17 08:00 Room Air 10/12/17 08:00 97.7 82 18 106/63 97 10/12/17 04:26 97.5 77 17 120/70 97 10/12/17 00:29 97.9 74 17 115/76 98 Intake and Output 10/11/17 10/12/17 19:00 07:00 Intake Total 240 ml 460 ml Output Total 250 ml 200 ml Balance -10 ml 260 ml Intake Oral 240 ml 460 ml Output Urine Total 250 ml 200 ml # Voids 1 1 Laboratory Tests 10/12/17 05:50: White Blood Count 9.8, Red Blood Count 3.69L, Hemoglobin 11.2L, Hematocrit 32.6L , Mean Corpuscular Volume 88, Mean Corpuscular Hemoglobin 30.5, Mean Corpuscular Hemoglobin Concent 34.4, Red Cell Distribution Width 15.7H, Platelet Count 518H, Mean Platelet Volume 6.5, Neutrophils (%) (Auto) 83.4H, Lymphocytes (%) (Auto) 8.5L, Monocytes (%) (Auto) 4.2, Eosinophils (%) (Auto) 2.8, Basophils (%) (Auto) 1.0, Sodium Level 131L, Potassium Level 4.1, Chloride Level 95L, Carbon Dioxide Level 30, Anion Gap 6, Blood Urea Nitrogen 13, Creatinine 0.6, Estimat Glomerular Filtration Rate > 60, Glucose Level 83, Calcium Level 10.8H Height (Feet): 5 Height (Inches): 3.00 Weight (Pounds): 72 General Appearance: no apparent distress Neck: supple Cardiovascular: normal rate Respiratory/Chest: decreased breath sounds Abdomen: non tender Chris Spencer Oct 12, 2017 23:08
--- NOTE | 2017-10-12 23:21 | Pulmonology Progress Note ---
Assessment/Plan Problems: (1) Intra-abdominal free air of unknown etiology (2) Perforated sigmoid colon (3) Sepsis Assessment/Plan feeling better adjust pain meds/ no new complains all reviewed pain management add methadone, change to 5 mg. palliative care were discussed with patient, she agreed to hospice upon discharge. dc planning for am, home with hospice Subjective ROS Limited/Unobtainable: No Allergies: Coded Allergies: No Known Allergies (Unverified , 09/10/17) Objective Last 24 Hour Vital Signs Date Time Temp Pulse Resp B/P (MAP) Pulse Ox O2 Delivery O2 Flow Rate FiO2 10/12/17 20:30 98.0 77 17 96/58 98 10/12/17 18:00 74 95/57 10/12/17 16:00 98.1 74 18 95/61 98 10/12/17 16:00 Room Air 10/12/17 12:00 97.7 74 17 100/62 98 10/12/17 12:00 Room Air 10/12/17 09:01 82 106/63 10/12/17 08:00 Room Air 10/12/17 08:00 97.7 82 18 106/63 97 10/12/17 04:26 97.5 77 17 120/70 97 10/12/17 00:29 97.9 74 17 115/76 98 Intake and Output 10/11/17 10/12/17 19:00 07:00 Intake Total 240 ml 460 ml Output Total 250 ml 200 ml Balance -10 ml 260 ml Intake Oral 240 ml 460 ml Output Urine Total 250 ml 200 ml # Voids 1 1 Objective General Appearance: WD/WN, no apparent distress, ON tpn, NGtube in place HEENT: normocephalic, atraumatic Neck: non-tender, normal alignment Respiratory/Chest: chest wall non-tender, lungs clear Breasts: no masses Cardiovascular/Chest: normal rate Abdomen: normal bowel sounds, no organomegaly Genitourinary/Rectal: normal genital exam Extremities: normal range of motion Laboratory Tests 10/12/17 05:50: White Blood Count 9.8, Red Blood Count 3.69L, Hemoglobin 11.2L, Hematocrit 32.6L , Mean Corpuscular Volume 88, Mean Corpuscular Hemoglobin 30.5, Mean Corpuscular Hemoglobin Concent 34.4, Red Cell Distribution Width 15.7H, Platelet Count 518H, Mean Platelet Volume 6.5, Neutrophils (%) (Auto) 83.4H, Lymphocytes (%) (Auto) 8.5L, Monocytes (%) (Auto) 4.2, Eosinophils (%) (Auto) 2.8, Basophils (%) (Auto) 1.0, Sodium Level 131L, Potassium Level 4.1, Chloride Level 95L, Carbon Dioxide Level 30, Anion Gap 6, Blood Urea Nitrogen 13, Creatinine 0.6, Estimat Glomerular Filtration Rate > 60, Glucose Level 83, Calcium Level 10.8H JL CHAVEZ Oct 12, 2017 23:21
--- NOTE | 2017-10-13 17:32 | Discharge Summary ---
Discharge Summary Hospital Course Date of Admission Sep 22, 2017 at 08:23 Date of Discharge Oct 12, 2017 at 22:15 Admitting Diagnosis interactable vomiting and abdominal pain KAPIL Connolly is a 32 year old female who was admitted on Sep 22, 2017 at 08: 23 for Interactable Vomiting And Abdominal Pain Hospital Course [id number] Discharge Discharge Disposition Patient was discharged to Home with Hospice (50) Discharge Diagnoses: Brandi Rogers NP Oct 13, 2017 17:32
--- NOTE | 2017-10-14 03:45 | Discharge Summary 2 SIG ---
DATE OF ADMISSION: 09/22/2017 DATE OF DISCHARGE: 10/12/2017 CONSULTANTS: 1. Gonzalo Lopez M.D. 2. Dimitrios Yung M.D. 3. Lon Jordan M.D. 4. Chris Spencer M.D. 5. Grant Ochoa M.D. 6. Lakesha Zabala M.D. 7. Armani Ingram M.D. BRIEF HOSPITAL COURSE: The patient is a 32-year-old female, who is from home was taken by EMS to [facility] ED for evaluation of abdominal pain. Pain was described to be sharp and centralized with associated diarrhea and recurring blood in stool. Denied nausea, vomiting, fever, or chills. She has history of cervical CA and has been off chemotherapy for a month. On evaluation at ED, she was febrile, temperature 100.5. Hemoglobin was 7.3. CT scan showed free air on CT with dilated loops of bowel. She was given IV antibiotics and pain medications and was started on blood transfusion. Dr. Lopez was consulted. The patient underwent exploratory laparotomy with lysis of adhesions; partial right hemicolectomy with primary anastomosis, and resection of the rectosigmoid with Katerina pouch and colostomy. Operative findings showed perforation on the cecum and rectosigmoid area. Postoperatively, the patient was continued on NPO status. NG tube was inserted to low intermittent suction. She was given IV hydration. Urine culture with mixed gram-positive organisms. She was given pain management. She was given initially Zosyn. Cultures showed Enterococcus, E. coli, and Jennyfer. Fluconazole was added and was later on changed to Unasyn. She was continued on fluconazole. The patient was placed on NPO. TPN was eventually started. She was finally able to take p.o. diet on 10/01/2017 and diet was slowly advanced. She had tachycardia, which resolved from intravenous hydration. TPN was adjusted based on electrolyte abnormalities. Methadone was added for the patient's pain management. Overall, prognosis is poor. The patient agreed for hospice/palliative care and was eventually discharged home with hospice. FINAL DIAGNOSES: 1. Perforated viscus status post exploratory laparotomy with partial right hemicolectomy and resection of the rectosigmoid with Katerina pouch and colostomy. 2. Sepsis. 3. Urinary tract infection. 4. Anemia of chronic disease. 5. Acute anemia requiring blood transfusion. 6. Severe protein-calorie malnutrition. 7. Acute bowel peritonitis with Escherichia coli, Enterococcus, Jennyfer, and Prevotella. 8. Cervical cancer, metastatic. 9. Sinus tachycardia. 10. Hypotension. 11. Hyponatremia. 12. Hyperkalemia. 13. Dehydration. 14. Acute renal failure. 15. Sacral unstageable pressure ulcer. DISPOSITION: The patient was discharged home with hospice. DISCHARGE MEDICATIONS: Refer to medication list. Dano Guillaume D.O. I have been assigned to dictate discharge summary on this account and I was not involved in the patient's management. Brandi Rogers N.P. DR: LISA JOB#: [id number] CC:
--- NOTE | 2017-10-18 13:09 | Physician Query ---
--------- THIS DOCUMENT IS A PERMANENT PART OF THE MEDICAL RECORD --------- PLEASE COMPLETE DOCUMENT BEFORE SIGNING Dear Dr. FELICIANO Date: 10/18/17 Denial Resolution Specialist/CDS Name: AARTI SANCHEZ, CCS Exercise your independent professional judgment when responding to the query. Questions asked do not imply a particular answer is desired or expected. We greatly appreciate your clarification on this issue. CLINICAL DOCUMENTATION STATES: WOUND CARE NURSE NOTES: Wound Assessment Wound Number: 1 Wound Present on Admission: No New Wound: Yes Status Change of Wound: No Wound Location Body Site Modif: mid Wound Location Body Site: sacral Wound Type: pressure ulcer Neelima Test: Does not Neelima Pressure Ulcer Stage: Unstageable Wound Thickness: Full Thickness Wound Length: 4.5 Wound Width: 4.5 Wound Depth: utd Percent of Wound Bed Yellow/Wh: 10 Percent of Wound Black/Brown: 90 Wound Drainage Amount: None Wound Drainage Odor: None/Absent Tissue Surrounding Wound: Indurated Wound General Appearance: Blackened Wound Comment #1 Sacral unstageable pressure ulcer ----- Clarification is needed for one (or more) of the following conditions in order to accurately assign the "present on admission' indicator. Please choose the answer that best indicates whether the associated condition was present at the time of the order for inpatient admission. DIAGNOSIS:Sacral unstageable pressure ulcer Was the 'SACRAL ULCER' Present on admission? [] YES [] NO [] Clinically Undeterminable SONIDO FELICIANO D.O. DATE & TIME [facility]
== END 2017-10-12 22:15 | disposition hospice, home (50) | DRG 221 ==
LOC: EDBD 07:32 → EMR 08:16 → ICU 08:23 → EDBEDREQ 08:35 → EDBEDREQSVC 10:46 → EDBEDREQ 10:46 → EDBEDREQSVC 10:50 → EDBEDREQ 10:50 → ICU 18:18 → 2E 09-23 07:00 → 4E 09-25 15:57 → 3E 10-07 18:50
PROC: 0D1N0Z4 Bypass Sigmoid Colon to Cutaneous, Open Approach (ICD-10-PCS; 2017-09-22)
PROC: 30233N1 Transfusion of Nonautologous Red Blood Cells into Peripheral Vein, Percutaneous Approach (ICD-10-PCS; 2017-09-22)
PROC: 30233N1 Transfusion of Nonautologous Red Blood Cells into Peripheral Vein, Percutaneous Approach (ICD-10-PCS; 2017-09-22)
PROC: 0DTN0ZZ Resection of Sigmoid Colon, Open Approach (ICD-10-PCS; principal; 2017-09-22 14:30)
DX: K63.1 Perforation of intestine (nontraumatic) (principal); E43 Unspecified severe protein-calorie malnutrition; A41.9 Sepsis, unspecified organism; N17.9 Acute kidney failure, unspecified; L89.150 Pressure ulcer of sacral region, unstageable; I95.9 Hypotension, unspecified; E87.1 Hypo-osmolality and hyponatremia; E87.5 Hyperkalemia; C53.9 Malignant neoplasm of cervix uteri, unspecified; D62 Acute posthemorrhagic anemia; K92.2 Gastrointestinal hemorrhage, unspecified; Z68.1 Body mass index [BMI] 19.9 or less, adult; D47.3 Essential (hemorrhagic) thrombocythemia; R62.7 Adult failure to thrive; E86.9 Volume depletion, unspecified; B96.20 Unspecified Escherichia coli [E. coli] as the cause of diseases classified elsewhere; B95.2 Enterococcus as the cause of diseases classified elsewhere; E86.0 Dehydration; Z51.5 Encounter for palliative care; D63.8 Anemia in other chronic diseases classified elsewhere; Z90.710 Acquired absence of both cervix and uterus
CPT/HCPCS: 36415; 36600; 71045; 74177; 80048; 80053; 80170; 81001; 81003; 81025; 82043; 82044; 82248; 82570; 82728; 82803; 82962; 83540; 83550; 83605; 83690; 83735; 84100; 84134; 84300; 85007; 85025; 85610; 85651; 86140; 86850; 86900; 86901; 86920; 87070; 87075; 87081; 87086; 87181; 87205; 93005; 94002; 94003; 94150; 94664; 97802; 99285; A4246; C9399; J1580; J1815; J2250; J2405; J2765

== ENCOUNTER 2017-12-03 21:39 | Emergency (ER) | payer MEDICAID, OTHER ==
[~2017-12-03] VITALS: Ht 160 cm; Wt 34.0 kg
[~2017-12-03 21:39] MED LIST changes: +AUGMENTIN 875-1 EAC1 ORAL; +DILAUDID8 MG PO; +FLUCONAZOLE100 MG ORAL; +METHADONE H5 MG/5 M1 PO; +REGLAN5 MG ORAL
[2017-12-03 21:45] VITALS: BP 110/74
[2017-12-03] MEDS ORDERED: Morphine Sulfate 4mg/ml Inj IVP ONE (22:15)
--- NOTE | 2017-12-03 22:38 | Emergency Room Report ---
History of Present Illness General Chief Complaint: Generalized Weakness Source: Patient, Family Member Present Illness HPI This is an unfortunate 32-year-old -[place] female with a history of stage IV cervical cancer. She fell chemotherapy. She is in hospice at home right now. She presents with chief complaint of generalized weakness and dehydration. Brought in by her . Not eating for the last few days. Unable to keep anything down. No nausea no vomiting. No strength. Her , was told to bring her to the hospital. He brought her to the nearest [facility] instead of [facility]. Allergies: Coded Allergies: No Known Allergies (Unverified , 09/10/17) Patient History Past Medical History: see triage record, old chart reviewed Past Surgical History: other Pertinent Family History: none Social History: Denies: smoking Last Menstrual Period: unk Now: No Immunizations: other Reviewed Nursing Documentation: PMH: Agreed; PSxH: Agreed Nursing Documentation-PMH Hx Cardiac Problems: No Hx Cancer: Yes - Cervical Hx Gastrointestinal Problems: No Hx Neurological Problems: No Review of Systems Constitutional: Reports: weakness Eye: Denies: eye pain, blurred vision ENT: Denies: ear pain, nose congestion, throat swelling Respiratory: Denies: cough, shortness of breath Cardiovascular: Denies: chest pain, palpitations Gastrointestinal: Denies: abdominal pain, diarrhea, nausea, vomiting Musculoskeletal: Denies: back pain, joint pain Skin: Denies: rash Neurological: Denies: headache, numbness Endocrine: Denies: increased thirst, increased urine Hematologic/Lymphatic: Denies: easy bruising All Other Systems: negative except mentioned in HPI Physical Exam Vital Signs Date Time Temp Pulse Resp B/P (MAP) Pulse Ox O2 Delivery O2 Flow Rate FiO2 12/03/17 21:40 97.2 81 16 114/78 100 Room Air 97.2 vitals normal Sp02 EP Interpretation: reviewed, normal General Appearance: alert, cachetic Head: normocephalic, atraumatic Eyes: bilateral eye PERRL, bilateral eye EOMI ENT: hearing grossly normal, normal pharynx Neck: full range of motion, supple, no meningismus Respiratory: chest non-tender, lungs clear, normal breath sounds Cardiovascular #1: regular rate, rhythm, no murmur Gastrointestinal: normal bowel sounds, no mass, no organomegaly, no bruit, non- distended, tenderness - diffuse Musculoskeletal: back normal, normal range of motion, swelling - lower extremities Neurologic: alert, oriented x3 Psychiatric: mood/affect normal Skin: warm/dry Medical Decision Making Diagnostic Impression: Primary Impression: Episode of generalized weakness Additional Impressions: ARF (acute renal failure) Qualified Codes: N17.9 - Acute kidney failure, unspecified Primary cervical cancer with metastasis to other site ER Course Patient presents with generalize weakness. She now has acute renal failure. Be endocrine and was normal on discharge in October from here. She was made DO NOT RESUSCITATE in hospice after admission here. We'll transfer to [facility] for placement and IV hydration. Prognosis is poor. I discussed the case with Dr. Franco at [facility]. She accepted patient for transfer. Laboratory Tests Test 12/03/17 22:15 12/03/17 23:45 White Blood Count 26.7 K/UL (4.8-10.8) *H Red Blood Count 4.62 M/UL (4.20-5.40) Hemoglobin 12.4 G/DL (12.0-16.0) Hematocrit 36.9 % (37.0-47.0) L Mean Corpuscular Volume 80 FL (80-99) Mean Corpuscular Hemoglobin 26.7 PG (27.0-31.0) L Mean Corpuscular Hemoglobin Concent 33.5 G/DL (32.0-36.0) Red Cell Distribution Width 12.9 % (11.6-14.8) Platelet Count 357 K/UL (150-450) Mean Platelet Volume 6.2 FL (6.5-10.1) L Neutrophils (%) (Auto) % (45.0-75.0) Lymphocytes (%) (Auto) % (20.0-45.0) Monocytes (%) (Auto) % (1.0-10.0) Eosinophils (%) (Auto) % (0.0-3.0) Basophils (%) (Auto) % (0.0-2.0) Neutrophils % (Manual) Pending Lymphocytes % (Manual) Pending Platelet Estimate Pending Platelet Morphology Pending Sodium Level Pending Potassium Level Pending Chloride Level Pending Carbon Dioxide Level 18 MMOL/L (21-32) L Blood Urea Nitrogen 261 mg/dL (7-18) H Creatinine 7.6 MG/DL (0.55-1.30) H Estimat Glomerular Filtration Rate 7.5 mL/min (>60) Glucose Level 101 MG/DL (74-106) Calcium Level 7.9 MG/DL (8.5-10.1) L Total Bilirubin 0.5 MG/DL (0.2-1.0) Aspartate Amino Transf (AST/SGOT) 27 U/L (15-37) Alanine Aminotransferase (ALT/SGPT) 34 U/L (12-78) Alkaline Phosphatase 96 U/L (46-116) Troponin I 0.000 ng/mL (0.000-0.056) Total Protein 8.0 G/DL (6.4-8.2) Albumin 3.0 G/DL (3.4-5.0) L Globulin 5.0 g/dL Albumin/Globulin Ratio 0.6 (1.0-2.7) L Lipase 79 U/L (73-393) Urine Color Pale yellow Urine Appearance Clear Urine pH 5 (4.5-8.0) Urine Specific [place] 1.015 (1.005-1.035) Urine Protein Negative (NEGATIVE) Urine Glucose (UA) Negative (NEGATIVE) Urine Ketones Negative (NEGATIVE) Urine Occult Blood Negative (NEGATIVE) Urine Nitrite Negative (NEGATIVE) Urine Bilirubin Negative (NEGATIVE) Urine Urobilinogen Normal MG/DL (0.0-1.0) Urine Leukocyte Esterase Negative (NEGATIVE) Lab Results Impression labs showed acute renal failure EKG Diagnostic Results Rate: normal Rhythm: NSR ST Segments: no acute changes Rhythm Strip Diag. Results Rhythm Strip Time: 22:37 EP Interpretation: yes Rate: 80 Rhythm: NSR, no PVC's, no ectopy Chest X-Ray Diagnostic Results Chest X-Ray Diagnostic Results : Chest X-Ray Ordered: Yes # of Views/Limited/Complete: 1 View Indication: Shortness of Breath EP Interpretation: Yes Interpretation: no consolidation, no effusion, no pneumothorax, no acute cardiopulmonary disease Impression: No acute disease Electronically Signed by: Lei Wilkerson MD Last Vital Signs Date Time Temp Pulse Resp B/P (MAP) Pulse Ox O2 Delivery O2 Flow Rate FiO2 12/03/17 22:32 97.2 12/03/17 21:45 84 17 110/74 100 Room Air Status: improved Disposition: XFER SHT-TRM HOSP Condition: Stable Referrals: [facility] (PCP) LEI WILKERSON M.D. Dec 03, 2017 22:38
[2017-12-03 22:45] VITALS: BP 98/62
[2017-12-03 23:02] LABS: HEMATOCRIT 36.9 % (37.0-47.0); HEMOGLOBIN 12.4 G/DL (12.0-16.0); MEAN CORPUSCULAR VOLUME 80 FL (80-99); PLATELET COUNT 357 K/UL (150-450); RED BLOOD COUNT 4.62 M/UL (4.20-5.40); RED CELL DISTRIBUTION WIDTH 12.9 % (11.6-14.8); WHITE BLOOD COUNT 26.7 K/UL (4.8-10.8)
[2017-12-03 23:45] VITALS: BP 105/63
[2017-12-04 00:01] LABS: APPEARANCE,URINE CLEAR; BILIRUBIN, URINE NEGATIVE (NEGATIVE); COLOR,URINE PALE YELLOW; GLUCOSE, URINE (UA) NEGATIVE (NEGATIVE); KETONES,URINE NEGATIVE (NEGATIVE); LEUKOCYTE ESTERASE ,URINE NEGATIVE (NEGATIVE); NITRITE,URINE NEGATIVE (NEGATIVE); PH,URINE 5 (4.5-8.0); PROTEIN,URINE NEGATIVE (NEGATIVE); UROBILINOGEN,URINE NORMAL MG/DL (0.0-1.0)
[2017-12-04 00:17] LABS: ALANINE AMINOTRANSFERASE 34 U/L (12-78); ALBUMIN/GLOBULIN RATIO 0.6 (1.0-2.7); ALKALINE PHOSPHATASE 96 U/L (46-116); ASPARTATE AMINO TRANSFERASE 27 U/L (15-37); BILIRUBIN,TOTAL 0.5 MG/DL (0.2-1.0); BLOOD UREA NITROGEN 261 mg/dL (7-18); CALCIUM 7.9 MG/DL (8.5-10.1); CARBON DIOXIDE 18 MMOL/L (21-32); CREATININE 7.6 MG/DL (0.55-1.30)
[2017-12-04 00:45] VITALS: BP 113/64
[2017-12-04] MEDS ORDERED: Morphine Sulfate 4mg/ml Inj IVP ONE ×2 (01:30→03:15)
[2017-12-04 01:45] VITALS: BP 110/42
[2017-12-04 02:45] VITALS: BP 113/56
[2017-12-04 03:40] VITALS: BP 113/56
[2017-12-04 06:59] LABS: CHLORIDE 94 MMOL/L (98-107); SODIUM 134 MMOL/L (136-145)
[2017-12-04 07:06] LABS: POTASSIUM 7.2 MMOL/L (3.5-5.1)
--- NOTE | 2017-12-04 14:23 | Diagnostic Imaging Report ---
Indication: Shortness of breath Technique: One view of the chest Comparison: 09/25/2017 Findings: The lungs and pleural spaces are clear. The heart size is normal. Previously demonstrated nasogastric tube and right jugular central venous catheter are no longer evident Impression: Negative
--- NOTE | 2017-12-04 18:49 | Cardiology Report ---
APPROVED REPORT EKG Measurement Heart [id number] Normal sinus rhythm Rightward axis Borderline ECG
== END 2017-12-04 03:40 | disposition short-term general hospital (02) ==
LOC: EMR 22:10
DX: R53.1 Weakness (principal); N17.9 Acute kidney failure, unspecified; C53.9 Malignant neoplasm of cervix uteri, unspecified; C79.89 Secondary malignant neoplasm of other specified sites; Z51.5 Encounter for palliative care
CPT/HCPCS: 36415; 71045; 80053; 81003; 83690; 84484; 85007; 85025; 93005; 96361; 96374; 96375; 99285; J2270; J2405

== ENCOUNTER 2017-12-05 03:40 | Inpatient (IN) | payer MEDICAID ==
[~2017-12-05] VITALS: Ht 157.5 cm; Wt 34.0 kg
[2017-12-05 04:20] VITALS: BP 82/45
--- NOTE | 2017-12-05 05:23 | Emergency Room Report ---
History of Present Illness General Chief Complaint: Generalized Weakness Source: Family Member Present Illness HPI Unfortunate patient with history of cervical cancer with metastatic disease Patient is on hospice Was dispositioned home at 9 PM just a few hours ago Family however feels of the patient appears more dehydrated Had 2 episodes of lapse of consciousness and what appeared to be syncopal episode while laying down They report the patient told him to call paramedics And therefore they agreed Patient herself looks extremely ill, cachectic sluggish to respond Allergies: Coded Allergies: No Known Allergies (Unverified , 09/10/17) Patient History Limited by: medical condition Past Medical History: see triage record Pertinent Family History: unable to obtain Reviewed Nursing Documentation: PMH: Agreed; PSxH: Agreed Nursing Documentation-PMH Hx Cardiac Problems: No Hx Cancer: Yes - Cervical Hx Gastrointestinal Problems: No Hx Neurological Problems: No Review of Systems All Other Systems: limited - Other than the ones mentioned in the history of present illness all others are reviewed however they do stay limited due to the patient's mental status Physical Exam Vital Signs Date Time Temp Pulse Resp B/P (MAP) Pulse Ox O2 Delivery O2 Flow Rate FiO2 12/05/17 03:43 104 20 82/45 97 Room Air Sp02 EP Interpretation: reviewed, normal General Appearance: severe distress, cachetic Head: atraumatic Eyes: bilateral eye PERRL, bilateral eye other - Bilateral sunken eyes ENT: dry mucus membranes Neck: supple Respiratory: lungs clear Cardiovascular #1: regular rate, rhythm, no edema Gastrointestinal: non tender, soft Musculoskeletal: other - Patient extremely ill, sluggish to respond no obvious focal deficit in upper extremity, Neurologic: responsive - To verbal and physical stimuli Skin: other - Poor turgor Lymphatic: no adenopathy Medical Decision Making Diagnostic Impression: Primary Impression: Renal failure Additional Impressions: Cervical cancer Hospice care ER Course Patient appears ill Cachectic Is on hospice care In the ER patient was provided with further hydration Review of records from yesterday reveals significant kidney disease with hyperkalemia On discussion with [facility] patient did not have any repeat blood work or further intervention at their facility yesterday I did reiterate and have discussion with the patient's significant other of the patient's extreme status Extremely poor prognosis He does voice understanding Given the continuous care patient is recommended for transfer to primary facility There is concern of acute decompensation of possible cardiac arrest in route however patient is to remain DO NOT RESUSCITATE and hospice care Please note that thissection is added to the note at time of editing on December 06 at 3 PM. It appears the patient was requested by [facility] to stay at this facility given the patient's hypotensive ideology and concern for acute decompensation in route that is appropriate and the patient will be made for further care in extremely critical condition with poor prognosis. Labs Test 12/05/17 03:45 12/05/17 04:40 White Blood Count 27.7 K/UL (4.8-10.8) Red Blood Count 4.64 M/UL (4.20-5.40) Hemoglobin 12.5 G/DL (12.0-16.0) Hematocrit 37.7 % (37.0-47.0) Mean Corpuscular Volume 81 FL (80-99) Mean Corpuscular Hemoglobin 26.9 PG (27.0-31.0) Mean Corpuscular Hemoglobin Concent 33.1 G/DL (32.0-36.0) Red Cell Distribution Width 13.3 % (11.6-14.8) Platelet Count 261 K/UL (150-450) Mean Platelet Volume 6.5 FL (6.5-10.1) Neutrophils (%) (Auto) % (45.0-75.0) Lymphocytes (%) (Auto) % (20.0-45.0) Monocytes (%) (Auto) % (1.0-10.0) Eosinophils (%) (Auto) % (0.0-3.0) Basophils (%) (Auto) % (0.0-2.0) Sodium Level 136 MMOL/L (136-145) Potassium Level 6.4 MMOL/L (3.5-5.1) Chloride Level 103 MMOL/L (98-107) Carbon Dioxide Level 15 MMOL/L (21-32) Anion Gap 18 mmol/L (5-15) Blood Urea Nitrogen 242 mg/dL (7-18) Creatinine 6.3 MG/DL (0.55-1.30) Estimat Glomerular Filtration Rate 9.3 mL/min (>60) Glucose Level 36 MG/DL (74-106) Calcium Level 6.0 MG/DL (8.5-10.1) Total Bilirubin 0.5 MG/DL (0.2-1.0) Aspartate Amino Transf (AST/SGOT) 50 U/L (15-37) Alanine Aminotransferase (ALT/SGPT) 46 U/L (12-78) Alkaline Phosphatase 126 U/L (46-116) Total Creatine Kinase 412 U/L (26-308) Creatine Kinase MB 3.0 NG/ML (0.0-3.6) Creatine Kinase MB Relative Index 0.7 Total Protein 6.8 G/DL (6.4-8.2) Albumin 2.5 G/DL (3.4-5.0) Globulin 4.3 g/dL Albumin/Globulin Ratio 0.6 (1.0-2.7) Lipase 85 U/L (73-393) Rhythm Strip Diag. Results EP Interpretation: yes Rate: 101 Rhythm: no PVC's, no ectopy, other - Sinus tach Chest X-Ray Diagnostic Results Chest X-Ray Diagnostic Results : Chest X-Ray Ordered: Yes # of Views/Limited/Complete: 1 View Indication: Chest Pain EP Interpretation: Yes Interpretation: no consolidation, no effusion, no pneumothorax, no acute cardiopulmonary disease Impression: No acute disease Electronically Signed by: Nadia Costa DO Last Vital Signs Date Time Temp Pulse Resp B/P (MAP) Pulse Ox O2 Delivery O2 Flow Rate FiO2 12/05/17 03:43 104 20 82/45 97 Room Air Status: improved Disposition: ADMITTED INPATIENT Condition: Critical Referrals: [facility] (PCP) Nadia Costa DO Dec 05, 2017 05:23
[2017-12-05 05:35] LABS: HEMATOCRIT 37.7 % (37.0-47.0); HEMOGLOBIN 12.5 G/DL (12.0-16.0); MEAN CORPUSCULAR VOLUME 81 FL (80-99); PLATELET COUNT 261 K/UL (150-450); RED BLOOD COUNT 4.64 M/UL (4.20-5.40); RED CELL DISTRIBUTION WIDTH 13.3 % (11.6-14.8)
[2017-12-05 05:46] LABS: WHITE BLOOD COUNT 27.7 K/UL (4.8-10.8)
[2017-12-05 06:12] LABS: ALANINE AMINOTRANSFERASE 46 U/L (12-78); ALBUMIN 2.5 G/DL (3.4-5.0); ALBUMIN/GLOBULIN RATIO 0.6 (1.0-2.7); ALKALINE PHOSPHATASE 126 U/L (46-116); ANION GAP 18 mmol/L (5-15); ASPARTATE AMINO TRANSFERASE 50 U/L (15-37); BILIRUBIN,TOTAL 0.5 MG/DL (0.2-1.0); BLOOD UREA NITROGEN 242 mg/dL (7-18); CARBON DIOXIDE 15 MMOL/L (21-32); CHLORIDE 103 MMOL/L (98-107); CREATINE KINASE 412 U/L (26-308); CREATININE 6.3 MG/DL (0.55-1.30); SODIUM 136 MMOL/L (136-145)
[2017-12-05 06:16] LABS: POTASSIUM 6.4 MMOL/L (3.5-5.1)
[2017-12-05 06:20] VITALS: BP 80/45
[2017-12-05 08:24] VITALS: BP 84/39
--- NOTE | 2017-12-05 08:26 | General Progress Note ---
Subjective Allergies: Coded Allergies: No Known Allergies (Unverified , 09/10/17) Subjective long d/w patient she is alert and oriented x 3 and is very clear that she does not want any intervention at all wants only comfort care no intervention at all desired wants DNR and end of life care d/w father explained to him - Tiff's wishes he will be coming in to discuss with her as to plan of care I had emphasized that what her wishes are will await any ongoing changes at present, will need to honor Tiff's wishes Objective Last 24 Hour Vital Signs Date Time Temp Pulse Resp B/P (MAP) Pulse Ox O2 Delivery O2 Flow Rate FiO2 12/05/17 06:20 84 8 80/45 99 Room Air 12/05/17 04:20 104 20 82/45 97 Room Air 12/05/17 03:43 104 20 82/45 97 Room Air Intake and Output 12/04/17 12/05/17 19:00 07:00 Intake Total 0 ml Balance 0 ml Intake Oral 0 ml Laboratory Tests 12/05/17 03:45: White Blood Count 27.7*H, Red Blood Count 4.64, Hemoglobin 12.5, Hematocrit 37.7 , Mean Corpuscular Volume 81, Mean Corpuscular Hemoglobin 26.9L, Mean Corpuscular Hemoglobin Concent 33.1, Red Cell Distribution Width 13.3, Platelet Count 261, Mean Platelet Volume 6.5, Neutrophils (%) (Auto) , Lymphocytes (%) ( Auto) , Monocytes (%) (Auto) , Eosinophils (%) (Auto) , Basophils (%) (Auto) , Neutrophils % (Manual) [Pending], Lymphocytes % (Manual) [Pending], Platelet Estimate [Pending], Platelet Morphology [Pending] 12/05/17 04:40: Sodium Level 136, Potassium Level 6.4*H, Chloride Level 103, Carbon Dioxide Level 15L, Anion Gap 18H, Blood Urea Nitrogen 242H, Creatinine 6.3H, Estimat Glomerular Filtration Rate 9.3, Glucose Level 36*L, Calcium Level 6.0#L, Total Bilirubin 0.5, Aspartate Amino Transf (AST/SGOT) 50H, Alanine Aminotransferase ( ALT/SGPT) 46, Alkaline Phosphatase 126H, Total Creatine Kinase 412H, Creatine Kinase MB 3.0, Creatine Kinase MB Relative Index 0.7, Total Protein 6.8, Albumin 2.5L, Globulin 4.3, Albumin/Globulin Ratio 0.6L, Lipase 85 Height (Feet): 5 Height (Inches): 2.00 Weight (Pounds): 75 STEPHAN SCOTT Dec 05, 2017 08:26
[2017-12-05] MEDS ORDERED: Morphine Sulfate 4mg/ml Inj IVP ONE (08:45)
[2017-12-05 09:32] VITALS: BP 73/34
[2017-12-05] MEDS ORDERED: Piperacillin/Tazobactam 3.375 GM in NS 110 ML IVPB ONE (11:00)
[2017-12-05] MEDS ORDERED: Zosyn 3.375gm inj ONE (11:04)
--- NOTE | 2017-12-05 11:15 | Diagnostic Imaging Report ---
Indication: Shortness of breath Technique: One view of the chest Comparison: For 09/23/2017 Findings: Lungs and pleural spaces are clear. Heart size is normal . No significant interim change Impression: No acute process
--- NOTE | 2017-12-05 11:30 | History and Physical Report ---
DATE OF ADMISSION: 12/05/2017 REASON FOR ADMISSION: Comfort care. HISTORY: This is a 32-year-old unfortunate female with history of end-stage metastatic cervical cancer was in comfort care. The patient was on hospice. The patient apparently was sent over at [facility], was discharged to home. Family brought her back in, thus she appeared to be more dehydrated with loss of consciousness. PAST MEDICAL HISTORY: As previously noted. MEDICATIONS: Noted. PHYSICAL EXAMINATION: GENERAL: Frail, cachectic-appearing female. VITAL SIGNS: The patient is currently hypotensive, blood pressure 80/45. HEENT: Temporal wasting. LUNGS: Moderate breath sounds. CARDIAC: Normal S1, S2. Regular rate and rhythm. ABDOMEN: Thin. SKIN: Poor skin turgor. LABORATORY DATA: Reviewed. White count 27.7. Chemistry is noted, potassium 6.4. IMPRESSION: 1. End-stage cervical cancer. 2. Cachexia. 3. On hospice. 4. Comfort care. 5. Leukocytosis. PLAN: Prognosis is very poor. The patient wants Do Not Resuscitate and comfort care only. [facility] does not want to transfer the patient due to hypotension at present. We will proceed with morphine drip and treat accordingly and we will update family. Harvinder Pulliam M.D. DR: SANNA JOB#: [id number] CC:
--- NOTE | 2017-12-05 17:39 | Cardiology Report ---
APPROVED REPORT EKG Measurement Heart [id number] Sinus tachycardia Rightward axis Abnormal ECG
[2017-12-05 20:00] VITALS: BP 117/54
--- NOTE | 2017-12-07 13:03 | Discharge Summary ---
Discharge Summary Discharge Summary Discharge Summary DATE OF ADMISSION: 12/05/2017 DATE OF DISCHARGE: 12/05/2017 BRIEF HOSPITAL COURSE: Patient is an unfortunate 32-year-old female with history of end-stage metastatic cervical cancer who was seen comfort care at home, on hospice. Patient was recently admitted to [facility], and was discharged to home. Family felt patient appeared more dehydrated and had 2 episodes of lapse of consciousness with what appeared to be syncopal episode while laying down. Paramedics were called in and patient was taken to ED. Patient looks extremely ill, cachectic, sluggish to respond. She was hypotensive, and was given IV hydration. Prognosis extremely poor. Patient remained DO NOT RESUSCITATE. [facility] does not want to transfer the patient due to hypotension. Patient is alert and oriented and was clear on her wishes and wants to be placed on comfort care. She was started on morphine drip and patient eventually shortly . FINAL DIAGNOSES: End stage cervical cancer Cachexia Hospice/comfort care/palliative care Leukocytosis DISPOSITION: Patient I have been assigned to dictate discharge summary on this account, and I was not involved in the patient's management. Brandi Rgoers NP Dec 07, 2017 13:03
== END 2017-12-05 22:46 | disposition expired | DRG 530 ==
LOC: EDBD 03:40 → EDUNIT# 03:40 → EMR 03:51 → EDBEDREQ 07:55 → 2E 07:56 → EDBEDREQ 09:17 → 2E 11:44
DX: C53.9 Malignant neoplasm of cervix uteri, unspecified (principal); E43 Unspecified severe protein-calorie malnutrition; R64 Cachexia; I95.9 Hypotension, unspecified; C79.9 Secondary malignant neoplasm of unspecified site; Z68.1 Body mass index [BMI] 19.9 or less, adult; Z51.5 Encounter for palliative care; Z66 Do not resuscitate
CPT/HCPCS: 36415; 71045; 80053; 82550; 82553; 82947; 82962; 83605; 83690; 85007; 85025; 87040; 87181; 93005; 99285